=== PATIENT | female | born 1985 | race African-American/Black ===

== ENCOUNTER 2019-12-01 10:56 | Emergency (ER) | payer SELFPAY ==
--- NOTE | 2019-12-01 11:00 | NUR ---
See downtime documentation
[2019-12-01] MEDS ORDERED: SODIUM CHLORIDE 0.9% 1000ML 1,000 ML IV SCH (11:30)
[2019-12-01] MEDS ORDERED: PROMETHAZINE 12.5MG/ NACL 0.9% 12.5 MG/50 ML BAG IV ONE (11:30)
[2019-12-01] MEDS ORDERED: FENTANYL CITRATE/PF 100MCG/2 ML INJ IV ONE (11:30)
[2019-12-01] MEDS ORDERED: PROMETHAZINE HCL (IM) 25 MG/ML VIAL ONE (11:41)
[2019-12-01] MEDS ORDERED: FENTANYL CITRATE/PF 100MCG/2 ML INJ ONE (11:41)
[2019-12-01] MEDS ORDERED: TYLENOL WITH C1 EACH PO (12:34)
[2019-12-01] MEDS ORDERED: PHENADOZ25 MG RC (12:34)
[2019-12-01] MEDS ORDERED: BACTRIM DS TAB1 EACH PO (12:34)
--- NOTE | 2019-12-01 12:57 | Diagnostic Imaging Report ---
EXAM: CT Abdomen and Pelvis WITHOUT intravenous contrast INDICATION: Flank pain COMPARISON: Pelvic ultrasound of the same day TECHNIQUE: Abdomen and pelvis were scanned utilizing a multidetector helical scanner from the lung base to the pubic symphysis without administration of IV contrast. Coronal and sagittal reformations were obtained. IV CONTRAST: None ORAL CONTRAST: None COMPLICATIONS: None RADIATION DOSE: Total DLP: 680 mGy*cm Dose modulation, iterative reconstruction, and/or weight based adjustment of the mA/kV was utilized to reduce the radiation dose to as low as reasonably achievable. FINDINGS: LOWER THORAX: Normal. HEPATOBILIARY: No focal liver lesion. Unremarkable gallbladder. SPLEEN: No splenomegaly. PANCREAS: No focal masses or ductal dilatation. ADRENALS: No adrenal nodules. KIDNEYS/URETERS: No hydronephrosis, stones, or solid mass lesions. PELVIC ORGANS/BLADDER: Unremarkable. PERITONEUM / RETROPERITONEUM: No free air or fluid. LYMPH NODES: No lymphadenopathy. VESSELS: Unremarkable. GI TRACT: No abnormal bowel thickening. No bowel obstruction. Normal appendix. BONES AND SOFT TISSUES: No acute osseous injury. No suspicious lytic or blastic lesions. IMPRESSION: No acute findings in the abdomen or pelvis. Specifically, no renal calculi or hydronephrosis. Signed by: Matthew Padilla MD on 12/01/2019 12:54 PM
--- NOTE | 2019-12-01 12:59 | Diagnostic Imaging Report ---
Exam: Pelvic ultrasound. History: Pelvic pain Comparison: CT abdomen and pelvis of the same day Findings: Transabdominal and endovaginal sonographic evaluation of the pelvis. The uterus is anteverted in position, measuring 6.2 x 3.7 x 5.2cm. Endometrial stripe thickness is 3 millimeters. The right ovary measures 2.8 x 2.3 x 2.5 cm and appears unremarkable. The left ovary is not well-visualized due to overlying bowel gas. No free fluid in the pelvis. Impression: Left ovary not well-visualized due to overlying bowel gas. Otherwise, normal pelvic ultrasound. Signed by: Matthew Padilla MD on 12/01/2019 12:55 PM
== END 2019-12-01 13:27 | disposition home or self-care (01) ==
LOC: FSED 10:56 → EDBD 10:56 → FSED 13:27
DX: R30.0 Dysuria (principal); R10.2 Pelvic and perineal pain; R11.2 Nausea with vomiting, unspecified
CPT/HCPCS: 74176; 76856; 80053; 81003; 81025; 85025; 87086; 99284; J2550; J3010; J7030

== ENCOUNTER 2019-12-30 20:40 | Emergency (ER) | payer OTHER ==
[~2019-12-30] VITALS: Ht 165.1 cm; Wt 68.0 kg
[~2019-12-30 20:40] MED LIST: BACTRIM DS TAB1 EACH PO; PHENADOZ25 MG RC; TYLENOL WITH C1 EACH PO
--- OUTSIDE RECORDS SUMMARY | 2019-12-30 20:45 | XMS REPORT | Clinical Summary ---
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 Active QUEtiapine (SEROQUEL) 100 Take 1 tablet 14 tablet 0 mg tabletIndications: by mouth at 8 Undifferentiated bedtime schizophrenia, nightly for Polysubstance abuse 14 days. Active citalopram (CELEXA) 20 mg Take 1 tablet 30 tablet 0 tabletIndications: PTSD by mouth 8 (post-traumatic stress daily. disorder) Active gabapentin (NEURONTIN) Take 1 90 capsule 0 400 mg capsule by 8 capsuleIndications: PTSD mouth 3 times (post-traumatic stress daily. disorder) Active nicotine polacrilex Place 1 Each 30 Each 0 07/01 (NICORETTE) 2 mg inside cheek 8 GumIndications: PTSD as needed for (post-traumatic stress Other disorder) (nicotene). Active QUEtiapine (SEROQUEL) 100 Take 1 tablet 30 tablet 0 mg tabletIndications: by mouth at 8 PTSD (post-traumatic bedtime stress disorder) nightly. Active QUEtiapine (SEROQUEL) 50 Take 1 tablet 60 tablet 0 07/01/201 mg tabletIndications: by mouth 2 8 PTSD (post-traumatic times daily. 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 Acute stress disorder 11/17/2011 Pelvic pain in female 02/06/2011 Drug ingestion Benzodiazepine abuse Moderate cocaine use disorder Cocaine use Substance-induced disorder Chronic pain of right thumb Encounters Care Team Description Date Type Specialty Tarsha Segovia RN 02/08/2019 Nurse Triage after 12/29/2018 Immunizations Name Administration Dates Next Due Ceftriazone 250mg 04/24/2011 Injection Rho (d) Immune Glob 1500u 03/14/2015 Vial Inj In Clinic Family History Medical History Relation Name Comments Cancer Mother ovarian Hypertension Mother Renal Disease Mother Relation Name Status Comments Mother Social History Date Tobacco Use Types Packs/Day Years Used Current Every Day Smoker Cigarettes 1 12 Smokeless Tobacco: Never Used Tobacco Cessation: Ready to Quit: No Comments: quit 1 month ago Drinks/Week oz/Week Comments Alcohol Use denies No Sex Assigned at Date Recorded Not on file Industry Job Start Date Occupation Not on file Not on file Not on file Travel End Travel History Travel Start No recent travel history available. Last Filed Vital Signs Not on file Plan of Treatment Health Maintenance Due Date Last Done Comments Cervical Cancer Scrn (3 12/20/2004 Yrs) IMM Influenza Seasonal 05/04/2020 Oct to October (>/= 19 yrs) Results Not on fileafter 12/29/2018 Insurance Type Payer Benefit Subscriber ID Effective Phone Address Plan / Dates Group [place] [id number] xxxxxxxxx 2018- [phone] [address] [facility] [id number] [place], [place] [employer]GRAM [id number] [facility] SELF-PAY SELF-PAY xxxxxx 2017-2 [address] [place] [address] Advance Directives Date Inactivated Comments Code Status Date Activated 07/02/2018 4:23 PM Full Code 06/17/2018 5:49 PM 05/05/2018 4:24 PM Full Code 04/29/2018 5:42 PM 10/20/2017 4:52 PM Full Code 10/15/2017 4:04 PM 11/01/2015 9:27 PM Full Code 10/26/2015 4:55 AM 03/29/2015 6:22 PM Full Code 03/28/2015 3:16 AM
--- OUTSIDE RECORDS SUMMARY | 2019-12-30 20:45 | XMS REPORT | Clinical Summary ---
Author Author [facility] Organization [facility] Address Unknown Phone Unavailable Care Team Providers Care Wine Steward Name Role Phone Philip Mcclain MD PCP Allergies Comments Active Allergy Reactions Severity Noted Date Nsaids (Non-Steroidal Anaphylaxis High 05/07/20 16 Anti-Inflammatory Drug) Penicillins Anaphylaxis High 04/09/2016 Phenazopyridine Anaphylaxis High Tongue swelling Risperidone Other (See 05/25/2019 Comments) Tomato Rash Low 04/28/2019 Ketorolac 12/17/2016 Tramadol Rash Low 12/07/2017 Ondansetron Hcl Rash Low 04/06/2019 Medications End Date Status Medication Sig Dispensed Refills Start Date 04/30/2019 Discontinued (Stop Taking at Discharge) ARIPiprazole (ABILIFY) 10 Take 10 mg by 0 MG tablet mouth every morning. 04/30/2019 Discontinued (Stop Taking at Discharge) cephalexin (KEFLEX) 500 Take 500 mg 0 MG capsule by mouth 4 (four) times a day. X 14 days. Started on 10-16-2016 04/30/2019 Discontinued (Reorder) citalopram (CeleXA) 20 MG Take 20 mg by 0 tablet mouth every morning. 04/30/2019 Discontinued (Reorder) clindamycin (CLEOCIN) 300 Take 300 mg 0 MG capsule by mouth 3 (three) times a day. X 14 days. Started on 10-16-2016 04/30/2019 Discontinued (Stop Taking at Discharge) diazePAM (VALIUM) 10 MG Take 10 mg by 0 tablet mouth 3 (three) times a day. 04/30/2019 Discontinued (Stop Taking at Discharge) zolpidem (AMBIEN) 10 mg Take 10 mg by 0 tablet mouth nightly as needed for sleep. 04/30/2019 Discontinued (Stop Taking at Discharge) promethazine (PHENERGAN) Take 1 tablet 20 tablet 0 25 MG tablet (25 mg total) 9 by mouth every 6 (six) hours as needed for nausea or vomiting for up to 30 days. 05/30/2019 citalopram (CeleXA) 20 MG Take 1 tablet 30 tablet 0 tabletIndications: major (20 mg total) 9 depressive disorder by mouth every morning for 30 days .major depressive disorder. 05/30/2019 ARIPiprazole (ABILIFY) 15 Take 1 tablet 30 tablet 0 MG tabletIndications: (15 mg total) 9 reports AH's by mouth daily for 30 days .reports AH's. 05/30/2019 cephalexin (KEFLEX) 500 Take 1 60 capsule 0 MG capsuleIndications: capsule (500 9 Osteomyelitis mg total) by mouth 2 (two) times a day for 30 days .Osteomyeliti s. 05/30/2019 clindamycin (CLEOCIN) 300 Take 1 90 capsule 0 MG capsuleIndications: capsule (300 9 Osteomyelitis mg total) by mouth 3 (three) times a day for 90 doses .Osteomyeliti s. X 14 days. Started on 10-16-2016 05/30/2019 acetaminophen-codeine Take 1 tablet 10 tablet 0 (TYLENOL WITH CODEINE #3) by mouth 9 300-30 mg per every 8 tabletIndications: acute (eight) hours pain as needed for moderate pain (in hNSDS) for up to 10 doses .Acute Pain. 05/30/2019 gabapentin (NEURONTIN) Take 1 90 capsule 0 300 mg capsule (300 9 capsuleIndications: mg total) by ANXIETY mouth 3 (three) times a day for 30 days .ANXIETY. 05/30/2019 nicotine (NICODERM CQ) 14 Place 1 patch 30 patch 0 mg/24 hrIndications: on the skin 9 smoking cessation daily for 30 days .Stop Smoking. 05/30/2019 traZODone (DESYREL) 100 Take 1 tablet 30 tablet 0 MG tabletIndications: (100 mg 9 insomnia associated with total) by depression mouth nightly as needed for sleep for up to 30 days .insomnia associated with depression. 06/23/2019 acetaminophen-codeine Take 1-2 15 tablet 0 06/04 (TYLENOL WITH CODEINE #3) tablets by 9 300-30 mg per mouth every 6 tabletIndications: acute (six) hours pain as needed for moderate pain for up to 3 days .Acute Pain. 08/16/2019 doxycycline (VIBRAMYCIN) Take 2 28 capsule 0 0 50 MG capsule capsules (100 0 mg total) by mouth 2 (two) times a day for 7 days. 10/09/2019 promethazine (PHENERGAN) Take 1 tablet 20 tablet 0 25 MG tablet (25 mg total) 0 by mouth every 6 (six) hours as needed for nausea or vomiting for up to 30 days. 09/16/2019 nitrofurantoin, Take 1 14 capsule 0 macrocrystal-monohydrate, capsule (100 0 (MACROBID) 100 MG capsule mg total) by mouth 2 (two) times a day for 7 days. Active Problems Problem Noted Date Right arm cellulitis 08/07/2019 Schizoaffective disorder 04/28/2019 affected by growth restriction 12/04 Suicidal ideation 12/04/2017 Polysubstance abuse 12/04/2017 Osteomyelitis 12/04/2017 Urinary tract infection affecting care of mother, ant epartum 11/27/2017 Osteomyelitis of finger of right hand 11/04/2016 Cellulitis 10/28/2016 Deep postoperative wound infection 10/28/2016 Osteomyelitis of finger 10/28/2016 Bacterial skin infection 10/25/2016 Cellulitis of finger of right hand 10/24/2016 Encounters Care Team Description Date Type Specialty Doni Martinez MD Lower abdominal pain (Primary Dx); Urinary tract infection without hematuria, site unspecified; Cocaine abuse (HCC) 09/09/2019 Emergency Emergency Medicine Denilson Connell DO Kandala, Ranganath, MD Right arm cellulitis (Primary Dx) 08/07/2019 [facility] General Internal Me dicine - Encounter 08/09/2019 Ele House MD Hemorrhagic ovarian cyst (Primary Dx); Right lower quadrant abdominal pain 06/20/2019 Emergency Emergency Medicine - 06/21/2019 Mart Renae MD Extrapyramidal symptom (Primary Dx); Suicidal ideations 06/08/2019 Emergency Emergency Medicine Rosales Goode DO Tran, Boi Phuong, MD Suicidal ideation (Primary Dx); Depression, unspecified depression type 05/27/2019 Emergency Emergency Medicine - 05/29/2019 05/27/2019 Intake Access Aly Navas MD Tardive dyskinesia (Primary Dx); Adverse effect of drug, initial encounter 05/25/2019 Emergency Emergency Medicine Corbin Leung MD Cocaine abuse (HCC) (Primary Dx); Drug induced hallucinations (HCC) 05/24/2019 Emergency Emergency Medicine Fernanda Noland MD Flack, James N., MD 04/27/2019 Hospital Psychiatry - Encounter 04/30/2019 Brian Pond MD Suicidal ideation (Primary Dx); Auditory hallucinations; Acute psychosis (HCC) 04/27/2019 Emergency Emergency Medicine 04/27/2019 Intake Access Pedro Underwood MD Lower abdominal pain (Primary Dx) 04/06/2019 Emergency Emergency Medicine after 12/29/2018 Immunizations Name Administration Dates Next Due Rho (D) Immune Globulin 11/02/2016 Tdap 08/18/2016 Family History Medical History Relation Name Comments No Known Problems Brother No Known Problems Cousin No Known Problems Father No Known Problems Maternal Aunt No Known Problems Maternal Grandfather No Known Problems Maternal Grandmother No Known Problems Maternal Uncle Cancer Mother No Known Problems Other No Known Problems Paternal Aunt No Known Problems Paternal Grandfather No Known Problems Paternal Grandmother No Known Problems Paternal Uncle No Known Problems Sister Relation Name Status Comments Brother Cousin Father Maternal Aunt Maternal Grandfather Maternal Grandmother Maternal Uncle Mother Other Paternal Aunt Paternal Grandfather Paternal Grandmother Paternal Uncle Sister Social History Date Tobacco Use Types Packs/Day Years Used Current Some Day Smoker Cigarettes 0.5 6 Smokeless Tobacco: Current User Tobacco Cessation: Ready to Quit: No; Co unseling Given: Yes Comments: states she quit smoking "6 months ago" Drinks/Week oz/Week Comments Alcohol Use No Sex Assigned at Date Recorded Not on file Industry Job Start Date Occupation Not on file Not on file Not on file Travel End Travel History Travel Start No recent travel history available. Last Filed Vital Signs Reading Time Taken Comments Vital Sign 106/59 09/09/2019 9:07 PM BOOKMOBILE CLERK Blood Pressure 81 09/09/2019 9:07 PM BOOKMOBILE CLERK Pulse 36.6 C (97.9 F) 09/09/2019 8:35 PM BOOKMOBILE CLERK Temperature 19 09/09/2019 9:07 PM BOOKMOBILE CLERK Respiratory Rate 99% 09/09/2019 9:07 PM BOOKMOBILE CLERK Oxygen Saturation - - Inhaled Oxygen Concentration 63.5 kg (140 lb) 09/09/2019 3:50 PM BOOKMOBILE CLERK Weight 165.1 cm (5' 5") 09/09/2019 3:50 PM BOOKMOBILE CLERK Height 23.3 09/09/2019 3:50 PM BOOKMOBILE CLERK Body Mass Index Plan of Treatment Health Maintenance Due Date Last Done Comments CERVICAL CANCER SCREENING 12/20/2004 INFLUENZA VACCINE 03/04/2020 Procedures Comments Procedure Name Priority Date/Time Associated Diag nosis US PELVIC TRANSABDOMINAL STAT 09/09/2019 7:35 PM BOOKMOBILE CLERK URINE CULTURE STAT 09/09/2019 5:54 PM BOOKMOBILE CLERK ESTIMATED GFR STAT 09/09/2019 4:55 PM BOOKMOBILE CLERK URINE DRUGS OF ABUSE STAT 09/09/2019 SCREEN 4:55 PM BOOKMOBILE CLERK HCG QUALITATIVE, SERUM STAT 09/09/2019 SCREEN 4:55 PM BOOKMOBILE CLERK URINALYSIS SCREEN AND STAT 09/09/2019 MICROSCOPY, WITH REFLEX 4:55 PM BOOKMOBILE CLERK TO CULTURE LIPASE LEVEL STAT 09/09/2019 4:55 PM BOOKMOBILE CLERK COMPREHENSIVE METABOLIC STAT 09/09/2019 PANEL 4:55 PM BOOKMOBILE CLERK HC COMPLETE BLD COUNT STAT 09/09/2019 W/AUTO DIFF 4:55 PM BOOKMOBILE CLERK ESTIMATED GFR Routine 08/09/2019 4:45 AM BOOKMOBILE CLERK BASIC METABOLIC PANEL Routine 08/09/2019 4:45 AM BOOKMOBILE CLERK URINE DRUGS OF ABUSE Routine 08/08/2019 SCREEN 2:15 PM BOOKMOBILE CLERK ESTIMATED GFR Routine 08/08/2019 5:06 AM BOOKMOBILE CLERK HC COMPLETE BLD COUNT Routine 08/08/2019 W/AUTO DIFF 5:06 AM BOOKMOBILE CLERK BASIC METABOLIC PANEL Routine 08/08/2019 5:06 AM BOOKMOBILE CLERK LACTIC ACID LEVEL, SEPSIS Timed 08/08/2019 - NOW AND REPEAT 2X EVERY 2:35 AM BOOKMOBILE CLERK 3 HOURS LACTIC ACID LEVEL, SEPSIS Timed 08/07/2019 - NOW AND REPEAT 2X EVERY 11:48 PM BOOKMOBILE CLERK 3 HOURS ESTIMATED GFR STAT 08/07/2019 9:25 PM BOOKMOBILE CLERK HCG QUALITATIVE, SERUM STAT 08/07/2019 SCREEN 9:25 PM BOOKMOBILE CLERK LACTIC ACID LEVEL, SEPSIS STAT 08/07/2019 - NOW AND REPEAT 2X EVERY 9:25 PM BOOKMOBILE CLERK 3 HOURS HC COMPLETE BLD COUNT STAT 08/07/2019 W/AUTO DIFF 9:25 PM BOOKMOBILE CLERK COMPREHENSIVE METABOLIC STAT 08/07/2019 PANEL 9:25 PM BOOKMOBILE CLERK BLOOD CULTURE, AEROBIC & Routine 08/07/2019 ANAEROBIC 9:25 PM BOOKMOBILE CLERK BLOOD CULTURE, AEROBIC & Routine 08/07/2019 ANAEROBIC 9:20 PM BOOKMOBILE CLERK US PELVIC TRANSVAGINAL STAT 06/21/2019 12:11 AM BOOKMOBILE CLERK US PELVIC TRANSABDOMINAL STAT 06/21/2019 12:[address] ABDOMEN PELVIS W STAT 06/20/2019 CONTRAST 11:14 PM BOOKMOBILE CLERK GRAM STAIN STAT 06/20/2019 9:23 PM BOOKMOBILE CLERK URINE CULTURE STAT 06/20/2019 9:23 PM BOOKMOBILE CLERK ESTIMATED GFR STAT 06/20/2019 8:58 PM BOOKMOBILE CLERK LIPASE LEVEL STAT 06/20/2019 8:58 PM BOOKMOBILE CLERK COMPREHENSIVE METABOLIC STAT 06/20/2019 PANEL 8:58 PM BOOKMOBILE CLERK HC COMPLETE BLD COUNT STAT 06/20/2019 W/AUTO DIFF 8:58 PM BOOKMOBILE CLERK HCG QUALITATIVE, URINE STAT 06/20/2019 SCREEN 8:54 PM BOOKMOBILE CLERK URINALYSIS SCREEN AND STAT 06/20/2019 MICROSCOPY, WITH REFLEX 8:54 PM BOOKMOBILE CLERK TO CULTURE ESTIMATED GFR STAT 06/08/2019 7:25 AM BOOKMOBILE CLERK COMPREHENSIVE METABOLIC STAT 06/08/2019 PANEL 7:25 AM BOOKMOBILE CLERK HC COMPLETE BLD COUNT STAT 06/08/2019 W/AUTO DIFF 7:25 AM BOOKMOBILE CLERK T4, FREE STAT 06/08/2019 7:02 AM BOOKMOBILE CLERK THYROID STIMULATING STAT 06/08/2019 HORMONE 7:02 AM BOOKMOBILE CLERK HCG QUALITATIVE, SERUM STAT 06/08/2019 SCREEN 7:02 AM BOOKMOBILE CLERK URINE DRUGS OF ABUSE STAT 06/08/2019 SCREEN 7:02 AM BOOKMOBILE CLERK ESTIMATED GFR STAT 05/27/2019 2:45 PM CDT SALICYLATE LEVEL STAT 05/27/2019 2:45 PM CDT ACETAMINOPHEN LEVEL STAT 05/27/2019 2:45 PM CDT HCG QUALITATIVE, SERUM STAT 05/27/2019 SCREEN 2:45 PM CDT ALCOHOL LEVEL, BLOOD STAT 05/27/2019 2:45 PM CDT CREATINE KINASE, TOTAL STAT 05/27/2019 (CPK) 2:45 PM CDT THYROID STIMULATING STAT 05/27/2019 HORMONE 2:45 PM CDT T4, FREE STAT 05/27/2019 2:45 PM CDT COMPREHENSIVE METABOLIC STAT 05/27/2019 PANEL 2:45 PM CDT HC COMPLETE BLD COUNT STAT 05/27/2019 W/AUTO DIFF 2:45 PM CDT ECG 12-LEAD Routine 05/27/2019 2:40 PM CDT ECG ED PRELIMINARY Routine 05/27/2019 INTERPRETATION 2:09 PM CDT ESTIMATED GFR STAT 05/25/2019 3:00 PM CDT BASIC METABOLIC PANEL STAT 05/25/2019 3:00 PM CDT HC COMPLETE BLD COUNT STAT 05/25/2019 W/AUTO DIFF 3:00 PM CDT ESTIMATED GFR STAT 05/24/2019 3:08 PM CDT SALICYLATE LEVEL STAT 05/24/2019 3:08 PM CDT ACETAMINOPHEN LEVEL STAT 05/24/2019 3:08 PM CDT HCG QUALITATIVE, SERUM STAT 05/24/2019 SCREEN 3:08 PM CDT ALCOHOL LEVEL, BLOOD STAT 05/24/2019 3:08 PM CDT THYROID STIMULATING STAT 05/24/2019 HORMONE 3:08 PM CDT T4, FREE STAT 05/24/2019 3:08 PM CDT COMPREHENSIVE METABOLIC STAT 05/24/2019 PANEL 3:08 PM CDT HC COMPLETE BLD COUNT STAT 05/24/2019 W/AUTO DIFF 3:08 PM CDT URINE DRUGS OF ABUSE STAT 05/24/2019 SCREEN 2:24 PM CDT URINALYSIS SCREEN AND STAT 05/24/2019 MICROSCOPY, WITH REFLEX 2:24 PM CDT TO CULTURE URINE CULTURE STAT 05/24/2019 2:24 PM CDT HEMOGLOBIN A1C Routine 04/28/2019 10:55 PM CDT LIPID PANEL Routine 04/28/2019 4:00 AM CDT URINALYSIS SCREEN AND STAT 04/27/2019 MICROSCOPY, WITH REFLEX 8:58 PM CDT TO CULTURE URINE DRUGS OF ABUSE STAT 04/27/2019 SCREEN 8:58 PM CDT URINE CULTURE STAT 04/27/2019 8:58 PM CDT ECG ED PRELIMINARY Routine 04/27/2019 INTERPRETATION 3:24 PM CDT SALICYLATE LEVEL STAT 04/27/2019 3:20 PM CDT ACETAMINOPHEN LEVEL STAT 04/27/2019 3:20 PM CDT T4, FREE STAT 04/27/2019 3:20 PM CDT THYROID STIMULATING STAT 04/27/2019 HORMONE 3:20 PM CDT HCG QUALITATIVE, SERUM STAT 04/27/2019 SCREEN 3:17 PM CDT CREATINE KINASE, TOTAL STAT 04/27/2019 (CPK) 3:17 PM CDT HC COMPLETE BLD COUNT STAT 04/27/2019 W/AUTO DIFF 3:17 PM CDT ESTIMATED GFR STAT 04/27/2019 3:17 PM CDT ALCOHOL LEVEL, BLOOD STAT 04/27/2019 3:17 PM CDT COMPREHENSIVE METABOLIC STAT 04/27/2019 PANEL 3:17 PM CDT ECG 12-LEAD STAT 04/27/2019 2:51 PM CDT HC COMPLETE BLD COUNT STAT 04/06/2019 W/AUTO DIFF 10:[address] ABDOMEN PELVIS W STAT 04/06/2019 CONTRAST 10:14 PM CDT ESTIMATED GFR STAT 04/06/2019 8:50 PM CDT LIPASE LEVEL STAT 04/06/2019 8:50 PM CDT COMPREHENSIVE METABOLIC STAT 04/06/2019 PANEL 8:50 PM CDT HCG QUALITATIVE, URINE STAT 04/06/2019 SCREEN 7:14 PM CDT URINALYSIS SCREEN AND STAT 04/06/2019 MICROSCOPY, WITH REFLEX 7:14 PM CDT TO CULTURE URINE CULTURE STAT 04/06/2019 7:14 PM CDT after 12/29/2018 Results * US Pelvic Transabdominal (09/09/2019 7:35 PM BOOKMOBILE CLERK) Only the most recent of 2 results within the time period is included. Specimen Narrative Performed At EXAMINATION: US PELVIC TRANSABDOMINAL [facility] CLINICAL HISTORY: pelvic pain COMPARISON: None. TECHNIQUE:Transabdominal sonographic im ages of the pelvis were obtained. The patient refused transvaginal examinatio n. FINDINGS: The uterus is 6.6 x 4.6 x 4.7 cm. The endometrial strip is 3 mm in thickness. There is no myometrial abnormality. Neither ovary is visualized. There is n o adnexal mass. Impression: Normal uterus. Ovaries not seen. Patien t refused transvaginal examination. [id number] Procedure Note Interface, Radiology Results Incoming - 09/09/2019 8:21 PM BOOKMOBILE CLERK EXAMINATION: US PELVIC TRANSABDOMINAL CLINICAL HISTORY: pelvic pain COMPARISON: None. TECHNIQUE:Transabdominal sonographic images of the pelvis were obtained. The patient refused transvaginal examination. FINDINGS: The uterus is 6.6 x 4.6 x 4.7 cm. The endometrial strip is 3 mm in thickness. There is no myometrial abnormality. Neither ovary is visualized. There is no adnexal mass. Impression: Normal uterus. Ovaries not seen. Patient refused transvaginal examination. [id number] Performing Organization Address City/State/Zipcode Ph one Number [facility] [address] [place] [address] * Urine culture (09/09/2019 5:54 PM BOOKMOBILE CLERK) Only the most recent of 5 results within the time period is included. Urine culture Mixed vane 10-4 col/cc [place] isolate Comment: [place] Specimen Information HOSPITAL Specimen Source: Urine Specimen Site: Clean catch Specimen Urine Performing Organization Address City/State/Zipcode Ph one Number [facility] DEPARTMENT OF [address] [place] [address] PATHOLOGY AND GENOMIC MEDICINE [facility] [address] [place] [address] HOSPITAL * Urinalysis screen and microscopy, with reflex to culture (09/09/2019 4:55 PM BOOKMOBILE CLERK) Only the most recent of 5 results within the time period is included. [facility] Specimen site Clean catch [facility] Color, UA Shazia [facility] Appearance, UA Turbid [facility] Specific 1.039 (H) 1.001 - 1.030 [place] gravity, [facility] pH, UA 5.0 5.0 - 9.0 [facility] Protein, UA 1+ (A) Negative [facility] Glucose, UA Negative Negative [facility] Ketones, UA Trace (A) Negative [facility] Bilirubin, UA Negative Negative [facility] Blood, UA Negative Negative [facility] Nitrite, UA Negative Negative [facility] Urobilinogen, <2.0 <2.0 E.U./dL [facility] Leukocyte Trace (A) Negative [place] esterase, [facility] Epithelial >20 /HPF [place] cells, [facility] WBC, UA 15 (H) 0 - 4 /HPF [facility] RBC, UA 21 (H) 0 - 5 /HPF [facility] Bacteria, UA Few None seen [facility] Yeast, UA None seen [facility] Yeast with None seen [place] [facility] Specimen Urine Performing Organization Address City/State/Zipcode Ph one Number [facility] [place] [address] [place], [place] [address] PATHOLOGY AND GENOMIC MEDICINE [facility] [address] [place] [address] [facility] * Estimated GFR (09/09/2019 4:55 PM BOOKMOBILE CLERK) Only the most recent of 11 results within the time period is included. [facility] Estimated GFR >=90 mL/min/1.73 m2 [place] Comment: [place] SUGAR Catergory Units [facility] Interpretation G1 >=90 Normal or high G2 60-89 Mildly decreased G3a 45-59 Mildly to moderately decreased G3b 30-44 Moderately to severely decreased G4 15-29 Severely decreased G5 <15 Kidney failure The eGFR was calculated using the Chronic Kidney Disease Epidemiology Collaboration (CKD-EPI) equation. Interpretation is based on recommendations of the National Kidney Foundation-Kidney Disease Outcomes Quality Initiative (NKF-KDOQI) published in 2014. Specimen Plasma specimen Performing Organization Address City/[facility] Ph one Number [facility] [place] [address] [place], [place] [address] PATHOLOGY AND GENOMIC MEDICINE [facility] [id number] [place] [id number] [place] [address] * Urine drugs of abuse screen (09/09/2019 4:55 PM BOOKMOBILE CLERK) Only the most recent of 5 results within the time period is included. Amphetamine Positive (A) [place] screen, urine [facility] Barbiturate Negative [place] screen, urine [facility] Benzodiazepine Negative [place] screen, urine [facility] Cocaine screen, Positive (A) [place] urine [facility] Methadone Negative [place] metabolite [facility] (EDDP), urine [facility] Opiates screen, Negative [place] urine [facility] Phencyclidine Negative [place] screen, urine [facility] Tricyclic Negative [place] screen, urine [facility] Cannabinoid Negative [place] screen, urine Comment: [place] [facility] Drug screen minimum [facility] concentration of detectability Amphetamines 1000 ng/mL Barbiturates 200 ng/mL Benzodiazepines 300 ng/mL Cocaine 300 ng/mL Methadone 300 ng/mL Opiates 300 ng/mL Phencyclidine 25 ng/mL Cannabinoids 50 ng/mL Tricyclics 1000 ng/mL Results are from screening tests and should only be used for medical evaluation. Drug testing for legal purposes requires definitive (or confirmatory) testing methods, which are available upon request. Contact the laboratory if definitive testing is required. Specimen Urine Performing Organization Address City/[facility] Ph one Number [facility] [place] [address] [place], [place] [address] PATHOLOGY AND GENOMIC MEDICINE [facility] [address] [place], [place] [phone] [place] [address] * CBC with platelet and differential (09/09/2019 4:55 PM BOOKMOBILE CLERK) Only the most recent of 10 results within the time period is included. WBC 4.8 4.5 - 11.0 k/uL [facility] RBC 3.91 (L) 4.20 - 5.50 m/uL [facility] HGB 12.1 12.0 - 16.0 g/dL [facility] HCT 36.5 (L) 37.0 - 47.0 % [facility] MCV 93.4 82.0 - 100.0 fL [facility] MCH 30.9 27.0 - 34.0 pg [facility] MCHC 33.2 31.0 - 37.0 g/dL [facility] RDW - SD 45.6 37.0 - 55.0 fL [facility] MPV 11.1 (H) 6.9 - 11.0 fL [facility] Platelet count 255 150 - 400 K/uL [facility] Nucleated RBC 0.00 /100 WBC [facility] Neutrophils 48.3 39.0 - 69.0 % [facility] Lymphocytes 40.9 25.0 - 45.0 % [facility] Monocytes 7.5 0.0 - 10.0 % [facility] Eosinophils 2.3 0.0 - 5.0 % [facility] Basophils 0.8 0.0 - 1.0 % [facility] Immature 0.2 0.0 - 1.0 % [place] granulocytes [facility] Specimen Blood Performing Organization Address [facility] Ph one Number [facility] DEPARTMENT OF [address] [place] [address] PATHOLOGY AND GENOMIC MEDICINE [facility] [address] [place] [address] [facility] * hCG qualitative, serum screen (09/09/2019 4:55 PM BOOKMOBILE CLERK) Only the most recent of 6 results within the time period is included. hCG NegativeComment: Sensitivity [place] qualitative of HCG test: 25 mIU/mL [facility] Specimen Blood Performing Organization Address City/[facility] Ph one Number [facility] DEPARTMENT OF [address] [place] [phone] PATHOLOGY AND GENOMIC MEDICINE [address] * Lipase level (09/09/2019 4:55 PM BOOKMOBILE CLERK) Only the most recent of 3 results within the time period is included. Lipase 11 (L) 13 - 60 U/L [facility] Specimen Plasma specimen Performing Organization Address City/[facility] Ph one Number [facility] DEPARTMENT OF [address] [place] [address] [address] * Comprehensive metabolic panel (09/09/2019 4:55 PM BOOKMOBILE CLERK) Only the most recent of 8 results within the time period is included. Sodium 133 (L) 135 - 148 mEq/L [facility] Potassium 3.3 (L) 3.5 - 5.0 mEq/L [facility] Chloride 101 98 - 112 mEq/L [facility] CO2 21 (L) 24 - 31 mEq/L [facility] Anion gap 11@ANIO 7 - 15 mEq/L [facility] BUN 13 6 - 20 mg/dL [facility] Creatinine 0.63 0.50 - 0.90 mg/dL [facility] Glucose 89 65 - 99 mg/dL [facility] Calcium 9.3 8.3 - 10.2 mg/dL [facility] Protein 7.4 6.3 - 8.3 g/dL [facility] Albumin 4.1 3.5 - 5.0 g/dL [facility] A/G ratio 1.2 0.7 - 3.8 [facility] Alkaline 49 35 - 104 U/L [place] phosphatase [facility] AST 20 10 - 35 U/L [facility] ALT 11 5 - 50 U/L [facility] Total bilirubin <0.2 0.2 - 1.2 mg/dL [facility] Specimen Plasma specimen Performing Organization Address City/[facility] Ph one Number [facility] DEPARTMENT OF [address] [place] [address] PATHOLOGY AND GENOMIC MEDICINE [address] * Basic metabolic panel (08/09/2019 4:45 AM BOOKMOBILE CLERK) Only the most recent of 3 results within the time period is included. Sodium 137 135 - 148 mEq/L [facility] Potassium 4.1 3.5 - 5.0 mEq/L [facility] Chloride 109 98 - 112 mEq/L [facility] CO2 20 (L) 24 - 31 mEq/L [facility] Anion gap 8@ANIO 7 - 15 mEq/L [facility] BUN 10 6 - 20 mg/dL [facility] Creatinine 0.67 0.50 - 0.90 mg/dL [facility] Glucose 94 65 - 99 mg/dL [facility] Calcium 8.3 8.3 - 10.2 mg/dL [facility] Specimen Plasma specimen Performing Organization Address City/[facility] Ph one Number [facility] [place]MENT [place] [id number] [place] [address] 7 [address]479 PATHOLOGY AND GENOMIC MEDICINE [address] * Lactic acid level, SEPSIS - Now and repeat 2x every 3 hours (08/08/2019 2:35 AM BOOKMOBILE CLERK) Only the most recent of 3 results within the time period is included. Lactic acid 0.7 0.5 - 2.2 mmol/L [facility] Specimen Plasma specimen Performing Organization Address City/[facility] Ph one Number [facility] DEPARTMENT [place] [id number] [place] [address] 7 [phone] PATHOLOGY AND GENOMIC MEDICINE [address] * Blood culture, aerobic & anaerobic (08/07/2019 9:25 PM BOOKMOBILE CLERK) Only the most recent of 2 results within the time period is included. Blood culture No growth after 5 days of [place] isolate incubation. 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, 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 IMPRESSION: 1.See accession #IM [id number] [id number] Procedure Note Hm Interface, Radiology Results Incoming - 06/21/2019 12:31 AM BOOKMOBILE CLERK EXAMINATION: US PELVIC TRANSVAGINAL CLINICAL HISTORY: Pelvic pain neg 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 Specimen Narrative Performed At EXAMINATION: CT ABDOMEN PELVIS W CONTRAST [facility] CLINICAL HISTORY: Abd pain unspecif ied, R sided concern for pyelo TECHNIQUE: Multiple axial images of the abdomen and pelvis were obtained following intravenous administration of iodinated contrast. Sagittal and coronal computerized reformatted images were al so obtained. CT imaging was performed with iterative reconstruction technique and/or automated exposure control to reduce ra diation dose. COMPARISON: 04/06/2019 IMPRESSION: Liver, gallbladder, pancreas, adrenal g lands spleen are normal. Kidneys, ureters and bladder are normal . Arising from the right ovary, there is a complex cystic structure measuring 1 cm, measuring greater density than simp le fluid. This demonstrates somewhat collapsed appearance and there may have been recent rupture. Arising from left ovary, a 1.5 cm complex cystic structure is also seen. These findings may represent hemorrhagic ovarian cysts or endometriomas and woul d be better assessed with dedicated pelvic ultrasound. In addition, a 2 cm cyst is seen of the left ovary. Trace fluid is seen in the pelvis. No f ree intraperitoneal air. Moderate colonic diverticulosis is seen without diverticulitis. Moderate quantity of fecal material seen of the large bowel. The appendix is normal. No gastrointestinal tract obstruction. No acute osseous abnormalities. Summary: Complex cystic structures are seen of t he ovaries bilaterally, which may represent hemorrhagic ovarian cysts or endometriomas. This would better assessed with dedicated pelvic ultrasound. The c omplex cystic structure in the right ovary has a somewhat collapsed appearance and there may have been recent rupture. [id number] Procedure Note Interface, Radiology Results Incoming - 06/20/2019 11:28 PM BOOKMOBILE CLERK EXAMINATION: CT ABDOMEN PELVIS W CONTRAST CLINICAL HISTORY: Abd pain unspecified, R sided concern for pyelo TECHNIQUE: Multiple axial images of the abdomen and pelvis were obtained following intravenous administration of iodinated contrast. Sagittal and coronal computerized reformatted images were also obtained. CT imaging was performed with iterative reconstruction technique and/or automated exposure control to reduce radiation dose. COMPARISON: 04/06/2019 IMPRESSION: Liver, gallbladder, pancreas, adrenal glands spleen are normal. Kidneys, ureters and bladder are normal. Arising from the right ovary, there is a complex cystic structure measuring 1 cm, measuring greater density than simple fluid. This demonstrates somewhat collapsed appearance and there may have been recent rupture. Arising from left ovary, a 1.5 cm complex cystic structure is also seen. These findings may represent hemorrhagic ovarian cysts or endometriomas and would be better assessed with dedicated pelvic ultrasound. In addition, a 2 cm cyst is seen of the left ovary. Trace fluid is seen in the pelvis. No free intraperitoneal air. Moderate colonic diverticulosis is seen without diverticulitis. Moderate quantity of fecal material seen of the large bowel. The appendix is normal. No gastrointestinal tract obstruction. No acute osseous abnormalities. Summary: Complex cystic structures are seen of the ovaries bilaterally, which may represent hemorrhagic ovarian cysts or endometriomas. This would better assessed with dedicated pelvic ultrasound. The complex cystic structure in the right ovary has a somewhat collapsed appearance and there may have been recent rupture. [facility]-[id number] Performing Organization Address City/[facility] Ph one Number [facility] [address] [place] [address] * Gram stain (06/20/2019 9:23 PM BOOKMOBILE CLERK) Gram stain No WBC's [place] result Many Gram variable rods [facility] Comment: HOSPITAL Specimen Information Specimen Source: Urine Specimen Site: Clean catch Specimen Urine Performing Organization Address City/[facility] Ph one Number [facility] DEPARTMENT OF [address] [place] [address] PATHOLOGY AND GENOMIC MEDICINE [place] [facility] [address] [place] [address] HOSPITAL * hCG qualitative, urine screen (06/20/2019 8:54 PM BOOKMOBILE CLERK) Only the most recent of 2 results within the time period is included. Pathologist [facility] [place] hCG NegativeComment: Sensitivity [place] qualitative, of HCG test: 25 mIU/mL [facility] urine [facility] Specimen Urine Performing Organization Address City/[facility] Ph one Number [facility] DEPARTMENT OF [facility] [address] [facility] [place] [address] PATHOLOGY AND GENOMIC MEDICINE [address] * Thyroid stimulating hormone (06/08/2019 7:02 AM BOOKMOBILE CLERK) Only the most recent of 4 results within the time period is included. Pathologist [facility] [place] TSH 1.26 0.55 - 4.78 uIU/mL [facility] Specimen Serum Performing Organization Address City/[facility] Ph one Number [facility] DEPARTMENT OF [address] [place] [address]. [place] [address] PATHOLOGY AND [facility] MEDICINE [address] * T4, free (06/08/2019 7:02 AM BOOKMOBILE CLERK) Only the most recent of 4 results within the time period is included. Pathologist [facility] T4, free 0.9 0.8 - 1.8 ng/dL [facility] Specimen Serum Performing Organization Address [facility] Ph one Number [facility] DEPARTMENT OF [address] [place], [place] [address]may[place] [address] PATHOLOGY AND GENOMIC MEDICINE [address] * Creatine kinase, total (CPK) (05/27/2019 2:45 PM CDT) Only the most recent of 2 results within the time period is included. Pathologist [facility] Creatine kinase 55 35 - 200 U/L [facility] Specimen Plasma specimen Performing Organization Address City/[facility] Ph one Number [facility] DEPARTMENT OF [address] [place] [address]. [place] [address] PATHOLOGY AND GENOMIC MEDICINE [address] * Alcohol level, blood (05/27/2019 2:45 PM CDT) Only the most recent of 3 results within the time period is included. Pathologist [facility] Alcohol <14.1 mg/dL [place] Comment: [facility] None Detected Legal Intoxication in [place] 80 mg/dL (0.08%) - Whole Blood Toxic Concentration 200 mg/dL (0.2%) Potentially Fatal 350 - 500 mg/dL (0.35 - 0.5%) Alcohol percent 0.014 % [facility] Specimen Plasma specimen Performing Organization Address [facility] Ph one Number [facility] DEPARTMENT OF [address] [place] [address] PATHOLOGY AND GENOMIC MEDICINE [address] * Acetaminophen level (05/27/2019 2:45 PM CDT) Only the most recent of 3 results within the time period is included. Acetaminophen <15.9 ug/mL [place] level Comment: [facility] 10-30 ug/mL Possible Toxicity 150-200 ug/mL Probable Toxicity >200 ug/mL Specimen Serum Performing Organization Address [facility] Ph one Number [facility] [address] PATHOLOGY AND [facility] MEDICINE [address] * Salicylate level (05/27/2019 2:45 PM CDT) Only the most recent of 3 results within the time period is included. Salicylate <0.4 mg/dL [place] Comment: [facility] Therapeutic Range: HOSPITAL 5 - 30 mg/dL Specimen Serum Performing Organization Address [facility] Ph one Number [facility] [address] PATHOLOGY AND GENOMIC MEDICINE [address] * ECG 12 lead (05/27/2019 2:40 PM CDT) Only the most recent of 2 results within the time period is included. Ventricular 74 [facility] rate Atrial rate 74 [facility] NE interval 144 [facility] QRSD interval 72 [facility] QT interval 392 [facility] QTC interval 435 [facility] P axis 1 67 [facility] QRS axis 1 54 [facility] T wave axis 48 [facility] EKG impression Normal sinus rhythm-Poor R [facility] wave progression-Cannot rule out Anterior infarct (cited on or before 27-APR-2019)-Abnormal ECG-In automated comparison with ECG of 27-APR-2019 14:51,-No significant change was found- Specimen Narrative Performed At This result has an attachment that is n ot available. Performing Organization Address City/[facility] Ph one Number [facility] MUSE [address] [place] [address] * ECG ED Preliminary Interpretation - Not an Order (05/27/2019 2:09 PM CDT) Only the most recent of 2 results within the time period is included. 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 More or less stringent targets may be appropriate for individual patients. <7.5% Target for Children and adolescents with type 1 diabetes. Specimen Blood Performing Organization Address City/State/[facility] Ph one Number [facility] DEPARTMENT OF [address] [place] [address] PATHOLOGY AND GENOMIC MEDICINE [address] * Lipid panel (04/28/2019 4:00 AM CDT) Cholesterol 142 <200 mg/dL [facility] Triglycerides 110 <150 mg/dL [facility] HDL cholesterol 61 >40 mg/dL [facility] LDL cholesterol 68Comment: Result obtained by <100 mg/dL [place] direct LDL measurement [facility] Lipid panel SeeBelow [place] interpretation Comment: [facility] Total Cholesterol (mg/dL) [facility] <200 Desirable 200-239 Borderline-high >=240 High Triglycerides (mg/dL) <150 Normal 150-199 Borderline-high 200-499 High >=500 Very high HDL Cholesterol (mg/dL) <40 Low (male) <40 Low (female) LDL Cholesterol (mg/dL) <100 Optimal 100-129 Near or above optimal 130-159 Borderline-high 160-189 High >=190 Very high Risk Catergories that modify LDL goals. Risk Catergories LDL goal (mg/dL) CHD and CHD risk equivalent <100 (10-year risk >20%) Multiple (2+) risk factors <130 (10-year risk =<20%) 0-1 risk factors <160 (<10-year risk) Defining levels of lipids in metabolic syndrome Triglycerides >=150 mg/dL HDL Cholesterol Men <40 mg/dL Women <40 mg/dL Non-HDL cholesterol is a second target for therapy in persons with high triglycerides (>=200 mg/dL) Specimen Plasma specimen Performing Organization Address City/State/Zipcode Ph one Number [facility] DEPARTMENT OF [address] [place] [address] PATHOLOGY AND GENOMIC MEDICINE [place] [facility] [address] [place] [address] HOSPITAL after 12/29/2018 Insurance Type Payer Benefit Subscriber ID Effective Phone Address Plan / Dates Group PPO MULTIPLAN MULTIPLAN xxxxxxxxx [id number] [facility] PPO resent Advance Directives For more information, please contact: [phone] 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 Type Date Recorded Advance Directives, 06/20/2019 9:35 PM Living Will and Medical Power of Waste [employer] Batting Waste [employer]pper Advance Directives, 05/13/2018 5:15 PM Living Will and Medical Power of Waste [employer]ting Waste Chopper Advance Directives, 06/20/2019 9:37 PM Living Will and Medical Power of Waste [employer]ting Waste Chopper Advance Directives, 06/20/2019 9:39 PM Living Will and Medical Power of Waste And Batting Waste Chopper Date Inactivated Comments Code Status Date Activated 12/11/2016 1:21 AM Full Code 12/10/2016 7:35 PM Code Status decision reached by: Patient 12/04/2016 12:16 PM Full Code 11/04/2016 5:53 PM Code Status decision reached by: Patient 11/04/2016 5:53 PM Full Code 11/04/2016 5:53 PM Code Status decision reached by: Patient 11/04/2016 5:53 PM Full Code 10/28/2016 8:43 AM Code Status decision reached by: Patient
--- OUTSIDE RECORDS SUMMARY | 2019-12-30 20:46 | XMS REPORT | Clinical Summary ---
Author Author KEVIN [facility] Address Unknown Phone Unavailable Care Team Providers Care Recovery Auditor Name Role Phone Ramone Bang PCP Allergies Comments Active Allergy Reactions Severity Noted Date Hydromorphone (Bulk) Itching High 7 Dystonia Haloperidol 12/22/2015 Ketorolac Tromethamine Rash Low 017 Nsaids (Non-Steroidal Anaphylaxis High 12/08/19 17 Anti-Inflammatory Drug) Ondansetron Rash Low 12/31/2017 Penicillins Anaphylaxis, High 05/31/2013 Rash No latex allergy Phenazopyridine Rash, Hives, High 01/25/2011 Anaphylaxis Ketorolac Rash, Low 05/31/2013 Swelling Tramadol Hives 12/22/2015 Medications End Date Status Medication Sig Dispensed Refills Start Date Active norgestimate-ethinyl Take 1 tablet 0 estradiol 0.18/0.215/0.25 by mouth. 4 mg-35 mcg (28) per tablet Active diazePAM (VALIUM) 5 MG Take 1 tablet 12 tablet 0 0 tablet (5 mg total) 0 by mouth every night as needed (muscle spasm) for up to 12 doses. Max Daily Amount: 5 mg Active fluconazole (DIFLUCAN) Take 1 tab PO 3 tablet 0 0 150 MG tablet q 72 hours 0 for 3 doses. 01/04/2020 Active acetaminophen-codeine Take 1-2 15 tablet 0 12/03 (TYLENOL #3) 300-30 mg tablets by 0 per tablet mouth every 6 (six) hours as needed for Pain for up to 10 days. Max Daily Amount: 8 tablets 12/30/2019 Active nitrofurantoin, Take 1 10 capsule 0 macrocrystal-monohydrate, capsule (100 0 (MACROBID) 100 MG capsule mg total) by mouth 2 (two) times daily for 5 days. 06/22/2019 Discontinued diazepam (VALIUM) 10 MG Take 10 mg by 0 tablet mouth every 6 (six) hours as needed. 06/22/2019 Discontinued ARIPiprazole (ABILIFY) 5 Take 10 mg by 0 MG tablet mouth daily . 06/22/2019 Discontinued citalopram (CELEXA) 20 MG Take 20 mg by 0 tablet mouth daily. 06/22/2019 Discontinued zolpidem (AMBIEN) 10 mg Take 10 mg by 0 tablet mouth every night as needed . 02/20/2019 ARIPiprazole (ABILIFY) 10 Take 1 tablet 30 tablet 0 MG tablet (10 mg total) 9 by mouth daily for 30 days. 06/22/2019 Discontinued citalopram (CELEXA) 20 MG Take 1 tablet 30 tablet 0 tablet (20 mg total) 9 by mouth daily. 01/31/2019 diazePAM (VALIUM) 10 MG Take 1 tablet 10 tablet 0 tablet (10 mg total) 9 by mouth every 6 (six) hours as needed for Anxiety for up to 10 days. Max Daily Amount: 40 mg 05/01/2019 doxycycline (VIBRAMYCIN) Take 1 28 capsule 0 0 100 MG capsule capsule (100 9 mg total) by mouth 2 (two) times daily for 14 days. 05/01/2019 metroNIDAZOLE (FLAGYL) Take 1 tablet 28 tablet 0 0 500 MG tablet (500 mg 9 total) by mouth 2 (two) times daily for 14 days. 06/23/2019 acetaminophen-codeine Take 1-2 0 06/20/20 1 (TYLENOL #3) 300-30 mg tablets by 9 per tablet mouth. 07/28/2019 Discontinued gabapentin (NEURONTIN) Take 400 mg 0 01 400 MG capsule by mouth. 6 07/28/2019 Discontinued citalopram (CELEXA) 20 MG Take 20 mg by 0 06/05 tablet mouth. 8 08/07/2019 HYDROcodone-acetaminophen Take 1-2 20 tablet 0 (NORCO 5-325) 5-325 mg tablets by 9 per tablet mouth every 6 (six) hours as needed for Pain for up to 10 days. Max Daily Amount: 8 tablets 08/24/2019 ciprofloxacin HCl (CIPRO) Take 1 tablet 14 tablet 0 500 MG tablet (500 mg 0 total) by mouth 2 (two) times daily for 7 days. 08/27/2019 metroNIDAZOLE (FLAGYL) Take 1 tablet 30 tablet 0 0 500 MG tablet (500 mg 0 total) by mouth 3 (three) times daily for 10 days. 11/16/2019 acetaminophen-codeine Take 1-2 15 tablet 0 (TYLENOL #3) 300-30 mg tablets by 0 per tablet mouth every 6 (six) hours as needed for Pain for up to 10 days. Max Daily Amount: 8 tablets 11/13/2019 promethazine (PHENERGAN) Take 1 tablet 30 tablet 0 25 MG tablet (25 mg total) 0 by mouth every 6 (six) hours as needed for Nausea for up to 7 days. Active Problems Problem Noted Date Cellulitis of right leg 03/18/2018 Osteomyelitis Overview: finger, Hyperthyroidism Fibroid, uterine Depression Anxiety Encounters Care Team Description Date Type Specialty Nathaly Downs MD Acute cystitis without hematuria (Primar y Dx); Suprapubic abdominal pain 12/25/2019 Emergency Emergency Medicine 12/25/2019 Travel Nathaly Downs MD Nausea and vomiting in adult patient (Pr imary Dx); Vaginal discharge; Generalized abdominal pain 11/06/2019 Emergency Emergency Medicine 11/06/2019 Travel Daron Rosenbaum MD Lower abdominal pain (Primary Dx); Non-intractable vomiting with nausea, unspecified vomiting type; Dysfunctional uterine bleeding 09/24/2019 Emergency Emergency Medicine Daron Rosenbaum MD Enteritis (Primary Dx); Lower abdominal pain; Non-intractable vomiting with nausea, unspecified vomiting type 08/17/2019 Emergency Emergency Medicine Delmer Johnson MD Right ovarian cyst (Primary Dx); Lower abdominal pain 08/02/2019 Emergency Emergency Medicine - 08/03/2019 Luca Urena MD Right lower quadrant abdominal pain (Kati nathaly Dx) 07/28/2019 Emergency Emergency Medicine Tamir Tolentino MD 06/22/2019 Emergency Emergency Medicine Delmer Johnson MD Pelvic pain (Primary Dx); BV (bacterial vaginosis); Elevated blood pressure reading 04/16/2019 Emergency Emergency Medicine - 04/17/2019 04/16/2019 Travel Katty Tovar MD Lower abdominal pain (Primary Dx) 04/15/2019 Emergency Emergency Medicine 04/15/2019 Travel 01/21/2019 Travel Karla Chirinos MD Medication overdose, intentional self-lynne rm, initial encounter (HCC) (Primary Dx); Suicidal ideation; History of bipolar disorder 01/20/2019 Emergency Emergency Medicine - 01/21/2019 01/20/2019 Orders Only General Internal Me dicine 01/20/2019 Travel after 12/29/2018 Family History Medical History Relation Name Comments Diabetes Maternal Grandfather Hypertension Maternal Grandfather Hypertension Mother Kidney disease Mother Relation Name Status Comments Maternal Grandfather Mother Social History Date Tobacco Use Types Packs/Day Years Used Current Every Day Smoker Cigarettes 0.5 Smokeless Tobacco: Never Used Tobacco Cessation: Counseling Given: No Alcohol Use Drinks/Week oz/Week Comments No Sex Assigned at Date Recorded Not on file Industry Job Start Date Occupation Not on file Not on file Not on file Travel End Travel History Travel Start No recent travel history available. Last Filed Vital Signs Time Taken Vital Sign Reading 12/25/2019 6:06 AM CDT Blood Pressure 112/61 12/25/2019 6:06 AM CDT Pulse 92 12/25/2019 6:06 AM CDT Temperature 36.8 C (98.3 F) 12/25/2019 6:06 AM CDT Respiratory Rate 16 12/25/2019 6:06 AM CDT Oxygen Saturation 98% - Inhaled Oxygen - Concentration 12/25/2019 1:53 AM CDT Weight 68 kg (150 lb) 12/25/2019 1:53 AM CDT Height 165.1 cm (5' 5") 12/25/2019 1:53 AM CDT Body Mass Index 24.96 Plan of Treatment Not on file Procedures Comments Procedure Name Priority Date/Time Associated Diag nosis CT ABDOMEN/PELVIS WITHOUT STAT 12/25/2019 IV CONTRAST 4:54 AM CDT URINALYSIS W/ MICROSCOPIC STAT 12/25/2019 2:13 AM CDT SCREEN, URINE STAT 12/25/2019 2:13 AM CDT LIPASE STAT 12/25/2019 2:13 AM CDT HEPATIC FUNCTION PANEL STAT 12/25/2019 2:13 AM CDT BASIC METABOLIC PANEL (7) STAT 12/25/2019 2:13 AM CDT URINE CULTURE Routine 12/25/2019 2:13 AM CDT CBC W/PLT COUNT & AUTO STAT 12/25/2019 DIFFERENTIAL 2:10 AM CDT LACTIC ACID, VENOUS STAT 12/25/2019 2:10 AM CDT CBC W/PLT COUNT & AUTO STAT 12/25/2019 DIFFERENTIAL 2:[address] ABDOMEN/PELVIS WITH IV STAT 11/06/2019 CONTRAST 3:59 PM CDT URINALYSIS W/ MICROSCOPIC STAT 11/06/2019 3:11 PM CDT SCREEN, URINE STAT 11/06/2019 3:11 PM CDT HIV-1 ANTIGEN WITH STAT 11/06/2019 HIV-1/2 ANTIBODY 1:58 PM CDT HEPATIC FUNCTION PANEL STAT 11/06/2019 1:47 PM CDT BASIC METABOLIC PANEL (7) STAT 11/06/2019 1:47 PM CDT LACTIC ACID, VENOUS STAT 11/06/2019 1:47 PM CDT LIPASE STAT 11/06/2019 1:47 PM CDT STD PANEL - CT/GC RNA STAT 11/06/2019 1:47 PM CDT WET PREP STAT 11/06/2019 1:47 PM CDT CBC W/PLT COUNT & AUTO STAT 11/06/2019 DIFFERENTIAL 1:19 PM CDT CBC W/PLT COUNT & AUTO STAT 11/06/2019 DIFFERENTIAL 1:19 PM CDT PERMANENT LAB REPORT - 09/29/2019 SCAN 3:33 PM INSPECTOR AIDE US PELVIS WITH ENDOVAG STAT 09/24/2019 WITH DOPPLER 12:15 PM INSPECTOR AIDE URINALYSIS W/ REFLEX STAT 09/24/2019 URINE CULTURE 9:56 AM INSPECTOR AIDE SCREEN, URINE STAT 09/24/2019 9:[address] ABDOMEN/PELVIS WITH IV STAT 08/17/2019 CONTRAST 12:56 PM INSPECTOR AIDE SCREEN, URINE STAT 08/17/2019 12:33 PM INSPECTOR AIDE CBC W/PLT COUNT & AUTO STAT 08/17/2019 DIFFERENTIAL 11:37 AM INSPECTOR AIDE LIPASE STAT 08/17/2019 11:37 AM INSPECTOR AIDE HEPATIC FUNCTION PANEL STAT 08/17/2019 11:37 AM INSPECTOR AIDE LACTIC ACID, VENOUS STAT 08/17/2019 11:37 AM INSPECTOR AIDE BASIC METABOLIC PANEL (7) STAT 08/17/2019 11:37 AM INSPECTOR AIDE CBC W/PLT COUNT & AUTO STAT 08/17/2019 DIFFERENTIAL 11:37 AM INSPECTOR AIDE US PELVIS WITH ENDOVAG STAT 08/03/2019 WITH DOPPLER 1:[address] ABDOMEN/PELVIS WITH IV STAT 08/02/2019 CONTRAST 11:01 PM INSPECTOR AIDE LIPASE STAT 08/02/2019 10:21 PM INSPECTOR AIDE COMPREHENSIVE METABOLIC STAT 08/02/2019 PANEL 10:21 PM INSPECTOR AIDE CBC W/PLT COUNT & AUTO STAT 08/02/2019 DIFFERENTIAL 9:07 PM INSPECTOR AIDE CBC W/PLT COUNT & AUTO STAT 08/02/2019 DIFFERENTIAL 9:07 PM INSPECTOR AIDE URINALYSIS W/ MICROSCOPIC STAT 08/02/2019 9:00 PM INSPECTOR AIDE SCREEN, URINE STAT 08/02/2019 9:00 PM INSPECTOR AIDE (MANUAL DIFFERENTIAL) STAT 07/28/2019 7:09 PM INSPECTOR AIDE CBC W/PLT COUNT & AUTO STAT 07/28/2019 DIFFERENTIAL 7:09 PM INSPECTOR AIDE URINALYSIS W/ MICROSCOPIC STAT 07/28/2019 7:09 PM INSPECTOR AIDE SCREEN, URINE STAT 07/28/2019 7:09 PM INSPECTOR AIDE CBC W/PLT COUNT & AUTO STAT 07/28/2019 DIFFERENTIAL 7:09 PM INSPECTOR AIDE LIPASE STAT 07/28/2019 7:09 PM INSPECTOR AIDE COMPREHENSIVE METABOLIC STAT 07/28/2019 PANEL 7:09 PM INSPECTOR AIDE US PELVIS WITH ENDOVAG STAT 04/17/2019 WITH DOPPLER 2:35 AM CDT SCREEN, URINE STAT 04/17/2019 1:12 AM CDT URINALYSIS W/ MICROSCOPIC STAT 04/17/2019 1:12 AM CDT WET PREP STAT 04/17/2019 1:00 AM CDT STD PANEL - CT/GC RNA STAT 04/17/2019 1:00 AM CDT CBC W/PLT COUNT & AUTO STAT 04/16/2019 DIFFERENTIAL 11:19 PM CDT LIPASE STAT 04/16/2019 11:19 PM CDT COMPREHENSIVE METABOLIC STAT 04/16/2019 PANEL 11:19 PM CDT CBC W/PLT COUNT & AUTO STAT 04/16/2019 DIFFERENTIAL 11:19 PM CDT CBC W/PLT COUNT & AUTO STAT 04/15/2019 DIFFERENTIAL 4:30 PM CDT BLOOD GAS, VENOUS STAT 04/15/2019 4:30 PM CDT HEPATIC FUNCTION PANEL STAT 04/15/2019 4:30 PM CDT LACTIC ACID, VENOUS STAT 04/15/2019 4:30 PM CDT BASIC METABOLIC PANEL (7) STAT 04/15/2019 4:30 PM CDT LIPASE STAT 04/15/2019 4:30 PM CDT CBC W/PLT COUNT & AUTO STAT 04/15/2019 DIFFERENTIAL 4:30 PM CDT URINALYSIS W/ MICROSCOPIC STAT 04/15/2019 4:02 PM CDT SCREEN, URINE STAT 04/15/2019 4:02 PM CDT REPORT OF PROCEDURE - 01/22/2019 ENDOSCOPY SCAN 5:37 PM CDT URINALYSIS W/ REFLEX STAT 01/20/2019 URINE CULTURE 11:34 PM CDT CBC W/PLT COUNT & AUTO STAT 01/20/2019 DIFFERENTIAL 1:02 PM CDT ACETAMINOPHEN LEVEL STAT 01/20/2019 1:02 PM CDT RAPID DRUG SCREEN, URINE STAT 01/20/2019 1:02 PM CDT ETHANOL STAT 01/20/2019 1:02 PM CDT CREATINE KINASE (CK) STAT 01/20/2019 1:02 PM CDT SALICYLATE LEVEL STAT 01/20/2019 1:02 PM CDT BASIC METABOLIC PANEL (7) STAT 01/20/2019 1:02 PM CDT CBC W/PLT COUNT & AUTO STAT 01/20/2019 DIFFERENTIAL 1:02 PM CDT ECG 12-LEAD Routine 01/20/2019 11:56 AM CDT ECG 12-LEAD Routine 01/20/2019 11:56 AM CDT Procedure Note - Interface, External Ris In - 01/20/2019 7:20 PM CDT Ventricula r Rate 74 BPM Atrial Rate 74 BPM P-R Interval 156 ms QRS Duration 84 ms Q-T Interval 410 ms QTC Calculatio n(Bazett) 455 ms P Henderson 74 degrees R Henderson 62 degrees T Henderson 52 degrees Normal sinus rhythm Normal ECG When compared with ECG of 1 12:35, No significan t change was found ED ECG INTERPRETATION Routine 01/20/2019 11:46 AM CDT after 12/29/2018 Results * CT abdomen pelvis without contrast (12/25/2019 4:54 AM CDT) Specimen Narrative Performed At FINAL REPORT eigital CLINICAL HISTORY: Acute abdominal pain FINDINGS: Multiple axial images of the abdomen an d pelvis were performed without intravenous contrast. Oral cont rast was not given. This exam was performed according to r departmental dose-optimization program, which includ es automated exposure control, adjustment of the mA and/or kV accordin g to patient size and/or use of the iterative reconstruction techniq ue. Comparison: 11/06/2019 Lower chest: Clear lungs. No pleural ef fusion or pneumothorax. Visualized cardiac contours normal. Liver: No significant findings. Gallbladder and biliary tree: No signif icant findings. Spleen: No significant findings. Adrenal Glands: No significant findings . Kidneys and ureters: No significant fin dings. Stomach and Duodenum: No significant fi ndings. Pancreas: No significant findings. Bowel: No significant findings. Appendix: Normal. Bladder: No significant findings. Major vascular structures: No significa nt findings. Reproductive organs: No significant fin dings. Other: No free air, fluid or adenopathy Skeleton: No acute bony abnormality. IMPRESSION: No acute abnormality. Signed: Gilles Pichardo MD Report Verified Date/Time: 0 05:16:07 Procedure Note Interface, External Ris In - 12/25/2019 5:19 AM CDT FINAL REPORT CLINICAL HISTORY: Acute abdominal pain FINDINGS: Multiple axial images of the abdomen and pelvis were performed without intravenous contrast. Oral contrast was not given. This exam was performed according to our departmental dose-optimization program, which includes automated exposure control, adjustment of the mA and/or kV according to patient size and/or use of the iterative reconstruction technique. Comparison: 11/06/2019 Lower chest: Clear lungs. No pleural effusion or pneumothorax. Visualized cardiac contours normal. Liver: No significant findings. Gallbladder and biliary tree: No significant findings. Spleen: No significant findings. Adrenal Glands: No significant findings. Kidneys and ureters: No significant findings. Stomach and Duodenum: No significant findings. Pancreas: No significant findings. Bowel: No significant findings. Appendix: Normal. Bladder: No significant findings. Major vascular structures: No significant findings. Reproductive organs: No significant findings. Other: No free air, fluid or adenopathy Skeleton: No acute bony abnormality. IMPRESSION: No acute abnormality. Signed: Gilles Pichardo MD Report Verified Date/Time: 12/25/2019 05:16:07 Performing Organization Address City/State/Zipcode Ph one Number GE [facility] * screen, urine (12/25/2019 2:13 AM CDT) Only the most recent of 8 results within the time period is included. Preg Test, Ur Negative [facility] Specimen Urine Performing Organization Address [facility] Ph one Number [facility] [place], [place] [address] * Urinalysis w/Microscopic (12/25/2019 2:13 AM CDT) Only the most recent of 6 results within the time period is included. Color, UA Yellow [facility] Clarity, UA Slightly Cloudy [facility] Specific Anderson, UA 1.025 1.001 - 1.035 [facility] pH, UA 6.0 5.0 - 8.0 [facility] Protein, UA Negative Negative [facility] Glucose, UA Negative Negative [facility] Ketones, UA Negative Negative [facility] Bilirubin, UA Negative Negative [facility] Blood, UA Negative Negative [facility] Nitrite, UA Negative Negative [facility] Leukocytes, UA Trace (A) Negative [facility] Urobilinogen, UA 0.2 0.2 - 1.0 mg/dL [facility] Bacteria, UA Moderate [facility] RBC, UA <5 /HPF [facility] WBC, UA 5-10 /HPF [facility] SQUAMOUS EPITHELIAL 10-20 /HPF [facility] Specimen Source [facility] Specimen Urine Performing Organization Address [facility] one [facility] [address] [place] [id number] * Urine culture (12/25/2019 2:13 AM CDT) Result 10-19,000 col/mL skin vane [facility] Specimen Urine Performing Organization Address [facility] one [address] [address] * Lipase (12/25/2019 2:13 AM CDT) Only the most recent of 7 results within the time period is included. Lipase 20 6 - 51 U/L [facility] Specimen Blood Narrative Performed At Digital Performance Analyst ID - [facility] Performing Organization Address [facility] one [address] [address] * Liver Panel (12/25/2019 2:13 AM CDT) Only the most recent of 4 results within the time period is included. Protein, Total 7.8 6.0 - 8.5 gm/dL [facility] Albumin 4.4 3.5 - 5.0 g/dL [facility] Total Bilirubin 0.2 0.1 - 1.2 mg/dL [facility] Bilirubin, Direct <0.1 0.0 - 0.4 mg/dL [facility] Alkaline Phosphatase 40 30 - 115 U/L [facility] AST 15 5 - 40 U/L [facility] ALT 10 5 - 50 U/L [facility] Specimen Blood Narrative Performed At Digital Performance Analyst ID - [facility] Performing Organization Address [facility] one [address] [id number] * Basic metabolic panel (Na, K+, Cl, CO2, Glu, Ca, BUN, Cr) (12/25/2019 2:13 AM CDT) Only the most recent of 5 results within the time period is included. Sodium 139 135 - 148 meq/L [facility] Potassium 3.4 (L) 3.6 - 5.5 meq/L [facility] Chloride 106 98 - 106 meq/L [facility] CO2 24 20 - 29 meq/L [facility] BUN 9 (L) 10 - 26 mg/dL [facility] Creatinine 0.82 0.50 - 1.20 mg/dL [facility] Glucose 69 (L) 70 - 110 mg/dL [facility] Calcium 9.7 8.5 - 10.5 mg/dL [facility] EGFR 96Comment: ESTIMATED GFR IS mL/min/1.73 sq m [facility] NOT ACCURATE [facility] CLEARANCE IN PREDICTING GLOMERULAR FILTRATION RATE. ESTIMATED GFR IS NOT APPLICABLE FOR DIALYSIS PATIENTS. Specimen Blood Narrative Performed At Digital Performance Analyst ID - RESOR[facility] Performing Organization Address City/State/Zipcode Ph one Number [facility] [address] [place], [place] [phone] * CBC with platelet count + automated diff (12/25/2019 2:10 AM CDT) Only the most recent of 8 results within the time period is included. WBC 4.6 4.0 - 10.0 K/L [facility] RBC 4.09 4.00 - 5.00 M/L [facility] Hemoglobin 13.1 12.0 - 15.5 GM/DL [facility] Hematocrit 38.7 36.0 - 46.0 % [facility] MCV 94.6 82.0 - 99.0 fL [facility] MCH 32.0 27.0 - 33.0 pg [facility] MCHC 33.9 32.0 - 36.0 GM/DL [facility] RDW 12.9 12.0 - 15.0 % [facility] Platelets 262 150 - 430 K/CU MM [facility] MPV 11.1 6.0 - 11.5 fL [facility] nRBC 0 0 - 0 /100 WBC [facility] % Neutros 45 % [facility] % Lymphs 42 % [facility] % Monos 8 % [facility] % Eos 4 % [facility] % Baso 1 % [facility] # Neutros 2.07 1.80 - 8.00 K/L [facility] # Lymphs 1.96 1.48 - 4.50 K/L [facility] # Monos 0.36 0.00 - 1.30 K/L [facility] # Eos 0.20 0.00 - 0.50 K/L [facility] # Baso 0.05 0.00 - 0.20 K/L [facility] Immature 0 0 - 0 % [facility] Specimen Blood Performing Organization Address [facility] one Number [facility] [address] [place] [address] * Lactic acid, venous (12/25/2019 2:10 AM CDT) Only the most recent of 4 results within the time period is included. Lactate, Venous 0.41 (L) 0.50 - 2.00 mmol/L [facility] Specimen Blood Narrative Performed At Digital Performance Analyst ID - [facility] [employer] [facility] Performing Organization Address [facility] one Number [facility] [address] [place] [address] * CT abdomen pelvis with IV contrast (11/06/2019 3:59 PM CDT) Only the most recent of 3 results within the time period is included. Specimen Narrative Performed At FINAL REPORT [facility] TECHNIQUE: CT of the abdomen and pelvis WITH intravenous contrast and WITHOUT oral contrast. Dose modulation, iterative reconstruction, and/or weight-based adjustment of the m A/kV was utilized to reduce the radiation dose to as low as reasona fernando achievable. INDICATION: ABDOMINAL PAIN NAUSEA EMESIS abdominal pain. COMPARISON: CT from 08/17/2019. FINDINGS: LOWER THORAX: Unremarkable. HEPATOBILIARY: No focal hepatic lesions . Gallbladder is unremarkable. No biliary ductal dilatation. SPLEEN: No splenomegaly. PANCREAS: No focal masses or ductal dil atation. ADRENALS: No adrenal nodules. KIDNEYS/URETERS: No hydronephrosis, sto rosas, or masses. PELVIC ORGANS/BLADDER: A right ovarian peripherally enhancing structure measures 1.6 cm and is consis tent with a corpus sodium. No routine follow-up imaging is recommende d. PERITONEUM/RETROPERITONEUM: Trace free fluid in the pelvis. No free air. LYMPH NODES: No lymphadenopathy. VESSELS: Unremarkable. GI TRACT: No distention or wall thicken ing. There is a linear hyperdense structure in the colon which is best seen on sagittal image 76. The appendix is normal. BONES AND SOFT TISSUES: Unremarkable. IMPRESSION: 1.No explanation on this CT for the abd ominal pain, nausea, and emesis. 2.There is a linear hyperdense structur e in the colon. This could be a chicken bone. There are no signs of p erforation. Signed: Zhagn Garrett MD Report Verified Date/Time: 0 16:13:27 Reading Location: [facility] C013Y CT Body Reading Room Procedure Note Interface, External Ris In - 11/06/2019 4:16 PM CDT FINAL REPORT TECHNIQUE: CT of the abdomen and pelvis WITH intravenous contrast and WITHOUT oral contrast. Dose modulation, iterative reconstruction, and/or weight-based adjustment of the mA/kV was utilized to reduce the radiation dose to as low as reasonably achievable. INDICATION: ABDOMINAL PAIN NAUSEA EMESIS abdominal pain. COMPARISON: CT from 08/17/2019. FINDINGS: LOWER THORAX: Unremarkable. HEPATOBILIARY: No focal hepatic lesions. Gallbladder is unremarkable. No biliary ductal dilatation. SPLEEN: No splenomegaly. PANCREAS: No focal masses or ductal dilatation. ADRENALS: No adrenal nodules. KIDNEYS/URETERS: No hydronephrosis, stones, or masses. PELVIC ORGANS/BLADDER: A right ovarian peripherally enhancing structure measures 1.6 cm and is consistent with a corpus sodium. No routine follow-up imaging is recommended. PERITONEUM/RETROPERITONEUM: Trace free fluid in the pelvis. No free air. LYMPH NODES: No lymphadenopathy. VESSELS: Unremarkable. GI TRACT: No distention or wall thickening. There is a linear hyperdense structure in the colon which is best seen on sagittal image 76. The appendix is normal. BONES AND SOFT TISSUES: Unremarkable. IMPRESSION: 1.No explanation on this CT for the abdo jose a pain, nausea, and emesis. 2.There is a linear hyperdense structure in the colon. This could be a chicken bone. There are no signs of perforation. Signed: Zhang Garrett MD Report Verified Date/Time: 11/06/2019 16:13:27 Reading Location: [facility] C013Y CT Body Reading Room Performing Organization Address City/[facility] Ph one Number [facility] * HIV-1 Antigen with HIV-1/2 Antibody (11/06/2019 1:58 PM CDT) HIV-1 Antigen with HIV Nonreactive Nonreactive [facility] Specimen Blood Narrative Performed At Digital Performance Analyst ID - [id number] [facility] Performing Organization Address [facility] one Number [facility] [address] [place] [address] * STD Panel - CT/GC RNA (11/06/2019 1:47 PM CDT) Only the most recent of 2 results within the time period is included. C. trachomatis RNA, TMA NOT DETECTED [facility] N. gonorrhoeae RNA, TMA NOT DETECTED [facility] Comment: INCORPORATED REFERENCE RANGE:NOT DETECTED Methodology: Cutter Down Mediated Amplification (TMA) to detect RNA. The analytical performance characteristics of this assay, when used to test SurePath(TM) specimens have been determined by [facility]. The modifications have not been cleared or approved by the FDA. This assay has been validated pursuant to the CLIA regulations and is used for clinical purposes. For additional information, please refer to https://education.Timetric/faq/RXR318 (This link is being provided for informational/ educational purposes only.) Specimen Vaginal Swab Narrative Performed At Performing Lab [facility] [employer] [facility]. [address] [place] [address] Ash Peres MD Performing Organization Address City/[facility] Ph one Number [facility], [address], [place] [facility] [address] * Wet prep, genital (11/06/2019 1:47 PM CDT) Only the most recent of 2 results within the time period is included. WBC - wet prep Few white blood cells seen [facility] Clue cells - wet prep No clue cells seen [facility] Yeast - wet prep No budding yeast seen [facility] Trichomonas - wet prep No Trichomonas seen [facility] Bacteria - wet prep Moderate bacteria seen [facility] Specimen Genital Performing Organization Address City/State/Zipcode Ph one Number [facility] [address] [place] [address] * PERMANENT LAB REPORT - SCAN (09/29/2019 3:33 PM INSPECTOR AIDE) Narrative Performed At This result has an attachment that is n ot available. * US pelvis with endovag with doppler (09/24/2019 12:15 PM INSPECTOR AIDE) Only the most recent of 3 results within the time period is included. Specimen Narrative Performed At FINAL REPORT [facility] PELVIC ULTRASOUND, WITH ENDOVAGINAL OFE DY AND DOPPLER History provided: Abdominal pain, vagin al bleeding Transabdominal study supplemented with endovaginal exam. Grayscale, color Doppler, and spectral wave form analysis were performed. Uterus normal in size, measuring 7.4 cm from fundus to cervix, 4.2 cm in anterior-posterior dimension, and 4. 3 cm in transverse dimension. Endometrial stripe measures 7 mm. Ovaries are normal in size. 1.5 cm righ t ovarian cyst. No adnexal mass. No free pelvic fluid. IMPRESSION: Small right ovarian cyst. Otherwise unr emarkable study. Signed: Ethel Harrington MD Report Verified Date/Time: 0 12:25:17 Reading Location: [facility] Radiology Readi Room Procedure Note Interface, External Ris In - 09/24/2019 12:27 PM INSPECTOR AIDE FINAL REPORT PELVIC ULTRASOUND, WITH ENDOVAGINAL STUDY AND DOPPLER History provided: Abdominal pain, vaginal bleeding Transabdominal study supplemented with endovaginal exam. Grayscale, color Doppler, and spectral wave form analysis were performed. Uterus normal in size, measuring 7.4 cm from fundus to cervix, 4.2 cm in anterior-posterior dimension, and 4.3 cm in transverse dimension. Endometrial stripe measures 7 mm. Ovaries are normal in size. 1.5 cm right ovarian cyst. No adnexal mass. No free pelvic fluid. IMPRESSION: Small right ovarian cyst. Otherwise unremarkable study. Signed: Ethel Harrington MD Report Verified Date/Time: 09/24/2019 12:25:17 Reading Location: [facility] Radiology Reading Room Performing Organization Address City/[facility] Ph one Number [facility] * Urinalysis w/Microscopic + Reflex to Culture (09/24/2019 9:56 AM INSPECTOR AIDE) Only the most recent of 2 results within the time period is included. Color, UA Yellow [facility] Clarity, UA Clear [facility] Specific Anderson, UA 1.010 1.001 - 1.035 [facility] pH, UA 6.0 5.0 - 8.0 [facility] Protein, UA Negative Negative [facility] Glucose, UA Negative Negative [facility] Ketones, UA Negative Negative [facility] Bilirubin, UA Negative Negative [facility] Blood, UA Moderate (A) Negative [facility] Nitrite, UA Negative Negative [facility] Leukocytes, UA Negative Negative [facility] Urobilinogen, UA 0.2 0.2 - 1.0 mg/dL [facility] Bacteria, UA Few [facility] RBC, UA <5 /HPF [facility] WBC, UA <5 /HPF [facility] SQUAMOUS EPITHELIAL <5 /HPF [facility] Specimen Source [facility] Specimen Urine Performing Organization Address [facility] Ph one Number [facility] [address] [place], [place] [id number] * Comprehensive metabolic panel (08/02/2019 10:21 PM INSPECTOR AIDE) Only the most recent of 3 results within the time period is included. Protein, Total 7.3 6.0 - 8.5 gm/dL [facility] Albumin 4.0 3.5 - 5.0 g/dL [facility] Alkaline Phosphatase 51 30 - 115 U/L [facility] Total Bilirubin <0.2 0.1 - 1.2 mg/dL [facility] Sodium 137 135 - 148 meq/L [facility] Potassium 4.0 3.6 - 5.5 meq/L [facility] Chloride 106 98 - 106 meq/L [facility] CO2 24 20 - 29 meq/L [facility] BUN 13 10 - 26 mg/dL [facility] Creatinine 0.91 0.50 - 1.20 mg/dL [facility] Glucose 86 70 - 110 mg/dL [facility] Calcium 9.5 8.5 - 10.5 mg/dL [facility] AST 12 5 - 40 U/L [facility] ALT 9 5 - 50 U/L [facility] EGFR 85Comment: ESTIMATED GFR IS mL/min/1.73 sq m [facility] NOT ACCURATE [facility] CLEARANCE IN PREDICTING GLOMERULAR FILTRATION RATE. ESTIMATED GFR IS NOT APPLICABLE FOR DIALYSIS PATIENTS. Specimen Blood Performing Organization Address City/[facility] one Number [facility] [address] [place] [address] * Manual Differential (07/28/2019 7:09 PM INSPECTOR AIDE) Total Counted [facility] WBC Morphology Normal [facility] RBC Morphology Normal [facility] Hypogranular Platelet Present [facility] Specimen Blood Performing Organization Address [facility] Ph one Number [facility] [address] [place] [address] * Blood gas, venous (04/15/2019 4:30 PM CDT) pH, Erasmo 7.37 7.32 - 7.42 [facility] pCO2, Erasmo 46 41 - 51 mm Hg [facility] pO2, Erasmo 38 25 - 40 mm Hg [facility] O2 Sat, Erasmo 69.9 40.0 - 70.0 % [facility] HCO3, Erasmo 26 21 - 29 mmol/L [facility] Base Excess, Erasmo 0.1 -2.0 - 3.0 mmol/L [facility] Patient Temperature 37.0 [facility] FIO2 21 [facility] Specimen Blood Performing Organization Address City/[facility] Ph one [facility] [address] [place], [place] [address] [facility] [place] * EKG-SCANNED (01/22/2019 5:37 PM CDT) Narrative Performed At This result has an attachment that is n ot available. * Rapid drug screen, urine (01/20/2019 1:02 PM CDT) Barbiturate Screen Negative Negative [facility] Benzodiazepine Screen Positive (A) Negative [facility] Cocaine (Metab.) Screen Positive (A) Negative [facility] Methadone Screen Negative Negative [facility] Opiate Screen Negative Negative [facility] Cannabinoid Screen Negative Negative [facility] Amph/Methamph Screen Positive (A) Negative [facility] Phencyclidine Screen Negative Negative [facility] Specimen Urine Narrative Performed At [facility] Cocaine 300 ng/mL [facility] Ixrljdtaxrc82 n g/mL Mhwwyhtvgphkhh034 ng/mL Barbiturate 200 ng/ mL Epemkgyztbmdd01 ng/ mL Opiate3 00 ng/mL Methadone 300 n g/mL Amphetamine/ 1000 ng/mL Methamphetamine This assay provides an unconfirmed qual itative test result for the clinical management of patients in emergency sit uations. Chain of custody not maintained. Some oxhi-kax-bqpgucs medications, as w ell as adulterants, may cause inaccurate results. Clinical correlation should be applied. A more comprehensive drug screen or confirmation of a detected dr mami may be performed upon request. Performing Organization Address City/[facility] Ph one Number [address] [facility] * Creatine Kinase (CK) (01/20/2019 1:02 PM CDT) Total CK 98 29 - 200 U/L [facility] Specimen Blood Performing Organization Address [facility] Ph one Number [address] [facility] * Ethanol (01/20/2019 1:02 PM CDT) Ethanol Lvl <10 <=10 mg/dL [facility] Specimen Blood Performing Organization Address [facility] one Number [address] [facility] * Acetaminophen level (01/20/2019 1:02 PM CDT) Acetaminophen Level <5.7 (L) 10.0 - 30.0 ug/mL [facility] Specimen Blood Narrative Performed At Therapeutic Range: 10.0-30.0 g/mL [facility] Toxic Levels:>200.0 g/mL [facility]TER Performing Organization Address [facility] one Number [place] [address] [facility] * Salicylate level (01/20/2019 1:02 PM CDT) Salicylate Lvl <5.0 (L) 15.0 - 30.0 mg/dL [facility] Specimen Blood Narrative Performed At Therapeutic Range: 15.0-30.0 mg/dL [facility] LT Toxic: >30.0 [facility] [address] mg/dL Lethal:>70.0 mg /dL Performing Organization Address [facility] one Number [place] [address] [facility] * ECG 12 lead (01/20/2019 11:56 AM CDT) Specimen Narrative Performed At Ventricular Rate 74 BPM GE [facility]USE Atrial Rate 74 BPM P-R Interval 156 ms QRS Duration 84 ms Q-T Interval 410 ms QTC Calculation(Bazett) 455 ms P Henderson 74 degrees R Henderson 62 degrees T Henderson 52 degrees Normal sinus rhythm Normal ECG When compared with ECG of 12-MAR-2011 1 2:35, RsR' no longer seen in V2 Confirmed by MD AVIS, JACQUELYN ([id number] ) on 01/21/2019 6:52:41 AM Procedure Note Interface, External Ris In - 01/21/2019 6:52 AM CDT Ventricular Rate 74 BPM Atrial Rate 74 BPM P-R Interval 156 ms QRS Duration 84 ms Q-T Interval 410 ms QTC Calculation(Bazett) 455 ms P Henderson 74 degrees R Henderson 62 degrees T Henderson 52 degrees Normal sinus rhythm Normal ECG When compared with ECG of 12-MAR-2011 12:35, RsR' no longer seen in V2 Confirmed by MD AVIS, JACQUELYN ([id number]) on 01/21/2019 6:52:41 AM Performing Organization Address City/State/Zipcode Ph one Number [facility] * ECG/EKG Interpretation (01/20/2019 11:46 AM CDT) Narrative Performed At Karla Chirinos MD 01/20/20193:3 1 PM ECG/EKG Interpretation Date/Time: 01/20/2019 11:59 AM Performed by: Karla Chirinos MD Authorized by: Karla Chirinos MD The ECG was interpreted by ED physician . The ECG is interpreted as sinus rhythm. Rate is normal rate. Heart rate is [address] segments normal. T waves normal. Axi s is normal. Clinical Impression: normal ECGECG revi ewed and does not meet STEMI criteria. Patient tolerance: Patient to lerated the procedure well with no immediate complications after 12/29/2018 Insurance Payer Benefit Subscriber ID Type Phone Address Plan / Group OTHER-COMMERCIAL GENERIC xxxxxxxxx COMMERCIAL Advance Directives For more information, please contact: [facility] [address] [place] [address] Date Inactivated Comments Code Status Date Activated 03/21/2018 12:35 PM Full Code 03/18/2018 1:21 AM This code status was determined by: Patient
--- OUTSIDE RECORDS SUMMARY | 2019-12-30 20:47 | XMS REPORT ---
Author Author [facility] t Organization [facility] t Address [address] [place] [address] Phone Unavailable Care Team Providers Care Online Communications Specialist Name Role Phone NO, PCP PCP Unavailable JIL SAUCEDO Attphys Unavailable Steve WAGNER Attphys Unavailable MONIK JAIMES Attphys Unavailable Michelle ROBLERO, Gregorio Marion Attphys Denilson Connell DO Attphys Thien ROBLERO, Harrison Attphys HAILEY GUEVARA Attphys Unavailable WILFRID MALCOLM Attphys Unavailable Harsh ROBLERO, Jessie Marlow Attphys [phone] Duane Renae MD, Monica Cevallos Attphys Pastor Goode DO Aatjose Attphys Annabelle ROBLERO, Kristel Pritchett Attphys Yosef ROBLERO, Mariano Lu Attphys Madhu ROBLERO, Corbin Attphys Nuzhat ROBLERO, Fernanda Attphys Ivette Awan MD Attphys Salty ROBLERO, Brian Attphys SAI BLANCAS Attphys Unavailable Yasmine ROBLERO, Conner Pedro Attphys Luca PITT, Dolores Willingham Attphys Unavailable BALA POPE Attphys Unavailable RORO ZEE Attphys Unavailable SHARONA JUSTIN Attphys Unavailable GEORGIE GARCIA Attphys Unavailable RYAN ALFONSO M.D., RYAN Sawant M.D. Attphys Unavailable MILLER LEYVA Attphys Unavailable LIZZY, BRITNI Attphys Unavailable HOSSAIN, AGUIRRE Attphys Unavailable TEODORODARACHELE, HARRISON Admphys Unavailable CATHY, GRISELWILDA DREW Admphys Unavailable RYAN ALFONSO M.D., Savana DAVIS Admphys Unava ilable HOSSAIN, AGUIRRE Admphys Unavailable Payers Payer Name Policy Type Policy Number Effective Date Expiration Date S [facility] [employer] [id number] xxxxxxxxx 2019 00:00:00 [facility] [place] [id number] WOM[facility] HE[facility] [id number], [place] [address] xxxxxxxxx 2018 00:00:00 Antonio Aleman [facility] JAFY-[id number] [id number] [place] [address] xxxxxx 2017 00:00:00 2027 2 3:59:59 [facility] Problems Condition Name Condition Details Condition Category Status Onset Date Resolution Date Last Treatment Date Treating Clinician Comments Source Right arm cellulitis Right arm cellulitis Disease Active 00:00:00 [facility] Schizoaffective disorder Schizoaffective disorder Disease Acti ve 2019-04-28 00:00:[address] Depressive disorder Depressive disorder Disease Active 2018-06-18 00:00 :00 [facility] Psychotic disorder Psychotic disorder Disease Active 2018-06-18 00:00:0 0 [facility] PTSD (post-traumatic stress disorder) PTSD (post-traumatic s tress disorder) Disease Active 2018-06-18 00:00:00 [facility] Marijuana abuse Marijuana abuse Disease Active 2018-06-18 00:00:00 [facility] affected by growth restriction Pregnan cy affected by growth restriction Disease Active 2017-12-04 00:00:00 Deric Amaral Suicidal ideation Suicidal ideation Disease Active 2017-12-04 00:00:00 Deric Amaral Polysubstance abuse Polysubstance abuse Disease Active 2017-12-04 00:00 :00 Deric Amaral Osteomyelitis Osteomyelitis Disease Active 2017-12-04 00:00:00 Deric Amaral Urinary tract infection affecting care of mother, ante Urinary tract infection affecting care of mother, antepartum Disease Active 2017-11-27 00:00:[address] Osteomyelitis of finger of right hand Osteomyelitis of finge r of right hand Disease Active 2016-11-04 00:00:00 Deric Amaral Cellulitis Cellulitis Disease Active 2016-10-28 00:00:00 Deric Amaral Deep postoperative wound infection Deep postoperative wound infe ction Disease Active 2016-10-28 00:00:00 [place] [facility] Osteomyelitis of finger Osteomyelitis of finger Disease Active 2016-10-28 00:00:[address] Bacterial skin infection Bacterial skin infection Disease Acti ve 2016-10-25 00:00:[address] Cellulitis of finger of right hand Cellulitis of finger of right hand Disease Active 2016-10-24 00:00:00 [place] [facility] Adjustment disorder with mixed anxiety and depressed m ood Adjustment disorder with mixed anxiety and depressed mood Disease Active 2015-10-25 00:00:00 [facility] Depression Depression Disease Active 2015-03-26 00:00:00 [facility] Polysubstance abuse Polysubstance abuse Disease Active 2015-03-13 00:00 :00 [facility] Other specified persistent mood disorders Other specif ied persistent mood disorders Disease Active 2015-01-10 [facility] Cocaine-induced mood disorder Cocaine-induced mood disorder Disease Active 2014-07-06 00:00:00 [facility] 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 Active 2014-07-06 00:00:00 [facility] Disorder, Substance Use Disorder, Substance Use Disease Active 2014-07-05 00:00:00 [facility] Depression, major, recurrent, severe with psychosis De pression, major, recurrent, severe with psychosis Disease Active 2012-12-30 00:00:00 [facility] Acute stress disorder Acute stress disorder Disease Active 201 09-07-14 00:00:00 [facility] Pelvic pain in female Pelvic pain in female Disease Active 201 08-10-05 00:00:00 [facility] Problem Condition Active [facility] Drug ingestion Drug ingestion Disease Active [facility] Benzodiazepine abuse Benzodiazepine abuse Disease Active [facility] 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 Disease Active [facility] Cocaine use Cocaine use Disease Active [facility] Substance-induced disorder Substance-induced disorder Disease Active [facility] Chronic pain of right thumb Chronic pain of right thumb Disease Active [facility] Allergies, Adverse Reactions, Alerts Allergy Name Allergy Type Status Severity Reaction(s) Onset Date Inacti ve Date Treating Clinician Comments Source phenazopyridine HCl DA Active U 2019-06-22 00:00:00 [facility] ketorolac tromethamine DA Active U 2019-06-22 00:00:00 [facility] Penicillins DA Active U 2019-06-22 00:00:00 [facility] risperidone DA Active SV 2019-06-22 00:00:00 [facility] ondansetron DA Active U 2019-06-22 00:00:00 [facility] risperidone DA Active SV 2019-05-31 00:00:00 [facility] Risperidone Propensity to adverse reactions to drug Active Other (See Comments) 2019-05-25 00:00:00 Tongue swelling [place] [facility] Tomato Propensity to adverse reactions to drug Active Rash 2019-04-28 00:00:00 Deric Daveyis t Ondansetron Hcl Propensity to adverse reactions to drug Active Rash 2019-04-06 00:00:00 Deric Daveyis t ondansetron DA Active U 2017-12-31 00:00:00 [facility] Tramadol Propensity to adverse reactions to drug Active Rash 2017-12-07 00:00:00 Deric Daveyis t phenazopyridine HCl DA Active U 2017-11-26 00:00:00 [facility] ketorolac tromethamine DA Active U 2017-11-26 00:00:00 [facility] Penicillins DA Active U 2017-11-26 00:00:00 [facility] Ketorolac Propensity to adverse reactions to drug Active 2016-12-17 00:00:00 [facility] Nsaids (Non-Steroidal Anti-Inflammatory Drug) Propensi ty to adverse reactions to drug Active Anaphylaxis 2016-05-07 00:00:00 [facility] Penicillins Propensity to adverse reactions to drug Active Anaphylaxis 2016-04-09 00:00:00 [facility] Penicillins Propensity to adverse reactions to drug Active 2015-03-26 00:00:00 [facility] Haloperidol Lactate Propensity to adverse reactions to drug Active 2013-01-05 00:00:00 [facility] Tramadol Propensity to adverse reactions to drug Active Hives 2012-02-08 00:00:00 [facility] Penicillins Propensity to adverse reactions to drug Active Rash 2011-03-24 00:00:00 [facility] Ketorolac Tromethamine Propensity to adverse reactions to drug Acti ve Swelling 2011-03-14 00:00:00 [facility] Phenazopyridine Propensity to adverse reactions to drug Active Anaphylaxis [facility] Family History Family Member Diagnosis Comments Start Date Stop Date Source Natural mother Cancer [facility] Natural mother Hypertension [facility] Natural mother Renal Disease [facility] Natural mother Cancer [facility] Natural brother No Known Problems jaime Amaral Cousin No Known Problems [facility] Natural father No Known Problems [facility] feliz [facility] Maternal aunt No Known Problems [facility] Maternal grandfather No Known Problems [facility] Maternal grandmother No Known Problems [facility] Maternal uncle No Known Problems Graciela feliz [facility] Other No Known Problems [facility] Paternal aunt No Known Problems [place] [facility] Paternal grandfather No Known Problems [facility] Paternal grandmother No Known Problems [facility] Paternal uncle No Known Problems [facility]a fel[facility] Natural sister No Known Problems Graciela feliz [facility] Social History Social Habit Start Date Stop Date Quantity Comments Source History of tobacco use Cigarette Smoker Deric Amaral Sex Assigned At Graciela Amaral Cigarettes smoked current (pack per day) - Reported 00:00:00 2019-08-07 00:00:00 Deric Amaral Cigarette pack-years 2019-08-07 00:00:00 2019-08-07 00:00:00 Deric Daveyist Alcohol intake 2019-08-07 00:00:00 2019-08-07 00:00:00 Current non-drinker of alcohol (finding) Deric Amaral Tobacco Comment 2016-12-09 00:00:00 2016-12-09 00:00:00 states s he quit smoking "6 months ago" Deric Amaral Alcohol Comment 2012-12-24 00:00:00 2012-12-24 00:00:00 kirsten [facility] Smoking Status Start Date Stop Date Source Current some day smoker 2019-08-07 00:00:00 [place] [facility] Current every day smoker 2018-06-17 00:00:00 [facility] with [facility] Medications Ordered Medication Name Filled Medication Name Start Date Stop Da te Current Medication? Ordering Clinician Indication Dosage Frequency Signature (SIG) Comments Components Source Acetaminophen With Codeine (Tylenol With Codeine #3 Ta blet) 1 Each TABLET Acetaminophen With Codeine (Tylenol With Codeine #3 Tablet) 1 Each TABLET 2019-12-01 12:34:00 Yes 300 Four Times Daily a s needed for Pain [facility] Promethazine Hcl (Phenadoz) 25 Mg SUPP.RECT Promethazi ne Hcl (Phenadoz) 25 Mg SUPP.RECT 2019-12-01 12:34:00 Yes 25 Th ree Times A Day as needed for Nausea, Vomiting [facility] Sulfamethoxazole/Trimethoprim (Bactrim Ds Tablet) 1 Ea ch TABLET Sulfamethoxazole/Trimethoprim (Bactrim Ds Tablet) 1 Each TABLET 2019-12-01 12:34:00 Yes [address] [facility] promethazine (PHENERGAN) 25 MG tablet 2019-09-09 00:00 :00 2019-10-09 23:59:00 No 25mg Q6H Take 1 tablet ( 25 mg total) by mouth every 6 (six) hours as needed for nausea or vomiting for up to 30 days. Deric Amaral nitrofurantoin, macrocrystal-monohydrate, (MACROBID) 100 MG capsule 2019-09-09 00:00:00 2019-09-16 23:59:00 No 100mg Q.5D Take 1 capsule (100 mg total) by mouth 2 (two) times a day for 7 days. Kayode Amaral doxycycline (VIBRAMYCIN) 50 MG capsule 6 00:00:00 2019-08-16 23:59:00 No 100mg Q.5D Take 2 capsule s (100 mg total) by mouth 2 (two) times a day for 7 days. Deric Amaral acetaminophen-codeine (TYLENOL WITH CODEINE #3) 300-30 mg pe r tablet 2019-06-20 00:00:00 2019-06-23 23:59:00 No acute pain 1{tbl} Q6H Take 1-2 tablets by mouth every 6 (six) hours as needed for moderate pain for up to 3 days .Acute Pain. Deric Amaral ARIPiprazole (ABILIFY) 10 MG tablet 2019-04-30 10:34:5 1 2019-04-30 00:00:00 No 10mg QD Take 10 mg by mouth every morning. Deric Amaral cephalexin (KEFLEX) 500 MG capsule 2019-04-30 10:34:51 201 04-12-27 00:00:00 No 500mg Q.25D Take 500 mg by m outh 4 (four) times a day. X 14 days. Started on 10-16-2016 Deric Amaral diazePAM (VALIUM) 10 MG tablet 2019-04-30 10:34:51 2019-04-30 00 :00:00 No 10mg Q.[id number] Take 10 mg by mouth 3 (three) times a day. Deric Amaral zolpidem (AMBIEN) 10 mg tablet 2019-04-30 10:34:51 2019-04-30 00 :00:00 No 10mg QD Take 10 mg by mouth nightly as needed for sleep. Deric Amaral citalopram (CeleXA) 20 MG tablet 2019-04-30 09:31:32 2019-04 00:00:00 No 20mg QD Take 20 mg by mouth every morning. Deric Amaral clindamycin (CLEOCIN) 300 MG capsule 2019-04-30 09:31: 32 2019-04-30 00:00:00 No 300mg Q.[id number] Take 300 mg by mouth 3 (three) times a day. X 14 days. Started on 10-16-2016 Deric Amaral citalopram (CeleXA) 20 MG tablet 2019-04-30 00:00:00 2019-05 23:59:00 No major depressive disorder 20mg QD Take 1 tablet (20 mg total) by mouth every morning for 30 days .major depressive disorder. Deric Amaral ARIPiprazole (ABILIFY) 15 MG tablet 2019-04-30 00:00:0 0 2019-05-30 23:59:00 No 15mg QD Take 1 tablet ( 15 mg total) by mouth daily for 30 days .reports AH's. Deric Amaral cephalexin (KEFLEX) 500 MG capsule 2019-04-30 00:00:00 04-13-27 23:59:00 No 500mg Q.5D Take 1 capsule ( 500 mg total) by mouth 2 (two) times a day for 30 days .Osteomyelitis. Deric Amaral clindamycin (CLEOCIN) 300 MG capsule 2019-04-30 00:00: 00 2019-05-30 23:59:00 No 300mg Q.[id number] Take 1 capsule (300 mg total) by mouth 3 (three) times a day for 90 doses .Osteomyelitis. X 14 days. Started on 10-16-2016 Deric Amaral acetaminophen-codeine (TYLENOL WITH CODEINE #3) 300-30 mg pe r tablet 2019-04-30 00:00:00 2019-05-30 23:59:00 No acute pain 1{tbl} Q8H Take 1 tablet by mouth every 8 (eight) hours as needed for moderate pain (in hNSDS) for up to 10 doses .Acute Pain. Deric Amaral gabapentin (NEURONTIN) 300 mg capsule 2019-04-30 00:00 :00 2019-05-30 23:59:00 No 300mg Q.[id number] Take 1 capsule (300 mg total) by mouth 3 (three) times a day for 30 days .ANXIETY. Deric Amaral nicotine (NICODERM CQ) 14 mg/24 hr 2019-04-30 00:00:00 201 04-13-27 23:59:00 No smoking cessation 1{patch} QD Place 1 patch on the skin daily for 30 days .Stop Smoking. Deric Amaral traZODone (DESYREL) 100 MG tablet 2019-04-30 00:00:00 2018 23:59:00 No insomnia associated with depression 100mg QD Take 1 tablet (100 mg total) by mouth nightly as needed for sleep for up to 30 days .insomnia associated with depression. Deric Amaral promethazine (PHENERGAN) 25 MG tablet 2019-04-06 00:00 :00 2019-04-30 00:00:00 No 25mg Q6H Take 1 tablet ( 25 mg total) by mouth every 6 (six) hours as needed for nausea or vomiting for up to 30 days. [facility] citalopram (CELEXA) 20 mg tablet 2018-07-02 00:00:00 Yes PTSD (post- traumatic stress disorder) 20mg QD Take 1 tablet by mouth daily. [facility] gabapentin (NEURONTIN) 400 mg capsule 2018-07-01 00:00:00 Yes PTSD (post- traumatic stress disorder) 400mg Take 1 capsule by mouth 3 times daily. [facility] nicotine polacrilex (NICORETTE) 2 mg Gum 2018-07-01 00:00:00 Yes PTSD (post-traumatic stress disorder) 2mg Place 1 Each inside cheek as needed for Other (nicotene). [facility] QUEtiapine (SEROQUEL) 100 mg tablet 2018-07-01 00:00:00 Yes PTSD (post- traumatic stress disorder) 100mg Take 1 tablet by mouth at b edtime nightly. [facility] QUEtiapine (SEROQUEL) 50 mg tablet 2018-07-01 00:00:00 Yes PTSD (post- traumatic stress disorder) 50mg Q.5D Take 1 tablet by mouth 2 times daily. [facility] QUEtiapine (SEROQUEL) 100 mg tablet 2018-05-04 00:00:00 Yes Polysubstance abuse 100mg Take 1 tablet by mouth at bedtime nightly for 1 4 days. [facility] gabapentin (NEURONTIN) 400 mg capsule 2016-04-20 00:00:00 Yes Polysubstance abuse 400mg Take 1 capsule by mouth 3 times da beverly for 7 days. [facility] Immunizations Ordered Immunization Name Filled Immunization Name Date Status Comments Source Rho (D) Immune Globulin 2016-11-02 00:00:00 Completed Deric Amaral Tdap 2016-08-18 00:00:00 Completed Aren Amaral Rho (d) Immune Glob 1500u Vial Inj In Clinic 2015-03-14 00 :00:00 Completed [facility] Ceftriazone 250mg Injection 2011-04-24 00:00:00 Completed [facility] Vital Signs Vital Name Observation Time Observation Value Comments Source Systolic blood pressure 2019-09-09 21:07:00 106 mm[Hg] Deric Amaral Diastolic blood pressure 2019-09-09 21:07:00 59 mm[Hg] Deric Amaral Heart rate 2019-09-09 21:07:00 81 /min Deric Amaral Respiratory rate 2019-09-09 21:07:00 19 /min Tiffanie Amaral Oxygen saturation in Arterial blood by Pulse oximetry 09-09 21:07:00 99 /min Deric Amaral Body temperature 2019-09-09 20:35:00 36.61 Madai Tiffanie Amaral Body height 2019-09-09 15:50:00 165.1 cm Deric Amaral Body weight 2019-09-09 15:50:00 63.504 kg Deric Amaral BMI 2019-09-09 15:50:00 23.30 kg/m2 Deric Amaral Procedures Procedure Date / Time Performed Performing Clinician Sour e US PELVIC TRANSABDOMINAL 2019-09-09 19:35:00 Nirmal Gutierrez URINE CULTURE 2019-09-09 17:54:00 Nirmal Gutierrez HC COMPLETE BLD COUNT W/AUTO DIFF 2019-09-09 16:55:00 Steve Gutierrez COMPREHENSIVE METABOLIC PANEL 2019-09-09 16:55:00 Nirmal Gutierrez LIPASE LEVEL 2019-09-09 16:55:00 Nirmal Gutierrez URINALYSIS SCREEN AND MICROSCOPY, WITH REFLEX TO CULTURE 202 16:55:00 Nirmal Gutierrez HCG QUALITATIVE, SERUM SCREEN 2019-09-09 16:55:00 Nirmal Gutierrez URINE DRUGS OF ABUSE SCREEN 2019-09-09 16:55:00 Nirmal Gutierrez ESTIMATED GFR 2019-09-09 16:55:00 Nirmal Gutierrez BASIC METABOLIC PANEL 2019-08-09 04:45:00 Winston Valero ESTIMATED GFR 2019-08-09 04:45:00 Winston Valero URINE DRUGS OF ABUSE SCREEN 2019-08-08 14:15:00 Melanie Bakere Deric Amaral BASIC METABOLIC PANEL 2019-08-08 05:06:00 Khadar Valeroson Tony Amaral HC COMPLETE BLD COUNT W/AUTO DIFF 2019-08-08 05:06:00 Marylu Khadar Amaral ESTIMATED GFR 2019-08-08 05:06:00 Winston Valero LACTIC ACID LEVEL, SEPSIS - NOW AND REPEAT 2X EVERY 3 HOURS 2019-08-08 02:35:00 Ty, Shanthi Amaral LACTIC ACID LEVEL, SEPSIS - NOW AND REPEAT 2X EVERY 3 HOURS 2019-08-07 23:48:00 Ty, Shanthi Amaral BLOOD CULTURE, AEROBIC & ANAEROBIC 2019-08-07 21:25:00 Ty, Nora Amaral COMPREHENSIVE METABOLIC PANEL 2019-08-07 21:25:00 Ty, Shanthi Amaral HC COMPLETE BLD COUNT W/AUTO DIFF 2019-08-07 21:25:00 Ty, Pasha Amaral LACTIC ACID LEVEL, SEPSIS - NOW AND REPEAT 2X EVERY 3 HOURS 2019-08-07 21:25:00 Ty, Shanthi Amaral HCG QUALITATIVE, SERUM SCREEN 2019-08-07 21:25:00 Ty, Shanthi Amaral ESTIMATED GFR 2019-08-07 21:25:00 Ty, Shanthi Amaral BLOOD CULTURE, AEROBIC & ANAEROBIC 2019-08-07 21:20:00 Ty, Nora Amaral US PELVIC TRANSVAGINAL 2019-06-21 00:11:35 Raeann Tatum US PELVIC TRANSABDOMINAL 2019-06-21 00:11:[address] ABDOMEN PELVIS W CONTRAST 2019-06-20 23:14:46 Raeann Tatum URINE CULTURE 2019-06-20 21:23:00 Raeann Tatum GRAM STAIN 2019-06-20 21:23:00 Raeann Tatum HC COMPLETE BLD COUNT W/AUTO DIFF 2019-06-20 20:58:00 Tatum, Meenakshi Russellnick Amaral COMPREHENSIVE METABOLIC PANEL 2019-06-20 20:58:00 Tatum, Raeann Jessie Amaral LIPASE LEVEL 2019-06-20 20:58:00 Tatum, Raeann Jessiemono [facility] ESTIMATED GFR 2019-06-20 20:58:00 Tatum, Raeann Jessie Amaral URINALYSIS SCREEN AND MICROSCOPY, WITH REFLEX TO CULTURE 201 04-14-17 20:54:00 Tatum, Raeann Jessie Amaral HCG QUALITATIVE, URINE SCREEN 2019-06-20 20:54:00 Tatum, Raeann Jessie Amaral HC COMPLETE BLD COUNT W/AUTO DIFF 2019-06-08 07:25:00 Mart Renae COMPREHENSIVE METABOLIC PANEL 2019-06-08 07:25:00 Christi Renae ESTIMATED GFR 2019-06-08 07:25:00 Mart Renae URINE DRUGS OF ABUSE SCREEN 2019-06-08 07:02:00 Marly Renae HCG QUALITATIVE, SERUM SCREEN 2019-06-08 07:02:00 Christi Renae THYROID STIMULATING HORMONE 2019-06-08 07:02:00 Marly Renae T4, FREE 2019-06-08 07:02:00 Mart Renae HC COMPLETE BLD COUNT W/AUTO DIFF 2019-05-27 14:45:00 Carlito Goode COMPREHENSIVE METABOLIC PANEL 2019-05-27 14:45:00 Rosales Goode T4, FREE 2019-05-27 14:45:00 Rosales Goode In [facility]odist THYROID STIMULATING HORMONE 2019-05-27 14:45:00 Rosales Goode CREATINE KINASE, TOTAL (CPK) 2019-05-27 14:45:00 Tirjessica, Aatif HKaylee Amaral HCG QUALITATIVE, SERUM SCREEN 2019-05-27 14:45:00 Rosales Goode [facility] ACETAMINOPHEN LEVEL 2019-05-27 14:45:00 Tirmizi, Aatif H. [place] [facility] SALICYLATE LEVEL 2019-05-27 14:45:00 Tirjessica, Rosales HKaylee [facility] ethodist ESTIMATED GFR 2019-05-27 14:45:00 Rupa, Deonif HKaylee Leos Me thodist ECG 12-LEAD 2019-05-27 14:40:52 Shreyas Alanis hodist ECG ED PRELIMINARY INTERPRETATION 2019-05-27 14:09:19 Carlito Goode HC COMPLETE BLD COUNT W/AUTO DIFF 2019-05-25 15:00:00 Luis Navas BASIC METABOLIC PANEL 2019-05-25 15:00:00 [facility] ESTIMATED GFR 2019-05-25 15:00:00 Aly Navas HC COMPLETE BLD COUNT W/AUTO DIFF 2019-05-24 15:08:00 Marcos Rincon COMPREHENSIVE METABOLIC PANEL 2019-05-24 15:08:00 Sole Rincon T4, FREE 2019-05-24 15:08:00 Sole Rincon ethodist THYROID STIMULATING HORMONE 2019-05-24 15:08:00 Sole Rincon HCG QUALITATIVE, SERUM SCREEN 2019-05-24 15:08:00 Sole Rincon ACETAMINOPHEN LEVEL 2019-05-24 15:08:00 Sole Rincon on [facility] SALICYLATE LEVEL 2019-05-24 15:08:00 Sole Rincon ESTIMATED GFR 2019-05-24 15:08:00 Sole Rincon ethodist URINE CULTURE 2019-05-24 14:24:00 Sole Rincon ethodist URINALYSIS SCREEN AND MICROSCOPY, WITH REFLEX TO CULTURE 201 04-13-21 14:24:00 Sole Rincon URINE DRUGS OF ABUSE SCREEN 2019-05-24 14:24:00 Sole Rincon serene Amaral HEMOGLOBIN A1C 2019-04-28 22:55:00 Atilio Corona LIPID PANEL 2019-04-28 04:00:00 Atilio Corona URINE CULTURE 2019-04-27 20:58:00 Brian Pond Meth odjames URINE DRUGS OF ABUSE SCREEN 2019-04-27 20:58:00 Brian Pond URINALYSIS SCREEN AND MICROSCOPY, WITH REFLEX TO CULTURE 201 04-12-24 20:58:00 Brian Pond ECG ED PRELIMINARY INTERPRETATION 2019-04-27 15:24:23 Addi Pond THYROID STIMULATING HORMONE 2019-04-27 15:20:00 Brian Pond T4, FREE 2019-04-27 15:20:00 Brian Pond odjames ACETAMINOPHEN LEVEL 2019-04-27 15:20:00 Brian Pond SALICYLATE LEVEL 2019-04-27 15:20:00 Brian Pond Met hodist COMPREHENSIVE METABOLIC PANEL 2019-04-27 15:17:00 Brian Pond ALCOHOL LEVEL, BLOOD 2019-04-27 15:17:00 Brian Pond ESTIMATED GFR 2019-04-27 15:17:00 Brian Pond Meth odjames HC COMPLETE BLD COUNT W/AUTO DIFF 2019-04-27 15:17:00 Addi Pond CREATINE KINASE, TOTAL (CPK) 2019-04-27 15:17:00 Brian Pond HCG QUALITATIVE, SERUM SCREEN 2019-04-27 15:17:00 Brian Pond ECG 12-LEAD 2019-04-27 14:51:09 Brian Pond Meth odjames HC COMPLETE BLD COUNT W/AUTO DIFF 2019-04-06 22:26:[address] ABDOMEN PELVIS W CONTRAST 2019-04-06 22:14:20 Nirmal Gutierrez COMPREHENSIVE METABOLIC PANEL 2019-04-06 20:50:00 Nirmal Gutierrez LIPASE LEVEL 2019-04-06 20:50:00 Nirmal Gutierrez ESTIMATED GFR 2019-04-06 20:50:00 Nirmal Gutierrez URINE CULTURE 2019-04-06 19:14:00 Carson Landrum URINALYSIS SCREEN AND MICROSCOPY, WITH REFLEX TO CULTURE 201 04-12-03 19:14:00 Carson Landrum HCG QUALITATIVE, URINE SCREEN 2019-04-06 19:14:00 Solange Landrum Plan of Care Planned Activity Planned Date Details Comments Source Future Scheduled Test 2020-05-04 00:00:00 IMM Influenza Seas onal May to October (>/= 19 yrs) [code = IMM Influenza Seasonal May to October (>/= 19 yrs)] [facility] Scheduled Test 2020-03-04 00:00:00 INFLUENZA VACCINE [code = INFLUENZA VACCINE] [facility] [facility] Scheduled Test 2004-12-20 00:00:00 Cervical Cancer Sc rn (3 Yrs) [code = Cervical Cancer Scrn (3 Yrs)] [facility] Scheduled Test 2004-12-20 00:00:00 Screening for corby gnant neoplasm of cervix (procedure) [code = 907528114] Leos Swetha t Instructions Dysuria - Female [facility] Instructions Hematuria - Female [facility] Instructions Vomiting - Adult [facility] Encounters Start Date/Time End Date/Time Encounter Type Admission Type [facility] Care Department Encounter ID Source 2018-06-17 17:18:00 Inpatient [facility] MED [id number] [facility] 2018-04-29 17:27:00 Inpatient [facility] MED [id number] [facility] 2019-12-01 10:56:00 2019-12-01 13:27:00 Departed Emergency Room [address] [facility] [id number] I [facility] 2019-11-30 15:08:00 2019-11-30 15:08:00 Emergency E MHBL MHBL [id number] [facility] 2019-09-22 12:14:00 2019-09-22 12:14:00 Emergency E MHSE MHSE [id number] [facility]SE 2019-09-14 14:36:00 2019-09-14 14:36:00 Emergency E MHBL MHBL [id number] [facility]BL 2019-09-09 00:00:00 2019-09-09 00:00:00 Emergency [facility] [id number] [facility] 2019-08-12 21:23:00 2019-08-12 21:23:00 Emergency E MHFB MHFB [id number] MHFB 2019-08-07 00:00:00 2019-08-09 00:00:00 Inpatient SHAHRAM MCCLOUD [facility] [id number] [facility] 2019-08-04 10:42:00 2019-08-04 10:42:00 Emergency E MHBL MHBL [id number] BL 2019-06-20 00:00:00 2019-06-21 00:00:00 Emergency RAEANN TATUM [place] [id number] [facility] 2019-06-08 00:00:00 2019-06-08 00:00:00 Emergency ANILA TISHAKARTHIK STROUD [place] [address] [id number] [facility] 2019-06-06 19:53:00 2019-06-06 19:53:00 Emergency E MHKM MHKM [id number] [facility] 2019-05-27 00:00:00 2019-05-29 00:00:00 Emergency [place] [id number] [facility] 2019-05-05 00:27:00 2019-05-05 00:27:00 Emergency E MHKM MHKM [id number] [facility] 2019-04-10 20:33:00 2019-04-10 20:33:00 Emergency E MHFB MHFB [id number] FB 2019-02-16 00:56:00 2019-02-16 00:56:00 Emergency E [facility] 7588 [facility] 2019-01-06 11:53:00 2019-01-06 11:53:00 Emergency E [facility] [id number] [facility] 2018-10-21 11:07:00 2018-10-21 11:07:00 Emergency E [facility] 7585 [facility] 2018-07-22 00:00:00 2018-07-22 00:00:00 Outpatient [facility] [id number] [facility] 2018-07-17 00:00:00 2018-07-17 00:00:00 Outpatient [facility] [id number] [facility] 2018-06-29 15:12:59 2018-06-29 15:12:59 Outpatient [facility] [id number] [facility] 2018-06-23 08:00:36 2018-06-23 08:00:36 Outpatient [facility] [id number] [facility] 2018-06-18 12:41:11 2018-06-18 12:41:11 Outpatient [facility] [id number] [facility] 2018-06-17 13:53:30 2018-06-17 13:53:30 Emergency [facility] [id number] [facility] 2018-06-17 10:57:15 2018-06-17 10:57:15 Emergency [facility] [id number] [facility] 2018-06-16 21:30:44 2018-06-16 21:30:44 Emergency [facility] [id number] [facility] 2018-05-19 00:00:00 2018-05-19 00:00:00 Outpatient [facility] [id number] [facility] 2018-05-15 00:00:00 2018-05-15 00:00:00 Outpatient [facility] [id number] [facility] 2018-05-05 11:09:57 2018-05-05 11:09:57 Outpatient [facility] [id number] [facility] 2018-04-26 19:41:32 2018-04-26 19:41:32 Emergency [facility] [id number] [facility] 2016-12-12 16:24:00 2016-12-12 16:24:00 Emergency E [facility] MED [id number] [facility] Results Test Description Test Time Test Comments Results Result Comments Source CT, ABDOMEN 2019-12-25 05:16:00 Reason for exam:->AB DOMINAL PAINSuprapubic pain that radiates to the right lower back. Pt. had finished her Rx ABX for UTI 2 days ago. Also c/o burning \\T\\ frequency of urination with N/V.Is the patient ?->NoWhat is the patient's sedation requirement?->No Sedation FINAL REPORT CLINICAL HISTORY: Acute abdominal pain [...] bony abnormality. IMPRESSION: No acute abnormality. Signed: Leigh Pichardo MDReport Verified Date/Time: 12/25/2019 05:16:07 C METABOLIC PANEL 2019-12-25 03:08:00 Test Item SODIUM (BEAKER) (test code = 381) 139 meq/L 135-148 POTASSIUM (BEAKER) (test code = 379) 3.4 meq/L 3.6-5.5 L CHLORIDE (BEAKER) (test code = 382) 106 meq/L 98-106 CO2 (BEAKER) (test code = 355) 24 meq/L 20-29 BLOOD UREA NITROGEN (BEAKER) (test code = 354) 9 mg/dL 10-26 L CREATININE (BEAKER) (test code = 358) 0.82 mg/dL 0.50-1.20 GLUCOSE RANDOM (BEAKER) (test code = 652) 69 mg/dL 70-110 L CALCIUM (BEAKER) (test code = 697) 9.7 mg/dL 8.5-10.5 EGFR (BEAKER) (test code = 1092) 96 mL/min/1.73 sq m ESTIMATED GFR IS NOT ACCURATE CREATININE CLEARANCE IN PREDICTING GLOMERULAR FILTRATION RATE. ESTIMATED GFR IS NOT APPLICABLE FOR DIALYSIS PATIENTS. Flaker Operator ID - [id number] 03:05:00* Test Item Value Reference Range Interpretation Comments LIPASE (BEAKER) (test code = 749) 20 U/L 6-51 Flaker Operator ID - RESORIANURINALYSIS W/ [id number] 03:05:00* Test Item Value Reference Range Interpretation Comments COLOR (BEAKER) (test code = 470) Yellow CLARITY (BEAKER) (test code = 469) Slightly Cloudy SPECIFIC GRAVITY UA (BEAKER) (test code = 468) 1.025 1.001-1 .035 PH UA (BEAKER) (test code = 467) 6.0 5.0-8.0 PROTEIN UA (BEAKER) (test code = 464) Negative Negative GLUCOSE UA (BEAKER) (test code = 365) Negative Negative KETONES UA (BEAKER) (test code = 371) Negative Negative BILIRUBIN UA (BEAKER) (test code = 462) Negative Negative BLOOD UA (BEAKER) (test code = 461) Negative Negative NITRITE UA (BEAKER) (test code = 465) Negative Negative LEUKOCYTE ESTERASE UA (BEAKER) (test code = 466) Trace Negat karla A UROBILINOGEN UA (BEAKER) (test code = 463) 0.2 mg/dL 0.2-1.0 BACTERIA (BEAKER) (test code = 517) Moderate RBC UA-MANUAL (BEAKER) (test code = 1659) <5 /HPF WBC UA-MANUAL (BEAKER) (test code = 1661) 5-10 /HPF SQUAMOUS EPITHELIAL MANUAL (BEAKER) (test code = 1663) 10-20 /HPF SOURCE(BEAKER) (test code = 2795) HEPATIC FUNCTION [id number] 03:04:00* Test Item Value Reference Range Interpretation Comments TOTAL PROTEIN (BEAKER) (test code = 770) 7.8 gm/dL 6.0-8.5 ALBUMIN (BEAKER) (test code = 1145) 4.4 g/dL 3.5-5.0 BILIRUBIN TOTAL (BEAKER) (test code = 377) 0.2 mg/dL 0.1-1.2 BILIRUBIN DIRECT (BEAKER) (test code = 706) < mg/dL 0.0-0.4 ALKALINE PHOSPHATASE (BEAKER) (test code = 346) 40 U/L 30-115 AST (SGOT) (BEAKER) (test code = 353) 15 U/L 5-40 ALT (SGPT) (BEAKER) (test code = 347) 10 U/L 5-50 Flaker Operator ID - RESORIANPREGNANCY SCREEN, [id number] 03:02:00* Test Item Value Reference Range Interpretation Comments TEST URINE (BEAKER) (test code = 583) Negative LACTIC ACID, [id number] 02:57:00* Test Item Value Reference Range Interpretation Comments LACTATE BLOOD VENOUS (2) (BEAKER) (test code = 2872) 0.41 mmol/L 0 .50-2.00 L Flaker Operator ID - RESORIANCBC W/PLT COUNT & AUTO [id number] 02:44:00* Test Item Value Reference Range Interpretation Comments WHITE BLOOD CELL COUNT (BEAKER) (test code = 775) 4.6 K/ L 4.0- 10.0 RED BLOOD CELL COUNT (BEAKER) (test code = 761) 4.09 M/ L 4.00-5 .00 HEMOGLOBIN (BEAKER) (test code = 410) 13.1 GM/DL 12.0-15.5 HEMATOCRIT (BEAKER) (test code = 411) 38.7 % 36.0-46.0 MEAN CORPUSCULAR VOLUME (BEAKER) (test code = 753) 94.6 fL 82. 0-99.0 MEAN CORPUSCULAR HEMOGLOBIN (BEAKER) (test code = 751) 32.0 pg 27.0-33.0 MEAN CORPUSCULAR HEMOGLOBIN CONC (BEAKER) (test code = 752) 33.9 GM/DL 32.0-36.0 RED CELL DISTRIBUTION WIDTH (BEAKER) (test code = 412) 12.9 % 12.0-15.0 PLATELET COUNT (BEAKER) (test code = 756) 262 K/CU MM 150-430 MEAN PLATELET VOLUME (BEAKER) (test code = 754) 11.1 fL 6.0-11 .5 NUCLEATED RED BLOOD CELLS (BEAKER) (test code = 413) 0 /100 WBC 0 -0 NEUTROPHILS RELATIVE PERCENT (BEAKER) (test code = 429) 45 % LYMPHOCYTES RELATIVE PERCENT (BEAKER) (test code = 430) 42 % MONOCYTES RELATIVE PERCENT (BEAKER) (test code = 431) 8 % EOSINOPHILS RELATIVE PERCENT (BEAKER) (test code = 432) 4 % BASOPHILS RELATIVE PERCENT (BEAKER) (test code = 437) 1 % NEUTROPHILS ABSOLUTE COUNT (BEAKER) (test code = 670) 2.07 K/ L 1.80-8.00 LYMPHOCYTES ABSOLUTE COUNT (BEAKER) (test code = 414) 1.96 K/ L 1.48-4.50 MONOCYTES ABSOLUTE COUNT (BEAKER) (test code = 415) 0.36 K/ L 0. 00-1.30 EOSINOPHILS ABSOLUTE COUNT (BEAKER) (test code = 416) 0.20 K/ L 0.00-0.50 BASOPHILS ABSOLUTE COUNT (BEAKER) (test code = 417) 0.05 K/ L 0. 00-0.20 IMMATURE GRANULOCYTES-RELATIVE PERCENT (BEAKER) (test code = 2801) 0 % 0-0 US PELVIS-NON OB - [id number] 12:54:00 [place] [address] Patient Name: KENNETH PLATT MR #: [id number] : 1985 Age/Sex: 33/F Req #: [id number] Adm Physician: Ordered by: ED WAGNER MD Report #: [id number] Location: ED Room/Bed: Procedure: [id number] HOPD/US PEL VIS-NON OB - HOPD Exam Date: 12/01/19 Exam Time: 124 7 REPORT STATUS: Signed Exam: Pelvic ultrasound. History: Pelvic pain Comparison: CT abdomen and pelvis of the same day Findings: Transabdominal and endovaginal sonographic evaluation of the pelvis. The uterus is anteverted in position, measuring 6.2 x 3.7 x 5.2cm. Endometrial stripe thickness is 3 millimeters. The right ovary measures 2.8 x 2.3 x 2.5 cm and appears unremarkable. The left ovary is not w ell-visualized due to overlying bowel gas. No free fluid in the pelvis. Impression: Left ovary not well-visualized due to overlying bowel gas. Otherwi se, normal pelvic ultrasound. Signed by: Juan David Spence MD on 12/01/2019 12:5 5 PM Dictated By: JUAN DAVID SPENCE MD 125 Transcribed By: MALLIKA on 12/01/19 1255 COPY TO: ED JOLLY MD CT ABD/PEL WO [id number] 12:47:00 [place] [address] Patient Name: KENNETH PLATT MR #: [id number] : 1985 Age/Sex: 33/F Req #: [id number] Adm Physician: Ordered by: ED WAGNER MD Report #: [id number] Location: [facility] Room/Bed: Procedure: [id number] HOPD/CT ABD /PEL WO CONTRAST-HOPD Exam Date: 12/01/19 Exam Time: 1218 REPORT STATUS: Signed EXAM: CT Abdomen and Pelvis WITHOUT intravenous contrast INDICATION: Flank pain COMPARISON: Pelvic ultrasound of the same day TECHNIQUE: Abdomen and pelvis were scanned utilizing a multidetector helical scanner from the lung base to the pubic symphysis without administration of IV contrast. Coronal and sagittal reformations were obtained. IV CONTRAST: None ORAL CONTRA ST: None COMPLICATIONS: None RADIATION DOSE: Total DLP: 680 mGy*cm Dose modulation, iterative reconstruction, and/or weight based adjustment of the mA/kV was utilized to reduce the radiation dose to as low as reasonably achievable. FINDINGS: LOWER THORAX: Normal. HEPATOBIL IARY: No focal liver lesion. Unremarkable gallbladder. SPLEEN: No splenomeg leona. PANCREAS: No focal masses or ductal dilatation. ADRENALS: No adre nal nodules. KIDNEYS/URETERS: No hydronephrosis, stones, or solid mass lesions . PELVIC ORGANS/BLADDER: Unremarkable. PERITONEUM / RETROPERITONEUM: No f ree air or fluid. LYMPH NODES: No lymphadenopathy. VESSELS: Unremarkable. GI TRACT: No abnormal bowel thickening. No bowel obstruction. Normal appendix. BONES AND SOFT TISSUES: No acute osseous injury. No suspicious lytic or b lastic lesions. IMPRESSION: No acute findings in the abdomen or pelvis . Specifically, no renal calculi or hydronephrosis. Signed by: Juan David Spence MD on 12/01/2019 12:54 PM Dictated By: JUAN DAVID SPENCE MD Electronically Sig justin By: JUAN DAVID SPENCE MD on 12/01/19 1254 Transcribed By: MALLIKA on 12/01/19 1254 COPY TO: ED WAGNER MD CT, [id number] 16:13:00 Reason for exam:->ABDOMINAL PAINReason for exam:->NAUSEAReason for exam:-> EMESISIs the patient ?->NoWhat is the patient's sedation requirement?-> No SedationFINAL REPORT TECHNIQUE: CT of the abdomen and pelvis WITH intravenous contrast and WITHOUT oral contrast. Dose modulation, iterative reconstruction, and/or weight-based adjustment of the mA/kV was utilized to reduce the radiation dose to as low as reasonably achievable. INDICATION: ABDOMINAL PAINNAUSEAEMESISabdominal pain. COMPARISON: CT from 08/17/2019. FINDINGS: LOWER THORAX: Unremarkable. HEPATOBILIARY: No focal hepatic lesions. Gallbladder is unremarkable. No biliary ductal dilatation.SPLEEN: No splenomegaly.PANCREAS: No focal masses or ductal dilatation. ADRENALS: No adrenal nodules.KIDNEYS/URETERS: No hydronephrosis, stones, or masses.PELVIC ORGANS/BLADDER: A right ovarian peripherally enhancing structure measures 1.6 cm and is consistent with a corpus sodium. No routine follow-up imaging is recommended. PERITONEUM/RETROPERITONEUM: Trace free fluid in the pelvis. No free air.LYMPH NODES: No lymphadenopathy.VESSELS: Un remarkable. GI TRACT: No distention or wall thickening. There is a linear hyperd ense structure in the colon which is best seen on sagittal image 76. The appendi x is normal. BONES AND SOFT TISSUES: Unremarkable. IMPRESSION: 1.No explanation on this CT for the abdominal pain, nausea, and emesis. 2.There is a linear hype rdense structure in the colon. This could be a chicken bone. There are no signs of perforation. Signed: Tereso Rose MDReport Verified Date/Time: 11/06/2019 16:1 3:27 Reading Location: [facility] C013Y CT Body Reading Room Electronically sig justin by: TERESO ROSE MD on 11/06/2019 04:13 PM URINALYSIS W/ MICROSCOPIC 2019-11-06 15:23:00* Test Item Value Reference Range Interpretation Comments COLOR (BEAKER) (test code = 470) Yellow CLARITY (BEAKER) (test code = 469) Clear SPECIFIC GRAVITY UA (BEAKER) (test code = 468) 1.025 1.001-1 .035 PH UA (BEAKER) (test code = 467) 6.0 5.0-8.0 PROTEIN UA (BEAKER) (test code = 464) Negative Negative GLUCOSE UA (BEAKER) (test code = 365) Negative Negative KETONES UA (BEAKER) (test code = 371) Negative Negative BILIRUBIN UA (BEAKER) (test code = 462) Negative Negative BLOOD UA (BEAKER) (test code = 461) Negative Negative NITRITE UA (BEAKER) (test code = 465) Negative Negative LEUKOCYTE ESTERASE UA (BEAKER) (test code = 466) Negative Negat karla UROBILINOGEN UA (BEAKER) (test code = 463) 0.2 mg/dL 0.2-1.0 BACTERIA (BEAKER) (test code = 517) Few RBC UA-MANUAL (BEAKER) (test code = 1659) <5 /HPF WBC UA-MANUAL (BEAKER) (test code = 1661) <5 /HPF SQUAMOUS EPITHELIAL MANUAL (BEAKER) (test code = 1663) 10-20 /HPF SOURCE(BEAKER) (test code = 2795) SCREEN, [id number] 15:22:00* Test Item Value Reference Range Interpretation Comments TEST URINE (BEAKER) (test code = 583) Negative HIV-1 ANTIGEN WITH HIV-1/2 [id number] 14:49:00* Test Item Value Reference Range Interpretation Comments HIV-1 ANTIGEN WITH HIV 1\\T\\2 ANTIBODY (2) (BEAKER) (te st code = 2586) Nonreactive Nonreactive Flaker Operator ID - [id number] 14:40:00* Test Item Value Reference Range Interpretation Comments LIPASE (BEAKER) (test code = 749) 27 U/L 6-51 Flaker Operator ID - [id number] FUNCTION [id number] 14:39:00* Test Item Value Reference Range Interpretation Comments TOTAL PROTEIN (BEAKER) (test code = 770) 7.4 gm/dL 6.0-8.5 Specimen moderately hemolyzed ALBUMIN (BEAKER) (test code = 1145) 3.8 g/dL 3.5-5.0 Specimen moderately hemolyzed BILIRUBIN TOTAL (BEAKER) (test code = 377) < mg/dL 0.1-1.2 Specimen moderately hemolyzed BILIRUBIN DIRECT (BEAKER) (test code = 706) < mg/dL 0.0-0.4 Specimen moderately hemolyzed ALKALINE PHOSPHATASE (BEAKER) (test code = 346) 47 U/L 30-115 AST (SGOT) (BEAKER) (test code = 353) 26 U/L 5-40 Specimen moderately hemolyzed ALT (SGPT) (BEAKER) (test code = 347) 11 U/L 5-50 Specimen moderately hemolyzed Flaker Operator ID - [id number] METABOLIC [id number] 14:38:00* Test Item Value Reference Range Interpretation Comments SODIUM (BEAKER) (test code = 381) 133 meq/L 135-148 L POTASSIUM (BEAKER) (test code = 379) 5.6 meq/L 3.6-5.5 H Specimen moderately hemolyzed CHLORIDE (BEAKER) (test code = 382) 107 meq/L 98-106 H CO2 (BEAKER) (test code = 355) 18 meq/L 20-29 L BLOOD UREA NITROGEN (BEAKER) (test code = 354) 12 mg/dL 10-26 CREATININE (BEAKER) (test code = 358) 0.70 mg/dL 0.50-1.20 Specimen moderately hemolyzed GLUCOSE RANDOM (BEAKER) (test code = 652) 74 mg/dL 70-110 CALCIUM (BEAKER) (test code = 697) 8.3 mg/dL 8.5-10.5 L EGFR (BEAKER) (test code = 1092) 115 mL/min/1.73 sq m ESTIMATED GFR IS NOT ACCURATE CREATININE CLEARANCE IN PREDICTING GLOMERULAR FILTRATION RATE. ESTIMATED GFR IS NOT APPLICABLE FOR DIALYSIS PATIENTS. Flaker Operator ID - [id number] ACID, [id number] 14:36:00* Test Item Value Reference Range Interpretation Comments LACTATE BLOOD VENOUS (2) (BEAKER) (test code = 2872) 0.77 mmol/L 0 .50-2.00 Specimen markedly hemolyzed Flaker Operator ID - [id number] 14:17:00* Test Item Value Reference Range Interpretation Comments WBC WET PREP (BEAKER) (test code = 528) Few white blood cells seen CLUE CELLS (BEAKER) (test code = 526) No clue cells seen YEAST WET PREP (BEAKER) (test code = 530) No budding yeast seen TRICH WET PREP (BEAKER) (test code = 531) No Trichomonas seen BACT WET PREP (BEAKER) (test code = 532) Moderate bacteria seen CBC W/PLT COUNT & AUTO [id number] 13:33:00* Test Item Value Reference Range Interpretation Comments WHITE BLOOD CELL COUNT (BEAKER) (test code = 775) 4.4 K/ L 4.0- 10.0 RED BLOOD CELL COUNT (BEAKER) (test code = 761) 4.28 M/ L 4.00-5 .00 HEMOGLOBIN (BEAKER) (test code = 410) 13.4 GM/DL 12.0-15.5 HEMATOCRIT (BEAKER) (test code = 411) 40.3 % 36.0-46.0 MEAN CORPUSCULAR VOLUME (BEAKER) (test code = 753) 94.2 fL 82. 0-99.0 MEAN CORPUSCULAR HEMOGLOBIN (BEAKER) (test code = 751) 31.3 pg 27.0-33.0 MEAN CORPUSCULAR HEMOGLOBIN CONC (BEAKER) (test code = 752) 33.3 GM/DL 32.0-36.0 RED CELL DISTRIBUTION WIDTH (BEAKER) (test code = 412) 13.6 % 12.0-15.0 PLATELET COUNT (BEAKER) (test code = 756) 244 K/CU MM 150-430 MEAN PLATELET VOLUME (BEAKER) (test code = 754) 11.8 fL 6.0-11 .5 H NUCLEATED RED BLOOD CELLS (BEAKER) (test code = 413) 0 /100 WBC 0 -0 NEUTROPHILS RELATIVE PERCENT (BEAKER) (test code = 429) 40 % LYMPHOCYTES RELATIVE PERCENT (BEAKER) (test code = 430) 47 % MONOCYTES RELATIVE PERCENT (BEAKER) (test code = 431) 8 % EOSINOPHILS RELATIVE PERCENT (BEAKER) (test code = 432) 4 % BASOPHILS RELATIVE PERCENT (BEAKER) (test code = 437) 1 % NEUTROPHILS ABSOLUTE COUNT (BEAKER) (test code = 670) 1.75 K/ L 1.80-8.00 L LYMPHOCYTES ABSOLUTE COUNT (BEAKER) (test code = 414) 2.05 K/ L 1.48-4.50 MONOCYTES ABSOLUTE COUNT (BEAKER) (test code = 415) 0.37 K/ L 0. 00-1.30 EOSINOPHILS ABSOLUTE COUNT (BEAKER) (test code = 416) 0.17 K/ L 0.00-0.50 BASOPHILS ABSOLUTE COUNT (BEAKER) (test code = 417) 0.04 K/ L 0. 00-0.20 IMMATURE GRANULOCYTES-RELATIVE PERCENT (BEAKER) (test code = 2801) 0 % 0-0 U/S, PELVIS, WITH ENDOVAG AND [id number] 12:25:00Reason for exam:-> ABDOMINAL PAINReason for exam:->VAGINAL BLEEDINGstarted this morningFINAL REPORT PELVIC ULTRASOUND, WITH ENDOVAGINAL STUDY AND DOPPLER History provided: Abdominal pain, vaginal bleeding Transabdominal study supplemented with endovaginal exam. Grayscale, color Doppler, and spectral wave form analysis were performed. Uterus normal in size, measuring 7.4 cm from fun dus to cervix, 4.2 cm in anterior-posterior dimension, and 4.3 cm in transverse dimension. Endometrial stripe measures 7 mm. Ovaries are normal in size. 1.5 cm right ovarian cyst. No adnexal mass. No free pelvic fluid. IMPRESSION: Small rig ht ovarian cyst. Otherwise unremarkable study. Signed: Shiva Harrington MDReport Yasmin ified Date/Time: 09/24/2019 12:25:17 Reading Location: [facility] Radiology Reading Room ALYSIS W/ REFLEX URINE [id number] 10:11:00* Test Item Value Reference Range Interpretation Comments COLOR (BEAKER) (test code = 470) Yellow CLARITY (BEAKER) (test code = 469) Clear SPECIFIC GRAVITY UA (BEAKER) (test code = 468) 1.010 1.001-1 .035 PH UA (BEAKER) (test code = 467) 6.0 5.0-8.0 PROTEIN UA (BEAKER) (test code = 464) Negative Negative GLUCOSE UA (BEAKER) (test code = 365) Negative Negative KETONES UA (BEAKER) (test code = 371) Negative Negative BILIRUBIN UA (BEAKER) (test code = 462) Negative Negative BLOOD UA (BEAKER) (test code = 461) Moderate Negative A NITRITE UA (BEAKER) (test code = 465) Negative Negative LEUKOCYTE ESTERASE UA (BEAKER) (test code = 466) Negative Negat karla UROBILINOGEN UA (BEAKER) (test code = 463) 0.2 mg/dL 0.2-1.0 BACTERIA (BEAKER) (test code = 517) Few RBC UA-MANUAL (BEAKER) (test code = 1659) <5 /HPF WBC UA-MANUAL (BEAKER) (test code = 1661) <5 /HPF SQUAMOUS EPITHELIAL MANUAL (BEAKER) (test code = 1663) <5 /HPF SOURCE(BEAKER) (test code = 2795) SCREEN, [id number] 10:05:00* Test Item Value Reference Range Interpretation Comments TEST URINE (BEAKER) (test code = 583) Negative Urine [id number] 12:51:23* Test Item Value Reference Range Interpretation Comments Urine culture isolate (test code = 91782-3) Mixed vane 10-4 col/cc Specimen InformationSpecimen Source: UrineSpecimen Site: Clean catch [facility] drugs of abuse [id number] 20:41:02* Test Item Value Reference Range Interpretation Comments Amphetamine screen, urine (test code = 3349-8) Positive A Barbiturate screen, urine (test code = 3377-9) Negative Benzodiazepine screen, urine (test code = 3390-2) Negative Cocaine screen, urine (test code = 3397-7) Positive A Methadone metabolite (EDDP), urine (test code = 27823-8) Negative Opiates screen, urine (test code = 3879-4) Negative Phencyclidine screen, urine (test code = 3936-2) Negative Tricyclic screen, urine (test code = 05866-3) Negative Cannabinoid screen, urine (test code = 3427-2) Negative Drug screen minimum concentration of detectabilityAmphetamines 1000 ng/mLBarbiturates 200 ng/mLBenzodiazepines 300 ng/mLCocaine 300 ng/mLMethadone 300 ng/mLOpiates 300 ng/mLPhencyclidine 25 ng/mLCannabinoids 50 ng/mLTricyclics 1000 ng/mLResults are from screening tests and should only be used for medical evaluation. Drug testing for legal purposes requires definitive (or confirmatory) testing methods, which are available upon request. Contact the laboratory if definitive testing is required. Lab Interpretation (test code = 41600-5) Abnormal Callao MethodjamesUS Pelvic [id number] 20:18:01Hm Interface, Radiology Results - 09/09/2019 8:21 PM CSTEXAMINATION: US PELVIC TRANSABDOMINALCLINICAL HISTORY: pelvic painCOMPARISON: None.TECHNIQU E:Transabdominal sonographic images of the pelvis were obtained. The patient re fused transvaginal examination.FINDINGS:The uterus is 6.6 x 4.6 x 4.7 cm. The e ndometrial strip is 3 mm in thickness. There is no myometrial abnormality.Neith er ovary is visualized. There is no adnexal mass.Impression:Normal uterus. Ovari es not seen. Patient refused transvaginal examination.[facility]-[id number] MethodistUrinalysis screen and microscopy, with reflex to [id number] 17:57:30* Test Item Value Reference Range Interpretation Comments Specimen site (test code = 5687445) Clean catch Color, UA (test code = 5778-6) Shazia Appearance, UA (test code = 5767-9) Turbid Specific gravity, UA (test code = 5811-5) 1.039 1.001-1.030 H pH, UA (test code = 5803-2) 5.0 5.0-9.0 Protein, UA (test code = 67750-0) 1+ Negative A Glucose, UA (test code = 68682-3) Negative Negative Ketones, UA (test code = 2514-8) Trace Negative A Bilirubin, UA (test code = 5770-3) Negative Negative Blood, UA (test code = 5794-3) Negative Negative Nitrite, UA (test code = 5802-4) Negative Negative Urobilinogen, UA (test code = 48858-0) <2.0 <2.0 E.U./dL Leukocyte esterase, UA (test code = 5799-2) Trace Negative A Epithelial cells, UA (test code = 5787-7) >20 /HPF WBC, UA (test code = 5821-4) 15 0- 4 /HPF H RBC, UA (test code = 13767-5) 21 0- 5 /HPF H Bacteria, UA (test code = 83565-0) Few None seen Yeast, UA (test code = 81724-2) None seen Yeast with pseudohyphae, UA (test code = 09645-9) None seen Lab Interpretation (test code = 44344-7) Abnormal [facility] MethodisthCG qualitative, serum [id number] 17:52:38* Test Item Value Reference Range Interpretation Comments hCG qualitative, serum (test code = 8-8) Negative Sensitivity of HCG test: 25 mIU/mL [facility] [id number] 17:44:05* Test Item Value Reference Range Interpretation Comments Sodium (test code = 2951-2) 133 135- 148 mEq/L L Potassium (test code = 2823-3) 3.3 3.5- 5.0 mEq/L L Chloride (test code = 2075-0) 101 98- 112 mEq/L CO2 (test code = 2027-9) 21 24- 31 mEq/L L Anion gap (test code = 57101-1) 11@ANIO 7- 15 mEq/L BUN (test code = 3094-0) 13 mg/dL 6-20 Creatinine (test code = 2160-0) 0.63 mg/dL 0.5-0.9 Glucose (test code = 2345-7) 89 mg/dL 65-99 Calcium (test code = 67868-4) 9.3 mg/dL 8.3-10.2 Protein (test code = 2885-2) 7.4 g/dL 6.3-8.3 Albumin (test code = 1751-7) 4.1 g/dL 3.5-5 A/G ratio (test code = 1759-0) 1.2 0.7-3.8 Alkaline phosphatase (test code = 6768-6) 49 U/L 35-104 AST (test code = 1920-8) 20 U/L 10-35 ALT (test code = 1742-6) 11 U/L 5-50 Total bilirubin (test code = 1974-2) <0.2 0.2-1.2 Lab Interpretation (test code = 49266-3) Abnormal [facility] MethodistLipase [id number] 17:44:05* Test Item Value Reference Range Interpretation Comments Lipase (test code = 3040-3) 11 U/L 13-60 L Lab Interpretation (test code = 83920-0) Abnormal [facility] MethodistEstimated [id number] 17:44:05* Test Item Value Reference Range Interpretation Comments Estimated GFR (test code = 5488) >=90 mL/min/1.73 m2 Catergory Units InterpretationG1 >=90 Normal or highG2 60-89 Mildly nucsicwkhV1y 45-59 Mildly to moderately fhsbxutjeH2i 30-44 Moderately to severely decreasedG4 15-29 Severely decreasedG5 <15 Kidney failureThe eGFR was calculated using the Chronic Kidney Disease Epidemiology Collaboration (CKD-EPI) equation. Interpretation is based on recommendations of the National Kidney Foundation-Kidney Disease Outcomes Quality Initiative (NKF-KDOQI) published in 2014. [facility] MethodistCBC with platelet and [id number] 17:22:01* Test Item Value Reference Range Interpretation Comments WBC (test code = 85427-0) 4.8 4.5- 11.0 k/uL RBC (test code = 91220-1) 3.91 m/uL 4.2-5.5 L HGB (test code = 718-7) 12.1 g/dL 12-16 HCT (test code = 4544-3) 36.5 % 37-47 L MCV (test code = 787-2) 93.4 fL 82-100 MCH (test code = 785-6) 30.9 pg 27-34 MCHC (test code = 786-4) 33.2 g/dL 31-37 RDW - SD (test code = 71670-3) 45.6 fL 37-55 MPV (test code = 88194-4) 11.1 fL 6.9-11 H Platelet count (test code = 56521-8) 255 K/uL 150-400 Nucleated RBC (test code = 24184-1) 0.00 /100 WBC Neutrophils (test code = 39478-1) 48.3 % 39-69 Lymphocytes (test code = 50411-8) 40.9 % 25-45 Monocytes (test code = 75645-5) 7.5 % 0-10 Eosinophils (test code = 32644-0) 2.3 % 0-5 Basophils (test code = 37245-7) 0.8 % 0-1 Immature granulocytes (test code = 65100-5) 0.2 % 0-1 Lab Interpretation (test code = 24950-2) Abnormal [facility], [id number] 13:29:00FINAL REPORT CT of the abdomen and pelvis, with contrast Clinical History: Abdominal pain, acute, nonlocalized Technique: CT of the abdomen and pelvis is performed with intravenous contrast administration. This exam was performed according to our departmental dose optimization program which includes automated exposure control, adjustment of the mA and/or kV according to patient's size and/or use of iterative reconstructive technique. Comparison Film: August 02, 2019 and January 03, 2017 Discussion: Visualized lower thorax is unremarkable. No liver lesion is identified on this noncontrast exam. There is no biliary ductal dilatation, gallbladder is unremarkable. Spleen, pancreas, adrenal glands are also unremarkable. Kidneys demonstrate no mass, hydronephrosis, or radiopaque stone. No evidence of bowel obstruction. A few loops of mildly distended small bowel are seen in the left upper quadrant without clear transition point. Normal appendix. In the pelvis, bladder, uterus and adnexa are unremarkable. Previously seen right adnexal cystic lesion has resolved. There is no ascites, free air, or lymphadenopathy. Osseous structures are intact. Impression: A few loops of mildly distended small bowel in left upper quadrant, nonspecific, correlate clinically for enteritis. Interval resolution of previously seen right adnexal cystic structure. Signed: Sven Longoort Verified Date/Time: 08/17/2019 13 :29:23 Reading Location: [facility] [id number] Ortho Consult Reading Room Electron ically signed by: SVEN LONGO M.D. on 08/17/2019 01:29 PM SCREEN, URINE 2019-08-17 12:40:00* Test Item Value Reference Range Interpretation Comments TEST URINE (BEAKER) (test code = 583) Negative HEPATIC FUNCTION [id number] 12:19:00* Test Item Value Reference Range Interpretation Comments TOTAL PROTEIN (BEAKER) (test code = 770) 6.7 gm/dL 6.0-8.5 Specimen moderately hemolyzed ALBUMIN (BEAKER) (test code = 1145) 3.5 g/dL 3.5-5.0 Specimen moderately hemolyzed BILIRUBIN TOTAL (BEAKER) (test code = 377) < mg/dL 0.1-1.2 Specimen moderately hemolyzed BILIRUBIN DIRECT (BEAKER) (test code = 706) < mg/dL 0.0-0.4 Specimen moderately hemolyzed ALKALINE PHOSPHATASE (BEAKER) (test code = 346) 46 U/L 30-115 AST (SGOT) (BEAKER) (test code = 353) 26 U/L 5-40 Specimen moderately hemolyzed ALT (SGPT) (BEAKER) (test code = 347) 16 U/L 5-50 Specimen moderately hemolyzed Flaker Operator ID - [id number] 12:15:00* Test Item Value Reference Range Interpretation Comments LIPASE (BEAKER) (test code = 749) 29 U/L 6-51 Flaker Operator ID - [id number] METABOLIC [id number] 12:12:00* Test Item Value Reference Range Interpretation Comments SODIUM (BEAKER) (test code = 381) 138 meq/L 135-148 POTASSIUM (BEAKER) (test code = 379) 4.9 meq/L 3.6-5.5 Specimen moderately hemolyzed CHLORIDE (BEAKER) (test code = 382) 112 meq/L 98-106 H CO2 (BEAKER) (test code = 355) 21 meq/L 20-29 BLOOD UREA NITROGEN (BEAKER) (test code = 354) 12 mg/dL 10-26 CREATININE (BEAKER) (test code = 358) 0.63 mg/dL 0.50-1.20 Specimen moderately hemolyzed GLUCOSE RANDOM (BEAKER) (test code = 652) 72 mg/dL 70-110 CALCIUM (BEAKER) (test code = 697) 8.5 mg/dL 8.5-10.5 EGFR (BEAKER) (test code = 1092) 130 mL/min/1.73 sq m ESTIMATED GFR IS NOT ACCURATE CREATININE CLEARANCE IN PREDICTING GLOMERULAR FILTRATION RATE. ESTIMATED GFR IS NOT APPLICABLE FOR DIALYSIS PATIENTS. Flaker Operator ID - [id number] ACID, [id number] 12:07:00* Test Item Value Reference Range Interpretation Comments LACTATE BLOOD VENOUS (2) (BEAKER) (test code = 2872) 0.9 mmol/L 0 .5-2.0 Specimen moderately hemolyzed Flaker Operator ID - [id number] W/PLT COUNT & AUTO [id number] 11:52:00* Test Item Value Reference Range Interpretation Comments WHITE BLOOD CELL COUNT (BEAKER) (test code = 775) 5.1 K/ L 4.0- 10.0 RED BLOOD CELL COUNT (BEAKER) (test code = 761) 3.71 M/ L 4.00-5 .00 L HEMOGLOBIN (BEAKER) (test code = 410) 12.0 GM/DL 12.0-15.5 HEMATOCRIT (BEAKER) (test code = 411) 37.8 % 36.0-46.0 MEAN CORPUSCULAR VOLUME (BEAKER) (test code = 753) 101.9 fL 82. 0-99.0 H MEAN CORPUSCULAR HEMOGLOBIN (BEAKER) (test code = 751) 32.3 pg 27.0-33.0 MEAN CORPUSCULAR HEMOGLOBIN CONC (BEAKER) (test code = 752) 31.7 GM/DL 32.0-36.0 L RED CELL DISTRIBUTION WIDTH (BEAKER) (test code = 412) 13.7 % 12.0-15.0 PLATELET COUNT (BEAKER) (test code = 756) 244 K/CU MM 150-430 MEAN PLATELET VOLUME (BEAKER) (test code = 754) 11.8 fL 6.0-11 .5 H NUCLEATED RED BLOOD CELLS (BEAKER) (test code = 413) 0 /100 WBC 0 -0 NEUTROPHILS RELATIVE PERCENT (BEAKER) (test code = 429) 60 % LYMPHOCYTES RELATIVE PERCENT (BEAKER) (test code = 430) 27 % MONOCYTES RELATIVE PERCENT (BEAKER) (test code = 431) 9 % EOSINOPHILS RELATIVE PERCENT (BEAKER) (test code = 432) 4 % BASOPHILS RELATIVE PERCENT (BEAKER) (test code = 437) 1 % NEUTROPHILS ABSOLUTE COUNT (BEAKER) (test code = 670) 3.03 K/ L 1.80-8.00 LYMPHOCYTES ABSOLUTE COUNT (BEAKER) (test code = 414) 1.38 K/ L 1.48-4.50 L MONOCYTES ABSOLUTE COUNT (BEAKER) (test code = 415) 0.46 K/ L 0. 00-1.30 EOSINOPHILS ABSOLUTE COUNT (BEAKER) (test code = 416) 0.18 K/ L 0.00-0.50 BASOPHILS ABSOLUTE COUNT (BEAKER) (test code = 417) 0.03 K/ L 0. 00-0.20 IMMATURE GRANULOCYTES-RELATIVE PERCENT (BEAKER) (test code = 2801) 0 % 0-0 Blood culture, aerobic & [id number] 03:03:06* Test Item Value Reference Range Interpretation Comments Blood culture isolate (test code = 600-7) No growth after 5 days of incubation. Specimen InformationSpecimen Source: BloodSpecimen Site: Antecubital, left [facility] metabolic [id number] 06:01:21* Test Item Value Reference Range Interpretation Comments Sodium (test code = 2951-2) 137 135- 148 mEq/L Potassium (test code = 2823-3) 4.1 3.5- 5.0 mEq/L Chloride (test code = 2075-0) 109 98- 112 mEq/L CO2 (test code = 2028-9) 20 24- 31 mEq/L L Anion gap (test code = 15279-4) 8@ANIO 7- 15 mEq/L BUN (test code = 3094-0) 10 mg/dL 6-20 Creatinine (test code = 2160-0) 0.67 mg/dL 0.5-0.9 Glucose (test code = 2345-7) 94 mg/dL 65-99 Calcium (test code = 11915-3) 8.3 mg/dL 8.3-10.2 Lab Interpretation (test code = 95656-1) Abnormal [facility] MethodistLactic acid level, SEPSIS - Now and repeat 2x every 3 hours 2019-08-08 03:02:51* Test Item Value Reference Range Interpretation Comments Lactic acid (test code = 51743-1) 0.7 mmol/L 0.5-2.2 [facility] MethodistU/S, PELVIS, WITH ENDOVAG AND [id number] 02:04:00Reason for exam:->abd pain; eval for torsionFINAL REPORT HISTORY: Pelvic pain Pelvic ultrasound dated 08/03/2019 Comment: Real-time transpelvic and transvaginal ultrasound were performed. Color and spectral Doppler interrogation of the adnexa was performed to evaluate ovarian blood flow. The uterus measures 9.2 x 4.8 x 6.5 cm. Endometrial stripe measures 0.8 cm in thickness. Both endometrium and myometrium are unremarkable. Right ovary measures 4.6 x 3.6 x 4.9 cm. There is a 4.1 x 3.9 x 2.7 cm right ovarian cyst. Left ovary measures 3.6 x 2.6 x 2.3 cm. No mass lesion is seen in the adnexa. There was normal spectral and color Doppler signal to both ovaries. No free fluid is seen in the cul-de-sac. Impression: 4.1 cm right ovarian cyst without evidence of right ovarian torsion. This cyst is almost certainly benign and no imaging follow-up for this finding is recommended. Signed: Leigh Pichardo MDReport Verified Date/Time: 08/03/2019 02:04:08 , [id number] 23:51:00 Reason for exam:->lower abd pain, vomitingFINAL REPORT CT, ABDOMEN \\T\\ PELVIS, WITH IV CONTRAST INDICATION: lower abd pain, vomitinglower abd pain COMPARISON: CT abdomen pelvis dated 01-18. TECHNIQUE:Post contrast abdomen and pelvis CT. Coronal and sagittal reformatted images obtained. DOSE REDUCTION: Dose modulation, iterative reconstruction, and/or weight-based adjustment of the mA/kV was utilized to reduce the radiation dose to as low as reasonably achievable. FINDINGS: Lower thorax: Bilateral lower lobe dependent atelectasis. No pleural effusion. The heart is normal in size. Liver: No parenchymal abnormality.Gallbladder and biliary tree: No ductal dilation or stones.Pancreas: No acute findings.Spleen: No acute findingsAdrenal Glands: No acute findings.Kidneys and ureters: No hydronephrosis or nephrolithiasis.Bladder and reproductive organs: The bladder is unremarkable. The uterus is age- appropriate. 1.7 cm left adnexal cyst is somewhat certainly benign and requires no additional follow-up. There is a 3.9 cm right adnexal cyst. Stomach and Duodenum: No significant findings.Small and large intestine: Normal calibers.Ap pendix: Normal. Major vascular structures: Normal aortic caliber.Peritoneum and retroperitoneum: No free air, fluid or adenopathy. Skeleton: No acute bony a bnormality.Additional findings: None. IMPRESSION: 3.9 cm right adnexal cystic structure recommend further evaluation with ultrasound in 6-12 weeks to ensure resolution. Of note size the cyst does put patient at risk for ovarian torsion w hich is clinical diagnosis, correlate with history and exam findings. Otherwise no acute abnormality in the abdomen or pelvis. Signed: Jil Haines MDRep ort Verified Date/Time: 08/02/2019 23:51:24 REHENSIVE METABOLIC PANEL 2019-08-02 22:46:00* Test Item Value Reference Range Interpretation Comments TOTAL PROTEIN (BEAKER) (test code = 770) 7.3 gm/dL 6.0-8.5 ALBUMIN (BEAKER) (test code = 1145) 4.0 g/dL 3.5-5.0 ALKALINE PHOSPHATASE (BEAKER) (test code = 346) 51 U/L 30-115 BILIRUBIN TOTAL (BEAKER) (test code = 377) < mg/dL 0.1-1.2 SODIUM (BEAKER) (test code = 381) 137 meq/L 135-148 POTASSIUM (BEAKER) (test code = 379) 4.0 meq/L 3.6-5.5 CHLORIDE (BEAKER) (test code = 382) 106 meq/L 98-106 CO2 (BEAKER) (test code = 355) 24 meq/L 20-29 BLOOD UREA NITROGEN (BEAKER) (test code = 354) 13 mg/dL 10-26 CREATININE (BEAKER) (test code = 358) 0.91 mg/dL 0.50-1.20 GLUCOSE RANDOM (BEAKER) (test code = 652) 86 mg/dL 70-110 CALCIUM (BEAKER) (test code = 697) 9.5 mg/dL 8.5-10.5 AST (SGOT) (BEAKER) (test code = 353) 12 U/L 5-40 ALT (SGPT) (BEAKER) (test code = 347) 9 U/L 5-50 EGFR (BEAKER) (test code = 1092) 85 mL/min/1.73 sq m ESTIMATED GFR IS NOT ACCURATE CREATININE CLEARANCE IN PREDICTING GLOMERULAR FILTRATION RATE. ESTIMATED GFR IS NOT APPLICABLE FOR DIALYSIS PATIENTS. [id number] 22:46:00* Test Item Value Reference Range Interpretation Comments LIPASE (BEAKER) (test code = 749) 31 U/L 6-51 URINALYSIS W/ [id number] 22:05:00* Test Item Value Reference Range Interpretation Comments COLOR (BEAKER) (test code = 470) Yellow CLARITY (BEAKER) (test code = 469) Clear SPECIFIC GRAVITY UA (BEAKER) (test code = 468) 1.020 1.001-1 .035 PH UA (BEAKER) (test code = 467) 7.0 5.0-8.0 PROTEIN UA (BEAKER) (test code = 464) Negative Negative GLUCOSE UA (BEAKER) (test code = 365) Negative Negative KETONES UA (BEAKER) (test code = 371) Negative Negative BILIRUBIN UA (BEAKER) (test code = 462) Negative Negative BLOOD UA (BEAKER) (test code = 461) Negative Negative NITRITE UA (BEAKER) (test code = 465) Negative Negative LEUKOCYTE ESTERASE UA (BEAKER) (test code = 466) Negative Negat karla UROBILINOGEN UA (BEAKER) (test code = 463) 0.2 mg/dL 0.2-1.0 BACTERIA (BEAKER) (test code = 517) Few AMORPHOUS CRYSTALS (BEAKER) (test code = 1584) Few RBC UA-MANUAL (BEAKER) (test code = 1659) None Seen /HPF WBC UA-MANUAL (BEAKER) (test code = 1661) <5 /HPF SOURCE(BEAKER) (test code = 1614) SQUAMOUS EPITHELIAL MANUAL (BEAKER) (test code = 0833) 50-100 /HPF This is an appended report. These results have been appended to a previously final verified report. SCREEN, [id number] 21:18:00* Test Item Value Reference Range Interpretation Comments TEST URINE (BEAKER) (test code = 583) Negative CBC W/PLT COUNT & AUTO [id number] 21:13:00* Test Item Value Reference Range Interpretation Comments WHITE BLOOD CELL COUNT (BEAKER) (test code = 775) 6.2 K/ L 4.0- 10.0 RED BLOOD CELL COUNT (BEAKER) (test code = 761) 4.31 M/ L 4.00-5 .00 HEMOGLOBIN (BEAKER) (test code = 410) 13.4 GM/DL 12.0-15.5 HEMATOCRIT (BEAKER) (test code = 411) 43.0 % 36.0-46.0 MEAN CORPUSCULAR VOLUME (BEAKER) (test code = 753) 99.8 fL 82. 0-99.0 H MEAN CORPUSCULAR HEMOGLOBIN (BEAKER) (test code = 751) 31.1 pg 27.0-33.0 MEAN CORPUSCULAR HEMOGLOBIN CONC (BEAKER) (test code = 752) 31.2 GM/DL 32.0-36.0 L RED CELL DISTRIBUTION WIDTH (BEAKER) (test code = 412) 13.4 % 12.0-15.0 PLATELET COUNT (BEAKER) (test code = 756) 223 K/CU MM 150-430 MEAN PLATELET VOLUME (BEAKER) (test code = 754) 11.4 fL 6.0-11 .5 NUCLEATED RED BLOOD CELLS (BEAKER) (test code = 413) 0 /100 WBC 0 -0 NEUTROPHILS RELATIVE PERCENT (BEAKER) (test code = 429) 54 % LYMPHOCYTES RELATIVE PERCENT (BEAKER) (test code = 430) 35 % MONOCYTES RELATIVE PERCENT (BEAKER) (test code = 431) 7 % EOSINOPHILS RELATIVE PERCENT (BEAKER) (test code = 432) 3 % BASOPHILS RELATIVE PERCENT (BEAKER) (test code = 437) 1 % NEUTROPHILS ABSOLUTE COUNT (BEAKER) (test code = 670) 3.33 K/ L 1.80-8.00 LYMPHOCYTES ABSOLUTE COUNT (BEAKER) (test code = 414) 2.16 K/ L 1.48-4.50 MONOCYTES ABSOLUTE COUNT (BEAKER) (test code = 415) 0.44 K/ L 0. 00-1.30 EOSINOPHILS ABSOLUTE COUNT (BEAKER) (test code = 416) 0.17 K/ L 0.00-0.50 BASOPHILS ABSOLUTE COUNT (BEAKER) (test code = 417) 0.03 K/ L 0. 00-0.20 IMMATURE GRANULOCYTES-RELATIVE PERCENT (BEAKER) (test code = 2801) 0 % 0-0 CBC W/PLT COUNT & AUTO [id number] 20:16:00* Test Item Value Reference Range Interpretation Comments WHITE BLOOD CELL COUNT (BEAKER) (test code = 775) 4.9 K/ L 4.0- 10.0 RED BLOOD CELL COUNT (BEAKER) (test code = 761) 3.94 M/ L 4.00-5 .00 L HEMOGLOBIN (BEAKER) (test code = 410) 12.4 GM/DL 12.0-15.5 HEMATOCRIT (BEAKER) (test code = 411) 37.7 % 36.0-46.0 MEAN CORPUSCULAR VOLUME (BEAKER) (test code = 753) 95.7 fL 82. 0-99.0 MEAN CORPUSCULAR HEMOGLOBIN (BEAKER) (test code = 751) 31.5 pg 27.0-33.0 MEAN CORPUSCULAR HEMOGLOBIN CONC (BEAKER) (test code = 752) 32.9 GM/DL 32.0-36.0 RED CELL DISTRIBUTION WIDTH (BEAKER) (test code = 412) 12.9 % 12.0-15.0 PLATELET COUNT (BEAKER) (test code = 756) 211 K/CU MM 150-430 MEAN PLATELET VOLUME (BEAKER) (test code = 754) 11.9 fL 6.0-11 .5 H NUCLEATED RED BLOOD CELLS (BEAKER) (test code = 413) 0 /100 WBC 0 -0 NEUTROPHILS RELATIVE PERCENT (BEAKER) (test code = 429) 45 % LYMPHOCYTES RELATIVE PERCENT (BEAKER) (test code = 430) 44 % MONOCYTES RELATIVE PERCENT (BEAKER) (test code = 431) 7 % EOSINOPHILS RELATIVE PERCENT (BEAKER) (test code = 432) 3 % BASOPHILS RELATIVE PERCENT (BEAKER) (test code = 437) 1 % NEUTROPHILS ABSOLUTE COUNT (BEAKER) (test code = 670) 2.20 K/ L 1.80-8.00 LYMPHOCYTES ABSOLUTE COUNT (BEAKER) (test code = 414) 2.13 K/ L 1.48-4.50 MONOCYTES ABSOLUTE COUNT (BEAKER) (test code = 415) 0.36 K/ L 0. 00-1.30 EOSINOPHILS ABSOLUTE COUNT (BEAKER) (test code = 416) 0.16 K/ L 0.00-0.50 BASOPHILS ABSOLUTE COUNT (BEAKER) (test code = 417) 0.03 K/ L 0. 00-0.20 IMMATURE GRANULOCYTES-RELATIVE PERCENT (BEAKER) (test code = 2801) 0 % 0-0 (MANUAL DIFFERENTIAL)2019-07-28 20:16:00* Test Item Value Reference Range Interpretation Comments TOTAL COUNTED (BEAKER) (test code = 1351) WBC MORPHOLOGY (BEAKER) (test code = 487) Normal RBC MORPHOLOGY (BEAKER) (test code = 762) Normal HYPOGRANULAR PLT(BEAKER) (test code = 2157) Present COMPREHENSIVE METABOLIC [id number] 19:38:00* Test Item Value Reference Range Interpretation Comments TOTAL PROTEIN (BEAKER) (test code = 770) 7.7 gm/dL 6.0-8.5 Specimen markedly hemolyzed ALBUMIN (BEAKER) (test code = 1145) 3.9 g/dL 3.5-5.0 Specimen markedly hemolyzed ALKALINE PHOSPHATASE (BEAKER) (test code = 346) 44 U/L 30-115 BILIRUBIN TOTAL (BEAKER) (test code = 377) < mg/dL 0.1-1.2 Specimen markedly hemolyzed SODIUM (BEAKER) (test code = 381) 137 meq/L 135-148 POTASSIUM (BEAKER) (test code = 379) 5.3 meq/L 3.6-5.5 Specimen markedly hemolyzed CHLORIDE (BEAKER) (test code = 382) 110 meq/L 98-106 H CO2 (BEAKER) (test code = 355) 20 meq/L 20-29 BLOOD UREA NITROGEN (BEAKER) (test code = 354) 11 mg/dL 10-26 CREATININE (BEAKER) (test code = 358) 0.71 mg/dL 0.50-1.20 Specimen markedly hemolyzed GLUCOSE RANDOM (BEAKER) (test code = 652) 98 mg/dL 70-110 CALCIUM (BEAKER) (test code = 697) 8.6 mg/dL 8.5-10.5 AST (SGOT) (BEAKER) (test code = 353) 43 U/L 5-40 H Specimen markedly hemolyzed ALT (SGPT) (BEAKER) (test code = 347) 12 U/L 5-50 Specimen markedly hemolyzed EGFR (BEAKER) (test code = 1092) 114 mL/min/1.73 sq m ESTIMATED GFR IS NOT ACCURATE CREATININE CLEARANCE IN PREDICTING GLOMERULAR FILTRATION RATE. ESTIMATED GFR IS NOT APPLICABLE FOR DIALYSIS PATIENTS. [id number] 19:38:00* Test Item Value Reference Range Interpretation Comments LIPASE (BEAKER) (test code = 749) 22 U/L 6-51 URINALYSIS W/ [id number] 19:30:00* Test Item Value Reference Range Interpretation Comments COLOR (BEAKER) (test code = 470) Yellow CLARITY (BEAKER) (test code = 469) Slightly Cloudy SPECIFIC GRAVITY UA (BEAKER) (test code = 468) >= 1.001-1 .035 PH UA (BEAKER) (test code = 467) 6.0 5.0-8.0 PROTEIN UA (BEAKER) (test code = 464) Negative Negative GLUCOSE UA (BEAKER) (test code = 365) Negative Negative KETONES UA (BEAKER) (test code = 371) Negative Negative BILIRUBIN UA (BEAKER) (test code = 462) Negative Negative BLOOD UA (BEAKER) (test code = 461) Large Negative A NITRITE UA (BEAKER) (test code = 465) Negative Negative LEUKOCYTE ESTERASE UA (BEAKER) (test code = 466) Negative Negat karla UROBILINOGEN UA (BEAKER) (test code = 463) 0.2 mg/dL 0.2-1.0 BACTERIA (BEAKER) (test code = 517) None Seen MUCUS (BEAKER) (test code = 1574) Moderate RBC UA-MANUAL (BEAKER) (test code = 1659) 20-50 /HPF WBC UA-MANUAL (BEAKER) (test code = 1661) <5 /HPF SQUAMOUS EPITHELIAL MANUAL (BEAKER) (test code = 1663) 5-10 /HPF SOURCE(BEAKER) (test code = 1045) SCREEN, [id number] 19:22:00* Test Item Value Reference Range Interpretation Comments TEST URINE (BEAKER) (test code = 583) Negative - US PELVIC [id number] 15:20:00 Name: KENNETH PLATT : 1985 Age/S: 33 / F [id number] Unit #: [id number] Loc: [place] [address] Phys: Mk Santos MD Acct: [id number] Dis Date: Status: REG ER PHONE #: [phone] Exam Date: 06/22/2019 1450 FAX #: Reason: pelvic pain EXAMS: CPT: [id number] US PELVIC COMPLETE [id number] Site ID: [id number] EXAMINATION: - US TRANSVAGINAL NON OB, - US PELVIC COMPLETE. HISTORY: pelvic pain. COMPARISON: July 07, 2018. FINDINGS: The uterus is 9.1 x 4.6 x 5.1 cm. The endometrial stripe is 9 mm in thickness. The right ovary is 3.8 x 2.2 x 8 cm. The left ovary is 4.1 x 1.4 x 3.7 cm. The ovaries demonstrate symmetric vascularity with color Doppler. Venous waveforms are seen in both ovaries. There are multiple follicles seen in the ovaries up to 2 cm in size some demonstrate internal septation. Septations are seen with one demonstrating central hypoechoic area likely related to a hemorrhagic follicle. No central vascularity seen to suggest a solid lesion. No free fluid is seen. IMPRESSION: Bilateral ovarian prominent follicles with a hemorrhagic follicle suggested in the right ovary. at 1520 Reported and signed by: Julito King MD CC: Philip Mcclain MD; Diane GOTTI; Mk Santos MD Technologist: Filomena Bautista Trnscb Date/Time: 06/22/2019 (1520) Paty PAGE 1 Signed Report Name: KENNETH PLATT : 1985 Age/S: 33 / F [id number] Unit #: [id number] Loc: [place] [address] Phys: Mk Santos MD Acct: [id number] Dis Date: Status: REG ER PHONE #: [phone] Exam Date: 06/22/2019 1455 FAX #: Reason: pelvic pain EXAMS: CPT: [id number] US PELVIC COMPLETE [id number] < Continued> Orig Print D/T: S: 06/22/2019 (5133) Probe: PAGE 2 Signed Report - US TRANSVAGINAL NON [id number] 15:20:00 Name: KENNETH PLATT Brandon : 1985 Age/S: 33 / F [address] Unit #: [id number] Loc: [place] [address] Phys: Mk Santos MD Acct: [id number] Di s Date: Status: REG ER PHONE #: Exam Date: 06/22/2019 1451 FAX #: Reason: pelvic pain EXAMS: CPT: [id number] [place] [address] Site ID: [id number] EXAMINATION: - US TRANSVAGINAL NON OB, - US PELVIC COMPLETE. H ISTORY: pelvic pain. COMPARISON: July 07, 2018. FINDINGS: The uterus is 9.1 x 4.6 x 5.1 cm. The endometrial stripe is 9 m m in thickness. The right ovary is 3.8 x 2.2 x 8 cm. The le ft ovary is 4.1 x 1.4 x 3.7 cm. The ovaries demonstrate symmetric vascula rity with color Doppler. Venous waveforms are seen in both ovaries. There are multiple follicles seen in the ovaries up to 2 cm in size some demonstrate internal septation. Septations are seen with one demo nstrating central hypoechoic area likely related to a hemorrhagic follicle . No central vascularity seen to suggest a solid lesion. No free fluid is seen. IMPRESSION: Bilateral ovarian prominent f ollicles with a hemorrhagic follicle suggested in the right ovary. at 1520 Reported and signed by: Julito King MD CC: Philip martinez MD; Diane GOTTI; Mk Santos MD Technologist: Filomena Bautista Trnscb Date/Time: 06/22/2019 (1520) Paty PAGE 1 Signed Report Name: KENNETH PLATT [place] : 1985 Age/S: 33 / F [id number] Unit #: [id number] Loc: [place] [address] Phys: Mk Santos MD Acct: [id number] Dis Date: Status: REG ER PHONE #: [phone] Exam Date: 06/22/2019 3275 FAX #: Reason: pelvic pain EXAMS: CPT: [id number] [place] [address] < Continued> Orig Print D/T: S: 06/22/2019 (1523) Probe: [id number] PAGE 2 Signed Report UA RFLX MICR CULT IF [id number] 14:19:00* Test Item Value Reference Range Interpretation Comments UA COLOR (test code = COLU) YELLOW discript YEL/STRAW UA APPEARANCE (test code = APPU) CLEAR discript CLEAR UA GLUCOSE DIPSTICK (test code = DGLUU) NEGATIVE mg/dL NEG UA BILIRUBIN DIPSTICK (test code = BILU) NEGATIVE mg/dL NEG UA KETONE DIPSTICK (test code = KETU) NEGATIVE mg/dL NEG UA SPECIFIC GRAVITY (test code = SGU) 1.020 SG 1.005-1.030 UA BLOOD DIPSTICK (test code = KIRTI) NEGATIVE mg/DL NEG UA PH DIPSTICK (test code = GABRIEL) 6.5 pH UNITS 5.0-7.0 UA PROTEIN DIPSTICK (test code = PROU) NEGATIVE mg/dL NEG UA UROBILINIOGEN DIPSTICK (test code = URO) 0.2 mg/dL <2.0 UA NITRITE DIPSTICK (test code = BLU) NEGATIVE SCREEN NEG UA LEUKOCYTE ESTERASE DIPSTICK (test code = LEUU) NEGATIVE Leuk/mcL NEGATIVE UA CULTURE NEEDED? (test code = UACULT) NO, WBC<10 Criteria Culture CHK SOURCE OF URINE: CLEAN CATCHIndication for culture: Dysuria/FrequencyDRUGS OF ABUSE SCREEN [id number] 14:19:00* Test Item Value Reference Range Interpretation Comments URN COCAINE (test code = COCAURN) POSITIVE SCcutoff <300 NG/ML A URN CANNABINOIDS (test code = CANNABURN) NEGATIVE SCcutoff <50 NG/M L URN AMPHETAMINE (test code = AMPHETURN) NEGATIVE SCcutoff <1000 NG/ ML URN BARBITURATE (test code = BARBITURN) NEGATIVE SCcutoff <200 NG/M L URN BENZODIAZEPINE (test code = BENZOURN) NEGATIVE SCcutoff <200 NG /ML URN OPIATES (test code = OPIATURN) POSITIVE SCcutoff <2000 NG/ML A URN PHENCYCLIDINE (PCP) (test code = PHENCURN) NEGATIVE SCcutoff <2 5 NG/ML URN METHADONE (test code = METHAURN) NEGATIVE SCcutoff <300 NG/ML SOURCE OF URINE: CLEAN CATCHIndication for culture: Dysuria/FrequencyBASIC METABOLIC [id number] 14:14:00* Test Item Value Reference Range Interpretation Comments SODIUM (test code = NA) 140 mmol/L 134-147 N POTASSIUM (test code = K) 4.7 mmol/L 3.4-5.0 N CHLORIDE (test code = CL) 111 mmol/L 100-108 H CARBON DIOXIDE (test code = CO2) 23 mmol/L 21-32 N ANION GAP (test code = GAP) 6.0 GAP calc 4.0-15.0 N GLUCOSE (test code = GLU) 84 MG/DL 70-110 N BLOOD UREA NITROGEN (test code = BUN) 14 MG/DL 7-18 N GLOMERULAR FILTRATION RATE (test code = GFR) >=60 max estimate estG FR >60 CREATININE (test code = CREAT) 0.7 MG/DL 0.6-1.0 N CALCIUM (test code = CA) 8.4 MG/DL 8.5-10.1 L HEPATIC FUNCTION [id number] 14:14:00* Test Item Value Reference Range Interpretation Comments TOTAL PROTEIN (test code = PROT) 7.4 G/DL 6.4-8.2 N ALBUMIN (test code = ALB) 3.6 G/DL 3.4-5.0 N BILIRUBIN TOTAL (test code = BILT) 0.20 MG/DL 0.2-1.2 N BILIRUBIN DIRECT (test code = BILD) < 0.10 MG/DL 0.00-0.30 N BILIRUBIN INDIRECT (test code = BILIND) 0.10 MG/DL 0.2-1.2 L SGOT/AST (test code = AST) 13 Unit/L 15-37 L SGPT/ALT (test code = ALT) 14 Unit/L 12-78 N ALKALINE PHOSPHATASE TOTAL (test code = ALKP) 54 Unit/L 45-117 N [id number] 14:14:00* Test Item Value Reference Range Interpretation Comments LIPASE (test code = LIP) 83 Unit/L 114-286 L CBC W/AUTO [id number] 14:08:00* Test Item Value Reference Range Interpretation Comments WHITE BLOOD CELL (test code = WBC) 5.3 K/mm3 3.5-11.0 N RED BLOOD CELL (test code = RBC) 3.80 M/mm3 4.70-6.10 L HEMOGLOBIN (test code = HGB) 12.0 G/DL 10.4-14.9 N HEMATOCRIT (test code = HCT) 36.0 % 31.5-44.1 N MEAN CELL VOLUME (test code = MCV) 94.7 Fl 84.5-98.6 N MEAN CELL HGB (test code = MCH) 31.6 pg 27.0-34.2 N MEAN CELL HGB CONCETRATION (test code = MCHC) 33.3 G/DL 31.5-34. 0 N RED CELL DISTRIBUTION WIDTH (test code = RDW) 13.2 SD 11.5-14. 5 N PLATELET COUNT (test code = PLT) 232.0 K/mm3 150-450 N MEAN PLATELET VOLUME (test code = MPV) 10.90 fL 7.0-10.5 H NEUTROPHIL % (test code = NT%) 54.5 % 40-76 N LYMPHOCYTE % (test code = LY%) 33.6 % 20.5-51.1 N MONOCYTE % (test code = MO%) 8.5 % 1.7-9.3 N EOSINOPHIL % (test code = EO%) 3.0 % 0.0-6.0 N BASOPHIL % (test code = BA%) 0.4 % 0.0-2.0 N NEUTROPHIL # (test code = NT#) 2.88 K/mm3 1.8-7.6 N LYMPHOCYTE # (test code = LY#) 1.8 K/mm3 0.6-3.2 N MONOCYTE # (test code = MO#) 0.5 K/mm3 0.3-1.1 N EOSINOPHIL # (test code = EO#) 0.2 K/mm3 0.0-0.4 N BASOPHIL # (test code = BA#) 0.0 K/mm3 0.0-0.1 N MANUAL DIFF REQUIRED (test code = MDIFF) NO DIFF/SCN CRITERIA BASIC METABOLIC [id number] 14:08:00* Test Item Value Reference Range Interpretation Comments SODIUM (test code = NA) 140 mmol/L 134-147 N POTASSIUM (test code = K) 4.7 mmol/L 3.4-5.0 N CHLORIDE (test code = CL) 111 mmol/L 100-108 H CARBON DIOXIDE (test code = CO2) 23 mmol/L 21-32 N ANION GAP (test code = GAP) 6.0 GAP calc 4.0-15.0 N GLUCOSE (test code = GLU) 84 MG/DL 70-110 N BLOOD UREA NITROGEN (test code = BUN) 14 MG/DL 7-18 N GLOMERULAR FILTRATION RATE (test code = GFR) estGFR >60 CREATININE (test code = CREAT) MG/DL 0.6-1.0 CALCIUM (test code = CA) 8.4 MG/DL 8.5-10.1 L HEPATIC FUNCTION [id number] 14:08:00* Test Item Value Reference Range Interpretation Comments TOTAL PROTEIN (test code = PROT) G/DL 6.4-8.2 ALBUMIN (test code = ALB) G/DL 3.4-5.0 BILIRUBIN TOTAL (test code = BILT) MG/DL 0.2-1.2 BILIRUBIN DIRECT (test code = BILD) MG/DL 0.00-0.30 BILIRUBIN INDIRECT (test code = BILIND) MG/DL 0.2-1.2 SGOT/AST (test code = AST) Unit/L 15-37 SGPT/ALT (test code = ALT) Unit/L 12-78 ALKALINE PHOSPHATASE TOTAL (test code = ALKP) Unit/L 45-117 [id number] 14:08:00* Test Item Value Reference Range Interpretation Comments LIPASE (test code = LIP) 83 Unit/L 114-286 L UA RFLX MICR CULT IF [id number] 14:02:00* Test Item Value Reference Range Interpretation Comments UA COLOR (test code = COLU) YELLOW discript YEL/STRAW UA APPEARANCE (test code = APPU) CLEAR discript CLEAR UA GLUCOSE DIPSTICK (test code = DGLUU) NEGATIVE mg/dL NEG UA BILIRUBIN DIPSTICK (test code = BILU) NEGATIVE mg/dL NEG UA KETONE DIPSTICK (test code = KETU) NEGATIVE mg/dL NEG UA SPECIFIC GRAVITY (test code = SGU) 1.020 SG 1.005-1.030 UA BLOOD DIPSTICK (test code = KIRTI) NEGATIVE mg/DL NEG UA PH DIPSTICK (test code = GABRIEL) 6.5 pH UNITS 5.0-7.0 UA PROTEIN DIPSTICK (test code = PROU) NEGATIVE mg/dL NEG UA UROBILINIOGEN DIPSTICK (test code = URO) 0.2 mg/dL <2.0 UA NITRITE DIPSTICK (test code = BLU) NEGATIVE SCREEN NEG UA LEUKOCYTE ESTERASE DIPSTICK (test code = LEUU) NEGATIVE Leuk/mcL NEGATIVE UA CULTURE NEEDED? (test code = UACULT) Criteria Culture CHK SOURCE OF URINE: CLEAN CATCHIndication for culture: Dysuria/FrequencyDRUGS OF ABUSE SCREEN [id number] 14:02:00* Test Item Value Reference Range Interpretation Comments URN COCAINE (test code = COCAURN) SCcutoff <300 NG/ML URN CANNABINOIDS (test code = CANNABURN) SCcutoff <50 NG/ML URN AMPHETAMINE (test code = AMPHETURN) SCcutoff <1000 NG/ML URN BARBITURATE (test code = BARBITURN) SCcutoff <200 NG/ML URN BENZODIAZEPINE (test code = BENZOURN) SCcutoff <200 NG/ML URN OPIATES (test code = OPIATURN) SCcutoff <2000 NG/ML URN PHENCYCLIDINE (PCP) (test code = PHENCURN) SCcutoff <25 NG/ ML URN METHADONE (test code = METHAURN) SCcutoff <300 NG/ML SOURCE OF URINE: CLEAN CATCHIndication for culture: Dysuria/FrequencyUA RFLX MICR CULT IF [id number] 14:02:00* Test Item Value Reference Range Interpretation Comments UA COLOR (test code = COLU) YELLOW discript YEL/STRAW UA APPEARANCE (test code = APPU) CLEAR discript CLEAR UA GLUCOSE DIPSTICK (test code = DGLUU) NEGATIVE mg/dL NEG UA BILIRUBIN DIPSTICK (test code = BILU) NEGATIVE mg/dL NEG UA KETONE DIPSTICK (test code = KETU) NEGATIVE mg/dL NEG UA SPECIFIC GRAVITY (test code = SGU) 1.020 SG 1.005-1.030 UA BLOOD DIPSTICK (test code = KIRTI) NEGATIVE mg/DL NEG UA PH DIPSTICK (test code = GABRIEL) 6.5 pH UNITS 5.0-7.0 UA PROTEIN DIPSTICK (test code = PROU) NEGATIVE mg/dL NEG UA UROBILINIOGEN DIPSTICK (test code = URO) 0.2 mg/dL <2.0 UA NITRITE DIPSTICK (test code = BLU) NEGATIVE SCREEN NEG UA LEUKOCYTE ESTERASE DIPSTICK (test code = LEUU) NEGATIVE Leuk/mcL NEGATIVE UA CULTURE NEEDED? (test code = UACULT) NO, WBC<10 Criteria Culture CHK SOURCE OF URINE: CLEAN CATCHIndication for culture: Dysuria/FrequencyDRUGS OF ABUSE SCREEN [id number] 14:02:00* Test Item Value Reference Range Interpretation Comments URN COCAINE (test code = COCAURN) SCcutoff <300 NG/ML URN CANNABINOIDS (test code = CANNABURN) SCcutoff <50 NG/ML URN AMPHETAMINE (test code = AMPHETURN) SCcutoff <1000 NG/ML URN BARBITURATE (test code = BARBITURN) SCcutoff <200 NG/ML URN BENZODIAZEPINE (test code = BENZOURN) SCcutoff <200 NG/ML URN OPIATES (test code = OPIATURN) SCcutoff <2000 NG/ML URN PHENCYCLIDINE (PCP) (test code = PHENCURN) SCcutoff <25 NG/ ML URN METHADONE (test code = METHAURN) SCcutoff <300 NG/ML SOURCE OF URINE: CLEAN CATCHIndication for culture: Dysuria/FrequencyHCG POC 2019-06-22 13:54:00* Test Item Value Reference Range Interpretation Comments HCG POC (test code = HCGPOC) <5 IU/L <5.0 N <5.0 IU/L NEGATIVE5.0 - 25.0 IU/L INDETERMINATE>25.0 POSITIVE Detection of low levels of hCG does not rule out .Because hCG values double approximately every 48 hours in anormal , patients with low levels of hCG should beresampled and retested after 48 hours Gram [id number] 05:46:53Gram stain resultNo WBC'sMany Gram variable rods Comment: Specimen InformationSpecimen Source: UrineSpecimen Site: Clean [facility] Pelvic [id number] 00:28:38Hm Interface, Radiology Results Incoming - 06/21/2019 12:31 AM CSTEXAMINATION: US PELVIC TRANSVAGINALCLINICAL HISTORY: Pelvic pain 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 Sagittal an d coronal computerized reformatted images were also obtained.CT imaging was perf ormed with iterative reconstruction technique and/or automated exposure control to reduce radiation dose.COMPARISON: 04/06/2019IMPRESSION:Liver, gallbladder, mon creas, adrenal glands spleen are normal.Kidneys, ureters and bladder are normal. Arising from the right ovary, there is a complex cystic structure measuring 1 cm , measuring greater density than simple fluid. This demonstrates somewhat collap sed appearance and there may have been recent rupture. Arising from left ovary, a 1.5 cm complex cystic structure is also seen. These findings may represent hem orrhagic ovarian cysts or endometriomas and would be better assessed with dedica rafy pelvic ultrasound. In addition, a 2 cm cyst is seen of the left ovary.Trace fluid is seen in the pelvis. No free intraperitoneal air.Moderate colonic divert iculosis is seen without diverticulitis. Moderate quantity of fecal material see n of the large bowel. The appendix is normal. No gastrointestinal tract obstruct ion.No acute osseous abnormalities.Summary:Complex cystic structures are seen of the ovaries bilaterally, which may represent hemorrhagic ovarian cysts or endom etriomas. This would better assessed with dedicated pelvic ultrasound. The compl ex cystic structure in the right ovary has a somewhat collapsed appearance and t here may have been recent rupture.[facility]-[id number] [facility] qualitative, urine [id number] 21:21:36* Test Item Value Reference Range Interpretation Comments hCG qualitative, urine (test code = 2106-3) Negative Sensitivity of HCG test: 25 mIU/mL Deric AmaralT4, [id number] 08:11:09* Test Item Value Reference Range Interpretation Comments T4, free (test code = 3024-7) 0.9 ng/dL 0.8-1.8 Deric DaveyistThyroid stimulating [id number] 08:11:09* Test Item Value Reference Range Interpretation Comments TSH (test code = 3016-3) 1.26 0.55- 4.78 uIU/mL Deric DaveyistECG 12 [id number] 21:29:36* Test Item Value Reference Range Interpretation Comments Ventricular rate (test code = 253) 74 Atrial rate (test code = 255) 74 NJ interval (test code = 266) 144 QRSD interval (test code = 260) 72 QT interval (test code = 264) 392 QTC interval (test code = 265) 435 P axis 1 (test code = 267) 67 QRS axis 1 (test code = 268) 54 T wave axis (test code = 270) 48 EKG impression (test code = 273) Normal sinus rhythm-P oor R wave progression- Cannot rule out Anterior infarct (cited on or before 27-APR-2019)-Abnormal ECG- In automated comparison with ECG of 27-APR-2019 14:51,-No significant change was found- Leos MethodistSalicylate [id number] 15:31:38* Test Item Value Reference Range Interpretation Comments Salicylate (test code = 4024-6) <0.4 mg/dL Therapeutic Range: 5 - 30 mg/dL Leos MethodistAcetaminophen [id number] 15:31:37* Test Item Value Reference Range Interpretation Comments Acetaminophen level (test code = 3298-7) <15.9 ug/mL Therapeutic 10- 30 ug/mL Possible Toxicity 150-200 ug/mL Probable Toxicity >200 ug/mL Deric MethodistAlcohol level, [id number] 15:29:20* Test Item Value Reference Range Interpretation Comments Alcohol percent (test code = 5643-2) 0.014 % mg/dL Normal None DetectedLegal Intoxication in [place] 80 mg/dL (0.08%) - Whole BloodToxic Concentration 200 mg/dL (0.2%)Potentially Fatal 350 - 500 mg/dL (0.35 - 0.5%) [facility], total ([facility]K)2019-05-27 15:29:20* Test Item Value Reference Range Interpretation Comments Creatine kinase (test code = 2157-6) 55 U/L 35-200 [facility] ED Preliminary Interpretation - Not an [id number] 14:09:19Rosales Goode DO 06/17/2019 6:04 [facility] ED Preliminary Interpretation - Not an OrderPerformed by: Rosales Goode DOAuthorized by: Rosales Goode DO ECG reviewed by ED Physician in the absence of a integrated campaign manager: yes Rate: ECG rate: 74 ECG rate assessment: normal Rhythm: Rhythm: sinus rhythm QRS: QRS intervals: Normal (72)Comments: NJ interval 144QT/QTc 392/435[facility] MethodistHemoglobin [id number] 10:07:24* Test Item Value Reference Range Interpretation Comments Hemoglobin A1C (test code = 14314-2) 4.6 % 4-5.6 HbA1c cutoffs for diagnosing diabetes:4.0% - 5.6% = normal5.7% - 6.4% = increased risk for diabetes (prediabetes) >=6.5% = diabetes Goals for glycemic control (ADA 2016)< 7.0% Target for non adults with diabetes. More or less stringent targets may be appropriate for individual patients. <7.5% Target for Children and adolescents with type 1 diabetes. Callao MethodistLipid [id number] 23:55:52* Test Item Value Reference Range Interpretation Comments Cholesterol (test code = 2093-3) 142 mg/dL <200 Triglycerides (test code = 2571-8) 110 mg/dL <150 HDL cholesterol (test code = 2085-9) 61 mg/dL >40 LDL cholesterol (test code = 2089-1) 68 mg/dL <100 Result obtained by direct LDL measurement Lipid panel interpretation (test code = 60514-4) SeeBelow Total Cholesterol (mg/dL) <200 Desirable 200-239 Borderline-high >=240 High Triglycerides (mg/dL) <150 Normal 150-199 Borderline-high 200-499 High >=500 Very high HDL Cholesterol (mg/dL) <40 Low (male) <40 Low (female) LDL Cholesterol (mg/dL) <100 Optimal 100-129 Near or above optimal 130-159 Borderline-high 160-189 High >=190 Very high Risk Catergories that modify LDL goals.Risk Catergories LDL goal (mg/dL)CHD and CHD risk equivalent <100 (10-year risk >20%)Multiple (2+) risk factors <130 (10-year risk =<20%)0-1 risk factors <160 (<10-year risk) Defining levels of lipids in metabolic syndromeTriglycerides >=150 mg/dLHDL Cholesterol Men <40 mg/dL Women <40 mg/dL Non-HDL cholesterol is a second target for therapy in personswith high triglycerides (>=200 mg/dL) Deric AmaralU/S, PELVIS, WITH ENDOVAG AND [id number] 02:58:00Reason for exam:->PELVIC PAINFINAL REPORT U/S, PELVIS, WITH ENDOVAG AND DOPPLER CLINICAL INDICATION: PELVIC PAIN COMPARISON: None TECHNIQUE: Ultrasound imaging of the pelvis was performed transabdominally through a distended urinary bladder followed by transvaginal examination postvoid. Color and spectral Doppler evaluation was also performed. FINDINGS: Uterus Orientation: Anteverted Size: 9.7 x 4.7 x 6.3 cm Masses: None Endometrial thickness: 0.6 cm. Cervix: Unremarkable Adnexa: Right Ovary: Size: 3.1 x 2.1 x 2.8cm. Echogenicity: Normal Vascular flow: Preserved Left Ovary:Not identified. Free fluid: Trace free fluid in the pelvic cul-de-sac which can be physiologic. Additional findings: None IMPRESSION: Left ovary is not identified otherwise unremarkable sonographic examination of the pelvis. Signed: Jil Haines [facility] Verified Date/Time: 04/17/2019 02:58:04 EN, [id number] 02:11:00* Test Item Value Reference Range Interpretation Comments TEST URINE (BEAKER) (test code = 583) Negative URINALYSIS W/ [id number] 02:03:00* Test Item Value Reference Range Interpretation Comments COLOR (BEAKER) (test code = 470) Yellow CLARITY (BEAKER) (test code = 469) Clear SPECIFIC GRAVITY UA (BEAKER) (test code = 468) 1.020 1.001-1 .035 PH UA (BEAKER) (test code = 467) 7.0 5.0-8.0 PROTEIN UA (BEAKER) (test code = 464) Negative Negative GLUCOSE UA (BEAKER) (test code = 365) Negative Negative KETONES UA (BEAKER) (test code = 371) Negative Negative BILIRUBIN UA (BEAKER) (test code = 462) Negative Negative BLOOD UA (BEAKER) (test code = 461) Negative Negative NITRITE UA (BEAKER) (test code = 465) Negative Negative LEUKOCYTE ESTERASE UA (BEAKER) (test code = 466) Negative Negat karla UROBILINOGEN UA (BEAKER) (test code = 463) 0.2 mg/dL 0.2-1.0 BACTERIA (BEAKER) (test code = 517) Few RBC UA-MANUAL (BEAKER) (test code = 1659) None Seen /HPF WBC UA-MANUAL (BEAKER) (test code = 1661) <5 /HPF SQUAMOUS EPITHELIAL MANUAL (BEAKER) (test code = 1663) 10-20 /HPF SOURCE(BEAKER) (test code = 2795) WET [id number] 01:07:00* Test Item Value Reference Range Interpretation Comments WBC WET PREP (BEAKER) (test code = 528) No white blood cells seen CLUE CELLS (BEAKER) (test code = 526) Few clue cells seen YEAST WET PREP (BEAKER) (test code = 530) No budding yeast seen TRICH WET PREP (BEAKER) (test code = 531) No Trichomonas seen BACT WET PREP (BEAKER) (test code = 532) Few bacteria seen COMPREHENSIVE METABOLIC [id number] 23:43:00* Test Item Value Reference Range Interpretation Comments TOTAL PROTEIN (BEAKER) (test code = 770) 6.8 gm/dL 6.0-8.5 ALBUMIN (BEAKER) (test code = 1145) 3.8 g/dL 3.5-5.0 ALKALINE PHOSPHATASE (BEAKER) (test code = 346) 53 U/L 30-115 BILIRUBIN TOTAL (BEAKER) (test code = 377) < mg/dL 0.1-1.2 SODIUM (BEAKER) (test code = 381) 139 meq/L 135-148 POTASSIUM (BEAKER) (test code = 379) 4.0 meq/L 3.6-5.5 CHLORIDE (BEAKER) (test code = 382) 109 meq/L 98-106 H CO2 (BEAKER) (test code = 355) 23 meq/L 20-29 BLOOD UREA NITROGEN (BEAKER) (test code = 354) 11 mg/dL 10-26 CREATININE (BEAKER) (test code = 358) 0.76 mg/dL 0.50-1.20 GLUCOSE RANDOM (BEAKER) (test code = 652) 83 mg/dL 70-110 CALCIUM (BEAKER) (test code = 697) 8.3 mg/dL 8.5-10.5 L AST (SGOT) (BEAKER) (test code = 353) 13 U/L 5-40 ALT (SGPT) (BEAKER) (test code = 347) 10 U/L 5-50 EGFR (BEAKER) (test code = 1092) 105 mL/min/1.73 sq m ESTIMATED GFR IS NOT ACCURATE CREATININE CLEARANCE IN PREDICTING GLOMERULAR FILTRATION RATE. ESTIMATED GFR IS NOT APPLICABLE FOR DIALYSIS PATIENTS. [id number] 23:43:00* Test Item Value Reference Range Interpretation Comments LIPASE (BEAKER) (test code = 749) 14 U/L 6-51 CBC W/PLT COUNT & AUTO [id number] 23:28:00* Test Item Value Reference Range Interpretation Comments WHITE BLOOD CELL COUNT (BEAKER) (test code = 775) 6.5 K/ L 4.0- 10.0 RED BLOOD CELL COUNT (BEAKER) (test code = 761) 3.86 M/ L 4.00-5 .00 L HEMOGLOBIN (BEAKER) (test code = 410) 11.5 GM/DL 12.0-15.5 L HEMATOCRIT (BEAKER) (test code = 411) 36.0 % 36.0-46.0 MEAN CORPUSCULAR VOLUME (BEAKER) (test code = 753) 93.3 fL 82. 0-99.0 MEAN CORPUSCULAR HEMOGLOBIN (BEAKER) (test code = 751) 29.8 pg 27.0-33.0 MEAN CORPUSCULAR HEMOGLOBIN CONC (BEAKER) (test code = 752) 31.9 GM/DL 32.0-36.0 L RED CELL DISTRIBUTION WIDTH (BEAKER) (test code = 412) 13.2 % 12.0-15.0 PLATELET COUNT (BEAKER) (test code = 756) 297 K/CU MM 150-430 MEAN PLATELET VOLUME (BEAKER) (test code = 754) 11.0 fL 6.0-11 .5 NUCLEATED RED BLOOD CELLS (BEAKER) (test code = 413) 0 /100 WBC 0 -0 NEUTROPHILS RELATIVE PERCENT (BEAKER) (test code = 429) 53 % LYMPHOCYTES RELATIVE PERCENT (BEAKER) (test code = 430) 37 % MONOCYTES RELATIVE PERCENT (BEAKER) (test code = 431) 6 % EOSINOPHILS RELATIVE PERCENT (BEAKER) (test code = 432) 3 % BASOPHILS RELATIVE PERCENT (BEAKER) (test code = 437) 1 % NEUTROPHILS ABSOLUTE COUNT (BEAKER) (test code = 670) 3.40 K/ L 1.80-8.00 LYMPHOCYTES ABSOLUTE COUNT (BEAKER) (test code = 414) 2.41 K/ L 1.48-4.50 MONOCYTES ABSOLUTE COUNT (BEAKER) (test code = 415) 0.39 K/ L 0. 00-1.30 EOSINOPHILS ABSOLUTE COUNT (BEAKER) (test code = 416) 0.19 K/ L 0.00-0.50 BASOPHILS ABSOLUTE COUNT (BEAKER) (test code = 417) 0.05 K/ L 0. 00-0.20 IMMATURE GRANULOCYTES-RELATIVE PERCENT (BEAKER) (test code = 2801) 0 % 0-0 [id number] 16:59:00* Test Item Value Reference Range Interpretation Comments LIPASE (BEAKER) (test code = 749) 71 U/L 40-240 BASIC METABOLIC [id number] 16:59:00* Test Item Value Reference Range Interpretation Comments SODIUM (BEAKER) (test code = 381) 139 meq/L 135-148 POTASSIUM (BEAKER) (test code = 379) 4.0 meq/L 3.6-5.5 CHLORIDE (BEAKER) (test code = 382) 107 meq/L 98-106 H CO2 (BEAKER) (test code = 355) 26 meq/L 24-32 BLOOD UREA NITROGEN (BEAKER) (test code = 354) 15 mg/dL 10-26 CREATININE (BEAKER) (test code = 358) 0.68 mg/dL 0.50-1.20 GLUCOSE RANDOM (BEAKER) (test code = 652) 77 mg/dL 70-110 CALCIUM (BEAKER) (test code = 697) 9.0 mg/dL 8.5-10.5 EGFR (BEAKER) (test code = 1092) 119 mL/min/1.73 sq m ESTIMATED GFR IS NOT ACCURATE CREATININE CLEARANCE IN PREDICTING GLOMERULAR FILTRATION RATE. ESTIMATED GFR IS NOT APPLICABLE FOR DIALYSIS PATIENTS. HEPATIC FUNCTION [id number] 16:59:00* Test Item Value Reference Range Interpretation Comments TOTAL PROTEIN (BEAKER) (test code = 770) 7.2 gm/dL 6.0-8.5 ALBUMIN (BEAKER) (test code = 1145) 4.2 g/dL 3.5-5.0 BILIRUBIN TOTAL (BEAKER) (test code = 377) 0.1 mg/dL 0.1-1.2 BILIRUBIN DIRECT (BEAKER) (test code = 706) 0.0 mg/dL 0.0-0.4 ALKALINE PHOSPHATASE (BEAKER) (test code = 346) 60 U/L 30-115 AST (SGOT) (BEAKER) (test code = 353) 24 U/L 5-40 ALT (SGPT) (BEAKER) (test code = 347) 24 U/L 5-50 BLOOD GAS, [id number] 16:53:00* Test Item Value Reference Range Interpretation Comments PH VENOUS (BEAKER) (test code = 701) 7.37 7.32-7.42 PCO2 VENOUS (BEAKER) (test code = 755) 46 mm Hg 41-51 PO2 VENOUS (BEAKER) (test code = 702) 38 mm Hg 25-40 O2 SATURATION VENOUS (BEAKER) (test code = 703) 69.9 % 40.0-7 0.0 HCO3 VENOUS (BEAKER) (test code = 705) 26 mmol/L 21-29 BASE EXCESS VENOUS (BEAKER) (test code = 704) 0.1 mmol/L -2.0-3.0 PATIENT TEMPERATURE (BEAKER) (test code = 1818) 37.0 FIO2 (BEAKER) (test code = 1819) 21 LACTIC ACID, [id number] 16:53:00* Test Item Value Reference Range Interpretation Comments LACTATE BLOOD VENOUS (2) (BEAKER) (test code = 2872) 0.7 mmol/L 0 .5-2.2 CBC W/PLT COUNT & AUTO [id number] 16:45:00* Test Item Value Reference Range Interpretation Comments WHITE BLOOD CELL COUNT (BEAKER) (test code = 775) 6.1 K/ L 4.0- 10.0 RED BLOOD CELL COUNT (BEAKER) (test code = 761) 3.87 M/ L 4.00-5 .00 L HEMOGLOBIN (BEAKER) (test code = 410) 12.0 GM/DL 12.0-15.0 HEMATOCRIT (BEAKER) (test code = 411) 36.4 % 36.0-45.0 MEAN CORPUSCULAR VOLUME (BEAKER) (test code = 753) 94.3 fL 82. 0-99.0 MEAN CORPUSCULAR HEMOGLOBIN (BEAKER) (test code = 751) 31.0 pg 27.0-33.0 MEAN CORPUSCULAR HEMOGLOBIN CONC (BEAKER) (test code = 752) 32.9 GM/DL 32.0-36.0 RED CELL DISTRIBUTION WIDTH (BEAKER) (test code = 412) 12.5 % 10.3-14.2 PLATELET COUNT (BEAKER) (test code = 756) 338 K/CU MM 150-430 MEAN PLATELET VOLUME (BEAKER) (test code = 754) 8.5 fL 6.5-10 .5 NEUTROPHILS RELATIVE PERCENT (BEAKER) (test code = 429) 45 % LYMPHOCYTES RELATIVE PERCENT (BEAKER) (test code = 430) 43 % MONOCYTES RELATIVE PERCENT (BEAKER) (test code = 431) 8 % EOSINOPHILS RELATIVE PERCENT (BEAKER) (test code = 432) 4 % BASOPHILS RELATIVE PERCENT (BEAKER) (test code = 437) 1 % NEUTROPHILS ABSOLUTE COUNT (BEAKER) (test code = 670) 2.72 K/ L 1.80-8.00 LYMPHOCYTES ABSOLUTE COUNT (BEAKER) (test code = 414) 2.61 K/ L 1.48-4.50 MONOCYTES ABSOLUTE COUNT (BEAKER) (test code = 415) 0.47 K/ L 0. 00-1.30 EOSINOPHILS ABSOLUTE COUNT (BEAKER) (test code = 416) 0.22 K/ L 0.00-0.50 BASOPHILS ABSOLUTE COUNT (BEAKER) (test code = 417) 0.04 K/ L 0. 00-0.20 URINALYSIS W/ [id number] 16:19:00* Test Item Value Reference Range Interpretation Comments COLOR (BEAKER) (test code = 470) Yellow CLARITY (BEAKER) (test code = 469) Cloudy SPECIFIC GRAVITY UA (BEAKER) (test code = 468) 1.034 1.001-1 .035 Refractometer. PH UA (BEAKER) (test code = 467) 6.0 5.0-8.0 PROTEIN UA (BEAKER) (test code = 464) 30 mg/dL Negative A GLUCOSE UA (BEAKER) (test code = 365) Negative Negative KETONES UA (BEAKER) (test code = 371) Negative Negative BILIRUBIN UA (BEAKER) (test code = 462) Negative Negative BLOOD UA (BEAKER) (test code = 461) Negative Negative NITRITE UA (BEAKER) (test code = 465) Negative Negative LEUKOCYTE ESTERASE UA (BEAKER) (test code = 466) Negative Negat karla UROBILINOGEN UA (BEAKER) (test code = 463) 0.2 mg/dL 0.2-1.0 BACTERIA (BEAKER) (test code = 517) Many MUCUS (BEAKER) (test code = 1574) Few RBC UA-MANUAL (BEAKER) (test code = 1659) <5 /HPF WBC UA-MANUAL (BEAKER) (test code = 1661) 5-10 /HPF SQUAMOUS EPITHELIAL MANUAL (BEAKER) (test code = 1663) 20-50 /HPF CLUE CELLS SEEN. SOURCE(BEAKER) (test code = 2795) CLUE CELLS SEEN. SCREEN, [id number] 16:12:00* Test Item Value Reference Range Interpretation Comments TEST URINE (BEAKER) (test code = 583) Negative GLUCOSE BEDSIDE [id number] 08:34:00* Test Item Value Reference Range Interpretation Comments GLUCOSE BEDSIDE TESTING (test code = GLUBED) 68 mg/dL 70-110 L BASIC METABOLIC [id number] 06:45:00* Test Item Value Reference Range Interpretation Comments SODIUM (test code = NA) 139 mmol/L 134-147 N POTASSIUM (test code = K) 4.2 mmol/L 3.4-5.0 N CHLORIDE (test code = CL) 109 mmol/L 100-108 H CARBON DIOXIDE (test code = CO2) 21 mmol/L 21-32 N ANION GAP (test code = GAP) 9.0 GAP calc 4.0-15.0 N GLUCOSE (test code = GLU) 80 MG/DL 70-110 N BLOOD UREA NITROGEN (test code = BUN) 17 MG/DL 7-18 N GLOMERULAR FILTRATION RATE (test code = GFR) >=60 max estimate estG FR >60 CREATININE (test code = CREAT) 0.5 MG/DL 0.6-1.0 L CALCIUM (test code = CA) 7.9 MG/DL 8.5-10.1 L CBC W/AUTO [id number] 06:33:00* Test Item Value Reference Range Interpretation Comments WHITE BLOOD CELL (test code = WBC) 4.5 K/mm3 3.5-11.0 N RED BLOOD CELL (test code = RBC) 3.45 M/mm3 4.70-6.10 L HEMOGLOBIN (test code = HGB) 10.9 G/DL 10.4-14.9 N HEMATOCRIT (test code = HCT) 33.6 % 31.5-44.1 N MEAN CELL VOLUME (test code = MCV) 97.4 Fl 84.5-98.6 N MEAN CELL HGB (test code = MCH) 31.6 pg 27.0-34.2 N MEAN CELL HGB CONCETRATION (test code = MCHC) 32.4 G/DL 31.5-34. 0 N RED CELL DISTRIBUTION WIDTH (test code = RDW) 13.3 SD 11.5-14. 5 N PLATELET COUNT (test code = PLT) 196.0 K/mm3 150-450 N MEAN PLATELET VOLUME (test code = MPV) 11.10 fL 7.0-10.5 H NEUTROPHIL % (test code = NT%) 43.4 % 40-76 N LYMPHOCYTE % (test code = LY%) 42.4 % 20.5-51.1 N MONOCYTE % (test code = MO%) 10.0 % 1.7-9.3 H EOSINOPHIL % (test code = EO%) 3.8 % 0.0-6.0 N BASOPHIL % (test code = BA%) 0.4 % 0.0-2.0 N NEUTROPHIL # (test code = NT#) 1.96 K/mm3 1.8-7.6 N LYMPHOCYTE # (test code = LY#) 1.9 K/mm3 0.6-3.2 N MONOCYTE # (test code = MO#) 0.5 K/mm3 0.3-1.1 N EOSINOPHIL # (test code = EO#) 0.2 K/mm3 0.0-0.4 N BASOPHIL # (test code = BA#) 0.0 K/mm3 0.0-0.1 N MANUAL DIFF REQUIRED (test code = MDIFF) NO DIFF/SCN CRITERIA GLUCOSE BEDSIDE [id number] 17:47:00* Test Item Value Reference Range Interpretation Comments GLUCOSE BEDSIDE TESTING (test code = GLUBED) 93 mg/dL 70-110 N GLUCOSE BEDSIDE [id number] 16:55:00* Test Item Value Reference Range Interpretation Comments GLUCOSE BEDSIDE TESTING (test code = GLUBED) 60 mg/dL 70-110 L GLUCOSE BEDSIDE [id number] 12:21:00* Test Item Value Reference Range Interpretation Comments GLUCOSE BEDSIDE TESTING (test code = GLUBED) 71 mg/dL 70-110 N GLUCOSE BEDSIDE [id number] 08:42:00* Test Item Value Reference Range Interpretation Comments GLUCOSE BEDSIDE TESTING (test code = GLUBED) 72 mg/dL 70-110 N BASIC METABOLIC [id number] 07:31:00* Test Item Value Reference Range Interpretation Comments SODIUM (test code = NA) 138 mmol/L 134-147 N POTASSIUM (test code = K) 4.2 mmol/L 3.4-5.0 N CHLORIDE (test code = CL) 108 mmol/L 100-108 N CARBON DIOXIDE (test code = CO2) 24 mmol/L 21-32 N ANION GAP (test code = GAP) 6.0 GAP calc 4.0-15.0 N GLUCOSE (test code = GLU) 92 MG/DL 70-110 N BLOOD UREA NITROGEN (test code = BUN) 17 MG/DL 7-18 N GLOMERULAR FILTRATION RATE (test code = GFR) >=60 max estimate estG FR >60 CREATININE (test code = CREAT) 0.7 MG/DL 0.6-1.0 N CALCIUM (test code = CA) 8.1 MG/DL 8.5-10.1 L CBC W/AUTO [id number] 07:19:00* Test Item Value Reference Range Interpretation Comments WHITE BLOOD CELL (test code = WBC) 4.7 K/mm3 3.5-11.0 N RED BLOOD CELL (test code = RBC) 3.70 M/mm3 4.70-6.10 L HEMOGLOBIN (test code = HGB) 11.6 G/DL 10.4-14.9 N HEMATOCRIT (test code = HCT) 35.3 % 31.5-44.1 N MEAN CELL VOLUME (test code = MCV) 95.4 Fl 84.5-98.6 N MEAN CELL HGB (test code = MCH) 31.4 pg 27.0-34.2 N MEAN CELL HGB CONCETRATION (test code = MCHC) 32.9 G/DL 31.5-34. 0 N RED CELL DISTRIBUTION WIDTH (test code = RDW) 13.6 SD 11.5-14. 5 N PLATELET COUNT (test code = PLT) 233.0 K/mm3 150-450 N MEAN PLATELET VOLUME (test code = MPV) 11.50 fL 7.0-10.5 H NEUTROPHIL % (test code = NT%) 41.9 % 40-76 N LYMPHOCYTE % (test code = LY%) 43.1 % 20.5-51.1 N MONOCYTE % (test code = MO%) 10.1 % 1.7-9.3 H EOSINOPHIL % (test code = EO%) 4.7 % 0.0-6.0 N BASOPHIL % (test code = BA%) 0.2 % 0.0-2.0 N NEUTROPHIL # (test code = NT#) 1.98 K/mm3 1.8-7.6 N LYMPHOCYTE # (test code = LY#) 2.0 K/mm3 0.6-3.2 N MONOCYTE # (test code = MO#) 0.5 K/mm3 0.3-1.1 N EOSINOPHIL # (test code = EO#) 0.2 K/mm3 0.0-0.4 N BASOPHIL # (test code = BA#) 0.0 K/mm3 0.0-0.1 N MANUAL DIFF REQUIRED (test code = MDIFF) NO DIFF/SCN CRITERIA GLUCOSE BEDSIDE [id number] 20:50:00* Test Item Value Reference Range Interpretation Comments GLUCOSE BEDSIDE TESTING (test code = GLUBED) 109 mg/dL 70-110 N GLUCOSE BEDSIDE [id number] 16:51:00* Test Item Value Reference Range Interpretation Comments GLUCOSE BEDSIDE TESTING (test code = GLUBED) 83 mg/dL 70-110 N GLUCOSE BEDSIDE [id number] 12:21:00* Test Item Value Reference Range Interpretation Comments GLUCOSE BEDSIDE TESTING (test code = GLUBED) 85 mg/dL 70-110 N BASIC METABOLIC [id number] 11:44:00* Test Item Value Reference Range Interpretation Comments SODIUM (test code = NA) 138 mmol/L 134-147 N POTASSIUM (test code = K) 3.9 mmol/L 3.4-5.0 N CHLORIDE (test code = CL) 108 mmol/L 100-108 N CARBON DIOXIDE (test code = CO2) 24 mmol/L 21-32 N ANION GAP (test code = GAP) 6.0 GAP calc 4.0-15.0 N GLUCOSE (test code = GLU) 87 MG/DL 70-110 N BLOOD UREA NITROGEN (test code = BUN) 13 MG/DL 7-18 N GLOMERULAR FILTRATION RATE (test code = GFR) >=60 max estimate estG FR >60 CREATININE (test code = CREAT) 0.7 MG/DL 0.6-1.0 N CALCIUM (test code = CA) 8.2 MG/DL 8.5-10.1 L GLUCOSE BEDSIDE [id number] 08:26:00* Test Item Value Reference Range Interpretation Comments GLUCOSE BEDSIDE TESTING (test code = GLUBED) 90 mg/dL 70-110 N COMPREHENSIVE METABOLIC [id number] 07:31:00* Test Item Value Reference Range Interpretation Comments SODIUM (test code = NA) 141 mmol/L 134-147 N POTASSIUM (test code = K) 5.7 mmol/L 3.4-5.0 H CHLORIDE (test code = CL) 112 mmol/L 100-108 H CARBON DIOXIDE (test code = CO2) 18 mmol/L 21-32 L ANION GAP (test code = GAP) 11.0 GAP calc 4.0-15.0 N GLUCOSE (test code = GLU) 83 MG/DL 70-110 N BLOOD UREA NITROGEN (test code = BUN) 17 MG/DL 7-18 N GLOMERULAR FILTRATION RATE (test code = GFR) >=60 max estimate estG FR >60 CREATININE (test code = CREAT) 0.6 MG/DL 0.6-1.0 N TOTAL PROTEIN (test code = PROT) 6.9 G/DL 6.4-8.2 N ALBUMIN (test code = ALB) 3.1 G/DL 3.4-5.0 L GLOBULIN (test code = GLOB) 3.8 GM/dL ALBUMIN/GLOBULIN RATIO (test code = A/G) 0.8 RATIO 1.2-2.2 L CALCIUM (test code = CA) 8.2 MG/DL 8.5-10.1 L BILIRUBIN TOTAL (test code = BILT) 0.30 MG/DL 0.2-1.2 N SGOT/AST (test code = AST) 27 Unit/L 15-37 N SGPT/ALT (test code = ALT) 16 Unit/L 12-78 N ALKALINE PHOSPHATASE TOTAL (test code = ALKP) 50 Unit/L 45-117 N GLUCOSE BEDSIDE [id number] 20:15:00* Test Item Value Reference Range Interpretation Comments GLUCOSE BEDSIDE TESTING (test code = GLUBED) 89 mg/dL 70-110 N GLUCOSE BEDSIDE [id number] 16:44:00* Test Item Value Reference Range Interpretation Comments GLUCOSE BEDSIDE TESTING (test code = GLUBED) 76 mg/dL 70-110 N GLUCOSE BEDSIDE [id number] 11:53:00* Test Item Value Reference Range Interpretation Comments GLUCOSE BEDSIDE TESTING (test code = GLUBED) 90 mg/dL 70-110 N GLUCOSE BEDSIDE [id number] 07:50:00* Test Item Value Reference Range Interpretation Comments GLUCOSE BEDSIDE TESTING (test code = GLUBED) 99 mg/dL 70-110 N GLUCOSE BEDSIDE [id number] 20:46:00* Test Item Value Reference Range Interpretation Comments GLUCOSE BEDSIDE TESTING (test code = GLUBED) 124 mg/dL 70-110 H GLUCOSE BEDSIDE [id number] 17:04:00* Test Item Value Reference Range Interpretation Comments GLUCOSE BEDSIDE TESTING (test code = GLUBED) 98 mg/dL 70-110 N GLUCOSE BEDSIDE [id number] 11:44:00* Test Item Value Reference Range Interpretation Comments GLUCOSE BEDSIDE TESTING (test code = GLUBED) 70 mg/dL 70-110 N GLUCOSE BEDSIDE [id number] 08:07:00* Test Item Value Reference Range Interpretation Comments GLUCOSE BEDSIDE TESTING (test code = GLUBED) 108 mg/dL 70-110 N BASIC METABOLIC [id number] 05:21:00* Test Item Value Reference Range Interpretation Comments SODIUM (test code = NA) 141 mmol/L 134-147 N POTASSIUM (test code = K) 3.9 mmol/L 3.4-5.0 N CHLORIDE (test code = CL) 110 mmol/L 100-108 H CARBON DIOXIDE (test code = CO2) 24 mmol/L 21-32 N ANION GAP (test code = GAP) 7.0 GAP calc 4.0-15.0 N GLUCOSE (test code = GLU) 87 MG/DL 70-110 N BLOOD UREA NITROGEN (test code = BUN) 14 MG/DL 7-18 N GLOMERULAR FILTRATION RATE (test code = GFR) >=60 max estimate estG FR >60 CREATININE (test code = CREAT) 0.5 MG/DL 0.6-1.0 L CALCIUM (test code = CA) 8.0 MG/DL 8.5-10.1 L CBC W/AUTO [id number] 05:09:00* Test Item Value Reference Range Interpretation Comments WHITE BLOOD CELL (test code = WBC) 4.1 K/mm3 3.5-11.0 N RED BLOOD CELL (test code = RBC) 3.54 M/mm3 4.70-6.10 L HEMOGLOBIN (test code = HGB) 11.1 G/DL 10.4-14.9 N HEMATOCRIT (test code = HCT) 33.7 % 31.5-44.1 N MEAN CELL VOLUME (test code = MCV) 95.2 Fl 84.5-98.6 N MEAN CELL HGB (test code = MCH) 31.4 pg 27.0-34.2 N MEAN CELL HGB CONCETRATION (test code = MCHC) 32.9 G/DL 31.5-34. 0 N RED CELL DISTRIBUTION WIDTH (test code = RDW) 13.5 SD 11.5-14. 5 N PLATELET COUNT (test code = PLT) 215.0 K/mm3 150-450 N MEAN PLATELET VOLUME (test code = MPV) 11.10 fL 7.0-10.5 H NEUTROPHIL % (test code = NT%) 32.5 % 40-76 L LYMPHOCYTE % (test code = LY%) 51.1 % 20.5-51.1 N MONOCYTE % (test code = MO%) 9.8 % 1.7-9.3 H EOSINOPHIL % (test code = EO%) 6.1 % 0.0-6.0 H BASOPHIL % (test code = BA%) 0.5 % 0.0-2.0 N NEUTROPHIL # (test code = NT#) 1.32 K/mm3 1.8-7.6 L LYMPHOCYTE # (test code = LY#) 2.1 K/mm3 0.6-3.2 N MONOCYTE # (test code = MO#) 0.4 K/mm3 0.3-1.1 N EOSINOPHIL # (test code = EO#) 0.3 K/mm3 0.0-0.4 N BASOPHIL # (test code = BA#) 0.0 K/mm3 0.0-0.1 N MANUAL DIFF REQUIRED (test code = MDIFF) NO DIFF/SCN CRITERIA GLUCOSE BEDSIDE [id number] 20:47:00* Test Item Value Reference Range Interpretation Comments GLUCOSE BEDSIDE TESTING (test code = GLUBED) 88 mg/dL 70-110 N GLUCOSE BEDSIDE [id number] 16:59:00* Test Item Value Reference Range Interpretation Comments GLUCOSE BEDSIDE TESTING (test code = GLUBED) 72 mg/dL 70-110 N TRICYCLICS BY HPLC, ID [id number] 15:31:00* Test Item Value Reference Range Interpretation Comments AMITRIPTYLINE (test code = ALEXUS) None Detected ng/mL Not Estab. DESIPRAMINE (test code = ALMA) None Detected ng/mL Not Estab. DOXEPIN (test code = DOXT) None Detected ng/mL Not Estab. DOXEPIN NORDOXEPINE (test code = TDOXN) Comment ng/mL 50-150 Total not calculated due to one or more constituents notdetected. Therapeutic range is still applicable. Detection Limit = 20 IMIPRAMINE (test code = IMIP) None Detected ng/mL Not Estab. IMIPRIMINE/DESIPRIMINE TOTAL (test code = IMDEST) Comment ng/mL 175 -300 Total not calculated due to one or more constituents notdetected. Therapeutic range is still applicable. Detection Limit = 20 NORTRIPTYLINE (test code = NORT) None Detected ng/mL 50-150 AMITRIPTYLINE NORTRIP (test code = TOTAN) Comment ng/mL 80-200 Total not calculated due to one or more constituents notdetected. Therapeutic range is still applicable. Detection Limit = 20 NORDOXEPIN (test code = JOSÉ) None Detected ng/mL Not Estab. GLUCOSE BEDSIDE [id number] 08:44:00* Test Item Value Reference Range Interpretation Comments GLUCOSE BEDSIDE TESTING (test code = GLUBED) 88 mg/dL 70-110 N TRICYCLICS BY HPLC, ID [id number] 06:09:00* Test Item Value Reference Range Interpretation Comments AMITRIPTYLINE (test code = ALEXUS) None Detected ng/mL Not Estab. DESIPRAMINE (test code = ALMA) None Detected ng/mL Not Estab. DOXEPIN (test code = DOXT) None Detected ng/mL Not Estab. DOXEPIN NORDOXEPINE (test code = TDOXN) Comment ng/mL 50-150 Total not calculated due to one or more constituents notdetected. Therapeutic range is still applicable. Detection Limit = 20 IMIPRAMINE (test code = IMIP) None Detected ng/mL Not Estab. IMIPRIMINE/DESIPRIMINE TOTAL (test code = IMDEST) Comment ng/mL 175 -300 Total not calculated due to one or more constituents notdetected. Therapeutic range is still applicable. Detection Limit = 20 NORTRIPTYLINE (test code = NORT) None Detected ng/mL 50-150 AMITRIPTYLINE NORTRIP (test code = TOTAN) Comment ng/mL 80-200 Total not calculated due to one or more constituents notdetected. Therapeutic range is still applicable. Detection Limit = 20 TRICYCLICS SER (test code = TRISER) NORDOXEPIN (test code = JOSÉ) None Detected ng/mL Not Estab. GLUCOSE BEDSIDE [id number] 20:56:00* Test Item Value Reference Range Interpretation Comments GLUCOSE BEDSIDE TESTING (test code = GLUBED) 70 mg/dL 70-110 N GLUCOSE BEDSIDE [id number] 18:11:00* Test Item Value Reference Range Interpretation Comments GLUCOSE BEDSIDE TESTING (test code = GLUBED) 90 mg/dL 70-110 N GLUCOSE BEDSIDE [id number] 12:41:00* Test Item Value Reference Range Interpretation Comments GLUCOSE BEDSIDE TESTING (test code = GLUBED) 90 mg/dL 70-110 N GLUCOSE BEDSIDE [id number] 08:10:00* Test Item Value Reference Range Interpretation Comments GLUCOSE BEDSIDE TESTING (test code = GLUBED) 102 mg/dL 70-110 N GLUCOSE BEDSIDE [id number] 00:58:00* Test Item Value Reference Range Interpretation Comments GLUCOSE BEDSIDE TESTING (test code = GLUBED) 105 mg/dL 70-110 N GLUCOSE BEDSIDE [id number] 20:36:00* Test Item Value Reference Range Interpretation Comments GLUCOSE BEDSIDE TESTING (test code = GLUBED) 128 mg/dL 70-110 H GLUCOSE BEDSIDE [id number] 17:10:00* Test Item Value Reference Range Interpretation Comments GLUCOSE BEDSIDE TESTING (test code = GLUBED) 111 mg/dL 70-110 H GLUCOSE BEDSIDE [id number] 09:10:00* Test Item Value Reference Range Interpretation Comments GLUCOSE BEDSIDE TESTING (test code = GLUBED) 104 mg/dL 70-110 N COMPREHENSIVE METABOLIC [id number] 07:10:00* Test Item Value Reference Range Interpretation Comments SODIUM (test code = NA) 140 mmol/L 134-147 N POTASSIUM (test code = K) 4.1 mmol/L 3.4-5.0 N CHLORIDE (test code = CL) 111 mmol/L 100-108 H CARBON DIOXIDE (test code = CO2) 23 mmol/L 21-32 N ANION GAP (test code = GAP) 6.0 GAP calc 4.0-15.0 N GLUCOSE (test code = GLU) 80 MG/DL 70-110 N BLOOD UREA NITROGEN (test code = BUN) 10 MG/DL 7-18 N GLOMERULAR FILTRATION RATE (test code = GFR) >=60 max estimate estG FR >60 CREATININE (test code = CREAT) 0.5 MG/DL 0.6-1.0 L TOTAL PROTEIN (test code = PROT) 6.7 G/DL 6.4-8.2 N ALBUMIN (test code = ALB) 2.9 G/DL 3.4-5.0 L GLOBULIN (test code = GLOB) 3.8 GM/dL ALBUMIN/GLOBULIN RATIO (test code = A/G) 0.8 RATIO 1.2-2.2 L CALCIUM (test code = CA) 7.8 MG/DL 8.5-10.1 L BILIRUBIN TOTAL (test code = BILT) 0.20 MG/DL 0.2-1.2 N SGOT/AST (test code = AST) 14 Unit/L 15-37 L SGPT/ALT (test code = ALT) 14 Unit/L 12-78 N ALKALINE PHOSPHATASE TOTAL (test code = ALKP) 53 Unit/L 45-117 N CBC W/AUTO [id number] 07:02:00* Test Item Value Reference Range Interpretation Comments WHITE BLOOD CELL (test code = WBC) 4.2 K/mm3 3.5-11.0 N RED BLOOD CELL (test code = RBC) 3.97 M/mm3 4.70-6.10 L HEMOGLOBIN (test code = HGB) 12.6 G/DL 10.4-14.9 N HEMATOCRIT (test code = HCT) 37.5 % 31.5-44.1 N MEAN CELL VOLUME (test code = MCV) 94.5 Fl 84.5-98.6 N MEAN CELL HGB (test code = MCH) 31.7 pg 27.0-34.2 N MEAN CELL HGB CONCETRATION (test code = MCHC) 33.6 G/DL 31.5-34. 0 N RED CELL DISTRIBUTION WIDTH (test code = RDW) 13.3 SD 11.5-14. 5 N PLATELET COUNT (test code = PLT) 155.0 K/mm3 150-450 N MEAN PLATELET VOLUME (test code = MPV) 12.10 fL 7.0-10.5 H NEUTROPHIL % (test code = NT%) 29.7 % 40-76 L LYMPHOCYTE % (test code = LY%) 53.8 % 20.5-51.1 H MONOCYTE % (test code = MO%) 12.0 % 1.7-9.3 H EOSINOPHIL % (test code = EO%) 4.3 % 0.0-6.0 N BASOPHIL % (test code = BA%) 0.2 % 0.0-2.0 N NEUTROPHIL # (test code = NT#) 1.23 K/mm3 1.8-7.6 L LYMPHOCYTE # (test code = LY#) 2.2 K/mm3 0.6-3.2 N MONOCYTE # (test code = MO#) 0.5 K/mm3 0.3-1.1 N EOSINOPHIL # (test code = EO#) 0.2 K/mm3 0.0-0.4 N BASOPHIL # (test code = BA#) 0.0 K/mm3 0.0-0.1 N MANUAL DIFF REQUIRED (test code = MDIFF) NO DIFF/SCN CRITERIA GLUCOSE BEDSIDE [id number] 04:54:00* Test Item Value Reference Range Interpretation Comments GLUCOSE BEDSIDE TESTING (test code = GLUBED) 100 mg/dL 70-110 N GLUCOSE BEDSIDE [id number] 00:52:00* Test Item Value Reference Range Interpretation Comments GLUCOSE BEDSIDE TESTING (test code = GLUBED) 98 mg/dL 70-110 N GLUCOSE BEDSIDE [id number] 20:16:00* Test Item Value Reference Range Interpretation Comments GLUCOSE BEDSIDE TESTING (test code = GLUBED) 107 mg/dL 70-110 N GLUCOSE BEDSIDE [id number] 16:56:00* Test Item Value Reference Range Interpretation Comments GLUCOSE BEDSIDE TESTING (test code = GLUBED) 101 mg/dL 70-110 N COMPREHENSIVE METABOLIC [id number] 15:40:00* Test Item Value Reference Range Interpretation Comments SODIUM (test code = NA) 140 mmol/L 134-147 N POTASSIUM (test code = K) 4.0 mmol/L 3.4-5.0 N CHLORIDE (test code = CL) 109 mmol/L 100-108 H CARBON DIOXIDE (test code = CO2) 24 mmol/L 21-32 N ANION GAP (test code = GAP) 7.0 GAP calc 4.0-15.0 N GLUCOSE (test code = GLU) 111 MG/DL 70-110 H BLOOD UREA NITROGEN (test code = BUN) 12 MG/DL 7-18 N GLOMERULAR FILTRATION RATE (test code = GFR) >=60 max estimate estG FR >60 CREATININE (test code = CREAT) 0.6 MG/DL 0.6-1.0 N TOTAL PROTEIN (test code = PROT) 6.8 G/DL 6.4-8.2 ALBUMIN (test code = ALB) 3.3 G/DL 3.4-5.0 L GLOBULIN (test code = GLOB) 3.5 GM/dL ALBUMIN/GLOBULIN RATIO (test code = A/G) 0.9 RATIO 1.2-2.2 L CALCIUM (test code = CA) 8.2 MG/DL 8.5-10.1 L BILIRUBIN TOTAL (test code = BILT) <0.10 MG/DL 0.2-1.2 L SGOT/AST (test code = AST) 14 Unit/L 15-37 L SGPT/ALT (test code = ALT) 15 Unit/L 12-78 N ALKALINE PHOSPHATASE TOTAL (test code = ALKP) 58 Unit/L 45-117 N CBC W/AUTO [id number] 13:23:00* Test Item Value Reference Range Interpretation Comments WHITE BLOOD CELL (test code = WBC) 5.2 K/mm3 3.5-11.0 N RED BLOOD CELL (test code = RBC) 3.99 M/mm3 4.70-6.10 L HEMOGLOBIN (test code = HGB) 12.6 G/DL 10.4-14.9 HEMATOCRIT (test code = HCT) 37.4 % 31.5-44.1 N MEAN CELL VOLUME (test code = MCV) 93.7 Fl 84.5-98.6 N MEAN CELL HGB (test code = MCH) 31.6 pg 27.0-34.2 N MEAN CELL HGB CONCETRATION (test code = MCHC) 33.7 G/DL 31.5-34. 0 N RED CELL DISTRIBUTION WIDTH (test code = RDW) 13.0 SD 11.5-14. 5 N PLATELET COUNT (test code = PLT) 245.0 K/mm3 150-450 N MEAN PLATELET VOLUME (test code = MPV) 10.80 fL 7.0-10.5 H NEUTROPHIL % (test code = NT%) 51.1 % 40-76 LYMPHOCYTE % (test code = LY%) 32.4 % 20.5-51.1 N MONOCYTE % (test code = MO%) 12.5 % 1.7-9.3 H EOSINOPHIL % (test code = EO%) 3.6 % 0.0-6.0 N BASOPHIL % (test code = BA%) 0.4 % 0.0-2.0 N NEUTROPHIL # (test code = NT#) 2.67 K/mm3 1.8-7.6 N LYMPHOCYTE # (test code = LY#) 1.7 K/mm3 0.6-3.2 N MONOCYTE # (test code = MO#) 0.7 K/mm3 0.3-1.1 N EOSINOPHIL # (test code = EO#) 0.2 K/mm3 0.0-0.4 N BASOPHIL # (test code = BA#) 0.0 K/mm3 0.0-0.1 N MANUAL DIFF REQUIRED (test code = MDIFF) DIFF/SCN CRITERIA CBC W/AUTO [id number] 13:23:00* Test Item Value Reference Range Interpretation Comments WHITE BLOOD CELL (test code = WBC) 5.2 K/mm3 3.5-11.0 N RED BLOOD CELL (test code = RBC) 3.99 M/mm3 4.70-6.10 L HEMOGLOBIN (test code = HGB) 12.6 G/DL 10.4-14.9 HEMATOCRIT (test code = HCT) 37.4 % 31.5-44.1 N MEAN CELL VOLUME (test code = MCV) 93.7 Fl 84.5-98.6 N MEAN CELL HGB (test code = MCH) 31.6 pg 27.0-34.2 N MEAN CELL HGB CONCETRATION (test code = MCHC) 33.7 G/DL 31.5-34. 0 N RED CELL DISTRIBUTION WIDTH (test code = RDW) 13.0 SD 11.5-14. 5 N PLATELET COUNT (test code = PLT) 245.0 K/mm3 150-450 N MEAN PLATELET VOLUME (test code = MPV) 10.80 fL 7.0-10.5 H NEUTROPHIL % (test code = NT%) 51.1 % 40-76 LYMPHOCYTE % (test code = LY%) 32.4 % 20.5-51.1 N MONOCYTE % (test code = MO%) 12.5 % 1.7-9.3 H EOSINOPHIL % (test code = EO%) 3.6 % 0.0-6.0 N BASOPHIL % (test code = BA%) 0.4 % 0.0-2.0 N NEUTROPHIL # (test code = NT#) 2.67 K/mm3 1.8-7.6 N LYMPHOCYTE # (test code = LY#) 1.7 K/mm3 0.6-3.2 N MONOCYTE # (test code = MO#) 0.7 K/mm3 0.3-1.1 N EOSINOPHIL # (test code = EO#) 0.2 K/mm3 0.0-0.4 N BASOPHIL # (test code = BA#) 0.0 K/mm3 0.0-0.1 N MANUAL DIFF REQUIRED (test code = MDIFF) NO DIFF/SCN CRITERIA GLUCOSE BEDSIDE [id number] 12:21:00* Test Item Value Reference Range Interpretation Comments GLUCOSE BEDSIDE TESTING (test code = GLUBED) 105 mg/dL 70-110 N - CT HEAD/BRAIN W/O [id number] 11:03:00 Name: KENNETH PLATT : 1985 Age/S: 33 / F [id number] [address] Unit #: [id number] Loc: [place] [address] Phys: Supa Stroud MD Acct: [id number] Dis Date: Status: ADM IN PHONE #: [phone] Exam Date: 03/06/2019 1047 FAX #: Reason: AMS EXAMS: CPT: [id number] CT HEAD/BRAIN W/O CONT [id number] EXAM: - CT HEAD/BRAIN W/O CONT Location code:C3 HISTORY: AMS TECHNIQUE: Axial CT images from the skull base to the vertex without intravenous contrast. Coronal and sagittal reformatted images were created from the data set. One or more of the following dose reduction techniques were used: Automated exposure control, adjustment of the mA and/or kV according to patient size, and/or utilization of iterative reconstruction technique. DLP: 883.48 mGy-cm. COMPARISON: 04/21/2007 FINDINGS: Intracranial: No abnormal brain parenchymal density. No evidence of acute infarction, intracranial hemorrhage, mass or mass effect, or abnormal extra-axial fluid collection. The ventricular system and sulci are age appropriate. The density in the larger dural sinuses is grossly normal. Bones: There is no evidence of acute displaced calvarial fracture. Sinuses: The visualized portions of the paranasal sinuses demonstrate no significant opacificat ion.The mastoid air cells are clear. Orbits/Soft Tissues: The vis ualized orbits show no significant abnormalities. The visualized soft tis sues are unremarkable. IMPRESSION: 1. No CT e vidence of acute intracranial abnormality. Electronically Si gned by Gume Bhagat MD on 03/06/2019 at 11 03 Reported and signed by: Gume lakhani MD PAGE 1 Signed Report (C ONTINUED) Name: KENNETH PLATT : 1985 Age/S: 33 / F [address] it #: [id number] Loc: [place] [place] [address] Phys: Supa Stroud MD Acct: [id number] Dis Date: Status: ADM IN PHONE #: [phone] Exam Date: 03/06/2019 1047 FAX #: Reason: AMS E XAMS: CPT: [id number] CT HEAD/BRAIN W/O CONT [id number] <Continued> CC: Ramone Bang MD; Supa Stroud MD Technologist:BEATRIZ SCHULTZ RT(R)(CT)(MR) CTDI: DLP: Trnscb Date/Time: 03/06/2019 (1103) [email or web address] Orig Print D/T: S: 03/06/2019 (1106) PAGE 2 Signed Report GLUCOSE BEDSIDE [id number] 07:53:00* Test Item Value Reference Range Interpretation Comments GLUCOSE BEDSIDE TESTING (test code = GLUBED) 93 mg/dL 70-110 N GLUCOSE BEDSIDE [id number] 04:49:00* Test Item Value Reference Range Interpretation Comments GLUCOSE BEDSIDE TESTING (test code = GLUBED) 87 mg/dL 70-110 N GLUCOSE BEDSIDE [id number] 00:27:00* Test Item Value Reference Range Interpretation Comments GLUCOSE BEDSIDE TESTING (test code = GLUBED) 132 mg/dL 70-110 H BASIC METABOLIC [id number] 22:35:00* Test Item Value Reference Range Interpretation Comments SODIUM (test code = NA) 140 mmol/L 134-147 N POTASSIUM (test code = K) 4.3 mmol/L 3.4-5.0 N CHLORIDE (test code = CL) 109 mmol/L 100-108 H CARBON DIOXIDE (test code = CO2) 24 mmol/L 21-32 N ANION GAP (test code = GAP) 7.0 GAP calc 4.0-15.0 N GLUCOSE (test code = GLU) 86 MG/DL 70-110 N BLOOD UREA NITROGEN (test code = BUN) 15 MG/DL 7-18 N GLOMERULAR FILTRATION RATE (test code = GFR) >=60 max estimate estG FR >60 CREATININE (test code = CREAT) 0.7 MG/DL 0.6-1.0 N CALCIUM (test code = CA) 8.3 MG/DL 8.5-10.1 L GLUCOSE BEDSIDE [id number] 21:02:00* Test Item Value Reference Range Interpretation Comments GLUCOSE BEDSIDE TESTING (test code = GLUBED) 99 mg/dL 70-110 N GLUCOSE BEDSIDE [id number] 16:46:00* Test Item Value Reference Range Interpretation Comments GLUCOSE BEDSIDE TESTING (test code = GLUBED) 127 mg/dL 70-110 H GLUCOSE BEDSIDE [id number] 15:33:00* Test Item Value Reference Range Interpretation Comments GLUCOSE BEDSIDE TESTING (test code = GLUBED) 55 mg/dL 70-110 L COMPREHENSIVE METABOLIC [id number] 13:49:00* Test Item Value Reference Range Interpretation Comments SODIUM (test code = NA) 150 mmol/L 134-147 H POTASSIUM (test code = K) 2.1 mmol/L 3.4-5.0 LL CHLORIDE (test code = CL) 126 mmol/L 100-108 H CARBON DIOXIDE (test code = CO2) 15 mmol/L 21-32 L ANION GAP (test code = GAP) 9.0 GAP calc 4.0-15.0 N GLUCOSE (test code = GLU) 39 MG/DL 70-110 LL BLOOD UREA NITROGEN (test code = BUN) 8 MG/DL 7-18 N GLOMERULAR FILTRATION RATE (test code = GFR) >=60 max estimate estG FR >60 CREATININE (test code = CREAT) 0.2 MG/DL 0.6-1.0 L TOTAL PROTEIN (test code = PROT) 4.2 G/DL 6.4-8.2 L ALBUMIN (test code = ALB) 1.9 G/DL 3.4-5.0 L GLOBULIN (test code = GLOB) 2.3 GM/dL ALBUMIN/GLOBULIN RATIO (test code = A/G) 0.8 RATIO 1.2-2.2 L CALCIUM (test code = CA) < 5.0 MG/DL 8.5-10.1 LL BILIRUBIN TOTAL (test code = BILT) 0.30 MG/DL 0.2-1.2 N SGOT/AST (test code = AST) 10 Unit/L 15-37 L SGPT/ALT (test code = ALT) 10 Unit/L 12-78 L ALKALINE PHOSPHATASE TOTAL (test code = ALKP) 30 Unit/L 45-117 L Last Dose Date: 03/05/19 Dose Time: [id number] 13:49:00* Test Item Value Reference Range Interpretation Comments ACETAMINOPHEN (test code = ACET) 7.5 mcG/ML 10.0-30.0 L Last Dose Date: 03/05/19 Dose Time: 1146TRICYCLICS [id number] 13:49:00* Test Item Value Reference Range Interpretation Comments TRICYCLICS UR (test code = TRIUR) SCREEN NONE DET Last Dose Date: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 pmSigned by: MD Carr Adam FSigned (Electronic Signature): 11/04/2018 5:12 pmRAPID DRUG SCREEN, [id number] 12:26:00* Test Item Value Reference Range Interpretation Comments BARBITURATE URINE (BEAKER) (test code = 725) Negative Negative BENZODIAZEPINE SCREEN URINE (BEAKER) (test code = 726) Negative Negative COCAINE (METAB.) SCREEN (BEAKER) (test code = 1164) Positive Ne gative A METHADONE SCREEN (BEAKER) (test code = 1436) Negative Negative OPIATE SCREEN URINE (BEAKER) (test code = 734) Negative Negativ e CANNABINOID SCREEN URINE (BEAKER) (test code = 727) Negative Ne gative AMPH/METHAMPH SCREEN (BEAKER) (test code = 1438) Positive Negat karla A PHENCYCLIDINE SCREEN URINE (BEAKER) (test code = 608) Negative Negative OXYCODONE SCREEN URINE (BEAKER) (test code = 2761) Negative Neg ative DRUG CUTOFF CONC.Cocaine 300 ng/mL Cannabinoid 50 ng/mL Benzodiazepine 200 ng/mLBarbiturate 200 ng/mLPh encyclidine 25 ng/mLOpiate 300 ng/mLMethadone 300 ng/mLAmphetamine/ 1000 ng/mL MethamphetamineOxycodone 300 ng/mLThis assay provides an unconfirmed qualitative test result for the cli nical management of patients in emergency situations. Chain of custody not maint ained. Some cbch-rls-blmwujv medications, as well as adulterants, may cause inac curate results. Clinical correlation should be applied. A more comprehensive [place] g screen or confirmation of a detected drug may be performed upon request. URINALYSIS W/ [id number] 11:48:00* Test Item Value Reference Range Interpretation Comments COLOR (BEAKER) (test code = 470) Yellow CLARITY (BEAKER) (test code = 469) Hazy SPECIFIC GRAVITY UA (BEAKER) (test code = 468) 1.023 1.001-1 .035 PH UA (BEAKER) (test code = 467) 5.5 5.0-8.0 PROTEIN UA (BEAKER) (test code = 464) 30 mg/dL Negative A GLUCOSE UA (BEAKER) (test code = 365) Negative Negative KETONES UA (BEAKER) (test code = 371) Negative Negative BILIRUBIN UA (BEAKER) (test code = 462) Negative Negative BLOOD UA (BEAKER) (test code = 461) Moderate Negative A NITRITE UA (BEAKER) (test code = 465) Negative Negative LEUKOCYTE ESTERASE UA (BEAKER) (test code = 466) Trace Negat karla A UROBILINOGEN UA (BEAKER) (test code = 463) 0.2 mg/dL 0.2-1.0 RBC UA (BEAKER) (test code = 519) < /HPF WBC UA (BEAKER) (test code = 520) 10 /HPF BACTERIA (BEAKER) (test code = 517) Occasional MUCUS (BEAKER) (test code = 1574) Many SQUAMOUS EPITHELIAL (BEAKER) (test code = 516) 9 /HPF HYALINE CASTS (BEAKER) (test code = 514) 3 /LPF SOURCE(BEAKER) (test code = 2795) SCREEN, [id number] 11:01:00* Test Item Value Reference Range Interpretation Comments TEST URINE (BEAKER) (test code = 583) Negative HEPATIC FUNCTION [id number] 11:00:00* Test Item Value Reference Range Interpretation Comments TOTAL PROTEIN (BEAKER) (test code = 770) 6.8 gm/dL 6.0-8.3 ALBUMIN (BEAKER) (test code = 1145) 3.8 g/dL 3.5-5.0 BILIRUBIN TOTAL (BEAKER) (test code = 377) 0.3 mg/dL 0.2-1.2 BILIRUBIN DIRECT (BEAKER) (test code = 706) 0.2 mg/dL 0.1-0.5 ALKALINE PHOSPHATASE (BEAKER) (test code = 346) 49 U/L 40-150 AST (SGOT) (BEAKER) (test code = 353) 14 U/L 5-34 ALT (SGPT) (BEAKER) (test code = 347) 8 U/L 6-55 BASIC METABOLIC [id number] 11:00:00* Test Item Value Reference Range Interpretation Comments SODIUM (BEAKER) (test code = 381) 140 meq/L 136-145 POTASSIUM (BEAKER) (test code = 379) 3.8 meq/L 3.5-5.1 CHLORIDE (BEAKER) (test code = 382) 108 meq/L 98-107 H CO2 (BEAKER) (test code = 355) 26 meq/L 22-29 BLOOD UREA NITROGEN (BEAKER) (test code = 354) 10 mg/dL 7-21 CREATININE (BEAKER) (test code = 358) 0.74 mg/dL 0.57-1.25 GLUCOSE RANDOM (BEAKER) (test code = 652) 84 mg/dL 70-105 CALCIUM (BEAKER) (test code = 697) 9.2 mg/dL 8.4-10.2 EGFR (BEAKER) (test code = 1092) 109 mL/min/1.73 sq m ESTIMATED GFR IS NOT ACCURATE CREATININE CLEARANCE IN PREDICTING GLOMERULAR FILTRATION RATE. ESTIMATED GFR IS NOT APPLICABLE FOR DIALYSIS PATIENTS. CBC W/PLT COUNT & AUTO [id number] 10:47:00* Test Item Value Reference Range Interpretation Comments WHITE BLOOD CELL COUNT (BEAKER) (test code = 775) 4.0 K/ L 3.5- 10.5 RED BLOOD CELL COUNT (BEAKER) (test code = 761) 3.75 M/ L 3.93-5 .22 L HEMOGLOBIN (BEAKER) (test code = 410) 11.1 GM/DL 11.2-15.7 L HEMATOCRIT (BEAKER) (test code = 411) 34.0 % 34.1-44.9 L MEAN CORPUSCULAR VOLUME (BEAKER) (test code = 753) 90.7 fL 79. 4-94.8 MEAN CORPUSCULAR HEMOGLOBIN (BEAKER) (test code = 751) 29.6 pg 25.6-32.2 MEAN CORPUSCULAR HEMOGLOBIN CONC (BEAKER) (test code = 752) 32.6 GM/DL 32.2-35.5 RED CELL DISTRIBUTION WIDTH (BEAKER) (test code = 412) 15.1 % 11.7-14.4 H PLATELET COUNT (BEAKER) (test code = 756) 206 K/CU MM 150-450 MEAN PLATELET VOLUME (BEAKER) (test code = 754) 11.7 fL 9.4-12 .3 NUCLEATED RED BLOOD CELLS (BEAKER) (test code = 413) 0 /100 WBC 0 -0 NEUTROPHILS RELATIVE PERCENT (BEAKER) (test code = 429) 41 % LYMPHOCYTES RELATIVE PERCENT (BEAKER) (test code = 430) 44 % MONOCYTES RELATIVE PERCENT (BEAKER) (test code = 431) 9 % EOSINOPHILS RELATIVE PERCENT (BEAKER) (test code = 432) 5 % BASOPHILS RELATIVE PERCENT (BEAKER) (test code = 437) 1 % NEUTROPHILS ABSOLUTE COUNT (BEAKER) (test code = 670) 1.65 K/ L 1.56-6.13 LYMPHOCYTES ABSOLUTE COUNT (BEAKER) (test code = 414) 1.78 K/ L 1.18-3.74 MONOCYTES ABSOLUTE COUNT (BEAKER) (test code = 415) 0.34 K/ L 0. 24-0.36 EOSINOPHILS ABSOLUTE COUNT (BEAKER) (test code = 416) 0.18 K/ L 0.04-0.36 BASOPHILS ABSOLUTE COUNT (BEAKER) (test code = 417) 0.05 K/ L 0. 01-0.08 IMMATURE GRANULOCYTES-RELATIVE PERCENT (BEAKER) (test code = 2801) 0 % 0-1 SALICYLATE [id number] 09:19:00* Test Item Value Reference Range Interpretation Comments SALICYLATE LEVEL (BEAKER) (test code = 764) < mg/dL 15.0-30.0 L Therapeutic Range: 15.0-30.0 mg/dLToxic: >30.0 mg/dL Lethal: >70.0 mg/dLACETAMINOPHEN [id number] 09:16:00* Test Item Value Reference Range Interpretation Comments ACETAMINOPHEN LEVEL (BEAKER) (test code = 344) < ug/mL 10.0-30 .0 L Specimen slightly hemolyzed Therapeutic Range: 10.0-30.0 g/mLToxic Levels: >200.0 g/mLETHANOL 2018-11-02 09:11:00* Test Item Value Reference Range Interpretation Comments ETHANOL (BEAKER) (test code = 400) < mg/dL <=10 CREATINE KINASE (CK)2018-08-17 19:27:00* Test Item Value Reference Range Interpretation Comments CREATINE KINASE TOTAL (BEAKER) (test code = 380) 235 U/L 25-23 5 RAPID DRUG SCREEN, [id number] 18:44:00* Test Item Value Reference Range Interpretation Comments BARBITURATE URINE (BEAKER) (test code = 725) Negative Negative BENZODIAZEPINE SCREEN URINE (BEAKER) (test code = 726) Positive Negative A COCAINE (METAB.) SCREEN (BEAKER) (test code = 1164) Positive Ne gative A METHADONE SCREEN (BEAKER) (test code = 1436) Negative Negative OPIATE SCREEN URINE (BEAKER) (test code = 734) Negative Negativ e CANNABINOID SCREEN URINE (BEAKER) (test code = 727) Negative Ne gative AMPH/METHAMPH SCREEN (BEAKER) (test code = 1438) Positive Negat karla A PHENCYCLIDINE SCREEN URINE (BEAKER) (test code = 608) Negative Negative DRUG CUTOFF CONC.Cocaine 300 ng/mL Cannabinoid 50 ng/mLBenzodiazepine 200 ng/mLBarbiturate 200 ng/mLPh encyclidine 25 ng/mLOpiate 300 ng/mLMethadone 300 ng/mLAmphetamine/ 1000 ng/mL MethamphetamineThis assay provides an unconfirmed qualitative test result for the clinical management of patients in emergency situations. Chain of custody not maintained. Some yajs-ome-bgysjkh me dications, as well as adulterants, may cause inaccurate results. Clinical correl ation should be applied. A more comprehensive drug screen or confirmation of a d etected drug may be performed upon request.HCG, SERUM, [id number] 18:20:00* Test Item Value Reference Range Interpretation Comments TEST SERUM (BEAKER) (test code = 584) Negative SALICYLATE [id number] 18:19:00* Test Item Value Reference Range Interpretation Comments SALICYLATE LEVEL (BEAKER) (test code = 764) < mg/dL 20.0-30.0 L ACETAMINOPHEN [id number] 18:19:00* Test Item Value Reference Range Interpretation Comments ACETAMINOPHEN LEVEL (BEAKER) (test code = 344) < ug/mL 10.0-30 .0 L Specimen slightly hemolyzed URINALYSIS W/ [id number] 18:16:00* Test Item Value Reference Range Interpretation Comments COLOR (BEAKER) (test code = 470) Yellow CLARITY (BEAKER) (test code = 469) Turbid SPECIFIC GRAVITY UA (BEAKER) (test code = 468) >= 1.001-1 .035 PH UA (BEAKER) (test code = 467) 6.0 5.0-8.0 PROTEIN UA (BEAKER) (test code = 464) Trace Negative A GLUCOSE UA (BEAKER) (test code = 365) Negative Negative KETONES UA (BEAKER) (test code = 371) Negative Negative BILIRUBIN UA (BEAKER) (test code = 462) Negative Negative BLOOD UA (BEAKER) (test code = 461) Negative Negative NITRITE UA (BEAKER) (test code = 465) Negative Negative LEUKOCYTE ESTERASE UA (BEAKER) (test code = 466) Small Negat karla A UROBILINOGEN UA (BEAKER) (test code = 463) 0.2 mg/dL 0.2-1.0 BACTERIA (BEAKER) (test code = 517) Moderate RBC UA-MANUAL (BEAKER) (test code = 1659) <5 /HPF WBC UA-MANUAL (BEAKER) (test code = 1661) 5-10 /HPF SQUAMOUS EPITHELIAL MANUAL (BEAKER) (test code = 1663) 20-50 /HPF SOURCE(BEAKER) (test code = 2795) [id number] 18:11:00* Test Item Value Reference Range Interpretation Comments ETHANOL (BEAKER) (test code = 400) < mg/dL <=10 TROPONIN [id number] 18:11:00* Test Item Value Reference Range Interpretation Comments TROPONIN I (BEAKER) (test code = 397) < ng/mL 0.00-0.15 Troponin I (TnI) levels must be interpreted in the context of the presenting sym ptoms and the clinical findings. Elevated TnI levels indicate myocardial damage, but are not specific for ischemic heart disease. Elevated TnI levels are seen in patients with other cardiac conditions (including myocarditis and congestive h eart failure), and slight TnI elevations occur in patients with other conditions , including sepsis, renal failure, acidosis, acute neurological disease, and per sistent tachyarrhythmia.BASIC METABOLIC [id number] 18:00:00* Test Item Value Reference Range Interpretation Comments SODIUM (BEAKER) (test code = 381) 139 meq/L 135-148 POTASSIUM (BEAKER) (test code = 379) 3.8 meq/L 3.6-5.5 Specimen slightly hemolyzed CHLORIDE (BEAKER) (test code = 382) 107 meq/L 98-106 H CO2 (BEAKER) (test code = 355) 20 meq/L 20-29 BLOOD UREA NITROGEN (BEAKER) (test code = 354) 12 mg/dL 10-26 CREATININE (BEAKER) (test code = 358) 0.79 mg/dL 0.50-1.20 Specimen slightly hemolyzed GLUCOSE RANDOM (BEAKER) (test code = 652) 99 mg/dL 70-110 CALCIUM (BEAKER) (test code = 697) 9.4 mg/dL 8.5-10.5 EGFR (BEAKER) (test code = 1092) 101 mL/min/1.73 sq m ESTIMATED GFR IS NOT ACCURATE CREATININE CLEARANCE IN PREDICTING GLOMERULAR FILTRATION RATE. ESTIMATED GFR IS NOT APPLICABLE FOR DIALYSIS PATIENTS. CBC W/PLT COUNT & AUTO [id number] 17:39:00* Test Item Value Reference Range Interpretation Comments WHITE BLOOD CELL COUNT (BEAKER) (test code = 775) 7.7 K/ L 4.0- 10.0 RED BLOOD CELL COUNT (BEAKER) (test code = 761) 4.35 M/ L 4.00-5 .00 HEMOGLOBIN (BEAKER) (test code = 410) 11.8 GM/DL 12.0-15.5 L HEMATOCRIT (BEAKER) (test code = 411) 37.7 % 36.0-46.0 MEAN CORPUSCULAR VOLUME (BEAKER) (test code = 753) 86.7 fL 82. 0-99.0 MEAN CORPUSCULAR HEMOGLOBIN (BEAKER) (test code = 751) 27.1 pg 27.0-33.0 MEAN CORPUSCULAR HEMOGLOBIN CONC (BEAKER) (test code = 752) 31.3 GM/DL 32.0-36.0 L RED CELL DISTRIBUTION WIDTH (BEAKER) (test code = 412) 15.6 % 12.0-15.0 H PLATELET COUNT (BEAKER) (test code = 756) 345 K/CU MM 150-430 MEAN PLATELET VOLUME (BEAKER) (test code = 754) 11.3 fL 6.0-11 .5 NUCLEATED RED BLOOD CELLS (BEAKER) (test code = 413) 0 /100 WBC 0 -0 NEUTROPHILS RELATIVE PERCENT (BEAKER) (test code = 429) 43 % LYMPHOCYTES RELATIVE PERCENT (BEAKER) (test code = 430) 41 % MONOCYTES RELATIVE PERCENT (BEAKER) (test code = 431) 12 % EOSINOPHILS RELATIVE PERCENT (BEAKER) (test code = 432) 4 % BASOPHILS RELATIVE PERCENT (BEAKER) (test code = 437) 1 % NEUTROPHILS ABSOLUTE COUNT (BEAKER) (test code = 670) 3.29 K/ L 1.80-8.00 LYMPHOCYTES ABSOLUTE COUNT (BEAKER) (test code = 414) 3.14 K/ L 1.48-4.50 MONOCYTES ABSOLUTE COUNT (BEAKER) (test code = 415) 0.93 K/ L 0. 00-1.30 EOSINOPHILS ABSOLUTE COUNT (BEAKER) (test code = 416) 0.27 K/ L 0.00-0.50 BASOPHILS ABSOLUTE COUNT (BEAKER) (test code = 417) 0.05 K/ L 0. 00-0.20 IMMATURE GRANULOCYTES-RELATIVE PERCENT (BEAKER) (test code = 2801) 0 % 0-0 ACETAMINOPHEN [id number] 13:36:00* Test Item Value Reference Range Interpretation Comments ACETAMINOPHEN LEVEL (BEAKER) (test code = 344) < ug/mL 10.0-30 .0 L Therapeutic Range: 10.0-30.0 g/mLToxic Levels: >200.0 g/mLSALICYLATE [id number] 13:36:00* Test Item Value Reference Range Interpretation Comments SALICYLATE LEVEL (BEAKER) (test code = 764) < mg/dL 15.0-30.0 L Therapeutic Range: 15.0-30.0 mg/dLToxic: >30.0 mg/dL Lethal: >70.0 mg/dLURINALYSIS W/ [id number] 13:18:00* Test Item Value Reference Range Interpretation Comments COLOR (BEAKER) (test code = 470) Yellow CLARITY (BEAKER) (test code = 469) Hazy SPECIFIC GRAVITY UA (BEAKER) (test code = 468) 1.025 1.001-1 .035 PH UA (BEAKER) (test code = 467) 6.0 5.0-8.0 PROTEIN UA (BEAKER) (test code = 464) 50 mg/dL Negative A GLUCOSE UA (BEAKER) (test code = 365) Negative Negative KETONES UA (BEAKER) (test code = 371) Negative Negative BILIRUBIN UA (BEAKER) (test code = 462) Negative Negative BLOOD UA (BEAKER) (test code = 461) Negative Negative NITRITE UA (BEAKER) (test code = 465) Negative Negative LEUKOCYTE ESTERASE UA (BEAKER) (test code = 466) Trace Negat karla A UROBILINOGEN UA (BEAKER) (test code = 463) 6.0 mg/dL 0.2-1.0 H RBC UA (BEAKER) (test code = 519) 0 /HPF WBC UA (BEAKER) (test code = 520) 7 /HPF MUCUS (BEAKER) (test code = 1574) Many SQUAMOUS EPITHELIAL (BEAKER) (test code = 516) 11 /HPF SOURCE(BEAKER) (test code = 2795) RAPID DRUG SCREEN, [id number] 13:16:00* Test Item Value Reference Range Interpretation Comments BARBITURATE URINE (BEAKER) (test code = 725) Negative Negative BENZODIAZEPINE SCREEN URINE (BEAKER) (test code = 726) Negative Negative COCAINE (METAB.) SCREEN (BEAKER) (test code = 1164) Positive Ne gative A METHADONE SCREEN (BEAKER) (test code = 1436) Negative Negative OPIATE SCREEN URINE (BEAKER) (test code = 734) Negative Negativ e CANNABINOID SCREEN URINE (BEAKER) (test code = 727) Negative Ne gative AMPH/METHAMPH SCREEN (BEAKER) (test code = 1438) Negative Negat karla PHENCYCLIDINE SCREEN URINE (BEAKER) (test code = 608) Negative Negative OXYCODONE SCREEN URINE (BEAKER) (test code = 2761) Negative Neg ative DRUG CUTOFF CONC.Cocaine 300 ng/mL Cannabinoid 50 ng/mL Benzodiazepine 200 ng/mLBarbiturate 200 ng/mLPh encyclidine 25 ng/mLOpiate 300 ng/mLMethadone 300 ng/mLAmphetamine/ 1000 ng/mL MethamphetamineOxycodone 300 ng/mLThis assay provides an unconfirmed qualitative test result for the cli nical management of patients in emergency situations. Chain of custody not maint ained. Some miyk-zob-epzigvr medications, as well as adulterants, may cause inac curate results. Clinical correlation should be applied. A more comprehensive [place] g screen or confirmation of a detected drug may be performed upon request. SCREEN, [id number] 13:15:00* Test Item Value Reference Range Interpretation Comments TEST URINE (BEAKER) (test code = 583) Negative CBC W/PLT COUNT & AUTO [id number] 13:02:00* Test Item Value Reference Range Interpretation Comments WHITE BLOOD CELL COUNT (BEAKER) (test code = 775) 3.7 K/ L 3.5- 10.5 RED BLOOD CELL COUNT (BEAKER) (test code = 761) 4.03 M/ L 3.93-5 .22 HEMOGLOBIN (BEAKER) (test code = 410) 11.8 GM/DL 11.2-15.7 HEMATOCRIT (BEAKER) (test code = 411) 37.1 % 34.1-44.9 MEAN CORPUSCULAR VOLUME (BEAKER) (test code = 753) 92.1 fL 79. 4-94.8 MEAN CORPUSCULAR HEMOGLOBIN (BEAKER) (test code = 751) 29.3 pg 25.6-32.2 MEAN CORPUSCULAR HEMOGLOBIN CONC (BEAKER) (test code = 752) 31.8 GM/DL 32.2-35.5 L RED CELL DISTRIBUTION WIDTH (BEAKER) (test code = 412) 17.1 % 11.7-14.4 H PLATELET COUNT (BEAKER) (test code = 756) 262 K/CU MM 150-450 MEAN PLATELET VOLUME (BEAKER) (test code = 754) 11.1 fL 9.4-12 .3 NUCLEATED RED BLOOD CELLS (BEAKER) (test code = 413) 0 /100 WBC 0 -0 NEUTROPHILS RELATIVE PERCENT (BEAKER) (test code = 429) 43 % LYMPHOCYTES RELATIVE PERCENT (BEAKER) (test code = 430) 44 % MONOCYTES RELATIVE PERCENT (BEAKER) (test code = 431) 7 % EOSINOPHILS RELATIVE PERCENT (BEAKER) (test code = 432) 5 % BASOPHILS RELATIVE PERCENT (BEAKER) (test code = 437) 1 % NEUTROPHILS ABSOLUTE COUNT (BEAKER) (test code = 670) 1.61 K/ L 1.56-6.13 LYMPHOCYTES ABSOLUTE COUNT (BEAKER) (test code = 414) 1.64 K/ L 1.18-3.74 MONOCYTES ABSOLUTE COUNT (BEAKER) (test code = 415) 0.27 K/ L 0. 24-0.36 EOSINOPHILS ABSOLUTE COUNT (BEAKER) (test code = 416) 0.17 K/ L 0.04-0.36 BASOPHILS ABSOLUTE COUNT (BEAKER) (test code = 417) 0.03 K/ L 0. 01-0.08 IMMATURE GRANULOCYTES-RELATIVE PERCENT (BEAKER) (test code = 2801) 0 % 0-1 HEPATIC FUNCTION [id number] 13:00:00* Test Item Value Reference Range Interpretation Comments TOTAL PROTEIN (BEAKER) (test code = 770) 7.8 gm/dL 6.0-8.3 ALBUMIN (BEAKER) (test code = 1145) 4.1 g/dL 3.5-5.0 BILIRUBIN TOTAL (BEAKER) (test code = 377) 0.4 mg/dL 0.2-1.2 BILIRUBIN DIRECT (BEAKER) (test code = 706) 0.2 mg/dL 0.1-0.5 ALKALINE PHOSPHATASE (BEAKER) (test code = 346) 62 U/L 40-150 AST (SGOT) (BEAKER) (test code = 353) 13 U/L 5-34 ALT (SGPT) (BEAKER) (test code = 347) 9 U/L 6-55 BASIC METABOLIC [id number] 13:00:00* Test Item Value Reference Range Interpretation Comments SODIUM (BEAKER) (test code = 381) 138 meq/L 136-145 POTASSIUM (BEAKER) (test code = 379) 3.0 meq/L 3.5-5.1 L CHLORIDE (BEAKER) (test code = 382) 105 meq/L 98-107 CO2 (BEAKER) (test code = 355) 25 meq/L 22-29 BLOOD UREA NITROGEN (BEAKER) (test code = 354) 7 mg/dL 7-21 CREATININE (BEAKER) (test code = 358) 0.73 mg/dL 0.57-1.25 GLUCOSE RANDOM (BEAKER) (test code = 652) 75 mg/dL 70-105 CALCIUM (BEAKER) (test code = 697) 9.0 mg/dL 8.4-10.2 EGFR (BEAKER) (test code = 1092) 111 mL/min/1.73 sq m ESTIMATED GFR IS NOT ACCURATE CREATININE CLEARANCE IN PREDICTING GLOMERULAR FILTRATION RATE. ESTIMATED GFR IS NOT APPLICABLE FOR DIALYSIS PATIENTS. BLOOD [id number] 11:00:00* Test Item Value Reference Range Interpretation Comments CULTURE (BEAKER) (test code = 1095) No growth in 5 days BLOOD [id number] 11:00:00* Test Item Value Reference Range Interpretation Comments CULTURE (BEAKER) (test code = 1095) No growth in 5 days BLOOD [id number] 06:00:00* Test Item Value Reference Range Interpretation Comments CULTURE (BEAKER) (test code = 1095) No growth in 5 days BLOOD [id number] 06:00:00* Test Item Value Reference Range Interpretation Comments CULTURE (BEAKER) (test code = 1095) No growth in 5 days WOUND CULTURE + GRAM [id number] 13:33:00* Test Item Value Reference Range Interpretation Comments CULTURE (BEAKER) (test code = 1095) METHICILLIN RESISTANT ST APHYLOCOCCUS AUREUS A 4+ Methicillin resistant Sta phylococcus aureus Clindamycin (test code = 10) R Erythromycin (test code = 4) R Linezolid (test code = 40) S Nitrofurantoin (test code = 23) S Oxacillin (test code = 14) R Rifampin (test code = 43) S Tetracycline (test code = 2) S Trimethoprim + Sulfamethoxazole (test code = 47) S Vancomycin (test code = 13) S GRAM STAIN RESULT (BEAKER) (test code = 1123) 2+ White blood cells seen GRAM STAIN RESULT (BEAKER) (test code = 706008) 2+ gra m positive cocci in chains, pairs and clusters BASIC METABOLIC [id number] 06:05:00* Test Item Value Reference Range Interpretation Comments SODIUM (BEAKER) (test code = 381) 137 meq/L 136-145 POTASSIUM (BEAKER) (test code = 379) 4.4 meq/L 3.5-5.1 Specimen slightly hemolyzed CHLORIDE (BEAKER) (test code = 382) 107 meq/L 98-107 CO2 (BEAKER) (test code = 355) 22 meq/L 22-29 BLOOD UREA NITROGEN (BEAKER) (test code = 354) 7 mg/dL 7-21 CREATININE (BEAKER) (test code = 358) 0.63 mg/dL 0.57-1.25 Specimen slightly hemolyzed GLUCOSE RANDOM (BEAKER) (test code = 652) 76 mg/dL 70-105 CALCIUM (BEAKER) (test code = 697) 8.9 mg/dL 8.4-10.2 EGFR (BEAKER) (test code = 1092) 131 mL/min/1.73 sq m ESTIMATED GFR IS NOT ACCURATE CREATININE CLEARANCE IN PREDICTING GLOMERULAR FILTRATION RATE. ESTIMATED GFR IS NOT APPLICABLE FOR DIALYSIS PATIENTS. CBC W/PLT COUNT & AUTO [id number] 05:26:00* Test Item Value Reference Range Interpretation Comments WHITE BLOOD CELL COUNT (BEAKER) (test code = 775) 3.8 K/ L 3.5- 10.5 RED BLOOD CELL COUNT (BEAKER) (test code = 761) 3.44 M/ L 3.93-5 .22 L HEMOGLOBIN (BEAKER) (test code = 410) 9.4 GM/DL 11.2-15.7 L HEMATOCRIT (BEAKER) (test code = 411) 31.7 % 34.1-44.9 L MEAN CORPUSCULAR VOLUME (BEAKER) (test code = 753) 92.2 fL 79. 4-94.8 MEAN CORPUSCULAR HEMOGLOBIN (BEAKER) (test code = 751) 27.3 pg 25.6-32.2 MEAN CORPUSCULAR HEMOGLOBIN CONC (BEAKER) (test code = 752) 29.7 GM/DL 32.2-35.5 L RED CELL DISTRIBUTION WIDTH (BEAKER) (test code = 412) 19.6 % 11.7-14.4 H PLATELET COUNT (BEAKER) (test code = 756) 162 K/CU MM 150-450 MEAN PLATELET VOLUME (BEAKER) (test code = 754) 11.8 fL 9.4-12 .3 NUCLEATED RED BLOOD CELLS (BEAKER) (test code = 413) 0 /100 WBC 0 -0 NEUTROPHILS RELATIVE PERCENT (BEAKER) (test code = 429) 39 % LYMPHOCYTES RELATIVE PERCENT (BEAKER) (test code = 430) 47 % MONOCYTES RELATIVE PERCENT (BEAKER) (test code = 431) 8 % EOSINOPHILS RELATIVE PERCENT (BEAKER) (test code = 432) 5 % BASOPHILS RELATIVE PERCENT (BEAKER) (test code = 437) 1 % NEUTROPHILS ABSOLUTE COUNT (BEAKER) (test code = 670) 1.50 K/ L 1.56-6.13 L LYMPHOCYTES ABSOLUTE COUNT (BEAKER) (test code = 414) 1.78 K/ L 1.18-3.74 MONOCYTES ABSOLUTE COUNT (BEAKER) (test code = 415) 0.32 K/ L 0. 24-0.36 EOSINOPHILS ABSOLUTE COUNT (BEAKER) (test code = 416) 0.19 K/ L 0.04-0.36 BASOPHILS ABSOLUTE COUNT (BEAKER) (test code = 417) 0.02 K/ L 0. 01-0.08 IMMATURE GRANULOCYTES-RELATIVE PERCENT (BEAKER) (test code = 2801) 0 % 0-1 POCT-GLUCOSE [id number] 20:43:00* Test Item Value Reference Range Interpretation Comments POC-GLUCOSE METER (BEAKER) (test code = 1538) 83 mg/dL 70-[address] [facility] [address] [facility] [address] POCT-GLUCOSE [id number] 17:49:00* Test Item Value Reference Range Interpretation Comments POC-GLUCOSE METER (BEAKER) (test code = 1538) 73 mg/dL 70-110 TESTED AT [address] [address] POCT-GLUCOSE [id number] 11:13:00* Test Item Value Reference Range Interpretation Comments POC-GLUCOSE METER (BEAKER) (test code = 1538) 90 mg/dL 70-110 TESTED AT [address] [address] MRSA [id number] 09:05:00* Test Item Value Reference Range Interpretation Comments CULTURE (BEAKER) (test code = 1095) No MRSA isolated [id number] 02:42:00* Test Item Value Reference Range Interpretation Comments RPR SCREEN (BEAKER) (test code = 420) Nonreactive Nonreactive POCT-GLUCOSE [id number] 21:14:00* Test Item Value Reference Range Interpretation Comments POC-GLUCOSE METER (BEAKER) (test code = 1538) 91 mg/dL 70-110 TESTED AT [address] [address] RAPID DRUG SCREEN, [id number] 19:18:00* Test Item Value Reference Range Interpretation Comments BARBITURATE URINE (BEAKER) (test code = 725) Negative Negative BENZODIAZEPINE SCREEN URINE (BEAKER) (test code = 726) Positive Negative A COCAINE (METAB.) SCREEN (BEAKER) (test code = 1164) Positive Ne gative A METHADONE SCREEN (BEAKER) (test code = 1436) Negative Negative OPIATE SCREEN URINE (BEAKER) (test code = 734) Positive Negativ e A CANNABINOID SCREEN URINE (BEAKER) (test code = 727) Negative Ne gative AMPH/METHAMPH SCREEN (BEAKER) (test code = 1438) Negative Negat karla PHENCYCLIDINE SCREEN URINE (BEAKER) (test code = 608) Negative Negative OXYCODONE SCREEN URINE (BEAKER) (test code = 2761) Negative Neg ative DRUG CUTOFF CONC.Cocaine 300 ng/mL Cannabinoid 50 ng/mL Benzodiazepine 200 ng/mLBarbiturate 200 ng/mLPh encyclidine 25 ng/mLOpiate 300 ng/mLMethadone 300 ng/mLAmphetamine/ 1000 ng/mL MethamphetamineOxycodone 300 ng/mLThis assay provides an unconfirmed qualitative test result for the cli nical management of patients in emergency situations. Chain of custody not maint ained. Some lypy-wkn-ehlgvrw medications, as well as adulterants, may cause inac curate results. Clinical correlation should be applied. A more comprehensive neville g screen or confirmation of a detected drug may be performed upon request.POCT- GLUCOSE [id number] 17:45:00* Test Item Value Reference Range Interpretation Comments POC-GLUCOSE METER (BEAKER) (test code = 1538) 109 mg/dL 70-[address] [facility] [address] [facility] [address] VANCOMYCIN LEVEL, [id number] 09:09:00* Test Item Value Reference Range Interpretation Comments VANCOMYCIN TROUGH (BEAKER) (test code = 522) 5.7 ug/mL 10.0-20.0 L BASIC METABOLIC [id number] 07:29:00* Test Item Value Reference Range Interpretation Comments SODIUM (BEAKER) (test code = 381) 140 meq/L 136-145 POTASSIUM (BEAKER) (test code = 379) 4.1 meq/L 3.5-5.1 CHLORIDE (BEAKER) (test code = 382) 111 meq/L 98-107 H CO2 (BEAKER) (test code = 355) 22 meq/L 22-29 BLOOD UREA NITROGEN (BEAKER) (test code = 354) 6 mg/dL 7-21 L CREATININE (BEAKER) (test code = 358) 0.64 mg/dL 0.57-1.25 GLUCOSE RANDOM (BEAKER) (test code = 652) 94 mg/dL 70-105 CALCIUM (BEAKER) (test code = 697) 8.1 mg/dL 8.4-10.2 L EGFR (BEAKER) (test code = 1092) 129 mL/min/1.73 sq m ESTIMATED GFR IS NOT ACCURATE CREATININE CLEARANCE IN PREDICTING GLOMERULAR FILTRATION RATE. ESTIMATED GFR IS NOT APPLICABLE FOR DIALYSIS PATIENTS. CBC W/PLT COUNT & AUTO [id number] 07:10:00* Test Item Value Reference Range Interpretation Comments WHITE BLOOD CELL COUNT (BEAKER) (test code = 775) 3.9 K/ L 3.5- 10.5 RED BLOOD CELL COUNT (BEAKER) (test code = 761) 3.43 M/ L 3.93-5 .22 L HEMOGLOBIN (BEAKER) (test code = 410) 9.4 GM/DL 11.2-15.7 L HEMATOCRIT (BEAKER) (test code = 411) 30.3 % 34.1-44.9 L MEAN CORPUSCULAR VOLUME (BEAKER) (test code = 753) 88.3 fL 79. 4-94.8 MEAN CORPUSCULAR HEMOGLOBIN (BEAKER) (test code = 751) 27.4 pg 25.6-32.2 MEAN CORPUSCULAR HEMOGLOBIN CONC (BEAKER) (test code = 752) 31.0 GM/DL 32.2-35.5 L RED CELL DISTRIBUTION WIDTH (BEAKER) (test code = 412) 19.9 % 11.7-14.4 H PLATELET COUNT (BEAKER) (test code = 756) 218 K/CU MM 150-450 MEAN PLATELET VOLUME (BEAKER) (test code = 754) 10.9 fL 9.4-12 .3 NUCLEATED RED BLOOD CELLS (BEAKER) (test code = 413) 0 /100 WBC 0 -0 NEUTROPHILS RELATIVE PERCENT (BEAKER) (test code = 429) 55 % LYMPHOCYTES RELATIVE PERCENT (BEAKER) (test code = 430) 32 % MONOCYTES RELATIVE PERCENT (BEAKER) (test code = 431) 8 % EOSINOPHILS RELATIVE PERCENT (BEAKER) (test code = 432) 4 % BASOPHILS RELATIVE PERCENT (BEAKER) (test code = 437) 1 % NEUTROPHILS ABSOLUTE COUNT (BEAKER) (test code = 670) 2.18 K/ L 1.56-6.13 LYMPHOCYTES ABSOLUTE COUNT (BEAKER) (test code = 414) 1.25 K/ L 1.18-3.74 MONOCYTES ABSOLUTE COUNT (BEAKER) (test code = 415) 0.31 K/ L 0. 24-0.36 EOSINOPHILS ABSOLUTE COUNT (BEAKER) (test code = 416) 0.17 K/ L 0.04-0.36 BASOPHILS ABSOLUTE COUNT (BEAKER) (test code = 417) 0.02 K/ L 0. 01-0.08 IMMATURE GRANULOCYTES-RELATIVE PERCENT (BEAKER) (test code = 2801) 0 % 0-1 POCT-GLUCOSE [id number] 22:18:00* Test Item Value Reference Range Interpretation Comments POC-GLUCOSE METER (BEAKER) (test code = 1538) 114 mg/dL 70-[address] [facility] [address] [facility] [address] SCREEN, [id number] 12:54:00* Test Item Value Reference Range Interpretation Comments TEST URINE (BEAKER) (test code = 583) Negative BASIC METABOLIC [id number] 06:00:00* Test Item Value Reference Range Interpretation Comments SODIUM (BEAKER) (test code = 381) 143 meq/L 136-145 POTASSIUM (BEAKER) (test code = 379) 3.4 meq/L 3.5-5.1 L CHLORIDE (BEAKER) (test code = 382) 110 meq/L 98-107 H CO2 (BEAKER) (test code = 355) 25 meq/L 22-29 BLOOD UREA NITROGEN (BEAKER) (test code = 354) 6 mg/dL 7-21 L CREATININE (BEAKER) (test code = 358) 0.58 mg/dL 0.57-1.25 GLUCOSE RANDOM (BEAKER) (test code = 652) 82 mg/dL 70-105 CALCIUM (BEAKER) (test code = 697) 8.9 mg/dL 8.4-10.2 EGFR (BEAKER) (test code = 1092) 144 mL/min/1.73 sq m ESTIMATED GFR IS NOT ACCURATE CREATININE CLEARANCE IN PREDICTING GLOMERULAR FILTRATION RATE. ESTIMATED GFR IS NOT APPLICABLE FOR DIALYSIS PATIENTS. C-REACTIVE [id number] 06:00:00* Test Item Value Reference Range Interpretation Comments C-REACTIVE PROTEIN (BEAKER) (test code = 676) 5.06 mg/dL 0.00-0.5 0 H CBC W/PLT COUNT & AUTO [id number] 05:49:00* Test Item Value Reference Range Interpretation Comments WHITE BLOOD CELL COUNT (BEAKER) (test code = 775) 3.9 K/ L 3.5- 10.5 RED BLOOD CELL COUNT (BEAKER) (test code = 761) 3.29 M/ L 3.93-5 .22 L HEMOGLOBIN (BEAKER) (test code = 410) 9.1 GM/DL 11.2-15.7 L HEMATOCRIT (BEAKER) (test code = 411) 28.9 % 34.1-44.9 L MEAN CORPUSCULAR VOLUME (BEAKER) (test code = 753) 87.8 fL 79. 4-94.8 MEAN CORPUSCULAR HEMOGLOBIN (BEAKER) (test code = 751) 27.7 pg 25.6-32.2 MEAN CORPUSCULAR HEMOGLOBIN CONC (BEAKER) (test code = 752) 31.5 GM/DL 32.2-35.5 L RED CELL DISTRIBUTION WIDTH (BEAKER) (test code = 412) 19.9 % 11.7-14.4 H PLATELET COUNT (BEAKER) (test code = 756) 202 K/CU MM 150-450 MEAN PLATELET VOLUME (BEAKER) (test code = 754) 11.1 fL 9.4-12 .3 NUCLEATED RED BLOOD CELLS (BEAKER) (test code = 413) 0 /100 WBC 0 -0 NEUTROPHILS RELATIVE PERCENT (BEAKER) (test code = 429) 49 % LYMPHOCYTES RELATIVE PERCENT (BEAKER) (test code = 430) 36 % MONOCYTES RELATIVE PERCENT (BEAKER) (test code = 431) 8 % EOSINOPHILS RELATIVE PERCENT (BEAKER) (test code = 432) 6 % BASOPHILS RELATIVE PERCENT (BEAKER) (test code = 437) 1 % NEUTROPHILS ABSOLUTE COUNT (BEAKER) (test code = 670) 1.92 K/ L 1.56-6.13 LYMPHOCYTES ABSOLUTE COUNT (BEAKER) (test code = 414) 1.40 K/ L 1.18-3.74 MONOCYTES ABSOLUTE COUNT (BEAKER) (test code = 415) 0.32 K/ L 0. 24-0.36 EOSINOPHILS ABSOLUTE COUNT (BEAKER) (test code = 416) 0.23 K/ L 0.04-0.36 BASOPHILS ABSOLUTE COUNT (BEAKER) (test code = 417) 0.03 K/ L 0. 01-0.08 IMMATURE GRANULOCYTES-RELATIVE PERCENT (BEAKER) (test code = 2801) 0 % 0-1 BASIC METABOLIC [id number] 23:44:00* Test Item Value Reference Range Interpretation Comments SODIUM (BEAKER) (test code = 381) 139 meq/L 136-145 POTASSIUM (BEAKER) (test code = 379) 4.1 meq/L 3.5-5.1 Specimen moderately hemolyzed CHLORIDE (BEAKER) (test code = 382) 103 meq/L 98-107 CO2 (BEAKER) (test code = 355) 26 meq/L 22-29 BLOOD UREA NITROGEN (BEAKER) (test code = 354) 6 mg/dL 7-21 L CREATININE (BEAKER) (test code = 358) 0.66 mg/dL 0.57-1.25 Specimen moderately hemolyzed GLUCOSE RANDOM (BEAKER) (test code = 652) 75 mg/dL 70-105 CALCIUM (BEAKER) (test code = 697) 9.2 mg/dL 8.4-10.2 EGFR (BEAKER) (test code = 1092) 124 mL/min/1.73 sq m ESTIMATED GFR IS NOT ACCURATE CREATININE CLEARANCE IN PREDICTING GLOMERULAR FILTRATION RATE. ESTIMATED GFR IS NOT APPLICABLE FOR DIALYSIS PATIENTS. LACTIC ACID, VENOUS, WHOLE [id number] 23:40:00* Test Item Value Reference Range Interpretation Comments LACTATE BLOOD VENOUS (2) (BEAKER) (test code = 2872) 0.8 mmol/L 0 .5-2.2 Specimen slightly hemolyzed Effective 12/06/2015: Units/Reference Range ChangeNew: 0.5-2.2 mmol/L Previous: 5 -20 mg/dLRAD, KNEE, COMPLETE (4 VIEWS), [id number] 23:38:00Reason for exam:->knee painIs the patient ?->NoShould this be performed at the bedside?->NoFINAL REPORT CLINICAL HISTORY: Right knee pain 5 views of the right knee are submitted without comparison. There is no acute fracture or malalignment. No destructive bony lesion, significant degenerative change or radiopaque foreign body is present. The surrounding soft tissues are normal. IMPRESSION: No acute abnormality. Signed: [facility] Verified Date/Time: 03/17/2018 23:38:39 Reading Location: [address] Reading Room W/PLT COUNT & AUTO [id number] 23:25:00* Test Item Value Reference Range Interpretation Comments WHITE BLOOD CELL COUNT (BEAKER) (test code = 775) 5.8 K/ L 3.5- 10.5 RED BLOOD CELL COUNT (BEAKER) (test code = 761) 3.59 M/ L 3.93-5 .22 L HEMOGLOBIN (BEAKER) (test code = 410) 10.0 GM/DL 11.2-15.7 L HEMATOCRIT (BEAKER) (test code = 411) 31.0 % 34.1-44.9 L MEAN CORPUSCULAR VOLUME (BEAKER) (test code = 753) 86.4 fL 79. 4-94.8 MEAN CORPUSCULAR HEMOGLOBIN (BEAKER) (test code = 751) 27.9 pg 25.6-32.2 MEAN CORPUSCULAR HEMOGLOBIN CONC (BEAKER) (test code = 752) 32.3 GM/DL 32.2-35.5 RED CELL DISTRIBUTION WIDTH (BEAKER) (test code = 412) 19.9 % 11.7-14.4 H PLATELET COUNT (BEAKER) (test code = 756) 240 K/CU MM 150-450 MEAN PLATELET VOLUME (BEAKER) (test code = 754) 11.7 fL 9.4-12 .3 NUCLEATED RED BLOOD CELLS (BEAKER) (test code = 413) 0 /100 WBC 0 -0 NEUTROPHILS RELATIVE PERCENT (BEAKER) (test code = 429) 58 % LYMPHOCYTES RELATIVE PERCENT (BEAKER) (test code = 430) 31 % MONOCYTES RELATIVE PERCENT (BEAKER) (test code = 431) 6 % EOSINOPHILS RELATIVE PERCENT (BEAKER) (test code = 432) 4 % BASOPHILS RELATIVE PERCENT (BEAKER) (test code = 437) 1 % NEUTROPHILS ABSOLUTE COUNT (BEAKER) (test code = 670) 3.38 K/ L 1.56-6.13 LYMPHOCYTES ABSOLUTE COUNT (BEAKER) (test code = 414) 1.81 K/ L 1.18-3.74 MONOCYTES ABSOLUTE COUNT (BEAKER) (test code = 415) 0.36 K/ L 0. 24-0.36 EOSINOPHILS ABSOLUTE COUNT (BEAKER) (test code = 416) 0.24 K/ L 0.04-0.36 BASOPHILS ABSOLUTE COUNT (BEAKER) (test code = 417) 0.03 K/ L 0. 01-0.08 IMMATURE GRANULOCYTES-RELATIVE PERCENT (BEAKER) (test code = 2801) 0 % 0-1 US Abdomen [id number] 12:39:50Patient: KENNETH PLATT Date/Time12/11/2017 12:29 CDTReason for ExamNausea and vomitingReportUS Abdomen LimitedLOCATION: [id number]:Nausea and vomitingCOMPARISON: CT of the abdomen and pelvis 09/23/2015DISCUSSION: Ortiz scale and color Doppler images of the right upper quadrant of the abdomen were obtained. This exam is slightly limited due to suboptimal acoustic windows.LIVER/BILIARY: Hepatic echogenicity is normal. Liver contour is smooth. No focal hepatic lesion is seen. Right liver span is 18.2 cm, which is mildly enlarged. There is no evidence for intrahepatic or extrahepatic biliary ductal dilatation. The common bile duct measures 0.4 cm, which is within normal limits.GALLBLADDER: No gallstones are identified. The gallbladder wall measures 0.26 cm, which is within normal limits. There is no pericholecystic fluid or gallbladder hydrops. Sonographic Olivarez sign is negative.PANCREAS: Poorly visualized.RIGHT KIDNEY:The right kidney measures 10.7 cm.Renal echogenicity is within normal limits.No focal renal lesions or hydronephrosis is s een.VESSELS:There is hepatopetal flow in the main portal vein.The abdominal aort a and intrahepatic IVC are grossly unremarkable.IMPRESSION:1. Mild hepatomegal y.2. Otherwise, unremarkable right upper quadrant abdominal ultrasound. F inal Dictated by: MD Pemberton Alfred EDictated DT/TM: 12/11/2017 12:37 pmSigned by: MD Pemberton Alfred ESigned (Electronic Signature): 12/11/2017 12 :39 pmUS Pelvis Ltd w/Transvag if [id number] 12:37:35Patient: KENNETH PLATT Date/Time12/11/2017 12:30 CDTReason for ExamPain (please specify)ReportUS Pelvis Ltd w/Transvag if indicatedLOCATION: [id number]: Pain (please specify); nausea and vomiting; patient is approximately 32 weeks (per technologist not es)COMPARISON: CT of the abdomen and pelvis 09/23/2015TECHNIQUE: Focal ultrasou nd examination of the right lower quadrant of the abdomen was performed. This ex am is slightly limited due to suboptimal acoustic windows.FINDINGS:The appendix is not identified. No gross mass or free fluid is seen in the right lower quadra nt.IMPRESSION:The appendix is not identified. Final Dictated by: Mccoy MD, Julius EDictated DT/TM: 12/11/2017 12:35 pmSigned by: MD Nilay, Carlito lfleobardo ESigned (Electronic Signature): 12/11/2017 12:37 pmChlamydia/GC [id number] 16:27:00* Test Item Value Reference Range Interpretation Comments Chlamydia trachomatis, ERIN (test code = 818901) Negative Negati ve N Neisseria gonorrhoeae, ERIN (test code = 513519) Negative Negati ve N Culture, [id number] 08:46:00Specimen: UrineCollected: 11/12/2017 16:30 Status: Final Last Updated: 11/14/2017 08:46 Culture Result (Final) (Final) 11/13/17 No growth 24 hours 11/14/17 No growth 48 hours Antibody Screen - [id number] 09:04:00* Test Item Value Reference Range Interpretation Comments Antibody Screen (test code = ABSCR) Negative Blood Type and [id number] 08:43:00* Test Item Value Reference Range Interpretation Comments ABO type (test code = ABO) O Rh Type (test code = RH) Negative Hep B Surface [id number] 08:14:00* Test Item Value Reference Range Interpretation Comments Hep Bs Ag (test code = HBSAG) Nonreactive Non-Reactive A Rubella [id number] 23:55:00* Test Item Value Reference Range Interpretation Comments Rubella IgG (test code = RUBELIGG) Immune Immune N [id number] 18:53:00* Test Item Value Reference Range Interpretation Comments Amphetamine (test code = AMPH) Negative Negative N For diagnostic purposes only, positive results should always be assessedin conjunctionwith the patient's medical history,clinical examination and otherfindings.To fulfill legal requirements, a more specific alternate chemical methodmust be used inorder to obtain a Confirmed analytical result. GC/MS is the preferred confirmatory method. Barbiturates (test code = BENSON) Negative Negative N Benzodiazepine (test code = BARRIE) Negative Negative N Cocaine (test code = COCA) POSITIVE Negative A Methadone (test code = MTHD) Negative Negative N Opiates (test code = OPIA) POSITIVE Negative A PCP (test code = PCP) Negative Negative N Propoxyphene (test code = PROPOX) Negative Negative N THC (test code = THC) Negative Negative N Urinalysis [id number] 18:53:00* Test Item Value Reference Range Interpretation Comments Color (test code = COLOR) Yellow Yellow,Straw,Pl yellow N Clarity (test code = CLAR) Clear Clear N Specific [place] (test code = SPGR) 1.020 1.001-1.035 N pH (test code = PH) 6.5 5.0-9.0 N Ketone (test code = KET) Negative mg/dL Negative N Glucose (test code = GLUCUR) Negative mg/dL Negative N Protein (test code = PROT) Negative mg/dL Negative N Bilirubin (test code = BILI) Negative mg/dL Negative N Occult Blood (test code = UDOB) Negative Negative N Urobilinogen (test code = UROB) 0.2 mg/dL 0.2-1.0 N Nitrite (test code = NIT) Negative Negative N Leuk Esterase (test code = LEUK) Moderate Negative A Micros Exam (test code = MEXAM) Indicated Epithelial Cells (test code = EPI) 15-19 /LPF 0-30 A WBC, Urine (test code = UWBC) 0-2 /HPF 0-5 A RBC, Urine (test code = URBC) None Seen /HPF 0-5 A Mucous, Urine (test code = UMUC) Few /HPF Bacteria (test code = BACT) Few /HPF Yeast (test code = YEAST) Few /HPF HIV [id number] 18:30:00* Test Item Value Reference Range Interpretation Comments HIV 1/2 Antibody (test code = HIV1/2AB) Non-Reactive Non-Reactive N HIV1/2 Antibody screen result indicates the absence of HIV1 and HEL4zelejmrru.However, A Non-Reactive screen result does not rule out exposure orinfection. If an acute infection is suspected, HIV RNA Quantitative is recommended. P24 Antigen (test code = P24) Non-Reactive Non-Reactive N P24 Ag screen result indicates the absence of P24 antigen, which is anindicator of HIV-1 acute infection.However, A Non-Reactive screen does not rule out exposure or infection.If acute HIV-1 is suspected, HIV RNA Quantitative is recommended. Membrane [id number] 18:17:00* Test Item Value Reference Range Interpretation Comments Membrane Rupture (test code = DFMR) Neg: No Rupture of Membrane Neg: No Rupture of Membrane N The ROM (Rupture Of Membrane ) Plus test is for the in vitro detection ofPP12(also known as IGFBP-1) and Alpha-Fetoprotein (AFP) markers of amnioticfluidin vaginal discharge of women.Limitations of Test:Sample must be tested within 6 hours of collection. A significant amountof bloodin sample will cause erroneous results. Elevated serum, urine,cord bloodand amniotic fluid, as well as maternal serum levels of AFP, have beenreportedin the literature in various developmental disorders such as neural tubedefects,hypothyroidism, autoimmune states, congenital heart defects, cysticfibrosis,etc. ROM Plus has not been evaluated for potential interference in theseconditions.The ROM Plus test may report positive results in patients with intactmembranes and therefore decisions to induce labor should not be based solely on ROMPlus results. RPR, [id number] 02:06:00* Test Item Value Reference Range Interpretation Comments RPR (test code = RPR) Non-Reactive Non-Reactive N Thyroid Stimulating Hormone (TSH)2017-11-11 21:52:00* Test Item Value Reference Range Interpretation Comments TSH (test code = TSH) 1.64 mIU/mL 0.270-4.200 N Comprehensive Metabolic [id number] 21:52:00* Test Item Value Reference Range Interpretation Comments Sodium (test code = NA) 137 mmol/L 135-145 N Potassium (test code = K) 4.1 mmol/L 3.5-5.1 N Chloride (test code = CL) 101 mmol/L 98-105 N Carbon Dioxide (test code = CO2) 22 mmol/L 22-29 N Glucose (test code = GLU) 90 mg/dL 70-115 N Blood Urea Nitrogen (test code = BUN) 8 mg/dL 6-20 N Creatinine (test code = CREAT) 0.6 mg/dL 0.5-0.9 N Calcium (test code = CA) 8.5 mg/dL 8.3-10.5 N Prot Total (test code = TP) 6.6 g/dL 6.4-8.3 N Albumin (test code = ALB) 3.3 g/dL 3.5-5.2 L A/G Ratio (test code = AGRATIO) 1.0 Ratio Globulin (test code = GLOB) 3.3 2.9-3.1 H Bili Total (test code = TBIL) <0.1 mg/dL 0.1-0.9 L Alk Phos (test code = APHOS) 84 U/L 35-104 N AST (test code = AST) 11 U/L 1-32 N ALT (test code = ALT) 6 U/L 1-33 N BUN/Creatinine Ratio (test code = BCRATIO) 13.3 Anion Gap (test code = AGAP) 14 mmol/L 7-16 N Estimated GFR (test code = GFR) >60 mL/min/1.73m2 eGFR (estimated Glomerular Filtration Rate) is an estimated value,calculated from the patient's serum creatinine using the MDRD equation.It is NOT the patient's actual GFR. The eGFR provides a more clinicallyuseful measure of kidney disease than serum creatinine alone.This calculation takes sex and race into account, if the informationis provided. If the race is not provided, and the patient isAfrican-[place], multiply by 1.212. If sex is not provided, and thepatient is female, multiply by 0.742. Results for patients <18 years ofage have not been validated by the MDRD study and should be interpretedwith caution.eGFR Result Interpretation:eGFR > or = 60 is in the Normal RangeeGFR < 60 may mean kidney diseaseeGFR < 15 may mean kidney failureRanges recommended by the National Kidney Found ation,http://nkdep.nih.gov Lipid [id number] 21:52:00* Test Item Value Reference Range Interpretation Comments Cholesterol (test code = CHOL) 200 mg/dL 0-200 N Triglycerides (test code = TRIG) 133 mg/dL 9-200 N HDL (test code = HDL) 101 mg/dL 50-60 H Chol/HDL (test code = CHOLPHDL) 2.0 Ratio 0.0-4.4 N LDL, Calculated (test code = LDLC) 72 mg/dL 0-130 N (NOTE)RISK OF HEART DISEASEPublished by [place] Heart AssociationAnalyte Optimal Boderline Increased RiskCHOL <200 200-239 >240TRIG <150 150-199 >200HDL Male: >60 <40HDL Female: >60 <50LDL <100 130-159 >160LDL NEAR OPTIMAL IS 100-129 VLDL (test code = VLDL) 27 mg/dL 5-40 N LDL/HDL (test code = LDLPHDL) 1 CBC with [id number] 21:37:00* Test Item Value Reference Range Interpretation Comments WBC (test code = WBC) 6.3 K/cumm 4.4-10.5 N RBC (test code = RBC) 3.38 M/cumm 3.75-5.20 L Hemoglobin (test code = HGB) 9.4 gm/dL 12.2-14.8 L Hematocrit (test code = HCT) 28.5 % 36.5-44.4 L MCV (test code = MCV) 84.3 fL 80-100 N MCH (test code = MCH) 27.8 pg 27.0-32.5 N MCHC (test code = MCHC) 32.9 g/dL 32.0-37.5 N RDW (test code = RDW) 16.8 % 11.5-14.5 H Platelet Count (test code = PLTCT) 217 K/cumm 140-440 N MPV (test code = MPV) 9.2 fL Diff Method (test code = DIFFM) Auto Neutrophil (test code = NEUT) 61.0 % 36-70 N Lymphocyte (test code = LYMPH) 29.2 % 12-44 N Monocyte (test code = MONO) 6.9 % 0-11 N Eosinophil (test code = EOS) 2.5 % 0-7 N Basophil (test code = BASO) 0.4 % 0-2 N Neutro Abs (test code = ANEUT) 3.9 K/cumm 1.6-7.4 N Lymph Abs (test code = ALYMPH) 1.9 K/cumm 0.5-4.6 N [place] Abs (test code = AMONO) 0.4 K/cumm 0.0-1.2 N Eos Abs (test code = AEOS) 0.16 K/cumm 0.00-0.74 N Baso Abs (test code = ABASO) 0.0 K/cumm 0.00-0.21 N Hypochromic (test code = HYPO) Slight US OB LIMITED POSITION [id number] 21:08:25PREGNANCY ULTRASOUNDLOCATION: R 16History: Technique: Transabdominal sonography was performed.Findings: The maternal urinary bladder is unremarkable. The ovaries arenot identified. No obvious acute maternal pelvic abnormality is seen.There is a single live intrauterine fetus in breech presentation. Fetalheart rate is 135 BPM. Estimated gestational age by measurements is asfollows:Biparietal diameter: 6.66Head circumference: 23.04Femur length: 4.62Abdominal circumference: 22.73These average to an estimated gestational age of 26 weeks 1 day with anEDD of 02/16/2018.The placenta is grade 1 fundal posterior without abnormality. Amnioticfluid index is 18.5 cm.Estimated weight is 916 g.Limited views of the four-chamber heart, kidneys, stomach, bladder, andthree-vessel cord are unre markable.IMPRESSION:Live intrauterine 26 weeks 1 day gestation. No oth er obviousabnormality identified.URINE [id number] 10:03:00* Test Item Value Reference Range Interpretation Comments CULTURE (BEAKER) (test code = 1095) >100,000 col/mL skin vane POCT-GLUCOSE [id number] 15:29:00* Test Item Value Reference Range Interpretation Comments POC-GLUCOSE METER (BEAKER) (test code = 1538) 89 mg/dL 70-[address] [facility] [address] [facility] [address] URINALYSIS W/ [id number] 14:59:00* Test Item Value Reference Range Interpretation Comments COLOR (BEAKER) (test code = 470) Yellow CLARITY (BEAKER) (test code = 469) Hazy SPECIFIC GRAVITY UA (BEAKER) (test code = 468) 1.021 1.001-1 .035 PH UA (BEAKER) (test code = 467) 6.0 5.0-8.0 PROTEIN UA (BEAKER) (test code = 464) 30 mg/dL Negative A GLUCOSE UA (BEAKER) (test code = 365) Negative Negative KETONES UA (BEAKER) (test code = 371) 40 mg/dL Negative A BILIRUBIN UA (BEAKER) (test code = 462) Negative Negative BLOOD UA (BEAKER) (test code = 461) Negative Negative NITRITE UA (BEAKER) (test code = 465) Negative Negative LEUKOCYTE ESTERASE UA (BEAKER) (test code = 466) Large Negat karla A UROBILINOGEN UA (BEAKER) (test code = 463) 0.2 mg/dL 0.2-1.0 RBC UA (BEAKER) (test code = 519) 3 /HPF WBC UA (BEAKER) (test code = 520) 30 /HPF MUCUS (BEAKER) (test code = 1574) Many SQUAMOUS EPITHELIAL (BEAKER) (test code = 516) 49 /HPF SOURCE(BEAKER) (test code = 2795) SCREEN, [id number] 14:59:00* Test Item Value Reference Range Interpretation Comments TEST URINE (BEAKER) (test code = 583) Positive HCG, QUANTITATIVE, [id number] 12:34:00* Test Item Value Reference Range Interpretation Comments GONADOTROPIN, CHORIONIC (HCG) QUANT (BEAKER) (test code = 649) 2 226 mIU/mL 0-10 H Non- Females: <10 mIU/mL Females: Gestation Age Reference Range(mIU/mL) 0.2-1 Week 5-50 1-2 Weeks 50-500 2-3 Weeks 100-5,000 3-4 Weeks 500-10,000 4-5 Weeks 1,000-50,000 5-6 Weeks 10,000-100,000 6-8 Weeks 15,000-200,000 2-3 Months 10,000-100,000 BASIC METABOLIC PANEL 2017-11-09 12:27:00* Test Item Value Reference Range Interpretation Comments SODIUM (BEAKER) (test code = 381) 136 meq/L 136-145 POTASSIUM (BEAKER) (test code = 379) 3.6 meq/L 3.5-5.1 CHLORIDE (BEAKER) (test code = 382) 106 meq/L 98-107 CO2 (BEAKER) (test code = 355) 19 meq/L 22-29 L BLOOD UREA NITROGEN (BEAKER) (test code = 354) 10 mg/dL 7-21 CREATININE (BEAKER) (test code = 358) 0.52 mg/dL 0.57-1.25 L GLUCOSE RANDOM (BEAKER) (test code = 652) 68 mg/dL 70-105 L CALCIUM (BEAKER) (test code = 697) 8.6 mg/dL 8.4-10.2 EGFR (BEAKER) (test code = 1092) 165 mL/min/1.73 sq m ESTIMATED GFR IS NOT ACCURATE CREATININE CLEARANCE IN PREDICTING GLOMERULAR FILTRATION RATE. ESTIMATED GFR IS NOT APPLICABLE FOR DIALYSIS PATIENTS. CBC W/PLT COUNT & AUTO [id number] 12:07:00* Test Item Value Reference Range Interpretation Comments WHITE BLOOD CELL COUNT (BEAKER) (test code = 775) 8.1 K/ L 3.5- 10.5 RED BLOOD CELL COUNT (BEAKER) (test code = 761) 3.38 M/ L 3.93-5 .22 L HEMOGLOBIN (BEAKER) (test code = 410) 9.2 GM/DL 11.2-15.7 L HEMATOCRIT (BEAKER) (test code = 411) 29.0 % 34.1-44.9 L MEAN CORPUSCULAR VOLUME (BEAKER) (test code = 753) 85.8 fL 79. 4-94.8 MEAN CORPUSCULAR HEMOGLOBIN (BEAKER) (test code = 751) 27.2 pg 25.6-32.2 MEAN CORPUSCULAR HEMOGLOBIN CONC (BEAKER) (test code = 752) 31.7 GM/DL 32.2-35.5 L RED CELL DISTRIBUTION WIDTH (BEAKER) (test code = 412) 16.8 % 11.7-14.4 H PLATELET COUNT (BEAKER) (test code = 756) 246 K/CU MM 150-450 MEAN PLATELET VOLUME (BEAKER) (test code = 754) 12.0 fL 9.4-12 .3 NUCLEATED RED BLOOD CELLS (BEAKER) (test code = 413) 0 /100 WBC 0 -0 NEUTROPHILS RELATIVE PERCENT (BEAKER) (test code = 429) 73 % LYMPHOCYTES RELATIVE PERCENT (BEAKER) (test code = 430) 17 % MONOCYTES RELATIVE PERCENT (BEAKER) (test code = 431) 7 % EOSINOPHILS RELATIVE PERCENT (BEAKER) (test code = 432) 2 % BASOPHILS RELATIVE PERCENT (BEAKER) (test code = 437) 1 % NEUTROPHILS ABSOLUTE COUNT (BEAKER) (test code = 670) 5.93 K/ L 1.56-6.13 LYMPHOCYTES ABSOLUTE COUNT (BEAKER) (test code = 414) 1.37 K/ L 1.18-3.74 MONOCYTES ABSOLUTE COUNT (BEAKER) (test code = 415) 0.59 K/ L 0. 24-0.36 H EOSINOPHILS ABSOLUTE COUNT (BEAKER) (test code = 416) 0.14 K/ L 0.04-0.36 BASOPHILS ABSOLUTE COUNT (BEAKER) (test code = 417) 0.04 K/ L 0. 01-0.08 IMMATURE GRANULOCYTES-RELATIVE PERCENT (BEAKER) (test code = 2801) 0 % 0-1 TROPONIN [id number] 16:23:00* Test Item Value Reference Range Interpretation Comments TROPONIN I (BEAKER) (test code = 397) 0.03 ng/mL 0.00-0.15 Troponin I (TnI) levels must be interpreted in the context of the presenting sym ptoms and the clinical findings. Elevated TnI levels indicate myocardial damage, but are not specific for ischemic heart disease. Elevated TnI levels are seen in patients with other cardiac conditions (including myocarditis and congestive h eart failure), and slight TnI elevations occur in patients with other conditions , including sepsis, renal failure, acidosis, acute neurological disease, and per sistent tachyarrhythmia.COMPREHENSIVE METABOLIC [id number] 16:21:00* Test Item Value Reference Range Interpretation Comments TOTAL PROTEIN (BEAKER) (test code = 770) 7.0 gm/dL 6.0-8.5 ALBUMIN (BEAKER) (test code = 1145) 3.8 g/dL 3.5-5.0 ALKALINE PHOSPHATASE (BEAKER) (test code = 346) 73 U/L 30-115 BILIRUBIN TOTAL (BEAKER) (test code = 377) < mg/dL 0.1-1.2 SODIUM (BEAKER) (test code = 381) 139 meq/L 135-148 POTASSIUM (BEAKER) (test code = 379) 3.7 meq/L 3.6-5.5 CHLORIDE (BEAKER) (test code = 382) 109 meq/L 98-106 H CO2 (BEAKER) (test code = 355) 19 meq/L 20-29 L BLOOD UREA NITROGEN (BEAKER) (test code = 354) 9 mg/dL 10-26 L CREATININE (BEAKER) (test code = 358) 0.70 mg/dL 0.50-1.20 GLUCOSE RANDOM (BEAKER) (test code = 652) 85 mg/dL 70-110 CALCIUM (BEAKER) (test code = 697) 8.5 mg/dL 8.5-10.5 AST (SGOT) (BEAKER) (test code = 353) 15 U/L 5-40 ALT (SGPT) (BEAKER) (test code = 347) 13 U/L 5-50 EGFR (BEAKER) (test code = 1092) 117 mL/min/1.73 sq m ESTIMATED GFR IS NOT ACCURATE CREATININE CLEARANCE IN PREDICTING GLOMERULAR FILTRATION RATE. ESTIMATED GFR IS NOT APPLICABLE FOR DIALYSIS PATIENTS. [id number] 16:17:00* Test Item Value Reference Range Interpretation Comments LIPASE (BEAKER) (test code = 749) 9 U/L 6-51 URINALYSIS W/ [id number] 16:10:00* Test Item Value Reference Range Interpretation Comments COLOR (BEAKER) (test code = 470) Yellow CLARITY (BEAKER) (test code = 469) Cloudy SPECIFIC GRAVITY UA (BEAKER) (test code = 468) >= 1.001-1 .035 PH UA (BEAKER) (test code = 467) 6.0 5.0-8.0 PROTEIN UA (BEAKER) (test code = 464) 30 mg/dL Negative A GLUCOSE UA (BEAKER) (test code = 365) Negative Negative KETONES UA (BEAKER) (test code = 371) Negative Negative BILIRUBIN UA (BEAKER) (test code = 462) Negative Negative BLOOD UA (BEAKER) (test code = 461) Moderate Negative A NITRITE UA (BEAKER) (test code = 465) Negative Negative LEUKOCYTE ESTERASE UA (BEAKER) (test code = 466) Trace Negat karla A UROBILINOGEN UA (BEAKER) (test code = 463) 1.0 mg/dL 0.2-1.0 BACTERIA (BEAKER) (test code = 517) Few MUCUS (BEAKER) (test code = 1574) Moderate RBC UA-MANUAL (BEAKER) (test code = 1659) 5-10 /HPF WBC UA-MANUAL (BEAKER) (test code = 1661) 5-10 /HPF SQUAMOUS EPITHELIAL MANUAL (BEAKER) (test code = 1663) 10-20 /HPF SOURCE(BEAKER) (test code = 1445) SCREEN, [id number] 16:06:00* Test Item Value Reference Range Interpretation Comments TEST URINE (BEAKER) (test code = 583) Negative CBC W/PLT COUNT & AUTO [id number] 15:51:00* Test Item Value Reference Range Interpretation Comments WHITE BLOOD CELL COUNT (BEAKER) (test code = 775) 3.7 K/ L 4.0- 10.0 L RED BLOOD CELL COUNT (BEAKER) (test code = 761) 3.51 M/ L 4.00-5 .00 L HEMOGLOBIN (BEAKER) (test code = 410) 10.2 GM/DL 12.0-15.0 L HEMATOCRIT (BEAKER) (test code = 411) 31.3 % 36.0-45.0 L MEAN CORPUSCULAR VOLUME (BEAKER) (test code = 753) 89.0 fL 82. 0-99.0 MEAN CORPUSCULAR HEMOGLOBIN (BEAKER) (test code = 751) 29.1 pg 27.0-33.0 MEAN CORPUSCULAR HEMOGLOBIN CONC (BEAKER) (test code = 752) 32.6 GM/DL 32.0-36.0 RED CELL DISTRIBUTION WIDTH (BEAKER) (test code = 412) 15.8 % 10.3-14.2 H PLATELET COUNT (BEAKER) (test code = 756) 308 K/CU MM 150-430 MEAN PLATELET VOLUME (BEAKER) (test code = 754) 9.0 fL 6.5-10 .5 NUCLEATED RED BLOOD CELLS (BEAKER) (test code = 413) 0 /100 WBC 0 -0 NEUTROPHILS RELATIVE PERCENT (BEAKER) (test code = 429) 45 % LYMPHOCYTES RELATIVE PERCENT (BEAKER) (test code = 430) 38 % MONOCYTES RELATIVE PERCENT (BEAKER) (test code = 431) 13 % EOSINOPHILS RELATIVE PERCENT (BEAKER) (test code = 432) 4 % BASOPHILS RELATIVE PERCENT (BEAKER) (test code = 437) 0 % NEUTROPHILS ABSOLUTE COUNT (BEAKER) (test code = 670) 1.70 K/ L 1.80-8.00 L LYMPHOCYTES ABSOLUTE COUNT (BEAKER) (test code = 414) 1.40 K/ L 1.48-4.50 L MONOCYTES ABSOLUTE COUNT (BEAKER) (test code = 415) 0.50 K/ L 0. 00-1.30 EOSINOPHILS ABSOLUTE COUNT (BEAKER) (test code = 416) 0.10 K/ L 0.00-0.50 BASOPHILS ABSOLUTE COUNT (BEAKER) (test code = 417) 0.00 K/ L 0. 00-0.20 [id number] 09:09:00* Test Item Value Reference Range Interpretation Comments Amphetamine (test code = AMPH) Negative Negative N For diagnostic purposes only, positive results should always be assessedin conjunctionwith the patient's medical history,clinical examination and otherfindings.To fulfill legal requirements, a more specific alternate chemical methodmust be used inorder to obtain a Confirmed analytical result. GC/MS is the preferred confirmatory method. Barbiturates (test code = BENSON) Negative Negative N Benzodiazepine (test code = BARRIE) POSITIVE Negative A Cocaine (test code = COCA) POSITIVE Negative A Methadone (test code = MTHD) Negative Negative N Opiates (test code = OPIA) Negative Negative N PCP (test code = PCP) Negative Negative N Propoxyphene (test code = PROPOX) Negative Negative N THC (test code = THC) POSITIVE Negative A Comprehensive Metabolic [id number] 09:09:00* Test Item Value Reference Range Interpretation Comments Sodium (test code = NA) 135 mmol/L 135-145 N Potassium (test code = K) 4.0 mmol/L 3.5-5.1 N Chloride (test code = CL) 98 mmol/L 98-105 N Carbon Dioxide (test code = CO2) 22 mmol/L 22-29 N Glucose (test code = GLU) 77 mg/dL 70-115 N Blood Urea Nitrogen (test code = BUN) 6 mg/dL 6-20 N Creatinine (test code = CREAT) 0.7 mg/dL 0.5-0.9 N Calcium (test code = CA) 9.2 mg/dL 8.3-10.5 N Prot Total (test code = TP) 7.2 g/dL 6.4-8.3 N Albumin (test code = ALB) 4.1 g/dL 3.5-5.2 N A/G Ratio (test code = AGRATIO) 1.3 Ratio Globulin (test code = GLOB) 3.1 2.9-3.1 N Bili Total (test code = TBIL) 0.2 mg/dL 0.1-0.9 N Alk Phos (test code = APHOS) 77 U/L 35-104 N AST (test code = AST) 13 U/L 1-32 N ALT (test code = ALT) 8 U/L 1-33 N BUN/Creatinine Ratio (test code = BCRATIO) 8.6 Anion Gap (test code = AGAP) 15 mmol/L 7-16 N Estimated GFR (test code = GFR) >60 mL/min/1.73m2 eGFR (estimated Glomerular Filtration Rate) is an estimated value,calculated from the patient's serum creatinine using the MDRD equation.It is NOT the patient's actual GFR. The eGFR provides a more clinicallyuseful measure of kidney disease than serum creatinine alone.This calculation takes sex and race into account, if the informationis provided. If the race is not provided, and the patient isAfrican-[place], multiply by 1.212. If sex is not provided, and thepatient is female, multiply by 0.742. Results for patients <18 years ofage have not been validated by the MDRD study and should be interpretedwith caution.eGFR Result Interpretation:eGFR > or = 60 is in the Normal RangeeGFR < 60 may mean kidney diseaseeGFR < 15 may mean kidney failureRanges recommended by the National Kidney Found ation,http://nkdep.nih.gov Urinalysis [id number] 09:06:00* Test Item Value Reference Range Interpretation Comments Color (test code = COLOR) Straw Yellow,Straw,Pl yellow N Clarity (test code = CLAR) Cloudy Clear A Specific [place] (test code = SPGR) 1.015 1.001-1.035 N pH (test code = PH) 6.0 5.0-9.0 N Ketone (test code = KET) Negative mg/dL Negative N Glucose (test code = GLUCUR) Negative mg/dL Negative N Protein (test code = PROT) 25 mg/dL Negative A Bilirubin (test code = BILI) Negative mg/dL Negative N Occult Blood (test code = UDOB) Large Negative A Urobilinogen (test code = UROB) 0.2 mg/dL 0.2-1.0 N Nitrite (test code = NIT) Negative Negative N Leuk Esterase (test code = LEUK) Moderate Negative A Micros Exam (test code = MEXAM) Indicated Epithelial Cells (test code = EPI) 6-9 /LPF 0-30 A WBC, Urine (test code = UWBC) 15-19 /HPF 0-5 A RBC, Urine (test code = URBC) 4-5 /HPF 0-5 A Bacteria (test code = BACT) Moderate /HPF Trichomonas (test code = TRICH) Many /HPF CBC with [id number] 08:57:00* Test Item Value Reference Range Interpretation Comments WBC (test code = WBC) 5.7 K/cumm 4.4-10.5 N RBC (test code = RBC) 3.70 M/cumm 3.75-5.20 L Hemoglobin (test code = HGB) 10.8 gm/dL 12.2-14.8 L Hematocrit (test code = HCT) 33.4 % 36.5-44.4 L MCV (test code = MCV) 90.2 fL 80-100 N MCH (test code = MCH) 29.3 pg 27.0-32.5 N MCHC (test code = MCHC) 32.4 g/dL 32.0-37.5 N RDW (test code = RDW) 15.4 % 11.5-14.5 H Platelet Count (test code = PLTCT) 390 K/cumm 140-440 N MPV (test code = MPV) 8.4 fL Diff Method (test code = DIFFM) Auto Neutrophil (test code = NEUT) 71.6 % 36-70 H Lymphocyte (test code = LYMPH) 19.1 % 12-44 N Monocyte (test code = MONO) 7.0 % 0-11 N Eosinophil (test code = EOS) 1.8 % 0-7 N Basophil (test code = BASO) 0.4 % 0-2 N Neutro Abs (test code = ANEUT) 4.1 K/cumm 1.6-7.4 N Lymph Abs (test code = ALYMPH) 1.1 K/cumm 0.5-4.6 N [place] Abs (test code = AMONO) 0.4 K/cumm 0.0-1.2 N Eos Abs (test code = AEOS) 0.10 K/cumm 0.00-0.74 N Baso Abs (test code = ABASO) 0.0 K/cumm 0.00-0.21 N Hypochromic (test code = HYPO) Slight BHCG, Serum, [id number] 08:51:00* Test Item Value Reference Range Interpretation Comments Preg Qual [Se] (test code = BSHCG) Negative Negative N BLOOD [id number] 07:00:00* Test Item Value Reference Range Interpretation Comments CULTURE (BEAKER) (test code = 1095) No growth in 5 days BLOOD [id number] 07:00:00* Test Item Value Reference Range Interpretation Comments CULTURE (BEAKER) (test code = 1095) No growth in 5 days URINE [id number] 07:59:00* Test Item Value Reference Range Interpretation Comments CULTURE (BEAKER) (test code = 1095) 90-99,000 col/mL skin vane RAPID DRUG SCREEN, [id number] 05:09:00* Test Item Value Reference Range Interpretation Comments METHAMPHETAMINE SCREEN (BEAKER) (test code = 1435) Negative Neg ative BARBITURATE URINE (BEAKER) (test code = 725) Negative Negative BENZODIAZEPINE SCREEN URINE (BEAKER) (test code = 726) Positive Negative A COCAINE (METAB.) SCREEN (BEAKER) (test code = 1164) Positive Ne gative A OPIATE SCREEN URINE (BEAKER) (test code = 734) Positive Negativ e A CANNABINOID SCREEN URINE (BEAKER) (test code = 727) Positive Ne gative A TRICYCLIC SCREEN (BEAKER) (test code = 1437) Negative Negative AMPHETAMINE SCREEN URINE (BEAKER) (test code = 399) Negative Ne gative PHENCYCLIDINE SCREEN URINE (BEAKER) (test code = 608) Negative Negative OXYCODONE SCREEN URINE (BEAKER) (test code = 2761) Negative Neg ative DRUG CUTOFF CONC.Cocaine 300 ng/mL Cannabinoid 50 ng/mLBenzodiazepine 200 ng/mLBarbiturate 200 ng/mLPh encyclidine 25 ng/mLOpiate 300 ng/mLMethadone 300 ng/mLAmphetamine/ 1000 ng/mL MethamphetamineThis assay provides a n unconfirmed qualitative test result for the clinical management of patients in emergency situations. Chain of custody not maintained. Some uhlo-ryn-gjyxxlv me dications, as well as adulterants, may cause inaccurate results. Clinical correl ation should be applied. A more comprehensive drug screen or confirmation of a d etected drug may be performed upon request.Propoxyphene - NegativeSignify ER Nev[place] g Screen Test [facility] W/PLT COUNT & AUTO [id number] 05:04:00* Test Item Value Reference Range Interpretation Comments WHITE BLOOD CELL COUNT (BEAKER) (test code = 775) 6.5 K/ L 4.0- 10.0 RED BLOOD CELL COUNT (BEAKER) (test code = 761) 3.06 M/ L 4.00-5 .00 L HEMOGLOBIN (BEAKER) (test code = 410) 9.4 GM/DL 12.0-15.0 L HEMATOCRIT (BEAKER) (test code = 411) 28.9 % 36.0-45.0 L MEAN CORPUSCULAR VOLUME (BEAKER) (test code = 753) 94.6 fL 82. 0-99.0 MEAN CORPUSCULAR HEMOGLOBIN (BEAKER) (test code = 751) 30.9 pg 27.0-33.0 MEAN CORPUSCULAR HEMOGLOBIN CONC (BEAKER) (test code = 752) 32.6 GM/DL 32.0-36.0 RED CELL DISTRIBUTION WIDTH (BEAKER) (test code = 412) 15.1 % 10.3-14.2 H PLATELET COUNT (BEAKER) (test code = 756) 323 K/CU MM 150-430 MEAN PLATELET VOLUME (BEAKER) (test code = 754) 8.5 fL 6.5-10 .5 NUCLEATED RED BLOOD CELLS (BEAKER) (test code = 413) 0 /100 WBC 0 -0 NEUTROPHILS RELATIVE PERCENT (BEAKER) (test code = 429) 58 % LYMPHOCYTES RELATIVE PERCENT (BEAKER) (test code = 430) 29 % MONOCYTES RELATIVE PERCENT (BEAKER) (test code = 431) 9 % EOSINOPHILS RELATIVE PERCENT (BEAKER) (test code = 432) 4 % BASOPHILS RELATIVE PERCENT (BEAKER) (test code = 437) 1 % NEUTROPHILS ABSOLUTE COUNT (BEAKER) (test code = 670) 3.80 K/ L 1.80-8.00 LYMPHOCYTES ABSOLUTE COUNT (BEAKER) (test code = 414) 1.90 K/ L 1.48-4.50 MONOCYTES ABSOLUTE COUNT (BEAKER) (test code = 415) 0.60 K/ L 0. 00-1.30 EOSINOPHILS ABSOLUTE COUNT (BEAKER) (test code = 416) 0.30 K/ L 0.00-0.50 BASOPHILS ABSOLUTE COUNT (BEAKER) (test code = 417) 0.00 K/ L 0. 00-0.20 WET [id number] 05:03:00* Test Item Value Reference Range Interpretation Comments WBC WET PREP (BEAKER) (test code = 528) Few white blood cells seen CLUE CELLS (BEAKER) (test code = 526) Few clue cells seen YEAST WET PREP (BEAKER) (test code = 530) No budding yeast seen TRICH WET PREP (BEAKER) (test code = 531) Few Trichomonas seen BACT WET PREP (BEAKER) (test code = 532) Few bacteria seen COMPREHENSIVE METABOLIC [id number] 05:03:00* Test Item Value Reference Range Interpretation Comments TOTAL PROTEIN (BEAKER) (test code = 770) 7.2 gm/dL 6.0-8.5 ALBUMIN (BEAKER) (test code = 1145) 3.7 g/dL 3.5-5.0 ALKALINE PHOSPHATASE (BEAKER) (test code = 346) 78 U/L 30-115 BILIRUBIN TOTAL (BEAKER) (test code = 377) 0.3 mg/dL 0.1-1.2 SODIUM (BEAKER) (test code = 381) 141 meq/L 135-148 POTASSIUM (BEAKER) (test code = 379) 5.3 meq/L 3.6-5.5 CHLORIDE (BEAKER) (test code = 382) 108 meq/L 98-106 H CO2 (BEAKER) (test code = 355) 21 meq/L 20-29 BLOOD UREA NITROGEN (BEAKER) (test code = 354) 15 mg/dL 10-26 CREATININE (BEAKER) (test code = 358) 0.70 mg/dL 0.50-1.20 GLUCOSE RANDOM (BEAKER) (test code = 652) 93 mg/dL 70-110 CALCIUM (BEAKER) (test code = 697) 8.6 mg/dL 8.5-10.5 AST (SGOT) (BEAKER) (test code = 353) 13 U/L 5-40 ALT (SGPT) (BEAKER) (test code = 347) 16 U/L 5-50 EGFR (BEAKER) (test code = 1092) 117 mL/min/1.73 sq m ESTIMATED GFR IS NOT ACCURATE CREATININE CLEARANCE IN PREDICTING GLOMERULAR FILTRATION RATE. ESTIMATED GFR IS NOT APPLICABLE FOR DIALYSIS PATIENTS. URINALYSIS W/ [id number] 04:59:00* Test Item Value Reference Range Interpretation Comments COLOR (BEAKER) (test code = 470) Yellow CLARITY (BEAKER) (test code = 469) Slightly Cloudy SPECIFIC GRAVITY UA (BEAKER) (test code = 468) 1.025 1.001-1 .035 PH UA (BEAKER) (test code = 467) 6.0 5.0-8.0 PROTEIN UA (BEAKER) (test code = 464) 30 mg/dL Negative A GLUCOSE UA (BEAKER) (test code = 365) Negative Negative KETONES UA (BEAKER) (test code = 371) Negative Negative BILIRUBIN UA (BEAKER) (test code = 462) Negative Negative BLOOD UA (BEAKER) (test code = 461) Large Negative A NITRITE UA (BEAKER) (test code = 465) Negative Negative LEUKOCYTE ESTERASE UA (BEAKER) (test code = 466) Small Negat karla A UROBILINOGEN UA (BEAKER) (test code = 463) 1.0 mg/dL 0.2-1.0 BACTERIA (BEAKER) (test code = 517) Few MUCUS (BEAKER) (test code = 1574) Few RBC UA-MANUAL (BEAKER) (test code = 1659) 50-100 /HPF WBC UA-MANUAL (BEAKER) (test code = 1661) 20-50 /HPF SQUAMOUS EPITHELIAL MANUAL (BEAKER) (test code = 1663) 10-20 /HPF SOURCE(BEAKER) (test code = 2795) LACTIC ACID, VENOUS, WHOLE [id number] 04:55:00* Test Item Value Reference Range Interpretation Comments LACTATE BLOOD VENOUS (2) (BEAKER) (test code = 2872) 0.5 mmol/L 0 .5-2.2 Effective 12/06/2015: Units/Reference Range ChangeNew: 0.5-2.2 mmol/L Previous: 5 -18 mg/dLCBC W/PLT COUNT & AUTO [id number] 09:16:00* Test Item Value Reference Range Interpretation Comments WHITE BLOOD CELL COUNT (BEAKER) (test code = 775) 8.2 K/ L 4.0- 10.0 RED BLOOD CELL COUNT (BEAKER) (test code = 761) 3.67 M/ L 4.00-5 .00 L HEMOGLOBIN (BEAKER) (test code = 410) 12.6 GM/DL 12.0-15.0 HEMATOCRIT (BEAKER) (test code = 411) 35.6 % 36.0-45.0 L MEAN CORPUSCULAR VOLUME (BEAKER) (test code = 753) 97.2 fL 82. 0-99.0 MEAN CORPUSCULAR HEMOGLOBIN (BEAKER) (test code = 751) 34.4 pg 27.0-33.0 H MEAN CORPUSCULAR HEMOGLOBIN CONC (BEAKER) (test code = 752) 35.4 GM/DL 32.0-36.0 RED CELL DISTRIBUTION WIDTH (BEAKER) (test code = 412) 15.6 % 10.3-14.2 H PLATELET COUNT (BEAKER) (test code = 756) 197 K/CU MM 150-430 MEAN PLATELET VOLUME (BEAKER) (test code = 754) 8.2 fL 6.5-10 .5 NUCLEATED RED BLOOD CELLS (BEAKER) (test code = 413) 0 /100 WBC 0 -0 NEUTROPHILS RELATIVE PERCENT (BEAKER) (test code = 429) 67 % LYMPHOCYTES RELATIVE PERCENT (BEAKER) (test code = 430) 22 % MONOCYTES RELATIVE PERCENT (BEAKER) (test code = 431) 9 % EOSINOPHILS RELATIVE PERCENT (BEAKER) (test code = 432) 2 % BASOPHILS RELATIVE PERCENT (BEAKER) (test code = 437) 0 % NEUTROPHILS ABSOLUTE COUNT (BEAKER) (test code = 670) 5.50 K/ L 1.80-8.00 LYMPHOCYTES ABSOLUTE COUNT (BEAKER) (test code = 414) 1.79 K/ L 1.48-4.50 MONOCYTES ABSOLUTE COUNT (BEAKER) (test code = 415) 0.72 K/ L 0. 00-1.30 EOSINOPHILS ABSOLUTE COUNT (BEAKER) (test code = 416) 0.14 K/ L 0.00-0.50 BASOPHILS ABSOLUTE COUNT (BEAKER) (test code = 417) 0.02 K/ L 0. 00-0.20 0.73Bep-[id number] 08:23:00* Test Item Value Reference Range Interpretation Comments NT ProBnp (test code = PBNP) 7 pg/mL 0-124 N CK [id number] 07:41:00* Test Item Value Reference Range Interpretation Comments CK (test code = CK) n/a U/L 26-192 N CKMB (test code = CKMB) <1.0 ng/mL 0.0-2.8 N CKMB% (test code = CKMBP) No Calc % 0.0-3.4 N Un able to calculate due to one or more values out of test measurement range. BHCG, Serum, [id number] 07:38:00* Test Item Value Reference Range Interpretation Comments B hCG, Quant (test code = BHCGQT) 6365 mIU/mL Weeks of Gestation Ranges (mIU/mL)3 weeks 5.40 - 72.04 weeks 10.2 - 7085 weeks 217 - 64404 weeks 152 - 629698 weeks 4059 - 1679450 weeks 05563 - 3373426 weeks 12531 - [id number] weeks 89625 - 78920861 weeks 25282 - 58986924 weeks 41472 - 4530392 weeks 35584 - 1413837 weeks 8904 - 5343408 weeks 8240 - 9376652 weeks 9649 - 10694 Comprehensive Metabolic [id number] 07:26:00* Test Item Value Reference Range Interpretation Comments Sodium (test code = NA) 136 mmol/L 135-145 N Potassium (test code = K) 3.9 mmol/L 3.5-5.1 N Chloride (test code = CL) 102 mmol/L 98-105 N Carbon Dioxide (test code = CO2) 20 mmol/L 22-29 L Glucose (test code = GLU) 80 mg/dL 70-115 N Blood Urea Nitrogen (test code = BUN) 10 mg/dL 6-20 N Creatinine (test code = CREAT) 0.5 mg/dL 0.5-0.9 N Calcium (test code = CA) 8.6 mg/dL 8.3-10.5 N Prot Total (test code = TP) 6.4 g/dL 6.4-8.3 N Albumin (test code = ALB) 3.5 g/dL 3.5-5.2 N A/G Ratio (test code = AGRATIO) 1.2 Ratio Globulin (test code = GLOB) 2.9 2.9-3.1 N Bili Total (test code = TBIL) 0.2 mg/dL 0.1-0.9 N Alk Phos (test code = APHOS) 85 U/L 35-104 N AST (test code = AST) 11 U/L 1-32 N ALT (test code = ALT) 6 U/L 1-33 N BUN/Creatinine Ratio (test code = BCRATIO) 20.0 Anion Gap (test code = AGAP) 14 mmol/L 7-16 N Estimated GFR (test code = GFR) >60 mL/min/1.73m2 eGFR (estimated Glomerular Filtration Rate) is an estimated value,calculated from the patient's serum creatinine using the MDRD equation.It is NOT the patient's actual GFR. The eGFR provides a more clinicallyuseful measure of kidney disease than serum creatinine alone.This calculation takes sex and race into account, if the informationis provided. If the race is not provided, and the patient isAfrican-[place], multiply by 1.212. If sex is not provided, and thepatient is female, multiply by 0.742. Results for patients <18 years ofage have not been validated by the MDRD study and should be interpretedwith caution.eGFR Result Interpretation:eGFR > or = 60 is in the Normal RangeeGFR < 60 may mean kidney diseaseeGFR < 15 may mean kidney failureRanges recommended by the National Kidney Found ation,http://nkdep.nih.gov Troponin [id number] 07:25:00* Test Item Value Reference Range Interpretation Comments Troponin T (test code = CARRIE) <0.010 ng/mL 0.000-0.090 N D-Dimer, [id number] 06:59:00* Test Item Value Reference Range Interpretation Comments D-Dimer, Quant (test code = DDQNT) 1302 ng/mL 0-500 H Prothrombin [id number] 06:56:00* Test Item Value Reference Range Interpretation Comments PT (test code = PT) 11.30 seconds 9.78-13.35 N INR (test code = INR) 0.99 Ratio 0.6-1.2 N Partial Thromboplastin [id number] 06:56:00* Test Item Value Reference Range Interpretation Comments aPTT (test code = PTT) 30.80 seconds 24.39-37.25 N CBC with [id number] 06:47:00* Test Item Value Reference Range Interpretation Comments WBC (test code = WBC) 6.9 K/cumm 4.4-10.5 N RBC (test code = RBC) 3.37 M/cumm 3.75-5.20 L Hemoglobin (test code = HGB) 9.8 gm/dL 12.2-14.8 L Hematocrit (test code = HCT) 30.5 % 36.5-44.4 L MCV (test code = MCV) 90.5 fL 80-100 N MCH (test code = MCH) 28.9 pg 27.0-32.5 N MCHC (test code = MCHC) 31.9 g/dL 32.0-37.5 L RDW (test code = RDW) 15.7 % 11.5-14.5 H Platelet Count (test code = PLTCT) 211 K/cumm 140-440 N MPV (test code = MPV) 8.7 fL Diff Method (test code = DIFFM) Auto Neutrophil (test code = NEUT) 67.8 % 36-70 N Lymphocyte (test code = LYMPH) 21.1 % 12-44 N Monocyte (test code = MONO) 8.5 % 0-11 N Eosinophil (test code = EOS) 2.2 % 0-7 N Basophil (test code = BASO) 0.4 % 0-2 N Neutro Abs (test code = ANEUT) 4.7 K/cumm 1.6-7.4 N Lymph Abs (test code = ALYMPH) 1.5 K/cumm 0.5-4.6 N [place] Abs (test code = AMONO) 0.6 K/cumm 0.0-1.2 N Eos Abs (test code = AEOS) 0.15 K/cumm 0.00-0.74 N Baso Abs (test code = ABASO) 0.0 K/cumm 0.00-0.21 N Sed Rate ESR ([place])2016-10-13 12:37:00* Test Item Value Reference Range Interpretation Comments ESR (test code = HESR) 52 mm/Hr 0-20 H Comprehensive Metabolic [id number] 09:23:00* Test Item Value Reference Range Interpretation Comments Sodium (test code = NA) 131 mmol/L 135-145 L Potassium (test code = K) 4.5 mmol/L 3.5-5.1 N Chloride (test code = CL) 102 mmol/L 98-105 N Carbon Dioxide (test code = CO2) 19 mmol/L 22-29 L Glucose (test code = GLU) 69 mg/dL 70-115 L Blood Urea Nitrogen (test code = BUN) 8 mg/dL 6-20 N Creatinine (test code = CREAT) 0.3 mg/dL 0.5-0.9 L Calcium (test code = CA) 8.4 mg/dL 8.3-10.5 N Prot Total (test code = TP) 6.2 g/dL 6.4-8.3 L Albumin (test code = ALB) 3.2 g/dL 3.5-5.2 L A/G Ratio (test code = AGRATIO) 1.1 Ratio Globulin (test code = GLOB) 3.0 2.9-3.1 N Bili Total (test code = TBIL) <0.1 mg/dL 0.1-0.9 L Alk Phos (test code = APHOS) 68 U/L 35-104 N AST (test code = AST) 16 U/L 1-32 N ALT (test code = ALT) <5 U/L 1-33 N BUN/Creatinine Ratio (test code = BCRATIO) 26.7 Anion Gap (test code = AGAP) 10 mmol/L 7-16 N Estimated GFR (test code = GFR) >60 mL/min/1.73m2 eGFR (estimated Glomerular Filtration Rate) is an estimated value,calculated from the patient's serum creatinine using the MDRD equation.It is NOT the patient's actual GFR. The eGFR provides a more clinicallyuseful measure of kidney disease than serum creatinine alone.This calculation takes sex and race into account, if the informationis provided. If the race is not provided, and the patient isAfrican-[place], multiply by 1.212. If sex is not provided, and thepatient is female, multiply by 0.742. Results for patients <18 years ofage have not been validated by the MDRD study and should be interpretedwith caution.eGFR Result Interpretation:eGFR > or = 60 is in the Normal RangeeGFR < 60 may mean kidney diseaseeGFR < 15 may mean kidney failureRanges recommended by the National Kidney Found ation,http://nkdep.nih.gov Vancomycin, [id number] 09:21:00* Test Item Value Reference Range Interpretation Comments Orlando Jones (test code = VANTR) <1.7 ug/mL 10.0-20.0 L Culture, [id number] 09:03:00Specimen: UrineCollected: 10/11/2016 10:55 Status: Final Last Updated: 10/13/2016 09:03 Culture Result (Final) (Final) 10/12/16 No growth 24 hours 10/13/2016 No growth 48 hours CBC with [id number] 08:34:00* Test Item Value Reference Range Interpretation Comments WBC (test code = WBC) 5.6 K/cumm 4.4-10.5 N RBC (test code = RBC) 3.13 M/cumm 3.75-5.20 L Hemoglobin (test code = HGB) 9.0 gm/dL 12.2-14.8 L Hematocrit (test code = HCT) 28.9 % 36.5-44.4 L MCV (test code = MCV) 92.1 fL 80-100 N MCH (test code = MCH) 28.7 pg 27.0-32.5 N MCHC (test code = MCHC) 31.2 g/dL 32.0-37.5 L RDW (test code = RDW) 15.7 % 11.5-14.5 H Platelet Count (test code = PLTCT) 219 K/cumm 140-440 N MPV (test code = MPV) 8.5 fL Diff Method (test code = DIFFM) Auto Neutrophil (test code = NEUT) 67.7 % 36-70 N Lymphocyte (test code = LYMPH) 20.8 % 12-44 N Monocyte (test code = MONO) 8.7 % 0-11 N Eosinophil (test code = EOS) 2.5 % 0-7 N Basophil (test code = BASO) 0.4 % 0-2 N Neutro Abs (test code = ANEUT) 3.8 K/cumm 1.6-7.4 N Lymph Abs (test code = ALYMPH) 1.2 K/cumm 0.5-4.6 N [place] Abs (test code = AMONO) 0.5 K/cumm 0.0-1.2 N Eos Abs (test code = AEOS) 0.14 K/cumm 0.00-0.74 N Baso Abs (test code = ABASO) 0.0 K/cumm 0.00-0.21 N RPR, [id number] 19:58:00* Test Item Value Reference Range Interpretation Comments RPR (test code = RPR) Non-Reactive Non-Reactive N Rubella [id number] 05:46:00* Test Item Value Reference Range Interpretation Comments Rubella IgG (test code = RUBELIGG) Immune Immune N RPR, [id number] 05:46:00* Test Item Value Reference Range Interpretation Comments RPR (test code = RPR) Non-Reactive Non-Reactive N HIV [id number] 15:43:00* Test Item Value Reference Range Interpretation Comments HIV 1/2 Antibody (test code = HIV1/2AB) Non-Reactive Non-Reactive N HIV1/2 Antibody screen result indicates the absence of HIV1 and RWD8rlzaeykfd.However, A Non-Reactive screen result does not rule out exposure orinfection. If an acute infection is suspected, HIV RNA Quantitative is recommended. P24 Antigen (test code = P24) Non-Reactive Non-Reactive N P24 Ag screen result indicates the absence of P24 antigen, which is anindicator of HIV-1 acute infection.However, A Non-Reactive screen does not rule out exposure or infection.If acute HIV-1 is suspected, HIV RNA Quantitative is recommended. Antibody Screen - [id number] 13:41:00* Test Item Value Reference Range Interpretation Comments Antibody Screen (test code = ABSCR) Negative Hep B Surface [id number] 12:19:00* Test Item Value Reference Range Interpretation Comments Hep Bs Ag (test code = HBSAG) Nonreactive Non-Reactive A [id number] 12:04:00* Test Item Value Reference Range Interpretation Comments Amphetamine (test code = AMPH) Negative Negative N For diagnostic purposes only, positive results should always be assessedin conjunctionwith the patient's medical history,clinical examination and otherfindings.To fulfill legal requirements, a more specific alternate chemical methodmust be used inorder to obtain a Confirmed analytical result. GC/MS is the preferred confirmatory method. Barbiturates (test code = BENSON) Negative Negative N Benzodiazepine (test code = BARRIE) Negative Negative N Cocaine (test code = COCA) POSITIVE Negative A Methadone (test code = MTHD) Negative Negative N Opiates (test code = OPIA) POSITIVE Negative A PCP (test code = PCP) Negative Negative N Propoxyphene (test code = PROPOX) Negative Negative N THC (test code = THC) Negative Negative N Comprehensive Metabolic [id number] 12:04:00* Test Item Value Reference Range Interpretation Comments Sodium (test code = NA) 133 mmol/L 135-145 L Potassium (test code = K) 4.0 mmol/L 3.5-5.1 N Chloride (test code = CL) 101 mmol/L 98-105 N Carbon Dioxide (test code = CO2) 19 mmol/L 22-29 L Glucose (test code = GLU) 81 mg/dL 70-115 N Blood Urea Nitrogen (test code = BUN) 5 mg/dL 6-20 L Creatinine (test code = CREAT) 0.4 mg/dL 0.5-0.9 L Calcium (test code = CA) 8.8 mg/dL 8.3-10.5 N Prot Total (test code = TP) 7.0 g/dL 6.4-8.3 N Albumin (test code = ALB) 3.8 g/dL 3.5-5.2 N A/G Ratio (test code = AGRATIO) 1.2 Ratio Globulin (test code = GLOB) 3.2 2.9-3.1 H Bili Total (test code = TBIL) 0.3 mg/dL 0.1-0.9 N Alk Phos (test code = APHOS) 77 U/L 35-104 N AST (test code = AST) 10 U/L 1-32 N ALT (test code = ALT) 5 U/L 1-33 N BUN/Creatinine Ratio (test code = BCRATIO) 12.5 Anion Gap (test code = AGAP) 13 mmol/L 7-16 N Estimated GFR (test code = GFR) >60 mL/min/1.73m2 eGFR (estimated Glomerular Filtration Rate) is an estimated value,calculated from the patient's serum creatinine using the MDRD equation.It is NOT the patient's actual GFR. The eGFR provides a more clinicallyuseful measure of kidney disease than serum creatinine alone.This calculation takes sex and race into account, if the informationis provided. If the race is not provided, and the patient isAfrican-[place], multiply by 1.212. If sex is not provided, and thepatient is female, multiply by 0.742. Results for patients <18 years ofage have not been validated by the MDRD study and should be interpretedwith caution.eGFR Result Interpretation:eGFR > or = 60 is in the Normal RangeeGFR < 60 may mean kidney diseaseeGFR < 15 may mean kidney failureRanges recommended by the National Kidney Found ation,http://nkdep.nih.gov Blood Type and [id number] 11:51:00* Test Item Value Reference Range Interpretation Comments ABO type (test code = ABO) O Rh Type (test code = RH) Negative Urinalysis [id number] 11:41:00* Test Item Value Reference Range Interpretation Comments Color (test code = COLOR) Yellow Yellow,Straw,Pl yellow N Clarity (test code = CLAR) Sl Cloudy Clear A Specific [place] (test code = SPGR) 1.016 1.001-1.035 N pH (test code = PH) 7.0 5.0-9.0 N Ketone (test code = KET) Negative mg/dL Negative N Glucose (test code = GLUCUR) Negative mg/dL Negative N Protein (test code = PROT) Negative mg/dL Negative N Bilirubin (test code = BILI) Negative mg/dL Negative N Occult Blood (test code = UDOB) Negative Negative N Urobilinogen (test code = UROB) 1.0 mg/dL 0.2-1.0 N Nitrite (test code = NIT) Negative Negative N Leuk Esterase (test code = LEUK) Negative Negative N Micros Exam (test code = MEXAM) Not indicated CBC with [id number] 11:37:00* Test Item Value Reference Range Interpretation Comments WBC (test code = WBC) 6.7 K/cumm 4.4-10.5 N RBC (test code = RBC) 3.36 M/cumm 3.75-5.20 L Hemoglobin (test code = HGB) 9.6 gm/dL 12.2-14.8 L Hematocrit (test code = HCT) 30.4 % 36.5-44.4 L MCV (test code = MCV) 90.5 fL 80-100 N MCH (test code = MCH) 28.6 pg 27.0-32.5 N MCHC (test code = MCHC) 31.6 g/dL 32.0-37.5 L RDW (test code = RDW) 15.6 % 11.5-14.5 H Platelet Count (test code = PLTCT) 217 K/cumm 140-440 N MPV (test code = MPV) 9.0 fL Diff Method (test code = DIFFM) Auto Neutrophil (test code = NEUT) 71.3 % 36-70 H Lymphocyte (test code = LYMPH) 19.4 % 12-44 N Monocyte (test code = MONO) 7.0 % 0-11 N Eosinophil (test code = EOS) 1.9 % 0-7 N Basophil (test code = BASO) 0.3 % 0-2 N Neutro Abs (test code = ANEUT) 4.8 K/cumm 1.6-7.4 N Lymph Abs (test code = ALYMPH) 1.3 K/cumm 0.5-4.6 N [place] Abs (test code = AMONO) 0.5 K/cumm 0.0-1.2 N Eos Abs (test code = AEOS) 0.13 K/cumm 0.00-0.74 N Baso Abs (test code = ABASO) 0.0 K/cumm 0.00-0.21 N
--- NOTE | 2019-12-30 22:01 | Emergency Department Note ---
History of Present Illnes History of Present Illness Chief Complaint: Abdominal Complaints History of Present Illness This is a 34 year old female with a history of recurrent UTI and "colitis," who presents for evaluation of abdominal pain x 1 month, along with nausea and vomiting that has progressively worsened over the past week. Pt had 2-3 episodes of loose stool today, without visible blood and mucous. Pt has some paper work with her from "[facility]," dated 12/28 at 13:30 pm with dx of acute abdominal pain. acute ulcerative colitis, involving the transverse colon, and moderate dehydration. Pt states that she had a CT of abd/pelvis at this facility just over 24 hours ago. She was prescribed Cipro, Flagyl and phenergan tablets, since she can't take Zofran. Pt state that she has vomited 9-10 x today and has been unable to take her medications and keep them down. She states that she was told to "go to a hospital, if your symptoms worsen, to be admitted." She denies any fever or chills. Pt was seen here on 11/30 and diagnosed with Pelvic Pain, Dysuria and vomiting with nausea. Pt was treated with Bactrim, Promethazine, and Tylenol #3. Pt states that her pain has not subsided, since that visit. [facility] [place] Website was queried and patient has been prescribed Tyelnol #3 at various facilities, on the following dates: 11/06/19, 12/01/19, 12/18/19, 12/25/19, and 12/29/19, mostly in quantities of # 15. Historian: Patient Arrival Mode: Car [employer] Truck [employer] Required: No Onset (how long ago): month(s) (1) Location: diffuse abdomen Quality: pressure, sharp stabbing, crampy Radiation: other (to pelvis) Severity: severe Onset quality: gradual Duration (how long): month(s) (1) Timing of current episode: constant Progression: worsening Chronicity: recurrent Relieving factors: none Exacerbating factors: none Associated symptoms: denies other symptoms (f/c, loss of appetite, ) Past Medical/Family History Physician Review I have reviewed the patient's past medical and family history. Any updates have been documented here. Past Medical History Recent Fever: No Clinical Suspicion of Infectio: No New/Unexplained Change in Ment: No Past Medical History: UTI's Other Medical History: "colitis" Past Surgical History: (x2) Other Surgery: Osteomyelitis Social History Smoking Cessation: Current every day smoker Counseling Performed: Yes Alcohol Use: None Any Illegal Drug Use: No TB Exposure/Symptoms: No Physically hurt or threatened: No Other Any Pre-Existing Lines (PICC,: No Is patient up to date on immun: No Last Flu: NO Last Pneumovax: NO Review of Systems Review of Systems Constitutional: as per HPI, malaise EENTM: no symptoms Cardiovascular: no symptoms Respiratory: no symptoms Gastrointestinal: abdominal pain, diarrhea, nausea, vomiting Genitourinary: dysuria, frequency Musculoskeletal: no symptoms Neurological: no symptoms Review of other systems All other systems reviewed and negative. Physical Exam Related Data Allergies: Coded Allergies: Penicillins (Verified Allergy, Severe, 12/30/19) ondansetron (Verified Allergy, Severe, 12/30/19) phenazopyridine (Verified Allergy, Severe, 12/30/19) NSAIDS (Non-Steroidal Anti-Inflamma (Verified Allergy, Intermediate, 12/30/19) tramadol (Verified Allergy, Intermediate, 12/30/19) Vital signs reviewed: Yes Physical Exam CONSTITUTIONAL Pt refuses physcial exam, "I just wanna go home." Constitutional: well-developed, well-nourished HENT EYES NECK PULMONARY CARDIOVASCULAR GASTROINTESTINAL GENITOURINARY SKIN MUSCULOSKELETAL NEUROLOGICAL PSYCHOLOGICAL Critical Care Time Subsequent provider I assumed direction of critical care for this patient from another provider of my specialty. Assessment & Plan Assessment & Plan Final Impression: (1) GENERALIZED ABDOMINAL PAIN (2) NAUSEA WITH VOMITING, UNSPECIFIED (3) DIARRHEA, UNSPECIFIED Assessment & Plan - Interviewed patient at length, to obtain history and to try and understand what is going on with her, why she has been seen at various facilities, and what she is hoping to achieve in this visit. - Explained that if she has truly vomited 9 or 10 times today, then she likely needs IVF and blood work. I stated that we would attempt to obtain the CT report from the ER where she seen yesterday, as I have no desire to radiate her again with another CT scan. Pt cannot recall how many CT scans she has had done. I would need the results of the CT scan to review, in order to know exactly what is going on with her. - Pt then stated that "she didn't want to be stuck like a pin cushion," as they had to place an IV in her neck last night. She stated that "she just wants to go home." She refused IV placement, physicial exam and lab draws. Pt states that she will follow-up tomorrow. - pt eloped from the ED. She was informed that she could return at anytime for further evaluation, if desired. Pt ambulated out of the ED, without assistance. Depart Disposition: ELOPED Home Meds Active Scripts Acetaminophen With Codeine (TYLENOL WITH CODEINE #3 TABLET) 1 Each Tablet, 300 MG PO QID PRN for pain for 3 Days, #12 TAB Prov:ED WAGNER MD 12/01/19 Promethazine Hcl (PHENADOZ) 25 Mg Supp.rect, 25 MG RC TID PRN for nausea, vomiting for 5 Days, #15 Prov:ED WAGNER MD 12/01/19 Sulfamethoxazole/Trimethoprim (BACTRIM DS TABLET) 1 Each Tablet, 1 EACH PO BID for 7 Days, #14 Prov:ED WAGNER MD 12/01/19 TREE IRBY MD December 30, 2019 22:01
--- NOTE | 2019-12-30 22:03 | NUR ---
PT STATED TO DR IRBY THAT SHE JUST WANTS TO BE ADMITTED TO THE HOSPITAL, SHE DOES NOT WANT AN EXAM, IV OR LABS DRAWN, PT STATED "SHE DOSN'T WANT TO BE A PIN CUSION" DR IRBY INFORMED PT OF THE NEED FOR DIAGNOSTIC TESTING PRIOR TO ADMISSION, PT STATED SHE WAS JUST GOING TO GO HOME AND REFUSED ALL MEDICAL SERVICES, DR IRBY AWARE, PT GOT UP AND WALKED OUT.
== END 2019-12-30 22:06 | disposition left against medical advice (07) ==
LOC: FSED 20:40
DX: R10.84 Generalized abdominal pain (principal); R11.2 Nausea with vomiting, unspecified; R19.7 Diarrhea, unspecified

== ENCOUNTER 2020-02-28 12:59 | Emergency (ER) | payer SELFPAY ==
[~2020-02-28] VITALS: Ht 165.1 cm; Wt 68.0 kg
[2020-02-28] MEDS ORDERED: DIATRIZOATE MEGL/DIATRIZOA SOD 30 ML BTL PO ONE (14:52)
--- NOTE | 2020-02-28 15:20 | NUR ---
Called [facility] to transport pt to CT
[2020-02-28] MEDS ORDERED: HYDROCODONE/APAP 5MG-325MG TAB PO ONE ×2 (15:30→18:15)
--- NOTE | 2020-02-28 18:06 | Diagnostic Imaging Report ---
EXAM: CT Abdomen and Pelvis WITHOUT contrast INDICATION: Diffuse abdominal pain. COMPARISON: CT abdomen/pelvis on 12/01/2019. TECHNIQUE: Abdomen and pelvis were scanned utilizing a multidetector helical scanner from the lung base to the pubic symphysis without administration of IV contrast. Absence of intravenous contrast decreases sensitivity for detection of focal lesions and vascular pathology. Coronal and sagittal reformations were obtained. Routine protocol was performed. IV CONTRAST: None ORAL CONTRAST: None COMPLICATIONS: None RADIATION DOSE: Total DLP: 652.30 mGy*cm Estimated effective dose: (DLP x 0.015 x size factor) mSv CTDIvol has been reviewed. It is below the limits set by the Radiation Protocol Committee (RPC). Dose modulation, iterative reconstruction, and/or weight based adjustment of the mA/kV was utilized to reduce the radiation dose to as low as reasonably achievable. FINDINGS: LINES and TUBES: None. LOWER THORAX: HEPATOBILIARY: No focal hepatic lesions. No biliary ductal dilation. GALLBLADDER: No radio-opaque stones or sludge. No wall thickening. SPLEEN: No splenomegaly. PANCREAS: No focal masses or ductal dilatation. ADRENALS: No adrenal nodules KIDNEYS/URETERS: No hydronephrosis. No cystic or solid mass lesions. No stones. GI TRACT: There is mild thickening of the posterior gastric wall (series 2 image 14). No abnormal distention, wall thickening of the small and large bowel, or evidence of bowel obstruction. The appendix is not identified in isolation, however, there are no secondary signs of appendicitis. PELVIC ORGANS/BLADDER: Unremarkable. LYMPH NODES: No lymphadenopathy. VESSELS: Unremarkable. PERITONEUM / RETROPERITONEUM: No free air or fluid. BONES: Unremarkable. SOFT TISSUES: Unremarkable. IMPRESSION: Mild thickening of the posterior gastric wall (series 2 image 14) which may be due to underdistention or mild gastritis. Signed by: Radha Sofia MD on 02/28/2020 6:03 PM
[2020-02-28] MEDS ORDERED: HYDROCODONE/APAP 5MG-325MG TAB ONE (18:22)
[2020-02-28] MEDS ORDERED: TYLENOL WITH C1 EACH PO (18:31)
--- NOTE | 2020-02-28 18:41 | Emergency Department Note ---
History of Present Illnes History of Present Illness Chief Complaint: Abdominal Complaints who presents with bilateral lower quadrent abd pain 3 days. Similar sx in past and dx with "infalmmation of bowel" and treated with antibiotic. States has had some stomach acid reflux, but no giulia vomiting. + nausea. No diarrhea. History of Present Illness This is a 34 year old female . Historian: Patient Arrival Mode: Car Rib Bender Required: No Onset (how long ago): day(s) (3) Location: biliateral lower quadrants Quality: sharp Radiation: Reports non-radiation Severity: moderate Onset quality: gradual Duration (how long): day(s) (3) Progression: worsening Context: Denies recent travel, Denies trauma/injury Relieving factors: none Exacerbating factors: none Past Medical/Family History Physician Review I have reviewed the patient's past medical and family history. Any updates have been documented here. Past Medical History Recent Fever: No Clinical Suspicion of Infectio: No New/Unexplained Change in Ment: No Past Medical History: UTI's Other Medical History: "colitis", sickle cell anemia, osteomyelitis. Past Surgical History: Other Surgery: Osteomyelitis Social History Physically hurt or threatened: No Other Last Tetanus: UTD Review of Systems Review of Systems Constitutional: Denies chills, Denies fever Cardiovascular: Denies chest pain, Denies palpitations, Denies syncope Gastrointestinal: Reports as per HPI, Reports abdominal pain, Reports other (no hematazhezia, occasional dark stool); Denies constipation, Denies diarrhea, Denies nausea, Denies vomiting Genitourinary: Reports no symptoms Integumentary: Denies rash Neurological: Denies headache, Denies numbness, Denies paresthesia Hematological/Lymphatic: Denies easy bleeding, Denies easy bruising Review of other systems: All other systems negative Physical Exam Related Data Allergies: Coded Allergies: Penicillins (Verified Allergy, Severe, 12/30/19) ondansetron (Verified Allergy, Severe, 12/30/19) phenazopyridine (Verified Allergy, Severe, 12/30/19) NSAIDS (Non-Steroidal Anti-Inflamma (Verified Allergy, Intermediate, 12/30/19) tramadol (Verified Allergy, Intermediate, 12/30/19) Triage Vital Signs Vital Signs Date Time Temp Pulse Resp B/P (MAP) Pulse Ox O2 Delivery O2 Flow Rate FiO2 02/28/20 15:42 98.8 90 20 112/82 100 Room Air Physical Exam CONSTITUTIONAL Constitutional: Present well-developed, Present well-nourished HENT HENT: Present normocephalic, Present atraumatic HENT L/R: Present left ext ear normal, Present right ext ear normal EYES Eyes: Reports conjunctivae normal NECK Neck: Present ROM normal, Present supple PULMONARY Pulmonary: Present effort normal, Present breath sounds normal; Absent respiratory distress CARDIOVASCULAR Cardiovascular: Present regular rhythm, Present heart sounds normal, Present intact distal pulses, Present capillary refill normal, Present normal rate GASTROINTESTINAL Abdominal: Present soft, Present tender (bilateral lower quadrent's. Neg johnson's, neg psoas, neg illiac. No rebound.) GENITOURINARY SKIN Skin: Present warm, Present rash MUSCULOSKELETAL NEUROLOGICAL Neurological: Present alert, Present no gross motor or sensory deficits PSYCHOLOGICAL Psychological: Present mood/affect normal Results Laboratory Laboratory comments CMP WNL, WBC 4.8, HGB 12.7, HCT 38.4, PLT 336, HCG neg, UA negative for omaira, nit, blood, glu, bili, ketones, and protein, guiac neg. Imaging Imaging Comments Procedure: [id number] CT/CT ABDOMEN/PELVIS WO Exam Date: 02/28/20 Exam Time: 1700 REPORT STATUS: Signed EXAM: CT Abdomen and Pelvis WITHOUT contrast INDICATION: Diffuse abdominal pain. COMPARISON: CT abdomen/pelvis on 12/01/2019. TECHNIQUE: Abdomen and pelvis were scanned utilizing a multidetector helical scanner from the lung base to the pubic symphysis without administration of IV contrast. Absence of intravenous contrast decreases sensitivity for detection of focal lesions and vascular pathology. Coronal and sagittal reformations were obtained. Routine protocol was performed. IV CONTRAST: None ORAL CONTRAST: None COMPLICATIONS: None RADIATION DOSE: Total DLP: 652.30 mGy*cm Estimated effective dose: (DLP x 0.015 x size factor) mSv CTDIvol has been reviewed. It is below the limits set by the Radiation Protocol Committee (RPC). Dose modulation, iterative reconstruction, and/or weight based adjustment of the mA/kV was utilized to reduce the radiation dose to as low as reasonably achievable. FINDINGS: LINES and TUBES: None. LOWER THORAX: HEPATOBILIARY: No focal hepatic lesions. No biliary ductal dilation. GALLBLADDER: No radio-opaque stones or sludge. No wall thickening. SPLEEN: No splenomegaly. PANCREAS: No focal masses or ductal dilatation. ADRENALS: No adrenal nodules KIDNEYS/URETERS: No hydronephrosis. No cystic or solid mass lesions. No stones. GI TRACT: There is mild thickening of the posterior gastric wall (series 2 image 14). No abnormal distention, wall thickening of the small and large bowel, or evidence of bowel obstruction. The appendix is not identified in isolation, however, there are no secondary signs of appendicitis. PELVIC ORGANS/BLADDER: Unremarkable. LYMPH NODES: No lymphadenopathy. VESSELS: Unremarkable. PERITONEUM / RETROPERITONEUM: No free air or fluid. BONES: Unremarkable. SOFT TISSUES: Unremarkable. IMPRESSION: Mild thickening of the posterior gastric wall (series 2 image 14) which may be due to underdistention or mild gastritis. Signed by: Radha Sofia MD on 02/28/2020 6:03 PM Assessment & Plan Medical Decision Making MDM appendicitis, diverticulitis, UTI, kidney stone, bowel obstruction Reassessment Reassessment 184: pain improved with PO hydrocodone. Tolerated PO fluid and crackers. Assessment & Plan Final Impression: (1) GENERALIZED ABDOMINAL PAIN (2) Gastritis Assessment & Plan Patient with recurrent abd pain. States needs new PCP. Will give PCP list. Has GI appt at end of Mar. Will give GI Dr. Márquez's number for sooner appt. Gave strict return precautions. Checked [employer] aware. Last APAP #3 as 01/18/20 and given #18. Has received multiple rx's for APAP#3. Will d/c with APAP #3 limited to #10 pills. hand Rx written due to printer issue. However Rx documented in chart. Depart Disposition: HOME, SELF-CARE Last Vital Signs Date Time Temp Pulse Resp B/P (MAP) Pulse Ox O2 Delivery O2 Flow Rate FiO2 02/28/20 15:42 98.8 90 20 112/82 100 Room Air Home Meds Active Scripts Acetaminophen With Codeine (TYLENOL WITH CODEINE #3 TABLET) 1 Each Tablet, 300 MG PO Q6H PRN for ABDOMINAL PAIN, #10 TAB Prov:LOLY HILARIO MD 02/28/20 Acetaminophen With Codeine (TYLENOL WITH CODEINE #3 TABLET) 1 Each Tablet, 300 MG PO QID PRN for pain for 3 Days, #12 TAB Prov:ED WAGNER MD 12/01/19 Promethazine Hcl (PHENADOZ) 25 Mg Supp.rect, 25 MG RC TID PRN for nausea, vomiting for 5 Days, #15 Prov:ED WAGNER MD 12/01/19 Sulfamethoxazole/Trimethoprim (BACTRIM DS TABLET) 1 Each Tablet, 1 EACH PO BID for 7 Days, #14 Prov:ED WAGNER MD 12/01/19 Medications in the ED Diatrizoate Meglum/ Diatrizoate Sod 30 ml STK-MED ONCE PO ; Start 02/28/20 at 14:52; Stop 02/28/20 at 14:46; Status DC Acetaminophen/ Hydrocodone Bitart 1 ea ONCE ONCE PO Last administered on 02/28/20at 15:55; Admin Dose 1 EA; Start 02/28/20 at 15:30; Stop 02/28/20 at 16:30; Status DC LOLY HILARIO MD Feb 28, 2020 17:47
[2020-02-28 18:48] VITALS: BP 115/74
== END 2020-02-28 18:47 | disposition home or self-care (01) ==
LOC: FSED 14:46
DX: R10.84 Generalized abdominal pain (principal); K29.70 Gastritis, unspecified, without bleeding; R11.2 Nausea with vomiting, unspecified
CPT/HCPCS: 74176; 80053; 81003; 82270; 85025; 99284

== ENCOUNTER 2020-04-07 23:50 | Emergency (ER) | payer SELFPAY ==
[~2020-04-07] VITALS: Ht 165.1 cm; Wt 68.0 kg
[2020-04-08] MEDS ORDERED: MORPHINE SULFATE INJ 4 MG/ML INJ 1ML IM STA (00:42)
[2020-04-08] MEDS ORDERED: PROMETHAZINE HCL (IM) 25 MG/ML VIAL IM ONE ×2 (00:45→00:53)
--- OUTSIDE RECORDS SUMMARY | 2020-04-08 00:57 | XMS REPORT | Clinical Summary ---
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 [facility] [id number] [place], [place] [employer] [id number] [facility] SELF-PAY SELF-PAY xxxxxx 2017-2 [address] [place] [address] Advance Directives Date Inactivated Comments Code Status Date Activated 07/02/2018 4:23 PM Full Code 06/17/2018 5:49 PM 05/05/2018 4:24 PM Full Code 04/29/2018 5:42 PM 10/20/2017 4:52 PM Full Code 10/15/2017 4:04 PM 11/01/2015 9:27 PM Full Code 10/26/2015 4:55 AM 03/29/2015 6:22 PM Full Code 03/28/2015 3:16 AM
--- OUTSIDE RECORDS SUMMARY | 2020-04-08 00:57 | XMS REPORT | Clinical Summary ---
Author Author [facility] Organization [facility] Address Unknown Phone Unavailable Care Team Providers Care Quill Reamer Name Role Phone Philip Mcclain MD PCP Allergies Comments Active Allergy Reactions Severity Noted Date Nsaids (Non-Steroidal Anaphylaxis High 05/07/20 16 Anti-Inflammatory Drug) Penicillins Anaphylaxis High 04/09/2016 Phenazopyridine Anaphylaxis High Tongue swelling Risperidone Other (See 05/25/2019 Comments) Tomato Rash Low 04/28/2019 Ketorolac 12/17/2016 Tramadol Rash Low 12/07/2017 Ondansetron Hcl Rash Low 04/06/2019 Medications End Date Status Medication Sig Dispensed Refills Start Date Active metroNIDAZOLE (FLAGYL) Take by mouth 0 250 MG tablet 3 (three) times a day. Unknown dose. Active dicyclomine (BENTYL) 20 Take by mouth 0 mg tablet 4 (four) times a day. Unknown dose. 04/30/2019 Discontinued (Stop Taking at Discharge) ARIPiprazole [...] (two) times a day for 7 days. 02/11/2020 tamsulosin (FLOMAX) 0.4 Take 1 30 capsule 0 mg capsule capsule (0.4 0 mg total) by mouth daily for 30 days. 01/19/2020 promethazine (PHENERGAN) Take 1 tablet 20 tablet 0 25 MG tablet (25 mg total) 0 by mouth every 6 (six) hours as needed for nausea or vomiting for up to 7 days. 03/30/2020 Discontinued ciprofloxacin (CIPRO) 500 Take by mouth 0 MG tablet 2 (two) times a day. Unknown dose. 04/04/2020 dicyclomine (BENTYL) 20 Take 1 tablet 10 tablet 0 mg tablet (20 mg total) 0 by mouth 2 (two) times a day for 5 days. 04/04/2020 metoclopramide (REGLAN) Take 1 tablet 20 tablet 0 10 MG tablet (10 mg total) 0 by mouth every 6 (six) hours for 5 days. 04/04/2020 famotidine (PEPCID) 20 MG Take 1 tablet 10 tablet 0 tablet (20 mg total) 0 by mouth 2 (two) times a day for 5 days. 04/04/2020 sucralfate (Carafate) 100 Take 10 mL (1 200 mL 0 mg/mL suspension g total) by 0 mouth 4 (four) times a day for 5 days. 04/06/2020 nitrofurantoin, Take 1 14 capsule 0 macrocrystal-monohydrate, [...] Encounters Care Team Description Date Type Specialty Corbin Leung MD Chronic Abdominal pain of unknown etiolo gy (Primary Dx); Vomiting and diarrhea; Urinary tract infection without hematuria, site unspecified 03/30/2020 Emergency Emergency Medicine Derian Sapp MD Abdominal pain, unspecified abdominal lo cation (Primary Dx) 03/27/2020 Emergency Emergency Medicine 03/27/2020 Travel Mart Renae MD Urinary retention (Primary Dx); Nausea and vomiting, intractability of vomiting not specified, unspecified vomiting type; Generalized abdominal pain 01/12/2020 Emergency Emergency Medicine 01/12/2020 Travel Doni Martinez MD Lower abdominal pain (Primary Dx); Urinary tract infection without hematuria, site unspecified; Cocaine abuse (HCC) 09/09/2019 Emergency Emergency Medicine Denilson Connell DO Kandala, Ranganath, MD Right arm cellulitis (Primary Dx) 08/07/2019 [facility] Internal In dicine - Encounter 08/09/2019 [facility] MD [...] 04/27/2019 Emergency Emergency Medicine 04/27/2019 Intake Access after 04/08/2019 Immunizations Name Administration Dates Next Due Rho [...] Travel Start No recent travel history available. Date Recorded COVID-19 Exposure Response 03/27/2020 10:29 PM CDT In the last month, have you been in contact with No / Unsure someone who was confirmed or suspected to have Coronavirus / COVID-19? Last Filed Vital Signs Reading Time Taken Comments Vital Sign 110/81 03/30/2020 12:30 PM CDT Blood Pressure 82 03/30/2020 12:30 PM CDT Pulse 37 C (98.6 F) 03/30/2020 9:29 AM CDT Temperature 16 03/30/2020 12:30 PM CDT Respiratory Rate 100% 03/30/2020 12:30 PM CDT Oxygen Saturation - - Inhaled Oxygen Concentration 68 kg (150 lb) 03/30/2020 9:29 AM CDT Weight 165.1 cm (5' 5") 03/30/2020 9:29 AM CDT Height 24.96 03/30/2020 9:29 AM CDT Body Mass Index Plan of Treatment Health Maintenance Due Date Last Done Comments CERVICAL CANCER SCREENING 12/20/2004 INFLUENZA VACCINE 05/04/2020 Procedures Comments Procedure Name Priority Date/Time Associated Diag nosis URINE CULTURE STAT 03/30/2020 12:43 PM CDT HCG QUALITATIVE, URINE Routine 03/30/2020 SCREEN 12:18 PM CDT URINALYSIS SCREEN AND STAT 03/30/2020 MICROSCOPY, WITH REFLEX 12:[address] ABDOMEN PELVIS W STAT 03/30/2020 CONTRAST 11:57 AM CDT XR ABDOMEN ACUTE INC STAT 03/30/2020 CHEST 1V 10:58 AM CDT CREATINE KINASE, TOTAL STAT 03/30/2020 (CPK) 10:10 AM CDT ESTIMATED GFR STAT 03/30/2020 10:10 AM CDT HCG QUALITATIVE, SERUM STAT 03/30/2020 SCREEN 10:10 AM CDT B NATRIURETIC PEPTIDE STAT 03/30/2020 10:10 AM CDT TROPONIN STAT 03/30/2020 10:10 AM CDT LIPASE LEVEL STAT 03/30/2020 10:10 AM CDT COMPREHENSIVE METABOLIC STAT 03/30/2020 PANEL 10:10 AM CDT PROTHROMBIN TIME WITH INR STAT 03/30/2020 10:10 AM CDT HC COMPLETE BLD COUNT STAT 03/30/2020 W/AUTO DIFF 10:10 AM CDT ECG ED PRELIMINARY Routine 03/30/2020 INTERPRETATION 9:48 AM CDT ECG 12-LEAD STAT 03/30/2020 9:37 AM CDT URINE CULTURE STAT 01/12/2020 10:30 PM CDT URINALYSIS SCREEN AND STAT 01/12/2020 MICROSCOPY, WITH REFLEX 10:[address] ABDOMEN PELVIS WO STAT 01/12/2020 CONTRAST 9:45 PM CDT OCCULT BLOOD, STOOL Routine 01/12/2020 9:13 PM CDT US PELVIC TRANSVAGINAL STAT 01/12/2020 9:04 PM CDT US PELVIC TRANSABDOMINAL STAT 01/12/2020 9:04 PM CDT ESTIMATED GFR STAT 01/12/2020 5:50 PM CDT COMPREHENSIVE METABOLIC STAT 01/12/2020 PANEL 5:50 PM CDT HCG QUALITATIVE, SERUM STAT 01/12/2020 SCREEN 5:49 PM CDT LIPASE LEVEL STAT 01/12/2020 5:49 PM CDT HC COMPLETE BLD COUNT STAT 01/12/2020 W/AUTO DIFF 5:49 PM CDT US PELVIC TRANSABDOMINAL STAT 09/09/2019 7:35 PM BARREL LOADER URINE CULTURE STAT 09/09/2019 5:54 PM BARREL LOADER ESTIMATED GFR STAT 09/09/2019 4:55 PM BARREL LOADER URINE DRUGS OF ABUSE STAT 09/09/2019 SCREEN 4:55 PM BARREL LOADER HCG QUALITATIVE, SERUM STAT 09/09/2019 SCREEN 4:55 PM BARREL LOADER URINALYSIS SCREEN AND STAT 09/09/2019 MICROSCOPY, WITH REFLEX 4:55 PM BARREL LOADER TO CULTURE LIPASE LEVEL STAT 09/09/2019 4:55 PM BARREL LOADER COMPREHENSIVE METABOLIC STAT 09/09/2019 PANEL 4:55 PM BARREL LOADER HC COMPLETE BLD COUNT STAT 09/09/2019 W/AUTO DIFF 4:55 PM BARREL LOADER ESTIMATED GFR Routine 08/09/2019 4:45 AM BARREL LOADER BASIC METABOLIC PANEL Routine 08/09/2019 4:45 AM BARREL LOADER URINE DRUGS OF ABUSE Routine 08/08/2019 SCREEN 2:15 PM BARREL LOADER ESTIMATED GFR Routine 08/08/2019 5:06 AM BARREL LOADER HC COMPLETE BLD COUNT Routine 08/08/2019 W/AUTO DIFF 5:06 AM BARREL LOADER BASIC METABOLIC PANEL Routine 08/08/2019 5:06 AM BARREL LOADER LACTIC ACID LEVEL, SEPSIS Timed 08/08/2019 - NOW AND REPEAT 2X EVERY 2:35 AM BARREL LOADER 3 HOURS LACTIC ACID LEVEL, SEPSIS Timed 08/07/2019 - NOW AND REPEAT 2X EVERY 11:48 PM BARREL LOADER 3 HOURS ESTIMATED GFR STAT 08/07/2019 9:25 PM BARREL LOADER HCG QUALITATIVE, SERUM STAT 08/07/2019 SCREEN 9:25 PM BARREL LOADER LACTIC ACID LEVEL, SEPSIS STAT 08/07/2019 - NOW AND REPEAT 2X EVERY 9:25 PM BARREL LOADER 3 HOURS HC COMPLETE BLD COUNT STAT 08/07/2019 W/AUTO DIFF 9:25 PM BARREL LOADER COMPREHENSIVE METABOLIC STAT 08/07/2019 PANEL 9:25 PM BARREL LOADER BLOOD CULTURE, AEROBIC & Routine 08/07/2019 ANAEROBIC 9:25 PM BARREL LO[employer]ER BLOOD CULTURE, AEROBIC & Routine 08/07/2019 ANAEROBIC 9:20 PM BARREL LOADER US PELVIC TRANSVAGINAL STAT 06/21/2019 12:11 AM BARREL LOADER US PELVIC TRANSABDOMINAL STAT 06/21/2019 12:[address] ABDOMEN PELVIS W STAT 06/20/2019 CONTRAST 11:14 PM BARREL LOADER GRAM STAIN STAT 06/20/2019 9:23 PM BARREL LOADER URINE CULTURE STAT 06/20/2019 9:23 PM BARREL LOADER ESTIMATED GFR STAT 06/20/2019 8:58 PM BARREL LOADER LIPASE LEVEL STAT 06/20/2019 8:58 PM BARREL LOADER COMPREHENSIVE METABOLIC STAT 06/20/2019 PANEL 8:58 PM BARREL LOADER HC COMPLETE BLD COUNT STAT 06/20/2019 W/AUTO DIFF 8:58 PM BARREL LOADER HCG QUALITATIVE, URINE STAT 06/20/2019 SCREEN 8:54 PM BARREL LOADER URINALYSIS SCREEN AND STAT 06/20/2019 MICROSCOPY, WITH REFLEX 8:54 PM BARREL LOADER TO CULTURE ESTIMATED GFR STAT 06/08/2019 7:25 AM BARREL LOADER COMPREHENSIVE METABOLIC STAT 06/08/2019 PANEL 7:25 AM BARREL LOADER HC COMPLETE BLD COUNT STAT 06/08/2019 W/AUTO DIFF 7:25 AM BARREL LOADER T4, FREE STAT 06/08/2019 7:02 AM BARREL LOADER THYROID STIMULATING STAT 06/08/2019 HORMONE 7:02 AM BARREL LOADER HCG QUALITATIVE, SERUM STAT 06/08/2019 SCREEN 7:02 AM BARREL LOADER URINE DRUGS OF ABUSE STAT 06/08/2019 SCREEN 7:02 AM BARREL LOADER ESTIMATED GFR STAT 05/27/2019 2:45 PM CDT [...] ECG 12-LEAD STAT 04/27/2019 2:51 PM CDT after 04/08/2019 Results * Urine culture (03/30/2020 12:43 PM CDT) Only the most recent of 6 results within the time period is included. Urine culture Mixed vane 10-4 col/cc [place] isolate Mixed vane 10-4 col/cc [facility] Comment: HOSPITAL Specimen Information Specimen Source: Urine Specimen Site: Clean catch Specimen Urine Performing Organization Address City/[facility] [place] Ph one Number [facility] DEPARTMENT OF [address] [place] [address] PATHOLOGY AND GENOMIC MEDICINE [address] * Urinalysis screen and microscopy, with reflex to culture (03/30/2020 12:18 PM CDT) Only the most recent of 6 results within the time period is included. Specimen site Clean catch [facility] Color, UA Yellow [facility] Appearance, UA Cloudy [facility] Specific 1.025 1.001 - 1.030 [place] gravity, UA [facility] pH, UA 7.0 5.0 - 9.0 [facility] Protein, UA Negative Negative [facility] Glucose, UA Negative Negative [facility] Ketones, UA Negative Negative [facility] Bilirubin, UA Negative Negative [facility] Blood, UA Negative Negative [facility] Nitrite, UA Negative Negative [facility] Urobilinogen, <2.0 <2.0 E.U./dL [facility] Leukocyte Negative Negative [place] esterase, UA [facility] Epithelial >20 /HPF [place] cells, UA [facility] Round <1 0 - 5 /HPF [place] epithelial [facility] cells, [facility] WBC, UA 8 (H) 0 - 4 /HPF [facility] RBC, UA 1 0 - 5 /HPF [facility] Bacteria, UA Few None seen [facility] Yeast, UA None seen [facility] Yeast with None seen [place] pseudohy[facility] ALICE Specimen Urine Performing Organization Address City/[facility] Ph one Number [facility] DEPARTMENT OF [address] [place] [phone] PATHOLOGY AND GENOMIC MEDICINE [address] * hCG qualitative, urine screen (03/30/2020 12:18 PM CDT) Only the most recent of 2 results within the time period is included. hCG NegativeComment: Sensitivity [place] qualitative, of HCG test: 25 mIU/ml [facility] Specimen Urine Performing Organization Address City/[facility] Ph one Number [facility] DEPARTMENT OF [address] [place] [phone] PATHOLOGY AND GENOMIC MEDICINE [address] * CT Abdomen Pelvis W Contrast (03/30/2020 11:57 AM CDT) Only the most recent of 2 results within the time period is included. Specimen Narrative Performed At EXAMINATION: CT ABDOMEN PELVIS W CONTRAST GEORGIE MOSHER CLINICAL HISTORY: 34 years old Female. Chronic abdominal pain, nausea, vomiting, diarrhea. TECHNIQUE: Multiple axial images of the abdomen and pelvis were obtained following intravenous administration of iodinated contrast. Oral contrast was not administered. Sagittal and coronal computerized reformatted images were also obtained. CT imaging was performed with iterative reconstruc tion techniques and/or automated exposure control to reduce radiation dose. COMPARISON: CT abdomen pelvis 01/12/20 20, 06/20/2019 IMPRESSION: LOWER CHEST: Visualized lower thorax: Lung bases: No significant pleural effu yvette. Lower mediastinum: Cardiac size is norm al. No pericardial effusion. ABDOMEN: Upper abdominal organs: Liver: Enhances normally without focal lesions. Smooth contour. Measures 18.7 cm in craniocaudal dimension. Gallbladder: Nondistended, normal. Spleen: Normal. Pancreas: Normal. Adrenal Glands: Normal. Kidneys: Normal. No hydronephrosis. No obstructing renal or ureteral calculi. Bowel and mesentery: Large and small syeda wel are normal in caliber without focal wall thickening or mesenteric fat stran ding. Normal appendix. The bowel is otherwise normal.No free intraperitonea l gas or fluid. Vasculature: Abdominal aorta is of norm al caliber. Celiac artery, superior and inferior mesenteric arteries, superior mesenteric and portal veins appear patent. Lymph nodes: No abdominal or retroperit rothman lymphadenopathy. PELVIS: Urinary bladder: Mildly fluid distended . Uterus appears normal. No adnexal regio n masses. Lymph nodes: No pelvic lymphadenopathy. MUSCULOSKELETAL: No suspicious lytic or blastic osseous lesions. The superficial soft tissues are unremarkable. Age appropriate degenerat karla changes of the spine. SUMMARY: 1. Mildly fluid distended urinary bladd er, otherwise, no CT evidence of acute intra-abdominal pathology. Specifically , no appendicitis, diverticulitis, bowel obstruction, perforation, ascites, flui d collection or hydronephrosis. [facility]-[id number] Procedure Note Interface, Radiology Results Incoming - 03/30/2020 12:08 PM CDT EXAMINATION: CT ABDOMEN PELVIS W CONTRAST CLINICAL HISTORY: 34 years old Female. Chronic abdominal pain, nausea, vomiting, diarrhea. TECHNIQUE: Multiple axial images of the abdomen and pelvis were obtained following intravenous administration of iodinated contrast. Oral contrast was not administered. Sagittal and coronal computerized reformatted images were also obtained. CT imaging was performed with iterative reconstruction techniques and/or automated exposure control to reduce radiation dose. COMPARISON: CT abdomen pelvis 01/12/2020, 06/20/2019 IMPRESSION: LOWER CHEST: Visualized lower thorax: Lung bases: No significant pleural effusion. Lower mediastinum: Cardiac size is normal. No pericardial effusion. ABDOMEN: Upper abdominal organs: Liver: Enhances normally without focal lesions. Smooth contour. Measures 18.7 cm in craniocaudal dimension. Gallbladder: Nondistended, normal. Spleen: Normal. Pancreas: Normal. Adrenal Glands: Normal. Kidneys: Normal. No hydronephrosis. No obstructing renal or ureteral calculi. Bowel and mesentery: Large and small bowel are normal in caliber without focal wall thickening or mesenteric fat stranding. Normal appendix. The bowel is otherwise normal.No free intraperitoneal gas or fluid. Vasculature: Abdominal aorta is of normal caliber. Celiac artery, superior and inferior mesenteric arteries, superior mesenteric and portal veins appear patent. Lymph nodes: No abdominal or retroperitoneal lymphadenopathy. PELVIS: Urinary bladder: Mildly fluid distended. Uterus appears normal. No adnexal region masses. Lymph nodes: No pelvic lymphadenopathy. MUSCULOSKELETAL: No suspicious lytic or blastic osseous lesions. The superficial soft tissues are unremarkable. Age appropriate degenerative changes of the spine. SUMMARY: 1. Mildly fluid distended urinary bladde r, otherwise, no CT evidence of acute intra-abdominal pathology. Specifically, no appendicitis, diverticulitis, bowel obstruction, perforation, ascites, fluid collection or hydronephrosis. [facility]-[id number] Performing Organization Address City/State/[facility] Ph one Number [facility] [id number] [place] [address] * XR Abdomen Acute Inc Chest (03/30/2020 10:58 AM CDT) Specimen Narrative Performed At EXAMINATION: XR ABDOMEN ACUTE INC CHEST 1V [facility] CLINICAL HISTORY: Abd pain unspecif ied TECHNIQUE: Frontal chest and 3 views of the abdomen obtained. COMPARISON: Chest x-ray 05/13/2018 IMPRESSION: Frontal chest shows cardiac silhouette and pulmonary vasculature within normal limits. No lobar consolidation or pleur al effusion identified. Upright view shows no free air the diap hragm and no air-fluid levels. Bowel loops show no evidence of obstruc tion or ileus. Prominent fecal material within the ascending colon may indicate constipation. [id number] Procedure Note Interface, Radiology Results Incoming - 03/30/2020 11:15 AM CDT EXAMINATION: XR ABDOMEN ACUTE INC CHEST 1V CLINICAL HISTORY: Abd pain unspecified TECHNIQUE: Frontal chest and 3 views of the abdomen obtained. COMPARISON: Chest x-ray 05/13/2018 IMPRESSION: Frontal chest shows cardiac silhouette and pulmonary vasculature within normal limits. No lobar consolidation or pleural effusion identified. Upright view shows no free air the diaphragm and no air-fluid levels. Bowel loops show no evidence of obstruction or ileus. Prominent fecal material within the ascending colon may indicate constipation. [id number] Performing Organization Address City/[facility] one Number [facility] [address] [place] [address] * Estimated GFR (03/30/2020 10:10 AM CDT) Only the most recent of 12 results within the time period is included. Estimated GFR >=90 mL/min/1.73 m2 [place] Comment: [facility] Interpretation G1 >=90 Normal or high G2 60-89 Mildly decreased G3a 45-59 Mildly to moderately decreased G3b 30-44 Moderately to severely decreased G4 15-29 Severely decreased G5 <15 Kidney failure The eGFR was calculated using the Chronic Kidney Disease Epidemiology Collaboration (CKD-EPI) equation. Interpretation is based on recommendations of the National Kidney Foundation-Kidney Disease Outcomes Quality Initiative (NKF-KDOQI) published in 2014. Specimen Performing Organization Address [facility] one Number [place] [address] [place], [place] [address] PATHOLOGY AND GENOMIC MEDICINE [facility] [address] [place] [address] [facility] * Troponin (03/30/2020 10:10 AM CDT) Troponin <0.006 0.000 - 0.040 ng/mL [place] Comment: HANNAH GOODEN In patients suspected of [facility] having a myocardial infarction, along with all other appropriate clinical measures and actions including ECG and other diagnostics as appropriate, measure Ultra TnI at 0 hrs and at 3 hrs. Myocardial infarction VERY LIKELY The 0 hr TnI level is > 0.10 ng/mL Myocardial infarction LIKELY The 0 hr TnI level is > 0.04 ng/mL and 3 hr level is increased or decreased by at least 0.020 ng/mL Myocardial infarction VERY UNLIKELY Both the 0 hr and 3 hr TnI levels <= 0.04 ng/mL(within normal limits) OR 0 hr is > 0.04 ng/mL and 3 hr is increased OR decreased by less than 0.020 ng/mL Specimen Blood Performing Organization Address City/[facility] Ph one Number [facility] [place] [id number] [place] [phone] PATHOLOGY AND GENOMIC MEDICINE [address] * Prothrombin time with INR (03/30/2020 10:10 AM CDT) [facility] Prothrombin 13.0 11.5 - 14.5 sec [facility] INR 1.0 [place] Comment: [facility] Normalized [facility] Ratio (INR) is a therapeutic monitoring tool for patients who are stable on oral anticoagulant therapy. An INR of 2.0-3.0 is suggested for deep vein thrombosis/pulmonary embolism. Specimen Blood Performing Organization Address [facility] Ph one [place] [address] [place] [phone] PATHOLOGY AND [facility] MEDICINE [address] * CBC with platelet and differential (03/30/2020 10:10 AM CDT) Only the most recent of 11 results within the time period is included. WBC 4.2 (L) 4.5 - 11.0 k/uL [facility] RBC 3.96 (L) 4.20 - 5.50 m/uL [facility] HGB 12.9 12.0 - 16.0 g/dL [facility] HCT 37.9 37.0 - 47.0 % [facility] MCV 95.7 82.0 - 100.0 fL [facility] MCH 32.6 27.0 - 34.0 pg [facility] MCHC 34.0 31.0 - 37.0 g/dL [facility] RDW - SD 42.2 37.0 - 55.0 fL [facility] MPV 10.7 6.9 - 11.0 fL [facility] Platelet count 263 150 - 400 K/uL [facility] Nucleated RBC 0.00 /100 WBC [facility] Neutrophils 58.1 39.0 - 69.0 % [facility] Lymphocytes 30.8 25.0 - 45.0 % [facility] Monocytes 6.5 0.0 - 10.0 % [facility] Eosinophils 3.4 0.0 - 5.0 % [facility] Basophils 1.0 0.0 - 1.0 % [facility] Immature 0.2 0.0 - 1.0 % [place] granulocytes [facility] Specimen Blood Performing Organization Address City/[facility]/Zipcode Ph one Number [facility] DEPARTMENT OF [address] [place] [phone] PATHOLOGY AND GENOMIC MEDICINE [address] * hCG qualitative, serum screen (03/30/2020 10:10 AM CDT) Only the most recent of 8 results within the time period is included. Pathologist [facility] hCG NegativeComment: Sensitivity [place] qualitative of HCG test: 25 mIU/mL [facility] Specimen Blood Performing Organization Address City/[facility] Ph one Number [facility] DEPARTMENT OF [address] [place] [phone] PATHOLOGY AND GENOMIC MEDICINE [address] * B natriuretic peptide (03/30/2020 10:10 AM CDT) Pathologist [facility] BNP 14 0 - 100 pg/mL [facility] Specimen Blood Performing Organization Address City/[facility]/Zipcode Ph one Number [facility] DEPARTMENT OF [address] [place] [phone] PATHOLOGY AND GENOMIC MEDICINE [address] * Lipase level (03/30/2020 10:10 AM CDT) Only the most recent of 4 results within the time period is included. Pathologist [facility] Lipase 20 13 - 60 U/L [facility] Specimen Blood Performing Organization Address City/[facility] Ph one Number [facility] DEPARTMENT OF [address] [place] [address] PATHOLOGY AND GENOMIC MEDICINE [address] * Creatine kinase, total (CPK) (03/30/2020 10:10 AM CDT) Only the most recent of 3 results within the time period is included. Creatine kinase 68 26 - 192 U/L [facility] Specimen Performing Organization Address [facility] Ph one Number [facility] DEPARTMENT OF [address] [place] [address] PATHOLOGY AND GENOMIC MEDICINE [address] * Comprehensive metabolic panel (03/30/2020 10:10 AM CDT) Only the most recent of 9 results within the time period is included. Sodium 134 (L) 135 - 148 mEq/L [facility] Potassium 3.5 3.5 - 5.0 mEq/L [facility] Chloride 100 98 - 112 mEq/L [facility] [facility] CO2 25 24 - 31 mEq/L [facility] Anion gap 9@ANIO 7 - 15 mEq/L [facility] BUN 6 6 - 20 mg/dL [facility] Creatinine 0.71 0.50 - 0.90 mg/dL [facility] Glucose 77 65 - 99 mg/dL [facility] Calcium 9.5 8.3 - 10.2 mg/dL [facility] Protein 7.9 6.3 - 8.3 g/dL [facility] Albumin 4.5 3.5 - 5.0 g/dL [facility] A/G ratio 1.3 0.7 - 3.8 [facility] Alkaline 51 35 - 104 U/L [place] phosphatase [facility] AST 17 10 - 35 U/L [facility] ALT 9 5 - 50 U/L [facility] Total bilirubin 0.3 0.2 - 1.2 mg/dL [facility] Specimen Blood Performing Organization Address City/State/[facility] Ph one Number [place] [address] [place], [place] [address] PATHOLOGY AND GENOMIC MEDICINE [facility] [address] [place] [address] [facility] * ECG ED Preliminary Interpretation - Not an Order (03/30/2020 9:48 AM CDT) Only the most recent of 3 results within the time period is included. Narrative Performed At Corbin Leung MD 03/30/2020 1 2:48 PM ECG ED Preliminary Interpretation - Not an Order Performed by: Corbin Leung MD Authorized by: Corbin Leung MD ECG reviewed by ED Physician in the abs ence of a digital composer: yes Interpretation: Interpretation: abnormal Rate: ECG rate: 116 ECG rate assessment: tachycardic Rhythm: Rhythm: sinus tachycardia Ectopy: Ectopy: none QRS: QRS axis: Normal QRS intervals: Normal Conduction: Conduction: normal ST segments: ST segments: Non-specific T waves: T waves: non-specific Comments: Sinus tachycardia, nonspecific ST-T changes * ECG 12 lead (03/30/2020 9:37 AM CDT) Only the most recent of 3 results within the time period is included. Ventricular 116 [facility] rate Atrial rate 116 [facility] FL interval 132 [facility] QRSD interval 70 [facility] QT interval 330 [facility] QTC interval 458 [facility] P axis 1 79 [facility] QRS axis 1 64 [facility] T wave axis 39 [facility] EKG impression Sinus tachycardia-Right atrial [facility] MU SE enlargement-In automated comparison with ECG of 27-MAY-2019 14:40,-Vent. rate has increased BY 42 BPM-T wave inversion now evident in Inferior leads- Specimen Narrative Performed At This result has an attachment that is n ot available. Performing Organization Address City/[facility] Ph one Number [facility] MUSE [address] [place] [address] * CT Abdomen Pelvis Wo Contrast (01/12/2020 9:45 PM CDT) Specimen Narrative Performed At CT ABDOMEN PELVIS WO CONTRAST [facility] CLINICAL INDICATION: abd pain TECHNIQUE: Multidetector CT of the ab domen and pelvis was performed without intravenous contrast with multiplanar r econstructions. CT imaging was performed with iterative reconstruction technique and/or automated exposure control to reduce radiation dose. COMPARISON: 06/20/2019 IMPRESSION: Please note, the lack of intravenous an d oral contrast limits evaluation of the abdominal and pelvic viscera. ABDOMEN/PELVIS: LOWER THORAX: Clear. LIVER: Normal. BILIARY: Normal. SPLEEN: Normal. PANCREAS: Normal. ADRENALS: Normal. KIDNEYS: Marked distention of the wei dder is seen, which could represent neurogenic bladder or outlet obstructio n. No hydronephrosis or hydroureter. Kidneys are unremarkable. PERITONEUM: Small fluid is seen in the pelvis. No free intraperitoneal air. VASCULAR: Unremarkable LYMPH NODES: No enlarged lymph nodes in the abdomen or pelvis. GI: Mild colonic diverticulosis is se en without diverticulitis. The appendix is normal. No gastrointestinal tract ob struction. BONES: There are no acute osseous abn ormalities. SOFT TISSUES: Unremarkable. Summary: Marked distention of the bladder is see n, which could be seen with neurogenic bladder or outlet obstruction. No hydro nephrosis or hydroureter. [facility]-[id number] Procedure Note [facility], Radiology Results Incoming - 01/12/2020 9:[address] ABDOMEN PELVIS WO CONTRAST CLINICAL INDICATION: abd pain TECHNIQUE: Multidetector CT of the abdomen and pelvis was performed without intravenous contrast with multiplanar reconstructions. CT imaging was performed with iterative reconstruction technique and/or automated exposure control to reduce radiation dose. COMPARISON: 06/20/2019 IMPRESSION: Please note, the lack of intravenous and oral contrast limits evaluation of the abdominal and pelvic viscera. ABDOMEN/PELVIS: LOWER THORAX: Clear. LIVER: Normal. BILIARY: Normal. SPLEEN: Normal. PANCREAS: Normal. ADRENALS: Normal. KIDNEYS: Marked distention of the bladder is seen, which could represent neurogenic bladder or outlet obstruction. No hydronephrosis or hydroureter. Kidneys are unremarkable. PERITONEUM: Small fluid is seen in the pelvis. No free intraperitoneal air. VASCULAR: Unremarkable LYMPH NODES: No enlarged lymph nodes in the abdomen or pelvis. GI: Mild colonic diverticulosis is seen without diverticulitis. The appendix is normal. No gastrointestinal tract obstruction. BONES: There are no acute osseous abnormalities. SOFT TISSUES: Unremarkable. Summary: Marked distention of the bladder is seen, which could be seen with neurogenic bladder or outlet obstruction. No hydronephrosis or hydroureter. [facility]-[id number] Performing Organization Address City/[facility] Ph one Number [facility] [address] [place] [address] * Occult blood, stool (01/12/2020 9:13 PM CDT) Occult blood, Negative for occult blood. [place] stool Comment: [facility] Specimen Information [facility] Specimen Source: Stool Specimen Site: Nonpreserved Specimen Stool - Nonpreserved Performing Organization Address City/[facility] one Number [facility] [place] [place] [address] [place] [address] PATHOLOGY AND GENOMIC MEDICINE [facility] [address] [place], [place] [address] HOSPITAL * US Pelvic Transvaginal (01/12/2020 9:04 PM CDT) Only the most recent of 2 results within the time period is included. Specimen Narrative Performed At EXAMINATION: US PELVIC TRANSABDOMINAL, US PELVIC TR ANSVAGINAL [facility] CLINICAL HISTORY: lower abd pain COMPARISON: None. TECHNIQUE: Transabdominal and endovagin al sonographic images of the pelvis were obtained. Grayscale, color Doppler, and spectral waveform analysis of the ovarian vessels was performed. FINDINGS: Suboptimal evaluation due to patient co ndition and overlying bowel gas. Patient unable to void urinary bladder. The uterus is anteverted, measures 10.2 x 4.6 x 5.6 cm. No uterine masses. Cervix is normal. Endometrium is normal ; endometrial stripe measures 0.71 cm. The right ovary measures 3.2 x 2.8 x 2. 1 cm. Normal Doppler flow was present. The left ovary is not visualized. No adnexal masses. No visualized free pelvic fluid. IMPRESSION: Suboptimal evaluation. Nonvisualization of left ovary. Otherwise unremarkable transabdominal and endovaginal pelvic u ltrasound examination. [facility]-[id number] Procedure Note Hm Interface, Radiology Results Incoming - 01/12/2020 9:10 PM CDT EXAMINATION: US PELVIC TRANSABDOMINAL, US PELVIC TRANSVAGINAL CLINICAL HISTORY: lower abd pain COMPARISON: None. TECHNIQUE: Transabdominal and endovaginal sonographic images of the pelvis were obtained. Grayscale, color Doppler, and spectral waveform analysis of the ovarian vessels was performed. FINDINGS: Suboptimal evaluation due to patient condition and overlying bowel gas. Patient unable to void urinary bladder. The uterus is anteverted, measures 10.2 x 4.6 x 5.6 cm. No uterine masses. Cervix is normal. Endometrium is normal; endometrial stripe measures 0.71 cm. The right ovary measures 3.2 x 2.8 x 2.1 cm. Normal Doppler flow was present. The left ovary is not visualized. No adnexal masses. No visualized free pelvic fluid. IMPRESSION: Suboptimal evaluation. Nonvisualization of left ovary. Otherwise unremarkable transabdominal and endovaginal pelvic ultrasound examination. [id number] Performing Organization Address City/State/Zipcode Ph one Number [facility] [address] [place] [address] * US Pelvic Transabdominal (01/12/2020 9:04 PM CDT) Only the most recent of 3 results within the time period is included. Specimen Narrative Performed At EXAMINATION: US PELVIC TRANSABDOMINAL, US PELVIC TR ANSVAGINAL [facility] CLINICAL HISTORY: lower abd pain COMPARISON: None. TECHNIQUE: Transabdominal and endovagin al sonographic images of the pelvis were obtained. Grayscale, color Doppler, and spectral waveform analysis of the ovarian vessels was performed. FINDINGS: Suboptimal evaluation due to patient co ndition and overlying bowel gas. Patient unable to void urinary bladder. The uterus is anteverted, measures 10.2 x 4.6 x 5.6 cm. No uterine masses. Cervix is normal. Endometrium is normal ; endometrial stripe measures 0.71 cm. The right ovary measures 3.2 x 2.8 x 2. 1 cm. Normal Doppler flow was present. The left ovary is not visualized. No adnexal masses. No visualized free pelvic fluid. IMPRESSION: Suboptimal evaluation. Nonvisualization of left ovary. Otherwise unremarkable transabdominal and endovaginal pelvic u ltrasound examination. [facility]-[id number] Procedure Note Interface, Radiology Results Incoming - 01/12/2020 9:10 PM CDT EXAMINATION: US PELVIC TRANSABDOMINAL, US PELVIC TRANSVAGINAL CLINICAL HISTORY: lower abd pain COMPARISON: None. TECHNIQUE: Transabdominal and endovaginal sonographic images of the pelvis were obtained. Grayscale, color Doppler, and spectral waveform analysis of the ovarian vessels was performed. FINDINGS: Suboptimal evaluation due to patient condition and overlying bowel gas. Patient unable to void urinary bladder. The uterus is anteverted, measures 10.2 x 4.6 x 5.6 cm. No uterine masses. Cervix is normal. Endometrium is normal; endometrial stripe measures 0.71 cm. The right ovary measures 3.2 x 2.8 x 2.1 cm. Normal Doppler flow was present. The left ovary is not visualized. No adnexal masses. No visualized free pelvic fluid. IMPRESSION: Suboptimal evaluation. Nonvisualization of left ovary. Otherwise unremarkable transabdominal and endovaginal pelvic ultrasound examination. [facility]-[id number] Performing Organization Address [facility] one Number [facility] [address] [place] [address] * Urine drugs of abuse screen (09/09/2019 4:55 PM BARREL LOADER) Only the most recent of 5 results within the time period is included. Amphetamine Positive (A) [place] screen, urine [facility] Barbiturate Negative [place] screen, urine [facility] Benzodiazepine Negative [place] screen, urine [facility] Cocaine screen, Positive (A) [place] urine [facility] Methadone Negative [place] metabolite [facility] SUGAR (EDDP), urine [facility] Opiates screen, Negative [place] urine [facility] Phencyclidine Negative [place] screen, urine [facility] Tricyclic Negative [place] screen, urine [facility] Cannabinoid Negative [place] screen, urine Comment: [facility] SUGAR Drug screen minimum [facility] concentration of detectability Amphetamines 1000 ng/mL Barbiturates [...] is required. Specimen Urine Performing Organization Address [facility] one [place] [address] [place], [place] [address] PATHOLOGY AND GENOMIC MEDICINE [facility] [address] [place] [address] [facility] * Basic metabolic panel (08/09/2019 4:45 AM BARREL LOADER) Only the most recent of 3 results within the time period is included. Sodium 137 135 - 148 mEq/L [facility] Potassium 4.1 3.5 - 5.0 mEq/L [facility] Chloride 109 98 - 112 mEq/L [facility] CO2 20 (L) 24 - 31 mEq/L [facility] Anion gap 8@ANIO 7 - 15 mEq/L [facility] BUN 10 6 - 20 mg/dL [facility] Creatinine 0.67 0.50 - 0.90 mg/dL [facility] Glucose 94 65 - 99 mg/dL [facility] Calcium 8.3 8.3 - 10.2 mg/dL [facility] Specimen Plasma specimen Performing Organization Address City/[facility] Ph one Number [facility] DEPARTMENT OF [address] [place] [address] PATHOLOGY AND GENOMIC MEDICINE [address] * Lactic acid level, SEPSIS - Now and repeat 2x every 3 hours (08/08/2019 2:35 AM BARREL LOADER) Only the most recent of 3 results within the time period is included. Lactic acid 0.7 0.5 - 2.2 mmol/L [facility] Specimen Plasma specimen Performing Organization Address City/[facility] Ph one Number [facility] DEPARTMENT OF [address] [place] [address] PATHOLOGY AND GENOMIC MEDICINE [address] * Blood culture, aerobic & anaerobic (08/07/2019 9:25 PM BARREL LOADER) Only the most recent of 2 results within the time period is included. Blood culture No growth after 5 days of [place] isolate incubation. [facility] Comment: HOSPITAL Specimen Information Specimen Source: Blood Specimen Site: Antecubital, left Specimen Blood - Antecubital, left Performing Organization Address City/[facility] Ph one Number [facility] DEPARTMENT OF [address] [place] [address] PATHOLOGY AND GENOMIC MEDICINE [place] [facility] [address] HOSPITAL * Gram stain (06/20/2019 9:23 PM BARREL LOADER) Gram stain No WBC's [place] result Many Gram variable rods [facility] Comment: HOSPITAL Specimen Information Specimen Source: Urine Specimen Site: Clean catch Specimen Urine Performing Organization Address City/[facility] one Number [facility] DEPARTMENT OF [address] [place] [address] PATHOLOGY AND GENOMIC MEDICINE [facility] [address] [place] [address] * Thyroid stimulating hormone (06/08/2019 7:02 AM BARREL LOADER) Only the most recent of 4 results within the time period is included. TSH 1.26 0.55 - 4.78 uIU/mL [facility] Specimen Serum Performing Organization Address [facility] Ph one Number [facility] DEPARTMENT OF [address] [place] [address] PATHOLOGY AND GENOMIC MEDICINE [address] * T4, free (06/08/2019 7:02 AM BARREL LOADER) Only the most recent of 4 results within the time period is included. Pathologist [facility] T4, free 0.9 0.8 - 1.8 ng/dL [facility] Specimen Serum Performing Organization Address [facility] one Number [facility] DEPARTMENT OF [facility] [address] [facility] [place] [address] PATHOLOGY AND GENOMIC MEDICINE [address] * Alcohol level, blood (05/27/2019 2:45 PM CDT) Only the most recent of 3 results within the time period is included. Pathologist [facility] Alcohol <14.1 mg/dL [place] Comment: [facility] None Detected Legal Intoxication in [place] 80 mg/dL (0.08%) - Whole Blood Toxic Concentration 200 mg/dL (0.2%) Potentially Fatal 350 - 500 mg/dL (0.35 - 0.5%) Alcohol percent 0.014 % [facility] Specimen Plasma specimen Performing Organization Address [facility] one Number [facility] [place] [place] [address] [address] [facility]. [place] [id number] PATHOLOGY AND GENOMIC MEDICINE [address] * Acetaminophen level (05/27/2019 2:45 PM CDT) Only the most recent of 3 results within the time period is included. Pathologist [facility] Acetaminophen <15.9 ug/mL [place] level Comment: [facility] Therapeutic HOSPITAL 10-30 ug/mL Possible Toxicity 150-200 ug/mL Probable Toxicity >200 ug/mL Specimen Serum Performing Organization Address [facility] Ph one Number [facility] [place] [address] [address] [facility]. [place] [id number] PATHOLOGY AND GENOMIC MEDICINE [facility] [id number] [place] [address] * Salicylate level (05/27/2019 2:45 PM CDT) Only the most recent of 3 results within the time period is included. Salicylate <0.4 mg/dL [place] Comment: [facility] Therapeutic Range: HOSPITAL 5 - 30 mg/dL Specimen Serum Performing Organization Address City/[facility] Ph one Number [facility] DEPARTMENT OF [facility] [address] [facility] [place] [address] PATHOLOGY AND GENOMIC MEDICINE [address] * Hemoglobin A1c (04/28/2019 10:55 PM CDT) Hemoglobin A1C 4.6 4.0 - 5.6 % [place] Comment: [facility] HbA1c cutoffs for diagnosing HOSPITAL diabetes: 4.0% - 5.6% = normal 5.7% - 6.4% = increased risk for diabetes (prediabetes) >=6.5% = diabetes Goals for glycemic control (ADA 2016) < 7.0% Target for non adults with diabetes. More or less stringent targets may be appropriate for individual patients. <7.5% Target for Children and adolescents with type 1 diabetes. Specimen Blood Performing Organization Address [facility] Ph one Number [facility] DEPARTMENT OF [address] [place] [address] PATHOLOGY AND [facility] MEDICINE [address] * Lipid panel (04/28/2019 4:00 AM CDT) Cholesterol 142 <200 mg/dL [facility] Triglycerides 110 <150 mg/dL [facility] HDL cholesterol 61 >40 mg/dL [facility] LDL cholesterol 68Comment: Result obtained by <100 mg/dL [place] direct LDL measurement [facility] Lipid panel SeeBelow [place] interpretation Comment: [facility] Total Cholesterol (mg/dL) [facility] <200 Desirable 200-239 Borderline-high >=240 High Triglycerides [...] Performing Organization Address City/State/Zipcode Ph one Number [facility] DEPARTMENT OF [address] [place] [address] PATHOLOGY AND GENOMIC MEDICINE [place] [facility] [address] [place] [address] HOSPITAL after 04/08/2019 Insurance Type Payer Benefit Subscriber ID Effective Phone Address Plan / Dates Group PPO MULTIPLAN MULTIPLAN xxxxxxxxx [id number] [facility] PPO resent Advance Directives For more information, please contact: [phone] Patient Software Publisher Explanation Type Date Recorded Advance Directives, 06/20/2019 9:35 PM Living Will and Medical Power of [employer] Advance Directives, 05/13/2018 5:15 PM Living Will and Medical Power of [employer] Advance Directives, 06/20/2019 9:37 PM Living Will and Medical Power of [employer] Advance Directives, 06/20/2019 9:39 PM Living Will and Medical Power of [employer] Date Inactivated Comments Code Status Date Activated [...]
--- OUTSIDE RECORDS SUMMARY | 2020-04-08 00:58 | XMS REPORT | Clinical Summary ---
Author Author KEVIN [facility] Address Unknown Phone Unavailable Care Team Providers Care Stummel Selector Name Role Phone Pcp, No PCP Unavailable Allergies Comments Active Allergy Reactions Severity Noted Date Dystonia Haloperidol 12/22/2015 Ketorolac Tromethamine Rash Low [...] q 72 hours 0 for 3 doses. Active diazePAM (VALIUM) 5 MG Take 1 tablet 10 tablet 0 0 tablet (5 mg total) 0 by mouth every 8 (eight) hours as needed for Anxiety. Max Daily Amount: 15 mg 06/22/2019 Discontinued diazepam (VALIUM) 10 MG Take [...] tablet mouth every night as needed . 06/22/2019 Discontinued citalopram (CELEXA) 20 MG Take 1 tablet 30 tablet 0 tablet (20 mg total) 9 by mouth daily. 05/01/2019 doxycycline (VIBRAMYCIN) Take 1 28 capsule [...] 11/16/2019 acetaminophen-codeine Take 1-2 15 tablet 0 04/0 (TYLENOL #3) 300-30 mg tablets by 0 per tablet mouth every 6 (six) hours as needed for Pain for up to 10 days. Max Daily Amount: 8 tablets 11/13/2019 promethazine (PHENERGAN) Take 1 tablet 30 tablet 0 25 MG tablet (25 mg total) 0 by mouth every 6 (six) hours as needed for Nausea for up to 7 days. 01/04/2020 acetaminophen-codeine Take 1-2 15 tablet 0 12/03 (TYLENOL #3) 300-30 mg tablets by 0 per tablet mouth every 6 (six) hours as needed for Pain for up to 10 days. Max Daily Amount: 8 tablets 12/30/2019 nitrofurantoin, Take 1 10 capsule 0 macrocrystal-monohydrate, capsule (100 0 (MACROBID) 100 MG capsule mg total) by mouth 2 (two) times daily for 5 days. 03/03/2020 LORazepam (ATIVAN) 0.5 MG Take 1 tablet 15 tablet 0 tablet (0.5 mg 0 total) by mouth 3 (three) times daily as needed for Anxiety for up to 10 days. Max Daily Amount: 1.5 mg 03/15/2020 acetaminophen-codeine Take 1 tablet 10 tablet 0 (TYLENOL #3) 300-30 mg by mouth 0 per tablet every 6 (six) hours as needed for Pain for up to 7 days. Max Daily Amount: 4 tablets 03/15/2020 promethazine (PHENERGAN) Take 1 tablet 30 tablet 0 25 MG tablet (25 mg total) 0 by mouth every 6 (six) hours as needed for Nausea for up to 7 days. Active Problems Problem Noted Date Cellulitis of right leg 03/18/2018 Osteomyelitis Overview: finger, Hyperthyroidism Fibroid, uterine Depression Anxiety Encounters Care Team Description Date Type Specialty Thomas George MD Chronic abdominal pain (Primary Dx) 04/04/2020 Emergency Emergency Medicine Daron Rosenbaum MD Stone, Mary Catherine, MD Generalized abdominal pain (Primary Dx); Nausea and vomiting in adult; Anxiety 03/10/2020 Emergency Emergency Medicine Luca Urena MD Generalized abdominal pain (Primary Dx); Nausea and vomiting, intractability of vomiting not specified, unspecified vomiting type 03/08/2020 Emergency Emergency Medicine 03/08/2020 Travel Luca Urena MD Anxiety (Primary Dx); Grief reaction 02/22/2020 Emergency Emergency Medicine Nathaly Downs MD Lower abdominal pain (Primary Dx); Dysuria 01/14/2020 Emergency Emergency Medicine Agata Hdez MD 12/31/2019 [facility] Internal [facility] - Encounter 01/01/2020 Nathaly Downs MD Acute cystitis without hematuria [...] Dx) 04/15/2019 Emergency Emergency Medicine 04/15/2019 Travel after 04/08/2019 Family History Medical History Relation [...] Vital Signs Time Taken Vital Sign Reading 04/04/2020 1:13 AM CDT Blood Pressure 114/82 04/04/2020 1:13 AM CDT Pulse 91 04/04/2020 1:13 AM CDT Temperature 36.3 C (97.4 F) 04/04/2020 1:13 AM CDT Respiratory Rate 20 04/04/2020 1:13 AM CDT Oxygen Saturation 100% - Inhaled Oxygen - Concentration 03/10/2020 4:42 AM CDT Weight 65.8 kg (145 lb) 03/08/2020 12:15 PM CDT Height 167.6 cm (5' 6") 03/10/2020 4:42 AM CDT Body Mass Index 23.4 Plan of Treatment Not on file Procedures Comments Procedure Name Priority Date/Time Associated Diag nosis CBC W/PLT COUNT & AUTO STAT 03/08/2020 DIFFERENTIAL 1:29 PM CDT HCG, SERUM, QUALITATIVE STAT 03/08/2020 1:29 PM CDT LIPASE STAT 03/08/2020 1:29 PM CDT COMPREHENSIVE METABOLIC STAT 03/08/2020 PANEL 1:29 PM CDT CBC W/PLT COUNT & AUTO STAT 03/08/2020 DIFFERENTIAL 1:29 PM CDT URINALYSIS W/ MICROSCOPIC STAT 03/08/2020 12:[address] ABDOMEN/PELVIS WITHOUT STAT 01/14/2020 IV CONTRAST 7:17 PM CDT CBC W/PLT COUNT & AUTO STAT 01/14/2020 DIFFERENTIAL 6:52 PM CDT LIPASE STAT 01/14/2020 6:52 PM CDT BASIC METABOLIC PANEL (7) STAT 01/14/2020 6:52 PM CDT CBC W/PLT COUNT & AUTO STAT 01/14/2020 DIFFERENTIAL 6:52 PM CDT HEPATIC FUNCTION PANEL STAT 01/14/2020 4:40 PM CDT URINALYSIS W/ MICROSCOPIC STAT 01/14/2020 4:29 PM CDT RAPID DRUG SCREEN, URINE STAT 01/14/2020 4:29 PM CDT SCREEN, URINE STAT 01/14/2020 4:29 PM CDT URINE CULTURE Routine 01/14/2020 4:29 PM CDT RAPID DRUG SCREEN, URINE Routine 01/01/2020 9:06 AM CDT CBC W/PLT COUNT & AUTO Routine 01/01/2020 DIFFERENTIAL 6:24 AM CDT T4, FREE Routine 01/01/2020 6:24 AM CDT TSH/FREE T4 IF INDICATED Routine 01/01/2020 6:24 AM CDT BASIC METABOLIC PANEL (7) Routine 01/01/2020 6:24 AM CDT CBC W/PLT COUNT & AUTO Routine 01/01/2020 DIFFERENTIAL 6:[address] ABDOMEN/PELVIS WITHOUT STAT 12/25/2019 IV CONTRAST [...] LAB REPORT - 09/29/2019 SCAN 3:33 PM DISPATCH SUPERVISOR US PELVIS WITH ENDOVAG STAT 09/24/2019 WITH DOPPLER 12:15 PM DISPATCH SUPERVISOR URINALYSIS W/ REFLEX STAT 09/24/2019 URINE CULTURE 9:56 AM DISPATCH SUPERVISOR SCREEN, URINE STAT 09/24/2019 9:[address] ABDOMEN/PELVIS WITH IV STAT 08/17/2019 CONTRAST 12:56 PM DISPATCH SUPERVISOR SCREEN, URINE STAT 08/17/2019 12:33 PM DISPATCH SUPERVISOR CBC W/PLT COUNT & AUTO STAT 08/17/2019 DIFFERENTIAL 11:37 AM DISPATCH SUPERVISOR LIPASE STAT 08/17/2019 11:37 AM DISPATCH SUPERVISOR HEPATIC FUNCTION PANEL STAT 08/17/2019 11:37 AM DISPATCH SUPERVISOR LACTIC ACID, VENOUS STAT 08/17/2019 11:37 AM DISPATCH SUPERVISOR BASIC METABOLIC PANEL (7) STAT 08/17/2019 11:37 AM DISPATCH SUPERVISOR CBC W/PLT COUNT & AUTO STAT 08/17/2019 DIFFERENTIAL 11:37 AM DISPATCH SUPERVISOR US PELVIS WITH ENDOVAG STAT 08/03/2019 WITH DOPPLER 1:[address] ABDOMEN/PELVIS WITH IV STAT 08/02/2019 CONTRAST 11:01 PM DISPATCH SUPERVISOR LIPASE STAT 08/02/2019 10:21 PM DISPATCH SUPERVISOR COMPREHENSIVE METABOLIC STAT 08/02/2019 PANEL 10:21 PM DISPATCH SUPERVISOR CBC W/PLT COUNT & AUTO STAT 08/02/2019 DIFFERENTIAL 9:07 PM DISPATCH SUPERVISOR CBC W/PLT COUNT & AUTO STAT 08/02/2019 DIFFERENTIAL 9:07 PM DISPATCH SUPERVISOR URINALYSIS W/ MICROSCOPIC STAT 08/02/2019 9:00 PM DISPATCH SUPERVISOR SCREEN, URINE STAT 08/02/2019 9:00 PM DISPATCH SUPERVISOR (MANUAL DIFFERENTIAL) STAT 07/28/2019 7:09 PM DISPATCH SUPERVISOR CBC W/PLT COUNT & AUTO STAT 07/28/2019 DIFFERENTIAL 7:09 PM DISPATCH SUPERVISOR URINALYSIS W/ MICROSCOPIC STAT 07/28/2019 7:09 PM DISPATCH SUPERVISOR SCREEN, URINE STAT 07/28/2019 7:09 PM DISPATCH SUPERVISOR CBC W/PLT COUNT & AUTO STAT 07/28/2019 DIFFERENTIAL 7:09 PM DISPATCH SUPERVISOR LIPASE STAT 07/28/2019 7:09 PM DISPATCH SUPERVISOR COMPREHENSIVE METABOLIC STAT 07/28/2019 PANEL 7:09 PM DISPATCH SUPERVISOR US PELVIS WITH ENDOVAG STAT 04/17/2019 WITH [...] SCREEN, URINE STAT 04/15/2019 4:02 PM CDT after 04/08/2019 Results * CBC with platelet count + automated diff (03/08/2020 1:29 PM CDT) Only the most recent of 10 results within the time period is included. WBC 3.1 (L) 4.0 - 10.0 K/L [facility] RBC 4.03 4.00 - 5.00 M/L [facility] Hemoglobin 12.9 12.0 - 15.5 GM/DL [facility] Hematocrit 38.7 36.0 - 46.0 % [facility] MCV 96.0 82.0 - 99.0 fL [facility] MCH 32.0 27.0 - 33.0 pg [facility] MCHC 33.3 32.0 - 36.0 GM/DL [facility] RDW 12.2 12.0 - 15.0 % [facility] Platelets 287 150 - 430 K/CU MM [facility] MPV 10.5 6.0 - 11.5 fL [facility] nRBC 0 0 - 0 /100 WBC [facility] % Neutros 43 % [facility] % Lymphs 47 % [facility] % Monos 6 % [facility] % Eos 4 % [facility] % Baso 1 % [facility] # Neutros 1.34 (L) 1.80 - 8.00 K/L [facility] # Lymphs 1.45 (L) 1.48 - 4.50 K/L [facility] # Monos 0.18 0.00 - 1.30 K/L [facility] # Eos 0.12 0.00 - 0.50 K/L [facility] # Baso 0.03 0.00 - 0.20 K/L [facility] Immature 0 0 - 0 % [facility] Specimen Blood Performing Organization Address City/State/Zipcode Ph one Number [facility] [address], [place] [phone] * hCG, serum, qualitative (03/08/2020 1:29 PM CDT) Preg Test, Serum Negative [facility] Specimen Body Fluid Performing Organization Address [facility] Ph one Number [facility] [address], [place] [id number] * Lipase (03/08/2020 1:29 PM CDT) Only the most recent of 9 results within the time period is included. Lipase 18 6 - 51 U/L [facility] Specimen Blood Narrative Performed At Roll Up Guider Operator ID - [id number] [facility] Performing Organization Address [facility] Ph one Number [facility] [address] [place] [address] * Comprehensive metabolic panel (03/08/2020 1:29 PM CDT) Only the most recent of 4 results within the time period is included. Protein, Total 8.4Comment: Specimen slightly 6.0 - 8.5 gm/dL [facility] hemolyzed LAB[facility]ORY Albumin 4.7Comment: Specimen slightly 3.5 - 5.0 g/dL [facility]zed [facility] Alkaline Phosphatase 43 30 - 115 U/L [facility] Total Bilirubin 0.3Comment: Specimen slightly 0.1 - 1.2 mg/dL [facility] Sodium 139 135 - 148 meq/L [facility] Potassium 3.8Comment: Specimen slightly 3.6 - 5.5 meq/L [facility] hemolyzed [facility] Chloride 107 (H) 98 - 106 meq/L [facility] CO2 18 (L) 20 - 29 meq/L [facility] BUN 13 10 - 26 mg/dL [facility] Creatinine 0.77Comment: Specimen slightly 0.50 - 1.20 mg/ dL [facility] Glucose 69 (L) 70 - 110 mg/dL [facility] Calcium 9.3 8.5 - 10.5 mg/dL [facility] AST 20Comment: Specimen slightly 5 - 40 U/L [facility] ALT 8Comment: Specimen slightly 5 - 50 U/L [facility] [facility] EGFR 103Comment: ESTIMATED GFR IS mL/min/1.73 sq m [facility] NOT ACCURATE CREATININE [facility] CLEARANCE IN PREDICTING GLOMERULAR FILTRATION RATE. ESTIMATED GFR IS NOT APPLICABLE FOR DIALYSIS PATIENTS. Specimen Blood Narrative Performed At Roll Up Guider Operator ID - [id number] [facility] Performing Organization Address City/[facility] Ph one Number [facility] [address] [place] [address] * Urinalysis w/Microscopic (03/08/2020 12:42 PM CDT) Only the most recent of 8 results within the time period is included. Color, UA Yellow [facility] Clarity, UA Clear [facility] Specific [place], UA >=1.030 1.001 - 1.035 [facility] pH, UA 5.5 5.0 - 8.0 [facility] Protein, UA Negative Negative [facility] Glucose, UA Negative Negative [facility] Ketones, UA Negative Negative [facility] Bilirubin, UA Negative Negative [facility] Blood, UA Negative Negative [facility] Nitrite, UA Negative Negative [facility] Leukocytes, UA Negative Negative [facility] Urobilinogen, UA 0.2 0.2 - 1.0 mg/dL [facility] Bacteria, UA Few [facility] RBC, UA None Seen /HPF [facility] WBC, UA <5 /HPF [facility] SQUAMOUS EPITHELIAL 10-20 /HPF [facility] Specimen Source [facility] Specimen Urine Performing Organization Address City/State[facility] Ph one Number [facility] [address] [place] [address] * CT abdomen pelvis without contrast (01/14/2020 7:17 PM CDT) Only the most recent of 2 results within the time period is included. Specimen Narrative Performed At FINAL REPORT [facility] CLINICAL HISTORY: Dysuria FINDINGS: Multiple axial images of the abdomen an d pelvis were performed without intravenous contrast. Oral cont rast was not given. There is enteric contrast in the colon from rece nt imaging procedure performed at an outside facility. This exam was performed according to r departmental dose-optimization program, which includ es automated exposure control, adjustment of the mA and/or kV accordin g to patient size and/or use of the iterative reconstruction techniq ue. Comparison: 12/25/2019 Lower chest: Clear lungs. No pleural ef fusion or pneumothorax. Visualized cardiac contours normal. Liver: No significant findings. Gallbladder and biliary tree: No signif icant findings. Spleen: No significant findings. Adrenal Glands: No significant findings . Kidneys and ureters: No significant fin dings. No nephrolithiasis or noncontrast CT evidence of obstructive uropathy. Stomach and Duodenum: No significant fi ndings. Pancreas: No significant findings. Bowel: No obstruction or pneumatosis in testinalis. Appendix: Normal. Bladder: No significant findings. Major vascular structures: No significa nt findings. Reproductive organs: No significant fin dings. Other: No free air, fluid or adenopathy Skeleton: No acute bony abnormality. IMPRESSION: No acute abnormality to explain the pat ient's dysuria. No significant interval change from previous. Enteric contrast in the normal large in testine from a recent imaging procedure performed at an outside formerly [facility] ity. Please correlate with intervening history. Signed: Gilles Pichardo MD Report Verified Date/Time: 0 19:36:56 Procedure Note Interface, External Ris In - 01/14/2020 7:39 PM CDT FINAL REPORT CLINICAL HISTORY: Dysuria FINDINGS: Multiple axial images of the abdomen and pelvis were performed without intravenous contrast. Oral contrast was not given. There is enteric contrast in the colon from recent imaging procedure performed at an outside facility. This exam was performed according to our departmental dose-optimization program, which includes automated exposure control, adjustment of the mA and/or kV according to patient size and/or use of the iterative reconstruction technique. Comparison: 12/25/2019 Lower chest: Clear lungs. No pleural effusion or pneumothorax. Visualized cardiac contours normal. Liver: No significant findings. Gallbladder and biliary tree: No significant findings. Spleen: No significant findings. Adrenal Glands: No significant findings. Kidneys and ureters: No significant findings. No nephrolithiasis or noncontrast CT evidence of obstructive uropathy. Stomach and Duodenum: No significant findings. Pancreas: No significant findings. Bowel: No obstruction or pneumatosis intestinalis. Appendix: Normal. Bladder: No significant findings. Major vascular structures: No significant findings. Reproductive organs: No significant findings. Other: No free air, fluid or adenopathy Skeleton: No acute bony abnormality. IMPRESSION: No acute abnormality to explain the patient's dysuria. No significant interval change from previous. Enteric contrast in the normal large intestine from a recent imaging procedure performed at an outside facility. Please correlate with intervening history. Signed: Gilles Pichardo MD Report Verified Date/Time: 01/14/2020 19:36:56 Performing Organization Address [facility] one Number [facility] * Basic metabolic panel (Na, K+, Cl, CO2, Glu, Ca, BUN, Cr) (01/14/2020 6:52 PM CDT) Only the most recent of 6 results within the time period is included. Sodium 136 135 - 148 meq/L [facility] Potassium 4.9Comment: Specimen 3.6 - 5.5 meq/L [facility] Chloride 109 (H) 98 - 106 meq/L [facility] CO2 15 (L) 20 - 29 meq/L [facility] BUN 18 10 - 26 mg/dL [facility] Creatinine 0.69Comment: Specimen 0.50 - 1.20 mg/dL [facility] Glucose 70 70 - 110 mg/dL [facility] Calcium 9.4 8.5 - 10.5 mg/dL [facility] EGFR 117Comment: ESTIMATED GFR IS mL/min/1.73 sq m [facility] NOT ACCURATE CREATININE LAB[facility] CLEARANCE IN PREDICTING GLOMERULAR FILTRATION RATE. ESTIMATED GFR IS NOT APPLICABLE FOR DIALYSIS PATIENTS. Specimen Blood Narrative Performed At Roll Up Guider Operator ID - [id number] [facility] Performing Organization Address [facility] one Number [facility] [address], [place] [id number] * Liver Panel (01/14/2020 4:40 PM CDT) Only the most recent of 5 results within the time period is included. Protein, Total 8.8 (H) 6.0 - 8.5 gm/dL [facility] Albumin 4.4 3.5 - 5.0 g/dL [facility] Total Bilirubin 0.2 0.1 - 1.2 mg/dL [facility] Bilirubin, Direct <0.1 0.0 - 0.4 mg/dL [facility] Alkaline Phosphatase 36 30 - 115 U/L [facility] AST 35 5 - 40 U/L [facility] ALT 11 5 - 50 U/L [facility] Specimen Blood Narrative Performed At Roll Up Guider Operator ID - [email or web address] [facility] Performing Organization Address [facility] one Number [facility] [address] [place] [address] * Rapid drug screen, urine (01/14/2020 4:29 PM CDT) Only the most recent of 2 results within the time period is included. Barbiturate Screen Negative Negative [facility] Benzodiazepine Screen Positive (A) Negative [facility] Cocaine (Metab.) Screen Positive (A) Negative [facility] Methadone Screen Negative Negative [facility] Opiate Screen Positive (A) Negative [facility] Cannabinoid Screen Negative Negative [facility] Amph/Methamph Screen Positive (A) Negative [facility] Phencyclidine Screen Negative Negative [facility] pH, UA 7.0 5.0 - 8.0 [facility] Specimen Urine Narrative Performed At [facility] Cocaine 300 ng/mL [facility] [id number] n g/mL [id number] ng/mL Barbiturate 200 ng/ mL Kaqjpqihyjvxq18 ng/ mL Opiate3 00 ng/mL Methadone 300 n g/mL Amphetamine/ 1000 ng/mL Methamphetamine This assay provides an unconfirmed qual itative test result for the clinical management of patients in emergency sit uations. Chain of custody not maintained. Some [id number] medications, as w ell as adulterants, may cause inaccurate results. Clinical correlation should be applied. A more comprehensive drug screen or confirmation of a detected dr ug may be performed upon request. Roll Up Guider Operator ID - MANUELITO Roll Up Guider Operator ID - MANUELITO Roll Up Guider Operator ID - [email or web address] Roll Up Guider Operator ID - [email or web address] Roll Up Guider Operator ID - [email or web address] Roll Up Guider Operator ID - MANUELITO Roll Up Guider Operator ID - MANUELITO Roll Up Guider Operator ID - [email or web address] Performing Organization Address [facility] one Number [facility] [address] [place] [address] * screen, urine (01/14/2020 4:29 PM CDT) Only the most recent of 9 results within the time period is included. Preg Test, Ur Negative [facility] Specimen Urine Performing Organization Address [facility] one Number [facility] [address], [place] [address] * Urine culture (01/14/2020 4:29 PM CDT) Only the most recent of 2 results within the time period is included. Result >100,000 col/mL skin vane [facility] Specimen Urine Performing Organization Address [facility] one [facility] [address] [place] [id number] * TSH/Free T4 If Indicated (01/01/2020 6:24 AM CDT) TSH 0.330 (L) 0.350 - 5.500 uIU/mL [facility] Specimen Blood Narrative Performed At Roll Up Guider Operator ID - [id number] [facility] Performing Organization Address [facility] one [facility] [address] [place] [address] * T4, free (01/01/2020 6:24 AM CDT) Free T4 0.79 (L) 0.90 - 1.80 ng/dL [facility] Specimen Blood Narrative Performed At Roll Up Guider Operator ID - [id number] [facility] Performing Organization Address [facility] one [facility] [address] [place] [id number] * Lactic acid, venous (12/25/2019 2:10 AM CDT) Only the most recent of 4 results within the time period is included. Lactate, Venous 0.41 (L) 0.50 - 2.00 mmol/L [facility] Specimen Blood Narrative Performed At Roll Up Guider Operator ID - RESORIAN [facility] Performing Organization Address [facility] one [facility] [address] [place] [id number] * CT abdomen pelvis with IV contrast (11/06/2019 3:59 PM CDT) Only the most recent of 3 results within the time period is included. Specimen Narrative Performed At FINAL REPORT [facility] TECHNIQUE: CT of the abdomen and pelvis [...] are no signs of p erforation. Signed: Zhang Garrett MD Report Verified Date/Time: 0 16:13:27 Reading Location: [facility] B1 C013Y CT Body Reading Room Procedure Note [...] Report Verified Date/Time: 11/06/2019 16:13:27 Reading Location: [facility] B1 C013Y CT Body Reading Room Performing Organization Address [facility]/State[facility] Ph one Number [facility] * HIV-1 Antigen with HIV-1/2 Antibody (11/06/2019 1:58 PM CDT) HIV-1 Antigen with HIV Nonreactive Nonreactive [facility] 1&2 Antibody [facility] Specimen Blood Narrative Performed At Roll Up Guider Operator ID - [id number] [facility] Performing Organization Address City/State[facility] Ph one Number [facility] [address] [place] [address] * STD Panel - CT/GC RNA (11/06/2019 1:47 PM CDT) Only the most recent of 2 results within the time period is included. C. trachomatis RNA, TMA NOT DETECTED [facility] N. gonorrhoeae RNA, TMA NOT DETECTED [facility] Comment: [facility] REFERENCE RANGE:NOT DETECTED Methodology: [employer] Mediated Amplification (TMA) to detect RNA. The analytical performance characteristics of this assay, when used to test SurePath(TM) specimens have been determined by [facility]. The modifications have not been cleared or approved by the FDA. This assay has been validated pursuant to the CLIA regulations and is used for clinical purposes. For additional information, please refer to https://education.[employer].Sunrun/faq/VLA715 (This link is being provided for informational/ educational purposes only.) Specimen Vaginal Swab Narrative Performed At Performing Lab [employer] [facility] [facility], [facility]. [id number] [place] [id number] Ash Peres MD Performing Organization Address City/State/Zipcode Ph one Number [facility], [address] [place], [place] [employer] [address] [address] * Wet prep, genital (11/06/2019 1:47 PM CDT) Only the most recent of 2 results within the time period is included. WBC - wet prep Few white blood cells seen [facility] Clue cells - wet prep No clue cells seen [facility] Yeast - wet prep No budding yeast seen [facility] Trichomonas - wet prep No Trichomonas seen [facility] Bacteria - wet prep Moderate bacteria seen [facility] Specimen Genital Performing Organization Address City/State/Zipcode Ph one Number [facility] [address] [place], [place] [id number] * PERMANENT LAB REPORT - SCAN (09/29/2019 3:33 PM DISPATCH SUPERVISOR) Narrative Performed At This result has an attachment that is n ot available. * US pelvis with endovag with doppler (09/24/2019 12:15 PM DISPATCH SUPERVISOR) Only the most recent of 3 results within the time period is included. Specimen Narrative Performed At FINAL REPORT [facility] PELVIC ULTRASOUND, WITH ENDOVAGINAL OFE DY AND [...] Report Verified Date/Time: 0 12:25:17 Reading Location: [facility] Radiology Readi Room Procedure Note Interface, External Ris In - 09/24/2019 12:27 PM DISPATCH SUPERVISOR FINAL REPORT PELVIC ULTRASOUND, WITH ENDOVAGINAL STUDY [...] Report Verified Date/Time: 09/24/2019 12:25:17 Reading Location: [facility] Radiology Reading Room Performing Organization Address [facility] one Number GE RIS * Urinalysis w/Microscopic + Reflex to Culture (09/24/2019 9:56 AM DISPATCH SUPERVISOR) Color, UA Yellow [facility] Clarity, UA Clear [facility] Specific [place], UA 1.010 1.001 - 1.035 [facility] pH, UA 6.0 5.0 - 8.0 [facility] Protein, UA Negative Negative [facility] Glucose, UA Negative Negative [facility] Ketones, UA Negative Negative [facility] Bilirubin, UA Negative Negative [facility] Blood, UA Moderate (A) Negative [facility] Nitrite, UA Negative Negative [facility] Leukocytes, UA Negative Negative [facility] Urobilinogen, UA 0.2 0.2 - 1.0 mg/dL [facility] Bacteria, UA Few [facility] RBC, UA <5 /HPF [facility] WBC, UA <5 /HPF [facility] SQUAMOUS EPITHELIAL <5 /HPF [facility] Specimen Source [facility] Specimen Urine Performing Organization Address [facility] one Number [facility] [address] [place] [address] * Manual Differential (07/28/2019 7:09 PM DISPATCH SUPERVISOR) Total Counted [facility] WBC Morphology Normal [facility] RBC Morphology Normal [facility] Hypogranular Platelet Present [facility] Specimen Blood Performing Organization Address [facility] one Number [facility] [address] [place], [place] [id number] * Blood gas, venous (04/15/2019 4:30 PM CDT) pH, Erasmo 7.37 7.32 - 7.42 [facility], [facility], [facility] pCO2, Erasmo 46 41 - 51 mm Hg [facility] pO2, Erasmo 38 25 - 40 mm Hg [facility] O2 Sat, Erasmo 69.9 40.0 - 70.0 % [facility] HCO3, Erasmo 26 21 - 29 mmol/L [facility] Base Excess, Erasmo 0.1 -2.0 - 3.0 mmol/L [facility], [facility], [facility] Patient Temperature 37.0 [facility] FIO2 21 [facility] Spec[facility] Blood Performing Organization Address [facility] Ph one [facility] [address] [place] [address] [facility] after 04/08/2019 Insurance Payer Benefit Subscriber ID Type Phone Address Plan / Group MEDICAID MEDICAID xxxxxxxxx Medicaid [facility] Advance Directives For more information, please contact: [facility] [address] [place] [address] Date Inactivated Comments Code Status Date Activated 03/21/2018 12:35 PM Full Code 03/18/2018 1:21 AM This code status was determined by: Patient
--- OUTSIDE RECORDS SUMMARY | 2020-04-08 01:00 | XMS REPORT | Continuity of Care Document ---
Author Author [facility] t Organization [facility] t Address [address] [place] [address] Phone Unavailable Care Team Providers Care Retort Firer Name Role Phone NO, PCP PCP Unavailable Ariel ROBLERO, Laurie Guzman Attphys [phone] Corbin Leung MD Attphys Sekou ROBLERO, Santiago Menard Attphys DR YANI MENDES Attphys Unavailable Robi ROBLERO, Monik Neri Attphys Himanshu ROBLERO, Jil Andersen Attphys Romel ROBLERO, Wilfrid Segovia Attphys WILFRID MALCOLM Attphys Unavailable uLis HILARIO Attphys Unavailable Manan ARAUJO Attphys Unavailable JIL DOWNS Attphys Unavailable Anila ROBLERO, Monica Cevallos Attphys Sylwia PITT, Ayanna Attphys Unavailable Lemuel ROBLERO, Cherry Parmar Attphys [phone] CHERRY PARK Attphys Unavailable Steve WAGNER Attphys Unavailable MONIK JAIMES Attphys Unavailable Michelle ROBLERO, Gregorio Marion Attphys Guillermomedhat DO, Denilson Attphys Thien ROBLERO, Harrison Attphys Alex ROBLERO, Nilay Dowell Attphys NILAY JOHNSON Attphys Unavailable Rajan ROBLERO, Prieto Garnett Attphys Harsh ROBLERO, Jessie Marlow Attphys Tirmizi DO, H. Aatif Attphys Annabelle ROBLERO, Kristel Boi Attphys Yosef ROBLERO, Mariano Lu Attphys Nuzhat ROBLERO, Fernanda Attphys Lv ROBLERO, Ivette Jerome Attphys Salty ROBLERO, Brian Attphys Yonny ROBLERO, [facility] Attphys [phone] YONNY, [facility] [place] Attphys Unavailable GUBERTHA, RAJEEB Attphys Unavailable BALA POPE Attphys Unavailable RORO ZEE Attphys Unavailable SHARONA JUSTIN Attphys Unavailable Root, G Ryan Attphys Unavailable Root, G Ryan Attphys Unavailable GEORGIE GARCIA Attphys Unavailable MILLER LEYVA Attphys Unavailable LIZZY, BRITNI Attphys Unavailable HOSSAIN, AGUIRRE Attphys Unavailable DR YANI MENDES Admphys Unavailable CHERRY PARK Admphys Unavailable HARRISON MCCLOUD Admphys Unavailable Gui Palacio Admphys Unavailable GRISEL MORGAN Admphys Unavailable RYAN PALACIO M.D., Gui DAVIS Admphys Unava ilable HOSSAIN, AGUIRRE Admphys Unavailable Payers Payer Name Policy Type Policy Number Effective Date Expiration Date S kp [place] [facility] [employer] [id number]-PresentPPO xxxxxxxxx 2019 00:00:00 [facility] [employer] Ppo [id number] 2019 00:00:0 0 [facility] [id number] 2019 00:00:00 [id number] [facility] [id number].[address] [place] [phone] xxxxxxxxx 2018 00:00:00 [facility] [id number] [place] [address] xxxxxx 2017 00:00:00 2027 2 3:59:59 [facility] Problems Condition Name Condition Details Condition Category Status Onset Date Resolution Date Last Treatment Date Treating Clinician Comments Source Right arm cellulitis Right arm cellulitis Disease Active 00:00:00 [facility] Schizoaffective disorder Schizoaffective disorder Disease Acti ve 2019-04-28 00:00:00 [facility] st Psychotic disorder Psychotic disorder Disease Active 2018-06-18 00:00:0 0 [facility] PTSD (post-traumatic stress disorder) PTSD (post-traumatic s tress disorder) Disease Active 2018-06-18 00:00:00 [facility] Marijuana abuse Marijuana abuse Disease Active 2018-06-18 00:00:00 [facility] Cellulitis of right leg Cellulitis of right leg Disease Active 2018-03-18 00:00:00 [facility] affected by growth restriction Pregnan cy affected [...] wound infe ction Disease Active 2016-10-28 00:00:00 [place] [facility] Osteomyelitis of finger Osteomyelitis of finger Disease Active 2016-10-28 00:00:[address] Bacterial skin infection Bacterial skin infection Disease Acti ve 2016-10-25 00:00:[address] Cellulitis of finger of right hand Cellulitis of finger of right hand Disease Active 2016-10-24 00:00:00 [place] [facility] Adjustment disorder with mixed anxiety and depressed m ood Adjustment disorder with mixed anxiety and depressed mood Disease Active 2015-10-25 00:00:00 [facility] Depression Depression Disease Active 2015-03-26 00:00:00 [facility] Polysubstance abuse Polysubstance abuse Disease Active 2015-03-13 00:00 :00 [facility] Other specified persistent mood disorders Other specif ied persistent mood disorders Disease Active 2015-01-10 00:00:00 [facility] Cocaine-induced mood disorder Cocaine-induced mood disorder Disease Active 2014-07-06 00:00:00 [facility] 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 Active 2014-07-06 00:00:00 [facility] Disorder, Substance Use Disorder, Substance Use Disease Active 2014-07-05 00:00:00 [facility] Depression, major, recurrent, severe with psychosis De pression, major, recurrent, severe with psychosis Disease Active 2012-12-30 00:00:00 [facility] Acute stress disorder Acute stress disorder Disease Active 201 09-07-14 00:00:00 [facility] Pelvic pain in female Pelvic pain in female Disease Active 201 08-10-05 00:00:00 [facility] Gastritis Problem Active [facility] Drug ingestion Drug ingestion Disease Active [facility] Benzodiazepine abuse Benzodiazepine abuse Disease Active [facility] 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 Disease Active [facility] Cocaine use Cocaine use Disease Active [facility] Substance-induced disorder Substance-induced disorder Disease Active [facility] Chronic pain of right thumb Chronic pain of right thumb Disease Active [facility] Hyperthyroidism Hyperthyroidism Disease Active [facility] Fibroid, uterine Fibroid, uterine Disease Active [facility] Depression Depression Disease Active [facility] Anxiety Anxiety Disease Active [facility] Allergies, Adverse Reactions, Alerts Allergy Name Allergy Type Status Severity Reaction(s) Onset Date Inacti ve Date Treating Clinician Comments Source haloperidol DA Active U 2020-03-21 00:00:00 [facility] NSAIDS (Non-Steroidal Anti-Inflamma Allergy to substance Active M oderate 2019-12-30 00:00:00 [facility] Penicillin Allergy to substance Active Severe 2019-12-30 00:00:00 [facility] Tramadol Allergy to substance Active Moderate 2019-12-30 00:00:00 [facility] Ondansetron Allergy to substance Active Severe 2019-12-30 00:00:00 [facility] Phenazopyridine Allergy to substance Active Severe 2019-12-30 00:0 0:00 [facility] phenazopyridine HCl DA Active U 2019-06-22 00:00:00 [facility] ketorolac tromethamine DA Active U 2019-06-22 00:00:00 [facility] Penicillins DA Active U 2019-06-22 00:00:00 [facility] risperidone DA Active SV 2019-06-22 00:00:00 [facility] ondansetron DA Active U 2019-06-22 00:00:00 [facility] risperidone DA Active SV 2019-05-31 00:00:00 [facility] Risperidone Propensity to adverse reactions to drug Active Other (See Comments) 2019-05-25 00:00:00 Tongue swelling [place] [facility] Tomato Propensity to adverse reactions to drug Active Rash 2019-04-28 00:00:00 [facility] Ondansetron Hcl Propensity to adverse reactions to drug Active Rash 2019-04-06 00:00:00 [facility] Penicillins DA Active SV 2018-08-31 00:00:00 [facility] phenazopyridine DA Active SV 2018-08-31 00:00:00 [facility] ondansetron DA Active U 2017-12-31 00:00:00 [facility] Ondansetron Propensity to adverse reactions Active Rash 2017 00:00:00 [facility] Tramadol Propensity to adverse reactions to drug Active Rash 2017-12-07 00:00:00 [facility] phenazopyridine HCl DA Active U 2017-11-26 00:00:00 [facility] ketorolac tromethamine DA Active U 2017-11-26 00:00:00 [facility] Penicillins DA Active U 2017-11-26 00:00:00 [facility] Ketorolac Propensity to adverse reactions to drug Active 2016-12-17 00:00:00 [facility] Ketorolac Tromethamine Propensity to adverse reactions Active Rash 2016-12-07 00:00:00 [facility] Nsaids (Non-Steroidal Anti-Inflammatory Drug) Propensity to adverse reactions Active Anaphylaxis 2016-12-07 00:00:00 [facility] Nsaids (Non-Steroidal Anti-Inflammatory Drug) Propensi ty to adverse reactions to drug Active Anaphylaxis 2016-05-07 00:00:00 [facility] Penicillins Propensity to adverse reactions to drug Active Anaphylaxis 2016-04-09 00:00:00 [facility] Haloperidol Propensity to adverse reactions Active 2015 00:00:00 Dystonia [facility] Tramadol Propensity to adverse reactions Active Hives 2015-12 00:00:00 [facility] Penicillins Propensity to adverse reactions to drug Active 2015-03-26 00:00:00 [facility] Penicillins Propensity to adverse reactions Active Maria Antonia phylaxis, Rash 2013-05-31 00:00:00 [facility] Ketorolac Propensity to adverse reactions Active Rash , Swelling 2013-05-31 00:00:00 [facility] Haloperidol Lactate Propensity to adverse reactions to drug Active 2013-01-05 00:00:00 [facility] Propensity to adverse reactions to drug Active Hives 2012-02-08 00:00:00 [facility] Penicillins Propensity to adverse reactions to drug Active Rash 2011-03-24 00:00:00 [facility] Ketorolac Tromethamine Propensity to adverse reactions to drug Acti ve Swelling 2011-03-14 00:00:00 [facility] Phenazopyridine Propensity to adverse reactions Active Rash, Hives, Anaphylaxis 2011-01-25 00:00:00 No latex allergy [facility] Phenazopyridine Propensity to adverse reactions to drug Active Anaphylaxis [facility] Family History Family Member Diagnosis Comments Start Date Stop Date Source Natural mother Cancer [facility] Natural mother Renal Disease [facility] Natural mother Hypertension [facility] Natural mother Kidney disease [facility] Natural mother Cancer [facility] Maternal grandfather Diabetes [facility] Maternal grandfather Hypertension [facility] Maternal grandfather No Known Problems [facility] Natural brother No Known Problems [facility] Cousin No Known Problems [facility] Natural father No Known Problems [facility] Maternal aunt No Known Problems [facility] Maternal grandmother No Known Problems [facility] Maternal uncle No Known Problems [facility] Other No Known Problems [facility] Paternal aunt No Known Problems [facility] Paternal grandfather No Known Problems [facility] Paternal grandmother No Known Problems [facility] Paternal uncle No Known Problems [facility] Natural sister No Known Problems [facility] Social History Social Habit Start Date Stop Date Quantity Comments Source History of tobacco use Cigarette Smoker [facility] Sex Assigned At [facility] Exposure to SARS-CoV-2 (event) Not sure [facility] Cigarettes smoked current (pack per day) - Reported 00:00:00 2020-03-30 00:00:00 [facility] Cigarette pack-years 2020-03-30 00:00:2020-03-30 00:00:00 [facility] Alcohol intake 2020-03-30 00:00:00 2020-03-30 00:00:00 Current non-drinker of alcohol (finding) [facility] Tobacco Comment 2016-12-09 00:00:00 2016-12-09 00:00:00 states s he quit smoking "6 months ago" [facility] Alcohol Comment 2012-12-24 00:00:00 2012-12-24 00:00:00 denies [facility] Smoking Status Start Date Stop Date Source Current some day smoker 2020-03-30 00:00:00 [place] [facility] Current every day smoker 2020-03-10 00:00:00 [facility] Medications Ordered Medication Name Filled Medication Name Start Date Stop Da te Current Medication? Ordering Clinician Indication Dosage Frequency Signature (SIG) Comments Components Source ciprofloxacin (CIPRO) 500 MG tablet 2020-03-30 12:45:4 8 2020-03-30 00:00:00 No Q.5D Take by mouth 2 (two) times a day. Unkno wn dose. [facility] nitrofurantoin, macrocrystal-monohydrate, (MACROBID) 100 MG capsule 2020-03-30 00:00:00 2020-04-06 23:59:00 No 100mg Q.5D Take 1 capsule (100 mg total) by mouth 2 (two) times a day for 7 days. [facility] dicyclomine (BENTYL) 20 mg tablet 2020-03-30 00:00:00 2019 23:59:00 No 20mg Q.5D Take 1 tablet (2 0 mg total) by mouth 2 (two) times a day for 5 days. [facility] metoclopramide (REGLAN) 10 MG tablet 2020-03-30 00:00: 00 2020-04-04 23:59:00 No 10mg Q6H Take 1 tablet ( 10 mg total) by mouth every 6 (six) hours for 5 days. [facility] famotidine (PEPCID) 20 MG tablet 2020-03-30 00:00:00 2020-04 23:59:00 No 20mg Q.5D Take 1 tablet (20 mg total) by m outh 2 (two) times a day for 5 days. [facility] sucralfate (Carafate) 100 mg/mL suspension 03-30 00:00:00 2020-04-04 23:59:00 No 1g Q.25D Take 10 mL (1 g total) by mouth 4 (four) times a day for 5 days. [facility] dicyclomine (BENTYL) 20 mg tablet 2020-03-27 22:41:49 Yes Q.25D Take by mouth 4 (four) times a day. Unknown dose. [facility] metroNIDAZOLE (FLAGYL) 250 MG tablet 2020-03-27 22:41:48 Yes Q.[id number] Take by mouth 3 (three) times a day. Unknown dose. [facility] diazePAM (VALIUM) 5 MG tablet 2020-03-10 00:00:00 Yes 5mg Take 1 tablet (5 mg total) by mouth every 8 (eight) hours as needed for Anxiety. Max Daily Amount: 15 mg [facility] acetaminophen-codeine (TYLENOL #3) 300-30 mg per tablet 2020-03-08 00:00:00 2020-03-15 23:59:00 No 1{tbl} Take 1 tablet by mouth every 6 (six) hours as needed for Pain for up to 7 days. Max Daily Amount: 4 tablets [facility] promethazine (PHENERGAN) 25 MG tablet 2020-03-08 00:00 :00 2020-03-15 23:59:00 No 25mg Take 1 tablet ( 25 mg total) by mouth every 6 (six) hours as needed for Nausea for up to 7 days. [facility] Acetaminophen With Codeine (Tylenol With Codeine #3 Ta blet) 1 Each TABLET Acetaminophen With Codeine (Tylenol With Codeine #3 Tablet) 1 Each TABLET 2020-02-28 18:31:00 Yes 300 Every 6 Hour s as needed for Abdominal Pain [facility] LORazepam (ATIVAN) 0.5 MG tablet 2020-02-22 00:00:00 2020-02 23:59:00 No .5mg Take 1 tablet (0.5 m g total) by mouth 3 (three) times daily as needed for Anxiety for up to 10 days. Max Daily Amount: 1.5 mg [facility] tamsulosin (FLOMAX) 0.4 mg capsule 2020-01-12 00:00:00 202 23:59:00 No .4mg QD Take 1 capsule (0.4 mg total) by mouth d aily for 30 days. [facility] promethazine (PHENERGAN) 25 MG tablet 2020-01-12 00:00 :00 2020-01-19 23:59:00 No 25mg Q6H Take 1 tablet ( 25 mg total) by mouth every 6 (six) hours as needed for nausea or vomiting for up to 7 days. [facility] acetaminophen-codeine (TYLENOL #3) 300-30 mg per tablet 2019-12-25 00:00:00 2020-01-04 23:59:00 No 1{tbl} Take 1-2 tablets by mouth every 6 (six) hours as needed for Pain for up to 10 days. Max Daily Amount: 8 tablets [facility] nitrofurantoin, macrocrystal-monohydrate, (MACROBID) 100 MG capsule 2019-12-25 00:00:00 2019-12-30 23:59:00 No 100mg Q.5D Take 1 capsule (100 mg total) by mouth 2 (two) times daily for 5 days. [facility] Acetaminophen With Codeine (Tylenol With Codeine #3 Ta blet) 1 Each TABLET Acetaminophen With Codeine (Tylenol With Codeine #3 Tablet) 1 Each TABLET 2019-12-01 12:34:00 Yes 300 Four Times Daily a s needed for Pain [facility] Promethazine Hcl (Phenadoz) 25 Mg SUPP.RECT Promethazi ne Hcl (Phenadoz) 25 Mg SUPP.RECT 2019-12-01 12:34:00 Yes 25 Th ree Times A Day as needed for Nausea, Vomiting [facility] Sulfamethoxazole/Trimethoprim (Bactrim Ds Tablet) 1 Ea ch TABLET Sulfamethoxazole/Trimethoprim (Bactrim Ds Tablet) 1 Each TABLET 2019-12-01 12:34:00 Yes 1 Twice A Day [facility] fluconazole (DIFLUCAN) 150 MG tablet 2019-11-06 00:00:00 Ye s Take 1 tab PO q 72 hours for 3 doses. [facility] acetaminophen-codeine (TYLENOL #3) 300-30 mg per tablet 2019-11-06 00:00:00 2019-11-16 23:59:00 No 1{tbl} Take 1-2 tablets by mouth every 6 (six) hours as needed for Pain for up to 10 days. Max Daily Amount: 8 tablets [facility] promethazine (PHENERGAN) 25 MG tablet 2019-11-06 00:00 :00 2019-11-13 23:59:00 No 25mg Take 1 tablet ( 25 mg total) by mouth every 6 (six) hours as needed for Nausea for up to 7 days. [facility] promethazine (PHENERGAN) 25 MG tablet 2019-09-09 00:00 [...] a day for 7 days. [facility] diazePAM (VALIUM) 5 MG tablet 2019-08-17 00:00:00 Yes 5mg Take 1 tablet (5 mg total) by mouth every night as needed (muscle spasm) for up to 12 doses. Max Daily Amount: 5 mg [facility] metroNIDAZOLE (FLAGYL) 500 MG tablet 2019-08-17 00:00: 00 2019-08-27 23:59:00 No 500mg Q.[id number] Take 1 tablet (500 mg total) by mouth 3 (three) times daily for 10 days. [facility] ciprofloxacin HCl (CIPRO) 500 MG tablet 00:00:00 2019-08-24 23:59:00 No 500mg Q.5D Take 1 tablet (500 mg total) by mouth 2 (two) times daily for 7 days. [facility] doxycycline (VIBRAMYCIN) 50 MG capsule 6 00:00:2019-08-16 23:59:00 No 100mg Q.5D Take 2 capsule s (100 mg total) by mouth 2 (two) times a day for 7 days. [facility] HYDROcodone-acetaminophen (NORCO 5-325) 5-325 mg per tablet 2019-07-28 00:00:00 2019-08-07 23:59:00 No 1{tbl} Take 1-2 tablets by mouth every 6 (six) hours as needed for Pain for up to 10 days. Max Daily Amount: 8 tablets [facility] diazepam (VALIUM) 10 MG tablet 2019-06-22 11:40:00 2019-06-22 00 :00:00 No 10mg Take 10 mg by mouth every 6 (six) hours as needed. [facility] ARIPiprazole (ABILIFY) 5 MG tablet 2019-06-22 11:40:00 201 04-14-19 00:00:00 No 10mg QD Take 10 mg by mouth daily . [facility] citalopram (CELEXA) 20 MG tablet 2019-06-22 11:40:00 2019-06 00:00:00 No 20mg QD Take 20 mg by mouth daily. [facility] zolpidem (AMBIEN) 10 mg tablet 2019-06-22 11:40:00 2019-06-22 00 :00:00 No 10mg Take 10 mg by mouth every night as needed . [facility] acetaminophen-codeine (TYLENOL #3) 300-30 mg per tablet 2019-06-20 00:00:00 2019-06-23 23:59:00 No 1{tbl} Take 1-2 tablets by mouth. [facility] acetaminophen-codeine (TYLENOL WITH CODEINE #3) 300-30 mg [...] 2019-04-30 10:34:51 2019-04-30 00 :00:00 No 10mg Q.[id number] Take 10 mg by mouth 3 (three) [...] 2019-04-30 09:31: 32 2019-04-30 00:00:00 No 300mg Q.[id number] Take 300 mg by mouth 3 (three) [...] cephalexin (KEFLEX) 500 MG capsule 2019-04-30 00:00:00 201 04-13-27 23:59:00 No 500mg Q.5D Take 1 capsule ( 500 mg total) by mouth 2 (two) times a day for 30 days .Osteomyelitis. [facility] clindamycin (CLEOCIN) 300 MG capsule 2019-04-30 00:00: 00 2019-05-30 23:59:00 No 300mg Q.[id number] Take 1 capsule (300 mg total) by [...] 2019-04-30 00:00 :00 2019-05-30 23:59:00 No 300mg Q.[id number] Take 1 capsule (300 mg total) by [...] days .insomnia associated with depression. [facility] Am[facility] doxycycline (VIBRAMYCIN) 100 MG capsule 00:00:00 2019-05-01 23:59:00 No 100mg Q.5D Take 1 capsule (100 mg total) by mouth 2 (two) times daily for 14 days. [facility] metroNIDAZOLE (FLAGYL) 500 MG tablet 2019-04-17 00:00: 00 2019-05-01 23:59:00 No 500mg Q.5D Take 1 tablet ( 500 mg total) by mouth 2 (two) times daily for 14 days. [facility] promethazine (PHENERGAN) 25 MG tablet 2019-04-06 00:00 :00 2019-04-30 00:00:00 No 25mg Q6H Take 1 tablet ( 25 mg total) by mouth every 6 (six) hours as needed for nausea or vomiting for up to 30 days. [facility] citalopram (CELEXA) 20 MG tablet 2019-01-21 00:00:00 2019-06 00:00:00 No 20mg QD Take 1 tablet (20 mg total) by mouth daily. [facility] citalopram (CELEXA) 20 mg tablet 2018-07-02 00:00:00 Yes PTSD (post- traumatic stress disorder) 20mg QD Take 1 tablet by mouth daily. [facility] citalopram (CELEXA) 20 MG tablet 2018-07-02 00:00:00 2019-07 00:00:00 No 20mg Take 20 mg by mouth. [facility] gabapentin (NEURONTIN) 400 mg capsule 2018-07-01 00:00:00 Yes PTSD (post- traumatic stress disorder) 400mg Take 1 capsule by mouth 3 times daily. [facility] nicotine polacrilex (NICORETTE) 2 mg Gum 2018-07-01 00:00:00 Yes PTSD (post-traumatic stress disorder) 2mg Place 1 Each inside cheek as needed for Other (nicotene). [facility] QUEtiapine (SEROQUEL) 100 mg tablet 2018-07-01 00:00:00 Yes PTSD (post- traumatic stress disorder) 100mg Take 1 tablet by mouth at b edtime nightly. [facility] QUEtiapine (SEROQUEL) 50 mg tablet 2018-07-01 00:00:00 Yes PTSD (post- traumatic stress disorder) 50mg Q.5D Take 1 tablet by mouth 2 times daily. [facility] QUEtiapine (SEROQUEL) 100 mg tablet 2018-05-04 00:00:00 Yes Polysubstance abuse 100mg Take 1 tablet by mouth at bedtime nightly for 1 4 days. [facility] gabapentin (NEURONTIN) 400 mg capsule 2016-04-20 00:00:00 Yes Polysubstance abuse 400mg Take 1 capsule by mouth 3 times da beverly for 7 days. [facility] gabapentin (NEURONTIN) 400 MG capsule 2016-04-20 00:00 :00 2019-07-28 00:00:00 No 400mg Take 400 mg by mouth. [facility] norgestimate-ethinyl estradiol 0.18/0.215/0.25 mg-35 mcg (28 ) per tablet 2013-08-12 00:00:00 Yes 1{tbl} Take 1 tablet by nathan cabrera. [facility] Immunizations Ordered Immunization Name Filled Immunization Name Date Status Comments Source Rho (D) Immune Globulin 2016-11-02 00:00:00 Completed [facility] Tdap 2016-08-18 00:00:00 Completed [facility] Vital Signs Vital Name Observation Time Observation Value Comments Source Systolic blood pressure 2020-04-04 01:13:00 114 mm[Hg] [facility] Diastolic blood pressure 2020-04-04 01:13:00 82 mm[Hg] [facility] Heart rate 2020-04-04 01:13:00 91 /min [facility] Body temperature 2020-04-04 01:13:00 36.33 Madai [facility] Respiratory rate 2020-04-04 01:13:00 20 /min [facility] Oxygen saturation in Arterial blood by Pulse oximetry 04-04 01:13:00 100 /min [facility] Systolic blood pressure 2020-03-30 12:30:00 110 mm[Hg] [facility] Diastolic blood pressure 2020-03-30 12:30:00 81 mm[Hg] [facility] Heart rate 2020-03-30 12:30:00 82 /min [facility] Respiratory rate 2020-03-30 12:30:00 16 /min [facility] Oxygen saturation in Arterial blood by Pulse oximetry 03-30 12:30:00 100 /min [facility] Body temperature 2020-03-30 09:29:54 37 Madai [facility] Body height 2020-03-30 09:29:00 165.1 cm [facility] Body weight 2020-03-30 09:29:00 68.04 kg [facility] BMI 2020-03-30 09:29:00 24.96 kg/m2 [facility] Body weight Measured 2020-03-10 04:42:00 65.772 kg [facility] BMI 2020-03-10 04:42:00 23.40 kg/m2 [facility] Body height 2020-03-08 12:15:00 167.6 cm [facility] Body Temperature 2020-02-28 18:48:00 99.3 [degF] [facility] Weight 2020-02-28 15:42:00 150 [lb_av] [facility] BMI (Body Mass Index) 2020-02-28 15:42:00 25.0 kg/m2 [facility] Weight 2019-12-30 21:00:00 150 [lb_av] [facility] BMI (Body Mass Index) 2019-12-30 21:00:00 25.0 kg/m2 [facility] Procedures Procedure Date / Time Performed Performing Clinician [facility] e URINE CULTURE 2020-03-30 12:43:00 oCrbin Leung [facility] URINALYSIS SCREEN AND MICROSCOPY, WITH REFLEX TO CULTURE 12:18:00 Corbin Leung HCG QUALITATIVE, URINE SCREEN 2020-03-30 12:18:[address] ABDOMEN PELVIS W CONTRAST 2020-03-30 11:57:05 Andrew Leung XR ABDOMEN ACUTE INC CHEST 1V 2020-03-30 10:58:51 Jonathan Leung HC COMPLETE BLD COUNT W/AUTO DIFF 2020-03-30 10:10:00 Corbin Leung PROTHROMBIN TIME WITH INR 2020-03-30 10:10:00 Corbin Leung COMPREHENSIVE METABOLIC PANEL 2020-03-30 10:10:00 Jonathan Leung LIPASE LEVEL 2020-03-30 10:10:00 Corbin Leung [facility] TROPONIN 2020-03-30 10:10:00 Corbin Leung [facility] B NATRIURETIC PEPTIDE 2020-03-30 10:10:00 Corbin Leung HCG QUALITATIVE, SERUM SCREEN 2020-03-30 10:10:00 Jonathan Leung ESTIMATED GFR 2020-03-30 10:10:00 Corbin Leung [facility] CREATINE KINASE, TOTAL (CPK) 2020-03-30 10:10:00 Madhu Andrew Leos [facility] ECG ED PRELIMINARY INTERPRETATION 2020-03-30 09:48:38 Corbin Leung Ale[facility] ECG 12-LEAD 2020-03-30 09:37:14 Corbin Leung Or [facility]odist COMPREHENSIVE METABOLIC PANEL 2020-03-08 13:29:00 Luca Malcolm cheo [facility] LIPASE 2020-03-08 13:29:00 Romel [facility] HCG, SERUM, QUALITATIVE 2020-03-08 13:29:00 Romel [facility] CBC W/PLT COUNT & AUTO DIFFERENTIAL 2020-03-08 13:29:00 Raf Malcolm [facility] URINALYSIS W/ MICROSCOPIC 2020-03-08 12:42:00 [facility] of abdomen and pelvis without contrast 2020-02-28 00:00:[address] [facility] CT ABDOMEN/PELVIS WITHOUT IV CONTRAST 2020-01-14 19:17:00 Nathaly oDwns [facility] BASIC METABOLIC PANEL (7) 2020-01-14 18:52:00 Nathaly Downs [facility] LIPASE 2020-01-14 18:52:00 Nathaly DownsSepideh [facility] CBC W/PLT COUNT & AUTO DIFFERENTIAL 2020-01-14 18:52:00 Nathan Downs eric [facility] HEPATIC FUNCTION PANEL 2020-01-14 16:40:00 Nathaly Downs [facility] URINE CULTURE 2020-01-14 16:29:00 Nathaly Downs [facility] SCREEN, URINE 2020-01-14 16:29:00 Nathaly Downs e [facility] RAPID DRUG SCREEN, URINE 2020-01-14 16:29:00 Nathaly Downs davide [facility] URINALYSIS W/ MICROSCOPIC 2020-01-14 16:29:00 Nathaly Downs [facility] URINE CULTURE 2020-01-12 22:30:00 Mart Highkellie Yalaha Alev[facility] URINALYSIS SCREEN AND MICROSCOPY, WITH REFLEX TO CULTURE 22:09:[address] ABDOMEN PELVIS WO CONTRAST 2020-01-12 21:45:57 Anila Rajangui dewayne Menesesnguyen Amaral OCCULT BLOOD, STOOL 2020-01-12 21:13:00 Mart Highnguyen Amaral US PELVIC TRANSVAGINAL 2020-01-12 21:04:46 [facility] US PELVIC TRANSABDOMINAL 2020-01-12 21:04:22 [facility] COMPREHENSIVE METABOLIC PANEL 2020-01-12 17:50:00 Anila [facility]i [facility] Am[facility]al ESTIMATED GFR 2020-01-12 17:50:00 [facility] COMPLETE BLD COUNT W/AUTO DIFF 2020-01-12 17:49:00 [facility] LIPASE LEVEL 2020-01-12 17:49:00 Mart High [facility] Alevism HCG QUALITATIVE, SERUM SCREEN 2020-01-12 17:49:00 [facility] RAPID DRUG SCREEN, URINE 2020-01-01 09:06:00 Agata Park Ma irinoe [facility] BASIC METABOLIC PANEL (7) 2020-01-01 06:24:00 Agata Park [facility] TSH/FREE T4 IF INDICATED 2020-01-01 06:24:00 Agata Park Ma [facility] T4, FREE 2020-01-01 06:24:00 Agata Park [facility] CBC W/PLT COUNT & AUTO DIFFERENTIAL 2020-01-01 06:24:00 Agata Rodriges [facility] CT ABDOMEN/PELVIS WITHOUT IV CONTRAST 2019-12-25 04:54:00 Stone, Nathaly Ley [facility] URINE CULTURE 2019-12-25 02:13:00 StoneNathalySepideh [facility] BASIC METABOLIC PANEL (7) 2019-12-25 02:13:00 StoneNathaly [facility] HEPATIC FUNCTION PANEL 2019-12-25 02:13:00 StoneNathalySepideh [facility] LIPASE 2019-12-25 02:13:00 Stone Sepideh [facility] SCREEN, URINE 2019-12-25 02:13:00 StoneNathaly [facility] apryl [facility] URINALYSIS W/ MICROSCOPIC 2019-12-25 02:13:00 StoneNathaly [facility] LACTIC ACID, VENOUS 2019-12-25 02:10:[address] [facility] CBC W/PLT COUNT & AUTO DIFFERENTIAL 2019-12-25 02:10:00 Nathan Downs [facility] CT ABDOMEN/PELVIS WITH IV CONTRAST 2019-11-06 15:59:00 Stone, Yan cortez [facility] SCREEN, URINE 2019-11-06 15:11:00 Stone [facility] apryl [facility] URINALYSIS W/ MICROSCOPIC 2019-11-06 15:11:00 [facility] HIV-1 ANTIGEN WITH HIV-1/2 ANTIBODY 2019-11-06 13:58:00 Nathan Downs [facility] WET PREP 2019-11-06 13:47:00 [facility] CT/GC RNA 2019-11-06 13:47:00 Himanshu [facility] LIPASE 2019-11-06 13:47:00 Daron Jaimes [facility] LACTIC ACID, VENOUS 2019-11-06 13:47:[address] [facility] BASIC METABOLIC PANEL (7) 2019-11-06 13:47:00 Daron Jaimes [facility] HEPATIC FUNCTION PANEL 2019-11-06 13:47:00 Daron Jaimes [facility] CBC W/PLT COUNT & AUTO DIFFERENTIAL 2019-11-06 13:19:00 Daron Jaimes [facility] PERMANENT LAB REPORT - SCAN 2019-09-29 15:33:16 ProviderLinda Scanning [facility] US PELVIS WITH ENDOVAG WITH DOPPLER 2019-09-24 12:15:00 Daron Jaimes [facility] SCREEN, URINE 2019-09-24 09:56:00 Daron Jaimes [facility] URINALYSIS W/ REFLEX URINE CULTURE 2019-09-24 09:56:00 Daron Jaimes [facility] US PELVIC TRANSABDOMINAL 2019-09-09 19:35:00 Nirmal Gutierrez [...] Gutierrez ESTIMATED GFR 2019-09-09 16:55:[address] ABDOMEN/PELVIS WITH IV CONTRAST 2019-08-17 12:56:00 Daron Jaimes [facility] SCREEN, URINE 2019-08-17 12:33:00 Daron Jaimes [facility] BASIC METABOLIC PANEL (7) 2019-08-17 11:37:00 Daron Jaimes [facility] LACTIC ACID, VENOUS 2019-08-17 11:37:00 Daron Jaimes CH I [facility] HEPATIC FUNCTION PANEL 2019-08-17 11:37:00 Daron Jaimes [facility] LIPASE 2019-08-17 11:37:00 Daron Jaimes [facility] CBC W/PLT COUNT & AUTO DIFFERENTIAL 2019-08-17 11:37:00 Daron Jaimes [facility] BASIC METABOLIC PANEL 2019-08-09 04:45:00 Winston Valero ESTIMATED GFR 2019-08-09 04:45:00 Winston Valero URINE DRUGS OF ABUSE SCREEN 2019-08-08 14:15:00 Melanie Baker BASIC METABOLIC PANEL 2019-08-08 05:06:00 Winston Valero HC COMPLETE BLD COUNT W/AUTO DIFF 2019-08-08 05:06:00 Khadar Valero ESTIMATED GFR 2019-08-08 05:06:00 Winston Valero LACTIC ACID LEVEL, SEPSIS - NOW AND REPEAT 2X EVERY 3 HOURS 2019-08-08 02:35:00 TyShanthi LACTIC ACID LEVEL, SEPSIS - NOW AND REPEAT 2X EVERY 3 HOURS 2019-08-07 23:48:00 TyShanthi BLOOD CULTURE, AEROBIC & ANAEROBIC 2019-08-07 21:25:00 Ty, Nora Amaral COMPREHENSIVE METABOLIC PANEL 2019-08-07 21:25:00 TyShanthi HC COMPLETE BLD COUNT W/AUTO DIFF 2019-08-07 21:25:00 TyPasha LACTIC ACID LEVEL, SEPSIS - NOW AND REPEAT 2X EVERY 3 HOURS 2019-08-07 21:25:00 TyShanthi HCG QUALITATIVE, SERUM SCREEN 2019-08-07 21:25:00 TyShanthi ESTIMATED GFR 2019-08-07 21:25:00 TyShanthi BLOOD CULTURE, AEROBIC & ANAEROBIC 2019-08-07 21:20:00 Ty, Nora Leos [facility] US PELVIS WITH ENDOVAG WITH DOPPLER 2019-08-03 01:44:00 [facility]ray[facility]/PELVIS WITH IV CONTRAST 2019-08-02 23:01:00 [facility] COMPREHENSIVE METABOLIC PANEL 2019-08-02 22:21:00 Linda Johnsonrt E rich [facility] LIPASE 2019-08-02 22:21:00 Bosrayne, Delmer Nilay [facility] CBC W/PLT COUNT & AUTO DIFFERENTIAL 2019-08-02 21:07:00 Alex, St uart [facility] SCREEN, URINE 2019-08-02 21:00:00 Delmer Johnson C [facility] URINALYSIS W/ MICROSCOPIC 2019-08-02 21:00:00 Alex Delmer [facility] COMPREHENSIVE METABOLIC PANEL 2019-07-28 19:09:00 Luca Malcolm Ch [facility] LIPASE 2019-07-28 19:09:00 Luca Malcolm [facility] SCREEN, URINE 2019-07-28 19:09:00 Luca Malcolm CH I [facility] URINALYSIS W/ MICROSCOPIC 2019-07-28 19:09:00 Luca Malcolm [facility] CBC W/PLT COUNT & AUTO DIFFERENTIAL 2019-07-28 19:09:00 Raf Malcolm [facility] (MANUAL DIFFERENTIAL) 2019-07-28 19:09:00 Luca Malcolm [facility] US PELVIC TRANSVAGINAL 2019-06-21 00:11:35 Raeann Tatum US PELVIC TRANSABDOMINAL 2019-06-21 00:11:[address] ABDOMEN PELVIS W CONTRAST 2019-06-20 23:14:46 Raeann Tatum URINE CULTURE 2019-06-20 21:23:00 Raeann Tatum GRAM STAIN 2019-06-20 21:23:00 Tatum, Raeann Amaral HC COMPLETE BLD COUNT W/AUTO DIFF 2019-06-20 20:58:00 Harsh, Meenakshi Angelomono Amaral COMPREHENSIVE METABOLIC PANEL 2019-06-20 20:58:00 Harsh, Raeann Jessie Amaral LIPASE LEVEL 2019-06-20 20:58:00 Harsh, Raeann Jessie wright Alevism ESTIMATED GFR 2019-06-20 20:58:00 Harsh, Raeann Amaral URINALYSIS SCREEN AND MICROSCOPY, WITH REFLEX TO CULTURE 201 04-14-17 20:54:00 Harsh, Raeann Jessie Amaral HCG QUALITATIVE, URINE SCREEN 2019-06-20 20:54:00 Harsh, Raeann Amaral HC COMPLETE BLD COUNT W/AUTO DIFF 2019-06-08 07:25:00 Mart High COMPREHENSIVE METABOLIC PANEL 2019-06-08 07:25:00 Christi High ESTIMATED GFR 2019-06-08 07:25:00 Mart High URINE DRUGS OF ABUSE SCREEN 2019-06-08 07:02:00 Marly High HCG QUALITATIVE, SERUM SCREEN 2019-06-08 07:02:00 Christi High THYROID STIMULATING HORMONE 2019-06-08 07:02:00 Marly High T4, FREE 2019-06-08 07:02:00 Mart High HC COMPLETE BLD COUNT W/AUTO DIFF 2019-05-27 14:45:00 Carlito Goode COMPREHENSIVE METABOLIC PANEL 2019-05-27 14:45:00 Rosales Goode T4, FREE 2019-05-27 14:45:00 Rosales Goode Or thodist THYROID STIMULATING HORMONE 2019-05-27 14:45:00 Rosales Goode CREATINE KINASE, TOTAL (CPK) 2019-05-27 14:45:00 Coreyzi, Deonif HKaylee Amaral HCG QUALITATIVE, SERUM SCREEN 2019-05-27 14:45:00 Rupa, Deonif HKaylee Daveyist ACETAMINOPHEN LEVEL 2019-05-27 14:45:00 Tirmizi, Aatif H. Tiffanieto n Alevism SALICYLATE LEVEL 2019-05-27 14:45:00 Tirjessica, Aatif HKaylee Leos M ethodist ESTIMATED GFR 2019-05-27 14:45:00 Rupa, Aatif H. Deric Me thodist ECG 12-LEAD 2019-05-27 14:40:52 Shreyas Alanis hodist ECG ED PRELIMINARY INTERPRETATION 2019-05-27 14:09:19 Carlito Goode donnie HKaylee Amaral HC COMPLETE BLD COUNT W/AUTO DIFF 2019-05-25 15:00:00 Luis Navas BASIC METABOLIC PANEL 2019-05-25 15:00:00 [facility] ESTIMATED GFR 2019-05-25 15:00:00 Aly Navas HC COMPLETE BLD COUNT W/AUTO DIFF 2019-05-24 15:08:00 Marcos Rincon COMPREHENSIVE METABOLIC PANEL 2019-05-24 15:08:00 Sole Rincon T4, FREE 2019-05-24 15:08:00 Sole Rincon ethodist THYROID STIMULATING HORMONE 2019-05-24 15:08:00 Sole Rincon HCG QUALITATIVE, SERUM SCREEN 2019-05-24 15:08:00 Sole Rincon ACETAMINOPHEN LEVEL 2019-05-24 15:08:00 Sole Rincon on Alevism SALICYLATE LEVEL 2019-05-24 15:08:00 Sole Rincon ESTIMATED GFR 2019-05-24 15:08:00 Sole Rincon ethodist URINE CULTURE 2019-05-24 14:24:00 Sole Rincon ethodist URINALYSIS SCREEN AND MICROSCOPY, WITH REFLEX TO CULTURE 201 04-13-21 14:24:00 Sole Rincon URINE DRUGS OF ABUSE SCREEN 2019-05-24 14:24:00 Sole Rincon HEMOGLOBIN A1C 2019-04-28 22:55:00 Atilio Corona LIPID PANEL 2019-04-28 04:00:00 Atilio Corona URINE CULTURE 2019-04-27 20:58:00 Brian Pond Meth odjames URINE DRUGS OF ABUSE SCREEN 2019-04-27 20:58:00 Brian Pond URINALYSIS SCREEN AND MICROSCOPY, WITH REFLEX TO CULTURE 201 04-12-24 20:58:00 Brian Pond ECG ED PRELIMINARY INTERPRETATION 2019-04-27 15:24:23 Rayne Pond THYROID STIMULATING HORMONE 2019-04-27 15:20:00 Brian Pond T4, FREE 2019-04-27 15:20:00 Brian Pond ACETAMINOPHEN LEVEL 2019-04-27 15:20:00 Biran Pond SALICYLATE LEVEL 2019-04-27 15:20:00 Brian Pond Met hodjames COMPREHENSIVE METABOLIC PANEL 2019-04-27 15:17:00 Brian Pond ALCOHOL LEVEL, BLOOD 2019-04-27 15:17:00 Brian Pond ESTIMATED GFR 2019-04-27 15:17:00 Brian Pond HC COMPLETE BLD COUNT W/AUTO DIFF 2019-04-27 15:17:00 Rayne Pond CREATINE KINASE, TOTAL (CPK) 2019-04-27 15:17:00 Brian Pond HCG QUALITATIVE, SERUM SCREEN 2019-04-27 15:17:00 Brian Pond ECG 12-LEAD 2019-04-27 14:51:09 Brian Pond US PELVIS WITH ENDOVAG WITH DOPPLER 2019-04-17 02:35:00 Boss, St uart Nilay [facility] URINALYSIS W/ MICROSCOPIC 2019-04-17 01:12:00 Boss, Delmer Nilay [facility] SCREEN, URINE 2019-04-17 01:12:00 Delmer Johnson [facility] STD PANEL - CT/GC RNA 2019-04-17 01:00:00 Delmer Johnson [facility] WET PREP 2019-04-17 01:00:00 Delmer Johnson [facility] COMPREHENSIVE METABOLIC PANEL 2019-04-16 23:19:00 Delmer Johnson [facility] LIPASE 2019-04-16 23:19:00 Delmer Johnson [facility] CBC W/PLT COUNT & AUTO DIFFERENTIAL 2019-04-16 23:19:00 St lindy Johnson [facility] LIPASE 2019-04-15 16:30:00 Yonny [facility] BASIC METABOLIC PANEL (7) 2019-04-15 16:30:00 Yonny Ad[facility] LACTIC ACID, VENOUS 2019-04-15 16:30:00 Yonny [facility] HEPATIC FUNCTION PANEL 2019-04-15 16:30:00 Katty Tovar [facility] BLOOD GAS, VENOUS 2019-04-15 16:30:00 Katty Tovar I [facility] CBC W/PLT COUNT & AUTO DIFFERENTIAL 2019-04-15 16:30:00 Yonny [facility] SCREEN, URINE 2019-04-15 16:02:00 Katty Tovar [facility] URINALYSIS W/ MICROSCOPIC 2019-04-15 16:02:00 Yonny [facility] Plan of Care Planned Activity Planned Date Details Comments Source Future Scheduled Test 2020-05-04 00:00:00 IMM Influenza Seas onal May to October (>/= 19 yrs) [code = IMM Influenza Seasonal May to October (>/= 19 yrs)] [facility] Future Scheduled Test 2020-05-04 00:00:00 INFLUENZA VACCINE [code = INFLUENZA VACCINE] [facility] Future Scheduled Test 2004-12-20 00:00:00 Screening for corby reyna neoplasm of cervix (procedure) [code = 520039723] [facility] Scheduled Test 2004-12-20 00:00:00 Screening for corby gnant neoplasm of cervix (procedure) [code = 451677032] Leos Swetha pierce Instructions Abdominal Pain - Adult KEVIN Fleming - Patients [facility] Encounters Start Date/Time End Date/Time Encounter Type Admission Type Attendi [facility] Care Department Encounter ID Source 2018-06-17 17:18:00 Inpatient [facility] [id number] [facility] 2018-04-29 17:27:00 Inpatient [facility] [id number] [facility] 2020-03-30 00:00:00 2020-03-30 00:00:00 Emergency JONATHAN LEUNG [facility] 064 [id number] [facility] 2020-03-27 00:00:00 2020-03-27 00:00:00 Emergency SPENCER BURROWS [facility] 064 [id number] [facility] 2020-03-25 08:21:00 2020-03-25 08:21:00 Emergency E [facility] SW [id number] [facility] 2020-03-17 20:51:00 2020-03-17 22:59:00 Emergency E FEDERICO MENDES [facility] [id number] [facility] 2020-02-28 14:46:00 2020-02-28 18:47:00 Departed Emergency Room 1 LOLY HILARIO [facility] [id number] [facility] 2020-02-20 09:17:00 2020-02-20 09:17:00 Emergency E MHSW MHSW [id number] [facility] 2020-01-20 15:14:01 2020-01-20 19:42:00 Emergency ER PATRICK ARAUJO [facility] Emergency [id number] MD Gee 2020-01-20 16:22:25 2020-01-20 16:57:31 Emergency EL ARSLAN ARAUJO MDA [facility] [id number] MD Gee 2020-01-17 12:30:00 2020-01-17 12:30:00 Emergency E MHFB MHFB [id number] [facility] 2020-01-12 13:49:00 2020-01-12 13:49:00 Emergency E MHFB MHFB [id number] [facility] 2020-01-12 00:00:00 2020-01-12 00:00:00 Emergency RAJAN HIGHGARRETT [place] [id number] [facility] 2020-01-10 18:24:00 2020-01-10 18:24:00 Outpatient E [facility] MED [id number] [facility] 2019-12-30 20:40:00 2019-12-30 22:06:00 Departed Emergency Room [facility] [id number] [facility] 2019-12-01 10:56:00 2019-12-01 13:27:00 Departed Emergency Room 1 ED WAGNER [facility] [id number] I [facility] 2019-11-30 15:08:00 2019-11-30 15:08:00 Emergency E MHBL MHBL [id number] [facility] 2019-09-22 12:14:00 2019-09-22 12:14:00 Emergency E MHSE MHSE [id number] [facility] 2019-09-14 14:36:00 2019-09-14 14:36:00 Emergency E MHBL MHBL [id number] [facility] 2019-09-09 00:00:00 2019-09-09 00:00:00 Emergency GEORGE JONES [facility] 06 [id number] [facility] 2019-08-12 21:23:00 2019-08-12 21:23:00 Emergency E MHFB MHFB [id number] [facility] 2019-08-07 00:00:00 2019-08-09 00:00:00 Inpatient SHAHRAM MCCLOUD [facility] [id number] [facility] 2019-08-04 10:42:00 2019-08-04 10:42:00 Emergency E MHBL MHBL [id number] [facility] 2019-06-20 00:00:00 2019-06-21 00:00:00 Emergency RAEANN TATUM [place] [id number] [facility] 2019-06-08 00:00:00 2019-06-08 00:00:00 Emergency ANILA TISHA [place] [id number] [facility] 2019-06-06 19:53:00 2019-06-06 19:53:00 Emergency E MHKM KM [id number] [facility] 2019-05-27 00:00:00 2019-05-29 00:00:00 Emergency [facility] 064 [id number] [facility] 2019-05-05 00:27:00 2019-05-05 00:27:00 Emergency E MHKM KM [id number] [facility] 2019-04-10 20:33:00 2019-04-10 20:33:00 Emergency E MHFB MHFB [id number] FB 2019-04-06 00:00:00 2019-04-06 00:00:00 Emergency OMAR BROWN B [facility] 064 [id number] [facility] 2019-02-16 00:56:00 2019-02-16 00:56:00 Emergency E [facility] SW [id number] [facility] 2019-01-06 11:53:00 2019-01-06 11:53:00 Emergency E [facility] [id number] [facility] 2018-10-21 11:07:00 2018-10-21 11:07:00 Emergency E [facility] [id number] [facility] 2018-07-22 00:00:00 2018-07-22 00:00:00 Outpatient [facility] [id number] [facility] 2018-07-17 00:00:00 2018-07-17 00:00:00 Outpatient [facility] [id number] [facility] 2018-07-09 02:29:00 2018-07-15 11:59:00 Inpatient 1 Ryan Oviedo Lawrence [facility] [id number] [facility] 2018-06-29 15:12:59 2018-06-29 15:12:59 Outpatient [facility] [id number] [facility] 2018-06-23 08:00:36 2018-06-23 08:00:36 Outpatient [facility] [id number] [facility] 2018-06-18 12:41:11 2018-06-18 12:41:11 Outpatient [facility] [id number] [facility] 2018-06-17 13:53:30 2018-06-17 13:53:30 Emergency [facility] [id number] [facility] 2018-06-17 10:57:15 2018-06-17 10:57:15 Emergency [facility] [id number] [facility] 2018-06-16 21:30:44 2018-06-16 21:30:44 Emergency [facility] [id number] [facility] 2018-05-19 00:00:00 2018-05-19 00:00:00 Outpatient [facility] [id number] [facility] 2018-05-15 00:00:00 2018-05-15 00:00:00 Outpatient [facility] [id number] [facility] 2018-05-05 11:09:57 2018-05-05 11:09:57 Outpatient [facility] [id number] [facility] 2018-04-26 19:41:32 2018-04-26 19:41:32 Emergency [facility] [id number] [facility] 2016-12-12 16:24:00 2016-12-12 16:24:00 Emergency E [facility] [id number] [facility] Results Test Description Test Time Test Comments Results Result Comments Source Urine culture 2020-03-31 17:47:24 Urine cultur e isolateMixed vane 10-4 col/ccMixed vane 10-4 col/cc Comment: Specimen InformationSpecimen Source: UrineSpecimen Site: Clean [facility] 2020-03-31 16:45:53 Test Item Ventricular rate (test code = 253) 116 Atrial rate (test code = 255) 116 KS interval (test code = 266) 132 QRSD interval (test code = 260) 70 QT interval (test code = 264) 330 QTC interval (test code = 265) 458 P axis 1 (test code = 267) 79 QRS axis 1 (test code = 268) 64 T wave axis (test code = 270) 39 EKG impression (test code = 273) Sinus tachycardia-Rig ht atrial enlargement-In automated comparison with ECG of 27-MAY-2019 14:40,-Vent. rate has increased BY 42 BPM-T wave inversion now evident in Inferior leads[facility] and microscopy, with reflex to culture 2020-03-30 12:44:34* Test Item Value Reference Range Interpretation Comments Specimen site (test code = 8211689) Clean catch Color, UA (test code = 5778-6) Yellow Appearance, UA (test code = 5767-9) Cloudy Specific gravity, UA (test code = 5811-5) 1.025 1.001-1.030 pH, UA (test code = 5803-2) 7.0 5.0-9.0 Protein, UA (test code = 85887-1) Negative Negative Glucose, UA (test code = 24763-3) Negative Negative Ketones, UA (test code = 2514-8) Negative Negative Bilirubin, UA (test code = 5770-3) Negative Negative Blood, UA (test code = 5794-3) Negative Negative Nitrite, UA (test code = 5802-4) Negative Negative Urobilinogen, UA (test code = 36272-8) <2.0 <2.0 E.U./dL Leukocyte esterase, UA (test code = 5799-2) Negative Negative Epithelial cells, UA (test code = 5787-7) >20 /HPF Round epithelial cells, UA (test code = 82120-5) <1 0- 5 /HPF WBC, UA (test code = 5821-4) 8 0- 4 /HPF H RBC, UA (test code = 75745-3) 1 0- 5 /HPF Bacteria, UA (test code = 21786-4) Few None seen Yeast, UA (test code = 50542-3) None seen Yeast with pseudohyphae, UA (test code = 65092-3) None seen Lab Interpretation (test code = 27057-6) Abnormal [facility] qualitative, urine [id number] 12:33:54* Test Item Value Reference Range Interpretation Comments hCG qualitative, urine (test code = 2106-3) Negative Sensitivity of HCG test: 25 mIU/ml [facility] Abdomen Pelvis W [id number] 12:05:31Hm Interface, Radiology Results 03/30/2020 12:08 PM CDTEXAMINATION: CT ABDOMEN PELVIS W CONTRASTCLINICAL HISTORY: 34 years old Female. Chronic abdominal pain, nausea, vomiting, diarrhea.TECHNIQUE: Multiple axial images of the abdomen and pelvis were obtained following intravenous administration of iodinated contrast. Oral contrast was not administered. Sagittal and coronal computerized reformatted images were also obtained. CT imaging was performed with iterative reconstruction techniques and/or automated exposure control to reduce radiation dose. COMPARISON: CT abdomen pelvis 01/12/2020, 06/20/2019IMPRESSION:LOWER CHEST :Visualized lower thorax:Lung bases: No significant pleural effusion. Lower medi astinum: Cardiac size is normal. No pericardial effusion. ABDOMEN:Upper abdomina l organs: Liver: Enhances normally without focal lesions. Smooth contour. Measur es 18.7 cm in craniocaudal dimension. Gallbladder: Nondistended, normal. Spleen: Normal.Pancreas: Normal.Adrenal Glands: Normal.Kidneys: Normal. No hydronephros is. No obstructing renal or ureteral calculi.Bowel and mesentery: Large and smal l bowel are normal in caliber without focal wall thickening or mesenteric fat st randing. Normal appendix. The bowel is otherwise normal.No free intraperitoneal gas or fluid. Vasculature: Abdominal aorta is of normal caliber. Celiac artery, superior and inferior mesenteric arteries, superior mesenteric and portal veins appear patent. Lymph nodes: No abdominal or retroperitoneal lymphadenopathy. P EDNA:Urinary bladder: Mildly fluid distended.Uterus appears normal. No adnexal region masses.Lymph nodes: No pelvic lymphadenopathy.MUSCULOSKELETAL: No suspici ous lytic or blastic osseous lesions. The superficial soft tissues are unremarka ble. Age appropriate degenerative changes of the spine.SUMMARY:1. Mildly fluid d istended urinary bladder, otherwise, no CT evidence of acute intra-abdominal pat hology. Specifically, no appendicitis, diverticulitis, bowel obstruction, perfor ation, ascites, fluid collection or hydronephrosis. [facility] [id number] [facility] [id number] 11:11:54Hm Interface, Radiology Results [facility] - 03/30/2020 11:15 AM CDTEXAMINATION: XR ABDOMEN ACUTE INC CHEST 1VCLINICAL HISTORY: Abd pain unspecifiedTECHNIQUE: Frontal chest and 3 views of the abdomen obtained.COMPARISON: Chest x-ray 05/04IMPRESSION:Frontal chest shows cardiac silhouette and pulmonary vasculatur e within normal limits. No lobar consolidation or pleural effusion identified.Up right view shows no free air the diaphragm and no air-fluid levels.Bowel loops s how no evidence of obstruction or ileus. Prominent fecal material within the asc ending colon may indicate constipation.[id number] Comprehensive metabolic [id number] 10:55:20* Test Item Value Reference Range Interpretation Comments Sodium (test code = 2951-2) 134 135- 148 mEq/L L Potassium (test code = 2823-3) 3.5 3.5- 5.0 mEq/L Chloride (test code = 5-0) 100 98- 112 mEq/L CO2 (test code = 2027-9) 25 24- 31 mEq/L Anion gap (test code = 39971-3) 9@ANIO 7- 15 mEq/L BUN (test code = 3094-0) 6 mg/dL 6-20 Creatinine (test code = 2160-0) 0.71 mg/dL 0.5-0.9 Glucose (test code = 2345-7) 77 mg/dL 65-99 Calcium (test code = 41470-3) 9.5 mg/dL 8.3-10.2 Protein (test code = 2885-2) 7.9 g/dL 6.3-8.3 Albumin (test code = 1751-7) 4.5 g/dL 3.5-5 A/G ratio (test code = 1759-0) 1.3 0.7-3.8 Alkaline phosphatase (test code = 6768-6) 51 U/L 35-104 AST (test code = 1920-8) 17 U/L 10-35 ALT (test code = 1742-6) 9 U/L 5-50 Total bilirubin (test code = 1974-2) 0.3 mg/dL 0.2-1.2 Lab Interpretation (test code = 56463-5) Abnormal [place] [facility], total (CPK)2020-03-30 10:55:20* Test Item Value Reference Range Interpretation Comments Creatine kinase (test code = 2157-6) 68 U/L 26-192 [place] MethodistLipase [id number] 10:55:20* Test Item Value Reference Range Interpretation Comments Lipase (test code = 3040-3) 20 U/L 13-60 [place] MethodistEstimated [id number] 10:55:20* Test Item Value Reference Range Interpretation Comments Estimated GFR (test code = 5488) >=90 mL/min/1.73 m2 Catergory Units InterpretationG1 >=90 Normal or highG2 60-89 Mildly wzygukqviJ3y 45-59 Mildly to moderately uwioyekuzW9a 30-44 Moderately to severely decreasedG4 15-29 Severely decreasedG5 <15 Kidney failureThe eGFR was calculated using the Chronic Kidney Disease Epidemiology Collaboration (CKD-EPI) equation. Interpretation is based on recommendations of the National Kidney Foundation-Kidney Disease Outcomes Quality Initiative (NKF-KDOQI) published in 2014. Deric AmaralB natriuretic [id number] 10:54:06* Test Item Value Reference Range Interpretation Comments BNP (test code = 77851-7) 14 pg/mL 0-100 Deric DaveyTprrdkvxjTqoyxnlh7524-01-03 10:53:45* Test Item Value Reference Range Interpretation Comments Troponin (test code = 22663-6) <0.006 0-0.04 In patients suspected of having a myocardial infarction, along with all other appropriate clinical measures and actions including ECG and other diagnostics as appropriate, measure Ultra TnI at 0 hrs and at 3 hrs.Myocardial infarction VERY LIKELYThe 0 hr TnI level is > 0.10 ng/mL Tyshawn cardial infarction LIKELYThe 0 hr TnI level is > 0.04 ng/mL and 3 hr level is increased or decreased by at least 0.020 ng/mL Myocardi al infarction VERY UNLIKELYBoth the 0 hr and 3 hr TnI levels <= 0.04 ng/mL(within normal limits) OR 0 hr is > 0.04 ng/mL and 3 hr is increased OR decreased by less than 0.020 ng/mL Deric AmaralProthrombin time with [id number] 10:44:39* Test Item Value Reference Range Interpretation Comments Prothrombin time (test code = 5902-2) 13.0 11.5- 14.5 sec INR (test code = 75826-6) 1.0 Th e International Normalized Ratio (INR) is a therapeutic monitoring tool for patients who are stable on oral anticoagulant therapy. An INR of 2.0-3.0 is suggested for deep vein thrombosis/pulmonary embolism. [place] [facility] [place] [id number] 10:41:03* Test Item Value Reference Range Interpretation Comments hCG qualitative, serum (test code = 2118-8) Negative Sensitivity of HCG test: 25 mIU/mL [facility] [facility] with platelet and bbaqrvnefhis7851-30-79 10:37:16* Test Item Value Reference Range Interpretation Comments WBC (test code = 11321-8) 4.2 4.5- 11.0 k/uL L RBC (test code = 39792-4) 3.96 m/uL 4.2-5.5 L HGB (test code = 718-7) 12.9 g/dL 12-16 HCT (test code = 4544-3) 37.9 % 37-47 MCV (test code = 787-2) 95.7 fL 82-100 MCH (test code = 785-6) 32.6 pg 27-34 MCHC (test code = 786-4) 34.0 g/dL 31-37 RDW - SD (test code = 21772-9) 42.2 fL 37-55 MPV (test code = 65942-7) 10.7 fL 6.9-11 Platelet count (test code = 80567-2) 263 K/uL 150-400 Nucleated RBC (test code = 18953-2) 0.00 /100 WBC Neutrophils (test code = 86567-9) 58.1 % 39-69 Lymphocytes (test code = 14671-6) 30.8 % 25-45 Monocytes (test code = 92115-8) 6.5 % 0-10 Eosinophils (test code = 06263-4) 3.4 % 0-5 Basophils (test code = 81043-3) 1.0 % 0-1 Immature granulocytes (test code = 79470-0) 0.2 % 0-1 Lab Interpretation (test code = 12119-8) [facility]normal [facility] Preliminary Interpretation - Not an [id number] 09:48:38* Test Item Value Reference Range Interpretation Comments RADHA (test code = RADHA) Corbin Leung MD 12:48 PMECG ED Preliminary Interpretation - Not an OrderPerformed by: Corbin Leung MDAuthorized by: Corbin Leung MD ECG reviewed by ED Physician in the a bsence of a senior business manager: yes Interpretation: Interpretation: abnormal Rate: ECG rate: 116 ECG rate assessment: tachycardic Rhythm: Rhythm: sinus tachycardia Ectopy: Ectopy: none QRS: QRS axis: Normal QRS intervals: NormalConduction: Conduction: normal ST segments: ST segments: Non- specificT waves: T waves: non-specific Comments: Sinus tachycardia, nonspecific ST-T changes Lab Interpretation (test code = 21754-0) Abnormal [place] MethodistURINALYSIS [id number] 17:52:00* Test Item Value Reference Range Interpretation Comments UA COLOR (test code = COLU) YELLOW YELLOW UA APPEARANCE (test code = APPU) CLEAR CLEAR UA GLUCOSE DIPSTICK (test code = DGLUU) NORMAL MG/DL NORMAL UA BILIRUBIN DIPSTICK (test code = BILU) NEGATIVE MG/DL NEGATIVE UA KETONE DIPSTICK (test code = KETU) NEGATIVE MG/DL NEGATIVE UA SPECIFIC GRAVITY (test code = SGU) 1.015 1.003-1.030 N UA BLOOD DIPSTICK (test code = KIRTI) NEGATIVE Miles/mm3 NEGATIVE UA PH DIPSTICK (test code = GABRIEL) 8.0 5.0-9.0 N UA PROTEIN DIPSTICK (test code = PROU) NEGATIVE MG/DL NEGATIVE UA UROBILINIOGEN DIPSTICK (test code = URO) NORMAL MG/DL NORMAL UA NITRITE DIPSTICK (test code = BLU) NEGATIVE NEGATIVE UA LEUKOCYTE ESTERASE DIPSTICK (test code = LEUU) NEGATIVE /mm3 NEG ATIVE UA CULTURE NEEDED? (test code = UACULT) NEGATIVE, NO CULTURE Criteria Culture Chk SOURCE OF URINE: CLEAN CATCHUR HCG [id number] 17:52:00* Test Item Value Reference Range Interpretation Comments UR HCG QUAL (test code = HCGQLU) NEGATIVE NEGATIVE SOURCE OF URINE: CLEAN CATCHDRUGS OF ABUSE SCREEN [id number] 17:52:00* Test Item Value Reference Range Interpretation Comments UR COCAINE (test code = COCAU) NEGATIVE NEGATIVE Cut off Value: 300 ng/mL UR CANNABINOIDS (THC) (test code = CANU) NEGATIVE NEGATIVE Cut off Value: 50 ng/mL UR AMPHETAMINE (test code = AMPHU) POSITIVE NEGATIVE [facility]: 1000 ng/mL UR BARBITURATE QUAL (test code = BARBQLU) NEGATIVE NEGATIVE Cut off Value: 200 ng/mL UR BENZODIAZEPINE (test code = BENZU) POSITIVE NEGATIVE Cut off Value: 200 ng/mL UR OPIATES QUAL (test code = OPIAQLU) NEGATIVE NEGATIVE Cut off Value: 300 ng/mL UR PHENCYCLIDINE (PCP) (test code = PHENCU) NEGATIVE NEGATIVE Cut off Value: 25 ng/mL SOURCE OF URINE: CLEAN CATCHURN [id number] 17:52:00* Test Item Value Reference Range Interpretation Comments URN AMPHETAMINE (test code = AMPHETURN) POSITIVE NEGATIVE A RESULTS CALLED TO ZACKERY ChamberlainREAD BACK & CONFIRMED? ADEEL [email or web address] 03/22/20 2989 RESULTS SENT FOR CONFIRMATION OF SCREEN RESULTSSEE OTHER SPECIMEN FOR CONFIRMATION RESULTS These results are to be used only for medical (ie,treatment) purposes. Unconfirmed screening results must notbe used for non-medical purposes (eg, employment testing)DETECTION CUT OFF: 500 ng/mLCut off Value: 1000 ng/mL SOURCE OF URINE: CLEAN CATCHURINALYSIS [id number] 17:47:00* Test Item Value Reference Range Interpretation Comments UA COLOR (test code = COLU) YELLOW YELLOW UA APPEARANCE (test code = APPU) CLEAR CLEAR UA GLUCOSE DIPSTICK (test code = DGLUU) NORMAL MG/DL NORMAL UA BILIRUBIN DIPSTICK (test code = BILU) NEGATIVE MG/DL NEGATIVE UA KETONE DIPSTICK (test code = KETU) NEGATIVE MG/DL NEGATIVE UA SPECIFIC GRAVITY (test code = SGU) 1.015 1.003-1.030 N UA BLOOD DIPSTICK (test code = KIRTI) NEGATIVE Miles/mm3 NEGATIVE UA PH DIPSTICK (test code = GABRIEL) 8.0 5.0-9.0 N UA PROTEIN DIPSTICK (test code = PROU) NEGATIVE MG/DL NEGATIVE UA UROBILINIOGEN DIPSTICK (test code = URO) NORMAL MG/DL NORMAL UA NITRITE DIPSTICK (test code = BLU) NEGATIVE NEGATIVE UA LEUKOCYTE ESTERASE DIPSTICK (test code = LEUU) NEGATIVE /mm3 NEG ATIVE UA CULTURE NEEDED? (test code = UACULT) NEGATIVE, NO CULTURE Criteria Culture Chk SOURCE OF URINE: CLEAN CATCHUR HCG [id number] 17:47:00* Test Item Value Reference Range Interpretation Comments UR HCG QUAL (test code = HCGQLU) NEGATIVE NEGATIVE SOURCE OF URINE: CLEAN CATCHDRUGS OF ABUSE SCREEN [id number] 17:47:00* Test Item Value Reference Range Interpretation Comments UR COCAINE (test code = COCAU) NEGATIVE NEGATIVE Cut off Value: 300 ng/mL UR CANNABINOIDS (THC) (test code = CANU) NEGATIVE NEGATIVE Cut off Value: 50 ng/mL UR AMPHETAMINE (test code = AMPHU) NEGATIVE UR BARBITURATE QUAL (test code = BARBQLU) NEGATIVE NEGATIVE Cut off Value: 200 ng/mL UR BENZODIAZEPINE (test code = BENZU) POSITIVE NEGATIVE Cut off Value: 200 ng/mL UR OPIATES QUAL (test code = OPIAQLU) NEGATIVE NEGATIVE Cut off Value: 300 ng/mL UR PHENCYCLIDINE (PCP) (test code = PHENCU) NEGATIVE NEGATIVE Cut off Value: 25 ng/mL SOURCE OF URINE: CLEAN CATCHURN [id number] 17:47:00* Test Item Value Reference Range Interpretation Comments URN AMPHETAMINE (test code = AMPHETURN) POSITIVE NEGATIVE A RESULTS CALLED TO ZACKERY ChamberlainREAD BACK & CONFIRMED? [employer].LAB.IR 03/22/20 1746 RESULTS SENT FOR CONFIRMATION OF SCREEN RESULTSSEE OTHER SPECIMEN FOR CONFIRMATION RESULTS These results are to be used only for medical (ie,treatment) purposes. Unconfirmed screening results must notbe used for non-medical purposes (eg, employment testing)DETECTION CUT OFF: 500 ng/mLCut off Value: 1000 ng/mL SOURCE OF URINE: CLEAN CATCHURN [id number] 17:46:00* Test Item Value Reference Range Interpretation Comments URN AMPHETAMINE (test code = AMPHETURN) POSITIVE NEGATIVE A RESULTS CALLED TO ZACKERY ChamberlainREAD BACK & CONFIRMED? [employer].LAB.IR 03/22/20 174 RESULTS SENT FOR CONFIRMATION OF SCREEN RESULTSSEE OTHER SPECIMEN FOR CONFIRMATION RESULTS These results are to be used only for medical (ie,treatment) purposes. Unconfirmed screening results must notbe used for non-medical purposes (eg, employment testing)DETECTION CUT OFF: 500 ng/mL SOURCE OF URINE: CLEAN CATCHRETICULOCYTE [id number] 13:34:00* Test Item Value Reference Range Interpretation Comments RETICULOCYTE COUNT (test code = RETICT) 1.4 % 0.5-1.5 N COMPREHENSIVE METABOLIC [id number] 13:20:00* Test Item Value Reference Range Interpretation Comments SODIUM (test code = NA) 140 MMOL/L 137-145 N POTASSIUM (test code = K) 3.7 MMOL/L 3.5-5.1 N CHLORIDE (test code = CL) 106 MMOL/L 98-107 N CARBON DIOXIDE (test code = CO2) 26 MMOL/L 22-30 N GLUCOSE (test code = GLU) 67 MG/DL 74-106 L BLOOD UREA NITROGEN (test code = BUN) 11 MG/DL 7-17 N GLOMERULAR FILTRATION RATE (test code = GFR) > 60 Reporting units: ml/min/1.73 m2 (Modified MDRD Formula)Reference Range: > or = 60 ml/min/1.73 m2 CREATININE (test code = CREAT) 0.70 MG/DL 0.52-1.04 N TOTAL PROTEIN (test code = PROT) 8.3 G/DL 6.3-8.2 H ALBUMIN (test code = ALB) 4.7 G/DL 3.5-5.0 N CALCIUM (test code = CA) 8.8 MG/DL 8.4-10.2 N BILIRUBIN TOTAL (test code = BILT) 0.3 MG/DL 0.2-1.3 N SGOT/AST (test code = AST) 22 UNITS/L 14-36 N SGPT/ALT (test code = ALT) 10 UNITS/L <35 ALKALINE PHOSPHATASE (test code = ALKP) 53 UNITS/L 38-126 N CREATINE KINASE (CK)2020-03-22 13:20:00* Test Item Value Reference Range Interpretation Comments CREATINE KINASE (CK) (test code = CK) 76 UNITS/L 30-135 N [id number] 13:20:00* Test Item Value Reference Range Interpretation Comments LIPASE (test code = LIP) 76 UNITS/L 23-300 N COMPREHENSIVE METABOLIC [id number] 13:19:00* Test Item Value Reference Range Interpretation Comments SODIUM (test code = NA) 140 MMOL/L 137-145 N POTASSIUM (test code = K) 3.7 MMOL/L 3.5-5.1 N CHLORIDE (test code = CL) 106 MMOL/L 98-107 N CARBON DIOXIDE (test code = CO2) MMOL/L 22-30 GLUCOSE (test code = GLU) MG/DL 74-106 BLOOD UREA NITROGEN (test code = BUN) MG/DL 7-17 GLOMERULAR FILTRATION RATE (test code = GFR) > 60 Reporting units: ml/min/1.73 m2 (Modified MDRD Formula)Reference Range: > or = 60 ml/min/1.73 m2 CREATININE (test code = CREAT) 0.70 MG/DL 0.52-1.04 N TOTAL PROTEIN (test code = PROT) G/DL 6.3-8.2 ALBUMIN (test code = ALB) 4.7 G/DL 3.5-5.0 N CALCIUM (test code = CA) MG/DL 8.7-9.7 BILIRUBIN TOTAL (test code = BILT) MG/DL 0.2-1.3 SGOT/AST (test code = AST) UNITS/L 15-37 SGPT/ALT (test code = ALT) UNITS/L <35 ALKALINE PHOSPHATASE (test code = ALKP) UNITS/L 38-126 CREATINE KINASE (CK)2020-03-22 13:19:00* Test Item Value Reference Range Interpretation Comments CREATINE KINASE (CK) (test code = CK) UNITS/L 30-135 [id number] 13:19:00* Test Item Value Reference Range Interpretation Comments LIPASE (test code = LIP) UNITS/L 23-300 COMPREHENSIVE METABOLIC [id number] 13:18:00* Test Item Value Reference Range Interpretation Comments SODIUM (test code = NA) 140 MMOL/L 137-145 N POTASSIUM (test code = K) 3.7 MMOL/L 3.5-5.1 N CHLORIDE (test code = CL) 106 MMOL/L 98-107 N CARBON DIOXIDE (test code = CO2) MMOL/L 22-30 GLUCOSE (test code = GLU) MG/DL 74-106 BLOOD UREA NITROGEN (test code = BUN) MG/DL 7-17 GLOMERULAR FILTRATION RATE (test code = GFR) CREATININE (test code = CREAT) MG/DL 0.52-1.04 TOTAL PROTEIN (test code = PROT) G/DL 6.3-8.2 ALBUMIN (test code = ALB) 4.7 G/DL 3.5-5.0 N CALCIUM (test code = CA) MG/DL 8.7-9.7 BILIRUBIN TOTAL (test code = BILT) MG/DL 0.2-1.3 SGOT/AST (test code = AST) UNITS/L 15-37 SGPT/ALT (test code = ALT) UNITS/L <35 ALKALINE PHOSPHATASE (test code = ALKP) UNITS/L 38-126 CREATINE KINASE (CK)2020-03-22 13:18:00* Test Item Value Reference Range Interpretation Comments CREATINE KINASE (CK) (test code = CK) UNITS/L 30-135 [id number] 13:18:00* Test Item Value Reference Range Interpretation Comments LIPASE (test code = LIP) UNITS/L 23-300 COMPREHENSIVE METABOLIC [id number] 13:17:00* Test Item Value Reference Range Interpretation Comments SODIUM (test code = NA) 140 MMOL/L 137-145 N POTASSIUM (test code = K) MMOL/L 3.5-5.1 CHLORIDE (test code = CL) 106 MMOL/L 98-107 N CARBON DIOXIDE (test code = CO2) MMOL/L 22-30 GLUCOSE (test code = GLU) MG/DL 74-106 BLOOD UREA NITROGEN (test code = BUN) MG/DL 7-17 GLOMERULAR FILTRATION RATE (test code = GFR) CREATININE (test code = CREAT) MG/DL 0.52-1.04 TOTAL PROTEIN (test code = PROT) G/DL 6.3-8.2 ALBUMIN (test code = ALB) 4.7 G/DL 3.5-5.0 N CALCIUM (test code = CA) MG/DL 8.7-9.7 BILIRUBIN TOTAL (test code = BILT) MG/DL 0.2-1.3 SGOT/AST (test code = AST) UNITS/L 15-37 SGPT/ALT (test code = ALT) UNITS/L <35 ALKALINE PHOSPHATASE (test code = ALKP) UNITS/L 38-126 CREATINE KINASE (CK)2020-03-22 13:17:00* Test Item Value Reference Range Interpretation Comments CREATINE KINASE (CK) (test code = CK) UNITS/L 30-135 [id number] 13:17:00* Test Item Value Reference Range Interpretation Comments LIPASE (test code = LIP) UNITS/L 23-300 CBC W/AUTO [id number] 13:14:00* Test Item Value Reference Range Interpretation Comments WHITE BLOOD CELL (test code = WBC) 3.9 K/MM3 3.8-9.8 N RED BLOOD CELL (test code = RBC) 3.89 M/MM3 3.58-4.97 N HEMOGLOBIN (test code = HGB) 12.6 G/DL 11.2-14.9 N HEMATOCRIT (test code = HCT) 38.6 % 33.2-43.5 N MEAN CELL VOLUME (test code = MCV) 99 fL 80.7-99.1 MEAN CELL HGB (test code = MCH) 32.4 pg 27.0-34.1 N MEAN CELL HGB CONCETRATION (test code = MCHC) 32.6 % 32.2-35. 7 N RED CELL DISTRIBUTION WIDTH (test code = RDW) 12.5 % 12.1-15. 2 N PLATELET COUNT (test code = PLT) 203 K/MM3 129-368 N MEAN PLATELET VOLUME (test code = MPV) 11.9 fl 7.4-10.4 H NEUTROPHIL % (test code = NT%) 45.4 % 43-75 N IMMATURE GRANULOCYTE % (test code = IG%) 0.0 % 0.0-2.0 N LYMPHOCYTE % (test code = LY%) 45.1 % 14-44 H MONOCYTE % (test code = MO%) 5.4 % 4-13 N EOSINOPHIL % (test code = EO%) 3.3 % 0-6 N BASOPHIL % (test code = BA%) 0.8 % 0-2 N NUCLEATED RBC % (test code = NRBC%) 0.0 % 0-1.0 N NEUTROPHIL # (test code = NT#) 1.77 K/mm3 2.0-7.6 L IMMATURE GRANULOCYTE # (test code = IG#) 0.00 x10 3/uL 0-0.03 N LYMPHOCYTE # (test code = LY#) 1.76 K/mm3 1.0-3.8 N MONOCYTE # (test code = MO#) 0.21 K/mm3 0.1-0.8 N EOSINOPHIL # (test code = EO#) 0.13 K/mm3 0.0-0.2 N BASOPHIL # (test code = BA#) 0.03 K/mm3 0.0-0.2 N NUCLEATED RBC # (test code = NRBC#) 0.00 K/mm3 0.0-0.1 N URINALYSIS [id number] 12:52:00* Test Item Value Reference Range Interpretation Comments UA COLOR (test code = COLU) YELLOW YELLOW UA APPEARANCE (test code = APPU) CLEAR CLEAR UA GLUCOSE DIPSTICK (test code = DGLUU) NORMAL MG/DL NORMAL UA BILIRUBIN DIPSTICK (test code = BILU) NEGATIVE MG/DL NEGATIVE UA KETONE DIPSTICK (test code = KETU) NEGATIVE MG/DL NEGATIVE UA SPECIFIC GRAVITY (test code = SGU) 1.015 1.003-1.030 N UA BLOOD DIPSTICK (test code = KIRTI) NEGATIVE Miles/mm3 NEGATIVE UA PH DIPSTICK (test code = GABRIEL) 8.0 5.0-9.0 N UA PROTEIN DIPSTICK (test code = PROU) NEGATIVE MG/DL NEGATIVE UA UROBILINIOGEN DIPSTICK (test code = URO) NORMAL MG/DL NORMAL UA NITRITE DIPSTICK (test code = BLU) NEGATIVE NEGATIVE UA LEUKOCYTE ESTERASE DIPSTICK (test code = LEUU) NEGATIVE /mm3 NEG ATIVE UA CULTURE NEEDED? (test code = UACULT) NEGATIVE, NO CULTURE Criteria Culture Chk SOURCE OF URINE: CLEAN CATCHUR HCG [id number] 12:52:00* Test Item Value Reference Range Interpretation Comments UR HCG QUAL (test code = HCGQLU) NEGATIVE NEGATIVE SOURCE OF URINE: CLEAN CATCHDRUGS OF ABUSE SCREEN [id number] 12:52:00* Test Item Value Reference Range Interpretation Comments UR COCAINE (test code = COCAU) NEGATIVE NEGATIVE Cut off Value: 300 ng/mL UR CANNABINOIDS (THC) (test code = CANU) NEGATIVE NEGATIVE Cut off Value: 50 ng/mL UR AMPHETAMINE (test code = AMPHU) NEGATIVE UR BARBITURATE QUAL (test code = BARBQLU) NEGATIVE NEGATIVE Cut off Value: 200 ng/mL UR BENZODIAZEPINE (test code = BENZU) POSITIVE NEGATIVE Cut off Value: 200 ng/mL UR OPIATES QUAL (test code = OPIAQLU) NEGATIVE NEGATIVE Cut off Value: 300 ng/mL UR PHENCYCLIDINE (PCP) (test code = PHENCU) NEGATIVE NEGATIVE Cut off Value: 25 ng/mL SOURCE OF URINE: CLEAN CATCHURINALYSIS [id number] 12:37:00* Test Item Value Reference Range Interpretation Comments UA COLOR (test code = COLU) YELLOW YELLOW UA APPEARANCE (test code = APPU) CLEAR CLEAR UA GLUCOSE DIPSTICK (test code = DGLUU) NORMAL MG/DL NORMAL UA BILIRUBIN DIPSTICK (test code = BILU) NEGATIVE MG/DL NEGATIVE UA KETONE DIPSTICK (test code = KETU) NEGATIVE MG/DL NEGATIVE UA SPECIFIC GRAVITY (test code = SGU) 1.015 1.003-1.030 N UA BLOOD DIPSTICK (test code = KIRTI) NEGATIVE Miles/mm3 NEGATIVE UA PH DIPSTICK (test code = GABRIEL) 8.0 5.0-9.0 N UA PROTEIN DIPSTICK (test code = PROU) NEGATIVE MG/DL NEGATIVE UA UROBILINIOGEN DIPSTICK (test code = URO) NORMAL MG/DL NORMAL UA NITRITE DIPSTICK (test code = BLU) NEGATIVE NEGATIVE UA LEUKOCYTE ESTERASE DIPSTICK (test code = LEUU) NEGATIVE /mm3 NEG ATIVE UA CULTURE NEEDED? (test code = UACULT) NEGATIVE, NO CULTURE Criteria Culture Chk SOURCE OF URINE: CLEAN CATCHUR HCG [id number] 12:37:00* Test Item Value Reference Range Interpretation Comments UR HCG QUAL (test code = HCGQLU) NEGATIVE NEGATIVE SOURCE OF URINE: CLEAN CATCHDRUGS OF ABUSE SCREEN [id number] 12:37:00* Test Item Value Reference Range Interpretation Comments UR COCAINE (test code = COCAU) NEGATIVE UR CANNABINOIDS (THC) (test code = CANU) NEGATIVE UR AMPHETAMINE (test code = AMPHU) NEGATIVE UR BARBITURATE QUAL (test code = BARBQLU) NEGATIVE NEGATIVE Cut off Value: 200 ng/mL UR BENZODIAZEPINE (test code = BENZU) NEGATIVE UR OPIATES QUAL (test code = OPIAQLU) NEGATIVE UR PHENCYCLIDINE (PCP) (test code = PHENCU) NEGATIVE SOURCE OF URINE: CLEAN CATCHURINALYSIS [id number] 12:28:00* Test Item Value Reference Range Interpretation Comments UA COLOR (test code = COLU) YELLOW YELLOW UA APPEARANCE (test code = APPU) CLEAR CLEAR UA GLUCOSE DIPSTICK (test code = DGLUU) NORMAL MG/DL NORMAL UA BILIRUBIN DIPSTICK (test code = BILU) NEGATIVE MG/DL NEGATIVE UA KETONE DIPSTICK (test code = KETU) NEGATIVE MG/DL NEGATIVE UA SPECIFIC GRAVITY (test code = SGU) 1.015 1.003-1.030 N UA BLOOD DIPSTICK (test code = KIRTI) NEGATIVE Miles/mm3 NEGATIVE UA PH DIPSTICK (test code = GABRIEL) 8.0 5.0-9.0 N UA PROTEIN DIPSTICK (test code = PROU) NEGATIVE MG/DL NEGATIVE UA UROBILINIOGEN DIPSTICK (test code = URO) NORMAL MG/DL NORMAL UA NITRITE DIPSTICK (test code = BLU) NEGATIVE NEGATIVE UA LEUKOCYTE ESTERASE DIPSTICK (test code = LEUU) NEGATIVE /mm3 NEG ATIVE UA CULTURE NEEDED? (test code = UACULT) NEGATIVE, NO CULTURE Criteria Culture Chk SOURCE OF URINE: CLEAN CATCHUR HCG [id number] 12:28:00* Test Item Value Reference Range Interpretation Comments UR HCG QUAL (test code = HCGQLU) NEGATIVE NEGATIVE SOURCE OF URINE: CLEAN CATCHDRUGS OF ABUSE SCREEN [id number] 12:28:00* Test Item Value Reference Range Interpretation Comments UR COCAINE (test code = COCAU) NEGATIVE UR CANNABINOIDS (THC) (test code = CANU) NEGATIVE UR AMPHETAMINE (test code = AMPHU) NEGATIVE UR BARBITURATE QUAL (test code = BARBQLU) NEGATIVE UR BENZODIAZEPINE (test code = BENZU) NEGATIVE UR OPIATES QUAL (test code = OPIAQLU) NEGATIVE UR PHENCYCLIDINE (PCP) (test code = PHENCU) NEGATIVE SOURCE OF URINE: CLEAN CATCHURINALYSIS [id number] 12:25:00* Test Item Value Reference Range Interpretation Comments UA COLOR (test code = COLU) YELLOW YELLOW UA APPEARANCE (test code = APPU) CLEAR CLEAR UA GLUCOSE DIPSTICK (test code = DGLUU) NORMAL MG/DL NORMAL UA BILIRUBIN DIPSTICK (test code = BILU) NEGATIVE MG/DL NEGATIVE UA KETONE DIPSTICK (test code = KETU) NEGATIVE MG/DL NEGATIVE UA SPECIFIC GRAVITY (test code = SGU) 1.015 1.003-1.030 N UA BLOOD DIPSTICK (test code = KIRTI) NEGATIVE Miles/mm3 NEGATIVE UA PH DIPSTICK (test code = GABRIEL) 8.0 5.0-9.0 N UA PROTEIN DIPSTICK (test code = PROU) NEGATIVE MG/DL NEGATIVE UA UROBILINIOGEN DIPSTICK (test code = URO) NORMAL MG/DL NORMAL UA NITRITE DIPSTICK (test code = BLU) NEGATIVE NEGATIVE UA LEUKOCYTE ESTERASE DIPSTICK (test code = LEUU) NEGATIVE /mm3 NEG ATIVE UA CULTURE NEEDED? (test code = UACULT) Criteria Culture Chk SOURCE OF URINE: CLEAN CATCHUR HCG [id number] 12:25:00* Test Item Value Reference Range Interpretation Comments UR HCG QUAL (test code = HCGQLU) NEGATIVE SOURCE OF URINE: CLEAN CATCHDRUGS OF ABUSE SCREEN [id number] 12:25:00* Test Item Value Reference Range Interpretation Comments UR COCAINE (test code = COCAU) NEGATIVE UR CANNABINOIDS (THC) (test code = CANU) NEGATIVE UR AMPHETAMINE (test code = AMPHU) NEGATIVE UR BARBITURATE QUAL (test code = BARBQLU) NEGATIVE UR BENZODIAZEPINE (test code = BENZU) NEGATIVE UR OPIATES QUAL (test code = OPIAQLU) NEGATIVE UR PHENCYCLIDINE (PCP) (test code = PHENCU) NEGATIVE SOURCE OF URINE: CLEAN CATCHRETIC COUNT WW2020-03-17 22:28:00* Test Item Value Reference Range Interpretation Comments RET% (test code = RET) 0.93 % 0.26-1.60 RET_# (test code = RET#) 0.03 X10\\S\\6/uL 0.01-0.07 HCT (test code = HCT) 30.8 % 35.0-44.0 L RBC (test code = RBC) 3.25 10\\S\\6/uL 4.30-5.70 L RET_COR (test code = RETC) 0.70 % 0.26-1.60 CBC (INCLUDES AUTOMATED DIFFERENTIAL)*[id number] 22:24:00* Test Item Value Reference Range Interpretation Comments WBC (test code = WBC) 3.9 10\\S\\3/uL 4.5-11.0 L RBC (test code = RBC) 3.22 10\\S\\6/uL 4.30-5.70 L HGB (test code = HBG) 10.4 g/dL 12.0-15.5 L HCT (test code = HCT) 30.5 % 35.0-44.0 L MCV (test code = MCV) 94.7 fL 81.0-99.0 MCH (test code = MCH) 32.3 pg 27.0-31.0 H MCHC (test code = MCHC) 34.1 g/dL 32.0-36.0 RDW (test code = RDW) 12.1 % 11.5-14.5 PLT (test code = PLT) 194 10\\S\\3/uL 130-400 MPV (test code = MPV) 11.1 fL 9.4-12.4 NEUTROP # (test code = NE#) 1.4 10\\S\\3/uL 1.6-8.0 L LYMPH # (test code = LY#) 2.0 10\\S\\3/uL 1.1-3.5 MONOCYTE # (test code = MO#) 0.4 10\\S\\3/uL 0.0-1.1 EOSINOPH # (test code = EO#) 0.1 10\\S\\3/uL 0.0-0.7 BASOPHIL # (test code = BA#) 0.0 10\\S\\3/uL 0.0-0.3 IG # (test code = IG#) 0.01 10\\S\\3/uL 0.00-0.06 NRBC # (test code = NRBC#) 0.00 10\\S\\3/uL 0.00-0.01 NEUTROPH % (test code = NE%) 35.4 % 35.0-73.0 LYMPH % (test code = LY%) 50.3 % 20.0-55.0 MONO % (test code = MO%) 9.8 % 2.5-10.0 EOSINOPH % (test code = EO%) 3.4 % 0.0-5.0 BASOPHIL % (test code = BA%) 0.8 % 0.0-2.0 IG % (test code = IG%) 0.3 % 0.0-0.8 NRBC% (test code = NRBC%) 0.0 % 0.0-0.2 MANDIFF (test code = WMDIFF) NO NO RBC MORPH (test code = WRBCMOR) NORMAL AMYLASE AND LIPASE 2020-03-17 22:20:00* Test Item Value Reference Range Interpretation Comments AMYLASE (test code = 10A) 37 U/L 28-100 LIPASE (test code = 60A) 85 IU/L 73-393 COMPREHENSIVE METABOLIC BEY *WW*2020-03-17 22:20:00* Test Item Value Reference Range Interpretation Comments GLUCOSE (test code = 06D) 78 mg/dL 75-100 SODIUM (test code = 01A) 141 mmol/L 136-145 POTASSIUM (test code = 01B) 3.8 mmol/L 3.6-5.1 CHLORIDE (test code = 04A) 109 mmol/L 98-107 H CO2 (test code = 02A) 26 mmol/L 22-32 ANION GAP (test code = ANG) 9.8 mmol/L BUN (test code = 05D) 15 mg/dL 7-18 CREATININE (test code = 03E) 0.7 mg/dL 0.4-1.1 GFR (test code = GFR) 110 mL/min/1.73m\\S\\2 >=90 GFR (test code = GFRAA) 127 mL/min/1.73m\\S\\2 >=90 EGFR (test code = EGFR) eGFR BY CKD-EPI CALCUL ATION IS NOT RECOMMENDED FOR PATIENTS UNDER 18 YEARS OF AGE. BUN/CREA (test code = BCR) 21 12-20 H CALCIUM (test code = 09D) 8.2 mg/dL 8.3-9.5 L BILI TOTAL (test code = 11A) 0.3 mg/dL 0.2-1.0 PROTEIN (test code = 07D) 7.3 g/dL 6.4-8.2 ALBUMIN (test code = 08D) 3.8 g/dL 3.5-4.8 GLOBULIN (test code = GLB) 3.5 g/dL 1.5-3.8 ALB/GLOB (test code = AGRR) 1.1 1.0-2.6 ALK PHOS (test code = 35A) 47 IU/L 42-121 AST (test code = 30A) 19 IU/L <=42 ALT (test code = 31A) 16 IU/L <=78 DRUGS OF ABUSE 2020-03-17 22:16:00* Test Item Value Reference Range Interpretation Comments DRUG SCRN (test code = HDOA) URINE DRUG SCREEN This is an unconfirmed screening result and should not be used for non-medical purposes CANNABINOD (test code = 88C) POSITIVE NEGATIVE A AMPHETAMINE (test code = 84A) POSITIVE NEGATIVE A BENZODIAZP (test code = 86A) POSITIVE NEGATIVE A BARBITURAT (test code = 85A) Negative NEGATIVE OPIATES (test code = 92B) Negative NEGATIVE COCAINE (test code = 87A) Negative NEGATIVE PHENCYCLID (test code = 66A) Negative NEGATIVE METHADONE (test code = 64A) Negative NEGATIVE DOAH (test code = DOAH.) URI NE DRUG SCREEN Cut-off values are as follows: Cannabinoids 50 ng/mL Cocaine 300 ng/mL Amphetamines 1000 ng/mL Phencyclidine 25 ng/mL Benzodiazepines 200 ng.mL Methadone 300 ng/mL Barbiturates 200 ng/mL Opiates 2000 ng/mL URINE MONOCLONAL 2020-03-17 22:07:00* Test Item Value Reference Range Interpretation Comments PREG UR (test code = PGU) NEGATIVE NEGATIVE URINALYSIS 2020-03-17 22:05:00* Test Item Value Reference Range Interpretation Comments COLOR (test code = COLU) YELLOW YELLOW CLARITY (test code = CLA) CLEAR CLEAR GLUCOSE UR (test code = UA GLUCOSE) NEGATIVE NEGATIVE BILI UR (test code = BILE) 1+ NEGATIVE A KETONES UR (test code = ANAY) TRACE NEGATIVE A SP GRAVITY (test code = SPGR) >=1.030 1.005-1.030 PH UR (test code = PH) 6.5 4.5-8.0 PROTEIN UR (test code = PU) NEGATIVE NEGATIVE UROBIL UR (test code = UROQ) 1.0 EU/dL 0.2-1.0 NITRITE UR (test code = NITRITE) NEGATIVE NEGATIVE BLOOD UR (test code = UA BLOOD) NEGATIVE NEGATIVE LEUK ES UR (test code = LEUK) NEGATIVE NEGATIVE AUAM (test code = WAUAM) NO NO hCG, serum, [id number] 14:06:00* Test Item Value Reference Range Interpretation Comments Preg Test, Serum (test code = 2110-5) Negative [facility], [id number] 14:06:00* Test Item Value Reference Range Interpretation Comments TEST SERUM (BEAKER) (test code = 584) Negative Comprehensive metabolic [id number] 14:03:00* Test Item Value Reference Range Interpretation Comments Protein, Total (test code = 2885-2) 8.4 6.0- 8.5 gm/dL Specimen slightly hemolyzed Albumin (test code = 41698-3) 4.7 g/dL 3.5-5 Specimen slightly hemolyzed Alkaline Phosphatase (test code = 6768-6) 43 U/L 30-115 Total Bilirubin (test code = 1975-2) 0.3 mg/dL 0.1-1.2 Specimen slightly hemolyzed Sodium (test code = 2951-2) 139 meq/L 135-148 Potassium (test code = 2823-3) 3.8 meq/L 3.6-5.5 Specimen slightly hemolyzed Chloride (test code = 2075-0) 107 meq/L 98-106 H CO2 (test code = 8-9) 18 meq/L 20-29 L BUN (test code = 3094-0) 13 mg/dL 10-26 Creatinine (test code = 2160-0) 0.77 mg/dL 0.5-1.2 Specimen slightly hemolyzed Glucose (test code = 2345-7) 69 mg/dL 70-110 L Calcium (test code = 54170-0) 9.3 mg/dL 8.5-10.5 AST (test code = 1920-8) 20 U/L 5-40 Spe cimen slightly hemolyzed ALT (test code = 1742-6) 8 U/L 5-50 Spe cimen slightly hemolyzed EGFR (test code = 78548-9) 103 mL/min/1.73 sq m ESTIMATED GFR IS NOT ACCURATE CREATININE CLEARANCE IN PREDICTING GLOMERULAR FILTRATION RATE. ESTIMATED GFR IS NOT APPLICABLE FOR DIALYSIS PATIENTS. RADHA (test code = RADHA) Fleet Manager/Dispatch ID - [id number] Lab Interpretation (test code = 48778-5) Abnormal [facility] [id number] 14:03:00* Test Item Value Reference Range Interpretation Comments TOTAL PROTEIN (BEAKER) (test code = 770) 8.4 gm/dL 6.0-8.5 Specimen slightly hemolyzed ALBUMIN (BEAKER) (test code = 1145) 4.7 g/dL 3.5-5.0 Specimen slightly hemolyzed ALKALINE PHOSPHATASE (BEAKER) (test code = 346) 43 U/L 30-115 BILIRUBIN TOTAL (BEAKER) (test code = 377) 0.3 mg/dL 0.1-1.2 Specimen slightly hemolyzed SODIUM (BEAKER) (test code = 381) 139 meq/L 135-148 POTASSIUM (BEAKER) (test code = 379) 3.8 meq/L 3.6-5.5 Specimen slightly hemolyzed CHLORIDE (BEAKER) (test code = 382) 107 meq/L 98-106 H CO2 (BEAKER) (test code = 355) 18 meq/L 20-29 L BLOOD UREA NITROGEN (BEAKER) (test code = 354) 13 mg/dL 10-26 CREATININE (BEAKER) (test code = 358) 0.77 mg/dL 0.50-1.20 Specimen slightly hemolyzed GLUCOSE RANDOM (BEAKER) (test code = 652) 69 mg/dL 70-110 L CALCIUM (BEAKER) (test code = 697) 9.3 mg/dL 8.5-10.5 AST (SGOT) (BEAKER) (test code = 353) 20 U/L 5-40 Specimen slightly hemolyzed ALT (SGPT) (BEAKER) (test code = 347) 8 U/L 5-50 Specimen slightly hemolyzed EGFR (BEAKER) (test code = 1092) 103 mL/min/1.73 sq m ESTIMATED GFR IS NOT ACCURATE CREATININE CLEARANCE IN PREDICTING GLOMERULAR FILTRATION RATE. ESTIMATED GFR IS NOT APPLICABLE FOR DIALYSIS PATIENTS. Fleet Manager/Dispatch ID - [id number] 14:02:00* Test Item Value Reference Range Interpretation Comments Lipase (test code = 3040-3) 18 U/L 6-51 RADHA (test code = RADHA) Fleet Manager/Dispatch ID - [id number] Lab Interpretation (test code = 86546-7) [facility] 14:02:00* Test Item Value Reference Range Interpretation Comments LIPASE (BEAKER) (test code = 749) 18 U/L 6-51 Fleet Manager/Dispatch ID - [id number] with platelet count + automated [id number] 13:45:00 * Test Item Value Reference Range Interpretation Comments WBC (test code = 6690-2) 3.1 4.0- 10.0 K/L L RBC (test code = 789-8) 4.03 4.00- 5.00 M/L MCHC (test code = 786-4) 33.3 32.0- 36.0 GM/DL Hematocrit (test code = 4544-3) 38.7 % 36-46 MCV (test code = 787-2) 96.0 fL 82-99 MCH (test code = 785-6) 32.0 pg 27-33 RDW (test code = 788-0) 12.2 % 12-15 Platelets (test code = 777-3) 287 150- 430 K/CU MM MPV (test code = 75999-2) 10.5 fL 6-11.5 nRBC (test code = 413) 0 0- 0 /100 WBC % Neutros (test code = 429) 43 % % Lymphs (test code = 430) 47 % % Monos (test code = 431) 6 % % Eos (test code = 432) 4 % % Baso (test code = 437) 1 % # Neutros (test code = 670) 1.34 1.80- 8.00 K/L L # Lymphs (test code = 414) 1.45 1.48- 4.50 K/L L # Monos (test code = 415) 0.18 0.00- 1.30 K/L # Eos (test code = 416) 0.12 0.00- 0.50 K/L # Baso (test code = 417) 0.03 0.00- 0.20 K/L Immature Granulocytes-Relative (test code = 2801) 0 % 0-0 Lab Interpretation (test code = 45353-2) Abnormal [facility] & AUTO [id number] 13:45:00* Test Item Value Reference Range Interpretation Comments WHITE BLOOD CELL COUNT (BEAKER) (test code = 775) 3.1 K/ L 4.0- 10.0 L RED BLOOD CELL COUNT (BEAKER) (test code = 761) 4.03 M/ L 4.00-5 .00 HEMOGLOBIN (BEAKER) (test code = 410) 12.9 GM/DL 12.0-15.5 HEMATOCRIT (BEAKER) (test code = 411) 38.7 % 36.0-46.0 MEAN CORPUSCULAR VOLUME (BEAKER) (test code = 753) 96.0 fL 82. 0-99.0 MEAN CORPUSCULAR HEMOGLOBIN (BEAKER) (test code = 751) 32.0 pg 27.0-33.0 MEAN CORPUSCULAR HEMOGLOBIN CONC (BEAKER) (test code = 752) 33.3 GM/DL 32.0-36.0 RED CELL DISTRIBUTION WIDTH (BEAKER) (test code = 412) 12.2 % 12.0-15.0 PLATELET COUNT (BEAKER) (test code = 756) 287 K/CU MM 150-430 MEAN PLATELET VOLUME (BEAKER) (test code = 754) 10.5 fL 6.0-11 .5 NUCLEATED RED BLOOD CELLS [...] ABSOLUTE COUNT (BEAKER) (test code = 670) 1.34 K/ L 1.80-8.00 L LYMPHOCYTES ABSOLUTE COUNT (BEAKER) (test code = 414) 1.45 K/ L 1.48-4.50 L MONOCYTES ABSOLUTE COUNT (BEAKER) (test code = 415) 0.18 K/ L 0. 00-1.30 EOSINOPHILS ABSOLUTE COUNT (BEAKER) (test code = 416) 0.12 K/ L 0.00-0.50 BASOPHILS ABSOLUTE COUNT (BEAKER) (test code = 417) 0.03 K/ L 0. 00-0.20 IMMATURE GRANULOCYTES-RELATIVE PERCENT (BEAKER) (test code = 2801) 0 % 0-0 Urinalysis w/[id number] 13:13:00* Test Item Value Reference Range Interpretation Comments Color, UA (test code = 5778-6) Yellow Clarity, UA (test code = 5767-9) Clear Specific [place], UA (test code = 5811-5) >=1.030 1.001-1.035 pH, UA (test code = 5803-2) 5.5 5.0-8.0 Protein, UA (test code = 85312-4) Negative Negative Glucose, UA (test code = 365) Negative Negative Ketones, UA (test code = 2514-8) Negative Negative Bilirubin, UA (test code = 54848-4) Negative Negative Blood, UA (test code = 38546-9) Negative Negative Nitrite, UA (test code = 5802-4) Negative Negative Leukocytes, UA (test code = 5799-2) Negative Negative Urobilinogen, UA (test code = 62824-5) 0.2 mg/dL 0.2-1 Bacteria, UA (test code = 38337-6) Few RBC, UA (test code = 799-7) None Seen /HPF WBC, UA (test code = 63999-1) <5 /HPF SQUAMOUS EPITHELIAL (test code = 24482-7) 10-20 /HPF Specimen Source (test code = 2795) [facility]/ [id number] 13:13:00* Test Item Value Reference Range Interpretation Comments [...] 10-20 /HPF SOURCE(BEAKER) (test code = 2795) CT ABDOMEN/PELVIS [id number] 17:53:00 [place] [address] Patient Name: KENNETH PLATT MR #: [id number] : 1985 Age/Sex: 34/F Req #: [id number] Adm Physician: Ordered by: LOLY HILARIO MD Report #: [id number] Location: ED Room/Bed: Procedure: [id number] CT/CT ABDOMEN/ PELVIS WO Exam Date: 02/28/20 Exam Time: 1700 REPORT STATUS: Signed EXAM: CT Abdomen and Pelvis WITHOUT contrast INDICATION: Diffuse abdominal pain. COMPARISO N: CT abdomen/pelvis on 12/01/2019. TECHNIQUE: Abdomen and pelvis were scanned utilizing a multidetector helical scanner from the lung base to the pubic symp hysis without administration of IV contrast. Absence of intravenous contrast d ecreases sensitivity for detection of focal lesions and vascular pathology. Co mike and sagittal reformations were obtained. Routine protocol was performed. IV CONTRAST: None ORAL CONTRAST: None COMPLICAT IONS: None RADIATION DOSE: Total DLP: 652.30 mGy*cm Estimated effective dose: (DLP x 0.015 x size factor) mSv CTDIvol has been reviewe d. It is below the limits set by the Radiation Protocol Committee (RPC). Dose modulation, iterative reconstruction, and/or weight based adjustment of the mA/kV was utilized to reduce the radiation dose to as low as reasonably a chievable. FINDINGS: LINES and TUBES: None. LOWER THORAX: HEPATOBILIARY: No focal hepatic lesions. No biliary ductal dilation. GALLBLADDER: No radio-opaque stones or sludge. No wall thickening. SPL EEN: No splenomegaly. PANCREAS: No focal masses or ductal dilatation. ADRENALS: No adrenal nodules KIDNEYS/URETERS: No hydronephrosis. No cys tic or solid mass lesions. No stones. GI TRACT: There is mild thickening of the posterior gastric wall (series 2 image 14). No abnormal distention, wa ll thickening of the small and large bowel, or evidence of bowel obstruction. The appendix is not identified in isolation, however, there are no secondary signs of appendicitis. PELVIC ORGANS/BLADDER: Unremarkable. LYMPH NODE S: No lymphadenopathy. VESSELS: Unremarkable. PERITONEUM / RETROPERITO NEUM: No free air or fluid. BONES: Unremarkable. SOFT TISSUES: Unremar kable. IMPRESSION: Mild thickening of the posterior gastric wall (ser ies 2 image 14) which may be due to underdistention or mild gastritis. S igned by: Radha Amaya MD on 02/28/2020 6:03 PM Dictated By: RADHA CRUZ MD 02 Transcribed By: MALLIKA on 02/28/201802 COPY TO: LOLY HILARIO MD URINALYSIS [id number] 13:11:00* Test Item Value Reference Range Interpretation Comments UA COLOR (test code = COLU) YELLOW YELLOW UA APPEARANCE (test code = APPU) CLEAR CLEAR UA GLUCOSE DIPSTICK (test code = DGLUU) NORMAL MG/DL NORMAL UA BILIRUBIN DIPSTICK (test code = BILU) NEGATIVE MG/DL NEGATIVE UA KETONE DIPSTICK (test code = KETU) NEGATIVE MG/DL NEGATIVE UA SPECIFIC GRAVITY (test code = SGU) 1.025 1.003-1.030 N UA BLOOD DIPSTICK (test code = KIRTI) NEGATIVE Miles/mm3 NEGATIVE UA PH DIPSTICK (test code = GABRIEL) 6.0 5.0-9.0 N UA PROTEIN DIPSTICK (test code = PROU) NEGATIVE MG/DL NEGATIVE UA UROBILINIOGEN DIPSTICK (test code = URO) NORMAL MG/DL NORMAL UA NITRITE DIPSTICK (test code = BLU) NEGATIVE NEGATIVE UA LEUKOCYTE ESTERASE DIPSTICK (test code = LEUU) NEGATIVE /mm3 NEG ATIVE UA CULTURE NEEDED? (test code = UACULT) NEGATIVE, NO CULTURE Criteria Culture Chk SOURCE OF URINE: CLEAN CATCHUR HCG [id number] 13:11:00* Test Item Value Reference Range Interpretation Comments UR HCG QUAL (test code = HCGQLU) NEGATIVE NEGATIVE SOURCE OF URINE: CLEAN CATCHURINALYSIS [id number] 13:07:00* Test Item Value Reference Range Interpretation Comments UA COLOR (test code = COLU) YELLOW YELLOW UA APPEARANCE (test code = APPU) CLEAR CLEAR UA GLUCOSE DIPSTICK (test code = DGLUU) NORMAL MG/DL NORMAL UA BILIRUBIN DIPSTICK (test code = BILU) NEGATIVE MG/DL NEGATIVE UA KETONE DIPSTICK (test code = KETU) NEGATIVE MG/DL NEGATIVE UA SPECIFIC GRAVITY (test code = SGU) 1.025 1.003-1.030 N UA BLOOD DIPSTICK (test code = KIRTI) NEGATIVE Miles/mm3 NEGATIVE UA PH DIPSTICK (test code = GABRIEL) 6.0 5.0-9.0 N UA PROTEIN DIPSTICK (test code = PROU) NEGATIVE MG/DL NEGATIVE UA UROBILINIOGEN DIPSTICK (test code = URO) NORMAL MG/DL NORMAL UA NITRITE DIPSTICK (test code = BLU) NEGATIVE NEGATIVE UA LEUKOCYTE ESTERASE DIPSTICK (test code = LEUU) NEGATIVE /mm3 NEG ATIVE UA CULTURE NEEDED? (test code = UACULT) Criteria Culture Chk SOURCE OF URINE: CLEAN CATCHUR HCG [id number] 13:07:00* Test Item Value Reference Range Interpretation Comments UR HCG QUAL (test code = HCGQLU) NEGATIVE SOURCE OF URINE: CLEAN CATCHURINE [id number] 10:03:00* Test Item Value Reference Range Interpretation Comments Isolate 1 (test code = ISO1) Gardnerella Vaginalis RETIC COUNT WW2020-01-31 23:10:00* Test Item Value Reference Range Interpretation Comments RET% (test code = RET) 1.00 % 0.26-1.60 RET_# (test code = RET#) 0.04 X10\\S\\6/uL 0.01-0.07 HCT (test code = HCT) 37.8 % 35.0-44.0 RBC (test code = RBC) 4.00 10\\S\\6/uL 4.30-5.70 L RET_COR (test code = RETC) 0.90 % 0.26-1.60 SARS-CoV (RAPID ANTIGEN) WW2020-01-31 22:35:00* Test Item Value Reference Range Interpretation Comments SARS-CoV (ANTIGEN) (test code = COVAG) NEGATIVE NEGATIVE COVID AG (test code = COVAGC) This test has been m arketed under the FDA Emergency Use Authorization (EUA) to meet challenges of the COVID-19 pandemic. The validation standards normally enforced by the FDA and the [employer] ([employer]) are more stringent than those required for this test. Therefore, the result should be interpreted with caution and close attention to other clinical and epidemiological data COMPREHENSIVE METABOLIC BEY *WW*2020-01-31 22:29:00* Test Item Value Reference Range Interpretation Comments GLUCOSE (test code = 06D) 92 mg/dL 75-100 SODIUM (test code = 01A) 139 mmol/L 136-145 POTASSIUM (test code = 01B) 3.9 mmol/L 3.6-5.1 CHLORIDE (test code = 04A) 107 mmol/L 98-107 CO2 (test code = 02A) 24 mmol/L 22-32 ANION GAP (test code = ANG) 11.9 mmol/L BUN (test code = 05D) 9 mg/dL 7-18 CREATININE (test code = 03E) 0.8 mg/dL 0.4-1.1 GFR (test code = GFR) 101 mL/min/1.73m\\S\\2 >=90 GFR (test code = GFRAA) 117 mL/min/1.73m\\S\\2 >=90 EGFR (test code = EGFR) eGFR BY CKD-EPI CALCUL ATION IS NOT RECOMMENDED FOR PATIENTS UNDER 18 YEARS OF AGE. BUN/CREA (test code = BCR) 12 12-20 CALCIUM (test code = 09D) 8.5 mg/dL 8.3-9.5 BILI TOTAL (test code = 11A) 0.1 mg/dL 0.2-1.0 L PROTEIN (test code = 07D) 7.8 g/dL 6.4-8.2 ALBUMIN (test code = 08D) 4.0 g/dL 3.5-4.8 GLOBULIN (test code = GLB) 3.8 g/dL 1.5-3.8 ALB/GLOB (test code = AGRR) 1.1 1.0-2.6 ALK PHOS (test code = 35A) 41 IU/L 42-121 L AST (test code = 30A) 22 IU/L <=42 ALT (test code = 31A) 18 IU/L <=78 URINALYSIS WITH MICRO *WW*2020-01-31 22:22:00* Test Item Value Reference Range Interpretation Comments COLOR (test code = COLU) YELLOW YELLOW CLARITY (test code = CLA) TURBID CLEAR A GLUCOSE UR (test code = UA GLUCOSE) NEGATIVE NEGATIVE BILI UR (test code = BILE) NEGATIVE NEGATIVE KETONES UR (test code = ANAY) NEGATIVE NEGATIVE SP GRAVITY (test code = SPGR) 1.025 1.005-1.030 PH UR (test code = PH) 7.0 4.5-8.0 PROTEIN UR (test code = PU) TRACE NEGATIVE A UROBIL UR (test code = UROQ) 0.2 EU/dL 0.2-1.0 NITRITE UR (test code = NITRITE) NEGATIVE NEGATIVE BLOOD UR (test code = UA BLOOD) NEGATIVE NEGATIVE LEUK ES UR (test code = LEUK) TRACE NEGATIVE A WBC UR (test code = UWBC) 10 /HPF 0-5 H RBC UR (test code = URBC) 3 /HPF 0-2 H EPITH UR (test code = UEPC) MANY /LPF FEW A BACTERIA UR (test code = UBACT) MODERATE /HPF NONE A CAST UR (test code = CAST) /LPF NONE CRYSTAL UR (test code = CRYU) / LPF NONE MUCUS UR (test code = MUC) MODERATE / HPF NONE A AMORPH UR (test code = ARTURO) / HPF NONE TRICH UR (test code = UTRICH) /HPF NONE YEAST UR (test code = UY) /HPF NONE SPERM UR (test code = USPERM) /HPF NONE URINE MONOCLONAL *WW*2020-01-31 22:20:00* Test Item Value Reference Range Interpretation Comments PREG UR (test code = PGU) NEGATIVE NEGATIVE CBC (INCLUDES AUTOMATED DIFFERENTIAL)*[id number] 22:16:00* Test Item Value Reference Range Interpretation Comments WBC (test code = WBC) 4.5 10\\S\\3/uL 4.5-11.0 RBC (test code = RBC) 4.01 10\\S\\6/uL 4.30-5.70 L HGB (test code = HBG) 13.0 g/dL 12.0-15.5 HCT (test code = HCT) 37.9 % 35.0-44.0 MCV (test code = MCV) 94.5 fL 81.0-99.0 MCH (test code = MCH) 32.4 pg 27.0-31.0 H MCHC (test code = MCHC) 34.3 g/dL 32.0-36.0 RDW (test code = RDW) 12.1 % 11.5-14.5 PLT (test code = PLT) 212 10\\S\\3/uL 130-400 MPV (test code = MPV) 11.3 fL 9.4-12.4 NEUTROP # (test code = NE#) 1.7 10\\S\\3/uL 1.6-8.0 LYMPH # (test code = LY#) 2.2 10\\S\\3/uL 1.1-3.5 MONOCYTE # (test code = MO#) 0.3 10\\S\\3/uL 0.0-1.1 EOSINOPH # (test code = EO#) 0.2 10\\S\\3/uL 0.0-0.7 BASOPHIL # (test code = BA#) 0.0 10\\S\\3/uL 0.0-0.3 IG # (test code = IG#) 0.00 10\\S\\3/uL 0.00-0.06 NRBC # (test code = NRBC#) 0.00 10\\S\\3/uL 0.00-0.01 NEUTROPH % (test code = NE%) 38.0 % 35.0-73.0 LYMPH % (test code = LY%) 50.1 % 20.0-55.0 MONO % (test code = MO%) 6.9 % 2.5-10.0 EOSINOPH % (test code = EO%) 4.3 % 0.0-5.0 BASOPHIL % (test code = BA%) 0.7 % 0.0-2.0 IG % (test code = IG%) 0.0 % 0.0-0.8 NRBC% (test code = NRBC%) 0.0 % 0.0-0.2 MANDIFF (test code = WMDIFF) NO NO RBC MORPH (test code = WRBCMOR) NORMAL URINALYSIS [id number] 11:29:00* Test Item Value Reference Range Interpretation Comments UA COLOR (test code = COLU) YELLOW YELLOW UA APPEARANCE (test code = APPU) Cloudy CLEAR UA GLUCOSE DIPSTICK (test code = DGLUU) NEGATIVE NEGATIVE UA BILIRUBIN DIPSTICK (test code = BILU) NEGATIVE NEGATIVE UA KETONE DIPSTICK (test code = KETU) Trace NEGATIVE A UA SPECIFIC GRAVITY (test code = SGU) 1.025 1.001-1.030 UA BLOOD DIPSTICK (test code = KIRTI) NEGATIVE NEGATIVE UA PH DIPSTICK (test code = GABRIEL) 5.0 5.0-9.0 UA PROTEIN DIPSTICK (test code = PROU) NEGATIVE NEGATIVE UA UROBILINOGEN DIPSTICK (test code = URO) NEGATIVE <=1.0 UA NITRITE DIPSTICK (test code = BLU) NEGATIVE NEGATIVE UA ASCORBIC ACID DIPSTICK (test code = AAU) POSITIVE A High levels of ascorbic acid may cause false negativeresults for blood, glucose & nitrite. UA LEUKOCYTE ESTERASE DIPSTICK (test code = LEUU) TRACE NEGA TIVE A UA WBC (test code = WBCU) 6-10 /HPF 0-5 UA RBC (test code = RBCU) 0-5 /HPF 0-5 UA EPITHELIAL CELLS (test code = EPIU) MANY /LPF NONE-FEW UA BACTERIA (test code = BACU) None /HPF NONE SEEN UA MUCUS (test code = MUCU) 4+ /LPF NONE SEEN UR HCG [id number] 11:29:00* Test Item Value Reference Range Interpretation Comments UR HCG QUAL (test code = HCGQLU) NEGATIVE NEGATIVE BASIC METABOLIC [id number] 11:21:00* Test Item Value Reference Range Interpretation Comments SODIUM (test code = NA) 137 mmol/L 135-145 N POTASSIUM (test code = K) 4.2 mmol/L 3.6-5.0 N CHLORIDE (test code = CL) 107 mmol/L 101-111 N CARBON DIOXIDE (test code = CO2) 22 mmol/L 21-31 N GLUCOSE (test code = GLU) 84 mg/dl 70-100 N BLOOD UREA NITROGEN (test code = BUN) 7 mg/dl 6-20 N GLOMERULAR FILTRATION RATE (test code = GFR) >=60 max estimate >60 The estimated glomerular filtration rate is computed usingpatient race, age (>18), sex, and serum creatinine. If anyof the needed data elements are missing the Laboratory cannot compute an estimation of the glomerular filtration rate. CREATININE (test code = CREAT) 0.87 mg/dL 0.44-1.03 N CALCIUM (test code = CA) 9.4 mg/dL 8.5-10.5 N LIVER FUNCTION [id number] 11:21:00* Test Item Value Reference Range Interpretation Comments TOTAL PROTEIN (test code = PROT) 7.6 g/dL 6.7-8.2 N ALBUMIN (test code = ALB) 4.4 g/dL 3.2-5.5 N BILIRUBIN TOTAL (test code = BILT) 0.70 mg/dL 0.2-1.3 N BILIRUBIN DIRECT (test code = BILD) 0.1 mg/dL 0.00-0.20 N SGOT/AST (test code = AST) 16 U/L 10-42 N SGPT/ALT (test code = ALT) 11 U/L 10-60 N ALKALINE PHOSPHATASE (test code = ALKP) 37 U/L 42-121 L [id number] 11:21:00* Test Item Value Reference Range Interpretation Comments LIPASE (test code = LIP) 24 IU/L 22-51 N BASIC METABOLIC [id number] 11:17:00* Test Item Value Reference Range Interpretation Comments SODIUM (test code = NA) 137 mmol/L 135-145 N POTASSIUM (test code = K) 4.2 mmol/L 3.6-5.0 N CHLORIDE (test code = CL) 107 mmol/L 101-111 N CARBON DIOXIDE (test code = CO2) 22 mmol/L 21-31 N GLUCOSE (test code = GLU) 84 mg/dl 70-100 N BLOOD UREA NITROGEN (test code = BUN) 7 mg/dl 6-20 N GLOMERULAR FILTRATION RATE (test code = GFR) >=60 max estimate >60 The estimated glomerular filtration rate is computed usingpatient race, age (>18), sex, and serum creatinine. If anyof the needed data elements are missing the Laboratory cannot compute an estimation of the glomerular filtration rate. CREATININE (test code = CREAT) 0.87 mg/dL 0.44-1.03 N CALCIUM (test code = CA) 9.4 mg/dL 8.5-10.5 N LIVER FUNCTION [id number] 11:17:00* Test Item Value Reference Range Interpretation Comments TOTAL PROTEIN (test code = PROT) 7.6 g/dL 6.7-8.2 N ALBUMIN (test code = ALB) 4.4 g/dL 3.2-5.5 N BILIRUBIN TOTAL (test code = BILT) mg/dL 0.2-1.3 BILIRUBIN DIRECT (test code = BILD) mg/dL 0.00-0.20 SGOT/AST (test code = AST) U/L 10-42 SGPT/ALT (test code = ALT) U/L 10-60 ALKALINE PHOSPHATASE (test code = ALKP) U/L 42-121 [id number] 11:17:00* Test Item Value Reference Range Interpretation Comments LIPASE (test code = LIP) 24 IU/L 22-51 N CBC W/AUTO [id number] 11:03:00* Test Item Value Reference Range Interpretation Comments WHITE BLOOD CELL (test code = WBC) 5.3 x10 3/uL 3.2-11.5 N RED BLOOD CELL (test code = RBC) 4.11 x10(6)/m 3.70-5.10 N HEMOGLOBIN (test code = HGB) 13.2 g/dL 12.0-15.0 N HEMATOCRIT (test code = HCT) 39.7 % 35.7-44.8 N MEAN CELL VOLUME (test code = MCV) 97 fL 80-100 N MEAN CELL HGB (test code = MCH) 32.1 pg 26.2-33.8 N MEAN CELL HGB CONCENTRATION (test code = MCHC) 33.2 g/dL 30.0-34 .0 N RED CELL DISTRIBUTION WIDTH (test code = RDW) 12.4 % 11.3-14. 5 N PLATELET COUNT (test code = PLT) 266 x10 3/uL 130-408 N MEAN PLATELET VOLUME (test code = MPV) 11.0 fL 8.6-12.6 N NEUTROPHIL % (test code = NT%) 50.1 % 40.0-70.0 N IMMATURE GRANULOCYTE % (test code = IG%) 0.2 % 0.0-2.0 N LYMPHOCYTE % (test code = LY%) 36.3 % 20-40 N MONOCYTE % (test code = MO%) 8.9 % 1-10 N EOSINOPHIL % (test code = EO%) 3.6 % 0.0-5.0 N BASOPHIL % (test code = BA%) 0.9 % 0.0-1.0 N NUCLEATED RBC % (test code = NRBC%) 0.0 % 0.0-0.9 N NEUTROPHIL # (test code = NT#) 2.7 x10 3/uL 1.6-7.2 N LYMPHOCYTE # (test code = LY#) 1.93 x10 3/uL 1.1-2.7 N MONOCYTE # (test code = MO#) 0.5 x10 3/uL 0.3-0.8 N EOSINOPHIL # (test code = EO#) 0.2 x10 3/uL 0.0-0.5 N BASOPHIL # (test code = BA#) 0.1 x10 3/uL 0.0-0.1 N Urine [id number] 08:42:00* Test Item Value Reference Range Interpretation Comments Result (test code = 6463-4) >100,000 col/mL skin vane [facility] W/PLT COUNT & AUTO [id number] 19:49:00* Test Item Value Reference Range Interpretation Comments WHITE BLOOD CELL COUNT (BEAKER) (test code = 775) 5.6 K/ L 4.0- 10.0 RED BLOOD CELL COUNT (BEAKER) (test code = 761) 4.31 M/ L 4.00-5 .00 HEMOGLOBIN (BEAKER) (test code = 410) 14.3 GM/DL 12.0-15.5 HEMATOCRIT (BEAKER) (test code = 411) 41.2 % 36.0-46.0 MEAN CORPUSCULAR VOLUME (BEAKER) (test code = 753) 95.6 fL 82. 0-99.0 MEAN CORPUSCULAR HEMOGLOBIN (BEAKER) (test code = 751) 33.2 pg 27.0-33.0 H MEAN CORPUSCULAR HEMOGLOBIN CONC (BEAKER) (test code = 752) 34.7 GM/DL 32.0-36.0 RED CELL DISTRIBUTION WIDTH (BEAKER) (test code = 412) 12.8 % 12.0-15.0 PLATELET COUNT (BEAKER) (test code = 756) 154 K/CU MM 150-430 MEAN PLATELET VOLUME (BEAKER) (test code = 754) 13.0 fL 6.0-11 .5 H NUCLEATED RED BLOOD CELLS (BEAKER) (test code = 413) 0 /100 WBC 0 -0 NEUTROPHILS RELATIVE PERCENT (BEAKER) (test code = 429) 59 % LYMPHOCYTES RELATIVE PERCENT (BEAKER) (test code = 430) 33 % MONOCYTES RELATIVE PERCENT (BEAKER) (test code = 431) 6 % EOSINOPHILS RELATIVE PERCENT (BEAKER) (test code = 432) 2 % BASOPHILS RELATIVE PERCENT (BEAKER) (test code = 437) 1 % NEUTROPHILS ABSOLUTE COUNT (BEAKER) (test code = 670) 3.30 K/ L 1.80-8.00 LYMPHOCYTES ABSOLUTE COUNT (BEAKER) (test code = 414) 1.83 K/ L 1.48-4.50 MONOCYTES ABSOLUTE COUNT (BEAKER) (test code = 415) 0.32 K/ L 0. 00-1.30 EOSINOPHILS ABSOLUTE COUNT (BEAKER) (test code = 416) 0.12 K/ L 0.00-0.50 BASOPHILS ABSOLUTE COUNT (BEAKER) (test code = 417) 0.05 K/ L 0. 00-0.20 IMMATURE GRANULOCYTES-RELATIVE PERCENT (BEAKER) (test code = 2801) 0 % 0-0 [id number] 19:41:00* Test Item Value Reference Range Interpretation Comments LIPASE (BEAKER) (test code = 749) 24 U/L 6-51 Fleet Manager/Dispatch ID - [id number] metabolic panel (Na, K+, Cl, CO2, Glu, Ca, BUN, Cr) 2020-01-14 19:40:00* Test Item Value Reference Range Interpretation Comments Sodium (test code = 2951-2) 136 meq/L 135-148 Potassium (test code = 2823-3) 4.9 meq/L 3.6-5.5 Specimen moderately hemolyzed Chloride (test code = 2075-0) 109 meq/L 98-106 H CO2 (test code = 2028-9) 15 meq/L 20-29 L BUN (test code = 3094-0) 18 mg/dL 10-26 Creatinine (test code = 2160-0) 0.69 mg/dL 0.5-1.2 Specimen moderately hemolyzed Glucose (test code = 2345-7) 70 mg/dL 70-110 Calcium (test code = 52605-5) 9.4 mg/dL 8.5-10.5 EGFR (test code = 92884-5) 117 mL/min/1.73 sq m ESTIMATED GFR IS NOT ACCURATE CREATININE CLEARANCE IN PREDICTING GLOMERULAR FILTRATION RATE. ESTIMATED GFR IS NOT APPLICABLE FOR DIALYSIS PATIENTS. RADHA (test code = RADHA) Fleet Manager/Dispatch ID - [id number] Lab Interpretation (test code = 02042-2) [facility] [id number] 19:40:00* Test Item Value Reference Range Interpretation Comments SODIUM (BEAKER) (test code = 381) 136 meq/L 135-148 POTASSIUM (BEAKER) (test code = 379) 4.9 meq/L 3.6-5.5 Specimen moderately hemolyzed CHLORIDE (BEAKER) (test code = 382) 109 meq/L 98-106 H CO2 (BEAKER) (test code = 355) 15 meq/L 20-29 L BLOOD UREA NITROGEN (BEAKER) (test code = 354) 18 mg/dL 10-26 CREATININE (BEAKER) (test code = 358) 0.69 mg/dL 0.50-1.20 Specimen moderately hemolyzed GLUCOSE RANDOM (BEAKER) (test code = 652) 70 mg/dL 70-110 CALCIUM (BEAKER) (test code = 697) 9.4 mg/dL 8.5-10.5 EGFR (BEAKER) (test code = 1092) 117 mL/min/1.73 sq m ESTIMATED GFR IS NOT ACCURATE CREATININE CLEARANCE IN PREDICTING GLOMERULAR FILTRATION RATE. ESTIMATED GFR IS NOT APPLICABLE FOR DIALYSIS PATIENTS. Fleet Manager/Dispatch ID - [id number], [id number] 19:36:00Reason for exam:-> DYSURIAReason for exam:->one month durationIs the patient ?->NoWhat is the patient's sedation requirement?->No SedationFINAL REPORT CLINICAL HISTORY: Dysuria FINDINGS: Multiple axial [...] of obstructive uropathy. Stomach and Duodenum: No sig nificant findings. Pancreas: No significant findings. Bowel: No obstruction or p neumatosis intestinalis. Appendix: Normal. Bladder: No significant findings. Major vascular structures: No significant findings. Reproductive organs: No sign ificant findings. Other: No free air, fluid or adenopathy Skeleton: No acute bon y abnormality. IMPRESSION: No acute abnormality to explain the patient's dysuria . No significant interval change from previous. Enteric contrast in the normal l arge intestine from a recent imaging procedure performed at an outside facility. Please correlate with intervening history. Signed: Leigh Pichardo MDReport Verif ied Date/Time: 01/14/2020 19:36:56 abdomen pelvis without [id number] 19:36:00Interface, External Ris In - 01/14/2020 7:39 PM CDTFINAL REPORT CLINICAL HISTORY: Dysuria FINDINGS: Multiple axial [...] facility. Please correlate with intervening history. Signed: Leigh Pichardo MDReport Verified Date/Time: 01/14/2020 19:36:56 [facility] [id number] 17:01:00* Test Item Value Reference Range Interpretation Comments Protein, Total (test code = 2885-2) 8.8 6.0- 8.5 gm/dL H Albumin (test code = 58949-7) 4.4 g/dL 3.5-5 Total Bilirubin (test code = 1975-2) 0.2 mg/dL 0.1-1.2 Bilirubin, Direct (test code = 1967-7) <0.1 0-0.4 Alkaline Phosphatase (test code = 6768-6) 36 U/L 30-115 AST (test code = 1920-8) 35 U/L 5-40 ALT (test code = 1742-6) 11 U/L 5-50 RADHA (test code = RADHA) Fleet Manager/Dispatch ID - [id number] Lab Interpretation (test code = 20737-2) Abnormal [facility] [id number] 17:01:00* Test Item Value Reference Range Interpretation Comments TOTAL PROTEIN (BEAKER) (test code = 770) 8.8 gm/dL 6.0-8.5 H ALBUMIN (BEAKER) (test code = 1145) 4.4 g/dL 3.5-5.0 BILIRUBIN TOTAL (BEAKER) (test code = 377) 0.2 mg/dL 0.1-1.2 BILIRUBIN DIRECT (BEAKER) (test code = 706) < mg/dL 0.0-0.4 ALKALINE PHOSPHATASE (BEAKER) (test code = 346) 36 U/L 30-115 AST (SGOT) (BEAKER) (test code = 353) 35 U/L 5-40 ALT (SGPT) (BEAKER) (test code = 347) 11 U/L 5-50 Fleet Manager/Dispatch ID - JUSTINRapid drug screen, [id number] 16:52:00* Test Item Value Reference Range Interpretation Comments Barbiturate Screen (test code = 11220-5) Negative Negative Benzodiazepine Screen (test code = 02832-4) Positive Negative A Cocaine (Metab.) Screen (test code = 3397-7) Positive Negative A Methadone Screen (test code = 64628-9) Negative Negative Opiate Screen (test code = 22851-4) Positive Negative A Cannabinoid Screen (test code = 58536-9) Negative Negative Amph/Methamph Screen (test code = 32482-0) Positive Negative A Phencyclidine Screen (test code = 95209-7) Negative Negative pH, UA (test code = 5803-2) 7.0 5.0-8.0 RADHA (test code = RADHA) DRUG CUTOFF C ONC.Cocaine 300 ng/mL Cannabinoid 50 ng/mLBenzodiazepine 200 ng/mLBarbiturate 200 ng/mLPhencyclidine 25 ng/mLOpiate 300 ng/mLMethadone 300 ng/mLAmphetamine/ 1000 ng/mL Methamphetamine This assay provides an unconfirmed qualitative test result for the clinical management of patients in emergency situations. Chain of custody not maintained. Some mkoo-pbz-lcukshv medications, as well as adulterants, may cause inaccurate results. Clinical correlation should be applied. A more comprehensive drug screen or confirmation of a detected drug may be performed upon request.Fleet Manager/Dispatch ID - JUSTINOperator ID - JUSTINOperator ID - JUSTINOperator ID - JUSTINOperator ID - JUSTINOperator ID - JUSTINOperator ID - JUSTINOperator ID - MANUELITO Lab Interpretation (test code = 58270-5) Abnormal [facility], [id number] 16:52:00* Test Item Value Reference Range Interpretation Comments [...] (BEAKER) (test code = 608) Negative Negative PH UA (BEAKER) (test code = 467) 7.0 5.0-8.0 DRUG CUTOFF CONC.Cocaine 300 ng/mL Cannabinoid 50 ng/mLBenzodiazepine 200 ng/mLBarbiturate 200 ng/mLPh encyclidine 25 ng/mLOpiate 300 ng/mLMethadone 300 ng/mLAmphetamine/ 1000 ng/mL MethamphetamineThis assay provides an unconfirmed qualitative test result for the clinical management of patients in emergency situations. Chain of custody not maintained. Some zclb-xjw-rrbzhqu me dications, as well as adulterants, may cause inaccurate results. Clinical correl ation should be applied. A more comprehensive drug screen or confirmation of a d etected drug may be performed upon request.Fleet Manager/Dispatch ID - JUSTINOperator ID - JUS TINOperator ID - JUSTINOperator ID - JUSTINOperator ID - JUSTINOperator ID - JUS TINOperator ID - JUSTINOperator ID - JUSTINURINALYSIS W/ [id number] 16:50:00* Test Item Value Reference Range Interpretation Comments [...] 20-50 /HPF SOURCE(BEAKER) (test code = 2795) screen, [id number] 16:38:00* Test Item Value Reference Range Interpretation Comments Preg Test, Ur (test code = 2112-1) Negative [facility], [id number] 16:38:00* Test Item Value Reference Range Interpretation Comments TEST URINE (BEAKER) (test code = 583) Negative CT Abdomen Pelvis Wo [id number] 21:52:29Hm Interface, Radiology Results 01/12/2020 9:55 PM CDTCT ABDOMEN PELVIS WO CONTRASTCLINICAL INDICATION: abd painTECHNIQUE: Multidetector CT of the abdomen and pelvis was performed without intravenous contrast with multiplanar reconstructions. CT imaging was performed with iterative reconstruction technique and/or automated exposure control to reduce radiation dose.COMPARISON: 2018IMPRESSION:Please note, the lack of intravenous and oral contrast limits ava luation of the abdominal and pelvic viscera.ABDOMEN/PELVIS:LOWER THORAX: Clear. LIVER: Normal.BILIARY: Normal. SPLEEN: Normal.PANCREAS: Normal.ADRENALS: Normal. KIDNEYS: Marked distention of the bladder is seen, which could represen t neurogenic bladder or outlet obstruction. No hydronephrosis or hydroureter. Ki dneys are unremarkable.PERITONEUM: Small fluid is seen in the pelvis. No free in traperitoneal air. VASCULAR: UnremarkableLYMPH NODES: No enlarged lymph nodes in the abdomen or pelvis.GI: Mild colonic diverticulosis is seen without divert iculitis. The appendix is normal. No gastrointestinal tract obstruction.BONES: There are no acute osseous abnormalities.SOFT TISSUES: Unremarkable.Summary:Mar ked distention of the bladder is seen, which could be seen with neurogenic bladd er or outlet obstruction. No hydronephrosis or hydroureter.[facility] [id number] MethodistOccult blood, [id number] 21:23:11* Test Item Value Reference Range Interpretation Comments Occult blood, stool (test code = 2334-1) Negative for occult blood. Specimen InformationSpecimen Source: StoolSpecimen Site: [facility] Pelvic [id number] 21:07:06 Interface, Radiology Results 01/12/2020 9:10 PM CDTEXAMINATION: US PELVIC TRANSABDOMINAL, US PELVIC TRANSVAGINALCLINICAL HISTORY: lower [place]ott nCOMPARISON: None.TECHNIQUE: Transabdominal and endovaginal sonographic images of the pelvis were obtained. Grayscale, color Doppler, and spectral waveform maria antonia lysis of the ovarian vessels was performed.FINDINGS:Suboptimal evaluation due to patient condition and overlying bowel gas. Patient unable to void urinary bladd er.The uterus is anteverted, measures 10.2 x 4.6 x 5.6 cm. No uterine masses. Ce rvix is normal. Endometrium is normal; endometrial stripe measures 0.71 cm. The right ovary measures 3.2 x 2.8 x 2.1 cm. Normal Doppler flow was present.The lef t ovary is not visualized.No adnexal masses.No visualized free pelvic fluid. IMP RESSION:Suboptimal evaluation. Nonvisualization of left ovary. Otherwise unremar kable transabdominal and endovaginal pelvic ultrasound examination.[facility] [id number] [facility] MethodistUS Pelvic [id number] 21:07:06Hm Interface, Radiology Results 01/12/2020 9:10 PM CDTEXAMINATION: US PELVIC TRANSABDOMINAL, US PELVIC TRANSVAGINALCLINICAL HISTORY: lower [place]ott nCOMPARISON: None.TECHNIQUE: Transabdominal and endovaginal sonographic images of the pelvis were obtained. Grayscale, color Doppler, and spectral waveform maria antonia lysis of the ovarian vessels was performed.FINDINGS:Suboptimal evaluation due to patient condition and overlying bowel gas. Patient unable to void urinary bladd er.The uterus is anteverted, measures 10.2 x 4.6 x 5.6 cm. No uterine masses. Ce rvix is normal. Endometrium is normal; endometrial stripe measures 0.71 cm. The right ovary measures 3.2 x 2.8 x 2.1 cm. Normal Doppler flow was present.The lef t ovary is not visualized.No adnexal masses.No visualized free pelvic fluid. IMP RESSION:Suboptimal evaluation. Nonvisualization of left ovary. Otherwise unremar kable transabdominal and endovaginal pelvic ultrasound examination.[facility] [id number] [facility] MethodistRAPID DRUG SCREEN, [id number] 10:06:00* Test Item Value Reference Range Interpretation Comments BARBITURATE URINE (BEAKER) (test code = 725) Negative Negative BENZODIAZEPINE SCREEN URINE (BEAKER) (test code = 726) Positive Negative A COCAINE (METAB.) SCREEN (BEAKER) (test code = 1164) Negative Ne gative METHADONE SCREEN (BEAKER) (test code = 1436) Negative Negative OPIATE SCREEN URINE (BEAKER) (test code = 734) Positive Negativ e A CANNABINOID SCREEN URINE (BEAKER) (test code = 727) Negative Ne gative AMPH/METHAMPH SCREEN (BEAKER) (test code = 1438) Positive Negat karla A PHENCYCLIDINE SCREEN URINE (BEAKER) (test code = 608) Negative Negative PH UA (BEAKER) (test code = 467) 6.0 5.0-8.0 DRUG CUTOFF CONC.Cocaine 300 ng/mL Cannabinoid 50 ng/mLBenzodiazepine 200 ng/mLBarbiturate 200 ng/mLPh encyclidine 25 ng/mLOpiate 300 ng/mLMethadone 300 ng/mLAmphetamine/ 1000 ng/mL MethamphetamineThis assay provides an unconfirmed qualitative test result for the clinical management of patients in emergency situations. Chain of custody not maintained. Some ghen-drp-brjfjdz me dications, as well as adulterants, may cause inaccurate results. Clinical correl ation should be applied. A more comprehensive drug screen or confirmation of a d etected drug may be performed upon request.Fleet Manager/Dispatch ID - [id number] ID - zdx s81Jbqqyivp ID - [id number] ID - [id number] ID - [id number] ID - zdx c18Csoprxhn ID - [id number] ID - jcxy01T2, wrxm3707-66-37 07:49:00* Test Item Value Reference Range Interpretation Comments Free T4 (test code = 3024-7) 0.79 ng/dL 0.9-1.8 L RADHA (test code = RADHA) Fleet Manager/Dispatch ID - [id number] Lab Interpretation (test code = 17350-7) Abnormal [facility] HospitalT4, [id number] 07:49:00* Test Item Value Reference Range Interpretation Comments FREE T4 (BEAKER) (test code = 655) 0.79 ng/dL 0.90-1.80 L Fleet Manager/Dispatch ID - [id number]/Free T4 If [id number] 07:18:00* Test Item Value Reference Range Interpretation Comments TSH (test code = 50130-9) 0.330 0.350- 5.500 uIU/mL L RADHA (test code = RADHA) Fleet Manager/Dispatch ID - [id number] Lab Interpretation (test code = 81708-0) Abnormal [facility] HospitalTSH/FREE T4 IF [id number] 07:18:00* Test Item Value Reference Range Interpretation Comments THYROID STIMULATING HORMONE (BEAKER) (test code = 772) 0.330 uIU /mL 0.350-5.500 L Fleet Manager/Dispatch ID - [id number] METABOLIC [id number] 06:47:00* Test Item Value Reference Range Interpretation Comments SODIUM (BEAKER) (test code = 381) 139 meq/L 135-148 POTASSIUM (BEAKER) (test code = 379) 4.0 meq/L 3.6-5.5 CHLORIDE (BEAKER) (test code = 382) 111 meq/L 98-106 H CO2 (BEAKER) (test code = 355) 24 meq/L 20-29 BLOOD UREA NITROGEN (BEAKER) (test code = 354) 9 mg/dL 10-26 L CREATININE (BEAKER) (test code = 358) 0.65 mg/dL 0.50-1.20 GLUCOSE RANDOM (BEAKER) (test code = 652) 70 mg/dL 70-110 CALCIUM (BEAKER) (test code = 697) 8.0 mg/dL 8.5-10.5 L EGFR (BEAKER) (test code = 1092) 125 mL/min/1.73 sq m ESTIMATED GFR IS NOT ACCURATE CREATININE CLEARANCE IN PREDICTING GLOMERULAR FILTRATION RATE. ESTIMATED GFR IS NOT APPLICABLE FOR DIALYSIS PATIENTS. Fleet Manager/Dispatch ID - [id number] W/PLT COUNT & AUTO [id number] 06:36:00* Test Item Value Reference Range Interpretation Comments WHITE BLOOD CELL COUNT (BEAKER) (test code = 775) 3.3 K/ L 4.0- 10.0 L RED BLOOD CELL COUNT (BEAKER) (test code = 761) 3.27 M/ L 4.00-5 .00 L HEMOGLOBIN (BEAKER) (test code = 410) 10.5 GM/DL 12.0-15.5 L HEMATOCRIT (BEAKER) (test code = 411) 31.7 % 36.0-46.0 L MEAN CORPUSCULAR VOLUME (BEAKER) (test code = 753) 96.9 fL 82. 0-99.0 MEAN CORPUSCULAR HEMOGLOBIN (BEAKER) (test code = 751) 32.1 pg 27.0-33.0 MEAN CORPUSCULAR HEMOGLOBIN CONC (BEAKER) (test code = 752) 33.1 GM/DL 32.0-36.0 RED CELL DISTRIBUTION WIDTH (BEAKER) (test code = 412) 12.7 % 12.0-15.0 PLATELET COUNT (BEAKER) (test code = 756) 201 K/CU MM 150-430 MEAN PLATELET VOLUME (BEAKER) (test code = 754) 10.8 fL 6.0-11 .5 NUCLEATED RED BLOOD CELLS (BEAKER) (test code = 413) 0 /100 WBC 0 -0 NEUTROPHILS RELATIVE PERCENT (BEAKER) (test code = 429) 41 % LYMPHOCYTES RELATIVE PERCENT (BEAKER) (test code = 430) 43 % MONOCYTES RELATIVE PERCENT (BEAKER) (test code = 431) 11 % EOSINOPHILS RELATIVE PERCENT (BEAKER) (test code = 432) 4 % BASOPHILS RELATIVE PERCENT (BEAKER) (test code = 437) 1 % NEUTROPHILS ABSOLUTE COUNT (BEAKER) (test code = 670) 1.35 K/ L 1.80-8.00 L LYMPHOCYTES ABSOLUTE COUNT (BEAKER) (test code = 414) 1.43 K/ L 1.48-4.50 L MONOCYTES ABSOLUTE COUNT (BEAKER) (test code = 415) 0.36 K/ L 0. 00-1.30 EOSINOPHILS ABSOLUTE COUNT (BEAKER) (test code = 416) 0.14 K/ L 0.00-0.50 BASOPHILS ABSOLUTE COUNT (BEAKER) (test code = 417) 0.03 K/ L 0. 00-0.20 IMMATURE GRANULOCYTES-RELATIVE PERCENT (BEAKER) (test code = 2801) 0 % 0-0 CT, [id number] 05:16:00Reason for exam:->ABDOMINAL PAINSuprapubic pain that radiates to the right lower back. Pt. had finished her Rx ABX for UTI 2 days ago. Also c/o burning \\T\\ frequency of urination with N/V.Is the patient ?->NoWhat is the patient's sedation requirement?->No SedationFINAL REPORT CLINICAL HISTORY: Acute abdominal pain FINDINGS: Multiple axial images of the abdomen and pelvis were performed without int ravenous contrast. Oral contrast was not given. This exam was performed accordin g to our departmental dose-optimization program, which includes automated exposu re control, adjustment of the mA and/or kV according to patient size and/or use of the iterative reconstruction technique. Comparison: 11/06/2019 Lower chest: Pop ar lungs. No pleural effusion or pneumothorax. Visualized cardiac contours laverne l. Liver: No significant findings. Gallbladder and biliary tree: No significant findings. Spleen: No significant findings. Adrenal Glands: No significant findin gs. Kidneys and ureters: No significant findings. Stomach and Duodenum: No signi ficant findings. Pancreas: No significant findings. Bowel: No significant findin gs. Appendix: Normal. Bladder: No significant findings. Major vascular struct ures: No significant findings. Reproductive organs: No significant findings. Oth er: No free air, fluid or adenopathy Skeleton: No acute bony abnormality. IMPRES VIKKI: No acute abnormality. Signed: Leigh Pichardo MDReport Verified Date/Time: 12/25/2019 05:16:07 Electronically signed by: LEIGH PICHARDO M.D. on 12/03 05:16 AM BASIC METABOLIC [id number] 03:08:00* Test Item Value Reference Range Interpretation Comments [...] GFR IS NOT APPLICABLE FOR DIALYSIS PATIENTS. Fleet Manager/Dispatch ID - [id number] 03:05:00* Test Item Value Reference Range Interpretation Comments LIPASE (BEAKER) (test code = 749) 20 U/L 6-51 Fleet Manager/Dispatch ID - RESORIANURINALYSIS W/ [id number] 03:05:00* Test Item Value Reference Range Interpretation [...] SOURCE(BEAKER) (test code = 2795) HEPATIC FUNCTION [id number] 03:04:00* Test Item Value Reference Range Interpretation [...] (test code = 347) 10 U/L 5-50 Fleet Manager/Dispatch ID - RESORIANPREGNANCY SCREEN, [id number] 03:02:00* Test Item Value Reference Range Interpretation Comments TEST URINE (BEAKER) (test code = 583) Negative Lactic acid, [id number] 02:57:00* Test Item Value Reference Range Interpretation Comments Lactate, Venous (test code = 2872) 0.41 mmol/L 0.5-2 L RADHA (test code = RADHA) Fleet Manager/Dispatch ID - RESORIAN Lab Interpretation (test code = 16603-4) Abnormal [facility] HospitalLACT[facility]ID, [id number] 02:57:00* Test Item Value Reference Range Interpretation Comments LACTATE BLOOD VENOUS (2) (BEAKER) (test code = 2872) 0.41 mmol/L 0 .50-2.00 L Fleet Manager/Dispatch ID - RESORIANCBC W/PLT COUNT & AUTO [id number] 02:44:00* Test Item Value Reference Range Interpretation [...] 0 % 0-0 US PELVIS-NON OB - [id number] 12:54:00 [place] [address] Patient Name: KENNETH PLATT MR #: [id number] : 1985 Age/Sex: 33/F Req #: [id number] Adm Physician: Ordered by: ED WAGNER MD Report #: [id number] Location: [facility] Room/Bed: Procedure: [id number] HOPD/US PEL VIS-NON OB - HOPD Exam [...] PM Dictated By: JUAN DAVID SPENCE MD 1252 Transcribed By: MALLIKA on 12/01/19 1255 COPY TO: ED JOLLY MD CT ABD/PEL WO [id number] 12:47:00 [place] [id number] Patient Name: KENNETH PLATT MR #: [id number] : 1985 Age/Sex: 33/F Req #: [id number] Adm Physician: Ordered by: ED WAGNER MD Report #: [id number] Location: [facility] Room/Bed: Procedure: [id number] HOPD/CT ABD /PEL WO CONTRAST-HOPD Exam Date: [...] 12/01/19 1254 COPY TO: ED WAGNER MD STD Panel - CT/GC [id number] 12:21:00* Test Item Value Reference Range Interpretation Comments C. trachomatis RNA, TMA (test code = 3908860) NOT DETECTED N. gonorrhoeae RNA, TMA (test code = 2218235) NOT DETECTED REFERENCE RANGE: NOT DETECTED Methodology: Doctor Podiatric Medicine Mediated Amplification (TMA)to detect RNA. The analytical performance characteristics of this assay,when used to test SurePath(TM) specimens have been determinedby [facility]. The modificationshave not been cleared or approved by the FDA. This assayhas been validated pursuant to the CLIA regulations andis used for clinical purposes. For additional information, please refer tohttps://education.ActionIQ.[employer]/faq/UQV946(This link is being provided for informational/educational purposes only.) RADHA (test code = RADHA) Performing Lab *QDID [facility] [address] [place] [id number] Ash Peres MD [facility], [id number] 16:13:00Reason for exam:-> ABDOMINAL PAINReason for exam:->NAUSEAReason for exam:->EMESISIs the patient ?->NoWhat is the patient's sedation requirement?->No SedationFINAL REPORT TECHNIQUE: CT of the abdomen and pelvis WITH intravenous contrast and WITHOUT oral contrast. Dose modulation, iterative bela nstruction, and/or weight-based adjustment of the mA/kV was utilized to reduce t he radiation dose to as low as reasonably achievable. INDICATION: ABDOMINAL PAIN NAUSEAEMESISabdominal pain. COMPARISON: CT from 08/17/2019. FINDINGS: LOWER THOR AX: Unremarkable. HEPATOBILIARY: No focal hepatic lesions. Gallbladder is unrema rkable. No biliary ductal dilatation.SPLEEN: No splenomegaly.PANCREAS: No focal masses or ductal dilatation. ADRENALS: No adrenal nodules.KIDNEYS/URETERS: No hy dronephrosis, stones, or masses.PELVIC ORGANS/BLADDER: A right ovarian periphera lly enhancing structure measures 1.6 cm and is consistent with a corpus sodium. No routine follow-up imaging is recommended. PERITONEUM/RETROPERITONEUM: Trace f ree fluid in the pelvis. No free air.LYMPH [...] Verified Date/Time: 11/06/2019 16:1 3:27 Reading Location: [facility] C013Y CT Body Reading Room Electronically sig justin by: TERESO ROSE MD on 11/06/2019 04:[address] abdomen pelvis with IV [id number] 16:13:00Interface, External Ris In - 11/06/2019 4:16 PM CDTFINAL REPORT TECHNIQUE: CT of the abdomen and [...] pelvis. No free air.LYMPH NODES: No lymphadenopathy.VESSELS: Unremarkable. GI TRACT: No dis tention or wall thickening. There is a linear hyperdense structure in the colon which is best seen on sagittal image 76. The appendix is normal. BONES AND SOFT TISSUES: Unremarkable. IMPRESSION: 1.No explanation on this CT for the abdomina l pain, nausea, and emesis. 2.There is a linear hyperdense structure in the colo n. This could be a chicken bone. There are no signs of perforation. Signed: Tereso Rose MDReport Verified Date/Time: 11/06/2019 16:13:27 Reading Location: [facility] [address] Body Reading Room [facility]OSCOPIC 2019-11-06 15:23:00* Test Item Value [...] /HPF SOURCE(BEAKER) (test code = 2795) SCREEN, [id number] 15:22:00* Test Item Value Reference Range Interpretation Comments TEST URINE (BEAKER) (test code = 583) Negative HIV-1 Antigen with HIV-1/2 [id number] 14:49:00* Test Item Value Reference Range Interpretation Comments HIV-1 Antigen with HIV 1&2 Antibody (test code = 92570-7) No nreactive Nonreactive RADHA (test code = RADHA) Fleet Manager/Dispatch ID - [id number] Lab Interpretation (test code = 76405-0) Normal [facility]TIGEN WITH HIV-1/2 [id number] 14:49:00* Test Item Value Reference Range Interpretation Comments HIV-1 ANTIGEN WITH HIV 1\\T\\2 ANTIBODY (2) (BEAKER) (te st code = 2586) Nonreactive Nonreactive Fleet Manager/Dispatch ID - [id number] 14:40:00* Test Item Value Reference Range Interpretation Comments LIPASE (BEAKER) (test code = 749) 27 U/L 6-51 Fleet Manager/Dispatch ID - [id number] FUNCTION [id number] 14:39:00* Test Item Value Reference Range Interpretation [...] 347) 11 U/L 5-50 Specimen moderately hemolyzed Fleet Manager/Dispatch ID - [id number] METABOLIC [id number] 14:38:00* Test Item Value Reference Range Interpretation [...] GFR IS NOT APPLICABLE FOR DIALYSIS PATIENTS. Fleet Manager/Dispatch ID - [id number] ACID, [id number] 14:36:00* Test Item Value Reference Range Interpretation Comments LACTATE BLOOD VENOUS (2) (BEAKER) (test code = 2872) 0.77 mmol/L 0 .50-2.00 Specimen markedly hemolyzed Fleet Manager/Dispatch ID - [id number] prep, [id number] 14:17:00* Test Item Value Reference Range Interpretation Comments WBC - wet prep (test code = 53487-9) Few white blood cells seen Clue cells - wet prep (test code = 57882-8) No clue cells seen Yeast - wet prep (test code = 23778-3) No budding yeast seen Trichomonas - wet prep (test code = 6565-6) No Trichomonas seen Bacteria - wet prep (test code = 08032-4) Moderate bacteria seen [facility] HospitalWET [id number] 14:17:00* Test Item Value Reference Range Interpretation [...] bacteria seen CBC W/PLT COUNT & AUTO [id number] 13:33:00* Test Item Value Reference Range Interpretation [...] % 0-0 U/S, PELVIS, WITH ENDOVAG AND [id number] 12:25:00Reason for exam:-> ABDOMINAL PAINReason for exam:->VAGINAL [...] cyst. Otherwise unremarkable study. Signed: Shiva Harrington Yasmin ified Date/Time: 09/24/2019 12:25:17 Reading Location: [facility] Radiology Reading Room pelvis with endovag with [id number] 12:25:00Interface, External Ris In - 09/24/2019 12:27 PM CSTFINAL REPORT PELVIC ULTRASOUND, WITH ENDOVAGINAL STUDY AND [...] right ovarian cyst. Otherwise unremarkable study. Signed: Shiva Harrington Verified Date/Time: 09/24/2019 12:25:17 Reading Location: [facility] Radiology Reading Room [facility] HospitalUrinalysis w/Microscopic + Reflex to [id number] 10:11:00* Test Item Value Reference Range Interpretation Comments Color, UA (test code = 5778-6) Yellow Clarity, UA (test code = 5767-9) Clear Specific [place], UA (test code = 5811-5) 1.010 1.001-1.035 pH, UA (test code = 5803-2) 6.0 5.0-8.0 Protein, UA (test code = 42546-1) Negative Negative Glucose, UA (test code = 365) Negative Negative Ketones, UA (test code = 2514-8) Negative Negative Bilirubin, UA (test code = 73486-0) Negative Negative Blood, UA (test code = 18468-7) Moderate Negative A Nitrite, UA (test code = 5802-4) Negative Negative Leukocytes, UA (test code = 5799-2) Negative Negative Urobilinogen, UA (test code = 59550-2) 0.2 mg/dL 0.2-1 Bacteria, UA (test code = 78688-8) Few RBC, UA (test code = 799-7) <5 /HPF WBC, UA (test code = 70138-7) <5 /HPF SQUAMOUS EPITHELIAL (test code = 81236-8) <5 /HPF Specimen Source (test code = 2795) Lab Interpretation (test code = 02074-7) Abnormal [facility] REFLEX URINE [id number] 10:11:00* Test Item Value Reference Range Interpretation [...] /HPF SOURCE(BEAKER) (test code = 2795) SCREEN, [id number] 10:05:00* Test Item Value Reference Range Interpretation Comments TEST URINE (BEAKER) (test code = 583) Negative Urine drugs of abuse [id number] 20:41:02* Test Item Value Reference Range Interpretation Comments Amphetamine screen, urine (test code = 3349-8) Positive A Barbiturate screen, urine (test code = 3377-9) Negative Benzodiazepine screen, urine (test code = 3390-2) Negative Cocaine screen, urine (test code = 3397-7) Positive A Methadone metabolite (EDDP), urine (test code = 20661-8) Negative Opiates screen, urine (test code = 3879-4) Negative Phencyclidine screen, urine (test code = 3936-2) Negative Tricyclic screen, urine (test code = 44223-8) Negative Cannabinoid screen, urine (test code = [...] is required. Lab Interpretation (test code = 58643-6) Abnormal Deric AmaralCT, [id number] 13:29:00FINAL REPORT CT of the abdomen and [...] seen right adnexal cystic structure. Signed: Sven Longoeport Verified Date/Time: 08/17/2019 13 :29:23 Reading Location: [address] Ortho Consult Reading Room [facility] signed by: SVEN LONGO M.D. on 08/17/2019 01:29 PM SCREEN, URINE 2019-08-17 12:40:00* Test Item Value Reference Range Interpretation Comments TEST URINE (BEAKER) (test code = 583) Negative HEPATIC FUNCTION [id number] 12:19:00* Test Item Value Reference Range Interpretation [...] 347) 16 U/L 5-50 Specimen moderately hemolyzed Fleet Manager/Dispatch ID - [id number] 12:15:00* Test Item Value Reference Range Interpretation Comments LIPASE (BEAKER) (test code = 749) 29 U/L 6-51 Fleet Manager/Dispatch ID - [id number] METABOLIC [id number] 12:12:00* Test Item Value Reference Range Interpretation [...] GFR IS NOT APPLICABLE FOR DIALYSIS PATIENTS. Fleet Manager/Dispatch ID - [id number] ACID, [id number] 12:07:00* Test Item Value Reference Range Interpretation Comments LACTATE BLOOD VENOUS (2) (BEAKER) (test code = 2872) 0.9 mmol/L 0 .5-2.0 Specimen moderately hemolyzed Fleet Manager/Dispatch ID - [id number] W/PLT COUNT & AUTO [id number] 11:52:00* Test Item Value Reference Range Interpretation [...] 0 % 0-0 Blood culture, aerobic & uurygasaf3284-76-07 03:03:06* Test Item Value Reference Range Interpretation Comments Blood culture isolate (test code = 600-7) No growth after 5 days of incubation. Specimen InformationSpecimen Source: BloodSpecimen Site: Antecubital, left [facility]Basic metabolic [id number] 06:01:21* Test Item Value Reference Range Interpretation Comments Sodium (test code = 2951-2) 137 135- 148 mEq/L Potassium (test code = 2823-3) 4.1 3.5- 5.0 mEq/L Chloride (test code = 2075-0) 109 98- 112 mEq/L CO2 (test code = 8-9) 20 24- 31 mEq/L L Anion gap (test code = 95070-7) 8@ANIO 7- 15 mEq/L BUN (test code = 3094-0) 10 mg/dL 6-20 Creatinine (test code = 2160-0) 0.67 mg/dL 0.5-0.9 Glucose (test code = 2345-7) 94 mg/dL 65-99 Calcium (test code = 39713-5) 8.3 mg/dL 8.3-10.2 Lab Interpretation (test code = 03106-4) Abnormal [place] MethodistLactic acid level, SEPSIS - Now and repeat 2x every 3 hours 2019-08-08 03:02:51* Test Item Value Reference Range Interpretation Comments Lactic acid (test code = 98729-4) 0.7 mmol/L 0.5-2.2 [place] MethodistU/S, PELVIS, WITH ENDOVAG AND [id number] 02:04:00Reason for exam:->abd pain; eval for torsionFINAL [...] for this finding is recommended. Signed: Leigh Pichardoort Verified Date/Time: 08/03/2019 02:04:08 , [id number] 23:51:00 Reason for exam:->lower abd pain, vomitingFINAL [...] the abdomen or pelvis. Signed: Jil Haines ort Verified Date/Time: 08/02/2019 23:51:24 REHENSIVE METABOLIC [...] GFR IS NOT APPLICABLE FOR DIALYSIS PATIENTS. [id number] 22:46:00* Test Item Value Reference Range Interpretation Comments LIPASE (BEAKER) (test code = 749) 31 U/L 6-51 URINALYSIS W/ [id number] 22:05:00* Test Item Value Reference Range Interpretation [...] 1661) <5 /HPF SOURCE(BEAKER) (test code = 2795) SQUAMOUS EPITHELIAL MANUAL (BEAKER) (test code = 1663) 50-100 /HPF This is an appended report. These results have been appended to a previously final verified report. SCREEN, [id number] 21:18:00* Test Item Value Reference Range Interpretation Comments TEST URINE (BEAKER) (test code = 583) Negative CBC W/PLT COUNT & AUTO [id number] 21:13:00* Test Item Value Reference Range Interpretation [...] (test code = 2801) 0 % 0-0 Manual Wzbfvytpurbv6984-97-20 20:16:00* Test Item Value Reference Range Interpretation Comments Total Counted (test code = 1351) WBC Morphology (test code = 487) Normal RBC Morphology (test code = 762) Normal Hypogranular Platelet (test code = 2157) Present [facility] W/PLT COUNT & AUTO [id number] 20:16:00* Test Item Value Reference Range Interpretation [...] (test code = 2157) Present COMPREHENSIVE METABOLIC [id number] 19:38:00* Test Item Value Reference Range Interpretation [...] GFR IS NOT APPLICABLE FOR DIALYSIS PATIENTS. [id number] 19:38:00* Test Item Value Reference Range Interpretation Comments LIPASE (BEAKER) (test code = 749) 22 U/L 6-51 URINALYSIS W/ [id number] 19:30:00* Test Item Value Reference Range Interpretation [...] 1663) 5-10 /HPF SOURCE(BEAKER) (test code = 2795) SCREEN, [id number] 19:22:00* Test Item Value Reference Range Interpretation Comments TEST URINE (BEAKER) (test code = 583) Negative - US PELVIC [id number] 15:20:00 Name: KENNETH PLATT [facility] : 1985 Age/S: 33 / F [address] Unit #: [id number] Loc: [place] [address] Phys: Mk Santos MD Acct: [id number] Dis Date: Status: REG ER PHONE #: [phone] Exam Date: 06/22/2019 0900 FAX #: Reason: pelvic pain EXAMS: CPT: [id number] US PELVIC COMPLETE [id number] Site ID: [id number] EXAMINATION: - US TRANSVAGINAL [...] GOTTI; Mk Santos MD Technologist: Filomena Bautista [facility] Date/Time: 06/22/2019 (1520) t.CARLR.TZS PAGE 1 Signed Report Name: KENNETH PLATTAsh [place] : 1985 Age/S: 33 / F [address] Unit #: [id number] Loc: [place] [address] Phys: Mk Santos MD Acct: [id number] Dis Date: Status: REG ER PHONE #: [phone] Exam Date: 06/22/2019 1453 FAX #: Reason: pelvic pain EXAMS: CPT: 04 [id number] US PELVIC COMPLETE 63159 < Continued> Orig Print D/T: S: 06/22/2019 (1523) Probe: PAGE 2 Signed Report - US TRANSVAGINAL NON [id number] 15:20:00 Name: KENNETH PLATT : 1985 Age/S: 33 / F [address] Unit #: [id number] [place] [address] Phys: Mk Santos MD Acct: [id number] Di s Date: Status: REG ER PHONE #: Exam Date: 06/22/2019 1455 FAX #: Reason: pelvic pain EXAMS: CPT: [id number] [place] [address] Site ID: [id number] EXAMINATION: - US TRANSVAGINAL [...] GOTTI; Mk Santos MD Technologist: Filomena Bautista [facility] Date/Time: 06/22/2019 (1520) CherTZS PAGE 1 Signed Report Name: KENNETH PLATT [facility] [place] : 1985 Age/S: 33 / F [address] Unit #: [id number] Loc: [place] [address] Phys: Mk Santos MD Acct: [id number] Dis Date: Status: REG ER PHONE #: [phone] Exam Date: 06/22/2019 1459 FAX #: Reason: pelvic pain EXAMS: CPT: 04 [id number] [place] [address] < Continued> Orig Print D/T: S: 06/22/2019 (1523) Probe: [id number] PAGE 2 Signed Report UA RFLX MICR CULT IF [id number] 14:19:00* Test Item Value Reference Range Interpretation [...] CATCHIndication for culture: Dysuria/FrequencyDRUGS OF ABUSE SCREEN [id number] 14:19:00* Test Item Value Reference Range Interpretation [...] URINE: CLEAN CATCHIndication for culture: Dysuria/FrequencyBASIC METABOLIC [id number] 14:14:00* Test Item Value Reference Range Interpretation [...] CA) 8.4 MG/DL 8.5-10.1 L HEPATIC FUNCTION [id number] 14:14:00* Test Item Value Reference Range Interpretation [...] code = ALKP) 54 Unit/L 45-117 N [id number] 14:14:00* Test Item Value Reference Range Interpretation Comments LIPASE (test code = LIP) 83 Unit/L 114-286 L CBC W/AUTO [id number] 14:08:00* Test Item Value Reference Range Interpretation [...] = MDIFF) NO DIFF/SCN CRITERIA BASIC METABOLIC [id number] 14:08:00* Test Item Value Reference Range Interpretation [...] CA) 8.4 MG/DL 8.5-10.1 L HEPATIC FUNCTION [id number] 14:08:00* Test Item Value Reference Range Interpretation [...] TOTAL (test code = ALKP) Unit/L 45-117 [id number] 14:08:00* Test Item Value Reference Range Interpretation Comments LIPASE (test code = LIP) 83 Unit/L 114-286 L UA RFLX MICR CULT IF [id number] 14:02:00* Test Item Value Reference Range Interpretation [...] CATCHIndication for culture: Dysuria/FrequencyDRUGS OF ABUSE SCREEN [id number] 14:02:00* Test Item Value Reference Range Interpretation [...] for culture: Dysuria/FrequencyUA RFLX MICR CULT IF [id number] 14:02:00* Test Item Value Reference Range Interpretation [...] CATCHIndication for culture: Dysuria/FrequencyDRUGS OF ABUSE SCREEN [id number] 14:02:00* Test Item Value Reference Range Interpretation [...] beresampled and retested after 48 hours Gram [id number] 05:46:53Gram stain resultNo WBC'sMany Gram variable rods Comment: Specimen InformationSpecimen Source: UrineSpecimen Site: Clean catch [facility] MethodistT4, [id number] 08:11:09* Test Item Value Reference Range Interpretation Comments T4, free (test code = 3024-7) 0.9 ng/dL 0.8-1.8 [facility] Hospital[facility] stimulating [id number] 08:11:09* Test Item Value Reference Range Interpretation Comments TSH (test code = 3016-3) 1.26 0.55- 4.78 uIU/mL [facility] Centeralicylate [id number] 15:31:38* Test Item Value Reference Range Interpretation Comments Salicylate (test code = 4024-6) <0.4 mg/dL Therapeutic Range: 5 - 30 mg/dL [place] MethodistAcetaminophen qvftg8849-73-69 15:31:37* Test Item Value Reference Range Interpretation Comments Acetaminophen level (test code = 3298-7) <15.9 ug/mL Therapeutic 10- 30 ug/mL Possible Toxicity 150-200 ug/mL Probable Toxicity >200 ug/mL [place] MethodistAlcohol level, [id number] 15:29:20* Test Item Value Reference Range Interpretation Comments Alcohol percent (test code = 5643-2) 0.014 % mg/dL Normal None DetectedLegal Intoxication in [place] 80 mg/dL (0.08%) - Whole BloodToxic Concentration 200 mg/dL (0.2%)Potentially Fatal 350 - 500 mg/dL (0.35 - 0.5%) [place] MethodistHemoglobin [id number] 10:07:24* Test Item Value Reference Range Interpretation Comments Hemoglobin A1C (test code = 14410-9) 4.6 % 4-5.6 HbA1c cutoffs for diagnosing diabetes:4.0% - 5.6% = normal5.7% - 6.4% = increased risk for diabetes (prediabetes) >=6.5% = diabetes Goals for glycemic control (ADA 2016)< 7.0% Target for non adults with diabetes. More or less stringent targets may be appropriate for individual patients. <7.5% Target for Children and adolescents with type 1 diabetes. [place] MethodistLipid [id number] 23:55:52* Test Item Value Reference Range Interpretation Comments Cholesterol (test code = 2093-3) 142 mg/dL <200 Triglycerides (test code = 2571-8) 110 mg/dL <150 HDL cholesterol (test code = 2085-9) 61 mg/dL >40 LDL cholesterol (test code = 2089-1) 68 mg/dL <100 Result obtained by direct LDL measurement Lipid panel interpretation (test code = 83922-0) SeeBelow Total Cholesterol (mg/dL) <200 Desirable 200-239 [...] mg/dL) Deric AmaralU/S, PELVIS, WITH ENDOVAG AND [id number] 02:58:00Reason for exam:->PELVIC PAINFINAL REPORT U/S, PELVIS, [...] sonographic examination of the pelvis. Signed: Jil Haineshospital for special care Verified Date/Time: 04/17/2019 02:58:04 EN, [id number] 02:11:00* Test Item Value Reference Range Interpretation Comments TEST URINE (BEAKER) (test code = 583) Negative URINALYSIS W/ [id number] 02:03:00* Test Item Value Reference Range Interpretation [...] 1663) 10-20 /HPF SOURCE(BEAKER) (test code = 6515) WET [id number] 01:07:00* Test Item Value Reference Range Interpretation [...] = 532) Few bacteria seen COMPREHENSIVE METABOLIC [id number] 23:43:00* Test Item Value Reference Range Interpretation [...] GFR IS NOT APPLICABLE FOR DIALYSIS PATIENTS. [id number] 23:43:00* Test Item Value Reference Range Interpretation Comments LIPASE (BEAKER) (test code = 749) 14 U/L 6-51 CBC W/PLT COUNT & AUTO [id number] 23:28:00* Test Item Value Reference Range Interpretation [...] (test code = 2801) 0 % 0-0 [id number] 16:59:00* Test Item Value Reference Range Interpretation Comments LIPASE (BEAKER) (test code = 749) 71 U/L 40-240 BASIC METABOLIC [id number] 16:59:00* Test Item Value Reference Range Interpretation [...] NOT APPLICABLE FOR DIALYSIS PATIENTS. HEPATIC FUNCTION [id number] 16:59:00* Test Item Value Reference Range Interpretation [...] (test code = 347) 24 U/L 5-50 Blood gas, [id number] 16:53:00* Test Item Value Reference Range Interpretation Comments pH, Erasmo (test code = 2746-6) 7.37 7.32-7.42 pCO2, Erasmo (test code = 755) 46 41- 51 mm Hg pO2, Erasmo (test code = 2705-2) 38 25- 40 mm Hg O2 Sat, Erasmo (test code = 2711-0) 69.9 % 40-70 HCO3, Erasmo (test code = 39129-7) 26 mmol/L 21-29 Base Excess, Erasmo (test code = 1927-3) 0.1 mmol/L -2-3 Patient Temperature (test code = 8310-5) 37.0 FIO2 (test code = 1819) 21 [facility], [id number] 16:53:00* Test Item Value Reference Range Interpretation [...] (test code = 1819) 21 LACTIC ACID, [id number] 16:53:00* Test Item Value Reference Range Interpretation Comments LACTATE BLOOD VENOUS (2) (BEAKER) (test code = 2872) 0.7 mmol/L 0 .5-2.2 CBC W/PLT COUNT & AUTO [id number] 16:45:00* Test Item Value Reference Range Interpretation [...] 0.04 K/ L 0. 00-0.20 URINALYSIS W/ [id number] 16:19:00* Test Item Value Reference Range Interpretation [...] Few RBC UA-MANUAL (BEAKER) (test code = 9029) <5 /HPF WBC UA-MANUAL (BEAKER) (test code = 1661) 5-10 /HPF SQUAMOUS EPITHELIAL MANUAL (BEAKER) (test code = 1663) 20-50 /HPF CLUE CELLS SEEN. SOURCE(BEAKER) (test code = 2795) CLUE CELLS SEEN. SCREEN, [id number] 16:12:00* Test Item Value Reference Range Interpretation Comments TEST URINE (BEAKER) (test code = 583) Negative GLUCOSE BEDSIDE [id number] 08:34:00* Test Item Value Reference Range Interpretation Comments GLUCOSE BEDSIDE TESTING (test code = GLUBED) 68 mg/dL 70-110 L BASIC METABOLIC [id number] 06:45:00* Test Item Value Reference Range Interpretation [...] CA) 7.9 MG/DL 8.5-10.1 L CBC W/AUTO [id number] 06:33:00* Test Item Value Reference Range Interpretation [...] = MDIFF) NO DIFF/SCN CRITERIA GLUCOSE BEDSIDE [id number] 17:47:00* Test Item Value Reference Range Interpretation Comments GLUCOSE BEDSIDE TESTING (test code = GLUBED) 93 mg/dL 70-110 N GLUCOSE BEDSIDE [id number] 16:55:00* Test Item Value Reference Range Interpretation Comments GLUCOSE BEDSIDE TESTING (test code = GLUBED) 60 mg/dL 70-110 L GLUCOSE BEDSIDE [id number] 12:21:00* Test Item Value Reference Range Interpretation Comments GLUCOSE BEDSIDE TESTING (test code = GLUBED) 71 mg/dL 70-110 N GLUCOSE BEDSIDE [id number] 08:42:00* Test Item Value Reference Range Interpretation Comments GLUCOSE BEDSIDE TESTING (test code = GLUBED) 72 mg/dL 70-110 N BASIC METABOLIC [id number] 07:31:00* Test Item Value Reference Range Interpretation [...] CA) 8.1 MG/DL 8.5-10.1 L CBC W/AUTO [id number] 07:19:00* Test Item Value Reference Range Interpretation [...] = MDIFF) NO DIFF/SCN CRITERIA GLUCOSE BEDSIDE [id number] 20:50:00* Test Item Value Reference Range Interpretation Comments GLUCOSE BEDSIDE TESTING (test code = GLUBED) 109 mg/dL 70-110 N GLUCOSE BEDSIDE [id number] 16:51:00* Test Item Value Reference Range Interpretation Comments GLUCOSE BEDSIDE TESTING (test code = GLUBED) 83 mg/dL 70-110 N GLUCOSE BEDSIDE [id number] 12:21:00* Test Item Value Reference Range Interpretation Comments GLUCOSE BEDSIDE TESTING (test code = GLUBED) 85 mg/dL 70-110 N BASIC METABOLIC [id number] 11:44:00* Test Item Value Reference Range Interpretation [...] CA) 8.2 MG/DL 8.5-10.1 L GLUCOSE BEDSIDE [id number] 08:26:00* Test Item Value Reference Range Interpretation Comments GLUCOSE BEDSIDE TESTING (test code = GLUBED) 90 mg/dL 70-110 N COMPREHENSIVE METABOLIC [id number] 07:31:00* Test Item Value Reference Range Interpretation [...] ALKP) 50 Unit/L 45-117 N GLUCOSE BEDSIDE [id number] 20:15:00* Test Item Value Reference Range Interpretation Comments GLUCOSE BEDSIDE TESTING (test code = GLUBED) 89 mg/dL 70-110 N GLUCOSE BEDSIDE [id number] 16:44:00* Test Item Value Reference Range Interpretation Comments GLUCOSE BEDSIDE TESTING (test code = GLUBED) 76 mg/dL 70-110 N GLUCOSE BEDSIDE [id number] 11:53:00* Test Item Value Reference Range Interpretation Comments GLUCOSE BEDSIDE TESTING (test code = GLUBED) 90 mg/dL 70-110 N GLUCOSE BEDSIDE [id number] 07:50:00* Test Item Value Reference Range Interpretation Comments GLUCOSE BEDSIDE TESTING (test code = GLUBED) 99 mg/dL 70-110 N GLUCOSE BEDSIDE [id number] 20:46:00* Test Item Value Reference Range Interpretation Comments GLUCOSE BEDSIDE TESTING (test code = GLUBED) 124 mg/dL 70-110 H GLUCOSE BEDSIDE [id number] 17:04:00* Test Item Value Reference Range Interpretation Comments GLUCOSE BEDSIDE TESTING (test code = GLUBED) 98 mg/dL 70-110 N GLUCOSE BEDSIDE [id number] 11:44:00* Test Item Value Reference Range Interpretation Comments GLUCOSE BEDSIDE TESTING (test code = GLUBED) 70 mg/dL 70-110 N GLUCOSE BEDSIDE [id number] 08:07:00* Test Item Value Reference Range Interpretation Comments GLUCOSE BEDSIDE TESTING (test code = GLUBED) 108 mg/dL 70-110 N BASIC METABOLIC [id number] 05:21:00* Test Item Value Reference Range Interpretation [...] CA) 8.0 MG/DL 8.5-10.1 L CBC W/AUTO [id number] 05:09:00* Test Item Value Reference Range Interpretation [...] = MDIFF) NO DIFF/SCN CRITERIA GLUCOSE BEDSIDE [id number] 20:47:00* Test Item Value Reference Range Interpretation Comments GLUCOSE BEDSIDE TESTING (test code = GLUBED) 88 mg/dL 70-110 N GLUCOSE BEDSIDE [id number] 16:59:00* Test Item Value Reference Range Interpretation Comments GLUCOSE BEDSIDE TESTING (test code = GLUBED) 72 mg/dL 70-110 N TRICYCLICS BY HPLC, ID [id number] 15:31:00* Test Item Value Reference Range Interpretation [...] None Detected ng/mL Not Estab. GLUCOSE BEDSIDE [id number] 08:44:00* Test Item Value Reference Range Interpretation Comments GLUCOSE BEDSIDE TESTING (test code = GLUBED) 88 mg/dL 70-110 N TRICYCLICS BY HPLC, ID [id number] 06:09:00* Test Item Value Reference Range Interpretation [...] None Detected ng/mL Not Estab. GLUCOSE BEDSIDE [id number] 20:56:00* Test Item Value Reference Range Interpretation Comments GLUCOSE BEDSIDE TESTING (test code = GLUBED) 70 mg/dL 70-110 N GLUCOSE BEDSIDE [id number] 18:11:00* Test Item Value Reference Range Interpretation Comments GLUCOSE BEDSIDE TESTING (test code = GLUBED) 90 mg/dL 70-110 N GLUCOSE BEDSIDE [id number] 12:41:00* Test Item Value Reference Range Interpretation Comments GLUCOSE BEDSIDE TESTING (test code = GLUBED) 90 mg/dL 70-110 N GLUCOSE BEDSIDE [id number] 08:10:00* Test Item Value Reference Range Interpretation Comments GLUCOSE BEDSIDE TESTING (test code = GLUBED) 102 mg/dL 70-110 N GLUCOSE BEDSIDE [id number] 00:58:00* Test Item Value Reference Range Interpretation Comments GLUCOSE BEDSIDE TESTING (test code = GLUBED) 105 mg/dL 70-110 N GLUCOSE BEDSIDE [id number] 20:36:00* Test Item Value Reference Range Interpretation Comments GLUCOSE BEDSIDE TESTING (test code = GLUBED) 128 mg/dL 70-110 H GLUCOSE BEDSIDE [id number] 17:10:00* Test Item Value Reference Range Interpretation Comments GLUCOSE BEDSIDE TESTING (test code = GLUBED) 111 mg/dL 70-110 H GLUCOSE BEDSIDE [id number] 09:10:00* Test Item Value Reference Range Interpretation Comments GLUCOSE BEDSIDE TESTING (test code = GLUBED) 104 mg/dL 70-110 N COMPREHENSIVE METABOLIC [id number] 07:10:00* Test Item Value Reference Range Interpretation [...] ALKP) 53 Unit/L 45-117 N CBC W/AUTO [id number] 07:02:00* Test Item Value Reference Range Interpretation [...] = MDIFF) NO DIFF/SCN CRITERIA GLUCOSE BEDSIDE [id number] 04:54:00* Test Item Value Reference Range Interpretation Comments GLUCOSE BEDSIDE TESTING (test code = GLUBED) 100 mg/dL 70-110 N GLUCOSE BEDSIDE [id number] 00:52:00* Test Item Value Reference Range Interpretation Comments GLUCOSE BEDSIDE TESTING (test code = GLUBED) 98 mg/dL 70-110 N GLUCOSE BEDSIDE [id number] 20:16:00* Test Item Value Reference Range Interpretation Comments GLUCOSE BEDSIDE TESTING (test code = GLUBED) 107 mg/dL 70-110 N GLUCOSE BEDSIDE [id number] 16:56:00* Test Item Value Reference Range Interpretation Comments GLUCOSE BEDSIDE TESTING (test code = GLUBED) 101 mg/dL 70-110 N COMPREHENSIVE METABOLIC [id number] 15:40:00* Test Item Value Reference Range Interpretation [...] ALKP) 58 Unit/L 45-117 N CBC W/AUTO [id number] 13:23:00* Test Item Value Reference Range Interpretation [...] code = MDIFF) DIFF/SCN CRITERIA CBC W/AUTO [id number] 13:23:00* Test Item Value Reference Range Interpretation [...] = MDIFF) NO DIFF/SCN CRITERIA GLUCOSE BEDSIDE [id number] 12:21:00* Test Item Value Reference Range Interpretation Comments GLUCOSE BEDSIDE TESTING (test code = GLUBED) 105 mg/dL 70-110 N - CT HEAD/BRAIN W/O [id number] 11:03:00 Name: GIULIAKENNETH [facility] : 1985 Age/S: 33 / F [address] [address] Unit #: [id number] Loc: [place] [address] Phys: Supa Stroud MD Acct: [id number] Dis Date: Status: ADM IN PHONE #: [phone] Exam Date: 03/06/2019 1042 FAX #: Reason: AMS EXAMS: CPT: [id number] CT HEAD/BRAIN W/O CONT 41030 EXAM: - CT HEAD/BRAIN W/O CONT Location [...] PLATT : 1985 Age/S: 33 / F [address] [address] Un it #: [id number] Loc: [place] [address] Phys: Supa Stroud MD Acct: [id number] Dis Date: Status: ADM IN PHONE #: [phone] Exam Date: 03/06/2019 1047 FAX #: Reason: AMS E XAMS: CPT: [id number] CT HEAD/BRAIN W/O CONT 02658 <Continued> CC: Ramone Bang MD; Supa Stroud MD Technologist:BEATRIZ SCHULTZ, RT(R)(CT)(MR) CTDI: DLP: Trnscb Date/Time: 03/06/2019 (1103) t.SDR.CB5 Orig Print D/T: S: 03/06/2019 (1106) PAGE 2 Signed Report GLUCOSE BEDSIDE [id number] 07:53:00* Test Item Value Reference Range Interpretation Comments GLUCOSE BEDSIDE TESTING (test code = GLUBED) 93 mg/dL 70-110 N GLUCOSE BEDSIDE [id number] 04:49:00* Test Item Value Reference Range Interpretation Comments GLUCOSE BEDSIDE TESTING (test code = GLUBED) 87 mg/dL 70-110 N GLUCOSE BEDSIDE [id number] 00:27:00* Test Item Value Reference Range Interpretation Comments GLUCOSE BEDSIDE TESTING (test code = GLUBED) 132 mg/dL 70-110 H BASIC METABOLIC [id number] 22:35:00* Test Item Value Reference Range Interpretation [...] CA) 8.3 MG/DL 8.5-10.1 L GLUCOSE BEDSIDE [id number] 21:02:00* Test Item Value Reference Range Interpretation Comments GLUCOSE BEDSIDE TESTING (test code = GLUBED) 99 mg/dL 70-110 N GLUCOSE BEDSIDE [id number] 16:46:00* Test Item Value Reference Range Interpretation Comments GLUCOSE BEDSIDE TESTING (test code = GLUBED) 127 mg/dL 70-110 H GLUCOSE BEDSIDE [id number] 15:33:00* Test Item Value Reference Range Interpretation Comments GLUCOSE BEDSIDE TESTING (test code = GLUBED) 55 mg/dL 70-110 L COMPREHENSIVE METABOLIC [id number] 13:49:00* Test Item Value Reference Range Interpretation [...] L Last Dose Date: 03/05/19 Dose Time: [id number] 13:49:00* Test Item Value Reference Range Interpretation Comments ACETAMINOPHEN (test code = ACET) 7.5 mcG/ML 10.0-30.0 L Last Dose Date: 03/05/19 Dose Time: 1146TRICYCLICS [id number] 13:49:00* Test Item Value Reference Range Interpretation Comments TRICYCLICS UR (test code = TRIUR) SCREEN NONE DET Last Dose Date: 03/05/19 Dose Time: [id number] 13:45:00* Test Item Value Reference Range Interpretation Comments SALICYLATE (test code = NATALI) 1.9 MG/DL 2.8-20.0 THER L UA RFLX MICR CULT IF [id number] 13:36:00* Test Item Value Reference Range Interpretation [...] CATCHIndication for culture: Dysuria/FrequencyDRUGS OF ABUSE SCREEN [id number] 13:36:00* Test Item Value Reference Range Interpretation [...] URINE: CLEAN CATCHIndication for culture: Dysuria/FrequencyCBC W/AUTO [id number] 13:16:00* Test Item Value Reference Range Interpretation [...] DIFF/SCN CRITERIA UA RFLX MICR CULT IF [id number] 13:15:00* Test Item Value Reference Range Interpretation [...] CATCHIndication for culture: Dysuria/FrequencyDRUGS OF ABUSE SCREEN [id number] 13:15:00* Test Item Value Reference Range Interpretation [...] for culture: Dysuria/FrequencyUA RFLX MICR CULT IF [id number] 13:14:00* Test Item Value Reference Range Interpretation [...] CATCHIndication for culture: Dysuria/FrequencyDRUGS OF ABUSE SCREEN [id number]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 Item Value Reference Range Interpretation [...] race is not provided, and the patient isAfrican-Cam[place]onian, multiply by 1.212. If sex is not [...] by the National Kidney Found ation,http://nkdep.nih.gov Troponin [id number] 07:25:00* Test Item Value Reference Range Interpretation Comments Troponin T (test code = CARRIE) <0.010 ng/mL 0.000-0.090 N D-Dimer, [id number] 06:59:00* Test Item Value Reference Range Interpretation Comments D-Dimer, Quant (test code = DDQNT) 1302 ng/mL 0-500 H Prothrombin [id number] 06:56:00* Test Item Value Reference Range Interpretation Comments PT (test code = PT) 11.30 seconds 9.78-13.35 N INR (test code = INR) 0.99 Ratio 0.6-1.2 N Partial Thromboplastin [id number] 06:56:00* Test Item Value Reference Range Interpretation Comments aPTT (test code = PTT) 30.80 seconds 24.39-37.25 N CBC with [id number] 06:47:00* Test Item Value Reference Range Interpretation [...] code = ALYMPH) 1.5 K/cumm 0.5-4.6 N [place] Abs (test code = AMONO) 0.6 K/cumm 0.0-1.2 N Eos Abs (test code = AEOS) 0.15 K/cumm 0.00-0.74 N Baso Abs (test code = ABASO) 0.0 K/cumm 0.00-0.21 N Sed Rate ESR ([place])2016-10-13 12:37:00* Test Item Value Reference Range Interpretation Comments ESR (test code = HESR) 52 mm/Hr 0-20 H Comprehensive Metabolic [id number] 09:23:00* Test Item Value Reference Range Interpretation [...] race is not provided, and the patient isAfrican-[place]onian, multiply by 1.212. If sex is not [...] by the National Kidney Found ation,http://nkdep.nih.gov Vancomycin, [id number] 09:21:00* Test Item Value Reference Range Interpretation Comments Orlando Jones (test code = VANTR) <1.7 ug/mL 10.0-20.0 L Culture, [id number] 09:03:00Specimen: UrineCollected: 10/11/2016 10:55 Status: Final Last Updated: 10/13/2016 09:03 Culture Result (Final) (Final) 10/12/16 No growth 24 hours 10/13/2016 No growth 48 hours CBC with [id number] 08:34:00* Test Item Value Reference Range Interpretation [...] code = ALYMPH) 1.2 K/cumm 0.5-4.6 N [place] Abs (test code = AMONO) 0.5 K/cumm 0.0-1.2 N Eos Abs (test code = AEOS) 0.14 K/cumm 0.00-0.74 N Baso Abs (test code = ABASO) 0.0 K/cumm 0.00-0.21 N RPR, [id number] 19:58:00* Test Item Value Reference Range Interpretation Comments RPR (test code = RPR) Non-Reactive Non-Reactive N Rubella [id number] 05:46:00* Test Item Value Reference Range Interpretation Comments Rubella IgG (test code = RUBELIGG) Immune Immune N RPR, [id number] 05:46:00* Test Item Value Reference Range Interpretation Comments RPR (test code = RPR) Non-Reactive Non-Reactive N HIV [id number] 15:43:00* Test Item Value Reference Range Interpretation Comments HIV 1/2 Antibody (test code = HIV1/2AB) Non-Reactive Non-Reactive N HIV1/2 Antibody screen result indicates the absence of HIV1 and DRY6lsinlbcou.However, A Non-Reactive screen result does not rule [...] RNA Quantitative is recommended. Antibody Screen - [id number] 13:41:00* Test Item Value Reference Range Interpretation Comments Antibody Screen (test code = ABSCR) Negative Hep B Surface [id number] 12:19:00* Test Item Value Reference Range Interpretation Comments Hep Bs Ag (test code = HBSAG) Nonreactive Non-Reactive A [id number] 12:04:00* Test Item Value Reference Range Interpretation [...] = THC) Negative Negative N Comprehensive Metabolic [id number] 12:04:00* Test Item Value Reference Range Interpretation [...] race is not provided, and the patient isAfrican-Cam[place]onian, multiply by 1.212. If sex is not [...] National Kidney Found ation,http://nkdep.nih.gov Blood Type and [id number] 11:51:00* Test Item Value Reference Range Interpretation Comments ABO type (test code = ABO) O Rh Type (test code = RH) Negative Urinalysis [id number] 11:41:00* Test Item Value Reference Range Interpretation Comments Color (test code = COLOR) Yellow Yellow,Straw,Pl yellow N Clarity (test code = CLAR) Sl Cloudy Clear A Specific [place] (test code = SPGR) 1.016 1.001-1.035 N [...] code = MEXAM) Not indicated CBC with [id number] 11:37:00* Test Item Value Reference Range Interpretation [...] code = ALYMPH) 1.3 K/cumm 0.5-4.6 N [place] Abs (test code = AMONO) 0.5 K/cumm 0.0-1.2 N Eos Abs (test code = AEOS) 0.13 K/cumm 0.00-0.74 N Baso Abs (test code = ABASO) 0.0 K/cumm 0.00-0.21 N
[2020-04-08] MEDS ORDERED: PREDNISONE20 MG PO (01:29)
[2020-04-08] MEDS ORDERED: TYLENOL # 31 EA PO (01:29)
[2020-04-08] MEDS ORDERED: PHENERGAN SUPP25 MG PR (01:29)
--- NOTE | 2020-04-08 01:29 | Emergency Department Note ---
History of Present Illnes History of Present Illness Chief Complaint: sickle cell crisis History of Present Illness This is a 34 year old female. was doing well prior to this. then abdominal pain, n,v. 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 Onset (how long ago): week(s) (3) Location: see above Quality: sharp Radiation: Reports non-radiation Severity: moderate Onset quality: gradual Timing of current episode: constant Progression: unchanged Context: Denies recent illness, Denies recent surgery, Denies recent immobilization, Denies recent travel, Denies trauma/injury, Denies new medications, Denies non-compliance w/ medications Relieving factors: none Exacerbating factors: movement Associated symptoms: Reports nausea/vomiting Treatments prior to arrival: none Past Medical/Family History Physician Review I have reviewed the patient's past medical and family history. Any updates have been documented here. Past Medical History Recent Fever: No Clinical Suspicion of Infectio: No New/Unexplained Change in Ment: No Past Medical History: UTI's Other Medical History: "colitis", sickle cell anemia, osteomyelitis. Past Surgical History: Other Surgery: Osteomyelitis Social History Smoking Cessation: Never Smoker Counseling Performed: No Any Illegal Drug Use: No TB Exposure/Symptoms: No Physically hurt or threatened: No Family History Family history of heart diseas: No Other Last Tetanus: UTD Any Pre-Existing Lines (PICC,: No Is patient up to date on immun: No Review of Systems Review of Systems Constitutional: Reports no symptoms EENTM: Reports no symptoms Cardiovascular: Reports no symptoms Respiratory: Reports no symptoms Gastrointestinal: Reports as per HPI, Reports abdominal pain Genitourinary: Reports no symptoms Musculoskeletal: Reports no symptoms Integumentary: Reports no symptoms Neurological: Reports no symptoms Psychological: Reports no symptoms Endocrine: Reports no symptoms Hematological/Lymphatic: Reports no symptoms Review of other systems: All other systems negative Physical Exam Related Data Allergies: Coded Allergies: Penicillins (Verified Allergy, Severe, 12/30/19) ondansetron (Verified Allergy, Severe, 12/30/19) phenazopyridine (Verified Allergy, Severe, 12/30/19) NSAIDS (Non-Steroidal Anti-Inflamma (Verified Allergy, Intermediate, 12/30/19) tramadol (Verified Allergy, Intermediate, 12/30/19) Vital signs reviewed: Yes Physical Exam CONSTITUTIONAL Constitutional: Present well-developed, Present well-nourished HENT HENT: Present normocephalic, Present atraumatic, Present oropharynx clear/moist, Present nose normal HENT L/R: Present left ext ear normal, Present right ext ear normal EYES Eyes: Reports PERRL, Reports conjunctivae normal NECK Neck: Present ROM normal, Present supple PULMONARY Pulmonary: Present effort normal, Present breath sounds normal CARDIOVASCULAR Cardiovascular: Present regular rhythm, Present heart sounds normal, Present capillary refill normal, Present normal rate GASTROINTESTINAL Abdominal: Present soft, Present nontender, Present bowel sounds normal GENITOURINARY Genitourinary: Present exam deferred SKIN Skin: Present warm, Present dry MUSCULOSKELETAL Musculoskeletal: Present ROM normal NEUROLOGICAL Neurological: Present alert, Present oriented x 3, Present no gross motor or sensory deficits PSYCHOLOGICAL Psychological: Present mood/affect normal, Present judgement normal Critical Care Time Comments [place] [employer] overdose risk score= 644 Assessment & Plan Medical Decision Making MDM see below Reassessment Reassessment no more pain,n,v s/p meds Assessment & Plan Final Impression: (1) Sickle cell crisis Depart Disposition: HOME, SELF-detention Meds Active Scripts Prednisone (PREDNISONE) 20 Mg Tab, 60 MG PO DAILY PRN for MODERATE PAIN (4-6), #15 TAB take 3 20 mg pills at once Prov:MAITE HOOKER 04/08/20 Acetaminophen/Codeine* (TYLENOL # 3*) 1 Ea Tab, 1 TAB PO Q4HR PRN for MODERATE PAIN (4-6), #30 TAB take after prednisone to control pain Prov:MAITE HOOKER 04/08/20 Promethazine Hcl* (PHENERGAN SUPP*) 25 Mg Supp, 50 MG CA Q6H PRN for NAUSEA AND VOMITING, #30 SUPP.RECT 1 Refill take 2 25 mg suppossitories at once Prov:MIATE HOOKER 04/08/20 Acetaminophen With Codeine (TYLENOL WITH CODEINE #3 TABLET) 1 Each Tablet, 300 MG PO Q6H PRN for ABDOMINAL PAIN, #10 TAB Prov:LOLY HILARIO MD 02/28/20 Acetaminophen With Codeine (TYLENOL WITH CODEINE #3 TABLET) 1 Each Tablet, 300 MG PO QID PRN for pain for 3 Days, #12 TAB Prov:ED WAGNER MD 12/01/19 Promethazine Hcl (PHENADOZ) 25 Mg Supp.rect, 25 MG RC TID PRN for nausea, vomiting for 5 Days, #15 Prov:ED WAGNER MD 12/01/19 Sulfamethoxazole/Trimethoprim (BACTRIM DS TABLET) 1 Each Tablet, 1 EACH PO BID for 7 Days, #14 Prov:ED WAGNER MD 12/01/19 Medications in the ED Promethazine HCl 25 mg ONCE ONCE IM ; Start 04/08/20 at 00:45; Stop 04/08/20 at 00:46; Status DC Morphine Sulfate 8 mg ONCE STAT IM ; Start 04/08/20 at 00:42; Stop 04/08/20 at 00:53; Status DC Promethazine HCl 25 mg STK-MED ONCE IM ; Start 04/08/20 at 00:53; Stop 04/08/20 at 00:48; Status DC MAITE HOOKER Apr 08, 2020 01:29
== END 2020-04-08 01:30 | disposition home or self-care (01) ==
LOC: FSED 04-08 00:30
DX: D57.00 Hb-SS disease with crisis, unspecified (principal)
CPT/HCPCS: 99282; J2270; J2550

== ENCOUNTER 2020-05-01 23:02 | Emergency (ER) | payer SELFPAY ==
[~2020-05-01] VITALS: Ht 165.1 cm; Wt 68.0 kg
[~2020-05-01 23:02] MED LIST changes: +PHENERGAN SUPP25 MG PR; +PREDNISONE20 MG PO; +TYLENOL # 31 EA PO
[2020-05-01] MEDS ORDERED: PHENERGAN SUPP25 MG PR (23:19)
--- NOTE | 2020-05-01 23:20 | Emergency Department Note ---
History of Present Illnes History of Present Illness Chief Complaint: Abdominal Complaints History of Present Illness This is a 34 year old female c/o mid abd pain, nausea vomiting today, ran out of her pain meds. Patient declines labs and CT scan as " I have had too many labs and Ct scan done already". she asks for pain meds and nausea meds. Arrival Mode: Car Geospatial Analyst Required: No Onset (how long ago): day(s) Radiation: Reports non-radiation Onset quality: gradual Duration (how long): day(s) Progression: waxing and waning Relieving factors: none Exacerbating factors: none Associated symptoms: Reports denies other symptoms Treatments prior to arrival: none Previous service: medications given, tests performed Past Medical/Family History Physician Review I have reviewed the patient's past medical and family history. Any updates have been documented here. Past Medical History Recent Fever: No Clinical Suspicion of Infectio: No New/Unexplained Change in Ment: No Past Medical History: UTI's Other Medical History: "colitis" sickle cell anemia osteomyelitis. Past Surgical History: Other Surgery: Osteomyelitis Social History Smoking Cessation: Unknown if ever smoked Any Illegal Drug Use: No TB Exposure/Symptoms: No Physically hurt or threatened: No Other Last Tetanus: UTD Review of Systems Review of Systems Constitutional: Reports as per HPI EENTM: Reports no symptoms Cardiovascular: Reports no symptoms Respiratory: Reports no symptoms Gastrointestinal: Reports abdominal pain, Reports nausea, Reports vomiting Genitourinary: Reports no symptoms Musculoskeletal: Reports no symptoms Integumentary: Reports no symptoms Neurological: Reports no symptoms Psychological: Reports no symptoms Endocrine: Reports no symptoms Hematological/Lymphatic: Reports no symptoms Physical Exam Related Data Allergies: Coded Allergies: Penicillins (Verified Allergy, Severe, 12/30/19) ondansetron (Verified Allergy, Severe, 12/30/19) phenazopyridine (Verified Allergy, Severe, 12/30/19) NSAIDS (Non-Steroidal Anti-Inflamma (Verified Allergy, Intermediate, 12/30/19) tramadol (Verified Allergy, Intermediate, 12/30/19) Vital signs reviewed: Yes (tachy) Physical Exam CONSTITUTIONAL Constitutional: Present well-developed, Present well-nourished HENT HENT: Present normocephalic, Present atraumatic, Present oropharynx clear/moist, Present nose normal HENT L/R: Present left ext ear normal, Present right ext ear normal EYES Eyes: Reports PERRL, Reports conjunctivae normal NECK Neck: Present ROM normal PULMONARY Pulmonary: Present effort normal, Present breath sounds normal CARDIOVASCULAR Cardiovascular: Present regular rhythm, Present heart sounds normal, Present capillary refill normal, Present normal rate, Present tachycardia GASTROINTESTINAL Abdominal: Present soft, Present nontender, Present bowel sounds normal GENITOURINARY Genitourinary: Present exam deferred SKIN Skin: Present warm, Present dry MUSCULOSKELETAL Musculoskeletal: Present ROM normal NEUROLOGICAL Neurological: Present alert, Present oriented x 3, Present no gross motor or sensory deficits PSYCHOLOGICAL Psychological: Present mood/affect normal, Present judgement normal Assessment & Plan Medical Decision Making MDM sickle cell pain gastritis, drug seeking behavior Reassessment Reassessment doing better after IM pain meds, her boyfriend is here to pick her up Assessment & Plan Final Impression: (1) GENERALIZED ABDOMINAL PAIN (2) NAUSEA WITH VOMITING, UNSPECIFIED Depart Disposition: HOME, SELF-[facility] Meds Active Scripts Promethazine Hcl* (PHENERGAN SUPP*) 25 Mg Supp, 50 MG VT Q6H PRN for NAUSEA AND VOMITING, #30 SUPP.RECT 1 Refill take 2 25 mg suppossitories at once Prov:SANDOVAL SESAY MD 05/01/20 Prednisone (PREDNISONE) 20 Mg Tab, 60 MG PO DAILY PRN for MODERATE PAIN (4-6), #15 TAB take 3 20 mg pills at once Prov:MAITE HOOKER 04/08/20 Acetaminophen/Codeine* (TYLENOL # 3*) 1 Ea Tab, 1 TAB PO Q4HR PRN for MODERATE PAIN (4-6), #30 TAB take after prednisone to control pain Prov:MAITE HOOKER 04/08/20 Acetaminophen With Codeine (TYLENOL WITH CODEINE #3 TABLET) 1 Each Tablet, 300 MG PO Q6H PRN for ABDOMINAL PAIN, #10 TAB Prov:LOLY HILARIO MD 02/28/20 Acetaminophen With Codeine (TYLENOL WITH CODEINE #3 TABLET) 1 Each Tablet, 300 MG PO QID PRN for pain for 3 Days, #12 TAB Prov:ED WAGNER MD 12/01/19 Promethazine Hcl (PHENADOZ) 25 Mg Supp.rect, 25 MG RC TID PRN for nausea, vomiting for 5 Days, #15 Prov:ED WAGNER MD 12/01/19 Sulfamethoxazole/Trimethoprim (BACTRIM DS TABLET) 1 Each Tablet, 1 EACH PO BID for 7 Days, #14 Prov:ED WAGNER MD 12/01/19 Medications in the ED morphine and Phenergan IM Physician Attestation Provider Attestation likely chronic pain with drug seeking behavior. I would limit her to one round of IM medications, given her benefit of doubt. SANDOVAL SESAY MD May 01, 2020 23:20
[2020-05-01] MEDS ORDERED: PROMETHAZINE HCL (IM) 25 MG/ML VIAL IM ONE ×2 (23:25→23:30)
[2020-05-01] MEDS ORDERED: MORPHINE SULFATE INJ 4 MG/ML INJ 1ML ONE (23:26)
[2020-05-01] MEDS ORDERED: MORPHINE SULFATE INJ 4 MG/ML INJ 1ML IM ONE (23:30)
--- OUTSIDE RECORDS SUMMARY | 2020-05-01 23:49 | XMS REPORT | Clinical Summary ---
Author Author [facility] Organization Lorman [facility] Address Unknown Phone Unavailable Care Team Providers Care Automatic Data Processing Planner Name Role Phone Philip Mcclain MD PCP Allergies Comments Active Allergy Reactions Severity Noted Date Nsaids (Non-Steroidal Anaphylaxis High 05/07/20 16 Anti-Inflammatory Drug) Pt reports she could not take antipsychotics Other Other (See 04/12/2020 Comments) Penicillins Anaphylaxis High 04/09/2016 Phenazopyridine Anaphylaxis High [...] 4 (four) times a day. Unknown dose. 05/30/2019 citalopram (CeleXA) 20 MG Take 1 [...] (two) times a day for 7 days. 04/15/2020 diazePAM (Valium) 2 MG Take 1 tablet 5 tablet 0 0 tablet (2 mg total) 0 by mouth every 12 (twelve) hours as needed for anxiety for up to 3 days. Active Problems Problem Noted Date Right arm cellulitis 08/07/2019 Schizoaffective disorder 04/28/2019 affected by growth restriction 12/04 Suicidal ideation 12/04/2017 Polysubstance abuse 12/04/2017 Osteomyelitis 12/04/2017 Urinary tract infection affecting care of mother, catia epartum 11/27/2017 Osteomyelitis of finger of right hand 11/04/2016 Cellulitis 10/28/2016 Deep postoperative wound infection 10/28/2016 Osteomyelitis of finger 10/28/2016 Bacterial skin infection 10/25/2016 Cellulitis of finger of right hand 10/24/2016 Encounters Care Team Description Date Type Specialty Brian Pond MD Adjustment disorder with depressed mood (Primary Dx) 04/12/2020 Emergency Emergency Medicine 04/12/2020 Travel Corbin Leung MD Chronic Abdominal pain of [...] MD Right arm cellulitis (Primary Dx) 08/07/2019 [facility] Internal Ne dicine - Encounter 08/09/2019 Ele House MD Hemorrhagic ovarian cyst (Primary Dx); Right lower quadrant abdominal pain 06/20/2019 Emergency Emergency Medicine - 06/21/2019 Mart Renae MD Extrapyramidal symptom (Primary Dx); Suicidal ideations 06/08/2019 Emergency Emergency Medicine Rosales Goode DO Tran, Boi Phuong, MD Suicidal ideation (Primary Dx); Depression, unspecified depression type 05/27/2019 Emergency Emergency Medicine - 05/29/2019 Aly Navas MD Tardive dyskinesia (Primary Dx); Adverse effect of drug, initial encounter 05/25/2019 Emergency Emergency Medicine Corbin Leung MD Cocaine abuse (HCC) (Primary Dx); Drug induced hallucinations (HCC) 05/24/2019 Emergency Emergency Medicine after 05/01/2019 Immunizations Name Administration Dates Next Due Rho [...] Assigned at Date Recorded Not on file Date Recorded COVID-19 Exposure Response 04/12/2020 2:17 PM CDT In the last month, have you been in contact with No / Unsure someone who was confirmed or suspected to have Coronavirus / COVID-19? Last Filed Vital Signs Reading Time Taken Comments Vital Sign 155/98 04/12/2020 5:39 PM CDT Blood Pressure 96 04/12/2020 5:39 PM CDT Pulse 35.8 C (96.4 F) 04/12/2020 1:04 PM CDT Temperature 18 04/12/2020 5:39 PM CDT Respiratory Rate 99% 04/12/2020 5:39 PM CDT Oxygen Saturation - - Inhaled Oxygen Concentration 65.8 kg (145 lb) 04/12/2020 1:05 PM CDT Weight 165.1 cm (5' 5") 04/12/2020 1:05 PM CDT Height 24.13 04/12/2020 1:05 PM CDT Body Mass Index Plan of Treatment Health Maintenance Due Date Last Done Comments CERVICAL CANCER SCREENING 12/20/2004 INFLUENZA VACCINE 03/04/2020 Procedures Comments Procedure Name Priority Date/Time Associated Diag nosis ESTIMATED GFR STAT 04/12/2020 2:45 PM CDT SALICYLATE LEVEL STAT 04/12/2020 2:45 PM CDT ACETAMINOPHEN LEVEL STAT 04/12/2020 2:45 PM CDT ALCOHOL LEVEL, BLOOD STAT 04/12/2020 2:45 PM CDT T4, FREE STAT 04/12/2020 2:45 PM CDT THYROID STIMULATING STAT 04/12/2020 HORMONE 2:45 PM CDT CREATINE KINASE, TOTAL STAT 04/12/2020 (CPK) 2:45 PM CDT COMPREHENSIVE METABOLIC STAT 04/12/2020 PANEL 2:45 PM CDT URINALYSIS SCREEN AND STAT 04/12/2020 MICROSCOPY, WITH REFLEX 1:50 PM CDT TO CULTURE URINE DRUGS OF ABUSE STAT 04/12/2020 SCREEN 1:50 PM CDT URINE CULTURE STAT 04/12/2020 1:50 PM CDT URINE CULTURE STAT 03/30/2020 12:43 PM CDT [...] US PELVIC TRANSABDOMINAL STAT 09/09/2019 7:35 PM SENIOR ACCOUNTING MANAGER URINE CULTURE STAT 09/09/2019 5:54 PM SENIOR ACCOUNTING MANAGER ESTIMATED GFR STAT 09/09/2019 4:55 PM SENIOR ACCOUNTING MANAGER URINE DRUGS OF ABUSE STAT 09/09/2019 SCREEN 4:55 PM SENIOR ACCOUNTING MANAGER HCG QUALITATIVE, SERUM STAT 09/09/2019 SCREEN 4:55 PM SENIOR ACCOUNTING MANAGER URINALYSIS SCREEN AND STAT 09/09/2019 MICROSCOPY, WITH REFLEX 4:55 PM SENIOR ACCOUNTING MANAGER TO CULTURE LIPASE LEVEL STAT 09/09/2019 4:55 PM SENIOR ACCOUNTING MANAGER COMPREHENSIVE METABOLIC STAT 09/09/2019 PANEL 4:55 PM SENIOR ACCOUNTING MANAGER HC COMPLETE BLD COUNT STAT 09/09/2019 W/AUTO DIFF 4:55 PM SENIOR ACCOUNTING MANAGER ESTIMATED GFR Routine 08/09/2019 4:45 AM SENIOR ACCOUNTING MANAGER BASIC METABOLIC PANEL Routine 08/09/2019 4:45 AM SENIOR ACCOUNTING MANAGER URINE DRUGS OF ABUSE Routine 08/08/2019 SCREEN 2:15 PM SENIOR ACCOUNTING MANAGER ESTIMATED GFR Routine 08/08/2019 5:06 AM SENIOR ACCOUNTING MANAGER HC COMPLETE BLD COUNT Routine 08/08/2019 W/AUTO DIFF 5:06 AM SENIOR ACCOUNTING MANAGER BASIC METABOLIC PANEL Routine 08/08/2019 5:06 AM SENIOR ACCOUNTING MANAGER LACTIC ACID LEVEL, SEPSIS Timed 08/08/2019 - NOW AND REPEAT 2X EVERY 2:35 AM SENIOR ACCOUNTING MANAGER 3 HOURS LACTIC ACID LEVEL, SEPSIS Timed 08/07/2019 - NOW AND REPEAT 2X EVERY 11:48 PM SENIOR ACCOUNTING MANAGER 3 HOURS ESTIMATED GFR STAT 08/07/2019 9:25 PM SENIOR ACCOUNTING MANAGER HCG QUALITATIVE, SERUM STAT 08/07/2019 SCREEN 9:25 PM SENIOR ACCOUNTING MANAGER LACTIC ACID LEVEL, SEPSIS STAT 08/07/2019 - NOW AND REPEAT 2X EVERY 9:25 PM SENIOR ACCOUNTING MANAGER 3 HOURS HC COMPLETE BLD COUNT STAT 08/07/2019 W/AUTO DIFF 9:25 PM SENIOR ACCOUNTING MANAGER COMPREHENSIVE METABOLIC STAT 08/07/2019 PANEL 9:25 PM SENIOR ACCOUNTING MANAGER BLOOD CULTURE, AEROBIC & Routine 08/07/2019 ANAEROBIC 9:25 PM SENIOR ACCOUNTING MANAGER BLOOD CULTURE, AEROBIC & Routine 08/07/2019 ANAEROBIC 9:20 PM SENIOR ACCOUNTING MANAGER US PELVIC TRANSVAGINAL STAT 06/21/2019 12:11 AM SENIOR ACCOUNTING MANAGER US PELVIC TRANSABDOMINAL STAT 06/21/2019 12:11 AM SENIOR ACCOUNTING MANAGER CT ABDOMEN PELVIS W STAT 06/20/2019 CONTRAST 11:14 PM SENIOR ACCOUNTING MANAGER GRAM STAIN STAT 06/20/2019 9:23 PM SENIOR ACCOUNTING MANAGER URINE CULTURE STAT 06/20/2019 9:23 PM SENIOR ACCOUNTING MANAGER ESTIMATED GFR STAT 06/20/2019 8:58 PM SENIOR ACCOUNTING MANAGER LIPASE LEVEL STAT 06/20/2019 8:58 PM SENIOR ACCOUNTING MANAGER COMPREHENSIVE METABOLIC STAT 06/20/2019 PANEL 8:58 PM SENIOR ACCOUNTING MANAGER HC COMPLETE BLD COUNT STAT 06/20/2019 W/AUTO DIFF 8:58 PM SENIOR ACCOUNTING MANAGER HCG QUALITATIVE, URINE STAT 06/20/2019 SCREEN 8:54 PM SENIOR ACCOUNTING MANAGER URINALYSIS SCREEN AND STAT 06/20/2019 MICROSCOPY, WITH REFLEX 8:54 PM SENIOR ACCOUNTING MANAGER TO CULTURE ESTIMATED GFR STAT 06/08/2019 7:25 AM SENIOR ACCOUNTING MANAGER COMPREHENSIVE METABOLIC STAT 06/08/2019 PANEL 7:25 AM SENIOR ACCOUNTING MANAGER HC COMPLETE BLD COUNT STAT 06/08/2019 W/AUTO DIFF 7:25 AM SENIOR ACCOUNTING MANAGER T4, FREE STAT 06/08/2019 7:02 AM SENIOR ACCOUNTING MANAGER THYROID STIMULATING STAT 06/08/2019 HORMONE 7:02 AM SENIOR ACCOUNTING MANAGER HCG QUALITATIVE, SERUM STAT 06/08/2019 SCREEN 7:02 AM SENIOR ACCOUNTING MANAGER URINE DRUGS OF ABUSE STAT 06/08/2019 SCREEN 7:02 AM SENIOR ACCOUNTING MANAGER ESTIMATED GFR STAT 05/27/2019 2:45 PM CDT [...] URINE CULTURE STAT 05/24/2019 2:24 PM CDT after 05/01/2019 Results * Estimated GFR (04/12/2020 2:45 PM CDT) Only the most recent of 12 results within the time period is included. Estimated GFR >=90 mL/min/1.73 m2 HEATH Comment: [facility] Interpretation G1 >=90 Normal or high G2 [...] published in 2014. Specimen Performing Organization Address City/State/ZIP Code P [place] [address] [place] [address] PATHOLOGY AND GENOMIC MEDICINE [place] [address] * Thyroid stimulating hormone (04/12/2020 2:45 PM CDT) Only the most recent of 4 results within the time period is included. TSH 0.28 (L) 0.55 - 4.78 uIU/mL [facility] Specimen Serum Performing Organization Address [facility] P alexi Number [facility] [place] [address] PATHOLOGY AND [facility] [address] * T4, free (04/12/2020 2:45 PM CDT) Only the most recent of 4 results within the time period is included. T4, free 0.8 0.8 - 1.8 ng/dL [facility] Specimen Serum Performing Organization Address [facility] P alexi Number [facility] DEPARTMENT [address] AND [address] * Creatine kinase, total (CPK) (04/12/2020 2:45 PM CDT) Only the most recent of 3 results within the time period is included. [facility] Creatine kinase 90 35 - 200 U/L [facility] Specimen Blood Performing Organization Address [facility] P alexi Number [facility] [address] * Alcohol level, blood (04/12/2020 2:45 PM CDT) Only the most recent of 3 results within the time period is included. Alcohol None Detected mg/dL HEATH Comment: [facility] None Detected Legal Intoxication in [place] 80 mg/dL (0.08%) - Whole Blood Toxic Concentration 200 mg/dL (0.2%) Potentially Fatal 350 - 500 mg/dL (0.35 - 0.5%) Alcohol percent None Detected % [facility] Specimen Blood Performing Organization Address [facility] P alexi Number [facility] [address] [place] [address] PATHOLOGY AND [facility] [address] * Acetaminophen level (04/12/2020 2:45 PM CDT) Only the most recent of 3 results within the time period is included. Acetaminophen <15.9 ug/mL [facility] level Comment: [facility] 10-30 ug/mL Possible Toxicity 150-200 ug/mL Probable Toxicity >200 ug/mL Specimen Serum Performing Organization Address [facility] [place] [address] PATHOLOGY AND [facility] [address] * Salicylate level (04/12/2020 2:45 PM CDT) Only the most recent of 3 results within the time period is included. Salicylate <0.4 mg/dL HEATH Comment: [facility] Therapeutic Range: HOSPITAL 5 - 30 mg/dL Specimen Serum Performing Organization Address [facility] [place] [address] PATHOLOGY AND [facility] [address] * Comprehensive metabolic panel (04/12/2020 2:45 PM CDT) Only the most recent of 9 results within the time period is included. Sodium 136 135 - 148 mEq/L [facility] Potassium 5.3 (H)Comment: Specimen 3.5 - 5.0 mEq/L [facility] hemolyzed [facility] Chloride 100 99 - 109 mEq/L [facility] CO2 22 (L) 24 - 31 mEq/L [facility] Anion gap 14@ANIO 7 - 15 mEq/L [facility] BUN 9 8 - 24 mg/dL [facility] Creatinine 0.51 0.50 - 0.90 mg/dL [facility] Glucose 83 65 - 99 mg/dL [facility] Calcium 9.3 8.6 - 10.6 mg/dL [facility] Protein 7.2 6.3 - 8.2 g/dL [facility] Albumin 3.7 3.5 - 5.0 g/dL [facility] A/G ratio 1.1 0.7 - 3.8 [facility] Alkaline 44 30 - 115 U/L HEATH phosphatase [facility] AST 40 15 - 46 U/L [facility] ALT 11 10 - 55 U/L [facility] Total bilirubin <0.3 0.2 - 1.2 mg/dL [facility] Specimen Blood Performing Organization Address City/State/ZIP Code [place] [id number] [place] [address] PATHOLOGY AND GENOMIC MEDICINE [facility] [id number] [place] [address] * Urinalysis screen and microscopy, with reflex to culture (04/12/2020 1:50 PM CDT) Only the most recent of 6 results within the time period is included. Specimen site Clean catch [facility] Color, UA Yellow [facility] Appearance, UA Sl Cloudy [facility] Specific 1.011 1.001 - 1.035 HEATH gravity, UA [facility] pH, UA 8.0 5.0 - 8.5 [facility] Protein, UA Negative Negative [facility] Glucose, UA Negative Negative [facility] Ketones, UA Negative Negative [facility] Bilirubin, UA Negative Negative [facility] Blood, UA Negative Negative [facility] Nitrite, UA Negative Negative [facility] Urobilinogen, <2.0 <2.0 [facility] Leukocyte Negative Negative HEATH esterase, [facility] Epithelial >20 /HPF HEATH cells, [facility] WBC, UA 2 0 - 4 /HPF [facility] RBC, UA None seen 0 - 5 /HPF [facility] Bacteria, UA Few None seen [facility] Yeast, UA None seen [facility] Yeast with None seen [facility] Specimen Urine Performing Organization Address City/State/ZIP Code [place] [address] [place] [address] PATHOLOGY AND GENOMIC MEDICINE [facility] [id number] [place] [address] * Urine drugs of abuse screen (04/12/2020 1:50 PM CDT) Only the most recent of 5 results within the time period is included. Amphetamine Negative HEATH screen, urine [facility] Barbiturate Negative HEATH screen, urine [facility] Benzodiazepine Negative HEATH screen, urine [facility] Cocaine screen, Negative HEATH urine [facility] Methadone Negative HEATH metabolite [facility] (EDDP), [facility] Opiates screen, Positive (A) HEATH urine [facility] Oxycodone Negative HEATH screen, urine [facility] Phencyclidine Negative HEATH screen, urine [facility] Tricyclic Negative HEATH screen, urine [facility] Cannabinoid Negative HEATH screen, urine Comment: [facility] Drug screen minimum HOSPITAL concentration of detectability Amphetamines 1000 ng/mL Barbiturates 200 ng/mL Benzodiazepines 300 ng/mL Cocaine 300 ng/mL Methadone 300 ng/mL Opiates 300 ng/mL Oxycodone 300 ng/mL Phencyclidine 25 ng/mL Cannabinoids 50 ng/mL Tricyclics 1000 ng/mL Results are from screening tests and should only be used for medical evaluation. Drug testing for legal purposes requires definitive (or confirmatory) testing methods, which are available upon request. Contact the laboratory if definitive testing is required. Specimen Urine Performing Organization Address City/[facility]/ZIP Code P alexi Number [facility] [id number] [place] [address]. [place] [address] PATHOLOGY AND GENOMIC MEDICINE [address] * Urine culture (04/12/2020 1:50 PM CDT) Only the most recent of 6 results within the time period is included. Urine culture SEE COMMENTComment: HEATH Bacteriuria screen negative. [facility] Specimen Performing Organization Address [facility] P alexi Number [facility] [id number] [place] [address]. [place] [address] PATHOLOGY AND GENOMIC MEDICINE [address] * hCG qualitative, urine screen (03/30/2020 12:18 PM CDT) Only the most recent of 2 results within the time period is included. hCG NegativeComment: Sensitivity HEATH qualitative, of HCG test: 25 mIU/ml HANNAH Wilson [facility] Specimen Urine Performing Organization Address City/[facility]/ZIP Code P alexi Number [facility] [place] [address] [place], [place] [address] PATHOLOGY AND GENOMIC MEDICINE [facility] [address] [place] [address] [facility] * CT Abdomen Pelvis W Contrast (03/30/2020 11:57 AM CDT) Only the most recent of 2 results within the time period is included. Specimen Narrative Performed At EXAMINATION: CT ABDOMEN PELVIS W CONTRAST RADICarlito NT CLINICAL HISTORY: 34 years old Female. Chronic [...] reduce radiation dose. COMPARISON: CT abdomen pelvis 01/12/20, 06/20/2019 IMPRESSION: LOWER CHEST: Visualized lower thorax: [...] perforation, ascites, flui d collection or hydronephrosis. [facility]-[id number] Procedure Note Interface, Radiology Results - 03/30/2020 12:08 PM CDT EXAMINATION: CT [...] obstruction, perforation, ascites, fluid collection or hydronephrosis. [facility]-[id number] Performing Organization Address City/State/ZIP Code P alexi Number [facility] [address] [place] [address] * XR Abdomen Acute Inc Chest (03/30/2020 [...] colon may indicate constipation. [id number] Procedure Note Hm Interface, Radiology Results Incoming - 03/30/2020 11:15 [...] may indicate constipation. [id number] Performing Organization Address [facility]/State/ZIP Code P alexi Number [facility] [address] [place] [address] * Troponin (03/30/2020 10:10 AM CDT) Troponin <0.006 0.000 - 0.040 ng/mL HEATH Comment: [facility] SUGAR In patients suspected of [facility] having a myocardial infarction, along with all [...] 0.020 ng/mL Specimen Blood Performing Organization Address [facility]/State/ZIP Code P alexi Number [facility] [place] [address] [place], [place] [address] PATHOLOGY AND [facility] [address] * Prothrombin time with INR (03/30/2020 10:10 AM CDT) Prothrombin 13.0 11.5 - 14.5 [facility] INR 1.0 HEATH Comment: [facility] International Normalized [facility] Ratio (INR) is a therapeutic monitoring tool for patients who are stable on oral anticoagulant therapy. An INR of 2.0-3.0 is suggested for deep vein thrombosis/pulmonary embolism. Specimen Blood Performing Organization Address City/State/ZIP Code P alexi Number [facility] [id number] [place] [address] PATHOLOGY [address] * CBC with platelet and differential (03/30/2020 10:10 AM CDT) Only the most recent of 10 results within the time period is included. WBC 4.2 (L) 4.5 - 11.0 k/uL [facility] RBC 3.96 (L) 4.20 - 5.50 m/uL [facility] HGB 12.9 12.0 - 16.0 g/dL [facility] HCT 37.9 37.0 - 47.0 % [facility] MCV 95.7 82.0 - 100.0 fL [facility] MCH 32.6 27.0 - 34.0 pg [facility] MCHC 34.0 31.0 - 37.0 g/dL [facility] RDW - SD 42.2 37.0 - 55.0 fL [facility] MPV 10.7 6.9 - 11.0 fL [facility] Platelet count 263 150 - 400 K/uL [facility] Nucleated RBC 0.00 /100 WBC [facility] Neutrophils 58.1 39.0 - 69.0 % [facility] Lymphocytes 30.8 25.0 - 45.0 % [facility] Monocytes 6.5 0.0 - 10.0 % [facility] Eosinophils 3.4 0.0 - 5.0 % [facility] Basophils 1.0 0.0 - 1.0 % [facility] Immature 0.2 0.0 - 1.0 % HEATH granulocytes [facility] Specimen Blood Performing Organization Address City/[facility]/ZIP Code P alexi Number [facility] DEPART[facility] [place] [address] PATHOLOGY AND GENOMIC MEDICINE [address] * hCG qualitative, serum screen (03/30/2020 10:10 AM CDT) Only the most recent of 7 results within the time period is included. hCG NegativeComment: Sensitivity HEATH qualitative, of HCG test: 25 mIU/mL [facility] Specimen Blood Performing Organization Address City/[facility]/ZIP [facility] P alexi Number [facility] DE[facility] [place] [address] * B natriuretic peptide (03/30/2020 10:10 AM CDT) BNP 14 0 - 100 pg/mL [facility] Specimen Blood Performing Organization Address City/[facility] P alexi Number [place] [address] PATHOLOGY [address] * Lipase level (03/30/2020 10:10 AM CDT) Only the most recent of 4 results within the time period is included. Lipase 20 13 - 60 U/L [facility] Specimen Blood Performing Organization Address City/[facility]/ZIP Code P alexi Number [facility] DEPART[facility] [place] [address] PATHOLOGY [address] * ECG ED Preliminary Interpretation - Not [...] Physician in the abs ence of a environmental conflict manager: yes Interpretation: Interpretation: abnormal Rate: ECG [...] MUSE rate Atrial rate 116 [facility] MUSE [place] interval 132 [facility] MUSE QRSD interval 70 [...] is n ot available. Performing Organization Address City/State/ZIP Code P alexi Number [facility] MUSE [address] [place] [address] * CT Abdomen Pelvis Wo Contrast (01/12/2020 [...] outlet obstruction. No hydro nephrosis or hydroureter. [facility]-[id number] Procedure Note Interface, Radiology Results Incoming - 01/12/2020 9:55 PM [...] or outlet obstruction. No hydronephrosis or hydroureter. [id number] Performing Organization Address City/State/ZIP Code P alexi Number [facility] [address] [place] [address] * Occult blood, stool (01/12/2020 9:13 PM CDT) Occult blood, Negative for occult blood. HEATH stool Comment: HANNAH VELARDE Specimen Information [facility] Specimen Source: Stool Specimen Site: Nonpreserved Specimen Stool - Nonpreserved Performing Organization Address City/State/ZIP Code P alexi [place] [address] [place] [address] PATHOLOGY AND GENOMIC MEDICINE [facility] [address] [address] [place] [address] HOSPITAL * US Pelvic [...] transabdominal and endovaginal pelvic u ltrasound examination. [facility]-[id number] Procedure Note Interface, Radiology Results Incoming - [...] unremarkable transabdominal and endovaginal pelvic ultrasound examination. [id number] Performing Organization Address City/State/ZIP Code P alexi Number [facility] [address] [place] [address] * US Pelvic Transabdominal (01/12/2020 9:04 PM CDT) Only the most recent of 3 results within the time period is included. Specimen Narrative Performed At EXAMINATION: US PELVIC TRANSABDOMINAL, [facility] CL[facility]ICAL H[facility]: lower abd pain COMPARISON: None. [...] transabdominal and endovaginal pelvic u ltrasound examination. [id number] Procedure Note Interface, Radiology Results Incoming - [...] unremarkable transabdominal and endovaginal pelvic ultrasound examination. [id number] Performing Organization Address [facility]/ZIP [facility] [facility] [place] [facility] P alexi Number [facility] [address] [place] [address] * Basic metabolic panel (08/09/2019 4:45 AM SENIOR ACCOUNTING MANAGER) Only the most recent of 3 results within the time period is included. Sodium 137 135 - 148 mEq/L [facility] Potassium 4.1 3.5 - 5.0 mEq/L [facility] Chloride 109 98 - 112 mEq/L [facility] CO2 20 (L) 24 - 31 mEq/L [facility] Anion gap 8@ANIO 7 - 15 mEq/L [facility] BUN 10 6 - 20 mg/dL [facility] Creatinine 0.67 0.50 - 0.90 mg/dL [facility] Glucose 94 65 - 99 mg/dL [facility] Calcium 8.3 8.3 - 10.2 mg/dL [facility] Specimen Plasma specimen Performing Organization Address [facility] P alexi Number [facility] [address] [address] PATHOLOGY AND GENOMIC MEDICINE [address] * Lactic acid level, SEPSIS - Now and repeat 2x every 3 hours (08/08/2019 2:35 AM SENIOR ACCOUNTING MANAGER) Only the most recent of 3 results within the time period is included. Lactic acid 0.7 0.5 - 2.2 mmol/L [facility] Specimen Plasma specimen Performing Organization Address City/[facility] P alexi Number [facility] DE[facility] [id number] [place] [address] PATHOLOGY AND GENOMIC MEDICINE [address] * Blood culture, aerobic & anaerobic (08/07/2019 9:25 PM SENIOR ACCOUNTING MANAGER) Only the most recent of 2 results within the time period is included. Blood culture No growth after 5 days of HEATH isolate incubation. [facility] Comment: HOSPITAL Specimen Information Specimen Source: Blood Specimen Site: Antecubital, left Specimen Blood - Antecubital, left Performing Organization Address City/[facility]/ZIP [facility] P alexi Number [facility] DEPARTMENT OF [address] [place] [address] PATHOLOGY AND GENOMIC MEDICINE HEATH [facility] [address] [place] [address] HOSPITAL * Gram stain (06/20/2019 9:23 PM SENIOR ACCOUNTING MANAGER) Gram stain No WBC's HEATH result Many Gram variable rods [facility] Comment: HOSPITAL Specimen Information Specimen Source: Urine Specimen Site: Clean catch Specimen Urine Performing Organization Address City/[facility]/ZIP Code P alexi Number [facility] DEPARTMENT OF [address] [place] [address] PATHOLOGY AND GENOMIC MEDICINE HEATH [facility] [address] [place] [address] HOSPITAL after 05/01/2019 Insurance Type Payer Benefit Subscriber ID Effective Phone Address Plan / Dates Group PPO MULTIPLAN MULTIPLAN [id number] 2019-P INC PPO resent Advance Directives For more information, please contact: [phone] Patient General Clerk Explanation Type Date Recorded Advance Directives, 06/20/2019 9:35 PM Living Will and Medical Power of Faculty Physician Advance Directives, 05/13/2018 5:15 PM Living Will and Medical Power of Faculty Physician Advance Directives, 06/20/2019 9:37 PM Living Will and Medical Power of Faculty Physician Advance Directives, 06/20/2019 9:39 PM Living Will and Medical Power of Faculty Physician Date Inactivated Comments Code Status Date Activated [...]
--- OUTSIDE RECORDS SUMMARY | 2020-05-01 23:49 | XMS REPORT | Clinical Summary ---
Author Author [facility] Organization [facility] Address Unknown Phone Unavailable Care Team Providers Care Jig Mill Operator Name Role Phone Kelin Urbano PAM [phone] Allergies Comments Active Allergy Reactions Severity Noted [...] Ayanna Dao RN 01/04/2020 Nurse Triage after 05/01/2019 Family History Medical History Relation Name Comments [...] (>/= 19 yrs) Results Not on fileafter 05/01/2019 Insurance Type Payer Benefit Subscriber ID Effective Phone Address Plan / Dates Group [place] [id number] xxxxxxxxx 2018- [phone] [facility]OM[facility] Present [id number] [place], [place] PROGRAM [id number] [facility] SELF-PAY SELF-PAY xxxxxx 2017-2 [address] [place] [address] Advance Directives Date Inactivated Comments Code Status Date Activated 07/02/2018 4:23 PM Full Code 06/17/2018 5:49 PM 05/05/2018 4:24 PM Full Code 04/29/2018 5:42 PM 10/20/2017 4:52 PM Full Code 10/15/2017 4:04 PM 11/01/2015 9:27 PM Full Code 10/26/2015 4:55 AM 03/29/2015 6:22 PM Full Code 03/28/2015 3:16 AM
--- OUTSIDE RECORDS SUMMARY | 2020-05-01 23:50 | XMS REPORT | Clinical Summary ---
Author Author [facility] Address Unknown Phone Unavailable Care Team Providers Care Assistant Infant Toddler Teacher Name Role Phone Pcp, No PCP Unavailable [...] Emergency Emergency Medicine Agata Hdez MD 12/31/2019 [facility] Internal Ar dicine - Encounter 01/01/2020 Nathaly Downs MD [...] Tamir Tolentino MD 06/22/2019 Emergency Emergency Medicine after 05/01/2019 Family History Medical History Relation [...] LAB REPORT - 09/29/2019 SCAN 3:33 PM MONEY ORDER CLERK US PELVIS WITH ENDOVAG STAT 09/24/2019 WITH DOPPLER 12:15 PM MONEY ORDER CLERK URINALYSIS W/ REFLEX STAT 09/24/2019 URINE CULTURE 9:56 AM MONEY ORDER CLERK SCREEN, URINE STAT 09/24/2019 9:56 AM MONEY ORDER CLERK CT ABDOMEN/PELVIS WITH IV STAT 08/17/2019 CONTRAST 12:56 PM MONEY ORDER CLERK SCREEN, URINE STAT 08/17/2019 12:33 PM MONEY ORDER CLERK CBC W/PLT COUNT & AUTO STAT 08/17/2019 DIFFERENTIAL 11:37 AM MONEY ORDER CLERK LIPASE STAT 08/17/2019 11:37 AM MONEY ORDER CLERK HEPATIC FUNCTION PANEL STAT 08/17/2019 11:37 AM MONEY ORDER CLERK LACTIC ACID, VENOUS STAT 08/17/2019 11:37 AM MONEY ORDER CLERK BASIC METABOLIC PANEL (7) STAT 08/17/2019 11:37 AM MONEY ORDER CLERK CBC W/PLT COUNT & AUTO STAT 08/17/2019 DIFFERENTIAL 11:37 AM MONEY ORDER CLERK US PELVIS WITH ENDOVAG STAT 08/03/2019 WITH DOPPLER 1:44 AM MONEY ORDER CLERK CT ABDOMEN/PELVIS WITH IV STAT 08/02/2019 CONTRAST 11:01 PM MONEY ORDER CLERK LIPASE STAT 08/02/2019 10:21 PM MONEY ORDER CLERK COMPREHENSIVE METABOLIC STAT 08/02/2019 PANEL 10:21 PM MONEY ORDER CLERK CBC W/PLT COUNT & AUTO STAT 08/02/2019 DIFFERENTIAL 9:07 PM MONEY ORDER CLERK CBC W/PLT COUNT & AUTO STAT 08/02/2019 DIFFERENTIAL 9:07 PM MONEY ORDER CLERK URINALYSIS W/ MICROSCOPIC STAT 08/02/2019 9:00 PM MONEY ORDER CLERK SCREEN, URINE STAT 08/02/2019 9:00 PM MONEY ORDER CLERK (MANUAL DIFFERENTIAL) STAT 07/28/2019 7:09 PM MONEY ORDER CLERK CBC W/PLT COUNT & AUTO STAT 07/28/2019 DIFFERENTIAL 7:09 PM MONEY ORDER CLERK URINALYSIS W/ MICROSCOPIC STAT 07/28/2019 7:09 PM MONEY ORDER CLERK SCREEN, URINE STAT 07/28/2019 7:09 PM MONEY ORDER CLERK CBC W/PLT COUNT & AUTO STAT 07/28/2019 DIFFERENTIAL 7:09 PM MONEY ORDER CLERK LIPASE STAT 07/28/2019 7:09 PM MONEY ORDER CLERK COMPREHENSIVE METABOLIC STAT 07/28/2019 PANEL 7:09 PM MONEY ORDER CLERK after 05/01/2019 Results * CBC with platelet count + [...] Granulocytes-Relative LABORATORY Specimen Blood Performing Organization Address City/[facility] Ph [facility] Number [facility] [address] [place], [place] [phone] * hCG, serum, qualitative (03/08/2020 1:29 PM CDT) Preg Test, Serum Negative [facility] Specimen Body Fluid Performing Organization Address City/[facility] Ph one Number [facility] [address] [place], [place] [phone] * Lipase (03/08/2020 1:29 PM CDT) Only the most recent of 7 results within the time period is included. Lipase 18 6 - 51 U/L [facility] Specimen Blood Narrative Performed At Nurse Substance Abuse ID - [id number] [facility] Performing Organization Address [facility] one [facility] [address] [place] [address] * Comprehensive metabolic panel (03/08/2020 1:29 PM CDT) Only the most recent of 3 results within the time period is included. Protein, Total 8.4Comment: Specimen slightly 6.0 - 8.5 gm/dL [facility] Albumin 4.7Comment: Specimen slightly 3.5 - 5.0 g/dL [facility]zed LAB[facility]ORY Alkaline Phosphatase 43 30 - 115 U/L [facility] Total Bilirubin 0.3Comment: Specimen slightly 0.1 - 1.2 mg/dL [facility] Sodium 139 135 - 148 meq/L [facility] Potassium 3.8Comment: Specimen slightly 3.6 - 5.5 meq/L [facility] hem[facility]zed LAB[facility]ORY Chloride 107 (H) 98 - 106 meq/L [facility] CO2 18 (L) 20 - 29 meq/L [facility] BUN 13 10 - 26 mg/dL [facility] Creatinine 0.77Comment: Specimen slightly 0.50 - 1.20 mg/ dL [facility] Glucose 69 (L) 70 - 110 mg/dL [facility] Calcium 9.3 8.5 - 10.5 mg/dL [facility] AST 20Comment: Specimen slightly 5 - 40 U/L [facility] ALT 8Comment: Specimen slightly 5 - 50 U/L [facility] hemolyzed LAB[facility]AT[facility] EGFR 103Comment: ESTIMATED GFR IS mL/min/1.73 sq m [facility] NOT ACCURATE CREATININE LABORATORY CLEARANCE IN PREDICTING GLOMERULAR FILTRATION RATE. ESTIMATED GFR IS NOT APPLICABLE FOR DIALYSIS PATIENTS. Specimen Blood Narrative Performed At Nurse Substance Abuse ID - [id number] [facility] Performing Organization Address [facility] one [facility] [address] [place] [address] * Urinalysis w/Microscopic (03/08/2020 12:42 PM CDT) Only the most recent of 6 results within the time period is included. Color, UA Yellow [facility] Clarity, UA Clear [facility] Specific [place], UA >=1.030 1.001 - 1.035 [facility] pH, UA 5.5 5.0 - 8.0 [facility] Protein, [...] UA Few [facility] RBC, UA None Seen /HPF [facility] WBC, UA <5 /HPF [facility] SQUAMOUS EPITHELIAL 10-20 /HPF [facility] Specimen Source [facility] Specimen Urine Performing Organization Address City/State/[facility] Ph one Number [facility] [address] [place] [address] * CT abdomen pelvis without contrast (01/14/2020 7:17 PM CDT) Only the most recent of 2 results within the time period is included. Specimen Narrative Performed At FINAL REPORT [facility] CLINICAL HISTORY: Dysuria FINDINGS: Multiple axial images of the abdomen an d pelvis were performed without intravenous contrast. Oral cont rast was not given. There is enteric contrast in the colon from rece nt imaging procedure performed at an outside facility. This exam was performed according to [facility] departmental dose-optimization program, which includ es automated [...] recent imaging procedure performed at an outside facil ity. Please correlate with intervening history. Signed: [...] Verified Date/Time: 01/14/2020 19:36:56 Performing Organization Address City/State/Zipcode Ph one Number [facility] * Basic metabolic panel (Na, K+, Cl, CO2, Glu, Ca, BUN, Cr) (01/14/2020 6:52 PM CDT) Only the most recent of 5 results within the time period is included. Sodium 136 135 - 148 meq/L [facility] Potassium 4.9Comment: Specimen 3.6 - 5.5 meq/L [facility] [place] [facility] Chloride 109 (H) 98 - 106 meq/L [facility] CO2 15 (L) 20 - 29 meq/L [facility] BUN 18 10 - 26 mg/dL [facility] Creatinine 0.69Comment: Specimen 0.50 - 1.20 mg/dL [facility] Glucose 70 70 - 110 mg/dL [facility] Calcium 9.4 8.5 - 10.5 mg/dL [facility] EGFR 117Comment: ESTIMATED GFR IS mL/min/1.73 sq m [facility] NOT ACCURATE CREATININE LABORATORY CLEARANCE IN PREDICTING GLOMERULAR FILTRATION RATE. ESTIMATED GFR IS NOT APPLICABLE FOR DIALYSIS PATIENTS. Specimen Blood Narrative Performed At Nurse Substance Abuse ID - [id number] [facility] Performing Organization Address [facility] one [facility] [address] [place] [phone] * Liver Panel (01/14/2020 4:40 PM CDT) Only the most recent of 4 results within the time period is included. Protein, Total 8.8 (H) 6.0 - 8.5 gm/dL [facility] Albumin 4.4 3.5 - 5.0 g/dL [facility] Total Bilirubin 0.2 0.1 - 1.2 mg/dL [facility] Bilirubin, Direct <0.1 0.0 - 0.4 mg/dL [facility] Alkaline Phosphatase 36 30 - 115 U/L [facility] D [facility] AST 35 5 - 40 U/L [facility] ALT 11 5 - 50 U/L [facility] Specimen Blood Narrative Performed At Nurse Substance Abuse ID - MANUELITO [facility] Performing Organization Address [facility] one Number [facility] [address] [place] [address] * Rapid drug screen, urine (01/14/2020 4:29 [...] pH, UA 7.0 5.0 - 8.0 [facility] Specimen Urine Narrative Performed At [facility] Cocaine 300 ng/mL [facility] Rceaqjqnijb34 n g/mL Tlqmelaunnvxfb656 ng/mL Barbiturate 200 ng/ mL Oexcsudzwhugc41 ng/ mL Opiate3 00 ng/mL Methadone 300 n g/mL Amphetamine/ 1000 ng/mL Methamphetamine This assay provides an unconfirmed qual itative test result for the clinical management of patients in emergency sit uations. Chain of custody not maintained. Some cvbj-sgl-idpnhmo medications, as w ell as adulterants, may cause inaccurate results. Clinical correlation should be applied. A more comprehensive drug screen or confirmation of a detected dr ug may be performed upon request. Nurse Substance Abuse ID - MANUELITO Nurse Substance Abuse ID - MANUELITO Nurse Substance Abuse ID - MANUELITO Nurse Substance Abuse ID - MANUELITO Nurse Substance Abuse ID - MANUELITO Nurse Substance Abuse ID - MANUELITO Nurse Substance Abuse ID - MANUELITO Nurse Substance Abuse ID - MANUELITO Performing Organization Address City/[facility] Ph one [facility] [address] [place] [phone] * screen, urine (01/14/2020 4:29 PM CDT) Only the most recent of 7 results within the time period is included. Preg Test, Ur Negative [facility] Specimen Urine Performing Organization Address City/[facility] Ph one Number [facility] [address] [place] [phone] * Urine culture (01/14/2020 4:29 PM CDT) Only the most recent of 2 results within the time period is included. Result >100,000 col/mL skin vane [facility] Specimen Urine Performing Organization Address City/[facility] Ph one [facility] [address] [place] [phone] * TSH/Free T4 If Indicated (01/01/2020 6:24 AM CDT) TSH 0.330 (L) 0.350 - 5.500 uIU/mL [facility] Specimen Blood Narrative Performed At Nurse Substance Abuse ID - [id number] [facility] Performing Organization Address City/[facility] one [facility] [address] [place] [address] * T4, free (01/01/2020 6:24 AM CDT) Free T4 0.79 (L) 0.90 - 1.80 ng/dL [facility] Specimen Blood Narrative Performed At Nurse Substance Abuse ID - [id number] [facility] Performing Organization Address [facility] one [facility] [address] [place] [address] * Lactic acid, venous (12/25/2019 2:10 AM CDT) Only the most recent of 3 results within the time period is included. Lactate, Venous 0.41 (L) 0.50 - 2.00 mmol/L [facility] Specimen Blood Narrative Performed At Nurse Substance Abuse ID - RESORIAN [place] [facility] Performing Organization Address [facility] one [facility] [address] [place] [address] * CT abdomen pelvis with IV contrast (11/06/2019 3:59 PM CDT) Only the most recent of 3 results within the time period is included. Specimen Narrative Performed At FINAL REPORT [facility] TECHNIQUE: CT of the abdomen and pelvis [...] Report Verified Date/Time: 0 16:13:27 Reading Location: [facility] B1 C013Y CT Body Reading Room Procedure [...] Report Verified Date/Time: 11/06/2019 16:13:27 Reading Location: [facility] B1 C013Y CT Body Reading Room Performing Organization Address City/State/[facility] Ph one Number [facility] * HIV-1 Antigen with HIV-1/2 Antibody (11/06/2019 1:58 PM CDT) HIV-1 Antigen with HIV Nonreactive Nonreactive [facility] 1&2 Antibody LABORATORY Specimen Blood Narrative Performed At Nurse Substance Abuse ID - [id number] [facility] Performing Organization Address [facility] one Number [facility] [address] [place], [place] [address] * STD Panel - CT/GC RNA (11/06/2019 1:47 PM CDT) C. trachomatis RNA, TMA NOT DETECTED [facility] N. gonorrhoeae RNA, TMA NOT DETECTED [facility] Comment: INC[facility]PORATED REFERENCE RANGE:NOT DETECTED Methodology: Outside Maintenance Worker Mediated Amplification (TMA) to detect RNA. The analytical performance characteristics of this assay, when used to test SurePath(TM) specimens have been determined by [facility]. The modifications have not been cleared or approved by the FDA. This assay has been validated pursuant to the CLIA regulations and is used for clinical purposes. For additional information, please refer to https://education.Ethertronics.Studentgems/faq/QYQ093 (This link is being provided for informational/ educational purposes only.) Specimen Vaginal Swab Narrative Performed At Performing Lab [facility] is[facility]. [address] [place] [address] Ash Peres MD Performing Organization Address City/[facility] Ph one Number [facility], [address] [place], [place] INCORPORATED [facility] [address] * Wet prep, genital (11/06/2019 1:47 PM CDT) WBC - wet prep Few white blood cells seen [facility] Clue cells - wet prep No clue cells seen [facility] Yeast - wet prep No budding yeast seen [facility] Trichomonas - wet prep No Trichomonas seen [facility] Bacteria - wet prep Moderate bacteria seen [facility] Specimen Genital Performing Organization Address City/State/Zipcode Ph one Number [facility] [address] [facility] [place] [address] * PERMANENT LAB REPORT - SCAN (09/29/2019 3:33 PM MONEY ORDER CLERK) Narrative Performed At This result has an attachment that is n ot available. * US pelvis with endovag with doppler (09/24/2019 12:15 PM MONEY ORDER CLERK) Only the most recent of 2 results within the time period is included. Specimen Narrative Performed At FINAL REPORT [facility] PELVIC ULTRASOUND, WITH ENDOVAGINAL OFE DY AND [...] Report Verified Date/Time: 0 12:25:17 Reading Location: [facility] Radiology [facility] Room Procedure Note Interface, External Ris In - 09/24/2019 12:27 PM MONEY ORDER CLERK FINAL REPORT PELVIC ULTRASOUND, WITH ENDOVAGINAL STUDY [...] Report Verified Date/Time: 09/24/2019 12:25:17 Reading Location: [facility] Radiology Reading Room Performing Organization Address City/[facility] Ph one Number [facility] * Urinalysis w/Microscopic + Reflex to Culture (09/24/2019 9:56 AM MONEY ORDER CLERK) Color, UA Yellow [facility] Clarity, UA Clear [facility] Specific [place], UA 1.010 1.001 - 1.035 [facility] [...] LAND LABORATORY Specimen Urine Performing Organization Address [facility] one Number [facility] [address] [place] [address] * Manual Differential (07/28/2019 7:09 PM MONEY ORDER CLERK) Total Counted [facility] WBC Morphology Normal [facility] RBC Morphology Normal [facility] Hypogranular Platelet Present [facility] Specimen Blood Performing Organization Address [facility] Ph one Number [facility] [address] [place] [address] after 05/01/2019 Insurance Payer Benefit Subscriber ID Type Phone Address Plan / Group MEDICAID MEDICAID xxxxxxxxx Medicaid [place] Advance Directives For more information, please contact: [facility] [address] [place] [address] Date Inactivated Comments Code Status Date Activated 03/21/2018 12:35 PM Full Code 03/18/2018 1:21 AM This code status was determined by: Patient
--- OUTSIDE RECORDS SUMMARY | 2020-05-01 23:52 | XMS REPORT | Continuity of Care Document ---
Author Author [facility] t Organization [facility] Address [address] [place] [address] Phone Unavailable Care Team Providers Care Parachute Inspector Name Role Phone NO, PCP PCP Unavailable Salty ROBLERO, Brian Attphys Ariel ROBLERO, Laurie Guzman Attphys [phone] Madhu ROBLERO, Corbin Attphys Sekou ROBLERO, Santiago Menard Attphys DR YANI MENDES Attphys Unavailable Robi ROBLERO, Monik Neri Attphys Himanshu ROBLERO, Jil Andersen Attphys Romel ROBLERO, Wilfrid Segovia Attphys WILFRID MALCOLM Attphys Unavailable Luis HILARIO Attphys Unavailable Manan ARAUJO Attphys Unavailable JIL DOWNS Attphys Unavailable Oc ROBLERO, Monica Cevallos Attphys Sylwia PITT, Ayanna Attphys Unavailable Lemuel ROBLERO, Cherry Parmar Attphys [phone] [place]ARK Attphys Unavailable Steve WAGNER Attphys Unavailable MONIK JAIMES Attphys Unavailable Michelle ROBLERO, Gregorio Marion Attphys Ko ANDRE, Denilson Attphys Thien ROBLERO, Harrison Attphys Alex ROBLERO, Nilay Dowell Attphys NILAY JOHNSON Attphys Unavailable Rajan ROBLERO, Prieto Garnett Attphys Harsh ROBLERO, Jessie Marlow Attphys [phone] Tirmixuan DO, H. Aatif Attphys Annabelle ROBLERO, Kristel Pritchett Attphys Yosef ROBLERO, Mariano Lu Attphys SAI BLANCAS Attphys Unavailable STEPHANIE, RAJAKSHAT Attphys Unavailable BALA POPE Attphys Unavailable RORO ZEE Attphys Unavailable SHARONA JUSTIN Attphys Unavailable Savana Palacio Attphys Unavailable Savana Palacio Attphys Unavailable GEORGIE GARCIA Attphys Unavailable MILLER LEYVA Attphys Unavailable LIZZY, BRITNI Attphys Unavailable TIMOTHY JAVIER Attphys Unavailable DR YANI MENDES Admphys Unavailable CHERRY PARK Admphys Unavailable HARRISON MCCLOUD Admphys Unavailable Savana Palacio Admphys Unavailable GRISEL MORGAN Admphys Unavailable RYAN PALACIO M.D., Savana DAVIS Admphys TIMOTHY Orozco Admphys Unavailable Payers Payer Name Policy Type Policy Number Effective Date Expiration Date Rayne goodrich [employer] [id number] 2019-PresentPPO [id number] 2019 00:00:00 Deric Amaral [employer] Ppo [id number] 2019 00:00:0 0 [facility] [place] xxxxxxxxx [facility] ARRIOLA RULE [id number] 2019 00:00:00 [id number] WOM[facility] [id number], [place] [address] xxxxxxxxx 2018 00:00:00 [facility] [id number] [place] [address] xxxxxx 2017 00:00:00 2027 2 3:59:59 [facility] Problems Condition Name Condition Details Condition Category Status Onset Date Resolution Date Last Treatment Date Treating Clinician Comments Source Right arm cellulitis Right arm cellulitis Disease Active 00:00:00 Deric Amaral Schizoaffective disorder Schizoaffective disorder Disease Acti ve 2019-04-28 00:00:[address] [place] [address] Psychotic disorder Psychotic disorder Disease Active 2018-06-18 00:00:0 0 [facility] PTSD (post-traumatic stress disorder) PTSD (post-traumatic s tress disorder) Disease Active 2018-06-18 00:00:00 [facility] Marijuana abuse Marijuana abuse Disease Active 2018-06-18 00:00:00 [facility] Cellulitis of right leg Cellulitis of right leg Disease Active 2018-03-18 00:00:00 [facility] affected by growth restriction Preg[place] cy affected by growth restriction Disease Active 2017-12-04 00:00:00 Deric Amaral Suicidal ideation Suicidal ideation Disease Active 2017-12-04 00:00:00 Deric Amaral Polysubstance abuse Polysubstance abuse Disease Active 2017-12-04 00:00 :00 Deric Amaral Urinary tract infection affecting care [...] ction Disease Active 2016-10-28 00:00:00 [place] Osteomyelitis of finger Osteomyelitis of finger Disease Active 2016-10-28 00:00:[address] Bacterial skin infection Bacterial skin infection Disease Acti ve 2016-10-25 00:00:[address] Cellulitis of finger of right hand Cellulitis of finger of right hand Disease Active 2016-10-24 00:00:00 [place] Adjustment disorder with mixed anxiety and depressed m ood Adjustment disorder with mixed anxiety and depressed mood Disease Active 2015-10-25 00:00:00 [facility] Depression Depression Disease Active 2015-03-26 00:00:00 [facility] Polysubstance abuse Polysubstance abuse Disease Active 2015-03-13 00:00 :00 [facility] Other specified persistent mood disorders Other specif ied persistent mood disorders Disease Active 2015-01-10 00:00:00 [facility] Cocaine-induced mood disorder Cocaine-induced mood disorder Disease Active 2014-07-06 00:00:00 [facility] 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 Active 2014-07-06 00:00:00 [facility] Disorder, Substance Use Disorder, Substance Use Disease Active 2014-07-05 00:00:00 [facility] Depression, major, recurrent, severe with psychosis De pression, major, recurrent, severe with psychosis Disease Active 2012-12-30 00:00:00 [facility] Acute stress disorder Acute stress disorder Disease Active 201 09-07-14 00:00:00 [facility] Pelvic pain in female Pelvic pain in female Disease Active 201 08-10-05 00:00:00 [facility] Gastritis Problem Active [facility] Hb-SS disease with crisis Problem Active [facility] Drug ingestion Drug ingestion Disease Active [facility] Benzodiazepine abuse Benzodiazepine abuse Disease Active [facility] 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 Disease Active [facility] Cocaine use Cocaine use Disease Active [facility] Substance-induced disorder Substance-induced disorder Disease Active [facility] Chronic pain of right thumb Chronic pain of right thumb Disease Active [facility] Osteomyelitis Osteomyelitis Disease Active Ov erview: finger, [facility] Hyperthyroidism Hyperthyroidism Disease Active [facility] Fibroid, uterine Fibroid, uterine Disease Active [facility] Depression Depression Disease Active [facility] Anxiety Anxiety Disease Active [facility] Allergies, Adverse Reactions, Alerts Allergy Name Allergy Type Status Severity Reaction(s) Onset Date Inacti ve Date Treating Clinician Comments Source Other Propensity to adverse reactions Active Othe r (See Comments) 2020-04-12 00:00:00 Pt reports she could not take an tipsychotics [place] [facility] haloperidol DA Active U 2020-03-21 00:00:00 [facility] NSAIDS (Non-Steroidal Anti-Inflamma Allergy to substance Active M oderate 2019-12-30 00:00:00 [facility] Penicillin Allergy to substance Active Severe 2019-12-30 00:00:00 [facility] Tramadol Allergy to substance Active Moderate 2019-12-30 00:00:00 [facility] Ondansetron Allergy to substance Active Severe 2019-12-30 00:00:00 [facility] Phenazopyridine Allergy to substance Active Severe 2019-12-30 00:0 0:00 [facility] phenazopyridine HCl DA Active U 2019-06-22 00:00:00 [facility] ketorolac tromethamine DA Active U 2019-06-22 00:00:00 [facility] Penicillins DA Active U 2019-06-22 00:00:00 [facility] risperidone DA Active SV 2019-06-22 00:00:00 [facility] ondansetron DA Active U 2019-06-22 00:00:00 [facility] risperidone DA Active SV 2019-05-31 00:00:00 [facility] Risperidone Propensity to adverse reactions to drug Active Other (See Comments) 2019-05-25 00:00:00 Tongue swelling [place] Propensity to adverse reactions to drug Active Rash 2019-04-28 00:00:00 [place] [facility] Ondansetron Hcl Propensity to adverse reactions to drug Active Rash 2019-04-06 00:00:00 [place] [facility] Penicillins DA Active SV 2018-08-31 00:00:00 [facility] phenazopyridine DA Active SV 2018-08-31 00:00:00 [facility] ondansetron DA Active U 2017-12-31 00:00:00 [facility] Ondansetron Propensity to adverse reactions Active Rash 2017 00:00:00 [facility] Tramadol Propensity to adverse reactions to drug Active Rash 2017-12-07 00:00:00 [place] [facility] phenazopyridine HCl DA Active U 2017-11-26 00:00:00 [facility] ketorolac tromethamine DA Active U 2017-11-26 00:00:00 [facility] Penicillins DA Active U 2017-11-26 00:00:00 [facility] Ketorolac Propensity to adverse reactions to drug Active 2016-12-17 00:00:00 [place] [facility] Ketorolac Tromethamine Propensity to adverse reactions Active Rash 2016-12-07 00:00:00 [facility] Nsaids (Non-Steroidal Anti-Inflammatory Drug) Propensity to adverse reactions Active Anaphylaxis 2016-12-07 00:00:00 [facility] Nsaids (Non-Steroidal Anti-Inflammatory Drug) Propensi ty to adverse reactions to drug Active Anaphylaxis 2016-05-07 00:00:00 [place] Penicillins Propensity to adverse reactions to drug Active Anaphylaxis 2016-04-09 00:00:00 [place] [facility] Haloperidol Propensity to adverse reactions Active 2015 00:00:00 Dystonia [facility] Tramadol Propensity to adverse reactions Active Hives 2015-12 00:00:00 [facility] Penicillins Propensity to adverse reactions to drug Active 2015-03-26 00:00:00 [facility] Penicillins Propensity to adverse reactions Active Maria Antonia phylaxis, Rash 2013-05-31 00:00:00 [facility] Ketorolac Propensity to adverse reactions Active Rash , Swelling 2013-05-31 00:00:00 [facility] Haloperidol Lactate Propensity to adverse reactions to drug Active 2013-01-05 00:00:00 Dystonia [facility] Tramadol Propensity to adverse reactions to drug Active Hives 2012-02-08 00:00:00 [facility] Penicillins Propensity to adverse reactions to drug Active Rash 2011-03-24 00:00:00 [facility] Ketorolac Tromethamine Propensity to adverse reactions to drug Acti ve Swelling 2011-03-14 00:00:00 [facility] Phenazopyridine Propensity to adverse reactions to drug Active Hives 2011-03-07 00:00:00 No latex allergy [facility] Phenazopyridine Propensity to adverse reactions Active Rash, Hives, Anaphylaxis 2011-01-25 00:00:00 No latex allergy [facility] Family History Family Member Diagnosis Comments Start Date Stop Date Source Natural brother No Known Problems [place] [facility] Cousin No Known Problems [facility] Natural father No Known Problems Graciela feliz [facility] Maternal aunt No Known Problems [facility] Maternal grandfather No Known Problems [facility] Maternal grandfather Diabetes [facility] Maternal grandfather Hypertension [facility] Maternal grandmother No Known Problems [facility] Maternal uncle No Known Problems Graciela feliz [facility] Natural mother Cancer [facility] Natural mother Cancer [facility] Natural mother Renal Disease [facility] Natural mother Hypertension [facility] Natural mother Kidney disease [facility] Other No Known Problems [facility] Paternal aunt No Known Problems [facility]ous [facility] Paternal grandfather No Known Problems [facility] Paternal grandmother No Known Problems [facility] Paternal uncle No Known Problems Graciela feliz [facility] Natural sister No Known Problems [facility]a [facility] Social History Social Habit Start Date Stop Date Quantity Comments Source History of tobacco use Cigarette Smoker Deric Amaral Exposure to SARS-CoV-2 (event) Not sure Deric Amaral Sex Assigned At [facility] Tobacco use and exposure 2020-04-12 00:00:00 2020-04-12 00:00:00 Curr ent user Deric Amaral Cigarettes smoked current (pack per day) - Reported 00:00:00 2020-03-10 00:00:00 [facility] Cigarette pack-years 2018-06-17 00:00:00 2018-06-17 00:00:00 [facility] Alcohol intake 2018-06-17 00:00:00 2018-06-17 00:00:00 Current non-drinker of alcohol (finding) [facility] Alcohol Comment 2012-12-24 00:00:00 2012-12-24 00:00:00 denies [facility] Tobacco Comment 2011-04-23 00:00:00 2011-04-23 00:00:00 quit 1 month ago [facility] Smoking Status Start Date Stop Date Source Current some day smoker 2020-04-12 00:00:00 Tiffanie Amaral Current every day smoker 2020-03-10 00:00:00 [facility] Medications Ordered Medication Name Filled Medication Name Start Date Stop Da te Current Medication? Ordering Clinician Indication Dosage Frequency Signature (SIG) Comments Components Source diazePAM (Valium) 2 MG tablet 2020-04-12 00:00:00 2020-04-15 23: 59:00 No 2mg Q12H Take 1 tablet (2 mg total) b y mouth every 12 (twelve) hours as needed for anxiety for up to 3 days. [facility] Acetaminophen/Codeine Phosphate (Tylenol # 3*) 1 Ea TA B Acetaminophen/Codeine Phosphate (Tylenol # 3*) 1 Ea TAB 2020-04-08 01:29:00 Yes 1 Every 4 Hours as needed for Moderate Pain (4-6) [facility] Prednisone Prednisone 2020-04-08 01:29:00 Yes 60 Daily as needed for Moderate Pain (4-6) [facility] Promethazine Hcl (Phenergan Supp*) 25 Mg SUPP Prometha zine Hcl (Phenergan Supp*) 25 Mg SUPP 2020-04-08 01:29:00 Yes 50 E very 6 Hours as needed for Nausea And Vomiting [facility] ciprofloxacin (CIPRO) 500 MG tablet 2020-03-30 12:45:4 [...] (FLAGYL) 250 MG tablet 2020-03-27 22:41:48 Yes [id number] Take by mouth 3 (three) times a day. Unknown dose. Deric Amaral diazePAM (VALIUM) 5 MG tablet 2020-03-10 00:00:00 Yes 5mg Take 1 tablet (5 mg total) by mouth every 8 (eight) hours as needed for Anxiety. Max Daily Amount: 15 mg [facility] acetaminophen-codeine (TYLENOL #3) 300-30 mg per tablet 2020-03-08 00:00:00 2020-03-15 23:59:00 No 1{tbl} Take 1 tablet by mouth every 6 (six) hours as needed for Pain for up to 7 days. Max Daily Amount: 4 tablets [facility] promethazine (PHENERGAN) 25 MG tablet 2020-03-08 00:00 :00 2020-03-15 23:59:00 No 25mg Take 1 tablet ( 25 mg total) by mouth every 6 (six) hours as needed for Nausea for up to 7 days. [facility] Acetaminophen With Codeine (Tylenol With Codeine #3 Ta blet) 1 Each TABLET Acetaminophen With Codeine (Tylenol With Codeine #3 Tablet) 1 Each TABLET 2020-02-28 18:31:00 Yes 300 Every 6 Hour s as needed for Abdominal Pain [facility] LORazepam (ATIVAN) 0.5 MG tablet 2020-02-22 00:00:00 2020-02 23:59:00 No .5mg Take 1 tablet (0.5 m g total) by mouth 3 (three) times daily as needed for Anxiety for up to 10 days. Max Daily Amount: 1.5 mg [facility] tamsulosin (FLOMAX) 0.4 mg capsule [...] 10 days. Max Daily Amount: 8 tablets [facility] nitrofurantoin, macrocrystal-monohydrate, (MACROBID) 100 MG capsule 2019-12-25 00:00:00 2019-12-30 23:59:00 No 100mg Q.5D Take 1 capsule (100 mg total) by mouth 2 (two) times daily for 5 days. [facility] Acetaminophen With Codeine (Tylenol With Codeine #3 Ta blet) 1 Each TABLET Acetaminophen With Codeine (Tylenol With Codeine #3 Tablet) 1 Each TABLET 2019-12-01 12:34:00 Yes 300 Four Times Daily a s needed for Pain [facility] Promethazine Hcl (Phenadoz) 25 Mg SUPP.RECT Promethazi ne Hcl (Phenadoz) 25 Mg SUPP.RECT 2019-12-01 12:34:00 Yes 25 Th ree Times A Day as needed for Nausea, Vomiting [facility] Sulfamethoxazole/Trimethoprim (Bactrim Ds Tablet) 1 Ea ch TABLET Sulfamethoxazole/Trimethoprim (Bactrim Ds Tablet) 1 Each TABLET 2019-12-01 12:34:00 Yes 1 Twice A Day [facility] fluconazole (DIFLUCAN) 150 MG tablet 2019-11-06 00:00:00 Ye s Take 1 tab PO q 72 hours for 3 doses. [facility] acetaminophen-codeine (TYLENOL #3) 300-30 mg per tablet 2019-11-06 00:00:00 2019-11-16 23:59:00 No 1{tbl} Take 1-2 tablets by mouth every 6 (six) hours as needed for Pain for up to 10 days. Max Daily Amount: 8 tablets [facility] promethazine (PHENERGAN) 25 MG tablet 2019-11-06 00:00 :00 2019-11-13 23:59:00 No 25mg Take 1 tablet ( 25 mg total) by mouth every 6 (six) hours as needed for Nausea for up to 7 days. [facility] promethazine (PHENERGAN) 25 MG tablet [...] 12 doses. Max Daily Amount: 5 mg [facility] metroNIDAZOLE (FLAGYL) 500 MG tablet 2019-08-17 00:00: 00 2019-08-27 23:59:00 No 500mg [id number] Take 1 tablet (500 mg total) by mouth 3 (three) times daily for 10 days. [facility] ciprofloxacin HCl (CIPRO) 500 MG tablet 00:00:00 2019-08-24 23:59:00 No 500mg Q.5D Take 1 tablet (500 mg total) by mouth 2 (two) times daily for 7 days. [facility] doxycycline (VIBRAMYCIN) 50 MG capsule 6 00:00:00 [...] 10 days. Max Daily Amount: 8 tablets [facility] diazepam (VALIUM) 10 MG tablet 2019-06-22 11:40:00 2019-06-22 00 :00:00 No 10mg Take 10 mg by mouth every 6 (six) hours as needed. [facility] ARIPiprazole (ABILIFY) 5 MG tablet 2019-06-22 11:40:00 201 04-14-19 00:00:00 No 10mg QD Take 10 mg by mouth daily . [facility] citalopram (CELEXA) 20 MG tablet 2019-06-22 11:40:00 2019-06 00:00:00 No 20mg QD Take 20 mg by mouth daily. [facility] zolpidem (AMBIEN) 10 mg tablet 2019-06-22 11:40:00 2019-06-22 00 :00:00 No 10mg Take 10 mg by mouth every night as needed . [facility] acetaminophen-codeine (TYLENOL WITH CODEINE #3) 300-30 mg pe r tablet 2019-06-20 00:00:00 2019-06-23 23:59:00 No acute pain 1{tbl} Q6H Take 1-2 tablets by mouth every 6 (six) hours as needed for moderate pain for up to 3 days .Acute Pain. Deric Amaral acetaminophen-codeine (TYLENOL #3) 300-30 mg per tablet 2019-06-20 00:00:00 2019-06-23 23:59:00 No 1{tbl} Take 1-2 tablets by mouth. [facility] citalopram (CeleXA) 20 MG tablet 2019-04-30 00:00:00 [...] 2019-04-30 00:00: 00 2019-05-30 23:59:00 No 300mg [id number] Take 1 capsule (300 mg total) by [...] 2019-04-30 00:00 :00 2019-05-30 23:59:00 No 300mg Q.[id number] Take 1 capsule (300 mg total) by [...] 2 (two) times daily for 14 days. [facility] metroNIDAZOLE (FLAGYL) 500 MG tablet 2019-04-17 00:00: 00 2019-05-01 23:59:00 No 500mg Q.5D Take 1 tablet ( 500 mg total) by mouth 2 (two) times daily for 14 days. [facility] citalopram (CELEXA) 20 MG tablet 2019-01-21 00:00:00 2019-06 00:00:00 No 20mg QD Take 1 tablet (20 mg total) by mouth daily. [facility] citalopram (CELEXA) 20 mg tablet 2018-07-02 00:00:00 Yes PTSD (post- traumatic stress disorder) 20mg QD Take 1 tablet by mouth daily. [facility] citalopram (CELEXA) 20 MG tablet 2018-07-02 00:00:00 2019-07 00:00:00 No 20mg Take 20 mg by mouth. [facility] gabapentin (NEURONTIN) 400 mg capsule 2018-07-01 00:00:00 Yes PTSD (post- traumatic stress disorder) 400mg Take 1 capsule by mouth 3 times daily. [facility] nicotine polacrilex (NICORETTE) 2 mg Gum 2018-07-01 00:00:00 Yes PTSD (post-traumatic stress disorder) 2mg Place 1 Each inside cheek as needed for Other (nicotene). [facility] QUEtiapine (SEROQUEL) 100 mg tablet 2018-07-01 00:00:00 Yes PTSD (post- traumatic stress disorder) 100mg Take 1 tablet by mouth at b edtime nightly. [facility] QUEtiapine (SEROQUEL) 50 mg tablet 2018-07-01 00:00:00 Yes PTSD (post- traumatic stress disorder) 50mg Q.5D Take 1 tablet by mouth 2 times daily. [facility] QUEtiapine (SEROQUEL) 100 mg tablet 2018-05-04 00:00:00 Yes Polysubstance abuse 100mg Take 1 tablet by mouth at bedtime nightly for 1 4 days. [facility] gabapentin (NEURONTIN) 400 mg capsule 2016-04-20 00:00:00 Yes Polysubstance abuse 400mg Take 1 capsule by mouth 3 times da beverly for 7 days. [facility] gabapentin (NEURONTIN) 400 MG capsule 2016-04-20 00:00 :00 2019-07-28 00:00:00 No 400mg Take 400 mg by mouth. [facility] norgestimate-ethinyl estradiol 0.18/0.215/0.25 mg-35 mcg (28 ) per tablet 2013-08-12 00:00:00 Yes 1{tbl} Take 1 tablet by m outh. [facility] Immunizations Ordered Immunization Name Filled Immunization Name Date Status Comments Source Rho (D) Immune Globulin 2016-11-02 00:00:00 Completed Deric Amaral Tdap 2016-08-18 00:00:00 Completed Aren Amaral Vital Signs Vital Name Observation Time Observation Value Comments Source Systolic blood pressure 2020-04-12 17:39:00 155 mm[Hg] Deric Amaral Diastolic blood pressure 2020-04-12 17:39:00 98 mm[Hg] Deric Amaral Heart rate 2020-04-12 17:39:00 96 /min Deric [facility]ist Respiratory rate 2020-04-12 17:39:00 18 /min Tiffanie Amaral Oxygen saturation in Arterial blood by Pulse oximetry 04-12 17:39:00 99 /min Deric Amaral Body height 2020-04-12 13:05:00 165.1 cm Deric Amaral Body weight 2020-04-12 13:05:00 65.772 kg Deric Daveyist BMI 2020-04-12 13:05:00 24.13 kg/m2 [facility] Body temperature 2020-04-12 13:04:58 35.78 Madai [facility] Weight 2020-04-08 00:15:00 150 [lb_av] [facility] BMI (Body Mass Index) 2020-04-08 00:15:00 25.0 kg/m2 [facility] Systolic blood pressure 2020-04-04 01:13:00 114 mm[Hg] [facility] Diastolic blood pressure 2020-04-04 01:13:00 82 mm[Hg] [facility] Heart rate 2020-04-04 01:13:00 91 /min [facility] Body temperature 2020-04-04 01:13:00 36.33 Madai [facility] Respiratory rate 2020-04-04 01:13:00 20 /min [facility] Oxygen saturation in Arterial blood by Pulse oximetry 04-04 01:13:00 100 /min [facility] Body weight Measured 2020-03-10 04:42:00 65.772 kg [facility] BMI 2020-03-10 04:42:00 23.40 kg/m2 [facility] Body height 2020-03-08 12:15:00 167.6 cm [facility] Body Temperature 2020-02-28 18:48:00 99.3 [degF] [facility] Weight 2020-02-28 15:42:00 150 [lb_av] [facility] BMI (Body Mass Index) 2020-02-28 15:42:00 25.0 kg/m2 [facility] Weight 2019-12-30 21:00:00 150 [lb_av] [facility] BMI (Body Mass Index) 2019-12-30 21:00:00 25.0 kg/m2 [facility] Procedures Procedure Date / Time Performed Performing Clinician [facility] e COMPREHENSIVE METABOLIC PANEL 2020-04-12 14:45:00 Yann Navas am CREATINE KINASE, TOTAL (CPK) 2020-04-12 14:45:00 Perla Navas THYROID STIMULATING HORMONE 2020-04-12 14:45:00 Aly Navas T4, FREE 2020-04-12 14:45:00 Aly Navas ACETAMINOPHEN LEVEL 2020-04-12 14:45:00 Aly Navas SALICYLATE LEVEL 2020-04-12 14:45:00 Aly Navas ESTIMATED GFR 2020-04-12 14:45:00 Aly Navas URINE CULTURE 2020-04-12 13:50:00 Aly Navas URINE DRUGS OF ABUSE SCREEN 2020-04-12 13:50:00 Aly Navas URINALYSIS SCREEN AND MICROSCOPY, WITH REFLEX TO CULTURE 202 13:50:00 Aly Navas URINE CULTURE 2020-03-30 12:43:00 Corbin Leung [facility] URINALYSIS SCREEN AND MICROSCOPY, WITH REFLEX TO CULTURE 202 12:18:00 Corbin Leung HCG QUALITATIVE, URINE SCREEN 2020-03-30 12:18:[address] ABDOMEN PELVIS W CONTRAST 2020-03-30 11:57:05 Andrew Leung XR ABDOMEN ACUTE INC CHEST 1V 2020-03-30 10:58:51 Jonathan Leung HC COMPLETE BLD COUNT W/AUTO DIFF 2020-03-30 10:10:00 Corbin Leung PROTHROMBIN TIME WITH INR 2020-03-30 10:10:00 Corbin Leung COMPREHENSIVE METABOLIC PANEL 2020-03-30 10:10:00 MadhuJonathan Jewish LIPASE LEVEL 2020-03-30 10:10:00 Madhu Corbinranye [facility] TROPONIN 2020-03-30 10:10:00 Corbin Leung [facility] B NATRIURETIC PEPTIDE 2020-03-30 10:10:00 Juan José Leungs Tiffanie wright [facility] HCG QUALITATIVE, SERUM SCREEN 2020-03-30 10:10:00 Madhu Jonathan Leos Jewish ESTIMATED GFR 2020-03-30 10:10:00 Corbin Leung Id thodist CREATINE KINASE, TOTAL (CPK) 2020-03-30 10:10:00 Madhu Andrew avni Amaral ECG ED PRELIMINARY INTERPRETATION 2020-03-30 09:48:38 Madhu Corbinrayne Amaral ECG 12-LEAD 2020-03-30 09:37:14 Madhu Corbin Elos Id thodist COMPREHENSIVE METABOLIC PANEL 2020-03-08 13:29:00 Luca Malcolm Ch [facility] LIPASE 2020-03-08 13:29:00 Luca Malcolm [facility] HCG, SERUM, QUALITATIVE 2020-03-08 13:29:00 Luca Malcolm [facility] CBC W/PLT COUNT & AUTO DIFFERENTIAL 2020-03-08 13:29:00 Raf Malcolm [facility] URINALYSIS W/ MICROSCOPIC 2020-03-08 12:42:00 Luca Malcolm [facility] CT of abdomen and pelvis without contrast 2020-02-28 00:00:00 [facility] CT ABDOMEN/PELVIS WITHOUT IV CONTRAST 2020-01-14 19:17:00 Nathaly Downs [facility] BASIC METABOLIC PANEL (7) 2020-01-14 18:52:00 Nathaly Downs sara [facility] LIPASE 2020-01-14 18:52:00 Nathaly DownsSepideh [facility] CBC W/PLT COUNT & AUTO DIFFERENTIAL 2020-01-14 18:52:00 Alli Downs [facility] HEPATIC FUNCTION PANEL 2020-01-14 16:40:00 Nathaly Downs [facility] URINE CULTURE 2020-01-14 16:29:00 Nathaly Downs [facility] SCREEN, URINE 2020-01-14 16:29:00 Nathaly Downs e [facility] RAPID DRUG SCREEN, URINE 2020-01-14 16:29:00 Nathaly Downs [facility] URINALYSIS W/ MICROSCOPIC 2020-01-14 16:29:00 Nathaly Downs [facility] URINE CULTURE 2020-01-12 22:30:00 Mart High URINALYSIS SCREEN AND MICROSCOPY, WITH REFLEX TO CULTURE 202 22:09:[address] ABDOMEN PELVIS WO CONTRAST 2020-01-12 21:45:57 Christi High OCCULT BLOOD, STOOL 2020-01-12 21:13:00 Mart High US PELVIC TRANSVAGINAL 2020-01-12 21:04:46 Mart High urbannagarry Amaral US PELVIC TRANSABDOMINAL 2020-01-12 21:04:22 Mart High COMPREHENSIVE METABOLIC PANEL 2020-01-12 17:50:00 Christi High ESTIMATED GFR 2020-01-12 17:50:00 Mart High HC COMPLETE BLD COUNT W/AUTO DIFF 2020-01-12 17:49:00 Mart High LIPASE LEVEL 2020-01-12 17:49:00 Mart High HCG QUALITATIVE, SERUM SCREEN 2020-01-12 17:49:00 Christi High RAPID DRUG SCREEN, URINE 2020-01-01 09:06:00 Agata Park Ma [facility] BASIC METABOLIC PANEL (7) 2020-01-01 06:24:00 Agata Park [facility] TSH/FREE T4 IF INDICATED 2020-01-01 06:24:00 Agata Park Ma [facility] T4, FREE 2020-01-01 06:24:00 Agata Park [facility] CBC W/PLT COUNT & AUTO DIFFERENTIAL 2020-01-01 06:24:00 Agata Rodriges [facility] CT ABDOMEN/PELVIS WITHOUT IV CONTRAST 2019-12-25 04:54:00 Stone, [facility] URINE CULTURE 2019-12-25 02:13:00 Stone, [facility] BASIC METABOLIC PANEL (7) 2019-12-25 02:13:00 Stone, [facility] HEPATIC FUNCTION PANEL 2019-12-25 02:13:00 Stone, [facility] LIPASE 2019-12-25 02:13:00 Stone, [facility] SCREEN, URINE 2019-12-25 02:13:00 Stone, [facility] URINALYSIS W/ MICROSCOPIC 2019-12-25 02:13:00 Stone, [facility] LACTIC ACID, VENOUS 2019-12-25 02:10:00 Stone, Sepideh [facility] CBC W/PLT COUNT & AUTO DIFFERENTIAL 2019-12-25 02:10:00 Stone, Alli eric Jil [facility] CT ABDOMEN/PELVIS WITH IV CONTRAST 2019-11-06 15:59:00 StoneYan dana [facility] SCREEN, URINE 2019-11-06 15:11:00 Stone, [facility] URINALYSIS W/ MICROSCOPIC 2019-11-06 15:11:00 Stone, [facility] HIV-1 ANTIGEN WITH HIV-1/2 ANTIBODY 2019-11-06 13:58:00 Stone, Alli blackmany [facility] WET PREP 2019-11-06 13:47:00 Nathaly Downs [facility] STD PANEL - CT/GC RNA 2019-11-06 13:47:00 Nathaly Downs [facility] LIPASE 2019-11-06 13:47:00 Daron Jaimes [facility] LACTIC ACID, VENOUS 2019-11-06 13:47:00 Daron Jaimes CH [facility] BASIC METABOLIC PANEL (7) 2019-11-06 13:47:00 Daron Jaimes [facility] HEPATIC FUNCTION PANEL 2019-11-06 13:47:00 Daron Jaimes [facility] CBC W/PLT COUNT & AUTO DIFFERENTIAL 2019-11-06 13:19:00 Daron Jaimes [facility] PERMANENT LAB REPORT - SCAN 2019-09-29 15:33:16 Provider, Linda t Scanning [facility] US PELVIS WITH ENDOVAG WITH DOPPLER 2019-09-24 12:15:00 Daron Jaimes [facility] SCREEN, URINE 2019-09-24 09:56:00 Daron Jaimes [facility] URINALYSIS W/ REFLEX URINE CULTURE 2019-09-24 09:56:00 Daron Jaimes [facility] US PELVIC TRANSABDOMINAL 2019-09-09 19:35:00 Nirmal Gutierrez URINE CULTURE 2019-09-09 17:54:00 Nirmal Gutierrez HC COMPLETE BLD COUNT W/AUTO DIFF 2019-09-09 16:55:00 Steve Gutierrez COMPREHENSIVE METABOLIC PANEL 2019-09-09 16:55:00 Nirmal Gutierrez LIPASE LEVEL 2019-09-09 16:55:00 Nirmal Gutierrez URINALYSIS SCREEN AND MICROSCOPY, WITH REFLEX TO CULTURE 16:55:00 Nirmal Gutierrez HCG QUALITATIVE, SERUM SCREEN 2019-09-09 16:55:00 Nirmal Gutierrez URINE DRUGS OF ABUSE SCREEN 2019-09-09 16:55:00 Nirmal Gutierrez ESTIMATED GFR 2019-09-09 16:55:[address] ABDOMEN/PELVIS WITH IV CONTRAST 2019-08-17 12:56:00 Daron Jaimes [facility] SCREEN, URINE 2019-08-17 12:33:00 Daron Jaimes [facility] BASIC METABOLIC PANEL (7) 2019-08-17 11:37:00 Daron Jaimes [facility] LACTIC ACID, VENOUS 2019-08-17 11:37:00 Daron Jaimes CH I [facility] HEPATIC FUNCTION PANEL 2019-08-17 11:37:00 Daron Jaimes [facility] LIPASE 2019-08-17 11:37:00 Daron Jaimes [facility] CBC W/PLT COUNT & AUTO DIFFERENTIAL 2019-08-17 11:37:00 Daron Jaimes [facility] BASIC METABOLIC PANEL 2019-08-09 04:45:00 [...] AEROBIC & ANAEROBIC 2019-08-07 21:20:00 Ty, Nora garcia Nena Amaral US PELVIS WITH ENDOVAG WITH DOPPLER 2019-08-03 01:44:00 St Alex uart [facility] CT ABDOMEN/PELVIS WITH IV CONTRAST 2019-08-02 23:01:00 Reese Johnson art [facility] COMPREHENSIVE METABOLIC PANEL 2019-08-02 22:21:00 Delmer Johnson E rich [facility] LIPASE 2019-08-02 22:21:00 Delmer Johnson [facility] CBC W/PLT COUNT & AUTO DIFFERENTIAL 2019-08-02 21:07:00 St Alex uart [facility] SCREEN, URINE 2019-08-02 21:00:00 AlexDelmer mclain C [facility] URINALYSIS W/ MICROSCOPIC 2019-08-02 21:00:00 Alexrayne Delmer [facility] COMPREHENSIVE METABOLIC PANEL 2019-07-28 19:09:00 Luca Malcolm Ch [facility] LIPASE 2019-07-28 19:09:00 Luca Malcolm [facility] SCREEN, URINE 2019-07-28 19:09:00 Luca Malcolm CH I [facility] URINALYSIS W/ MICROSCOPIC 2019-07-28 19:09:00 Luca Malcolm [facility] CBC W/PLT COUNT & AUTO DIFFERENTIAL 2019-07-28 19:09:00 Raf Malcolm [facility] (MANUAL DIFFERENTIAL) 2019-07-28 19:09:00 Luca Malcolm [facility] PELVIC TRANSVAGINAL 2019-06-21 00:11:35 Raeann Tatum US PELVIC TRANSABDOMINAL 2019-06-21 00:11:[address] ABDOMEN PELVIS W CONTRAST 2019-06-20 23:14:46 Harsh, Raeann Amaral URINE CULTURE 2019-06-20 21:23:00 Harsh, Raeann Amaral GRAM STAIN 2019-06-20 21:23:00 Harsh, Raeann Amaral HC COMPLETE BLD COUNT W/AUTO DIFF 2019-06-20 20:58:00 Harsh, Meenakshi Elmore COMPREHENSIVE METABOLIC PANEL 2019-06-20 20:58:00 Raeann Tatum LIPASE LEVEL 2019-06-20 20:58:00 Harsh, Raeann Amaral ESTIMATED GFR 2019-06-20 20:58:00 Raeann Tatum URINALYSIS SCREEN AND MICROSCOPY, WITH REFLEX TO CULTURE 201 04-14-17 20:54:00 Raeann Tatum HCG QUALITATIVE, URINE SCREEN 2019-06-20 20:54:00 Raeann Tatum HC COMPLETE BLD COUNT W/AUTO DIFF 2019-06-08 07:25:00 Mart High COMPREHENSIVE METABOLIC PANEL 2019-06-08 07:25:00 Christi High ESTIMATED GFR 2019-06-08 07:25:00 Mart High kellie Amaral URINE DRUGS OF ABUSE SCREEN 2019-06-08 07:02:00 Marly High HCG QUALITATIVE, SERUM SCREEN 2019-06-08 07:02:00 Christi High THYROID STIMULATING HORMONE 2019-06-08 07:02:00 Marly High T4, FREE 2019-06-08 07:02:00 Mart High Leos Jewish HC COMPLETE BLD COUNT W/AUTO DIFF 2019-05-27 14:45:00 Tirmizi, A donnie H. Deric Amaral COMPREHENSIVE METABOLIC PANEL 2019-05-27 14:45:00 Tirmizi, Aatif H. Deric Jewish T4, FREE 2019-05-27 14:45:00 Tirmizi, Aatif H. Deric Me thodist THYROID STIMULATING HORMONE 2019-05-27 14:45:00 Tirmizi, Aatif H . Deric Jewish CREATINE KINASE, TOTAL (CPK) 2019-05-27 14:45:00 Tirmizi, Aatif H. Deric Amaral HCG QUALITATIVE, SERUM SCREEN 2019-05-27 14:45:00 Tirmizi, Aatif H. Deric Jewish ACETAMINOPHEN LEVEL 2019-05-27 14:45:00 Tirmizi, Aatif H. [place] n Jewish SALICYLATE LEVEL 2019-05-27 14:45:00 Tirmizi, Aatif HKaylee Carson ethodist ESTIMATED GFR 2019-05-27 14:45:00 Tirmizi, Aatif H. Deric Me thodist ECG 12-LEAD 2019-05-27 14:40:52 Shreyas Alanis ECG ED PRELIMINARY INTERPRETATION 2019-05-27 14:09:19 Tirmizi, A donnie HKaylee Amaral HC COMPLETE BLD COUNT W/AUTO DIFF 2019-05-25 15:00:00 Luis Navas BASIC METABOLIC PANEL 2019-05-25 15:00:00 Aly Navas Jewish ESTIMATED GFR 2019-05-25 15:00:00 Aly Navas HC COMPLETE BLD COUNT W/AUTO DIFF 2019-05-24 15:08:00 Marcos Rincon COMPREHENSIVE METABOLIC PANEL 2019-05-24 15:08:00 Sole Rincon T4, FREE 2019-05-24 15:08:00 Sole Rincon M ethodist THYROID STIMULATING HORMONE 2019-05-24 15:08:00 Sole Rincon HCG QUALITATIVE, SERUM SCREEN 2019-05-24 15:08:00 Sole Rincon ACETAMINOPHEN LEVEL 2019-05-24 15:08:00 Sole Rincon [place] SALICYLATE LEVEL 2019-05-24 15:08:00 Sole Rincon ESTIMATED GFR 2019-05-24 15:08:00 Sole Rincon ethodist URINE CULTURE 2019-05-24 14:24:00 Sole Rincon ethodist URINALYSIS SCREEN AND MICROSCOPY, WITH REFLEX TO CULTURE 201 04-13-21 14:24:00 Sole Rincon URINE DRUGS OF ABUSE SCREEN 2019-05-24 14:24:00 Sole Rincon Plan of Care Planned Activity Planned Date Details Comments Source Future Scheduled Test 2020-05-04 00:00:00 IMM Influenza Seas onal May to October (>/= 19 yrs) [code = IMM Influenza Seasonal May to October (>/= 19 yrs)] [facility] Future Scheduled Test 2020-03-04 00:00:00 INFLUENZA VACCINE [code = INFLUENZA VACCINE] [facility] Future Scheduled Test 2004-12-20 00:00:00 Screening for corby gnant neoplasm of cervix (procedure) [code = 057110106] Deric Posada Future Scheduled Test 2004-12-20 00:00:00 Screening for corby gnant neoplasm of cervix (procedure) [code = 815540304] [facility] Instructions Sickle Cell Crisis [facility] Instructions [place] Diet - Adult [facility] Encounters Start Date/Time End Date/Time Encounter Type Admission Type Attendi [facility] Care Department Encounter ID Source 2018-06-17 17:18:00 Inpatient [facility] [id number] [facility] 2018-04-29 17:27:00 Inpatient [facility] [id number] [facility] 2020-04-12 00:00:00 2020-04-12 00:00:00 Emergency BRIAN FOLEY [facility] [id number] [facility] 2020-04-08 00:30:00 2020-04-08 01:30:00 [id number] 2020-03-30 00:00:00 2020-03-30 00:00:00 Emergency JONATHAN LEUNG [facility] [id number] [facility] 2020-03-27 00:00:00 2020-03-27 00:00:00 Emergency SPENCER BURROWS [facility] [id number] [facility] 2020-03-25 08:21:00 2020-03-25 08:21:00 Emergency E SW [facility] [id number] [facility] 2020-03-17 20:51:00 2020-03-17 22:59:00 Emergency E FEDERICO MENDSE [facility] [id number] 2020-02-28 14:46:00 2020-02-28 18:47:00 Departed Emergency Room 1 YANELIS LOLY [facility] [id number] [facility] 2020-02-20 09:17:00 2020-02-20 09:17:00 Emergency E MHSW [facility] [id number] [facility] 2020-01-20 15:14:01 2020-01-20 19:42:00 Emergency ER PATRICK ARAUJO [facility] [id number] MD Gee 2020-01-20 16:22:25 2020-01-20 16:57:31 Emergency EL ARSLAN ARAUJO [facility] [id number] MD Gee 2020-01-17 12:30:00 2020-01-17 12:30:00 Emergency E [facility]FB [facility] [id number] [facility] 2020-01-12 13:49:00 2020-01-12 13:49:00 Emergency E MHFB [facility]FB [id number] [facility] 2020-01-12 00:00:00 2020-01-12 00:00:00 Emergency TIHSA HIGH MADELINE [facility] [id number] [facility] 2020-01-10 18:24:00 2020-01-10 18:24:00 Outpatient E [facility] MED [id number] [facility] 2019-12-30 20:40:00 2019-12-30 22:06:00 Departed Emergency Room [facility] [id number] [facility] Patients [facility] 2019-12-01 10:56:00 2019-12-01 13:27:00 Departed Emergency Room 1 ED WAGNER [facility] [id number] I [facility] 2019-11-30 15:08:00 2019-11-30 15:08:00 Emergency E MHBL MHBL [id number] [facility] 2019-09-22 12:14:00 2019-09-22 12:14:00 Emergency E MHSE MHSE [id number] [facility] 2019-09-14 14:36:00 2019-09-14 14:36:00 Emergency E MHBL MHBL [id number] BL 2019-09-09 00:00:00 2019-09-09 00:00:00 Emergency GEORGE JONES [place] [id number] [facility] 2019-08-12 21:23:00 2019-08-12 21:23:00 Emergency E MHFB MHFB [id number] [facility] 2019-08-07 00:00:00 2019-08-09 00:00:00 Inpatient SHAHRAM MCCLOUD [facility] [id number] [facility] 2019-08-04 10:42:00 2019-08-04 10:42:00 Emergency E MHBL MHBL [id number] [facility] 2019-06-20 00:00:00 2019-06-21 00:00:00 Emergency RAEANN TATUM [place] [id number] [facility] 2019-06-08 00:00:00 2019-06-08 00:00:00 Emergency HIGHTISHA [place] [id number] [facility] 2019-06-06 19:53:00 2019-06-06 19:53:00 Emergency E MHKM MHKM [id number] [facility] 2019-05-27 00:00:00 2019-05-29 00:00:00 Emergency [place] [id number] [facility] 2019-05-05 00:27:00 2019-05-05 00:27:00 Emergency E MHKM MHKM [id number] [facility] 2019-04-10 20:33:00 2019-04-10 20:33:00 Emergency E MHFB MHFB [id number] FB 2019-04-06 00:00:00 2019-04-06 00:00:00 Emergency OMAR BROWN [facility] [id number] Deric Amaral 2019-02-16 00:56:00 2019-02-16 00:56:00 Emergency E [facility] [id number] [facility] 2019-01-06 11:53:00 2019-01-06 11:53:00 Emergency E [facility] [id number] [facility] 2018-10-21 11:07:00 2018-10-21 11:07:00 Emergency E [facility] [id number] [facility] 2018-07-22 00:00:00 2018-07-22 00:00:00 Outpatient [facility] [id number] [facility] 2018-07-17 00:00:00 2018-07-17 00:00:00 Outpatient [facility] [id number] [facility] 2018-07-09 02:29:00 2018-07-15 11:59:00 Inpatient 1 Ryan Oviedo, Ryan [facility] [id number] [facility] 2018-06-29 15:12:59 2018-06-29 15:12:59 Outpatient [facility] [id number] [facility] 2018-06-23 08:00:36 2018-06-23 08:00:36 Outpatient [facility] [id number] [facility] 2018-06-18 12:41:11 2018-06-18 12:41:11 Outpatient [facility] [id number] [facility] 2018-06-17 13:53:30 2018-06-17 13:53:30 Emergency [facility] [id number] [facility] 2018-06-17 10:57:15 2018-06-17 10:57:15 Emergency [facility] [id number] [facility] 2018-06-16 21:30:44 2018-06-16 21:30:44 Emergency [facility] [id number] [facility] 2018-05-19 00:00:00 2018-05-19 00:00:00 Outpatient [facility] [id number] [facility] 2018-05-15 00:00:00 2018-05-15 00:00:00 Outpatient [facility] [id number] [facility] 2018-05-05 11:09:57 2018-05-05 11:09:57 Outpatient [facility] [id number] [facility] 2018-04-26 19:41:32 2018-04-26 19:41:32 Emergency [facility] [id number] [facility] 2016-12-12 16:24:00 2016-12-12 16:24:00 Emergency E [facility] [id number] [facility] Results Test Description Test Time Test Comments Results Result Comments Source T4, free 2020-04-12 15:48:49 Test Item T4, free (test code = 3024-7) 0.8 ng/dL 0.8-1.8 Deric MethodistThyroid stimulating [id number] 15:48:49* Test Item Value Reference Range Interpretation Comments TSH (test code = 3016-3) 0.28 0.55- 4.78 uIU/mL L Lab Interpretation (test code = 64211-7) Abnormal [place] MethodistSalicylate [id number] 15:47:35* Test Item Value Reference Range Interpretation Comments Salicylate (test code = 4024-6) <0.4 mg/dL Therapeutic Range: 5 - 30 mg/dL [place] MethodistAcetaminophen [id number] 15:47:35* Test Item Value Reference Range Interpretation Comments Acetaminophen level (test code = 3298-7) <15.9 ug/mL Therapeutic 10- 30 ug/mL Possible Toxicity 150-200 ug/mL Probable Toxicity >200 ug/mL Leos MethodistComprehensive metabolic [id number] 15:37:55* Test Item Value Reference Range Interpretation Comments Sodium (test code = 2951-2) 136 135- 148 mEq/L Potassium (test code = 2823-3) 5.3 3.5- 5.0 mEq/L H Specimen hemolyzed Chloride (test code = 2075-0) 100 99- 109 mEq/L CO2 (test code = 2027-9) 22 24- 31 mEq/L L Anion gap (test code = 46918-2) 14@ANIO 7- 15 mEq/L BUN (test code = 3094-0) 9 mg/dL 8-24 Creatinine (test code = 2160-0) 0.51 mg/dL 0.5-0.9 Glucose (test code = 2345-7) 83 mg/dL 65-99 Calcium (test code = 35900-0) 9.3 mg/dL 8.6-10.6 Protein (test code = 2885-2) 7.2 g/dL 6.3-8.2 Albumin (test code = 1751-7) 3.7 g/dL 3.5-5 A/G ratio (test code = 1759-0) 1.1 0.7-3.8 Alkaline phosphatase (test code = 6768-6) 44 U/L 30-115 AST (test code = 1920-8) 40 U/L 15-46 ALT (test code = 1742-6) 11 U/L 10-55 Total bilirubin (test code = 1974-2) <0.3 0.2-1.2 Lab Interpretation (test code = 60517-8) Abnormal [place] MethodistAlcohol level, [id number] 15:37:55* Test Item Value Reference Range Interpretation Comments Alcohol percent (test code = 5643-2) None Detected % Normal None DetectedLegal Intoxication in [place] 80 mg/dL (0.08%) - Whole BloodToxic Concentration 200 mg/dL (0.2%)Potentially Fatal 350 - 500 mg/dL (0.35 - 0.5%) [place] MethodistCreatine kinase, total (CPK)2020-04-12 15:37:55* Test Item Value Reference Range Interpretation Comments Creatine kinase (test code = 2157-6) 90 U/L 35-200 [place] MethodistEstimated [id number] 15:37:55* Test Item Value Reference Range Interpretation Comments Estimated GFR (test code = 5488) >=90 mL/min/1.73 m2 Catergory Units InterpretationG1 >=90 Normal or highG2 60-89 Mildly rndxtdchyD2t 45-59 Mildly to moderately ptnyxjhsoN5r 30-44 Moderately to severely decreasedG4 15-29 Severely decreasedG5 <15 Kidney failureThe eGFR was calculated using the Chronic Kidney Disease Epidemiology Collaboration (CKD-EPI) equation. Interpretation is based on recommendations of the National Kidney Foundation-Kidney Disease Outcomes Quality Initiative (NKF-KDOQI) published in 2014. [place] JewishUrine drugs of abuse saothi0046-78-21 14:36:41* Test Item Value Reference Range Interpretation Comments Amphetamine screen, urine (test code = 3349-8) Negative Barbiturate screen, urine (test code = 3377-9) Negative Benzodiazepine screen, urine (test code = 3390-2) Negative Cocaine screen, urine (test code = 3397-7) Negative Methadone metabolite (EDDP), urine (test code = 03313-0) Negative Opiates screen, urine (test code = 3879-4) Positive A Oxycodone screen, urine (test code = 45286-8) Negative Phencyclidine screen, urine (test code = 3936-2) Negative Tricyclic screen, urine (test code = 81521-3) Negative Cannabinoid screen, urine (test code = 3427-2) Negative Drug screen minimum concentration of detectabilityAmphetamines 1000 ng/mLBarbiturates 200 ng/mLBenzodiazepines 300 ng/mLCocaine 300 ng/mLMethadone 300 ng/mLOpiates 300 ng/mLOxycodone 300 ng/mLPhencyclidine 25 ng/mLCannabinoids 50 ng/mLTricyclics 1000 ng/mLResults are from screening tests and should only be used for medical evaluation. Drug testing for legal purposes requires definitive (or confirmatory) testing methods, which are available upon request. Contact the laboratory if definitive testing is required. Lab Interpretation (test code = 17352-6) Abnormal Deric MethodistUrine [id number] 14:27:16* Test Item Value Reference Range Interpretation Comments Urine culture (test code = 6345853) SEE COMMENT Bacteriuria screen negative. Leos MethodistUrinalysis screen and microscopy, with reflex to culture 2020-04-12 14:27:15* Test Item Value Reference Range Interpretation Comments Specimen site (test code = 3024858) Clean catch Color, UA (test code = 5778-6) Yellow Appearance, UA (test code = 5767-9) Sl Cloudy Specific gravity, UA (test code = 5811-5) 1.011 1.001-1.035 pH, UA (test code = 5803-2) 8.0 5.0-8.5 Protein, UA (test code = 57971-5) Negative Negative Glucose, UA (test code = 54692-1) Negative Negative Ketones, UA (test code = 2514-8) Negative Negative Bilirubin, UA (test code = 5770-3) Negative Negative Blood, UA (test code = 5794-3) Negative Negative Nitrite, UA (test code = 5802-4) Negative Negative Urobilinogen, UA (test code = 20280-5) <2.0 <2.0 Leukocyte esterase, UA (test code = 5799-2) Negative Negative Epithelial cells, UA (test code = 5787-7) >20 /HPF WBC, UA (test code = 5821-4) 2 0- 4 /HPF RBC, UA (test code = 16689-7) None seen 0- 5 /HPF Bacteria, UA (test code = 37888-9) Few None seen Yeast, UA (test code = 83006-2) None seen Yeast with pseudohyphae, UA (test code = 45859-6) None seen Leos MethodistECG 12 [id number] 16:45:53* Test Item Value Reference Range Interpretation Comments Ventricular rate (test code = 253) 116 Atrial rate (test code = 255) 116 [place] interval (test code = 266) 132 QRSD [...] wave inversion now evident in Inferior leads- Leos MethodisthCG qualitative, urine [id number] 12:33:54* Test Item Value Reference Range Interpretation Comments hCG qualitative, urine (test code = 2106-3) Negative Sensitivity of HCG test: 25 mIU/ml Leos MethodistCT Abdomen Pelvis W [id number] 12:05:31Hm Interface, Radiology Results - 03/30/2020 12:08 PM CDTEXAMINATION: CT ABDOMEN PELVIS [...] perfor ation, ascites, fluid collection or hydronephrosis. [facility]-[id number] [place] MethodistXR Abdomen Acute Inc [id number] 11:11:54Hm Interface, Radiology Results 03/30/2020 11:15 AM CDTEXAMINATION: XR ABDOMEN ACUTE [...] within the asc ending colon may indicate constipation.[id number] MethodistLipase level 2020-03-30 10:55:20* Test Item Value Reference Range Interpretation Comments Lipase (test code = 3040-3) 20 U/L 13-60 [facility] [id number] 10:54:06* Test Item Value Reference Range Interpretation Comments BNP (test code = 29678-1) 14 pg/mL 0-100 [place] CwrvbdottAsrdekgm3754-13-24 10:53:45* Test Item Value Reference Range Interpretation Comments Troponin (test code = 65835-9) <0.006 0-0.04 In patients suspected of having [...] OR decreased by less than 0.020 ng/mL [facility] with [id number] 10:44:39* Test Item Value Reference Range Interpretation Comments Prothrombin time (test code = 5902-2) 13.0 11.5- 14.5 sec INR (test code = 04838-8) 1.0 Th e International Normalized Ratio (INR) is a therapeutic monitoring tool for patients who are stable on oral anticoagulant therapy. An INR of 2.0-3.0 is suggested for deep vein thrombosis/pulmonary embolism. [facility] qualitative, serum xidbvk2268-29-19 10:41:03* Test Item Value Reference Range Interpretation Comments hCG qualitative, serum (test code = 2118-8) Negative Sensitivity of HCG test: 25 mIU/mL [facility] with platelet and ockalulehiey9490-07-10 10:37:16* Test Item Value Reference Range Interpretation Comments WBC (test code = 11058-1) 4.2 4.5- 11.0 k/uL L RBC (test code = 71673-3) 3.96 m/uL 4.2-5.5 L HGB (test code = 718-7) 12.9 g/dL 12-16 HCT (test code = 4544-3) 37.9 % 37-47 MCV (test code = 787-2) 95.7 fL 82-100 MCH (test code = 785-6) 32.6 pg 27-34 MCHC (test code = 786-4) 34.0 g/dL 31-37 RDW - SD (test code = 87687-1) 42.2 fL 37-55 MPV (test code = 84375-6) 10.7 fL 6.9-11 Platelet count (test code = 55898-6) 263 K/uL 150-400 Nucleated RBC (test code = 80485-2) 0.00 /100 WBC Neutrophils (test code = 85054-7) 58.1 % 39-69 Lymphocytes (test code = 55360-4) 30.8 % 25-45 Monocytes (test code = 36623-5) 6.5 % 0-10 Eosinophils (test code = 47181-8) 3.4 % 0-5 Basophils (test code = 59547-4) 1.0 % 0-1 Immature granulocytes (test code = 86988-7) 0.2 % 0-1 Lab Interpretation (test code = 66893-2) Abnormal [facility] ED Preliminary Interpretation - Not an Pkwmz5953-82-65 09:48:38* Test Item Value Reference Range Interpretation Comments RADHA (test code = RADHA) Corbin Leung MD 12:48 [facility] ED Preliminary Interpretation - Not an OrderPerformed by: Corbin Leung MDAuthorized by: Corbin Leung MD ECG reviewed by ED Physician in the a bsence of a senior financial reporting analyst: yes Interpretation: Interpretation: abnormal Rate: ECG rate: 116 ECG rate assessment: tachycardic Rhythm: Rhythm: sinus tachycardia Ectopy: Ectopy: none QRS: QRS axis: Normal QRS intervals: NormalConduction: Conduction: normal ST segments: ST segments: Non- specificT waves: T waves: non-specific Comments: Sinus tachycardia, nonspecific ST-T changes Lab Interpretation (test code = 94476-5) Abnormal [place] [facility] [id number] 17:52:00* Test Item Value Reference Range Interpretation [...] Chk SOURCE OF URINE: CLEAN CATCHUR HCG [id number] 17:52:00* Test Item Value Reference Range Interpretation Comments UR HCG QUAL (test code = HCGQLU) NEGATIVE NEGATIVE SOURCE OF URINE: CLEAN CATCHDRUGS OF ABUSE SCREEN [id number] 17:52:00* Test Item Value Reference Range Interpretation Comments UR COCAINE (test code = COCAU) NEGATIVE NEGATIVE Cut off Value: 300 ng/mL UR CANNABINOIDS (THC) (test code = CANU) NEGATIVE NEGATIVE Cut off Value: 50 ng/mL UR AMPHETAMINE (test code = AMPHU) POSITIVE NEGATIVE [facility]: 1000 ng/mL UR BARBITURATE QUAL [...] 25 ng/mL SOURCE OF URINE: CLEAN CATCHURN [id number] 17:52:00* Test Item Value Reference Range Interpretation Comments URN AMPHETAMINE (test code = AMPHETURN) POSITIVE NEGATIVE A RESULTS CALLED TO ZACKERY ChamberlainREAD BACK & CONFIRMED? ADEEL ConstantinoLAB.IR1 03/22/20 4859 RESULTS SENT FOR CONFIRMATION OF SCREEN RESULTSSEE OTHER SPECIMEN FOR CONFIRMATION RESULTS These results are to be used only for medical (ie,treatment) purposes. Unconfirmed screening results must notbe used for non-medical purposes (eg, employment testing)DETECTION CUT OFF: 500 ng/mLCut off Value: 1000 ng/mL SOURCE OF URINE: CLEAN CATCHURINALYSIS [id number] 17:47:00* Test Item Value Reference Range Interpretation [...] Chk SOURCE OF URINE: CLEAN CATCHUR HCG [id number] 17:47:00* Test Item Value Reference Range Interpretation Comments UR HCG QUAL (test code = HCGQLU) NEGATIVE NEGATIVE SOURCE OF URINE: CLEAN CATCHDRUGS OF ABUSE SCREEN [id number] 17:47:00* Test Item Value Reference Range Interpretation [...] 25 ng/mL SOURCE OF URINE: CLEAN CATCHURN [id number] 17:47:00* Test Item Value Reference Range Interpretation Comments URN AMPHETAMINE (test code = AMPHETURN) POSITIVE NEGATIVE A RESULTS CALLED TO ZACKERY ChamberlainREAD BACK & CONFIRMED? YESBY F.LAB.IR1 03/22/20 1746 RESULTS SENT FOR CONFIRMATION OF SCREEN RESULTSSEE OTHER SPECIMEN FOR CONFIRMATION RESULTS These results are to be used only for medical (ie,treatment) purposes. Unconfirmed screening results must notbe used for non-medical purposes (eg, employment testing)DETECTION CUT OFF: 500 ng/mLCut off Value: 1000 ng/mL SOURCE OF URINE: CLEAN CATCHURN [id number] 17:46:00* Test Item Value Reference Range Interpretation Comments URN AMPHETAMINE (test code = AMPHETURN) POSITIVE NEGATIVE A RESULTS CALLED TO ZACKERY ChamberlainREAD BACK & CONFIRMED? YESBY F.LAB.IR1 03/22/20 1746 RESULTS SENT FOR CONFIRMATION OF SCREEN RESULTSSEE OTHER SPECIMEN FOR CONFIRMATION RESULTS These results are to be used only for medical (ie,treatment) purposes. Unconfirmed screening results must notbe used for non-medical purposes (eg, employment testing)DETECTION CUT OFF: 500 ng/mL SOURCE OF URINE: CLEAN CATCHRETICULOCYTE [id number] 13:34:00* Test Item Value Reference Range Interpretation Comments RETICULOCYTE COUNT (test code = RETICT) 1.4 % 0.5-1.5 N COMPREHENSIVE METABOLIC [id number] 13:20:00* Test Item Value Reference Range Interpretation [...] code = CK) 76 UNITS/L 30-135 N [id number] 13:20:00* Test Item Value Reference Range Interpretation Comments LIPASE (test code = LIP) 76 UNITS/L 23-300 N COMPREHENSIVE METABOLIC [id number] 13:19:00* Test Item Value Reference Range Interpretation [...] (CK) (test code = CK) UNITS/L 30-135 [id number] 13:19:00* Test Item Value Reference Range Interpretation Comments LIPASE (test code = LIP) UNITS/L 23-300 COMPREHENSIVE METABOLIC [id number] 13:18:00* Test Item Value Reference Range Interpretation [...] (CK) (test code = CK) UNITS/L 30-135 [id number] 13:18:00* Test Item Value Reference Range Interpretation Comments LIPASE (test code = LIP) UNITS/L 23-300 COMPREHENSIVE METABOLIC [id number] 13:17:00* Test Item Value Reference Range Interpretation [...] (CK) (test code = CK) UNITS/L 30-135 [id number] 13:17:00* Test Item Value Reference Range Interpretation Comments LIPASE (test code = LIP) UNITS/L 23-300 CBC W/AUTO [id number] 13:14:00* Test Item Value Reference Range Interpretation [...] = NRBC#) 0.00 K/mm3 0.0-0.1 N URINALYSIS [id number] 12:52:00* Test Item Value Reference Range Interpretation [...] Chk SOURCE OF URINE: CLEAN CATCHUR HCG [id number] 12:52:00* Test Item Value Reference Range Interpretation Comments UR HCG QUAL (test code = HCGQLU) NEGATIVE NEGATIVE SOURCE OF URINE: CLEAN CATCHDRUGS OF ABUSE SCREEN [id number] 12:52:00* Test Item Value Reference Range Interpretation [...] 25 ng/mL SOURCE OF URINE: CLEAN CATCHURINALYSIS [id number] 12:37:00* Test Item Value Reference Range Interpretation [...] Chk SOURCE OF URINE: CLEAN CATCHUR HCG [id number] 12:37:00* Test Item Value Reference Range Interpretation Comments UR HCG QUAL (test code = HCGQLU) NEGATIVE NEGATIVE SOURCE OF URINE: CLEAN CATCHDRUGS OF ABUSE SCREEN [id number] 12:37:00* Test Item Value Reference Range Interpretation [...] PHENCU) NEGATIVE SOURCE OF URINE: CLEAN CATCHURINALYSIS [id number] 12:28:00* Test Item Value Reference Range Interpretation [...] Chk SOURCE OF URINE: CLEAN CATCHUR HCG [id number] 12:28:00* Test Item Value Reference Range Interpretation Comments UR HCG QUAL (test code = HCGQLU) NEGATIVE NEGATIVE SOURCE OF URINE: CLEAN CATCHDRUGS OF ABUSE SCREEN [id number] 12:28:00* Test Item Value Reference Range Interpretation [...] PHENCU) NEGATIVE SOURCE OF URINE: CLEAN CATCHURINALYSIS [id number] 12:25:00* Test Item Value Reference Range Interpretation [...] Chk SOURCE OF URINE: CLEAN CATCHUR HCG [id number] 12:25:00* Test Item Value Reference Range Interpretation Comments UR HCG QUAL (test code = HCGQLU) NEGATIVE SOURCE OF URINE: CLEAN CATCHDRUGS OF ABUSE SCREEN [id number] 12:25:00* Test Item Value Reference Range Interpretation [...] 0.26-1.60 RET_# (test code = RET#) 0.03 X10\S\6/uL 0.01-0.07 HCT (test code = HCT) 30.8 % 35.0-44.0 L RBC (test code = RBC) 3.25 10\S\6/uL 4.30-5.70 L RET_COR (test code = RETC) 0.70 % 0.26-1.60 CBC (INCLUDES AUTOMATED DIFFERENTIAL)*[id number] 22:24:00* Test Item Value Reference Range Interpretation Comments WBC (test code = WBC) 3.9 10\S\3/uL 4.5-11.0 L RBC (test code = RBC) 3.22 10\S\6/uL 4.30-5.70 L HGB (test code = HBG) 10.4 g/dL 12.0-15.5 L HCT (test code = HCT) 30.5 % 35.0-44.0 L MCV (test code = MCV) 94.7 fL 81.0-99.0 MCH (test code = MCH) 32.3 pg 27.0-31.0 H MCHC (test code = MCHC) 34.1 g/dL 32.0-36.0 RDW (test code = RDW) 12.1 % 11.5-14.5 PLT (test code = PLT) 194 10\S\3/uL 130-400 MPV (test code = MPV) 11.1 fL 9.4-12.4 NEUTROP # (test code = NE#) 1.4 10\S\3/uL 1.6-8.0 L LYMPH # (test code = LY#) 2.0 10\S\3/uL 1.1-3.5 MONOCYTE # (test code = MO#) 0.4 10\S\3/uL 0.0-1.1 EOSINOPH # (test code = EO#) 0.1 10\S\3/uL 0.0-0.7 BASOPHIL # (test code = BA#) 0.0 10\S\3/uL 0.0-0.3 IG # (test code = IG#) 0.01 10\S\3/uL 0.00-0.06 NRBC # (test code = NRBC#) 0.00 10\S\3/uL 0.00-0.01 NEUTROPH % (test code = NE%) [...] 60A) 85 IU/L 73-393 COMPREHENSIVE METABOLIC BEY 2020-03-17 22:20:00* Test Item Value Reference Range [...] 0.4-1.1 GFR (test code = GFR) 110 mL/min/1.73m\S\2 >=90 GFR (test code = GFRAA) 127 mL/min/1.73m\S\2 >=90 EGFR (test code = EGFR) eGFR [...] 31A) 16 IU/L <=78 DRUGS OF ABUSE *WW*2020-03-17 22:16:00* Test Item Value Reference Range Interpretation [...] code = WAUAM) NO NO hCG, serum, cjpheqqcxba1675-92-93 14:06:00* Test Item Value Reference Range Interpretation Comments Preg Test, Serum (test code = 2110-5) Negative [facility], [id number] 14:06:00* Test Item Value Reference Range Interpretation Comments TEST SERUM (BEAKER) (test code = 584) Negative Comprehensive metabolic [id number] 14:03:00* Test Item Value Reference Range Interpretation Comments Protein, Total (test code = 2885-2) 8.4 6.0- 8.5 gm/dL Specimen slightly hemolyzed Albumin (test code = 51215-7) 4.7 g/dL 3.5-5 Specimen slightly hemolyzed Alkaline [...] mg/dL 70-110 L Calcium (test code = 32392-8) 9.3 mg/dL 8.5-10.5 AST (test code = 1920-8) 20 U/L 5-40 Spe cimen slightly hemolyzed ALT (test code = 1742-6) 8 U/L 5-50 Spe cimen slightly hemolyzed EGFR (test code = 38451-0) 103 mL/min/1.73 sq m ESTIMATED GFR IS NOT ACCURATE CREATININE CLEARANCE IN PREDICTING GLOMERULAR FILTRATION RATE. ESTIMATED GFR IS NOT APPLICABLE FOR DIALYSIS PATIENTS. RADHA (test code = RADHA) Target Protection Specialist ID - [id number] Lab Interpretation (test code = 99410-2) Abnormal [facility] [id number] 14:03:00* Test Item Value Reference Range Interpretation [...] GFR IS NOT APPLICABLE FOR DIALYSIS PATIENTS. Target Protection Specialist ID - [id number] 14:02:00* Test Item Value Reference Range Interpretation Comments Lipase (test code = 3040-3) 18 U/L 6-51 RADHA (test code = RADHA) [employer] Protection Specialist ID - [id number] Lab Interpretation (test code = 39994-0) Normal [facility] 14:02:00* Test Item Value Reference Range Interpretation Comments LIPASE (BEAKER) (test code = 749) 18 U/L 6-51 [employer] Protection Specialist ID - [id number] with platelet count + automated nibp6358-04-72 13:45:00 * Test Item Value Reference Range [...] 430 K/CU MM MPV (test code = 62869-3) 10.5 fL 6-11.5 nRBC (test code = [...] % 0-0 Lab Interpretation (test code = 93478-2) Abnormal [facility]/PLT COUNT & AUTO [id number] 13:45:00* Test Item Value Reference Range Interpretation [...] code = 2801) 0 % 0-0 Urinalysis w/Krsjrfrdhtc2152-59-69 13:13:00* Test Item Value Reference Range Interpretation Comments Color, UA (test code = 5778-6) Yellow Clarity, UA (test code = 5767-9) Clear Specific [place], UA (test code = 5811-5) >=1.030 1.001-1.035 pH, UA (test code = 5803-2) 5.5 5.0-8.0 Protein, UA (test code = 66604-0) Negative Negative Glucose, UA (test code = 365) Negative Negative Ketones, UA (test code = 2514-8) Negative Negative Bilirubin, UA (test code = 79571-4) Negative Negative Blood, UA (test code = 76802-6) Negative Negative Nitrite, UA (test code = 5802-4) Negative Negative Leukocytes, UA (test code = 5799-2) Negative Negative Urobilinogen, UA (test code = 92033-7) 0.2 mg/dL 0.2-1 Bacteria, UA (test code = 18697-0) Few RBC, UA (test code = 799-7) None Seen /HPF WBC, UA (test code = 30698-1) <5 /HPF SQUAMOUS EPITHELIAL (test code = 00774-4) 10-20 /HPF Specimen Source (test code = 2795) [facility]/ [id number] 13:13:00* Test Item Value Reference Range Interpretation [...] SOURCE(BEAKER) (test code = 2795) CT ABDOMEN/PELVIS [id number] 17:53:00 [facility] [address] [place] [address] Patient Name: KENNETH PLATT MR #: [id number] : 1985 Age/Sex: 34/F Req #: [id number] Adm Physician: Ordered by: LOLY HILARIO MD Report #: [id number] Location: [facility] Room/Bed: Procedure: [id number] CT/CT ABDOMEN/ PELVIS WO Exam Date: 02/28/20 [...] 02/28/201802 COPY TO: LOLY HILARIO MD URINALYSIS [id number] 13:11:00* Test Item Value Reference Range Interpretation [...] Chk SOURCE OF URINE: CLEAN CATCHUR HCG [id number] 13:11:00* Test Item Value Reference Range Interpretation Comments UR HCG QUAL (test code = HCGQLU) NEGATIVE NEGATIVE SOURCE OF URINE: CLEAN CATCHURINALYSIS [id number] 13:07:00* Test Item Value Reference Range Interpretation [...] Chk SOURCE OF URINE: CLEAN CATCHUR HCG [id number] 13:07:00* Test Item Value Reference Range Interpretation Comments UR HCG QUAL (test code = HCGQLU) NEGATIVE SOURCE OF URINE: CLEAN CATCHURINE [id number] 10:03:00* Test Item Value Reference Range Interpretation Comments Isolate 1 (test code = ISO1) Gardnerella Vaginalis RETIC COUNT WW2020-01-31 23:10:00* Test Item Value Reference Range Interpretation Comments RET% (test code = RET) 1.00 % 0.26-1.60 RET_# (test code = RET#) 0.04 X10\S\6/uL 0.01-0.07 HCT (test code = HCT) 37.8 % 35.0-44.0 RBC (test code = RBC) 4.00 10\S\6/uL 4.30-5.70 L RET_COR (test code = RETC) [...] the FDA and the [employer] (CAP) are more stringent than those [...] 0.4-1.1 GFR (test code = GFR) 101 mL/min/1.73m\S\2 >=90 GFR (test code = GFRAA) 117 mL/min/1.73m\S\2 >=90 EGFR (test code = EGFR) eGFR [...] = PGU) NEGATIVE NEGATIVE CBC (INCLUDES AUTOMATED DIFFERENTIAL)*[id number] 22:16:00* Test Item Value Reference Range Interpretation Comments WBC (test code = WBC) 4.5 10\S\3/uL 4.5-11.0 RBC (test code = RBC) 4.01 10\S\6/uL 4.30-5.70 L HGB (test code = HBG) 13.0 g/dL 12.0-15.5 HCT (test code = HCT) 37.9 % 35.0-44.0 MCV (test code = MCV) 94.5 fL 81.0-99.0 MCH (test code = MCH) 32.4 pg 27.0-31.0 H MCHC (test code = MCHC) 34.3 g/dL 32.0-36.0 RDW (test code = RDW) 12.1 % 11.5-14.5 PLT (test code = PLT) 212 10\S\3/uL 130-400 MPV (test code = MPV) 11.3 fL 9.4-12.4 NEUTROP # (test code = NE#) 1.7 10\S\3/uL 1.6-8.0 LYMPH # (test code = LY#) 2.2 10\S\3/uL 1.1-3.5 MONOCYTE # (test code = MO#) 0.3 10\S\3/uL 0.0-1.1 EOSINOPH # (test code = EO#) 0.2 10\S\3/uL 0.0-0.7 BASOPHIL # (test code = BA#) 0.0 10\S\3/uL 0.0-0.3 IG # (test code = IG#) 0.00 10\S\3/uL 0.00-0.06 NRBC # (test code = NRBC#) 0.00 10\S\3/uL 0.00-0.01 NEUTROPH % (test code = NE%) [...] MORPH (test code = WRBCMOR) NORMAL URINALYSIS [id number] 11:29:00* Test Item Value Reference Range Interpretation [...] MUCU) 4+ /LPF NONE SEEN UR HCG [id number] 11:29:00* Test Item Value Reference Range Interpretation Comments UR HCG QUAL (test code = HCGQLU) NEGATIVE NEGATIVE BASIC METABOLIC [id number] 11:21:00* Test Item Value Reference Range Interpretation [...] CA) 9.4 mg/dL 8.5-10.5 N LIVER FUNCTION [id number] 11:21:00* Test Item Value Reference Range Interpretation [...] code = ALKP) 37 U/L 42-121 L [id number] 11:21:00* Test Item Value Reference Range Interpretation Comments LIPASE (test code = LIP) 24 IU/L 22-51 N BASIC METABOLIC [id number] 11:17:00* Test Item Value Reference Range Interpretation [...] CA) 9.4 mg/dL 8.5-10.5 N LIVER FUNCTION [id number] 11:17:00* Test Item Value Reference Range Interpretation [...] PHOSPHATASE (test code = ALKP) U/L 42-121 [id number] 11:17:00* Test Item Value Reference Range Interpretation Comments LIPASE (test code = LIP) 24 IU/L 22-51 N CBC W/AUTO [id number] 11:03:00* Test Item Value Reference Range Interpretation [...] BA#) 0.1 x10 3/uL 0.0-0.1 N Urine pubueyk8935-67-30 08:42:00* Test Item Value Reference Range Interpretation Comments Result (test code = 6463-4) >100,000 col/mL skin vane [facility] W/PLT COUNT & AUTO [id number] 19:49:00* Test Item Value Reference Range Interpretation [...] (test code = 2801) 0 % 0-0 [id number] 19:41:00* Test Item Value Reference Range Interpretation Comments LIPASE (BEAKER) (test code = 749) 24 U/L 6-51 [employer] Specialist ID - [id number] metabolic panel (Na, K+, Cl, CO2, Glu, Ca, BUN, Cr) 2020-01-14 19:40:00* Test Item Value Reference Range Interpretation Comments Sodium (test code = 2951-2) 136 meq/L 135-148 Potassium (test code = 2823-3) 4.9 meq/L 3.6-5.5 Specimen moderately hemolyzed Chloride (test code = 2075-0) 109 meq/L 98-106 H CO2 (test code = 8-9) 15 meq/L 20-29 L BUN (test code = 3094-0) 18 mg/dL 10-26 Creatinine (test code = 2160-0) 0.69 mg/dL 0.5-1.2 Specimen moderately hemolyzed Glucose (test code = 2345-7) 70 mg/dL 70-110 Calcium (test code = 41308-1) 9.4 mg/dL 8.5-10.5 EGFR (test code = 66086-1) 117 mL/min/1.73 sq m ESTIMATED GFR IS NOT ACCURATE CREATININE CLEARANCE IN PREDICTING GLOMERULAR FILTRATION RATE. ESTIMATED GFR IS NOT APPLICABLE FOR DIALYSIS PATIENTS. RADHA (test code = RADHA) [employer] Protection Specialist ID - [id number] Lab Interpretation (test code = 71749-2) Abnormal [facility] METABOLIC CLHRL2620-30-31 19:40:00* Test Item Value Reference Range Interpretation [...] GFR IS NOT APPLICABLE FOR DIALYSIS PATIENTS. Target Protection Specialist ID - [id number], ZPPSACS6268-24-98 19:36:00Reason for exam:-> DYSURIAReason for exam:->one month [...] ied Date/Time: 01/14/2020 19:36:56 abdomen pelvis without lhbhsywl0116-52-33 19:36:00Interface, External Ris In - 01/14/2020 7:39 [...] Leigh Pichardo MDReport Verified Date/Time: 01/14/2020 19:36:56 [facility] Ishqp9686-93-74 17:01:00* Test Item Value Reference Range Interpretation Comments Protein, Total (test code = 2885-2) 8.8 6.0- 8.5 gm/dL H Albumin (test code = 73259-1) 4.4 g/dL 3.5-5 Total Bilirubin (test code = 1975-2) 0.2 mg/dL 0.1-1.2 Bilirubin, Direct (test code = 1968-7) <0.1 0-0.4 Alkaline Phosphatase (test code = 6768-6) 36 U/L 30-115 AST (test code = 1920-8) 35 U/L 5-40 ALT (test code = 1742-6) 11 U/L 5-50 RADHA (test code = RADHA) [employer] Protection Specialist ID - [email or web address] Lab Interpretation (test code = 25456-3) Abnormal [facility]AT[facility] FUNCTION [id number] 17:01:00* Test Item Value Reference Range Interpretation [...] (test code = 347) 11 U/L 5-50 [employer] Protection Specialist ID - JUSTINRapid drug screen, rgavg9037-62-52 16:52:00* Test Item Value Reference Range Interpretation Comments Barbiturate Screen (test code = 55562-8) Negative Negative Benzodiazepine Screen (test code = 77760-2) Positive Negative A Cocaine (Metab.) Screen (test code = 3397-7) Positive Negative A Methadone Screen (test code = 20035-9) Negative Negative Opiate Screen (test code = 55991-6) Positive Negative A Cannabinoid Screen (test code = 68830-9) Negative Negative Amph/Methamph Screen (test code = 00058-8) Positive Negative A Phencyclidine Screen (test code = 13775-5) Negative Negative pH, UA (test code = 5803-2) 7.0 5.0-8.0 RADHA (test code = RADHA) DRUG CUTOFF C ONC.Cocaine 300 ng/mL Cannabinoid 50 ng/mLBenzodiazepine 200 ng/mLBarbiturate 200 ng/mLPhencyclidine 25 ng/mLOpiate 300 ng/mLMethadone 300 ng/mLAmphetamine/ 1000 ng/mL Methamphetamine This assay provides an unconfirmed qualitative test result for the clinical management of patients in emergency situations. Chain of custody not maintained. Some naik-efq-asubvtz medications, as well as adulterants, may cause inaccurate results. Clinical correlation should be applied. A more comprehensive drug screen or confirmation of a detected drug may be performed upon request.Target Protection Specialist ID - JUSTINOperator ID - JUSTINOperator ID - JUSTINOperator ID - JUSTINOperator ID - JUSTINOperator ID - JUSTINOperator ID - JUSTINOperator ID - MANUELITO Lab Interpretation (test code = 07621-0) [facility]normal [facility], [id number] 16:52:00* Test Item Value Reference Range Interpretation [...] situations. Chain of custody not maintained. Some gpgm-fed-azgwzci me dications, as well as adulterants, may cause inaccurate results. Clinical correl ation should be applied. A more comprehensive drug screen or confirmation of a d etected drug may be performed upon request.[employer] Protection Specialist ID - JUSTINOperator ID - JUS TINOperator ID - JUSTINOperator ID - JUSTINOperator ID - JUSTINOperator ID - JUS TINOperator ID - JUSTINOperator ID - JUSTINURINALYSIS W/ ULRBBFKTHPX9236-34-35 16:50:00* Test Item Value Reference Range Interpretation [...] /HPF SOURCE(BEAKER) (test code = 2795) screen, bezuv5168-55-86 16:38:00* Test Item Value Reference Range Interpretation Comments Preg Test, Ur (test code = 2112-1) Negative [facility] HospitalPREGNANCY SCREEN, [id number] 16:38:00* Test Item Value Reference Range Interpretation Comments TEST URINE (BEAKER) (test code = 583) Negative CT Abdomen Pelvis Wo Pnztnsnj5580-53-83 21:52:29Hm Interface, Radiology Results 01/12/2020 9:55 PM [...] er or outlet obstruction. No hydronephrosis or hydroureter.[facility]-[id number] MethodistOccult blood, ksnoh1174-86-06 21:23:11* Test Item Value Reference Range Interpretation Comments Occult blood, stool (test code = 2334-1) Negative for occult blood. Specimen InformationSpecimen Source: StoolSpecimen Site: [facility] MethodistUS Pelvic Yaeqrdfgxiuo0463-43-67 21:07:06 Interface, Radiology Results Incoming 01/12/2020 9:10 PM CDTEXAMINATION: US PELVIC TRANSABDOMINAL, [...] unremar kable transabdominal and endovaginal pelvic ultrasound examination.[facility]-[id number] [facility] MethodistUS Pelvic Ctmdkzqwmahypw6376-62-91 21:07:06 Interface, Radiology Results Incoming 01/12/2020 9:10 PM CDTEXAMINATION: US PELVIC TRANSABDOMINAL, [...] unremar kable transabdominal and endovaginal pelvic ultrasound examination.[facility]-[id number] [facility] MethodistRAPID DRUG SCREEN, [id number] 10:06:00* Test Item Value Reference Range Interpretation [...] situations. Chain of custody not maintained. Some jwgj-hmu-wrzoiao me dications, as well as adulterants, may cause inaccurate results. Clinical correl ation should be applied. A more comprehensive drug screen or confirmation of a d etected drug may be performed upon request.[employer] Protection Specialist ID - [id number] ID - zdx g56Woiympne ID - chwi21Adklytjf ID - [id number] ID - [id number] ID - zdx h12Hyojvmns ID - [id number] ID - [id number], [id number] 07:49:00* Test Item Value Reference Range Interpretation Comments Free T4 (test code = 3024-7) 0.79 ng/dL 0.9-1.8 L RADHA (test code = RADHA) [employer] ID - [id number] Lab Interpretation (test code = 54690-3) [id number] 07:49:00* Test Item Value Reference Range Interpretation Comments FREE T4 (BEAKER) (test code = 655) 0.79 ng/dL 0.90-1.80 L [employer] ID - [id number]/Free T4 If [id number] 07:18:00* Test Item Value Reference Range Interpretation Comments TSH (test code = 04404-7) 0.330 0.350- 5.500 uIU/mL L RADHA (test code = RADHA) [employer] ID - [id number] Lab Interpretation (test code = 06975-2) Abnormal [facility]TSH[facility] T4 IF [id number] 07:18:00* Test Item Value Reference Range Interpretation Comments THYROID STIMULATING HORMONE (BEAKER) (test code = 772) 0.330 uIU /mL 0.350-5.500 L [employer] Protection Specialist ID - [id number] METABOLIC [id number] 06:47:00* Test Item Value Reference Range Interpretation [...] GFR IS NOT APPLICABLE FOR DIALYSIS PATIENTS. [employer] Specialist ID - [id number] W/PLT COUNT & AUTO [id number] 06:36:00* Test Item Value Reference Range Interpretation [...] code = 2801) 0 % 0-0 CT, [id number] 05:16:00Reason for exam:->ABDOMINAL PAINSuprapubic pain that radiates to the right lower back. Pt. had finished her Rx ABX for UTI 2 days ago. Also c/o burning \T\ frequency of urination with N/V.Is the patient [...] M.D. on 12/03 05:16 AM BASIC METABOLIC [id number] 03:08:00* Test Item Value Reference Range Interpretation [...] GFR IS NOT APPLICABLE FOR DIALYSIS PATIENTS. [employer] Specialist ID - [id number] 03:05:00* Test Item Value Reference Range Interpretation Comments LIPASE (BEAKER) (test code = 749) 20 U/L 6-51 [employer] Specialist ID - RESORIANURINALYSIS W/ [id number] 03:05:00* Test Item Value Reference Range Interpretation [...] SOURCE(BEAKER) (test code = 2795) HEPATIC FUNCTION [id number] 03:04:00* Test Item Value Reference Range Interpretation [...] (test code = 347) 10 U/L 5-50 [employer] Specialist ID - RESORIANPREGNANCY SCREEN, [id number] 03:02:00* Test Item Value Reference Range Interpretation Comments TEST URINE (BEAKER) (test code = 583) Negative Lactic acid, [id number] 02:57:00* Test Item Value Reference Range Interpretation Comments Lactate, Venous (test code = 2872) 0.41 mmol/L 0.5-2 L RADHA (test code = RADHA) [employer] Specialist ID - RESORIAN Lab Interpretation (test code = 52376-6) Abnormal [facility] CenterLACT[facility] ACID, [id number] 02:57:00* Test Item Value Reference Range Interpretation Comments LACTATE BLOOD VENOUS (2) (BEAKER) (test code = 2872) 0.41 mmol/L 0 .50-2.00 L [employer] Specialist ID - RESORIANCBC W/PLT COUNT & AUTO [id number] 02:44:00* Test Item Value Reference Range Interpretation [...] 0 % 0-0 US PELVIS-NON OB - [id number] 12:54:00 [place] [address] Patient Name: KENNETH PLATT MR #: [id number] : 1985 Age/Sex: 33/F Req #: [id number] Adm Physician: Ordered by: ED WAGNER MD Report #: [id number] Location: [facility] Room/Bed: Procedure: [id number] HOPD/US PEL VIS-NON OB - HOPD Exam [...] PM Dictated By: JUAN DAVID SPENCE MD 1255 Transcribed By: MALLIKA on 12/01/19 1255 COPY TO: ED JOLLY MD CT ABD/PEL WO [id number] 12:47:00 [place] [address] Patient Name: KENNETH PLATT MR #: [id number] : 1985 Age/Sex: 33/F Req #: [id number] Adm Physician: Ordered by: ED WAGNER MD Report #: [id number] Location: [facility] Room/Bed: Procedure: [id number] HOPD/CT ABD /PEL WO CONTRAST-HOPD Exam Date: [...] ED WAGNER MD STD Panel - CT/GC [id number] 12:21:00* Test Item Value Reference Range Interpretation Comments C. trachomatis RNA, TMA (test code = 6900281) NOT DETECTED N. gonorrhoeae RNA, TMA (test code = 1460168) NOT DETECTED REFERENCE RANGE: NOT DETECTED Methodology: Disaster Or Damage Control Specialist Mediated Amplification (TMA)to detect RNA. The analytical performance characteristics of this assay,when used to test SurePath(TM) specimens have been determinedby [facility]. The modificationshave not been cleared or approved by the FDA. This assayhas been validated pursuant to the CLIA regulations andis used for clinical purposes. For additional information, please refer tohttps://education.Undertone/faq/FFG784(This link is being provided for informational/educational purposes only.) RADHA (test code = RADHA) Performing Lab *[facility] [address] [place] [id number] Ash Peres MD [facility] HospitalCT, [id number] 16:13:00Reason for exam:-> ABDOMINAL PAINReason for exam:->NAUSEAReason [...] Verified Date/Time: 11/06/2019 16:1 3:27 Reading Location: [facility] B1 C013Y [address] Body Reading Room Electronically sig justin by: TERESO ROSE MD on 11/06/2019 04:[address] abdomen pelvis with IV [id number] 16:13:00Interface, External Ris In - 11/06/2019 4:16 [...] MDReport Verified Date/Time: 11/06/2019 16:13:27 Reading Location: [address] Body Reading Room [facility] MICROSCOPIC 2019-11-06 15:23:00* Test [...] /HPF SOURCE(BEAKER) (test code = 2795) SCREEN, [id number] 15:22:00* Test Item Value Reference Range Interpretation Comments TEST URINE (BEAKER) (test code = 583) Negative HIV-1 Antigen with HIV-1/2 Lbcmcmtj0936-31-14 14:49:00* Test Item Value Reference Range Interpretation Comments HIV-1 Antigen with HIV 1&2 Antibody (test code = 05197-8) No nreactive Nonreactive RADHA (test code = RADHA) [employer] Protection Specialist ID - [id number] Lab Interpretation (test code = 54537-2) Normal [facility] CenterHIV-[facility] ANTIGEN WITH HIV-1/2 [id number] 14:49:00* Test Item Value Reference Range Interpretation Comments HIV-1 ANTIGEN WITH HIV 1\T\2 ANTIBODY (2) (BEAKER) (te st code = 2586) Nonreactive Nonreactive [employer] Specialist ID - [id number] 14:40:00* Test Item Value Reference Range Interpretation Comments LIPASE (BEAKER) (test code = 749) 27 U/L 6-51 [employer] Specialist ID - [id number] FUNCTION [id number] 14:39:00* Test Item Value Reference Range Interpretation [...] 347) 11 U/L 5-50 Specimen moderately hemolyzed [employer] Specialist ID - [id number] METABOLIC [id number] 14:38:00* Test Item Value Reference Range Interpretation [...] GFR IS NOT APPLICABLE FOR DIALYSIS PATIENTS. [employer] Protection Specialist ID - [id number] ACID, [id number] 14:36:00* Test Item Value Reference Range Interpretation Comments LACTATE BLOOD VENOUS (2) (BEAKER) (test code = 2872) 0.77 mmol/L 0 .50-2.00 Specimen markedly hemolyzed [employer] Specialist ID - [id number] prep, qcpwpcy8539-33-03 14:17:00* Test Item Value Reference Range Interpretation Comments WBC - wet prep (test code = 12455-8) Few white blood cells seen Clue cells - wet prep (test code = 72172-3) No clue cells seen Yeast - wet prep (test code = 77176-3) No budding yeast seen Trichomonas - wet prep (test code = 6565-6) No Trichomonas seen Bacteria - wet prep (test code = 31634-7) Moderate bacteria seen [facility] CenterWET [id number] 14:17:00* Test Item Value Reference Range Interpretation [...] bacteria seen CBC W/PLT COUNT & AUTO [id number] 13:33:00* Test Item Value Reference Range Interpretation [...] % 0-0 U/S, PELVIS, WITH ENDOVAG AND [id number] 12:25:00Reason for exam:-> ABDOMINAL PAINReason for exam:->VAGINAL [...] Yasmin ified Date/Time: 09/24/2019 12:25:17 Reading Location: [facility] Radiology Reading Room pelvis with endovag with qbpwmoo8469-92-24 12:25:00Interface, External Ris In - 09/24/2019 12:27 [...] Harrington Verified Date/Time: 09/24/2019 12:25:17 Reading Location: [facility] Radiology Reading Room [facility] HospitalUrinalysis w/Microscopic + Reflex to Xfztmko8015-04-22 10:11:00* Test Item Value Reference Range Interpretation Comments Color, UA (test code = 5778-6) Yellow Clarity, UA (test code = 5767-9) Clear Specific [place], UA (test code = 5811-5) 1.010 1.001-1.035 pH, UA (test code = 5803-2) 6.0 5.0-8.0 Protein, UA (test code = 04164-5) Negative Negative Glucose, UA (test code = 365) Negative Negative Ketones, UA (test code = 2514-8) Negative Negative Bilirubin, UA (test code = 80775-2) Negative Negative Blood, UA (test code = 07357-9) Moderate Negative A Nitrite, UA (test code = 5802-4) Negative Negative Leukocytes, UA (test code = 5799-2) Negative Negative Urobilinogen, UA (test code = 61009-5) 0.2 mg/dL 0.2-1 Bacteria, UA (test code = 53081-7) Few RBC, UA (test code = 799-7) <5 /HPF WBC, UA (test code = 30432-0) <5 /HPF SQUAMOUS EPITHELIAL (test code = 48448-3) <5 /HPF Specimen Source (test code = 2795) Lab Interpretation (test code = 20233-3) Abnormal [facility] W/ REFLEX URINE [id number] 10:11:00* Test Item Value Reference Range Interpretation [...] /HPF SOURCE(BEAKER) (test code = 2795) SCREEN, [id number] 10:05:00* Test Item Value Reference Range Interpretation Comments TEST URINE (BEAKER) (test code = 583) Negative CT, [id number] 13:29:00FINAL REPORT CT of the abdomen and [...] seen right adnexal cystic structure. Signed: Sven Longo MDReport Verified Date/Time: 08/17/2019 13 :29:23 Reading Location: [facility] C013X Ortho Consult Reading Room [facility] signed by: SVEN LONGO M.D. on 08/17/2019 01:29 PM SCREEN, URINE 2019-08-17 12:40:00* Test Item Value Reference Range Interpretation Comments TEST URINE (BEAKER) (test code = 583) Negative HEPATIC FUNCTION [id number] 12:19:00* Test Item Value Reference Range Interpretation [...] 347) 16 U/L 5-50 Specimen moderately hemolyzed [employer] Protection Specialist ID - [id number] 12:15:00* Test Item Value Reference Range Interpretation Comments LIPASE (BEAKER) (test code = 749) 29 U/L 6-51 [employer] Protection Specialist ID - [id number] METABOLIC [id number] 12:12:00* Test Item Value Reference Range Interpretation [...] GFR IS NOT APPLICABLE FOR DIALYSIS PATIENTS. [employer] Protection Specialist ID - [id number] ACID, [id number] 12:07:00* Test Item Value Reference Range Interpretation Comments LACTATE BLOOD VENOUS (2) (BEAKER) (test code = 2872) 0.9 mmol/L 0 .5-2.0 Specimen moderately hemolyzed [employer] Protection Specialist ID - [id number] W/PLT COUNT & AUTO [id number] 11:52:00* Test Item Value Reference Range Interpretation [...] 0 % 0-0 Blood culture, aerobic & cjxzeepky6421-09-81 03:03:06* Test Item Value Reference Range Interpretation Comments Blood culture isolate (test code = 600-7) No growth after 5 days of incubation. Specimen InformationSpecimen Source: BloodSpecimen Site: Antecubital, left [place] MethodistBasic metabolic [id number] 06:01:21* Test Item Value Reference Range Interpretation Comments Sodium (test code = 2951-2) 137 135- 148 mEq/L Potassium (test code = 2823-3) 4.1 3.5- 5.0 mEq/L Chloride (test code = 2075-0) 109 98- 112 mEq/L CO2 (test code = 2028-9) 20 24- 31 mEq/L L Anion gap (test code = 31358-3) 8@ANIO 7- 15 mEq/L BUN (test code = 3094-0) 10 mg/dL 6-20 Creatinine (test code = 2160-0) 0.67 mg/dL 0.5-0.9 Glucose (test code = 2345-7) 94 mg/dL 65-99 Calcium (test code = 35980-3) 8.3 mg/dL 8.3-10.2 Lab Interpretation (test code = 99199-6) Abnormal [place] MethodistLactic acid level, SEPSIS - Now and repeat 2x every 3 hours 2019-08-08 03:02:51* Test Item Value Reference Range Interpretation Comments Lactic acid (test code = 88364-1) 0.7 mmol/L 0.5-2.2 [place] MethodistU/S, PELVIS, WITH ENDOVAG AND [id number] 02:04:00Reason for exam:->abd pain; eval for torsionFINAL [...] Pichardo MDReport Verified Date/Time: 08/03/2019 02:04:08 , [id number] 23:51:00 Reason for exam:->lower abd pain, vomitingFINAL REPORT CT, ABDOMEN \T\ PELVIS, WITH IV CONTRAST INDICATION: lower abd [...] GFR IS NOT APPLICABLE FOR DIALYSIS PATIENTS. [id number] 22:46:00* Test Item Value Reference Range Interpretation Comments LIPASE (BEAKER) (test code = 749) 31 U/L 6-51 URINALYSIS W/ [id number] 22:05:00* Test Item Value Reference Range Interpretation [...] 1661) <5 /HPF SOURCE(BEAKER) (test code = 1683) SQUAMOUS EPITHELIAL MANUAL (BEAKER) (test code = 1663) 50-100 /HPF This is an appended report. These results have been appended to a previously final verified report. SCREEN, [id number] 21:18:00* Test Item Value Reference Range Interpretation Comments TEST URINE (BEAKER) (test code = 583) Negative CBC W/PLT COUNT & AUTO [id number] 21:13:00* Test Item Value Reference Range Interpretation [...] code = 2801) 0 % 0-0 Manual Etyoqnkkkgsu3639-67-02 20:16:00* Test Item Value Reference Range Interpretation Comments Total Counted (test code = 1351) WBC Morphology (test code = 487) Normal RBC Morphology (test code = 762) Normal Hypogranular Platelet (test code = 2157) Present [facility] W/PLT COUNT & AUTO [id number] 20:16:00* Test Item Value Reference Range Interpretation [...] (test code = 2157) Present COMPREHENSIVE METABOLIC [id number] 19:38:00* Test Item Value Reference Range Interpretation [...] GFR IS NOT APPLICABLE FOR DIALYSIS PATIENTS. [id number] 19:38:00* Test Item Value Reference Range Interpretation Comments LIPASE (BEAKER) (test code = 749) 22 U/L 6-51 URINALYSIS W/ [id number] 19:30:00* Test Item Value Reference Range Interpretation [...] /HPF SOURCE(BEAKER) (test code = 2795) SCREEN, [id number] 19:22:00* Test Item Value Reference Range Interpretation Comments TEST URINE (BEAKER) (test code = 583) Negative - US PELVIC [id number] 15:20:00 Name: KENNETH PLATT : 1985 Age/S: 33 / F [id number] [address] Unit #: [id number] Loc: [place] [address] Phys: Mk Santos MD Acct: [id number] Dis Date: Status: REG ER PHONE #: [phone] Exam Date: 06/22/2019 1451 FAX #: Reason: pelvic pain EXAMS: CPT: [id number] US PELVIC COMPLETE 84865 Site ID: [id number] EXAMINATION: - US TRANSVAGINAL [...] Technologist: Filomena Bautista Trnscb Date/Time: 06/22/2019 (1520) CherTZS PAGE 1 Signed Report Name: KENNETH PLATT : 1985 Age/S: 33 / F [id number] [address] Unit #: [id number] Loc: [place] [address] Phys: Mk Santos MD Acct: [id number] Dis Date: Status: REG ER PHONE #: [phone] Exam Date: 06/22/2019 1455 FAX #: Reason: pelvic pain EXAMS: CPT: 04 [id number] US PELVIC COMPLETE 38727 < Continued> Orig Print D/T: S: 06/22/2019 (1523) Probe: PAGE 2 Signed Report - US TRANSVAGINAL NON [id number] 15:20:00 Name: KENNETH PLATT : 1985 Age/S: 33 / F [address] [address] Unit #: [id number] Loc: [place] [address] Phys: Mk Santos MD Acct: [id number] Di s Date: Status: REG ER PHONE #: Exam Date: 06/22/2019 1455 FAX #: Reason: pelvic pain EXAMS: CPT: [id number] [place] [address] Site ID: [id number] EXAMINATION: - US TRANSVAGINAL [...] PLATT : 1985 Age/S: 33 / F [address] [facility] [address] Unit #: [id number] Loc: [place] [address] Phys: Mk Santos MD Acct: [id number] Dis Date: Status: REG ER PHONE #: [phone] Exam Date: 06/22/2019 0702 FAX #: Reason: pelvic pain EXAMS: CPT: 04 [id number] [place] [address] < Continued> Orig Print D/T: S: 06/22/2019 (1523) Probe: [id number] PAGE 2 Signed Report UA RFLX MICR CULT IF [id number] 14:19:00* Test Item Value Reference Range Interpretation [...] CATCHIndication for culture: Dysuria/FrequencyDRUGS OF ABUSE SCREEN [id number] 14:19:00* Test Item Value Reference Range Interpretation [...] URINE: CLEAN CATCHIndication for culture: Dysuria/FrequencyBASIC METABOLIC [id number] 14:14:00* Test Item Value Reference Range Interpretation [...] CA) 8.4 MG/DL 8.5-10.1 L HEPATIC FUNCTION [id number] 14:14:00* Test Item Value Reference Range Interpretation [...] code = ALKP) 54 Unit/L 45-117 N [id number] 14:14:00* Test Item Value Reference Range Interpretation Comments LIPASE (test code = LIP) 83 Unit/L 114-286 L CBC W/AUTO [id number] 14:08:00* Test Item Value Reference Range Interpretation [...] = MDIFF) NO DIFF/SCN CRITERIA BASIC METABOLIC [id number] 14:08:00* Test Item Value Reference Range Interpretation [...] CA) 8.4 MG/DL 8.5-10.1 L HEPATIC FUNCTION [id number] 14:08:00* Test Item Value Reference Range Interpretation [...] TOTAL (test code = ALKP) Unit/L 45-117 [id number] 14:08:00* Test Item Value Reference Range Interpretation Comments LIPASE (test code = LIP) 83 Unit/L 114-286 L UA RFLX MICR CULT IF [id number] 14:02:00* Test Item Value Reference Range Interpretation [...] CATCHIndication for culture: Dysuria/FrequencyDRUGS OF ABUSE SCREEN [id number] 14:02:00* Test Item Value Reference Range Interpretation [...] for culture: Dysuria/FrequencyUA RFLX MICR CULT IF [id number] 14:02:00* Test Item Value Reference Range Interpretation [...] CATCHIndication for culture: Dysuria/FrequencyDRUGS OF ABUSE SCREEN [id number] 14:02:00* Test Item Value Reference Range Interpretation [...] beresampled and retested after 48 hours Gram [id number] 05:46:53Gram stain resultNo WBC'sMany Gram variable rods Comment: Specimen InformationSpecimen Source: UrineSpecimen Site: Clean [facility] MethodistU/S, PELVIS, WITH ENDOVAG AND DOPPLER 2019-04-17 02:58:00Reason for exam:->PELVIC PAINFINAL REPORT U/S, PELVIS, [...] sonographic examination of the pelvis. Signed: [facility] Verified Date/Time: 04/17/2019 02:58:04 EN, [id number] 02:11:00* Test Item Value Reference Range Interpretation Comments TEST URINE (BEAKER) (test code = 583) Negative URINALYSIS W/ [id number] 02:03:00* Test Item Value Reference Range Interpretation [...] /HPF SOURCE(BEAKER) (test code = 2795) WET [id number] 01:07:00* Test Item Value Reference Range Interpretation [...] = 532) Few bacteria seen COMPREHENSIVE METABOLIC [id number] 23:43:00* Test Item Value Reference Range Interpretation [...] GFR IS NOT APPLICABLE FOR DIALYSIS PATIENTS. [id number] 23:43:00* Test Item Value Reference Range Interpretation Comments LIPASE (BEAKER) (test code = 749) 14 U/L 6-51 CBC W/PLT COUNT & AUTO [id number] 23:28:00* Test Item Value Reference Range Interpretation [...] (test code = 2801) 0 % 0-0 [id number] 16:59:00* Test Item Value Reference Range Interpretation Comments LIPASE (BEAKER) (test code = 749) 71 U/L 40-240 BASIC METABOLIC [id number] 16:59:00* Test Item Value Reference Range Interpretation [...] NOT APPLICABLE FOR DIALYSIS PATIENTS. HEPATIC FUNCTION [id number] 16:59:00* Test Item Value Reference Range Interpretation [...] = 347) 24 U/L 5-50 BLOOD GAS, [id number] 16:53:00* Test Item Value Reference Range Interpretation [...] (test code = 1819) 21 LACTIC ACID, [id number] 16:53:00* Test Item Value Reference Range Interpretation Comments LACTATE BLOOD VENOUS (2) (BEAKER) (test code = 2872) 0.7 mmol/L 0 .5-2.2 CBC W/PLT COUNT & AUTO [id number] 16:45:00* Test Item Value Reference Range Interpretation [...] 0.04 K/ L 0. 00-0.20 URINALYSIS W/ [id number] 16:19:00* Test Item Value Reference Range Interpretation [...] code = 2795) CLUE CELLS SEEN. SCREEN, [id number] 16:12:00* Test Item Value Reference Range Interpretation Comments TEST URINE (BEAKER) (test code = 583) Negative GLUCOSE BEDSIDE [id number] 08:34:00* Test Item Value Reference Range Interpretation Comments GLUCOSE BEDSIDE TESTING (test code = GLUBED) 68 mg/dL 70-110 L BASIC METABOLIC [id number] 06:45:00* Test Item Value Reference Range Interpretation [...] CA) 7.9 MG/DL 8.5-10.1 L CBC W/AUTO [id number] 06:33:00* Test Item Value Reference Range Interpretation [...] = MDIFF) NO DIFF/SCN CRITERIA GLUCOSE BEDSIDE [id number] 17:47:00* Test Item Value Reference Range Interpretation Comments GLUCOSE BEDSIDE TESTING (test code = GLUBED) 93 mg/dL 70-110 N GLUCOSE BEDSIDE [id number] 16:55:00* Test Item Value Reference Range Interpretation Comments GLUCOSE BEDSIDE TESTING (test code = GLUBED) 60 mg/dL 70-110 L GLUCOSE BEDSIDE [id number] 12:21:00* Test Item Value Reference Range Interpretation Comments GLUCOSE BEDSIDE TESTING (test code = GLUBED) 71 mg/dL 70-110 N GLUCOSE BEDSIDE [id number] 08:42:00* Test Item Value Reference Range Interpretation Comments GLUCOSE BEDSIDE TESTING (test code = GLUBED) 72 mg/dL 70-110 N BASIC METABOLIC [id number] 07:31:00* Test Item Value Reference Range Interpretation [...] CA) 8.1 MG/DL 8.5-10.1 L CBC W/AUTO [id number] 07:19:00* Test Item Value Reference Range Interpretation [...] = MDIFF) NO DIFF/SCN CRITERIA GLUCOSE BEDSIDE [id number] 20:50:00* Test Item Value Reference Range Interpretation Comments GLUCOSE BEDSIDE TESTING (test code = GLUBED) 109 mg/dL 70-110 N GLUCOSE BEDSIDE [id number] 16:51:00* Test Item Value Reference Range Interpretation Comments GLUCOSE BEDSIDE TESTING (test code = GLUBED) 83 mg/dL 70-110 N GLUCOSE BEDSIDE [id number] 12:21:00* Test Item Value Reference Range Interpretation Comments GLUCOSE BEDSIDE TESTING (test code = GLUBED) 85 mg/dL 70-110 N BASIC METABOLIC [id number] 11:44:00* Test Item Value Reference Range Interpretation [...] CA) 8.2 MG/DL 8.5-10.1 L GLUCOSE BEDSIDE [id number] 08:26:00* Test Item Value Reference Range Interpretation Comments GLUCOSE BEDSIDE TESTING (test code = GLUBED) 90 mg/dL 70-110 N COMPREHENSIVE METABOLIC [id number] 07:31:00* Test Item Value Reference Range Interpretation [...] ALKP) 50 Unit/L 45-117 N GLUCOSE BEDSIDE [id number] 20:15:00* Test Item Value Reference Range Interpretation Comments GLUCOSE BEDSIDE TESTING (test code = GLUBED) 89 mg/dL 70-110 N GLUCOSE BEDSIDE [id number] 16:44:00* Test Item Value Reference Range Interpretation Comments GLUCOSE BEDSIDE TESTING (test code = GLUBED) 76 mg/dL 70-110 N GLUCOSE BEDSIDE [id number] 11:53:00* Test Item Value Reference Range Interpretation Comments GLUCOSE BEDSIDE TESTING (test code = GLUBED) 90 mg/dL 70-110 N GLUCOSE BEDSIDE [id number] 07:50:00* Test Item Value Reference Range Interpretation Comments GLUCOSE BEDSIDE TESTING (test code = GLUBED) 99 mg/dL 70-110 N GLUCOSE BEDSIDE [id number] 20:46:00* Test Item Value Reference Range Interpretation Comments GLUCOSE BEDSIDE TESTING (test code = GLUBED) 124 mg/dL 70-110 H GLUCOSE BEDSIDE [id number] 17:04:00* Test Item Value Reference Range Interpretation Comments GLUCOSE BEDSIDE TESTING (test code = GLUBED) 98 mg/dL 70-110 N GLUCOSE BEDSIDE [id number] 11:44:00* Test Item Value Reference Range Interpretation Comments GLUCOSE BEDSIDE TESTING (test code = GLUBED) 70 mg/dL 70-110 N GLUCOSE BEDSIDE [id number] 08:07:00* Test Item Value Reference Range Interpretation Comments GLUCOSE BEDSIDE TESTING (test code = GLUBED) 108 mg/dL 70-110 N BASIC METABOLIC [id number] 05:21:00* Test Item Value Reference Range Interpretation [...] CA) 8.0 MG/DL 8.5-10.1 L CBC W/AUTO [id number] 05:09:00* Test Item Value Reference Range Interpretation [...] = MDIFF) NO DIFF/SCN CRITERIA GLUCOSE BEDSIDE [id number] 20:47:00* Test Item Value Reference Range Interpretation Comments GLUCOSE BEDSIDE TESTING (test code = GLUBED) 88 mg/dL 70-110 N GLUCOSE BEDSIDE [id number] 16:59:00* Test Item Value Reference Range Interpretation Comments GLUCOSE BEDSIDE TESTING (test code = GLUBED) 72 mg/dL 70-110 N TRICYCLICS BY HPLC, ID [id number] 15:31:00* Test Item Value Reference Range Interpretation [...] None Detected ng/mL Not Estab. GLUCOSE BEDSIDE [id number] 08:44:00* Test Item Value Reference Range Interpretation Comments GLUCOSE BEDSIDE TESTING (test code = GLUBED) 88 mg/dL 70-110 N TRICYCLICS BY HPLC, ID [id number] 06:09:00* Test Item Value Reference Range Interpretation [...] None Detected ng/mL Not Estab. GLUCOSE BEDSIDE [id number] 20:56:00* Test Item Value Reference Range Interpretation Comments GLUCOSE BEDSIDE TESTING (test code = GLUBED) 70 mg/dL 70-110 N GLUCOSE BEDSIDE [id number] 18:11:00* Test Item Value Reference Range Interpretation Comments GLUCOSE BEDSIDE TESTING (test code = GLUBED) 90 mg/dL 70-110 N GLUCOSE BEDSIDE [id number] 12:41:00* Test Item Value Reference Range Interpretation Comments GLUCOSE BEDSIDE TESTING (test code = GLUBED) 90 mg/dL 70-110 N GLUCOSE BEDSIDE [id number] 08:10:00* Test Item Value Reference Range Interpretation Comments GLUCOSE BEDSIDE TESTING (test code = GLUBED) 102 mg/dL 70-110 N GLUCOSE BEDSIDE [id number] 00:58:00* Test Item Value Reference Range Interpretation Comments GLUCOSE BEDSIDE TESTING (test code = GLUBED) 105 mg/dL 70-110 N GLUCOSE BEDSIDE [id number] 20:36:00* Test Item Value Reference Range Interpretation Comments GLUCOSE BEDSIDE TESTING (test code = GLUBED) 128 mg/dL 70-110 H GLUCOSE BEDSIDE [id number] 17:10:00* Test Item Value Reference Range Interpretation Comments GLUCOSE BEDSIDE TESTING (test code = GLUBED) 111 mg/dL 70-110 H GLUCOSE BEDSIDE [id number] 09:10:00* Test Item Value Reference Range Interpretation Comments GLUCOSE BEDSIDE TESTING (test code = GLUBED) 104 mg/dL 70-110 N COMPREHENSIVE METABOLIC [id number] 07:10:00* Test Item Value Reference Range Interpretation [...] ALKP) 53 Unit/L 45-117 N CBC W/AUTO [id number] 07:02:00* Test Item Value Reference Range Interpretation [...] = MDIFF) NO DIFF/SCN CRITERIA GLUCOSE BEDSIDE [id number] 04:54:00* Test Item Value Reference Range Interpretation Comments GLUCOSE BEDSIDE TESTING (test code = GLUBED) 100 mg/dL 70-110 N GLUCOSE BEDSIDE [id number] 00:52:00* Test Item Value Reference Range Interpretation Comments GLUCOSE BEDSIDE TESTING (test code = GLUBED) 98 mg/dL 70-110 N GLUCOSE BEDSIDE [id number] 20:16:00* Test Item Value Reference Range Interpretation Comments GLUCOSE BEDSIDE TESTING (test code = GLUBED) 107 mg/dL 70-110 N GLUCOSE BEDSIDE [id number] 16:56:00* Test Item Value Reference Range Interpretation Comments GLUCOSE BEDSIDE TESTING (test code = GLUBED) 101 mg/dL 70-110 N COMPREHENSIVE METABOLIC [id number] 15:40:00* Test Item Value Reference Range Interpretation [...] ALKP) 58 Unit/L 45-117 N CBC W/AUTO [id number] 13:23:00* Test Item Value Reference Range Interpretation [...] code = MDIFF) DIFF/SCN CRITERIA CBC W/AUTO [id number] 13:23:00* Test Item Value Reference Range Interpretation [...] = MDIFF) NO DIFF/SCN CRITERIA GLUCOSE BEDSIDE [id number] 12:21:00* Test Item Value Reference Range Interpretation Comments GLUCOSE BEDSIDE TESTING (test code = GLUBED) 105 mg/dL 70-110 N - CT HEAD/BRAIN W/O [id number] 11:03:00 Name: KENNETH PLATT [place] : 1985 Age/S: 33 / F [address] Unit #: [id number] Loc: [place] [address] Phys: Supa Stroud MD Acct: [id number] Dis Date: Status: ADM IN PHONE #: [phone] Exam Date: 03/06/2019 1047 FAX #: Reason: AMS EXAMS: CPT: [id number] CT HEAD/BRAIN W/O CONT 04108 EXAM: - CT HEAD/BRAIN W/O CONT Location [...] Signed Report (C ONTINUED) Name: KENNETH PLATT [facility] : 1985 Age/S: 33 / F [address] Un it #: [id number] Loc: [place] [address] Phys: Supa Stroud MD Acct: [id number] Dis Date: Status: ADM IN PHONE #: [phone] Exam Date: 03/06/2019 1047 FAX #: Reason: AMS E XAMS: CPT: [id number] CT HEAD/BRAIN W/O CONT 85990 <Continued> CC: Ramone Bang MD; Supa Stroud MD Technologist:BEATRIZ SCHULTZ RT(R)(CT)(MR) CTDI: DLP: Trnscb Date/Time: 03/06/2019 (1103) [email or web address] Orig Print D/T: S: 03/06/2019 (8836) PAGE 2 Signed Report GLUCOSE BEDSIDE [id number] 07:53:00* Test Item Value Reference Range Interpretation Comments GLUCOSE BEDSIDE TESTING (test code = GLUBED) 93 mg/dL 70-110 N GLUCOSE BEDSIDE [id number] 04:49:00* Test Item Value Reference Range Interpretation Comments GLUCOSE BEDSIDE TESTING (test code = GLUBED) 87 mg/dL 70-110 N GLUCOSE BEDSIDE [id number] 00:27:00* Test Item Value Reference Range Interpretation Comments GLUCOSE BEDSIDE TESTING (test code = GLUBED) 132 mg/dL 70-110 H BASIC METABOLIC [id number] 22:35:00* Test Item Value Reference Range Interpretation [...] CA) 8.3 MG/DL 8.5-10.1 L GLUCOSE BEDSIDE [id number] 21:02:00* Test Item Value Reference Range Interpretation Comments GLUCOSE BEDSIDE TESTING (test code = GLUBED) 99 mg/dL 70-110 N GLUCOSE BEDSIDE [id number] 16:46:00* Test Item Value Reference Range Interpretation Comments GLUCOSE BEDSIDE TESTING (test code = GLUBED) 127 mg/dL 70-110 H GLUCOSE BEDSIDE [id number] 15:33:00* Test Item Value Reference Range Interpretation Comments GLUCOSE BEDSIDE TESTING (test code = GLUBED) 55 mg/dL 70-110 L COMPREHENSIVE METABOLIC [id number] 13:49:00* Test Item Value Reference Range Interpretation [...] L Last Dose Date: 03/05/19 Dose Time: [id number] 13:49:00* Test Item Value Reference Range Interpretation Comments ACETAMINOPHEN (test code = ACET) 7.5 mcG/ML 10.0-30.0 L Last Dose Date: 03/05/19 Dose Time: 1146TRICYCLICS [id number] 13:49:00* Test Item Value Reference Range Interpretation Comments TRICYCLICS UR (test code = TRIUR) SCREEN NONE DET Last Dose Date: 03/05/19 Dose Time: [id number] 13:45:00* Test Item Value Reference Range Interpretation Comments SALICYLATE (test code = NATALI) 1.9 MG/DL 2.8-20.0 THER L UA RFLX MICR CULT IF [id number] 13:36:00* Test Item Value Reference Range Interpretation [...] CATCHIndication for culture: Dysuria/FrequencyDRUGS OF ABUSE SCREEN [id number] 13:36:00* Test Item Value Reference Range Interpretation [...] URINE: CLEAN CATCHIndication for culture: Dysuria/FrequencyCBC W/AUTO [id number] 13:16:00* Test Item Value Reference Range Interpretation [...] DIFF/SCN CRITERIA UA RFLX MICR CULT IF [id number] 13:15:00* Test Item Value Reference Range Interpretation [...] CATCHIndication for culture: Dysuria/FrequencyDRUGS OF ABUSE SCREEN [id number] 13:15:00* Test Item Value Reference Range Interpretation [...] for culture: Dysuria/FrequencyUA RFLX MICR CULT IF [id number] 13:14:00* Test Item Value Reference Range Interpretation [...] CATCHIndication for culture: Dysuria/FrequencyDRUGS OF ABUSE SCREEN [id number] 13:14:00* Test Item Value Reference Range Interpretation [...] after 48 hours URINALYSIS W/ REFLEX URINE [id number] 00:04:00* Test Item Value Reference Range Interpretation [...] (test code = 2795) RAPID DRUG SCREEN, [id number] 13:55:00* Test Item Value Reference Range Interpretation [...] situations. Chain of custody not maintained. Some ldlc-fbs-apfmqae me dications, as well as adulterants, may cause inaccurate results. Clinical correl ation should be applied. A more comprehensive drug screen or confirmation of a d etected drug may be performed upon request.BASIC METABOLIC [id number] 13:38:00* Test Item Value Reference Range Interpretation [...] = 380) 98 U/L 29-20 0 SALICYLATE [id number] 13:37:00* Test Item Value Reference Range Interpretation Comments SALICYLATE LEVEL (BEAKER) (test code = 764) < mg/dL 15.0-30.0 L Therapeutic Range: 15.0-30.0 mg/dLToxic: >30.0 mg/dL Lethal: >70.0 mg/dLACETAMINOPHEN [id number] 13:35:00* Test Item Value Reference Range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 [facility]2016-[facility]-13 12:37:00* Test Item Value Reference Range Interpretation Comments ESR (test code = HESR) 52 mm/Hr 0-20 H Comprehensive Metabolic [id number] 09:23:00* Test Item Value Reference Range Interpretation [...] race is not provided, and the patient isAfrican-Swiss, multiply by 1.212. If sex is not [...] by the National Kidney Found ation,http://nkdep.nih.gov Vancomycin, [id number] 09:21:00* Test Item Value Reference Range Interpretation Comments Orlando Jones (test code = VANTR) <1.7 ug/mL 10.0-20.0 L Culture, [id number] 09:03:00Specimen: UrineCollected: 10/11/2016 10:55 Status: Final Last Updated: 10/13/2016 09:03 Culture Result (Final) (Final) 10/12/16 No growth 24 hours 10/13/2016 No growth 48 hours CBC with [id number] 08:34:00* Test Item Value Reference Range Interpretation [...] code = ALYMPH) 1.2 K/cumm 0.5-4.[address] [place] Abs (test code = AMONO) 0.5 K/cumm 0.0-1.2 N Eos Abs (test code = AEOS) 0.14 K/cumm 0.00-0.74 N Baso Abs (test code = ABASO) 0.0 K/cumm 0.00-0.21 N RPR, [id number] 19:58:00* Test Item Value Reference Range Interpretation Comments RPR (test code = RPR) Non-Reactive Non-Reactive N Rubella [id number] 05:46:00* Test Item Value Reference Range Interpretation Comments Rubella IgG (test code = RUBELIGG) Immune Immune N RPR, [id number] 05:46:00* Test Item Value Reference Range Interpretation Comments RPR (test code = RPR) Non-Reactive Non-Reactive N HIV [id number] 15:43:00* Test Item Value Reference Range Interpretation Comments HIV 1/2 Antibody (test code = HIV1/2AB) Non-Reactive Non-Reactive N HIV1/2 Antibody screen result indicates the absence of HIV1 and BKY2pcascqvvy.However, A Non-Reactive screen result does not rule [...] RNA Quantitative is recommended. Antibody Screen - [id number] 13:41:00* Test Item Value Reference Range Interpretation Comments Antibody Screen (test code = ABSCR) Negative Hep B Surface [id number] 12:19:00* Test Item Value Reference Range Interpretation Comments Hep Bs Ag (test code = HBSAG) Nonreactive Non-Reactive A [id number] 12:04:00* Test Item Value Reference Range Interpretation [...] = THC) Negative Negative N Comprehensive Metabolic [id number] 12:04:00* Test Item Value Reference Range Interpretation [...] race is not provided, and the patient isAfrican-Swiss, multiply by 1.212. If sex is not [...] National Kidney Found ation,http://nkdep.nih.gov Blood Type and [id number] 11:51:00* Test Item Value Reference Range Interpretation Comments ABO type (test code = ABO) O Rh Type (test code = RH) Negative Urinalysis [id number] 11:41:00* Test Item Value Reference Range Interpretation Comments Color (test code = COLOR) Yellow Yellow,Straw,Pl yellow N Clarity (test code = CLAR) Sl Cloudy Clear A Specific [place] (test code = SPGR) 1.016 1.001-1.035 N [...] code = MEXAM) Not indicated CBC with [id number] 11:37:00* Test Item Value Reference Range Interpretation [...] code = ALYMPH) 1.3 K/cumm 0.5-4.[address] [place] Abs (test code = AMONO) 0.5 K/cumm 0.0-1.2 N Eos Abs (test code = AEOS) 0.13 K/cumm 0.00-0.74 N Baso Abs (test code = ABASO) 0.0 K/cumm 0.00-0.21 N
== END 2020-05-01 23:56 | disposition home or self-care (01) ==
LOC: FSED 23:15
DX: R10.84 Generalized abdominal pain (principal); R11.2 Nausea with vomiting, unspecified
CPT/HCPCS: 96372; 99282; J2270; J2550

== ENCOUNTER 2020-05-12 14:17 | Emergency (ER) | payer SELFPAY ==
[~2020-05-12] VITALS: Ht 165.1 cm; Wt 68.0 kg
--- NOTE | 2020-05-12 14:45 | Emergency Department Note ---
History of Present Illnes History of Present Illness Chief Complaint: Skin Rash or Abscess History of Present Illness This is a 34 year old female, with a history of sickle cell disease, MRSA skin infection, and osteomyelitis of the finger back in 2017, who presents for evaluation of skin lesions, that she states her nonhealing, despite taking antibiotics. Patient states that one month ago she was treated for UTI with Bactrim, which she completed. She then developed some sores on her right arm and was placed on cephalexin and doxycycline, which she states she took for 2 weeks and completed. She then took a course of clindamycin for 2 weeks, and also used mupirocin ointment on the skin lesions. Patient states that despite taking the antibiotics, she still has skin lesions. The lesions appear to be loc alized primarily to the right upper extremity, with one open, ulcerated lesion on the posterior of the right upper arm, that appears to have scabbed either scratched or picked off. She also points to a lesion in her right suprapubic area, but is slightly swollen and tender to touch, this appears to be folliculitis, as she shaves her pubic hairs, and there is a raised tender nodule in that area, without fluctuance or drainage. Patient denies any fever or chills. She states she's had nausea and vomiting 2 today. She denies any joint pain or swelling. 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 Plasma Required: No Onset (how long ago): month(s) (1) Location: right upper extremity Quality: skin sores Radiation: Reports non-radiation Severity: mild Onset quality: gradual Duration (how long): month(s) (1) Progression: worsening Chronicity: recurrent Context: Reports recent illness (treated for a UTI 1 month ago;); Denies trauma/injury Relieving factors: none Exacerbating factors: none Associated symptoms: Reports nausea/vomiting (x 2 today;), Reports rash; Denies cough, Denies fever/chills, Denies malaise Treatments prior to arrival: other (antibiotics) Risk factors: Sickle Cell Anemia, previous MRSA infection, appears to pick skin; Past Medical/Family History Physician Review I have reviewed the patient's past medical and family history. Any updates have been documented here. Past Medical History Recent Fever: No Clinical Suspicion of Infectio: No New/Unexplained Change in Ment: No Past Medical History: UTI's Other Medical History: "colitis" sickle cell anemia osteomyelitis - 2017, of fingers MRSA infection Past Surgical History: Other Surgery: Osteomyelitis Social History Smoking Cessation: Never Smoker Counseling Performed: No Alcohol Use: None Any Illegal Drug Use: Yes (Methamphetamine) TB Exposure/Symptoms: No Physically hurt or threatened: No Family History Family history of heart diseas: No Other Last Tetanus: UTD Any Pre-Existing Lines (PICC,: No Is patient up to date on immun: No Review of Systems Review of Systems Constitutional: Denies chills, Denies fever EENTM: Reports no symptoms Cardiovascular: Denies chest pain, Denies palpitations Respiratory: Reports dyspnea; Denies cough Gastrointestinal: Reports nausea, Reports vomiting (x2); Denies abdominal pain Genitourinary: Reports no symptoms Musculoskeletal: Denies back pain, Denies neck pain Integumentary: Reports lesions (skin ulceration on back of RUE. ) Neurological: Denies headache, Denies weakness Psychological: Reports no symptoms Hematological/Lymphatic: Reports no symptoms Review of other systems: All other systems negative Physical Exam Related Data Allergies: Coded Allergies: Penicillins (Verified Allergy, Severe, 12/30/19) ondansetron (Verified Allergy, Severe, 12/30/19) phenazopyridine (Verified Allergy, Severe, 12/30/19) NSAIDS (Non-Steroidal Anti-Inflamma (Verified Allergy, Intermediate, 12/30/19) tramadol (Verified Allergy, Intermediate, 12/30/19) Triage Vital Signs Vital Signs Date Time Temp Pulse Resp B/P (MAP) Pulse Ox O2 Delivery O2 Flow Rate FiO2 05/12/20 14:26 98.5 128 22 159/80 100 Room Air Vital signs reviewed: Yes Physical Exam CONSTITUTIONAL Constitutional: Present well-developed, Present well-nourished, Present other (pt with speaking with "pressured speech."); Absent distressed, Absent ill appearing HENT HENT: Present normocephalic, Present atraumatic, Present oropharynx clear/moist, Present nose normal HENT L/R: Present left ext ear normal, Present right ext ear normal EYES Eyes: Reports PERRL, Reports conjunctivae normal NECK Neck: Present ROM normal PULMONARY Pulmonary: Present effort normal, Present breath sounds normal CARDIOVASCULAR Cardiovascular: Present regular rhythm, Present heart sounds normal, Present capillary refill normal, Present normal rate; Absent murmur GASTROINTESTINAL Abdominal: Present soft, Present nontender, Present bowel sounds normal; Absent tender, Absent mass GENITOURINARY Genitourinary: Present exam deferred SKIN Skin: Present warm, Present dry, Present lesion (healed/scarred lesions on the RUE, with one, round, small ulcerated macular lesion, that appears to have had the scab scratched off. No other open lesions; 0.5 cm, slightly raised, slightly tender, non-fluctuant nodule on the right pubic area that appears to be an inflamed hair follicle. Pt with shaved pubic hair. ) MUSCULOSKELETAL Musculoskeletal: Present ROM normal NEUROLOGICAL Neurological: Present alert, Present oriented x 3, Present no gross motor or sensory deficits PSYCHOLOGICAL Psychological: Present mood/affect normal, Present judgement normal Assessment & Plan Medical Decision Making MDM - Pt refused lab work or attempts at obtaining an IV, in order to administer IV antibiotics. She stated, "that she would just take some more oral antibiotics." - Pt is strongly advised to NOT PICK at her arms. She may apply heat to the nodule in the pubic area, to see if anything will drain from it. - Take ALL antibiotics, as directed. The Clindamycin is written for 4x/day--> it is important that you take 4 tabs/day, until finished. - Use the Chlorhexadene soap, as a body wash daily, while taking the antibiotics, and then 3x/week, thereafter. You may have to use it less often, if it dries your skin out too much. - Follow-up with your Primary Care Physician if your symptoms persist, or report the the ED, if you develop fevers, chills, and worsening skin infection. - Sleep with socks on your hands, if needed, to keep from scratching the sores on your skin. - Keep any open sore COVERED with antibiotic ointment and a bandaid. Assessment & Plan Final Impression: (1) Impetigo (2) Folliculitis (3) Sickle cell anemia (4) Methamphetamine use Depart Disposition: HOME, SELF-CARE Last Vital Signs Date Time Temp Pulse Resp B/P (MAP) Pulse Ox O2 Delivery O2 Flow Rate FiO2 05/12/20 14:26 98.5 128 22 159/80 100 Room Air Home Meds Active Scripts Clindamycin Hcl (CLINDAMYCIN HCL) 150 Mg Capsule, 300 MG PO QID for infection for 14 Days, #56 TAB-CAP 0 Refills 2 TABS PO TID Prov:TREE IRBY MD 05/12/20 Doxycycline Hyclate (DOXYCYCLINE HYCLATE) 100 Mg Capsule, 100 MG PO BID for skin infection for 14 Days, #28 CAP 0 Refills Prov:TREE IRBY MD 05/12/20 Promethazine Hcl* (PHENERGAN SUPP*) 25 Mg Supp, 50 MG FL Q6H PRN for NAUSEA AND VOMITING, #30 SUPP.RECT 1 Refill take 2 25 mg suppossitories at once Prov:SANDOVAL SESAY MD 05/01/20 Prednisone (PREDNISONE) 20 Mg Tab, 60 MG PO DAILY PRN for MODERATE PAIN (4-6), #15 TAB take 3 20 mg pills at once Prov:MAITE HOOKER 04/08/20 Acetaminophen/Codeine* (TYLENOL # 3*) 1 Ea Tab, 1 TAB PO Q4HR PRN for MODERATE PAIN (4-6), #30 TAB take after prednisone to control pain Prov:MAITE HOOKER 04/08/20 Acetaminophen With Codeine (TYLENOL WITH CODEINE #3 TABLET) 1 Each Tablet, 300 MG PO Q6H PRN for ABDOMINAL PAIN, #10 TAB Prov:LOLY HILARIO MD 02/28/20 Acetaminophen With Codeine (TYLENOL WITH CODEINE #3 TABLET) 1 Each Tablet, 300 MG PO QID PRN for pain for 3 Days, #12 TAB Prov:ED WAGNER MD 12/01/19 Promethazine Hcl (PHENADOZ) 25 Mg Supp.rect, 25 MG RC TID PRN for nausea, vomiting for 5 Days, #15 Prov:ED WAGNER MD 12/01/19 Sulfamethoxazole/Trimethoprim (BACTRIM DS TABLET) 1 Each Tablet, 1 EACH PO BID for 7 Days, #14 Prov:ED WAGNER MD 12/01/19 TREE IRBY MD May 12, 2020 14:45
[2020-05-12] MEDS ORDERED: DOXYCYCLINE HY100 MG PO (15:09)
[2020-05-12] MEDS ORDERED: CLINDAMYCIN HC150 MG PO (15:10)
--- OUTSIDE RECORDS SUMMARY | 2020-05-12 15:13 | XMS REPORT | Clinical Summary ---
Author Author [facility] Organization [facility] Address Unknown Phone Unavailable Care Team Providers Care Waxer Name Role Phone Philip Mcclain MD PCP [...] MD Right arm cellulitis (Primary Dx) 08/07/2019 [facility] Internal Ma dicine - Encounter 08/09/2019 [facility] MD [...] hallucinations (HCC) 05/24/2019 Emergency Emergency Medicine after 05/12/2019 Immunizations Name Administration Dates Next Due Rho (D) Immune Globulin 11/02/2016 Tdap 08/18/2016 Surgical History Surgery Date Site/Laterality Comments D&C FIRST TRIMESTER / TX INCOMPLETE / MISSED / SEPTIC / INDUCED HAND SURGERY 09/04/2016 - Right 10/01/2016 SECTION Medical History Medical History Date Comments Severe major depression with psychotic features (HCC) Endometriosis PID (acute pelvic inflammatory disease) Cellulitis Osteomyelitis of hand, right, acute (HCC) Hypoglycemia MDD (major depressive disorder) Anxiety Substance abuse (HCC) Diverticulosis Chronic pain Family History Medical History Relation Name Comments [...] or suspected to have Coronavirus / COVID-19? Obstetrics History Term Pre Abrt (TAB) (SAB) (Ect) Mult Lvng Comments Grav Para 3 0 0 0 0 0 0 2 Largest infant delivered vaginally was 8 lbs 4 3 Date GA Total Labor Labor/2nd/3rd Weight Sex Delivery Anes PTL Tena A1 A5 Name Clin Outcome Vag-Spont Living Term Complications: None Vag-Spont Living Term Complications: None CS-Unspec Term Last Filed Vital Signs Reading Time Taken [...] US PELVIC TRANSABDOMINAL STAT 09/09/2019 7:35 PM DIRECTOR OF ACADEMIC URINE CULTURE STAT 09/09/2019 5:54 PM DIRECTOR OF ACADEMIC ESTIMATED GFR STAT 09/09/2019 4:55 PM DIRECTOR OF ACADEMIC URINE DRUGS OF ABUSE STAT 09/09/2019 SCREEN 4:55 PM DIRECTOR OF ACADEMIC HCG QUALITATIVE, SERUM STAT 09/09/2019 SCREEN 4:55 PM DIRECTOR OF ACADEMIC URINALYSIS SCREEN AND STAT 09/09/2019 MICROSCOPY, WITH REFLEX 4:55 PM DIRECTOR OF ACADEMIC TO CULTURE LIPASE LEVEL STAT 09/09/2019 4:55 PM DIRECTOR OF ACADEMIC COMPREHENSIVE METABOLIC STAT 09/09/2019 PANEL 4:55 PM DIRECTOR OF ACADEMIC HC COMPLETE BLD COUNT STAT 09/09/2019 W/AUTO DIFF 4:55 PM DIRECTOR OF ACADEMIC ESTIMATED GFR Routine 08/09/2019 4:45 AM DIRECTOR OF ACADEMIC BASIC METABOLIC PANEL Routine 08/09/2019 4:45 AM DIRECTOR OF ACADEMIC URINE DRUGS OF ABUSE Routine 08/08/2019 SCREEN 2:15 PM DIRECTOR OF ACADEMIC ESTIMATED GFR Routine 08/08/2019 5:06 AM DIRECTOR OF ACADEMIC HC COMPLETE BLD COUNT Routine 08/08/2019 W/AUTO DIFF 5:06 AM DIRECTOR OF ACADEMIC BASIC METABOLIC PANEL Routine 08/08/2019 5:06 AM DIRECTOR OF ACADEMIC LACTIC ACID LEVEL, SEPSIS Timed 08/08/2019 - NOW AND REPEAT 2X EVERY 2:35 AM DIRECTOR OF ACADEMIC 3 HOURS LACTIC ACID LEVEL, SEPSIS Timed 08/07/2019 - NOW AND REPEAT 2X EVERY 11:48 PM DIRECTOR OF ACADEMIC 3 HOURS ESTIMATED GFR STAT 08/07/2019 9:25 PM DIRECTOR OF ACADEMIC HCG QUALITATIVE, SERUM STAT 08/07/2019 SCREEN 9:25 PM DIRECTOR OF ACADEMIC LACTIC ACID LEVEL, SEPSIS STAT 08/07/2019 - NOW AND REPEAT 2X EVERY 9:25 PM DIRECTOR OF ACADEMIC 3 HOURS HC COMPLETE BLD COUNT STAT 08/07/2019 W/AUTO DIFF 9:25 PM DIRECTOR OF ACADEMIC COMPREHENSIVE METABOLIC STAT 08/07/2019 PANEL 9:25 PM DIRECTOR OF ACADEMIC BLOOD CULTURE, AEROBIC & Routine 08/07/2019 ANAEROBIC 9:25 PM DIRECTOR OF ACADEMIC BLOOD CULTURE, AEROBIC & Routine 08/07/2019 ANAEROBIC 9:20 PM DIRECTOR OF ACADEMIC US PELVIC TRANSVAGINAL STAT 06/21/2019 12:11 AM DIRECTOR OF ACADEMIC US PELVIC TRANSABDOMINAL STAT 06/21/2019 12:[address] ABDOMEN PELVIS W STAT 06/20/2019 CONTRAST 11:14 PM DIRECTOR OF ACADEMIC GRAM STAIN STAT 06/20/2019 9:23 PM DIRECTOR OF ACADEMIC URINE CULTURE STAT 06/20/2019 9:23 PM DIRECTOR OF ACADEMIC ESTIMATED GFR STAT 06/20/2019 8:58 PM DIRECTOR OF ACADEMIC LIPASE LEVEL STAT 06/20/2019 8:58 PM DIRECTOR OF ACADEMIC COMPREHENSIVE METABOLIC STAT 06/20/2019 PANEL 8:58 PM DIRECTOR OF ACADEMIC HC COMPLETE BLD COUNT STAT 06/20/2019 W/AUTO DIFF 8:58 PM DIRECTOR OF ACADEMIC HCG QUALITATIVE, URINE STAT 06/20/2019 SCREEN 8:54 PM DIRECTOR OF ACADEMIC URINALYSIS SCREEN AND STAT 06/20/2019 MICROSCOPY, WITH REFLEX 8:54 PM DIRECTOR OF ACADEMIC TO CULTURE ESTIMATED GFR STAT 06/08/2019 7:25 AM DIRECTOR OF ACADEMIC COMPREHENSIVE METABOLIC STAT 06/08/2019 PANEL 7:25 AM DIRECTOR OF ACADEMIC HC COMPLETE BLD COUNT STAT 06/08/2019 W/AUTO DIFF 7:25 AM DIRECTOR OF ACADEMIC T4, FREE STAT 06/08/2019 7:02 AM DIRECTOR OF ACADEMIC THYROID STIMULATING STAT 06/08/2019 HORMONE 7:02 AM DIRECTOR OF ACADEMIC HCG QUALITATIVE, SERUM STAT 06/08/2019 SCREEN 7:02 AM DIRECTOR OF ACADEMIC URINE DRUGS OF ABUSE STAT 06/08/2019 SCREEN 7:02 AM DIRECTOR OF ACADEMIC ESTIMATED GFR STAT 05/27/2019 2:45 PM CDT [...] CULTURE STAT 05/24/2019 2:24 PM CDT after 05/12/2019 Results * Estimated GFR (04/12/2020 2:45 PM CDT) Only the most recent of 12 results within the time period is included. Pathologist [facility] Estimated GFR >=90 mL/min/1.73 m2 [place] Comment: [facility] Interpretation G1 >=90 Normal or high G2 [...] published in 2014. Specimen Performing Organization Address [facility] [place] [address] PATHOLOGY AND [facility] MEDICINE [address] * Thyroid stimulating hormone (04/12/2020 2:45 PM CDT) Only the most recent of 4 results within the time period is included. TSH 0.28 (L) 0.55 - 4.78 uIU/mL [facility] Specimen Serum Performing Organization Address [facility] P alexi Number [facility] [place] [address] PATHOLOGY AND GENOMIC MEDICINE [address] * T4, free (04/12/2020 2:45 PM CDT) Only the most recent of 4 results within the time period is included. T4, free 0.8 0.8 - 1.8 ng/dL [facility] Specimen Serum Performing Organization Address [facility] P aleix Number [facility] [place] [address] PATHOLOGY AND GENOMIC MEDICINE [address] * Creatine kinase, total (CPK) (04/12/2020 2:45 PM CDT) Only the most recent of 3 results within the time period is included. Creatine kinase 90 35 - 200 U/L [facility] Specimen Blood Performing Organization Address [facility] P alexi Number [facility] [address] PATHOLOGY AND GENOMIC MEDICINE [address] * Alcohol level, blood (04/12/2020 2:45 PM CDT) Only the most recent of 3 results within the time period is included. Alcohol None Detected mg/dL [place] Comment: [facility] None Detected Legal Intoxication in [place] 80 mg/dL (0.08%) - Whole Blood Toxic Concentration 200 mg/dL (0.2%) Potentially Fatal 350 - 500 mg/dL (0.35 - 0.5%) Alcohol percent None Detected % [facility] Specimen Blood Performing Organization Address [facility] P alexi Number [address] * Acetaminophen level (04/12/2020 2:45 PM CDT) Only the most recent of 3 results within the time period is included. [facility] Acetaminophen <15.9 ug/mL [place] level Comment: [facility] HOSPITAL 10-30 ug/mL Possible Toxicity 150-200 ug/mL Probable Toxicity >200 ug/mL Specimen Serum Performing Organization Address [facility] P alexi Number [address] * Salicylate level (04/12/2020 2:45 PM CDT) Only the most recent of 3 results within the time period is included. Pathologist [facility] Salicylate <0.4 mg/dL [place] Comment: [facility] Therapeutic Range: HOSPITAL 5 - 30 mg/dL Specimen Serum Performing Organization Address City/[facility] P alexi Number [address] MEDICINE [address] * Comprehensive metabolic panel (04/12/2020 2:45 PM CDT) Only the most recent of 9 results within the time period is included. [facility] Signature Sodium 136 135 - 148 mEq/L [facility] Potassium 5.3 (H)Comment: Specimen 3.5 - 5.0 mEq/L [facility] hemolyzed [facility] Chloride 100 99 - 109 mEq/L [facility] CO2 22 (L) 24 - 31 mEq/L [facility] Anion gap 14@ANIO 7 - 15 mEq/L [facility] BUN 9 8 - 24 mg/dL [facility] Creatinine 0.51 0.50 - 0.90 mg/dL [facility] Glucose 83 65 - 99 mg/dL [facility] Calcium 9.3 8.6 - 10.6 mg/dL [facility] Protein 7.2 6.3 - 8.2 g/dL [facility] Albumin 3.7 3.5 - 5.0 g/dL [facility] A/G ratio 1.1 0.7 - 3.8 [facility] Alkaline 44 30 - 115 U/L [place] phosphatase [facility] AST 40 15 - 46 U/L [facility] ALT 11 10 - 55 U/L [facility] Total bilirubin <0.3 0.2 - 1.2 mg/dL [facility] Specimen Blood Performing Organization Address City/State/ZIP Code [place] [address] [place] [address] PATHOLOGY AND GENOMIC MEDICINE [facility] [place] [address] * Urinalysis screen and microscopy, with reflex to culture (04/12/2020 1:50 PM CDT) Only the most recent of 6 results within the time period is included. Specimen site Clean catch [facility] Color, UA Yellow [facility] Appearance, UA Sl Cloudy [facility] Specific 1.011 1.001 - 1.035 [place] gravity, [facility] pH, UA 8.0 5.0 - 8.5 [facility] Protein, UA Negative Negative [facility] Glucose, UA Negative Negative [facility] Ketones, UA Negative Negative [facility] Bilirubin, UA Negative Negative [facility] Blood, UA Negative Negative [facility] Nitrite, UA Negative Negative [facility] Urobilinogen, <2.0 <2.0 [facility] Leukocyte Negative Negative [place] esterase, [facility] Epithelial >20 /HPF [place] cells, [facility] WBC, UA 2 0 - 4 /HPF [facility] RBC, UA None seen 0 - 5 /HPF [facility] Bacteria, UA Few None seen [facility] Yeast, UA None seen [facility] Yeast with None seen [place] [facility] Specimen Urine Performing Organization Address City/State/ZIP Code P alexi Number [facility] DEPARTMENT [address] [place] [address] PATHOLOGY AND GENOMIC MEDICINE [address] * Urine drugs of abuse screen (04/12/2020 1:50 PM CDT) Only the most recent of 5 results within the time period is included. Amphetamine Negative [place] screen, urine [facility] Barbiturate Negative [place] screen, urine [facility] Benzodiazepine Negative [place] screen, urine [facility] Cocaine screen, Negative [place] urine [facility] Methadone Negative [place] metabolite [facility] (ED[facility]), [facility] Opiates screen, Positive (A) [place] urine [facility] Oxycodone Negative [place] screen, urine [facility] Phencyclidine Negative [place] screen, urine [facility] Tricyclic Negative [place] screen, urine [facility] Cannabinoid Negative [place] screen, urine Comment: [facility] Drug screen minimum HOSPITAL concentration of [...] is required. Specimen Urine Performing Organization Address City/State/ZIP Code P alexi Number [address] [place] [address] PATHOLOGY AND [facility] MEDICINE [address] * Urine culture (04/12/2020 1:50 PM CDT) Only the most recent of 6 results within the time period is included. Urine culture SEE COMMENTComment: [place] Bacteriuria screen negative. [facility] Specimen Performing Organization Address City/State/ZIP [facility] P alexi Number [facility] DEPARTMENT [place] [address] [place] [address] PATHOLOGY AND GENOMIC MEDICINE [place] [facility] [address] [place], [place] [address] HOSPITAL * hCG qualitative, urine screen (03/30/2020 12:18 PM CDT) Only the most recent of 2 results within the time period is included. hCG NegativeComment: Sensitivity [place] qualitative, of HCG test: 25 mIU/ml [facility] Specimen Urine Performing Organization Address City/State/ZIP Code P alexi Number [facility] [place] [place] [address] [facility]. [place], [place] [address] PATHOLOGY AND GENOMIC MEDICINE [facility] [address] [facility] [place] [address] [facility] * CT Abdomen Pelvis W Contrast (03/30/2020 11:57 AM CDT) Only the most recent of 2 results within the time period is included. Specimen Narrative Performed At EXAMINATION: CT ABDOMEN PELVIS W CONTRAST [place] CLINICAL HISTORY: 34 years old Female. [...] perforation, ascites, flui d collection or hydronephrosis. [facility]-[id number] Procedure Note [facility], Radiology Results Incoming - 03/30/2020 12:08 PM [...] obstruction, perforation, ascites, fluid collection or hydronephrosis. [facility]-[id number] Performing Organization Address City/[facility]/ZIP Code P alexi Number [facility] [address] [place] [address] * XR Abdomen Acute Inc Chest (03/30/2020 [...] may indicate constipation. [id number] Performing Organization Address City/[facility]/ZIP Code P alexi Number [facility] [address] [place] [address] * Troponin (03/30/2020 10:10 AM CDT) Troponin <0.006 0.000 - 0.040 ng/mL [place] Comment: [facility] In patients suspected of [facility] having a myocardial infarction, along with all [...] 0.020 ng/mL Specimen Blood Performing Organization Address City/[facility] P alexi Number [facility] [id number] [place] [address] * Prothrombin time with INR (03/30/2020 10:10 AM CDT) Pathologist [facility] Prothrombin 13.0 11.5 - 14.[address] [facility] INR 1.0 [place] Comment: [facility] [employer] Normalized [facility] Ratio (INR) is a therapeutic monitoring tool for patients who are stable on oral anticoagulant therapy. An INR of 2.0-3.0 is suggested for deep vein thrombosis/pulmonary embolism. Specimen Blood Performing Organization Address City/[facility] P alexi Number [facility] [id number] [place] [address] PATHOLOGY AND [facility] MEDICINE [address] * CBC with platelet and differential (03/30/2020 10:10 AM CDT) Only the most recent of 10 results within the time period is included. WBC 4.2 (L) 4.5 - 11.0 k/uL [facility] RBC 3.96 (L) 4.20 - 5.50 m/uL [facility] HGB 12.9 12.0 - 16.0 g/dL [facility] HCT 37.9 37.0 - 47.0 % [facility] MCV 95.7 82.0 - 100.0 fL [facility] MCH 32.6 27.0 - 34.0 pg [facility] MCHC 34.0 31.0 - 37.0 g/dL [facility] RDW - SD 42.2 37.0 - 55.0 fL [facility] MPV 10.7 6.9 - 11.0 fL [facility] Platelet count 263 150 - 400 K/uL [facility] Nucleated RBC 0.00 /100 WBC [facility] Neutrophils 58.1 39.0 - 69.0 % [facility] Lymphocytes 30.8 25.0 - 45.0 % [facility] Monocytes 6.5 0.0 - 10.0 % [facility] Eosinophils 3.4 0.0 - 5.0 % [facility] Basophils 1.0 0.0 - 1.0 % [facility] Immature 0.2 0.0 - 1.0 % [place] granulocytes [facility] Specimen Blood Performing Organization Address [facility] P alexi Number [address] [address] PATHOLOGY AND [address] * hCG qualitative, serum screen (03/30/2020 10:10 AM CDT) Only the most recent of 7 results within the time period is included. hCG NegativeComment: Sensitivity [place] qualitative, of HCG test: 25 mIU/mL [facility] Specimen Blood Performing Organization Address City/[facility]/ZIP Code P alexi Number [address] [address] PATHOLOGY AND GENOMIC MEDICINE [address] * B natriuretic peptide (03/30/2020 10:10 AM CDT) BNP 14 0 - 100 pg/mL [facility] Specimen Blood Performing Organization Address City/[facility]/ZIP Code P alexi Number [address] [address] PATHOLOGY AND GENOMIC MEDICINE [facility] [address] * Lipase level (03/30/2020 10:10 AM CDT) Only the most recent of 4 results within the time period is included. Lipase 20 13 - 60 U/L [facility] Specimen Blood Performing Organization Address [facility]/ZIP [facility] P alexi Number [facility] [place] [address] [place], [place] [address] PATHOLOGY AND GENOMIC MEDICINE [facility] [address] * ECG ED Preliminary Interpretation - [...] Physician in the abs ence of a vba developer: yes Interpretation: Interpretation: abnormal Rate: ECG rate: [...] MUSE rate Atrial rate 116 [facility] MUSE TN interval 132 [facility] MUSE QRSD interval 70 [...] is n ot available. Performing Organization Address [facility] P alexi Number [facility] MUSE [address] [place] [address] * CT Abdomen Pelvis Wo Contrast (01/12/2020 9:45 PM CDT) Specimen Narrative Performed At CT ABDOMEN PELVIS WO CONTRAST [facility] CLINICAL INDICATION: abd pain TECHNIQUE: Multidetector [...] outlet obstruction. No hydro nephrosis or hydroureter. [facility]-[id number] Procedure Note Interface, Radiology Results Incoming - [...] or outlet obstruction. No hydronephrosis or hydroureter. [facility]-[id number] Performing Organization Address City/State/ZIP Code P alexi Number [facility] [address] [place] [address] * Occult blood, stool (01/12/2020 9:13 PM CDT) Occult blood, Negative for occult blood. [place] stool Comment: [facility] Specimen Information [facility] Specimen Source: Stool Specimen Site: Nonpreserved Specimen Stool - Nonpreserved Performing Organization Address City/State/ZIP Code P alexi Number [facility] [place] [place] [address] [place] [address] PATHOLOGY AND GENOMIC MEDICINE [facility] [address] [place], [place] [address] HOSPITAL * US Pelvic Transvaginal (01/12/2020 9:04 PM CDT) Only the most recent of 2 results within the time period is included. Specimen Narrative Performed At EXAMINATION: US PELVIC TRANSABDOMINAL, US PELVIC TR ANSVAGINAL [facility] CLINICAL H[facility]ORY: lower abd pain [...] transabdominal and endovaginal pelvic u ltrasound examination. [id number] Procedure Note Hm Interface, Radiology Results Incoming [...] unremarkable transabdominal and endovaginal pelvic ultrasound examination. [facility]-[id number] Performing Organization Address City/State/ZIP Code P alexi Number [facility] [address] [place] [address] * US Pelvic Transabdominal (01/12/2020 9:04 PM [...] transabdominal and endovaginal pelvic u ltrasound examination. [facility]-[id number] Procedure Note Hm Interface, Radiology Results Incoming [...] unremarkable transabdominal and endovaginal pelvic ultrasound examination. [facility]-[id number] Performing Organization Address City/[facility]/ZIP Code P alexi Number [facility] [address] [place] [address] * Basic metabolic panel (08/09/2019 4:45 AM DIRECTOR OF ACADEMIC) Only the most recent of 3 results within the time period is included. Sodium 137 135 - 148 mEq/L [facility] Potassium 4.1 3.5 - 5.0 mEq/L [facility] Chloride 109 98 - 112 mEq/L [facility] CO2 20 (L) 24 - 31 mEq/L [facility] Anion gap 8@ANIO 7 - 15 mEq/L [facility] BUN 10 6 - 20 mg/dL [facility] Creatinine 0.67 0.50 - 0.90 mg/dL [facility] Glucose 94 65 - 99 mg/dL [facility] Calcium 8.3 8.3 - 10.2 mg/dL [facility] Specimen Plasma specimen Performing Organization Address City/[facility]/ZIP Code P alexi Number [facility] [place] [address] [place], [place] [address] PATHOLOGY AND GENOMIC MEDICINE [facility] [address] [place] [address] [facility] * Lactic acid level, SEPSIS - Now and repeat 2x every 3 hours (08/08/2019 2:35 AM DIRECTOR OF ACADEMIC) Only the most recent of 3 results within the time period is included. Lactic acid 0.7 0.5 - 2.2 mmol/L [facility] Specimen Plasma specimen Performing Organization Address City/[facility]/ZIP Code P alexi Number [facility] [place] [place] [address] [place], [place] [address] PATHOLOGY AND GENOMIC MEDICINE [facility] [address] [place] [address] [facility] * Blood culture, aerobic & anaerobic (08/07/2019 9:25 PM DIRECTOR OF ACADEMIC) Only the most recent of 2 results within the time period is included. Blood culture No growth after 5 days of [place] isolate incubation. [facility] Comment: HOSPITAL Specimen Information Specimen Source: Blood Specimen Site: Antecubital, left Specimen Blood - Antecubital, left Performing Organization Address [facility] P alexi Number [facility] DEPARTMENT [address] [place] [address] PATHOLOGY AND GENOMIC MEDICINE [address] * Gram stain (06/20/2019 9:23 PM DIRECTOR OF ACADEMIC) Gram stain No WBC's [place] result Many Gram variable rods [facility] Comment: HOSPITAL Specimen Information Specimen Source: Urine Specimen Site: Clean catch Specimen Urine Performing Organization Address [facility] P alexi Number [facility] [place] [place] [address] PATHOLOGY AND GENOMIC MEDICINE [address] after 05/12/2019 Insurance Type Payer Benefit Subscriber ID Effective Phone Address Plan / Dates Group PPO MULTIPLAN MULTIPLAN [id number] 2019-P [facility] PPO resent Advance Directives For more information, please contact: [phone] Patient Clinical Data Abstractor Explanation Type Date Recorded Advance Directives, 06/20/2019 9:35 PM Living Will and Medical Power of Pressure Test Operator Advance Directives, 05/13/2018 5:15 PM Living Will and Medical Power of Pressure Test Operator Advance Directives, 06/20/2019 9:37 PM Living Will and Medical Power of Pressure Test Operator Advance Directives, 06/20/2019 9:39 PM Living Will and Medical Power of Pressure Test Operator Date Inactivated Comments Code Status Date Activated [...]
--- OUTSIDE RECORDS SUMMARY | 2020-05-12 15:13 | XMS REPORT | Clinical Summary ---
Author Author [facility] Address Unknown Phone Unavailable Care Team Providers Care Recruitment Consultant Name Role Phone Pcp, No PCP Unavailable [...] for Anxiety. Max Daily Amount: 15 mg Active hydroxyurea (DROXIA) 500 Take by mouth 0 mg capsule daily. 06/22/2019 Discontinued diazepam (VALIUM) 10 MG Take [...] (20 mg total) 9 by mouth daily. 06/23/2019 acetaminophen-codeine Take 1-2 0 06/20/20 1 [...] Encounters Care Team Description Date Type Specialty Luca Urena MD Stone, Mary Catherine, MD Generalized abdominal pain (Primary Dx); Nausea and vomiting in adult 05/06/2020 Emergency Emergency Medicine Thomas George MD Chronic abdominal pain (Primary [...] Emergency Emergency Medicine Agata Hdez MD 12/31/2019 [facility] Internal Me dicine - Encounter 01/01/2020 Nathaly Downs MD Acute cystitis without hematuria (Primar y Dx); Suprapubic abdominal pain 12/25/2019 Emergency Emergency Medicine 12/25/2019 Nathaly Livingston MD Nausea and vomiting in adult patient [...] Tolentino MD 06/22/2019 Emergency Emergency Medicine after 05/12/2019 Family History Medical History Relation Name Comments [...] Vital Signs Time Taken Vital Sign Reading 05/06/2020 6:38 PM CDT Blood Pressure 113/65 05/06/2020 6:38 PM CDT Pulse 91 05/06/2020 5:23 PM CDT Temperature 36.6 C (97.8 F) 05/06/2020 6:38 PM CDT Respiratory Rate 16 05/06/2020 6:38 PM CDT Oxygen Saturation 98% - Inhaled Oxygen - Concentration 05/06/2020 5:23 PM CDT Weight 68 kg (150 lb) 05/06/2020 5:23 PM CDT Height 165.1 cm (5' 5") 05/06/2020 5:23 PM CDT Body Mass Index 24.96 Plan of Treatment Health Maintenance Due Date Last Done Comments PNEUMOCOCCAL VACCINE 2-64 12/20/1989 YEARS AT RISK (1 of 1 - PPSV23) CERVICAL CANCER SCREENING 12/20/2004 PAP ONLY (Age 21-65) INFLUENZA VACCINE (#1) 2020 LIPID PANEL 04/28/2022 04/28/2019, 018 Procedures Comments Procedure Name Priority Date/Time Associated Diag nosis CBC W/PLT COUNT & AUTO STAT 05/06/2020 DIFFERENTIAL 6:14 PM CDT RETICULOCYTE COUNT STAT 05/06/2020 6:14 PM CDT SCREEN, URINE STAT 05/06/2020 6:14 PM CDT URINALYSIS W/ MICROSCOPIC STAT 05/06/2020 6:14 PM CDT CBC W/PLT COUNT & AUTO STAT 05/06/2020 DIFFERENTIAL 6:14 PM CDT LIPASE STAT 05/06/2020 6:14 PM CDT COMPREHENSIVE METABOLIC STAT 05/06/2020 PANEL 6:14 PM CDT CBC W/PLT COUNT & AUTO [...] LAB REPORT - 09/29/2019 SCAN 3:33 PM FILM CRITIC US PELVIS WITH ENDOVAG STAT 09/24/2019 WITH DOPPLER 12:15 PM FILM CRITIC URINALYSIS W/ REFLEX STAT 09/24/2019 URINE CULTURE 9:56 AM FILM CRITIC SCREEN, URINE STAT 09/24/2019 9:[address] ABDOMEN/PELVIS WITH IV STAT 08/17/2019 CONTRAST 12:56 PM FILM CRITIC SCREEN, URINE STAT 08/17/2019 12:33 PM FILM CRITIC CBC W/PLT COUNT & AUTO STAT 08/17/2019 DIFFERENTIAL 11:37 AM FILM CRITIC LIPASE STAT 08/17/2019 11:37 AM FILM CRITIC HEPATIC FUNCTION PANEL STAT 08/17/2019 11:37 AM FILM CRITIC LACTIC ACID, VENOUS STAT 08/17/2019 11:37 AM FILM CRITIC BASIC METABOLIC PANEL (7) STAT 08/17/2019 11:37 AM FILM CRITIC CBC W/PLT COUNT & AUTO STAT 08/17/2019 DIFFERENTIAL 11:37 AM FILM CRITIC US PELVIS WITH ENDOVAG STAT 08/03/2019 WITH DOPPLER 1:[address] ABDOMEN/PELVIS WITH IV STAT 08/02/2019 CONTRAST 11:01 PM FILM CRITIC LIPASE STAT 08/02/2019 10:21 PM FILM CRITIC COMPREHENSIVE METABOLIC STAT 08/02/2019 PANEL 10:21 PM FILM CRITIC CBC W/PLT COUNT & AUTO STAT 08/02/2019 DIFFERENTIAL 9:07 PM FILM CRITIC CBC W/PLT COUNT & AUTO STAT 08/02/2019 DIFFERENTIAL 9:07 PM FILM CRITIC URINALYSIS W/ MICROSCOPIC STAT 08/02/2019 9:00 PM FILM CRITIC SCREEN, URINE STAT 08/02/2019 9:00 PM FILM CRITIC (MANUAL DIFFERENTIAL) STAT 07/28/2019 7:09 PM FILM CRITIC CBC W/PLT COUNT & AUTO STAT 07/28/2019 DIFFERENTIAL 7:09 PM FILM CRITIC URINALYSIS W/ MICROSCOPIC STAT 07/28/2019 7:09 PM FILM CRITIC SCREEN, URINE STAT 07/28/2019 7:09 PM FILM CRITIC CBC W/PLT COUNT & AUTO STAT 07/28/2019 DIFFERENTIAL 7:09 PM FILM CRITIC LIPASE STAT 07/28/2019 7:09 PM FILM CRITIC COMPREHENSIVE METABOLIC STAT 07/28/2019 PANEL 7:09 PM FILM CRITIC after 05/12/2019 Results * CBC with platelet count + automated diff (05/06/2020 6:14 PM CDT) Only the most recent of 9 results within the time period is included. WBC 4.8 4.0 - 10.0 K/L [facility] RBC 3.90 (L) 4.00 - 5.00 M/L [facility] Hemoglobin 12.5 12.0 - 15.5 GM/DL [facility] Hematocrit 37.4 36.0 - 46.0 % [facility] MCV 95.9 82.0 - 99.0 fL [facility] MCH 32.1 27.0 - 33.0 pg [facility] MCHC 33.4 32.0 - 36.0 GM/DL [facility] RDW 12.5 12.0 - 15.0 % [facility] Platelets 268 150 - 430 K/CU MM [facility] MPV 11.3 6.0 - 11.5 fL [facility] nRBC 0 0 - 0 /100 WBC [facility] % Neutros 61 % [facility] % Lymphs 30 % [facility] % Monos 6 % [facility] % Eos 2 % [facility] % Baso 0 % [facility] # Neutros 2.90 1.80 - 8.00 K/L [facility] # Lymphs 1.45 (L) 1.48 - 4.50 K/L [facility] # Monos 0.29 0.00 - 1.30 K/L [facility] # Eos 0.11 0.00 - 0.50 K/L [facility] # Baso 0.02 0.00 - 0.20 K/L [facility] Immature 0 0 - 0 % [facility] Granulocytes-Relative [facility] Specimen Blood Performing Organization Address City/[facility] Ph one Number [facility] [address] [place] [phone] * screen, urine (05/06/2020 6:14 PM CDT) Only the most recent of 8 results within the time period is included. Preg Test, Ur Negative [facility] Specimen Urine Performing Organization Address [facility] one [facility] [address] [place] [phone] * Urinalysis w/Microscopic (05/06/2020 6:14 PM CDT) Only the most recent of 7 results within the time period is included. Color, UA Yellow [facility] Clarity, UA Clear [facility] Specific [place], UA 1.025 1.001 - 1.035 [facility] pH, UA 5.5 5.0 - 8.0 [facility] Protein, UA Negative Negative [facility] Glucose, UA Negative Negative [facility] Ketones, UA Negative Negative [facility] Bilirubin, UA Negative Negative [facility] Blood, UA Negative Negative [facility] Nitrite, UA Negative Negative [facility] Leukocytes, UA Trace (A) Negative [facility] Urobilinogen, UA 0.2 0.2 - 1.0 mg/dL [facility] Bacteria, UA Few [facility] RBC, UA None Seen /HPF [facility] WBC, UA 5-10 /HPF [facility] SQUAMOUS EPITHELIAL 5-10 /HPF [facility] RENAL EPITHELIAL <5 /HPF [facility] Specimen Source [facility] Specimen Urine Performing Organization Address [facility] Ph one Number [facility] [address] [place] [address] [phone] * Reticulocytes (05/06/2020 6:14 PM CDT) % Retic 1.1 0.4 - 2.9 % [facility] Specimen Blood Performing Organization Address [facility] one Number [facility] [address], [place] [phone] * Lipase (05/06/2020 6:14 PM CDT) Only the most recent of 8 results within the time period is included. Lipase 13 6 - 51 U/L [facility] Specimen Blood Narrative Performed At Area Field Worker ID - ADMIN [facility] Performing Organization Address [facility] Health one Number [facility] [address] [place] [address] * Comprehensive metabolic panel (05/06/2020 6:14 PM CDT) Only the most recent of 4 results within the time period is included. Protein, Total 7.7Comment: Specimen markedly 6.0 - 8.5 gm/dL [facility] hemolyzed [facility] Albumin 4.1Comment: Specimen markedly 3.5 - 5.0 g/dL [facility] Alkaline Phosphatase 45 30 - 115 U/L [facility] Total Bilirubin 0.2Comment: Specimen markedly 0.1 - 1.2 mg/dL [facility] Sodium 138 135 - 148 meq/L [facility] Potassium 4.8Comment: Specimen markedly 3.6 - 5.5 meq/L [facility] Chloride 105 98 - 106 meq/L [facility] CO2 20 20 - 29 meq/L [facility] BUN 9 (L) 10 - 26 mg/dL [facility] Creatinine 0.67Comment: Specimen markedly 0.50 - 1.20 mg/ dL [facility] Glucose 90 70 - 110 mg/dL [facility] Calcium 9.1 8.5 - 10.5 mg/dL [facility] AST 30Comment: Specimen markedly 5 - 40 U/L [facility] ALT 9Comment: Specimen markedly 5 - 50 U/L [facility] EGFR 121Comment: ESTIMATED GFR IS mL/min/1.73 sq m [facility] NOT ACCURATE CREATININE LAB[facility]ORY CLEARANCE IN PREDICTING GLOMERULAR FILTRATION RATE. ESTIMATED GFR IS NOT APPLICABLE FOR DIALYSIS PATIENTS. Specimen Blood Narrative Performed At Area Field Worker ID - ADMIN [facility] Performing Organization Address [facility]/Zipcode Ph one Number [facility] [address] [place] [address] * hCG, serum, qualitative (03/08/2020 1:29 PM CDT) Preg Test, Serum Negative [facility] Specimen Body Fluid Performing Organization Address [facility] Ph one Number [facility] [address] [place] [address] * CT abdomen pelvis without contrast (01/14/2020 7:17 PM CDT) Only the most recent of 2 results within the time period is included. Specimen Narrative Performed At FINAL REPORT [employer] CLINICAL HISTORY: Dysuria FINDINGS: Multiple axial images of the abdomen an d pelvis were performed without intravenous contrast. Oral cont rast was not given. There is enteric contrast in the colon from rece nt imaging procedure performed at an outside facility. This exam was performed according to [facility] departmental dose-optimization program, which includ es automated exposure control, adjustment of the mA and/or kV accordin g to patient size and/or use of the iterative reconstruction technUrban Interactions ue. Comparison: 12/25/2019 Lower chest: Clear lungs. [...] Verified Date/Time: 01/14/2020 19:36:56 Performing Organization Address City/State/[facility] Ph one Number [facility] * Basic metabolic panel (Na, K+, Cl, CO2, Glu, Ca, BUN, Cr) (01/14/2020 6:52 PM CDT) Only the most recent of 5 results within the time period is included. Sodium 136 135 - 148 meq/L [facility] Potassium 4.9Comment: Specimen 3.6 - 5.5 meq/L [facility] [place] [facility] Chloride 109 (H) 98 - 106 meq/L [facility] CO2 15 (L) 20 - 29 meq/L [facility] BUN 18 10 - 26 mg/dL [facility] Creatinine 0.69Comment: Specimen 0.50 - 1.20 mg/dL [facility] Glucose 70 70 - 110 mg/dL [facility] Calcium 9.4 8.5 - 10.5 mg/dL [facility] EGFR 117Comment: ESTIMATED GFR IS mL/min/1.73 sq m [facility] NOT ACCURATE CREATININE LAB[facility]ORY CLEARANCE IN PREDICTING GLOMERULAR FILTRATION RATE. ESTIMATED GFR IS NOT APPLICABLE FOR DIALYSIS PATIENTS. Specimen Blood Narrative Performed At Area Field Worker ID - [id number] [facility] Performing Organization Address [facility] one [facility] [address], [place] [phone] * Liver Panel (01/14/2020 4:40 PM CDT) Only the most recent of 4 results within the time period is included. Protein, Total 8.8 (H) 6.0 - 8.5 gm/dL [facility] Albumin 4.4 3.5 - 5.0 g/dL [facility] Total Bilirubin 0.2 0.1 - 1.2 mg/dL [facility] Bilirubin, Direct <0.1 0.0 - 0.4 mg/dL [facility] Alkaline Phosphatase 36 30 - 115 U/L [facility] AST 35 5 - 40 U/L [facility] ALT 11 5 - 50 U/L [facility] Specimen Blood Narrative Performed At Area Field Worker ID - MANUELITO [facility] Performing Organization Address [facility] one [facility] [address] [place] [address] [phone] * Rapid drug screen, urine (01/14/2020 4:29 [...] pH, UA 7.0 5.0 - 8.0 [facility] Specimen Urine Narrative Performed At [facility] Cocaine 300 ng/mL [facility] Glhikdhascc09 n g/mL Cztcnyttukivrt350 ng/mL Barbiturate 200 ng/ mL Vqphusulrbbpb42 ng/ mL Opiate3 00 ng/mL Methadone 300 n g/mL Amphetamine/ 1000 ng/mL Methamphetamine This assay provides an unconfirmed qual itative test result for the clinical management of patients in emergency sit uations. Chain of custody not maintained. Some gsvh-xzh-uoturta medications, as w ell as adulterants, may cause inaccurate results. Clinical correlation should be applied. A more comprehensive drug screen or confirmation of a detected dr ug may be performed upon request. Area Field Worker ID - MANUELITO Area Field Worker ID - MANUELITO Area Field Worker ID - MANUELITO Area Field Worker ID - MANUELITO Area Field Worker ID - MANUELITO Area Field Worker ID - MANUELITO Area Field Worker ID - MANUELITO Area Field Worker ID - MANUELITO Performing Organization Address [facility] one [facility] [address] [place] [phone] * Urine culture (01/14/2020 4:29 PM CDT) Only the most recent of 2 results within the time period is included. Result >100,000 col/mL skin vane [facility] Specimen Urine Performing Organization Address [facility] one [facility] [address] [place] [phone] * TSH/Free T4 If Indicated (01/01/2020 6:24 AM CDT) TSH 0.330 (L) 0.350 - 5.500 uIU/mL [facility] Specimen Blood Narrative Performed At Area Field Worker ID - [id number] [facility] Performing Organization Address [facility] one [facility] [address] [place] [phone] * T4, free (01/01/2020 6:24 AM CDT) Free T4 0.79 (L) 0.90 - 1.80 ng/dL [facility] Specimen Blood Narrative Performed At Area Field Worker ID - [id number] [facility] Performing Organization Address [facility] one [facility] [address] [place] [phone] * Lactic acid, venous (12/25/2019 2:10 AM CDT) Only the most recent of 3 results within the time period is included. Lactate, Venous 0.41 (L) 0.50 - 2.00 mmol/L [facility] Specimen Blood Narrative Performed At Area Field Worker ID - RESORIAN [facility] Performing Organization Address City/State/Zipcode Ph one Number [facility] [address] [facility] [place] [address] * CT abdomen pelvis with IV contrast (11/06/2019 3:59 PM CDT) Only the most recent of 3 results within the time period is included. Specimen Narrative Performed At FINAL REPORT [employer] TECHNIQUE: CT of the abdomen and pelvis [...] Report Verified Date/Time: 0 16:13:27 Reading Location: [address] Body Reading Room Procedure Note Interface, [...] Report Verified Date/Time: 11/06/2019 16:13:27 Reading Location: [place] [id number] CT Body Reading Room Performing Organization Address City/State/[facility] Ph one Number [facility] * HIV-1 Antigen with HIV-1/2 Antibody (11/06/2019 1:58 PM CDT) HIV-1 Antigen with HIV Nonreactive Nonreactive [facility] 1&2 Antibody [facility] Specimen Blood Narrative Performed At Area Field Worker ID - [email or web address] [facility] Performing Organization Address City/State/[facility] Ph one Number [facility] [address] [place] [address] * STD Panel - CT/GC RNA (11/06/2019 1:47 PM CDT) C. trachomatis RNA, TMA NOT DETECTED [facility] N. gonorrhoeae RNA, TMA NOT DETECTED [facility] Comment: INCORPORATED REFERENCE RANGE:NOT DETECTED Methodology: Family Law Attorney Mediated Amplification (TMA) to detect RNA. The analytical performance characteristics of this assay, when used to test SurePath(TM) specimens have been determined by [employer] [facility]. The modifications have not been cleared or approved by the FDA. This assay has been validated pursuant to the CLIA regulations and is used for clinical purposes. For additional information, please refer to https://education.[employer]/faq/QCW501 (This link is being provided for informational/ educational purposes only.) Specimen Vaginal Swab Narrative Performed At Performing Lab [facility] [employer] [facility] [employer] [id number] [place] [phone] Ash Peres MD Performing Organization Address City/[facility] Cent[facility] Ph one Number [facility], [address] [place] [address] [facility]ORPORATED [facility] [id number] * Wet prep, genital (11/06/2019 1:47 PM CDT) WBC - wet prep Few white blood cells seen [facility] Clue cells - wet prep No clue cells seen [facility] Yeast - wet prep No budding yeast seen [facility] Trichomonas - wet prep No Trichomonas seen [facility] Bacteria - wet prep Moderate bacteria seen [facility] Specimen Genital Performing Organization Address City/[facility] Ph one Number [facility] [address] [place], [place] [phone] * PERMANENT LAB REPORT - SCAN (09/29/2019 3:33 PM FILM CRITIC) Narrative Performed At This result has an attachment that is n ot available. * US pelvis with endovag with doppler (09/24/2019 12:15 PM FILM CRITIC) Only the most recent of 2 results within the time period is included. Specimen Narrative Performed At FINAL REPORT [facility] PELVIC ULTRASOUND, WITH ENDOVAGINAL OFE DY AND [...] Report Verified Date/Time: 0 12:25:17 Reading Location: [facility] Radiology Readi ng Room Procedure Note Interface, External Ris In - 09/24/2019 12:27 PM FILM CRITIC FINAL REPORT PELVIC ULTRASOUND, WITH ENDOVAGINAL STUDY [...] Report Verified Date/Time: 09/24/2019 12:25:17 Reading Location: [facility] Radiology Reading Room Performing Organization Address City/State/Zipcode Ph one Number [facility] * Urinalysis w/Microscopic + Reflex to Culture (09/24/2019 9:56 AM FILM CRITIC) Color, UA Yellow [facility] Clarity, UA Clear [facility] Specific [place], UA 1.010 1.001 - 1.035 [facility] [...] LAND [facility] Specimen Urine Performing Organization Address City/[facility] Ph one Number [facility] [address] [place] [address] * Manual Differential (07/28/2019 7:09 PM FILM CRITIC) Total Counted [facility] WBC Morphology Normal [facility] RBC Morphology Normal [facility] Hypogranular Platelet Present [facility] Specimen Blood Performing Organization Address [facility] Ph one Number [facility] [address] [place] [address] after 05/12/2019 Insurance Payer Benefit Subscriber ID Type Phone Address Plan / Group MEDICAID MEDICAID xxxxxxxxx Medicaid [place] Advance Directives For more information, please contact: [facility] [address] [place] [address] Date Inactivated Comments Code Status Date Activated 03/21/2018 12:35 PM Full Code 03/18/2018 1:21 AM This code status was determined by: Patient
--- OUTSIDE RECORDS SUMMARY | 2020-05-12 15:13 | XMS REPORT | Clinical Summary ---
Author Author [facility] Organization [facility] Address Unknown Phone Unavailable Care Team Providers Care Process Safety Engineering Technologist Name Role Phone Kelin Urbano PAM [phone] Allergies Comments Active Allergy Reactions Severity Noted [...] Ayanna Dao RN 01/04/2020 Nurse Triage after 05/12/2019 Family History Medical History Relation [...] (>/= 19 yrs) Results Not on fileafter 05/12/2019 Insurance Type Payer Benefit Subscriber ID Effective Phone Address Plan / Dates Group [place] MEDICAID [id number] xxxxxxxxx 2018- [phone] [address] [facility] [facility] [id number] [place], [place] PROGRAM [id number] [facility] SELF-PAY SELF-PAY xxxxxx 2017-2 [address] [place] [address] Advance Directives Date Inactivated Comments Code Status Date Activated 07/02/2018 4:23 PM Full Code 06/17/2018 5:49 PM 05/05/2018 4:24 PM Full Code 04/29/2018 5:42 PM 10/20/2017 4:52 PM Full Code 10/15/2017 4:04 PM 11/01/2015 9:27 PM Full Code 10/26/2015 4:55 AM 03/29/2015 6:22 PM Full Code 03/28/2015 3:16 AM
--- OUTSIDE RECORDS SUMMARY | 2020-05-12 15:16 | XMS REPORT | Continuity of Care Document ---
Author Author [facility] t Organization [facility] Address [address] [place] [address] Phone Unavailable Care Team Providers Care Chief Jailer Name Role Phone NONSTAFF PCP Unavailable Wilfrid Malcolm MD Attphys Jil Downs MD Attphys WILFRID MALCOLM Attphys Unavailable Salty ROBLERO, Brian Attphys Ariel ROBLERO, Laurie Guzman Attphys [phone] Corbin Leung MD Attphys Santiago Sapp MD Attphys DR YANI MENDES Attphys Unavailable Robi ROBLERO, Monik Neri Attphys Luis HILARIO Attphys Unavailable Manan ARAUJO Attphys Unavailable JIL DOWNS Attphys Unavailable Oc ROBLERO, Monica Cevallos Attphys Sylwia PITT, Ayanna Attphys Unavailable Lemuel ROBLERO, Cherry Parmar Attphys [phone] CH[address]Y PARK Attphys Unavailable Steve WAGNER Attphys Unavailable MONIK JAIMES DARON Attphys Unavailable Michelle ROBLERO, Gregorio Marion Attphys Ko ANDRE, Denilson Attphys Ame ROBLERO, Harrison Attphys Alex ROBLERO, Nilay Dowell Attphys NILAY JOHNSON Attphys Unavailable Rajan ROBLERO, Prieto Garnett Attphys Harsh ROBLERO, Jessie Marlow Attphys [phone] Rupa ANDRE, HKaylee Aatif Attphys Annabelle ROBLERO, Kristel Pritchett Attphys Yosef ROBLERO, Mariano Lu Attphys SAI BLANCAS Attphys Unavailable APOLLO BROWN Attphys Unavailable BALA POPE Attphys Unavailable RORO ZEE Attphys Unavailable SHARONA JUSTIN Attphys Unavailable Savana Palacio Attphys Unavailable Savana Palacio Attphys Unavailable GEORGIE GARCIA Attphys Unavailable MILLER LEYVA Attphys Unavailable LIZZYBRITNI Wilson Attphys Unavailable TIMOTHY JAVIER Attphys Unavailable DR YANI MENDES Admphys Unavailable CHERRY PARK Admphys Unavailable AME, HARRISON Admphys Unavailable RootSavana Admphys Unavailable GRISEL MORGAN Admphys Unavailable RYAN PALACIO M.D., Savana DAVIS Admphys Unava ilable TIMOTHY JAVIER Admphys Unavailable Payers Payer Name Policy Type Policy Number Effective Date Expiration Date Addi goodrich [place] xxxxxxxxx [facility] [employer] Ppo [id number] 2019 00:00:0 0 [facility] [employer] [id number] 2019-PresentPPO [id number] 2019 00:00:00 [facility] ARRIOLA RULE [id number] 2019 00:00:00 [place] [facility] [id number].[address] [place] [id number] xxxxxxxxx 2018 00:00:00 [facility] [id number] [place] [address] xxxxxx 2017 00:00:00 2027 2 3:59:59 [facility] Problems Condition Name Condition Details Condition Category Status Onset Date Resolution Date Last Treatment Date Treating Clinician Comments Source Right arm cellulitis Right arm cellulitis Disease Active 00:00:00 [facility] Schizoaffective disorder Schizoaffective disorder Disease Acti ve 2019-04-28 00:00:[address] [facility] st Psychotic disorder Psychotic disorder Disease Active 2018-06-18 00:00:0 0 [facility] PTSD (post-traumatic stress disorder) PTSD (post-traumatic s tress disorder) Disease Active 2018-06-18 00:00:00 [facility] Marijuana abuse Marijuana abuse Disease Active 2018-06-18 00:00:00 [facility] Cellulitis of right leg Cellulitis of right leg Disease Active 2018-03-18 00:00:00 [facility] affected by growth restriction [facility]reg[facility] cy affected by growth restriction Disease Active 2017-12-04 00:00:00 Deric Amaral Suicidal ideation Suicidal ideation Disease Active 2017-12-04 00:00:00 Deric Amaral Polysubstance abuse Polysubstance abuse Disease Active 2017-12-04 00:00 :00 D[facility] Amaral Urinary tract infection affecting care of mother, ante Urinary tract infection affecting care of mother, antepartum Disease Active 2017-11-27 00:00:[address] Osteomyelitis of finger of right hand Osteomyelitis of finge r of right hand Disease Active 2016-11-04 00:00:00 Deric Amaral Cellulitis Cellulitis Disease Active 2016-10-28 00:00:00 Deric Amaral Deep postoperative wound infection Deep postoperative wound infe ction Disease Active 2016-10-28 00:00:00 [place] [facility] Osteomyelitis of finger Osteomyelitis of finger Disease Active 2016-10-28 00:00:[address] Bacterial skin infection Bacterial skin infection Disease Acti ve 2016-10-25 00:00:[address] Cellulitis of finger of right hand Cellulitis of finger of right hand Disease Active 2016-10-24 00:00:00 [place] [facility] Adjustment disorder with mixed anxiety and depressed m ood Adjustment disorder with mixed anxiety and depressed mood Disease Active 2015-10-25 00:00:00 [facility] Depression Depression Disease Active 2015-03-26 00:00:00 [facility] Polysubstance abuse Polysubstance abuse Disease Active 2015-03-13 00:00 :00 [facility] Other specified persistent mood disorders Other specif ied persistent mood disorders Disease Active 2015-01-10 00:00:00 [facility] Cocaine-induced mood disorder Cocaine-induced mood disorder Disease Active 2014-07-06 00:00:00 [facility] 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 Active 2014-07-06 00:00:00 [facility] Disorder, Substance Use Disorder, Substance Use Disease Active 2014-07-05 00:00:00 [facility] Depression, major, recurrent, severe with psychosis De pression, major, recurrent, severe with psychosis Disease Active 2012-12-30 00:00:00 [facility] Acute stress disorder Acute stress disorder Disease Active 201 09-07-14 00:00:00 [facility] Pelvic pain in female Pelvic pain in female Disease Active 201 08-10-05 00:00:00 [facility] Gastritis Problem Active [facility] Hb-SS disease with crisis Problem Active [facility] Drug ingestion Drug ingestion Disease Active [facility] Benzodiazepine abuse Benzodiazepine abuse Disease Active [facility] 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 Disease Active [facility] Cocaine use Cocaine use Disease Active [facility] Substance-induced disorder Substance-induced disorder Disease Active [facility] Chronic pain of right thumb Chronic pain of right thumb Disease Active [facility] Osteomyelitis Osteomyelitis Disease Active Ov erview: finger, [facility] Hyperthyroidism Hyperthyroidism Disease Active [facility] Fibroid, uterine Fibroid, uterine Disease Active [facility] Depression Depression Disease Active C [facility] Anxiety Anxiety Disease Active [facility] Allergies, Adverse Reactions, Alerts Allergy Name Allergy Type Status Severity Reaction(s) Onset Date Inacti ve Date Treating Clinician Comments Source Other Propensity to adverse reactions Active Othe r (See Comments) 2020-04-12 00:00:00 Pt reports she could not take an tipsychotics [facility] haloperidol DA Active U 2020-03-21 00:00:00 [facility] NSAIDS (Non-Steroidal Anti-Inflamma Allergy to substance Active M oderate 2019-12-30 00:00:00 [facility] Penicillin Allergy to substance Active Severe 2019-12-30 00:00:00 [facility] Tramadol Allergy to substance Active Moderate 2019-12-30 00:00:00 [facility] Ondansetron Allergy to substance Active Severe 2019-12-30 00:00:00 [facility] Phenazopyridine Allergy to substance Active Severe 2019-12-30 00:0 0:00 [facility] phenazopyridine HCl DA Active U 2019-06-22 00:00:00 [facility] ketorolac tromethamine DA Active U 2019-06-22 00:00:00 [facility] Penicillins DA Active U 2019-06-22 00:00:00 [facility] risperidone DA Active SV 2019-06-22 00:00:00 [facility] ondansetron DA Active U 2019-06-22 00:00:00 [facility] risperidone DA Active SV 2019-05-31 00:00:00 [facility] Risperidone Propensity to adverse reactions to drug Active Other (See Comments) 2019-05-25 00:00:00 Tongue swelling [place] [facility] Tomato Propensity to adverse reactions to drug Active Rash 2019-04-28 00:00:00 [facility] Ondansetron Hcl Propensity to adverse reactions to drug Active Rash 2019-04-06 00:00:00 [facility] Penicillins DA Active SV 2018-08-31 00:00:00 [facility] phenazopyridine DA Active SV 2018-08-31 00:00:00 [facility] ondansetron DA Active U 2017-12-31 00:00:00 [facility] Ondansetron Propensity to adverse reactions Active Rash 2017 00:00:00 [facility] Tram[facility]ol Propensity to adverse reactions to drug Active Rash 2017-12-07 00:00:00 [facility] phenazopyridine HCl DA Active U 2017-11-26 00:00:00 [facility] ketorolac tromethamine DA Active U 2017-11-26 00:00:00 [facility] Penicillins DA Active U 2017-11-26 00:00:00 [facility] Ketorolac Propensity to adverse reactions to drug Active 2016-12-17 00:00:00 [facility] Ketorolac Tromethamine Propensity to adverse reactions Active Rash 2016-12-07 00:00:00 [facility] Nsaids (Non-Steroidal Anti-Inflammatory Drug) Propensity to adverse reactions Active Anaphylaxis 2016-12-07 00:00:00 [facility] Nsaids (Non-Steroidal Anti-Inflammatory Drug) Propensi ty to adverse reactions to drug Active Anaphylaxis 2016-05-07 00:00:00 [facility] Penicillins Propensity to adverse reactions to drug Active Anaphylaxis 2016-04-09 00:00:00 [facility] Haloperidol Propensity to adverse reactions Active 2015 00:00:00 Dyston[facility] Tramadol Propensity to adverse reactions Active Hives 2015-12 00:00:00 [facility] Penicillins Propensity to adverse reactions to drug Active 2015-03-26 00:00:00 [facility] Penicillins Propensity to adverse reactions Active Maria Antonia phylaxis, Rash 2013-05-31 00:00:00 [facility] Ketorolac Propensity to adverse reactions Active Rash , Swelling 2013-05-31 00:00:00 [facility] Haloperidol Lactate Propensity to adverse reactions to drug Active 2013-01-05 00:00:00 Dystonia [facility] Tramadol Propensity to adverse reactions to drug Active Hives 2012-02-08 00:00:00 [facility] Penicillins Propensity to adverse reactions to drug Active Rash 2011-03-24 00:00:00 [facility] Ketorolac Tromethamine Propensity to adverse reactions to drug Acti ve Swelling 2011-03-14 00:00:00 [facility] Phenazopyridine Propensity to adverse reactions to drug Active Hives 2011-03-07 00:00:00 No latex allergy [facility] Phenazopyridine Propensity to adverse reactions Active Rash, Hives, Anaphylaxis 2011-01-25 00:00:00 No latex allergy [facility] Family History Family Member Diagnosis Comments Start Date Stop Date Source Natural brother No Known Problems Ho jaime [facility] Cousin No Known Problems [facility] Natural father No Known Problems Graciela feliz Rast[facility]arian Maternal aunt No Known Problems [facility] k[facility] Maternal grandfather No Known Problems D[facility] Maternal grandfather Diabetes [facility] Maternal grandfather Hypertension [facility] Maternal grandmother No Known Problems [facility] Maternal uncle No Known Problems Graciela Amaral Natural mother Cancer [facility] Natural mother Cancer [facility] Natural mother Renal Disease [facility] Natural mother Hypertension [facility] Natural mother Kidney disease [facility] Other No Known Problems [facility] Paternal aunt No Known Problems [facility] Paternal grandfather No Known Problems [facility] Paternal grandmother No Known Problems [facility] Paternal uncle No Known Problems Graciela feliz Rastafarian Natural sister No Known Problems Graciela feliz Rast[facility]arian Social History Social Habit Start Date Stop Date Quantity Comments Source Exposure to SARS-CoV-2 (event) Not sure Deric Amaral History of tobacco use Cigarette Smoker [facility] Sex Assigned At [facility] Cigarettes smoked current (pack per day) - Reported 00:00:00 2020-05-06 00:00:00 [facility] Tobacco use and exposure 2020-04-12 00:00:00 2020-04-12 00:00:00 Curr ent user Deric Amaral Cigarette pack-years 2018-06-17 00:00:00 2018-06-17 00:00:00 [facility] Alcohol intake 2018-06-17 00:00:00 2018-06-17 00:00:00 Current non-drinker of alcohol (finding) [facility] Alcohol Comment 2012-12-24 00:00:00 2012-12-24 00:00:00 denies [facility] Tobacco Comment 2011-04-23 00:00:00 2011-04-23 00:00:00 quit 1 month ago [facility] Smoking Status Start Date Stop Date Source Current every day smoker 2020-05-06 00:00:00 [facility] Current some day smoker 2020-04-12 00:00:00 [facility] Medications Ordered Medication Name Filled Medication Name Start Date Stop Da te Current Medication? Ordering Clinician Indication Dosage Frequency Signature (SIG) Comments Components Source hydroxyurea (DROXIA) 500 mg capsule 2020-05-06 17:27:57 Yes QD Take by mouth daily. [facility] Promethazine Hcl (Phenergan Supp*) 25 Mg SUPP Prometha zine Hcl (Phenergan Supp*) 25 Mg SUPP 2020-05-01 23:19:00 Yes 50 E very 6 Hours as needed for Nausea And Vomiting [facility] diazePAM (Valium) 2 MG tablet 2020-04-12 00:00:00 2020-04-15 23: 59:00 No 2mg Q12H Take 1 tablet (2 mg total) b y mouth every 12 (twelve) hours as needed for anxiety for up to 3 days. [facility] Acetaminophen/Codeine Phosphate (Tylenol # 3*) 1 Ea TA B Acetaminophen/Codeine Phosphate (Tylenol # 3*) 1 Ea TAB 2020-04-08 01:29:00 Yes 1 Every 4 Hours as needed for Moderate Pain (4-6) [facility] Prednisone Prednisone 2020-04-08 01:29:00 Yes 60 Daily as needed for Moderate Pain (4-6) [facility] Promethazine Hcl (Phenergan Supp*) 25 Mg SUPP Prometha zine Hcl (Phenergan Supp*) 25 Mg SUPP 2020-04-08 01:29:00 2020-05-01 00:00:00 No 50 Every 6 Hours as needed for Nausea And Vomiting [facility] ciprofloxacin (CIPRO) 500 MG tablet 2020-03-30 12:45:4 [...] (FLAGYL) 250 MG tablet 2020-03-27 22:41:48 Yes [id number] Take by mouth 3 (three) times a day. Unknown dose. Deric Amaral diazePAM (VALIUM) 5 MG tablet 2020-03-10 00:00:00 Yes 5mg Take 1 tablet (5 mg total) by mouth every 8 (eight) hours as needed for Anxiety. Max Daily Amount: 15 mg [facility] acetaminophen-codeine (TYLENOL #3) 300-30 mg per tablet 2020-03-08 00:00:00 2020-03-15 23:59:00 No 1{tbl} Take 1 tablet by mouth every 6 (six) hours as needed for Pain for up to 7 days. Max Daily Amount: 4 tablets [facility] promethazine (PHENERGAN) 25 MG tablet 2020-03-08 00:00 :00 2020-03-15 23:59:00 No 25mg Take 1 tablet ( 25 mg total) by mouth every 6 (six) hours as needed for Nausea for up to 7 days. [facility] Acetaminophen With Codeine (Tylenol With Codeine #3 Ta blet) 1 Each TABLET Acetaminophen With Codeine (Tylenol With Codeine #3 Tablet) 1 Each TABLET 2020-02-28 18:31:00 Yes 300 Every 6 Hour s as needed for Abdominal Pain [facility] LORazepam (ATIVAN) 0.5 MG tablet 2020-02-22 00:00:00 2020-02 23:59:00 No .5mg Take 1 tablet (0.5 m g total) by mouth 3 (three) times daily as needed for Anxiety for up to 10 days. Max Daily Amount: 1.5 mg [facility] tamsulosin (FLOMAX) 0.4 mg capsule 2020-01-12 00:00:00 [...] vomiting for up to 7 days. [facility] acetaminophen-codeine (TYLENOL #3) 300-30 mg per tablet 2019-12-25 00:00:00 2020-01-04 23:59:00 No 1{tbl} Take 1-2 tablets by mouth every 6 (six) hours as needed for Pain for up to 10 days. Max Daily Amount: 8 tablets [facility] nitrofurantoin, macrocrystal-monohydrate, (MACROBID) 100 MG capsule 2019-12-25 00:00:00 2019-12-30 23:59:00 No 100mg Q.5D Take 1 capsule (100 mg total) by mouth 2 (two) times daily for 5 days. I [facility] Acetaminophen With Codeine (Tylenol With Codeine #3 Ta blet) 1 Each TABLET Acetaminophen With Codeine (Tylenol With Codeine #3 Tablet) 1 Each TABLET 2019-12-01 12:34:00 Yes 300 Four Times Daily a s needed for Pain [facility] Promethazine Hcl (Phenadoz) 25 Mg SUPP.RECT Promethazi ne Hcl (Phenadoz) 25 Mg SUPP.RECT 2019-12-01 12:34:00 Yes 25 Th ree Times A Day as needed for Nausea, Vomiting [facility] Sulfamethoxazole/Trimethoprim (Bactrim Ds Tablet) 1 Ea ch TABLET Sulfamethoxazole/Trimethoprim (Bactrim Ds Tablet) 1 Each TABLET 2019-12-01 12:34:00 Yes 1 Twice A Day [facility] fluconazole (DIFLUCAN) 150 MG tablet 2019-11-06 00:00:00 Ye s Take 1 tab PO q 72 hours for 3 doses. [facility] acetaminophen-codeine (TYLENOL #3) 300-30 mg per tablet 2019-11-06 00:00:00 2019-11-16 23:59:00 No 1{tbl} Take 1-2 tablets by mouth every 6 (six) hours as needed for Pain for up to 10 days. Max Daily Amount: 8 tablets [facility] promethazine (PHENERGAN) 25 MG tablet 2019-11-06 00:00 :00 2019-11-13 23:59:00 No 25mg Take 1 tablet ( 25 mg total) by mouth every 6 (six) hours as needed for Nausea for up to 7 days. [facility] promethazine (PHENERGAN) 25 MG tablet 2019-09-09 00:00 [...] 12 doses. Max Daily Amount: 5 mg [facility] metroNIDAZOLE (FLAGYL) 500 MG tablet 2019-08-17 00:00: 00 2019-08-27 23:59:00 No 500mg Q.[id number] Take 1 tablet (500 mg total) by mouth 3 (three) times daily for 10 days. [facility] ciprofloxacin HCl (CIPRO) 500 MG tablet 00:00:00 2019-08-24 23:59:00 No 500mg Q.5D Take 1 tablet (500 mg total) by mouth 2 (two) times daily for 7 days. [facility] doxycycline (VIBRAMYCIN) 50 MG capsule 6 00:00:00 [...] 10 days. Max Daily Amount: 8 tablets [facility] diazepam (VALIUM) 10 MG tablet 2019-06-22 11:40:00 2019-06-22 00 :00:00 No 10mg Take 10 mg by mouth every 6 (six) hours as needed. [facility] ARIPiprazole (ABILIFY) 5 MG tablet 2019-06-22 11:40:00 04-14-19 00:00:00 No 10mg QD Take 10 mg by mouth daily . [facility] citalopram (CELEXA) 20 MG tablet 2019-06-22 11:40:00 2019-06 00:00:00 No 20mg QD Take 20 mg by mouth daily. [facility] zolpidem (AMBIEN) 10 mg tablet 2019-06-22 11:40:00 2019-06-22 00 :00:00 No 10mg Take 10 mg by mouth every night as needed . [facility] acetaminophen-codeine (TYLENOL WITH CODEINE #3) 300-30 mg pe r tablet 2019-06-20 00:00:00 2019-06-23 23:59:00 No acute pain 1{tbl} Q6H Take 1-2 tablets by mouth every 6 (six) hours as needed for moderate pain for up to 3 days .Acute Pain. Deric Amaral acetaminophen-codeine (TYLENOL #3) 300-30 mg per tablet 2019-06-20 00:00:00 2019-06-23 23:59:00 No 1{tbl} Take 1-2 tablets by mouth. [facility] citalopram (CeleXA) 20 MG tablet 2019-04-30 00:00:00 [...] 2019-04-30 00:00: 00 2019-05-30 23:59:00 No 300mg Q.[id number] Take 1 capsule (300 mg total) by [...] 2019-04-30 00:00 :00 2019-05-30 23:59:00 No 300mg Q.[id number] Take 1 capsule (300 mg total) by [...] days .insomnia associated with depression. Deric Amaral citalopram (CELEXA) 20 MG tablet 2019-01-21 00:00:00 2019-06 00:00:00 No 20mg QD Take 1 tablet (20 mg total) by mouth daily. [facility] citalopram (CELEXA) 20 mg tablet 2018-07-02 00:00:00 Yes PTSD (post- traumatic stress disorder) 20mg QD Take 1 tablet by mouth daily. [facility] citalopram (CELEXA) 20 MG tablet 2018-07-02 00:00:00 2019-07 00:00:00 No 20mg Take 20 mg by mouth. [facility] gabapentin (NEURONTIN) 400 mg capsule 2018-07-01 00:00:00 Yes PTSD (post- traumatic stress disorder) 400mg Take 1 capsule by mouth 3 times daily. [facility] nicotine polacrilex (NICORETTE) 2 mg Gum 2018-07-01 00:00:00 Yes PTSD (post-traumatic stress disorder) 2mg Place 1 Each inside cheek as needed for Other (nicotene). [facility] QUEtiapine (SEROQUEL) 100 mg tablet 2018-07-01 00:00:00 Yes PTSD (post- traumatic stress disorder) 100mg Take 1 tablet by mouth at b edtime nightly. [facility] QUEtiapine (SEROQUEL) 50 mg tablet 2018-07-01 00:00:00 Yes PTSD (post- traumatic stress disorder) 50mg Q.5D Take 1 tablet by mouth 2 times daily. [facility] QUEtiapine (SEROQUEL) 100 mg tablet 2018-05-04 00:00:00 Yes Polysubstance abuse 100mg Take 1 tablet by mouth at bedtime nightly for 1 4 days. [facility] gabapentin (NEURONTIN) 400 mg capsule 2016-04-20 00:00:00 Yes Polysubstance abuse 400mg Take 1 capsule by mouth 3 times da beverly for 7 days. [facility] gabapentin (NEURONTIN) 400 MG capsule 2016-04-20 00:00 :00 2019-07-28 00:00:00 No 400mg Take 400 mg by mouth. I [facility] norgestimate-ethinyl estradiol 0.18/0.215/0.25 mg-35 mcg (28 ) per tablet 2013-08-12 00:00:00 Yes 1{tbl} Take 1 tablet by m outh. [facility] Immunizations Ordered Immunization Name Filled Immunization Name Date Status Comments Source Rho (D) Immune Globulin 2016-11-02 00:00:00 Completed Deric Amaral Tdap 2016-08-18 00:00:00 Completed Aren Amaral Vital Signs Vital Name Observation Time Observation Value Comments Source Systolic blood pressure 2020-05-06 18:38:00 113 mm[Hg] [facility] Diastolic blood pressure 2020-05-06 18:38:00 65 mm[Hg] [facility] Heart rate 2020-05-06 18:38:00 91 /min [facility] Respiratory rate 2020-05-06 18:38:00 16 /min [facility] Oxygen saturation in Arterial blood by Pulse oximetry 2019-08 18:38:00 98 /min [facility] Body temperature 2020-05-06 17:23:00 36.56 Madai [facility] Body height 2020-05-06 17:23:00 165.1 cm [facility] Body weight Measured 2020-05-06 17:23:00 68.04 kg [facility] BMI 2020-05-06 17:23:00 24.96 kg/m2 [facility] Weight 2020-05-01 23:20:00 150 [lb_av] [facility] BMI (Body Mass Index) 2020-05-01 23:20:00 25.0 kg/m2 [facility] Systolic blood pressure 2020-04-12 17:39:00 155 mm[Hg] [place] [facility] Diastolic blood pressure 2020-04-12 17:39:00 98 mm[Hg] [place] [facility] Heart rate 2020-04-12 17:39:00 96 /min [facility] Respiratory rate 2020-04-12 17:39:00 18 /min Tiffanie kyle [facility] Oxygen saturation in Arterial blood by Pulse oximetry 04-12 17:39:00 99 /min [place] [facility] Body height 2020-04-12 13:05:00 165.1 cm [facility] Body weight 2020-04-12 13:05:00 65.772 kg [facility] BMI 2020-04-12 13:05:00 24.13 kg/m2 [facility] Body temperature 2020-04-12 13:04:58 35.78 Madai [place] [facility] Weight 2020-04-08 00:15:00 150 [lb_av] [facility] BMI (Body Mass Index) 2020-04-08 00:15:00 25.0 kg/m2 [facility] Body Temperature 2020-02-28 18:48:00 99.3 [degF] [facility] Weight 2020-02-28 15:42:00 150 [lb_av] [facility] BMI (Body Mass Index) 2020-02-28 15:42:00 25.0 kg/m2 [facility] Weight 2019-12-30 21:00:00 150 [lb_av] [facility] BMI (Body Mass Index) 2019-12-30 21:00:00 25.0 kg/m2 [facility] Procedures Procedure Date / Time Performed Performing Clinician Sour e COMPREHENSIVE METABOLIC PANEL 2020-05-06 18:14:00 Romel [facility] cheo [facility] LIPASE 2020-05-06 18:14:00 Romel [facility] URINALYSIS W/ MICROSCOPIC 2020-05-06 18:14:00 Romel [facility] SCREEN, URINE 2020-05-06 18:14:00 Luca Malcolm [facility] RETICULOCYTE COUNT 2020-05-06 18:14:00 Romel [facility] CBC W/PLT COUNT & AUTO DIFFERENTIAL 2020-05-06 18:14:00 Raf Malcolm [facility] COMPREHENSIVE METABOLIC PANEL 2020-04-12 14:45:00 Yann Navas am CREATINE KINASE, TOTAL (CPK) 2020-04-12 14:45:00 Perla Navas THYROID STIMULATING HORMONE 2020-04-12 14:45:00 Aly Navas T4, FREE 2020-04-12 14:45:00 Aly Navas ACETAMINOPHEN LEVEL 2020-04-12 14:45:00 Ayl Navas SALICYLATE LEVEL 2020-04-12 14:45:00 Aly Navas ESTIMATED GFR 2020-04-12 14:45:00 Aly Navas URINE CULTURE 2020-04-12 13:50:00 Aly Navas URINE DRUGS OF ABUSE SCREEN 2020-04-12 13:50:00 Aly Navas URINALYSIS SCREEN AND MICROSCOPY, WITH REFLEX TO CULTURE 202 13:50:00 Aly Navas URINE CULTURE 2020-03-30 12:43:00 Corbin Leung Ia thodist URINALYSIS SCREEN AND MICROSCOPY, WITH REFLEX [...] Leung LIPASE LEVEL 2020-03-30 10:10:00 Corbin Leung Ia thodist TROPONIN 2020-03-30 10:10:00 Corbin Leung thodist B NATRIURETIC PEPTIDE 2020-03-30 10:10:00 Corbin Leung HCG QUALITATIVE, SERUM SCREEN 2020-03-30 10:10:00 Jonathan Leung ESTIMATED GFR 2020-03-30 10:10:00 Corbin Leung Ia thodist CREATINE KINASE, TOTAL (CPK) 2020-03-30 10:10:00 Andrew Leung ECG ED PRELIMINARY INTERPRETATION 2020-03-30 09:48:38 Corbin Leung ECG 12-LEAD 2020-03-30 09:37:14 Corbin Leung Ia thodist COMPREHENSIVE METABOLIC PANEL 2020-03-08 13:29:00 Luca Malcolm [facility] LIPASE 2020-03-08 13:29:00 Luca Malcolm [facility] HCG, SERUM, QUALITATIVE 2020-03-08 13:29:00 Malcolm, Luca Cox [facility] CBC W/PLT COUNT & AUTO DIFFERENTIAL 2020-03-08 13:29:00 Raf Malcolm [facility] URINALYSIS W/ MICROSCOPIC 2020-03-08 12:42:00 Romel Luca Cox [facility] CT of abdomen and pelvis without contrast 2020-02-28 00:00:00 [facility] CT ABDOMEN/PELVIS WITHOUT IV CONTRAST 2020-01-14 19:17:00 Nathaly Downs [facility] BASIC METABOLIC PANEL (7) 2020-01-14 18:52:00 Nathaly Downs [facility] LIPASE 2020-01-14 18:52:00 Nathaly DownsSepideh [facility] CBC W/PLT COUNT & AUTO DIFFERENTIAL 2020-01-14 18:52:00 Alli Downs [facility] HEPATIC FUNCTION PANEL 2020-01-14 16:40:00 Himanshu Sepideh [facility] URINE CULTURE 2020-01-14 16:29:00 Nathaly DownsSepideh [facility] SCREEN, URINE 2020-01-14 16:29:00 Nathaly Downs [facility] RAPID DRUG SCREEN, URINE 2020-01-14 16:29:00 Nathaly Downs [facility] URINALYSIS W/ MICROSCOPIC 2020-01-14 16:29:00 Nathaly Downs [facility] URINE CULTURE 2020-01-12 22:30:00 Mart High URINALYSIS SCREEN AND MICROSCOPY, WITH REFLEX TO CULTURE 22:09:[address] ABDOMEN PELVIS WO CONTRAST 2020-01-12 21:45:57 Christi High OCCULT BLOOD, STOOL 2020-01-12 21:13:00 Mart High US PELVIC TRANSVAGINAL 2020-01-12 21:04:46 Mart High US PELVIC TRANSABDOMINAL 2020-01-12 21:04:22 High, Mart Amaral COMPREHENSIVE METABOLIC PANEL 2020-01-12 17:50:00 Christi High dewayne Amaral ESTIMATED GFR 2020-01-12 17:50:00 High Mart Amaral HC COMPLETE BLD COUNT W/AUTO DIFF 2020-01-12 17:49:00 Mart High LIPASE LEVEL 2020-01-12 17:49:00 Oc Mart Amaral HCG QUALITATIVE, SERUM SCREEN 2020-01-12 17:49:00 Oc Christi Menesesnguyen Amaral RAPID DRUG SCREEN, URINE 2020-01-01 09:06:00 Agata Park Ma [facility] BASIC METABOLIC PANEL (7) 2020-01-01 06:24:00 Agata Park [facility] TSH/FREE T4 IF INDICATED 2020-01-01 06:24:00 Agata Park Ma [facility] T4, FREE 2020-01-01 06:24:00 Agata Park [facility] CBC W/PLT COUNT & AUTO DIFFERENTIAL 2020-01-01 06:24:00 Agata Rodriges [facility] CT ABDOMEN/PELVIS WITHOUT IV CONTRAST 2019-12-25 04:54:00 HimanshuNathaly [facility] URINE CULTURE 2019-12-25 02:13:00 HimanshuNathalySepideh [facility] BASIC METABOLIC PANEL (7) 2019-12-25 02:13:00 Nathaly Downs [facility] HEPATIC FUNCTION PANEL 2019-12-25 02:13:00 HimanshuNathalySepideh [facility] LIPASE 2019-12-25 02:13:00 Nathaly Downs [facility] SCREEN, URINE 2019-12-25 02:13:00 StoneNathaly [facility] URINALYSIS W/ MICROSCOPIC 2019-12-25 02:13:00 Nathaly Downs [facility] LACTIC ACID, VENOUS 2019-12-25 02:10:00 Nathaly Downs [facility] CBC W/PLT COUNT & AUTO DIFFERENTIAL 2019-12-25 02:10:00 Alli Downs Jil [facility] CT ABDOMEN/PELVIS WITH IV CONTRAST 2019-11-06 15:59:00 Yan Downs Jil [facility] SCREEN, URINE 2019-11-06 15:11:00 Nathaly Downs [facility] URINALYSIS W/ MICROSCOPIC 2019-11-06 15:11:00 Nathaly Downs [facility] HIV-1 ANTIGEN WITH HIV-1/2 ANTIBODY 2019-11-06 13:58:00 Alli Downs [facility] WET PREP 2019-11-06 13:47:00 Nathaly Downs [facility] STD PANEL - CT/GC RNA 2019-11-06 13:47:00 Nathaly Downs [facility] LIPASE 2019-11-06 13:47:00 Daron Jaimes [facility] LACTIC ACID, VENOUS 2019-11-06 13:47:00 Daron Jaimes [facility] BASIC METABOLIC PANEL (7) 2019-11-06 13:47:00 Daron Jaimes [facility] HEPATIC FUNCTION PANEL 2019-11-06 13:47:00 Daron Jaimes [facility] CBC W/PLT COUNT & AUTO DIFFERENTIAL 2019-11-06 13:19:00 Daron Jaimes [facility] PERMANENT LAB REPORT - SCAN 2019-09-29 15:33:16 Linda Maciel [facility] US PELVIS WITH ENDOVAG WITH DOPPLER 2019-09-24 12:15:00 Daron Jaimes [facility] SCREEN, URINE 2019-09-24 09:56:00 Daron Jaimes [facility] URINALYSIS W/ REFLEX URINE CULTURE 2019-09-24 09:56:00 Daron Jaimes [facility] US PELVIC TRANSABDOMINAL 2019-09-09 19:35:00 Nirmal Gutierrez [...] WITH IV CONTRAST 2019-08-17 12:56:00 Daron Jaimes [facility] SCREEN, URINE 2019-08-17 12:33:00 Daron Jaimes [facility] BASIC METABOLIC PANEL (7) 2019-08-17 11:37:00 Daron Jaimes [facility] LACTIC ACID, VENOUS 2019-08-17 11:37:00 Daron Jaimes [facility] HEPATIC FUNCTION PANEL 2019-08-17 11:37:00 Daron Jaimes [facility] LIPASE 2019-08-17 11:37:00 Daron Jaimes [facility] CBC W/PLT COUNT & AUTO DIFFERENTIAL 2019-08-17 11:37:00 Daron Jaimes [facility] BASIC METABOLIC PANEL 2019-08-09 04:45:00 Winston Valero ESTIMATED GFR 2019-08-09 04:45:00 Winston Valero URINE DRUGS OF ABUSE SCREEN 2019-08-08 14:15:00 Melanie Baker stephanie Deric Amaral BASIC METABOLIC PANEL 2019-08-08 05:06:00 MaryluWinston Tony Amaral HC COMPLETE BLD COUNT W/AUTO [...] ANAEROBIC 2019-08-07 21:20:00 Ty, Nora Amaral US PELVIS WITH ENDOVAG WITH DOPPLER 2019-08-03 01:44:[address] uart Nilay [facility] CT ABDOMEN/PELVIS WITH IV CONTRAST 2019-08-02 23:01:00 St Alexu art Nilay [facility] COMPREHENSIVE METABOLIC PANEL 2019-08-02 22:21:00 Linda Johnsonrt E rich [facility] LIPASE 2019-08-02 22:21:00 Alex Delmer Nilay [facility] CBC W/PLT COUNT & AUTO DIFFERENTIAL 2019-08-02 21:07:00 St lindy Johnson [facility] SCREEN, URINE 2019-08-02 21:00:00 Delmer Johnson [facility] URINALYSIS W/ MICROSCOPIC 2019-08-02 21:00:00 Delmer Johnson [facility] COMPREHENSIVE METABOLIC PANEL 2019-07-28 19:09:00 Luca Malcolm [facility] LIPASE 2019-07-28 19:09:00 Luca Malcolm [facility] SCREEN, URINE 2019-07-28 19:09:00 Luca Malcolm [facility] URINALYSIS W/ MICROSCOPIC 2019-07-28 19:09:00 Romel [facility] CBC W/PLT COUNT & AUTO DIFFERENTIAL 2019-07-28 19:09:00 Raf Malcolm [facility] (MANUAL DIFFERENTIAL) 2019-07-28 19:09:00 Luca Malcolm [facility] US PELVIC TRANSVAGINAL 2019-06-21 00:11:35 Raeann Tatum US PELVIC TRANSABDOMINAL 2019-06-21 00:11:[address] ABDOMEN PELVIS W CONTRAST 2019-06-20 23:14:46 Raeann Tatum URINE CULTURE 2019-06-20 21:23:00 Raeann Tatum GRAM STAIN 2019-06-20 21:23:00 Raeann Tatum HC COMPLETE BLD COUNT W/AUTO DIFF 2019-06-20 20:58:00 Meenakshi Tatum COMPREHENSIVE METABOLIC PANEL 2019-06-20 20:58:00 Raeann Tatum LIPASE LEVEL 2019-06-20 20:58:00 Raeann Tatum ESTIMATED GFR 2019-06-20 20:58:00 Raeann Tatum URINALYSIS SCREEN AND MICROSCOPY, WITH REFLEX TO CULTURE 201 04-14-17 20:54:00 Raeann Tatum Leos [facility] HCG QUALITATIVE, URINE SCREEN 2019-06-20 20:54:00 Raeann aTtum Leos [facility]ast[facility] HC COMPLETE BLD COUNT W/AUTO DIFF 2019-06-08 07:25:00 Mart High Deric Amaral COMPREHENSIVE METABOLIC PANEL 2019-06-08 07:25:00 Christi High [facility] ESTIMATED GFR 2019-06-08 07:25:00 Mart High [place] [facility] URINE DRUGS OF ABUSE SCREEN 2019-06-08 07:02:00 Marly High Zairaaashishabdoulboni [facility]os [facility] HCG QUALITATIVE, SERUM SCREEN 2019-06-08 07:02:00 Christi High Zairagregory Deric Daveyist THYROID STIMULATING HORMONE 2019-06-08 07:02:00 Marly High Zairaaashishabdoulboni Deric Daveyist T4, FREE 2019-06-08 07:02:00 Mart High Leos Rast[facility] HC COMPLETE BLD COUNT W/AUTO DIFF 2019-05-27 14:45:00 Rupa, A donniejose Amaral COMPREHENSIVE METABOLIC PANEL 2019-05-27 14:45:00 Rosales Goode T4, FREE 2019-05-27 14:45:00 Rosales Goode Ia thodist THYROID STIMULATING HORMONE 2019-05-27 14:45:00 Rosales Goode CREATINE KINASE, TOTAL (CPK) 2019-05-27 14:45:00 Rosales Goode HCG QUALITATIVE, SERUM SCREEN 2019-05-27 14:45:00 Rosales Goode ACETAMINOPHEN LEVEL 2019-05-27 14:45:00 Rosales Goode n Rastafarian SALICYLATE LEVEL 2019-05-27 14:45:00 Rosales Goode M ethodist ESTIMATED GFR 2019-05-27 14:45:00 Rosales Goode Me thodist ECG 12-LEAD 2019-05-27 14:40:52 AlanisShreyas Deric Hernandez hodist ECG ED PRELIMINARY INTERPRETATION 2019-05-27 14:09:19 Carlito Goode HC COMPLETE BLD COUNT W/AUTO DIFF 2019-05-25 15:00:00 Luis Navas BASIC METABOLIC PANEL 2019-05-25 15:00:00 Aly Navas ESTIMATED GFR 2019-05-25 15:00:00 Aly Navas HC COMPLETE BLD COUNT W/AUTO DIFF 2019-05-24 15:08:00 Marcos Rincon COMPREHENSIVE METABOLIC PANEL 2019-05-24 15:08:00 Sole Rincon T4, FREE 2019-05-24 15:08:00 Sole Rincon ethodist THYROID STIMULATING HORMONE 2019-05-24 15:08:00 Sole Rincon HCG QUALITATIVE, SERUM SCREEN 2019-05-24 15:08:00 Sole Rincon ACETAMINOPHEN LEVEL 2019-05-24 15:08:00 Sole Rincon on Rastafarian SALICYLATE LEVEL 2019-05-24 15:08:00 Sole Rincon ESTIMATED GFR 2019-05-24 15:08:00 Sole Rincon ethodist URINE CULTURE 2019-05-24 14:24:00 Sole Rincon ethodist URINALYSIS SCREEN AND MICROSCOPY, WITH REFLEX TO CULTURE 201 04-13-21 14:24:00 Sole Rincon URINE DRUGS OF ABUSE SCREEN 2019-05-24 14:24:00 Sole Rincon Plan of Care Planned Activity Planned Date Details Comments Source Future Scheduled Test 2022-04-28 00:00:00 Lipid panel (proce dure) [code = 45387965] [facility] Future Scheduled Test 2020-05-04 00:00:00 IMM Influenza Seas onal May to October (>/= 19 yrs) [code = IMM Influenza Seasonal May to October (>/= 19 yrs)] [facility] Future Scheduled Test 2020-04-04 00:00:00 INFLUENZA VACCINE (#1) [code = INFLUENZA VACCINE (#1)] [facility] Scheduled Test 2020-03-04 00:00:00 INFLUENZA VACCINE [code = INFLUENZA VACCINE] [facility] Scheduled Test 2004-12-20 00:00:00 Screening for corby gnant neoplasm of cervix (procedure) [code = 995107871] [facility] Scheduled Test 2004-12-20 00:00:00 Screening for corby gnant neoplasm of cervix (procedure) [code = 204316753] [facility] Scheduled Test 2004-12-20 00:00:00 Screening for corby gnant neoplasm of cervix (procedure) [code = 901979906] [facility] Future Scheduled Test 1989-12-20 00:00:00 PNEUMOCOCCAL VACCI NE 2-64 YEARS AT RISK (1 of 1 - PPSV23) [code = PNEUMOCOCCAL VACCINE 2-64 YEARS AT RISK (1 of 1 - PPSV23)] [facility] Instructions Abdominal Pain - Adult [facility] Encounters Start Date/Time End Date/Time Encounter Type Admission Type [facility] Care Department Encounter ID Source 2018-06-17 17:18:00 Inpatient [facility] [id number] [facility] 2018-04-29 17:27:00 Inpatient [facility] [id number] [facility] 2020-05-01 23:15:00 2020-05-01 23:56:00 Departed Emergency Room [facility] [id number] [facility] 2020-04-12 00:00:00 2020-04-12 00:00:00 Emergency LYNMARGOT BRIAN [place] [address] [id number] [facility] 2020-04-08 00:30:00 2020-04-08 01:30:00 Departed Emergency Room [facility] [id number] [facility] 2020-03-30 00:00:00 2020-03-30 00:00:00 Emergency LEUNGJONATHAN [facility]AN [facility] [id number] [facility] 2020-03-27 00:00:00 2020-03-27 00:00:00 Emergency SPENCER SAPP [facility] [id number] [facility] 2020-03-25 08:21:00 2020-03-25 08:21:00 Emergency E [facility] [id number] [facility] 2020-03-17 20:51:00 2020-03-17 22:59:00 Emergency E FEDERICO MENDES [facility] [id number] [facility] 2020-02-28 14:46:00 2020-02-28 18:47:00 Departed Emergency Room 1 LOLY HILARIO [facility] [id number] [facility] 2020-02-20 09:17:00 2020-02-20 09:17:00 Emergency E [facility] 7600 [facility] 2020-01-20 15:14:01 2020-01-20 19:42:00 Emergency ER PATRICK ARAUJO [facility] Emergency [id number] MD Gee 2020-01-20 16:22:25 2020-01-20 16:57:31 Emergency EL ARSLAN [facility]RAUJO [facility] [id number] Gerard 2020-01-17 12:30:00 2020-01-17 12:30:00 Emergency E MHFB [id number] 2020-01-12 13:49:00 2020-01-12 13:49:00 Emergency E MHFB [facility]FB [id number] [facility] 2020-01-12 00:00:00 2020-01-12 00:00:00 Emergency TISHA HIGH [facility] 064 [id number] [facility] 2020-01-10 18:24:00 2020-01-10 18:24:00 Outpatient E [facility] MED [id number] [facility] 2019-12-30 20:40:00 2019-12-30 22:06:00 Departed Emergency Room [facility] [id number] [facility] 2019-12-01 10:56:00 2019-12-01 13:27:00 Departed Emergency Room 1 ED WAGNER [facility] [id number] [facility] 2019-11-30 15:08:00 2019-11-30 15:08:00 Emergency E MHBL MHBL [id number] [facility] 2019-09-22 12:14:00 2019-09-22 12:14:00 Emergency E MHSE MHSE [id number] [facility] 2019-09-14 14:36:00 2019-09-14 14:36:00 Emergency E MHBL MHBL [id number] [facility] 2019-09-09 00:00:00 2019-09-09 00:00:00 Emergency GEOGRE JONES [facility] [id number] [facility] 2019-08-12 21:23:00 2019-08-12 21:23:00 Emergency E MHFB MHFB [id number] [facility] 2019-08-07 00:00:00 2019-08-09 00:00:00 Inpatient [facility]AM [facility] [id number] [facility] 2019-08-04 10:42:00 2019-08-04 10:42:00 Emergency E MHBL MHBL [id number] [facility] 2019-06-20 00:00:00 2019-06-21 00:00:00 Emergency RAENAN TATUM [place] [address] [id number] [facility] 2019-06-08 00:00:00 2019-06-08 00:00:00 Emergency TISHA HIGH [place] [address] [id number] [facility] 2019-06-06 19:53:00 2019-06-06 19:53:00 Emergency E MHKM MHKM [id number] [facility] 2019-05-27 00:00:00 2019-05-29 00:00:00 Emergency [place] [address] [id number] [facility] 2019-05-05 00:27:00 2019-05-05 00:27:00 Emergency E MHKM MHKM [id number] [facility] 2019-04-10 20:33:00 2019-04-10 20:33:00 Emergency E MHFB MHFB [id number] FB 2019-04-06 00:00:00 2019-04-06 00:00:00 Emergency OMAR BROWN Silvestre [facility] 064 [id number] [facility] 2019-02-16 00:56:00 2019-02-16 00:56:00 Emergency E MHSW MHSW 7588 [facility] 2019-01-06 11:53:00 2019-01-06 11:53:[address] [facility] [id number] [facility] 2018-10-21 11:07:00 2018-10-21 11:07:[address] [facility] [id number] [facility] 2018-07-22 00:00:00 2018-07-22 00:00:00 Outpatient [facility] [id number] [facility] 2018-07-17 00:00:00 2018-07-17 00:00:00 Outpatient [facility] [id number] [facility] 2018-07-09 02:29:00 2018-07-15 11:59:00 Inpatient 1 Ryan Oviedo, Ryan [facility] PS[facility] [id number] [facility] 2018-06-29 15:12:59 2018-06-29 15:12:59 Outpatient [facility] [id number] [facility] 2018-06-23 08:00:36 2018-06-23 08:00:36 Outpatient [facility] [id number] [facility] 2018-06-18 12:41:11 2018-06-18 12:41:11 Outpatient [facility] [id number] [facility] 2018-06-17 13:53:30 2018-06-17 13:53:30 Emergency [facility] [id number] [facility] 2018-06-17 10:57:15 2018-06-17 10:57:15 Emergency [facility] [id number] [facility] 2018-06-16 21:30:44 2018-06-16 21:30:44 Emergency [facility] [id number] [facility] 2018-05-19 00:00:00 2018-05-19 00:00:00 Outpatient [facility] [id number] [facility] 2018-05-15 00:00:00 2018-05-15 00:00:00 Outpatient [facility] [id number] [facility] 2018-05-05 11:09:57 2018-05-05 11:09:57 Outpatient [facility] [id number] [facility] 2018-04-26 19:41:32 2018-04-26 19:41:32 Emergency [facility] [id number] [facility] 2016-12-12 16:24:00 2016-12-12 16:24:00 Emergency E [facility] [id number] [facility] Results Test Description Test Time Test Comments Results Result Comments Source - CT ABD PELVIS W/CONT 2020-05-10 18:41:00 Makenna ent Name: KENNETH PLATT Unit No: [id number] EXAMS: CPT CODE: [id number] CT ABD PELVIS W/CONT 87025 CT abdomen and pelvis with contrast dated 05/10/2020 INDICATION: Generalized abdominal pain. Nausea and vomiting. COMPARISON: CT abdomen dated 07/07/2018. TECHNIQUE: A CT of the abdomen pelvis was performed using helical images from the thoracic outlet through the pubic symphysis with subsequent sagittal and coronal reconstruction. IV CONTRAST: 125 cc of Isovue-300 GI CONTRAST: None. CT imaging performed at this location utilizes radiation dose optimization techniques which include one or more of the followin) Automated exposure control; 2) Adjustment of mA and/or kV; 3) Use of iterative reconstructive technique. CT radiation dose DLP (mGy-cm): 235. FINDINGS: SOLID ORGANS: No acute CT abnormalities of the liver, spleen, pancreas, adrenal glands or kidneys are detected. There is no CT evidence of acute renal collecting system obstruction or calcified renal collecting system stone. BILIARY: The gallbladder is normally distended. No significant biliary ductal dilatation is identified. BOWEL: Bowel assessment is limited by the absence of bowel contrast. No gross abnormalities of the stomach or duodenum are identified. No small bowel dilatation is present to suggest obstruction. The appendix is identified and is not acutely inflamed. The colon demonstrates no evidence of diverticular disease or inflammatory wall thickening. PERITONEUM: There is no evidence of free intraperitoneal air. Trace free intraperitoneal fluid is identified in the pelvis. RETROPERITONEUM: The abdominal aorta demonstrates no evidence of aneurysm or dissection. There is no evidence of retroperitoneal mass or adenopathy. The [facility] NAME: KENNETH PLATT Radiology Department PHYS: Amelia Ledesma MD [address] : 1985 AGE: 34 SEX: F [place], [place] [address] LOC: TREMYANE PHONE #: [phone] EXAM DATE: 05/10/2020 STATUS: REG ER FAX #: [phone] RAD NO: Page 1 Signed Report 1 Patient Name: KENNETH PLATT Unit No: [id number] EXAMS: CPT CODE: [id number] CT ABD PELVIS W/CONT 14197 <Continued> PELVIS: The right ovary contains an approximately 2.4 cm cyst. The left ovary contains an approximately 2.8 cm cyst. The bladder wall appears thickened for the degree of bladder distention. LOWER CHEST: The lung bases appear clear of acute disease. ADDITIONAL FINDINGS: None. IMPRESSION: 1. The bladder wall appears thickened for the degree of bladder distention, raising concern for cystitis. Correlation with urinalysis is recommended. No additional acute CT abnormalities of the abdomen or pelvis are detected. SL: 131 at 1841 Reported and signed by: Rashawn Ho MD CC: Amelia Ji MD Technologist: Sasha Mcclain RT, CT CTDI: 7.77 DLP: 235.89 Trnscrbd D/ (1840) Radha [facility] NAME: KENNETH PLATT Radiology Department PHYS: Amelia Ledesma MD [address] : 1985 AGE: 34 SEX: F [place] [address] LOC: DougieERS PHONE #: [phone] EXAM DATE: 05/10/2020 STATUS: REG ER FAX #: [phone] RAD NO: Page 2 Signed Report 1 Patient Name: KENNETH PLATT Unit No: [id number] EXAMS: CPT CODE: [id number] CT ABD PELVIS W/CONT 19338 <Continued> Orig Print D/T: S: 05/10/2020 (184) [facility] NAME: KENNETH PLATT REIMIKIE Radiology Department PHYS: Amelia Ledesma MD [address] : 1985 AGE: 34 SEX: F [place] [address] LOC: DougieERS PHONE #: [phone] EXAM DATE: 05/10/2020 STATUS: REG ER FAX #: [phone] RAD NO: Page 3 Signed Report 1 UA RFLX MICR CULT IF INDICATED 2020-05-10 17:27:00 Test Item UA COLOR (test code = COLU) YELLOW YELLOW UA APPEARANCE (test code = APPU) CLEAR CLEAR UA GLUCOSE DIPSTICK (test code = DGLUU) NEGATIVE NEG UA BILIRUBIN DIPSTICK (test code = BILU) NEGATIVE NEG UA KETONE DIPSTICK (test code = KETU) NEGATIVE NEG UA SPECIFIC GRAVITY (test code = SGU) 1.019 1.001-1.035 N UA BLOOD DIPSTICK (test code = KIRTI) NEG NEG UA PH DIPSTICK (test code = GABRIEL) 6.0 5-9 UA PROTEIN DIPSTICK (test code = PROU) NEGATIVE NEG UA UROBILINIOGEN DIPSTICK (test code = URO) NEGATIVE mg/dL NEG UA NITRITE DIPSTICK (test code = BLU) NEG NEG UA LEUKOCYTE ESTERASE DIPSTICK (test code = LEUU) NEG NEG UA WBC (test code = WBCU) 0-2 #/hpf NONE SEEN UA RBC (test code = RBCU) 0-2 #/hpf NONE SEEN UA EPITHELIAL CELLS (test code = EPIU) RARE #/HPF RARE-FEW UA MUCUS (test code = MUCU) RARE NONE SEEN Indication for culture: Suprapubic PainSpecimen Description: CLEAN CATCHUR HCG [id number] 17:27:00* Test Item Value Reference Range Interpretation Comments UR HCG QUAL (test code = HCGQLU) NEGATIVE 1. Very dilute urine specimens, as indicated by a lowspecific gravity, may not contain sales support representative levels ofhCG. 2. False negative results may occur when the levels of hCGare below the sensitivity level of the test. If is still suspected, a first morningurine specimen should be collected 48 hours later andtested. Indication for culture: Suprapubic PainSpecimen Description: CLEAN CATCHUA RFLX MICR CULT IF [id number] 17:25:00* Test Item Value Reference Range Interpretation Comments UA COLOR (test code = COLU) YELLOW UA APPEARANCE (test code = APPU) CLEAR UA GLUCOSE DIPSTICK (test code = DGLUU) NEGATIVE UA BILIRUBIN DIPSTICK (test code = BILU) NEGATIVE UA KETONE DIPSTICK (test code = KETU) NEGATIVE UA SPECIFIC GRAVITY (test code = SGU) 1.001-1.035 UA BLOOD DIPSTICK (test code = KIRTI) NEGATIVE UA PH DIPSTICK (test code = GABRIEL) 5-9 UA PROTEIN DIPSTICK (test code = PROU) NEGATIVE UA UROBILINIOGEN DIPSTICK (test code = URO) mg/dL NEG UA NITRITE DIPSTICK (test code = BLU) NEGATIVE UA LEUKOCYTE ESTERASE DIPSTICK (test code = LEUU) NEG UA WBC (test code = WBCU) #/hpf NONE SEEN UA EPITHELIAL CELLS (test code = EPIU) #/HPF RARE-FEW Indication for culture: Suprapubic PainSpecimen Description: CLEAN CATCHUR HCG [id number] 17:25:00* Test Item Value Reference Range Interpretation Comments UR HCG QUAL (test code = HCGQLU) NEGATIVE 1. Very dilute urine specimens, as indicated by a lowspecific gravity, may not contain sales support representative levels ofhCG. 2. False negative results may occur when the levels of hCGare below the sensitivity level of the test. If is still suspected, a first morningurine specimen should be collected 48 hours later andtested. Indication for culture: Suprapubic PainSpecimen Description: CLEAN CATCH CHEMISTRY 7 [id number] 17:09:00* Test Item Value Reference Range Interpretation Comments SODIUM (test code = NA) 136 mEq/L 135-145 N POTASSIUM (test code = K) 3.3 mEq/L 3.5-5.0 L CHLORIDE (test code = CL) 104 mEq/L 100-115 N CARBON DIOXIDE (test code = CO2) 27 mEq/L 22-31 N ANION GAP (test code = GAP) 8.30 10-20 L GLUCOSE (test code = GLU) 88 mg/dL 65-110 N BLOOD UREA NITROGEN (test code = BUN) 7 mg/dL 7-18 N GLOMERULAR FILTRATION RATE (test code = GFR) 106 ml/min >60 N CREATININE (test code = CREAT) 0.7 mg/dL 0.5-1.0 N CALCIUM (test code = CA) 8.9 mg/dL 8.4-10.2 N LIVER [id number] 17:09:00* Test Item Value Reference Range Interpretation Comments TOTAL PROTEIN (test code = PROT) 7.4 gm/dL 6.3-8.2 N ALBUMIN (test code = ALB) 3.6 gm/dL 3.4-4.8 N BILIRUBIN TOTAL (test code = BILT) 0.3 mg/dL 0.2-1.0 N BILIRUBIN DIRECT (test code = BILD) 0.1 mg/dL <0.2 N SGOT/AST (test code = AST) 14 units/L 15-37 L SGPT/ALT (test code = ALT) 15 units/L 12-78 N ALKALINE PHOSPHATASE TOTAL (test code = ALKP) 54 units/L 46-116 N [id number] 17:09:00* Test Item Value Reference Range Interpretation Comments LIPASE (test code = LIP) 50 units/L 73-393 L CBC W/AUTO [id number] 17:01:00* Test Item Value Reference Range Interpretation Comments WHITE BLOOD CELL (test code = WBC) 5.1 K/mm3 6.6-12.1 L RED BLOOD CELL (test code = RBC) 3.66 M/mm3 3.45-5.01 N HEMOGLOBIN (test code = HGB) 11.8 g/dL 10.7-13.9 N HEMATOCRIT (test code = HCT) 35.0 % 32.1-42.1 N MEAN CELL VOLUME (test code = MCV) 96 fL 84.1-94.8 H MEAN CELL HGB (test code = MCH) 32.2 pg 27-35 N MEAN CELL HGB CONCETRATION (test code = MCHC) 33.7 gm/dL 32.2-34. 1 N RED CELL DISTRIBUTION WIDTH (test code = RDW) 11.9 % 12.4-16. 5 L PLATELET COUNT (test code = PLT) 243 K/mm3 133-385 N MEAN PLATELET VOLUME (test code = MPV) 10.8 fl 9.1-12.7 N NEUTROPHIL % (test code = NT%) 53.9 % 56.5-79.4 L LYMPHOCYTE % (test code = LY%) 33.5 % 14.3-34.3 N MONOCYTE % (test code = MO%) 9.4 % 5.1-10.4 N EOSINOPHIL % (test code = EO%) 2.4 % 0.1-3.0 N BASOPHIL % (test code = BA%) 0.6 % 0.1-1.0 N NEUTROPHIL # (test code = NT#) 2.8 K/mm3 LYMPHOCYTE # (test code = LY#) 1.7 K/mm3 MONOCYTE # (test code = MO#) 0.5 K/mm3 EOSINOPHIL # (test code = EO#) 0.12 K/mm3 BASOPHIL # (test code = BA#) 0.0 K/mm3 RBC MORPHOLOGY REQUIRED (test code = RBCM) NORMAL NORMAL PLATELET MORPHOLOGY REQUIRED (test code = PLTMR) NORMAL GIGI L [id number] 18:47:00* Test Item Value Reference Range Interpretation Comments Lipase (test code = 3040-3) 13 U/L 6-51 RADHA (test code = RADHA) Slab Polisher ID - ADMIN Lab Interpretation (test code = 44359-1) [facility] 18:47:[facility]* Test Item Value Reference Range Interpretation Comments LIPASE (BEAKER) (test code = 749) 13 U/L 6-51 Slab Polisher ID - ADMINComprehensive metabolic [id number] 18:46:00* Test Item Value Reference Range Interpretation Comments Protein, Total (test code = 2885-2) 7.7 6.0- 8.5 gm/dL Specimen markedly hemolyzed Albumin (test code = 56260-6) 4.1 g/dL 3.5-5 Specimen markedly hemolyzed Alkaline Phosphatase (test code = 6768-6) 45 U/L 30-115 Total Bilirubin (test code = 1975-2) 0.2 mg/dL 0.1-1.2 Specimen markedly hemolyzed Sodium (test code = 2951-2) 138 meq/L 135-148 Potassium (test code = 2823-3) 4.8 meq/L 3.6-5.5 Specimen markedly hemolyzed Chloride (test code = 5-0) 105 meq/L 98-106 CO2 (test code = 2027-9) 20 meq/L 20-29 BUN (test code = 3094-0) 9 mg/dL 10-26 L Creatinine (test code = 2160-0) 0.67 mg/dL 0.5-1.2 Specimen markedly hemolyzed Glucose (test code = 2345-7) 90 mg/dL 70-110 Calcium (test code = 24920-1) 9.1 mg/dL 8.5-10.5 AST (test code = 1920-8) 30 U/L 5-40 Spe cimen markedly hemolyzed ALT (test code = 1742-6) 9 U/L 5-50 Spe cimen markedly hemolyzed EGFR (test code = 60173-0) 121 mL/min/1.73 sq m ESTIMATED GFR IS NOT ACCURATE CREATININE CLEARANCE IN PREDICTING GLOMERULAR FILTRATION RATE. ESTIMATED GFR IS NOT APPLICABLE FOR DIALYSIS PATIENTS. RADHA (test code = RADHA) Slab Polisher ID - ADMIN Lab Interpretation (test code = 27331-7) Abnormal [facility] [id number] 18:46:00* Test Item Value Reference Range Interpretation Comments TOTAL PROTEIN (BEAKER) (test code = 770) 7.7 gm/dL 6.0-8.5 Specimen markedly hemolyzed ALBUMIN (BEAKER) (test code = 1145) 4.1 g/dL 3.5-5.0 Specimen markedly hemolyzed ALKALINE PHOSPHATASE (BEAKER) (test code = 346) 45 U/L 30-115 BILIRUBIN TOTAL (BEAKER) (test code = 377) 0.2 mg/dL 0.1-1.2 Specimen markedly hemolyzed SODIUM (BEAKER) (test code = 381) 138 meq/L 135-148 POTASSIUM (BEAKER) (test code = 379) 4.8 meq/L 3.6-5.5 Specimen markedly hemolyzed CHLORIDE (BEAKER) (test code = 382) 105 meq/L 98-106 CO2 (BEAKER) (test code = 355) 20 meq/L 20-29 BLOOD UREA NITROGEN (BEAKER) (test code = 354) 9 mg/dL 10-26 L CREATININE (BEAKER) (test code = 358) 0.67 mg/dL 0.50-1.20 Specimen markedly hemolyzed GLUCOSE RANDOM (BEAKER) (test code = 652) 90 mg/dL 70-110 CALCIUM (BEAKER) (test code = 697) 9.1 mg/dL 8.5-10.5 AST (SGOT) (BEAKER) (test code = 353) 30 U/L 5-40 Specimen markedly hemolyzed ALT (SGPT) (BEAKER) (test code = 347) 9 U/L 5-50 Specimen markedly hemolyzed EGFR (BEAKER) (test code = 1092) 121 mL/min/1.73 sq m ESTIMATED GFR IS NOT ACCURATE CREATININE CLEARANCE IN PREDICTING GLOMERULAR FILTRATION RATE. ESTIMATED GFR IS NOT APPLICABLE FOR DIALYSIS PATIENTS. Slab Polisher ID - ADMINUrinalysis w/Qhglowdgicr0653-73-38 18:39:00* Test Item Value Reference Range Interpretation Comments Color, UA (test code = 5778-6) Yellow Clarity, UA (test code = 5767-9) Clear Specific [place], UA (test code = 5811-5) 1.025 1.001-1.035 pH, UA (test code = 5803-2) 5.5 5.0-8.0 Protein, UA (test code = 45417-9) Negative Negative Glucose, UA (test code = 365) Negative Negative Ketones, UA (test code = 2514-8) Negative Negative Bilirubin, UA (test code = 69828-0) Negative Negative Blood, UA (test code = 34895-9) Negative Negative Nitrite, UA (test code = 5802-4) Negative Negative Leukocytes, UA (test code = 5799-2) Trace Negative A Urobilinogen, UA (test code = 06349-1) 0.2 mg/dL 0.2-1 Bacteria, UA (test code = 96978-2) Few RBC, UA (test code = 799-7) None Seen /HPF WBC, UA (test code = 80190-8) 5-10 /HPF SQUAMOUS EPITHELIAL (test code = 55242-5) 5-10 /HPF RENAL EPITHELIAL (test code = 89783-5) <5 /HPF Specimen Source (test code = 2795) Lab Interpretation (test code = 01306-1) [facility] kblaz4942-29-91 18:39:00* Test Item Value Reference Range Interpretation Comments Preg Test, Ur (test code = 2112-1) [facility] [id number] 18:39:00* Test Item Value Reference Range Interpretation Comments [...] (BEAKER) (test code = 1663) 5-10 /HPF RENAL EPITHELIAL MANUAL (BEAKER) (test code = 1662) <5 /HPF SOURCE(BEAKER) (test code = 2795) SCREEN, [id number] 18:39:00* Test Item Value Reference Range Interpretation Comments TEST URINE (BEAKER) (test code = 583) Negative Bodqwvankcadp9433-63-04 18:27:00* Test Item Value Reference Range Interpretation Comments % Retic (test code = 24166-2) 1.1 % 0.4-2.9 Lab Interpretation (test code = 60157-3) Normal [facility] with platelet count + automated [id number] 18:27:00* Test Item Value Reference Range Interpretation Comments WBC (test code = 6690-2) 4.8 4.0- 10.0 K/L RBC (test code = 789-8) 3.90 4.00- 5.00 M/L L MCHC (test code = 786-4) 33.4 32.0- 36.0 GM/DL Hematocrit (test code = 4544-3) 37.4 % 36-46 MCV (test code = 787-2) 95.9 fL 82-99 MCH (test code = 785-6) 32.1 pg 27-33 RDW (test code = 788-0) 12.5 % 12-15 Platelets (test code = 777-3) 268 150- 430 K/CU MM MPV (test code = 68547-8) 11.3 fL 6-11.5 nRBC (test code = 413) 0 0- 0 /100 WBC % Neutros (test code = 429) 61 % % Lymphs (test code = 430) 30 % % Monos (test code = 431) 6 % % Eos (test code = 432) 2 % % Baso (test code = 437) 0 % # Neutros (test code = 670) 2.90 1.80- 8.00 K/L # Lymphs (test code = 414) 1.45 1.48- 4.50 K/L L # Monos (test code = 415) 0.29 0.00- 1.30 K/L # Eos (test code = 416) 0.11 0.00- 0.50 K/L # Baso (test code = 417) 0.02 0.00- 0.20 K/L Immature Granulocytes-Relative (test code = 2801) 0 % 0-0 Lab Interpretation (test code = 96416-2) [facility]normal [facility]IC[facility] [id number] 18:27:00* Test Item Value Reference Range Interpretation Comments RETICULOCYTE COUNT PCT (BEAKER) (test code = 575) 1.1 % 0.4- 2.9 CBC W/PLT COUNT & AUTO [id number] 18:27:00* Test Item Value Reference Range Interpretation Comments WHITE BLOOD CELL COUNT (BEAKER) (test code = 775) 4.8 K/ L 4.0- 10.0 RED BLOOD CELL COUNT (BEAKER) (test code = 761) 3.90 M/ L 4.00-5 .00 L HEMOGLOBIN (BEAKER) (test code = 410) 12.5 GM/DL 12.0-15.5 HEMATOCRIT (BEAKER) (test code = 411) 37.4 % 36.0-46.0 MEAN CORPUSCULAR VOLUME (BEAKER) (test code = 753) 95.9 fL 82. 0-99.0 MEAN CORPUSCULAR HEMOGLOBIN (BEAKER) (test code = 751) 32.1 pg 27.0-33.0 MEAN CORPUSCULAR HEMOGLOBIN CONC (BEAKER) (test code = 752) 33.4 GM/DL 32.0-36.0 RED CELL DISTRIBUTION WIDTH (BEAKER) (test code = 412) 12.5 % 12.0-15.0 PLATELET COUNT (BEAKER) (test code = 756) 268 K/CU MM 150-430 MEAN PLATELET VOLUME (BEAKER) (test code = 754) 11.3 fL 6.0-11 .5 NUCLEATED RED BLOOD CELLS (BEAKER) (test code = 413) 0 /100 WBC 0 -0 NEUTROPHILS RELATIVE PERCENT (BEAKER) (test code = 429) 61 % LYMPHOCYTES RELATIVE PERCENT (BEAKER) (test code = 430) 30 % MONOCYTES RELATIVE PERCENT (BEAKER) (test code = 431) 6 % EOSINOPHILS RELATIVE PERCENT (BEAKER) (test code = 432) 2 % BASOPHILS RELATIVE PERCENT (BEAKER) (test code = 437) 0 % NEUTROPHILS ABSOLUTE COUNT (BEAKER) (test code = 670) 2.90 K/ L 1.80-8.00 LYMPHOCYTES ABSOLUTE COUNT (BEAKER) (test code = 414) 1.45 K/ L 1.48-4.50 L MONOCYTES ABSOLUTE COUNT (BEAKER) (test code = 415) 0.29 K/ L 0. 00-1.30 EOSINOPHILS ABSOLUTE COUNT (BEAKER) (test code = 416) 0.11 K/ L 0.00-0.50 BASOPHILS ABSOLUTE COUNT (BEAKER) (test code = 417) 0.02 K/ L 0. 00-0.20 IMMATURE GRANULOCYTES-RELATIVE PERCENT (BEAKER) (test code = 2801) 0 % 0-0 T4, [id number] 15:48:49* Test Item Value Reference Range Interpretation Comments T4, free (test code = 3024-7) 0.8 ng/dL 0.8-1.8 [place] MethodistThyroid stimulating smhyacq7791-19-07 15:48:49* Test Item Value Reference Range Interpretation Comments TSH (test code = 3016-3) 0.28 0.55- 4.78 uIU/mL L Lab Interpretation (test code = 57476-1) Abnormal [place] MethodistSalicylate dcnub0526-81-21 15:47:35* Test Item Value Reference Range Interpretation Comments Salicylate (test code = 4024-6) <0.4 mg/dL Therapeutic Range: 5 - 30 mg/dL [place] MethodistAcetaminophen fhbch1702-66-31 15:47:35* Test Item Value Reference Range Interpretation Comments Acetaminophen level (test code = 3298-7) <15.9 ug/mL Therapeutic 10- 30 ug/mL Possible Toxicity 150-200 ug/mL Probable Toxicity >200 ug/mL [place] MethodistComprehensive metabolic xagpa8704-92-57 15:37:55* Test Item Value Reference Range Interpretation Comments Sodium (test code = 2951-2) 136 135- 148 mEq/L Potassium (test code = 2823-3) 5.3 3.5- 5.0 mEq/L H Specimen hemolyzed Chloride (test code = 5-0) 100 99- 109 mEq/L CO2 (test code = 2027-9) 22 24- 31 mEq/L L Anion gap (test code = 35917-3) 14@ANIO 7- 15 mEq/L BUN (test code = 3094-0) 9 mg/dL 8-24 Creatinine (test code = 2160-0) 0.51 mg/dL 0.5-0.9 Glucose (test code = 2345-7) 83 mg/dL 65-99 Calcium (test code = 94068-0) 9.3 mg/dL 8.6-10.6 Protein (test code = 2885-2) 7.2 g/dL 6.3-8.2 Albumin (test code = 1751-7) 3.7 g/dL 3.5-5 A/G ratio (test code = 1759-0) 1.1 0.7-3.8 Alkaline phosphatase (test code = 6768-6) 44 U/L 30-115 AST (test code = 1920-8) 40 U/L 15-46 ALT (test code = 1742-6) 11 U/L 10-55 Total bilirubin (test code = 1974-) <0.3 0.2-1.2 Lab Interpretation (test code = 87365-2) Abnormal [place] MethodistAlcohol level, efayv9257-36-00 15:37:55* Test Item Value Reference Range Interpretation Comments Alcohol percent (test code = 5643-2) None Detected % Normal None DetectedLegal Intoxication in [place] 80 mg/dL (0.08%) - Whole BloodToxic Concentration 200 mg/dL (0.2%)Potentially Fatal 350 - 500 mg/dL (0.35 - 0.5%) [facility] MethodistCreatine kinase, total (CPK)2020-04-12 15:37:55* Test Item Value Reference Range Interpretation Comments Creatine kinase (test code = 2157-6) 90 U/L 35-200 Deric MethodistEstimated [id number] 15:37:55* Test Item Value Reference Range Interpretation Comments Estimated GFR (test code = 5488) >=90 mL/min/1.73 m2 Catergory Units InterpretationG1 >=90 Normal or highG2 60-89 Mildly loariasjxS8s 45-59 Mildly to moderately knxcmuwxhM1l 30-44 Moderately to severely decreasedG4 15-29 Severely decreasedG5 <15 Kidney failureThe eGFR was calculated using the Chronic Kidney Disease Epidemiology Collaboration (CKD-EPI) equation. Interpretation is based on recommendations of the National Kidney Foundation-Kidney Disease Outcomes Quality Initiative (NKF-KDOQI) published in 2014. Deric Joaquin drugs of abuse piybtp3834-46-61 14:36:41* Test Item Value Reference Range Interpretation Comments Amphetamine screen, urine (test code = 3349-8) Negative Barbiturate screen, urine (test code = 3377-9) Negative Benzodiazepine screen, urine (test code = 3390-2) Negative Cocaine screen, urine (test code = 3397-7) Negative Methadone metabolite (EDDP), urine (test code = 44891-4) Negative Opiates screen, urine (test code = 3879-4) Positive A Oxycodone screen, urine (test code = 26284-0) Negative Phencyclidine screen, urine (test code = 3936-2) Negative Tricyclic screen, urine (test code = 81294-8) Negative Cannabinoid screen, urine (test code = [...] is required. Lab Interpretation (test code = 70524-7) Abnormal Deric Joaquin hnlszoe0511-80-42 14:27:16* Test Item Value Reference Range Interpretation Comments Urine culture (test code = 7206861) SEE COMMENT Bacteriuria screen negative. Deric MethodistUrinalysis screen and microscopy, with reflex to culture 2020-04-12 14:27:15* Test Item Value Reference Range Interpretation Comments Specimen site (test code = 6978974) Clean catch Color, UA (test code = 5778-6) Yellow Appearance, UA (test code = 5767-9) Sl Cloudy Specific gravity, UA (test code = 5811-5) 1.011 1.001-1.035 pH, UA (test code = 5803-2) 8.0 5.0-8.5 Protein, UA (test code = 96271-8) Negative Negative Glucose, UA (test code = 03259-6) Negative Negative Ketones, UA (test code = 2514-8) Negative Negative Bilirubin, UA (test code = 5770-3) Negative Negative Blood, UA (test code = 5794-3) Negative Negative Nitrite, UA (test code = 5802-4) Negative Negative Urobilinogen, UA (test code = 45598-4) <2.0 <2.0 Leukocyte esterase, UA (test code = 5799-2) Negative Negative Epithelial cells, UA (test code = 5787-7) >20 /HPF WBC, UA (test code = 5821-4) 2 0- 4 /HPF RBC, UA (test code = 73159-3) None seen 0- 5 /HPF Bacteria, UA (test code = 39878-5) Few None seen Yeast, UA (test code = 86182-4) None seen Yeast with pseudohyphae, UA (test code = 63798-3) None seen Deric Worthington 12 oapp7346-54-29 16:45:53* Test Item Value Reference Range Interpretation Comments Ventricular rate (test code = 253) 116 Atrial rate (test code = 255) 116 MD interval (test code = 266) 132 QRSD [...] wave inversion now evident in Inferior leads- Deric MethodisthCG qualitative, urine ffrhfd9121-17-39 12:33:54* Test Item Value Reference Range Interpretation Comments hCG qualitative, urine (test code = 2106-3) Negative Sensitivity of HCG test: 25 mIU/ml Leos MethodistCT Abdomen Pelvis W Smaepoll2645-40-67 12:05:31Hm Interface, Radiology Results 03/30/2020 12:08 PM [...] perfor ation, ascites, fluid collection or hydronephrosis. [id number] [place] MethodistXR Abdomen Acute Inc Gunwv2194-81-13 11:11:54Hm Interface, Radiology Results 03/30/2020 11:15 AM [...] within the asc ending colon may indicate constipation.[id number] MethodistLipase level 2020-03-30 10:55:20* Test Item Value Reference Range Interpretation Comments Lipase (test code = 3040-3) 20 U/L 13-60 [facility] iiexxbf6778-04-36 10:54:06* Test Item Value Reference Range Interpretation Comments BNP (test code = 71656-5) 14 pg/mL 0-100 [place] ZfeixrutiTpxuwjpd2615-01-29 10:53:45* Test Item Value Reference Range Interpretation Comments Troponin (test code = 92726-7) <0.006 0-0.04 In patients suspected of having [...] decreased by less than 0.020 ng/mL Deric DaveyistProthrombin time with THG9546-53-60 10:44:39* Test Item Value Reference Range Interpretation Comments Prothrombin time (test code = 5902-2) 13.0 11.5- 14.5 sec INR (test code = 49234-6) 1.0 Th e International Normalized Ratio (INR) is a therapeutic monitoring tool for patients who are stable on oral anticoagulant therapy. An INR of 2.0-3.0 is suggested for deep vein thrombosis/pulmonary embolism. Deric AmaralhCG qualitative, serum uodkgx3864-34-74 10:41:03* Test Item Value Reference Range Interpretation Comments hCG qualitative, serum (test code = 2118-8) Negative Sensitivity of HCG test: 25 mIU/mL Deric DaveyistCBC with platelet and rgenhojkuqon0615-03-90 10:37:16* Test Item Value Reference Range Interpretation Comments WBC (test code = 65951-7) 4.2 4.5- 11.0 k/uL L RBC (test code = 78020-5) 3.96 m/uL 4.2-5.5 L HGB (test code = 718-7) 12.9 g/dL 12-16 HCT (test code = 4544-3) 37.9 % 37-47 MCV (test code = 787-2) 95.7 fL 82-100 MCH (test code = 785-6) 32.6 pg 27-34 MCHC (test code = 786-4) 34.0 g/dL 31-37 RDW - SD (test code = 28355-2) 42.2 fL 37-55 MPV (test code = 57947-0) 10.7 fL 6.9-11 Platelet count (test code = 07080-6) 263 K/uL 150-400 Nucleated RBC (test code = 60524-1) 0.00 /100 WBC Neutrophils (test code = 60400-7) 58.1 % 39-69 Lymphocytes (test code = 20662-6) 30.8 % 25-45 Monocytes (test code = 45817-9) 6.5 % 0-10 Eosinophils (test code = 63805-0) 3.4 % 0-5 Basophils (test code = 42512-9) 1.0 % 0-1 Immature granulocytes (test code = 61374-3) 0.2 % 0-1 Lab Interpretation (test code = 54169-5) Abnormal [place] MethodistECG ED Preliminary Interpretation - Not an Iasku4664-25-34 09:48:38* Test Item Value Reference Range Interpretation Comments RADHA (test code = RADHA) Corbin Leung MD 12:48 [facility] Preliminary Interpretation - Not an OrderPerformed by: Corbin Leung MDAuthorized by: Corbin Leung MD ECG reviewed by ED Physician in the a bsence of a siebel consultant: yes Interpretation: Interpretation: abnormal Rate: ECG rate: 116 ECG rate assessment: tachycardic Rhythm: Rhythm: sinus tachycardia Ectopy: Ectopy: none QRS: QRS axis: Normal QRS intervals: NormalConduction: Conduction: normal ST segments: ST segments: Non- specificT waves: T waves: non-specific Comments: Sinus tachycardia, nonspecific ST-T changes Lab Interpretation (test code = 54397-7) Abnormal [place] MethodistURINALYSIS JFQJHBTF4819-11-78 17:52:00* Test Item Value Reference Range Interpretation [...] Chk SOURCE OF URINE: CLEAN CATCHUR HCG [id number] 17:52:00* Test Item Value Reference Range Interpretation Comments UR HCG QUAL (test code = HCGQLU) NEGATIVE NEGATIVE SOURCE OF URINE: CLEAN CATCHDRUGS OF ABUSE SCREEN [id number] 17:52:00* Test Item Value Reference Range Interpretation Comments UR COCAINE (test code = COCAU) NEGATIVE NEGATIVE Cut off Value: 300 ng/mL UR CANNABINOIDS (THC) (test code = CANU) NEGATIVE NEGATIVE Cut off Value: 50 ng/mL UR AMPHETAMINE (test code = AMPHU) POSITIVE NEGATIVE [facility]: 1000 ng/mL UR BARBITURATE [...] 25 ng/mL SOURCE OF URINE: CLEAN CATCHURN BJJLAIVNLMW2684-80-14 17:52:00* Test Item Value Reference Range Interpretation Comments URN AMPHETAMINE (test code = AMPHETURN) POSITIVE NEGATIVE A RESULTS CALLED TO ZACKERY ChamberlainREAD BACK & CONFIRMED? ADEEL ConstantinoLAB.IR1 03/22/20 6046 RESULTS SENT FOR CONFIRMATION OF SCREEN RESULTSSEE OTHER SPECIMEN FOR CONFIRMATION RESULTS These results are to be used only for medical (ie,treatment) purposes. Unconfirmed screening results must notbe used for non-medical purposes (eg, employment testing)DETECTION CUT OFF: 500 ng/mLCut off Value: 1000 ng/mL SOURCE OF URINE: CLEAN CATCHURINALYSIS YTLJMLQX4988-03-46 17:47:00* Test Item Value Reference Range Interpretation [...] Chk SOURCE OF URINE: CLEAN CATCHUR HCG [id number] 17:47:00* Test Item Value Reference Range Interpretation Comments UR HCG QUAL (test code = HCGQLU) NEGATIVE NEGATIVE SOURCE OF URINE: CLEAN CATCHDRUGS OF ABUSE SCREEN [id number] 17:47:00* Test Item Value Reference Range Interpretation [...] 25 ng/mL SOURCE OF URINE: CLEAN CATCHURN TNKLBIATCXV5884-04-26 17:47:00* Test Item Value Reference Range Interpretation Comments URN AMPHETAMINE (test code = AMPHETURN) POSITIVE NEGATIVE A RESULTS CALLED TO ZACKERY ChamberlainREAD BACK & CONFIRMED? ADEEL MANCINI.IR1 03/22/20 2511 RESULTS SENT FOR CONFIRMATION OF SCREEN RESULTSSEE OTHER SPECIMEN FOR CONFIRMATION RESULTS These results are to be used only for medical (ie,treatment) purposes. Unconfirmed screening results must notbe used for non-medical purposes (eg, employment testing)DETECTION CUT OFF: 500 ng/mLCut off Value: 1000 ng/mL SOURCE OF URINE: CLEAN CATCHURN NILWGQTRQSG0181-53-15 17:46:00* Test Item Value Reference Range Interpretation Comments URN AMPHETAMINE (test code = AMPHETURN) POSITIVE NEGATIVE A RESULTS CALLED TO ZACKERY ChamberlainREAD BACK & CONFIRMED? ADEEL MANCINI.IR1 03/22/20 1746 RESULTS SENT FOR CONFIRMATION OF SCREEN RESULTSSEE OTHER SPECIMEN FOR CONFIRMATION RESULTS These results are to be used only for medical (ie,treatment) purposes. Unconfirmed screening results must notbe used for non-medical purposes (eg, employment testing)DETECTION CUT OFF: 500 ng/mL SOURCE OF URINE: CLEAN CATCHRETICULOCYTE [id number] 13:34:00* Test Item Value Reference Range Interpretation Comments RETICULOCYTE COUNT (test code = RETICT) 1.4 % 0.5-1.5 N COMPREHENSIVE METABOLIC [id number] 13:20:00* Test Item Value Reference Range Interpretation [...] code = CK) 76 UNITS/L 30-135 N [id number] 13:20:00* Test Item Value Reference Range Interpretation Comments LIPASE (test code = LIP) 76 UNITS/L 23-300 N COMPREHENSIVE METABOLIC [id number] 13:19:00* Test Item Value Reference Range Interpretation [...] (CK) (test code = CK) UNITS/L 30-135 [id number] 13:19:00* Test Item Value Reference Range Interpretation Comments LIPASE (test code = LIP) UNITS/L 23-300 COMPREHENSIVE METABOLIC [id number] 13:18:00* Test Item Value Reference Range Interpretation [...] (CK) (test code = CK) UNITS/L 30-135 [id number] 13:18:00* Test Item Value Reference Range Interpretation Comments LIPASE (test code = LIP) UNITS/L 23-300 COMPREHENSIVE METABOLIC [id number] 13:17:00* Test Item Value Reference Range Interpretation [...] (CK) (test code = CK) UNITS/L 30-135 [id number] 13:17:00* Test Item Value Reference Range Interpretation Comments LIPASE (test code = LIP) UNITS/L 23-300 CBC W/AUTO [id number] 13:14:00* Test Item Value Reference Range Interpretation [...] = NRBC#) 0.00 K/mm3 0.0-0.1 N URINALYSIS [id number] 12:52:00* Test Item Value Reference Range Interpretation [...] Chk SOURCE OF URINE: CLEAN CATCHUR HCG [id number] 12:52:00* Test Item Value Reference Range Interpretation Comments UR HCG QUAL (test code = HCGQLU) NEGATIVE NEGATIVE SOURCE OF URINE: CLEAN CATCHDRUGS OF ABUSE SCREEN [id number] 12:52:00* Test Item Value Reference Range Interpretation [...] 25 ng/mL SOURCE OF URINE: CLEAN CATCHURINALYSIS [id number] 12:37:00* Test Item Value Reference Range Interpretation [...] Chk SOURCE OF URINE: CLEAN CATCHUR HCG [id number] 12:37:00* Test Item Value Reference Range Interpretation Comments UR HCG QUAL (test code = HCGQLU) NEGATIVE NEGATIVE SOURCE OF URINE: CLEAN CATCHDRUGS OF ABUSE SCREEN [id number] 12:37:00* Test Item Value Reference Range Interpretation [...] PHENCU) NEGATIVE SOURCE OF URINE: CLEAN CATCHURINALYSIS [id number] 12:28:00* Test Item Value Reference Range Interpretation [...] Chk SOURCE OF URINE: CLEAN CATCHUR HCG [id number] 12:28:00* Test Item Value Reference Range Interpretation Comments UR HCG QUAL (test code = HCGQLU) NEGATIVE NEGATIVE SOURCE OF URINE: CLEAN CATCHDRUGS OF ABUSE SCREEN [id number] 12:28:00* Test Item Value Reference Range Interpretation [...] PHENCU) NEGATIVE SOURCE OF URINE: CLEAN CATCHURINALYSIS [id number] 12:25:00* Test Item Value Reference Range Interpretation [...] Chk SOURCE OF URINE: CLEAN CATCHUR HCG [id number] 12:25:00* Test Item Value Reference Range Interpretation Comments UR HCG QUAL (test code = HCGQLU) NEGATIVE SOURCE OF URINE: CLEAN CATCHDRUGS OF ABUSE SCREEN [id number] 12:25:00* Test Item Value Reference Range Interpretation [...] RETC) 0.70 % 0.26-1.60 CBC (INCLUDES AUTOMATED DIFFERENTIAL)*[id number] 22:24:00* Test Item Value Reference Range Interpretation [...] 200 ng/mL Opiates 2000 ng/mL URINE MONOCLONAL *WW*2020-03-17 22:07:00* Test Item Value Reference Range Interpretation Comments PREG UR (test code = PGU) NEGATIVE NEGATIVE URINALYSIS *WW*2020-03-17 22:05:00* Test Item Value Reference Range Interpretation [...] code = WAUAM) NO NO hCG, serum, onnyomgigcb9957-04-52 14:06:00* Test Item Value Reference Range Interpretation Comments Preg Test, Serum (test code = 2110-5) Negative [facility], [id number] 14:06:00* Test Item Value Reference Range Interpretation Comments TEST SERUM (BEAKER) (test code = 584) Negative COMPREHENSIVE METABOLIC [id number] 14:03:00* Test Item Value Reference Range Interpretation [...] GFR IS NOT APPLICABLE FOR DIALYSIS PATIENTS. Slab Polisher ID - [id number] 14:02:00* Test Item Value Reference Range Interpretation Comments LIPASE (BEAKER) (test code = 749) 18 U/L 6-51 Slab Polisher ID - [id number] W/PLT COUNT & AUTO [id number] 13:45:00* Test Item Value Reference Range Interpretation [...] (test code = 2801) 0 % 0-0 URINALYSIS W/ UOKHXUKUHGY7047-17-41 13:13:00* Test Item Value Reference Range Interpretation [...] SOURCE(BEAKER) (test code = 2795) CT ABDOMEN/PELVIS [id number] 17:53:00 [place] [address] Patient Name: KENNETH PLATT MR #: [id number] : 1985 Age/Sex: 34/F Req #: [id number] Adm Physician: Ordered by: LOLY HILARIO MD Report #: [id number] Location: [facility] Room/Bed: Procedure: [id number] CT/CT ABDOMEN/ PELVIS WO Exam Date: 02/28/20 [...] 02/28/201802 COPY TO: LOLY HILARIO MD URINALYSIS [id number] 13:11:00* Test Item Value Reference Range Interpretation [...] Chk SOURCE OF URINE: CLEAN CATCHUR HCG [id number] 13:11:00* Test Item Value Reference Range Interpretation Comments UR HCG QUAL (test code = HCGQLU) NEGATIVE NEGATIVE SOURCE OF URINE: CLEAN CATCHURINALYSIS [id number] 13:07:00* Test Item Value Reference Range Interpretation [...] Chk SOURCE OF URINE: CLEAN CATCHUR HCG [id number] 13:07:00* Test Item Value Reference Range Interpretation Comments UR HCG QUAL (test code = HCGQLU) NEGATIVE SOURCE OF URINE: CLEAN CATCHURINE [id number] 10:03:00* Test Item Value Reference Range Interpretation [...] the FDA and the [employer] (CAP) are more stringent than those [...] = PGU) NEGATIVE NEGATIVE CBC (INCLUDES AUTOMATED DIFFERENTIAL)*[id number] 22:16:00* Test Item Value Reference Range Interpretation [...] MORPH (test code = WRBCMOR) NORMAL URINALYSIS [id number] 11:29:00* Test Item Value Reference Range Interpretation [...] MUCU) 4+ /LPF NONE SEEN UR HCG [id number] 11:29:00* Test Item Value Reference Range Interpretation Comments UR HCG QUAL (test code = HCGQLU) NEGATIVE NEGATIVE BASIC METABOLIC [id number] 11:21:00* Test Item Value Reference Range Interpretation [...] CA) 9.4 mg/dL 8.5-10.5 N LIVER FUNCTION [id number] 11:21:00* Test Item Value Reference Range Interpretation [...] code = ALKP) 37 U/L 42-121 L [id number] 11:21:00* Test Item Value Reference Range Interpretation Comments LIPASE (test code = LIP) 24 IU/L 22-51 N BASIC METABOLIC [id number] 11:17:00* Test Item Value Reference Range Interpretation [...] CA) 9.4 mg/dL 8.5-10.5 N LIVER FUNCTION [id number] 11:17:00* Test Item Value Reference Range Interpretation [...] PHOSPHATASE (test code = ALKP) U/L 42-121 [id number] 11:17:00* Test Item Value Reference Range Interpretation Comments LIPASE (test code = LIP) 24 IU/L 22-51 N CBC W/AUTO [id number] 11:03:00* Test Item Value Reference Range Interpretation [...] BA#) 0.1 x10 3/uL 0.0-0.1 N Urine gjxgxoq3966-08-22 08:42:00* Test Item Value Reference Range Interpretation Comments Result (test code = 6463-4) >100,000 col/mL skin vane [facility] W/PLT COUNT & AUTO [id number] 19:49:00* Test Item Value Reference Range Interpretation [...] (test code = 2801) 0 % 0-0 [id number] 19:41:00* Test Item Value Reference Range Interpretation Comments LIPASE (BEAKER) (test code = 749) 24 U/L 6-51 Slab Polisher ID - [id number] metabolic panel (Na, K+, Cl, CO2, Glu, [...] 70 mg/dL 70-110 Calcium (test code = 03964-6) 9.4 mg/dL 8.5-10.5 EGFR (test code = 05374-2) 117 mL/min/1.73 sq m ESTIMATED GFR IS NOT ACCURATE CREATININE CLEARANCE IN PREDICTING GLOMERULAR FILTRATION RATE. ESTIMATED GFR IS NOT APPLICABLE FOR DIALYSIS PATIENTS. RADHA (test code = RADHA) Slab Polisher ID - [id number] Lab Interpretation (test code = 49230-4) Abnormal [facility] METABOLIC [id number] 19:40:00* Test Item Value Reference Range Interpretation [...] GFR IS NOT APPLICABLE FOR DIALYSIS PATIENTS. Slab Polisher ID - [id number], IOYNYGR6195-92-43 19:36:00Reason for exam:-> DYSURIAReason for exam:->one month [...] ied Date/Time: 01/14/2020 19:36:56 abdomen pelvis without wuoszrsy9086-47-26 19:36:00Interface, External Ris In - 01/14/2020 7:39 [...] Leigh Pichardo MDReport Verified Date/Time: 01/14/2020 19:36:56 [facility] [id number] 17:01:00* Test Item Value Reference Range Interpretation Comments Protein, Total (test code = 2885-2) 8.8 6.0- 8.5 gm/dL H Albumin (test code = 05778-2) 4.4 g/dL 3.5-5 Total Bilirubin (test code = 1975-2) 0.2 mg/dL 0.1-1.2 Bilirubin, Direct (test code = 1967-7) <0.1 0-0.4 Alkaline Phosphatase (test code = 6768-6) 36 U/L 30-115 AST (test code = 1920-8) 35 U/L 5-40 ALT (test code = 1742-6) 11 U/L 5-50 RADHA (test code = RADHA) Slab Polisher ID - MANUELITO Lab Interpretation (test code = 32543-6) Abnormal [facility] Center[facility]ATIC FUNCTION [id number] 17:01:00* Test Item Value Reference Range Interpretation [...] (test code = 347) 11 U/L 5-50 Slab Polisher ID - JUSTINRapid drug screen, stqha9475-80-76 16:52:00* Test Item Value Reference Range Interpretation Comments Barbiturate Screen (test code = 09150-7) Negative Negative Benzodiazepine Screen (test code = 58502-7) Positive Negative A Cocaine (Metab.) Screen (test code = 3397-7) Positive Negative A Methadone Screen (test code = 43651-6) Negative Negative Opiate Screen (test code = 16135-1) Positive Negative A Cannabinoid Screen (test code = 79335-7) Negative Negative Amph/Methamph Screen (test code = 46735-0) Positive Negative A Phencyclidine Screen (test code = 08077-2) Negative Negative pH, UA (test code = 5803-2) 7.0 5.0-8.0 RADHA (test code = RADHA) DRUG CUTOFF C ONC.Cocaine 300 ng/mL Cannabinoid 50 ng/mLBenzodiazepine 200 ng/mLBarbiturate 200 ng/mLPhencyclidine 25 ng/mLOpiate 300 ng/mLMethadone 300 ng/mLAmphetamine/ 1000 ng/mL Methamphetamine This assay provides an unconfirmed qualitative test result for the clinical management of patients in emergency situations. Chain of custody not maintained. Some gtcz-gjf-nnvpuik medications, as well as adulterants, may cause inaccurate results. Clinical correlation should be applied. A more comprehensive drug screen or confirmation of a detected drug may be performed upon request.Slab Polisher ID - JUSTINOperator ID - JUSTINOperator ID - JUSTINOperator ID - JUSTINOperator ID - JUSTINOperator ID - JUSTINOperator ID - JUSTINOperator ID - MANUELITO Lab Interpretation (test code = 00756-2) Abnormal [facility], [id number] 16:52:00* Test Item Value Reference Range Interpretation [...] situations. Chain of custody not maintained. Some rybe-tey-zysktzz me dications, as well as adulterants, may cause inaccurate results. Clinical correl ation should be applied. A more comprehensive drug screen or confirmation of a d etected drug may be performed upon request.Slab Polisher ID - JUSTINOperator ID - JUS TINOperator ID - JUSTINOperator ID - JUSTINOperator ID - JUSTINOperator ID - JUS TINOperator ID - JUSTINOperator ID - JUSTINURINALYSIS W/ ISFFYDRRFTS4888-14-50 16:50:00* Test Item Value Reference Range Interpretation [...] 20-50 /HPF SOURCE(BEAKER) (test code = 2795) SCREEN, [id number] 16:38:00* Test Item Value Reference Range Interpretation Comments TEST URINE (BEAKER) (test code = 583) Negative CT Abdomen Pelvis Wo Vxgwgzsg3159-51-21 21:52:29Hm Interface, Radiology Results - 01/12/2020 9:55 PM CDTCT ABDOMEN PELVIS WO [...] er or outlet obstruction. No hydronephrosis or hydroureter.[facility]-[id number] MethodistOccult blood, hibij4568-90-53 21:23:11* Test Item Value Reference Range Interpretation Comments Occult blood, stool (test code = 2334-1) Negative for occult blood. Specimen InformationSpecimen Source: StoolSpecimen Site: Nonpreserved [place] MethodistUS Pelvic Tsjrwdddwzst7828-26-39 21:07:06 Interface, Radiology Results 01/12/2020 9:10 PM [...] unremar kable transabdominal and endovaginal pelvic ultrasound examination.[facility]-[id number] [facility] MethodistUS Pelvic Sytfauyrvpualt1400-52-25 21:07:06 Interface, Radiology Results 01/12/2020 9:10 PM [...] unremar kable transabdominal and endovaginal pelvic ultrasound examination.[facility]-[id number] [facility] MethodistRAPID DRUG SCREEN, [id number] 10:06:00* Test Item Value Reference Range Interpretation [...] situations. Chain of custody not maintained. Some aaal-ksl-sxefntu me dications, as well as adulterants, may cause inaccurate results. Clinical correl ation should be applied. A more comprehensive drug screen or confirmation of a d etected drug may be performed upon request.Slab Polisher ID - [id number] ID - zdx x62Krxhvjlm ID - htyv92Wpazhpbd ID - plpx85Byxeyfpx ID - dcyf66Xdqogxtb ID - zdx s01Ivycdake ID - khhu53Alnkeefc ID - krxq86P9, vama1299-25-39 07:49:00* Test Item Value Reference Range Interpretation Comments Free T4 (test code = 3024-7) 0.79 ng/dL 0.9-1.8 L RADHA (test code = RADHA) Slab Polisher ID - [id number] Lab Interpretation (test code = 45720-8) Abnormal [facility] CenterT4, XUHF2364-12-71 07:49:00* Test Item Value Reference Range Interpretation Comments FREE T4 (BEAKER) (test code = 655) 0.79 ng/dL 0.90-1.80 L Slab Polisher ID - [id number]/Free T4 If Scxrqjgji9814-65-93 07:18:00* Test Item Value Reference Range Interpretation Comments TSH (test code = 06265-5) 0.330 0.350- 5.500 uIU/mL L RADHA (test code = RADHA) Slab Polisher ID - [id number] Lab Interpretation (test code = 04370-7) Abnormal [facility] CenterTSH/FREE T4 IF UYGYDLQVD6764-30-62 07:18:00* Test Item Value Reference Range Interpretation Comments THYROID STIMULATING HORMONE (BEAKER) (test code = 772) 0.330 uIU /mL 0.350-5.500 L Slab Polisher ID - [id number] METABOLIC [id number] 06:47:00* Test Item Value Reference Range Interpretation [...] GFR IS NOT APPLICABLE FOR DIALYSIS PATIENTS. Slab Polisher ID - [id number] W/PLT COUNT & AUTO YNEVNKIIWBTF2236-21-03 06:36:00* Test Item Value Reference Range Interpretation [...] code = 2801) 0 % 0-0 CT, [id number] 05:16:00Reason for exam:->ABDOMINAL PAINSuprapubic pain that radiates [...] pleural effusion or pneumothorax. Visualized cardiac contours gigi l. Liver: No significant findings. Gallbladder and [...] M.D. on 12/03 05:16 AM BASIC METABOLIC [id number] 03:08:00* Test Item Value Reference Range Interpretation [...] GFR IS NOT APPLICABLE FOR DIALYSIS PATIENTS. Slab Polisher ID - EJMEBSZSFUNOXW1831-45-64 03:05:00* Test Item Value Reference Range Interpretation Comments LIPASE (BEAKER) (test code = 749) 20 U/L 6-51 Slab Polisher ID - RESORIANURINALYSIS W/ NGBYHIMYEDW5958-31-13 03:05:00* Test Item Value Reference Range Interpretation [...] (BEAKER) (test code = 466) Trace Negat kalra A UROBILINOGEN UA (BEAKER) (test code = 463) 0.2 mg/dL 0.2-1.0 BACTERIA (BEAKER) (test code = 517) Moderate RBC UA-MANUAL (BEAKER) (test code = 1659) <5 /HPF WBC UA-MANUAL (BEAKER) (test code = 1661) 5-10 /HPF SQUAMOUS EPITHELIAL MANUAL (BEAKER) (test code = 1663) 10-20 /HPF SOURCE(BEAKER) (test code = 2795) HEPATIC FUNCTION [id number] 03:04:00* Test Item Value Reference Range Interpretation [...] (test code = 347) 10 U/L 5-50 Slab Polisher ID - RESORIANPREGNANCY SCREEN, EZIZS1087-11-54 03:02:00* Test Item Value Reference Range Interpretation Comments TEST URINE (BEAKER) (test code = 583) Negative Lactic acid, eochlw9247-63-21 02:57:00* Test Item Value Reference Range Interpretation Comments Lactate, Venous (test code = 2872) 0.41 mmol/L 0.5-2 L RADHA (test code = RADHA) Slab Polisher ID - RESORIAN Lab Interpretation (test code = 46950-2) Abnormal [facility] AC[facility], TFJGUU6983-31-61 02:57:00* Test Item Value Reference Range Interpretation Comments LACTATE BLOOD VENOUS (2) (BEAKER) (test code = 2872) 0.41 mmol/L 0 .50-2.00 L Slab Polisher ID - RESORIANCBC W/PLT COUNT & AUTO TVARYLUEDUYC3722-56-04 02:44:00* Test Item Value Reference Range Interpretation [...] 0 % 0-0 US PELVIS-NON OB - DUIL4835-36-58 12:54:00 [place] [address] Patient Name: KENNETH PLATT MR #: [id number] : 1985 Age/Sex: 33/F Req #: [id number] Adm Physician: Ordered by: ED WAGNER MD Report #: [id number] Location: [facility] Room/Bed: Procedure: [id number] HOPD/US PEL VIS-NON OB - HOPD Exam [...] MD 125 Transcribed By: MALLIKA on 12/01/19 125 COPY TO: ED JOLLY MD CT ABD/PEL WO JENXLSKK-MCKH8723-60-29 12:47:00 [place] [address] Patient Name: KENNETH PLATT MR #: [id number] : 1985 Age/Sex: 33/F Req #: [id number] [facility] Physician: Ordered by: ED WAGNER MD Report #: [id number] Location: [facility] Room/Bed: Procedure: [id number] HOPD/CT ABD /PEL WO CONTRAST-HOPD Exam Date: [...] ED WAGNER MD STD Panel - CT/GC IRL5933-42-51 12:21:00* Test Item Value Reference Range Interpretation Comments C. trachomatis RNA, TMA (test code = 1037398) NOT DETECTED N. gonorrhoeae RNA, TMA (test code = 1010350) NOT DETECTED REFERENCE RANGE: NOT DETECTED Methodology: Tooth Cutter Clutch Mediated Amplification (TMA)to detect RNA. The analytical performance characteristics of this assay,when used to test SurePath(TM) specimens have been determinedby [facility]. The modificationshave not been cleared or approved by the FDA. This assayhas been validated pursuant to the CLIA regulations andis used for clinical purposes. For additional information, please refer tohttps://education.KiwiTech.Showcase-TV/faq/WZA460(This link is being provided for informational/educational purposes only.) RADHA (test code = RADHA) Performing Lab *QDID [facility] [address] [place] [address] Ash Peres MD [facility] CenterCT, [id number] 16:13:00Reason for exam:-> ABDOMINAL PAINReason for exam:->NAUSEAReason [...] Verified Date/Time: 11/06/2019 16:1 3:27 Reading Location: [facility] C013Y CT Body Reading Room Electronically sig justin by: TERESO ROSE MD on 11/06/2019 04:[address] abdomen pelvis with IV gkbiomyt7714-47-89 16:13:00Interface, External Ris In - 11/06/2019 4:16 [...] MDReport Verified Date/Time: 11/06/2019 16:13:27 Reading Location: [place] [address] [facility] Body Reading Room Medical CenterURINALYSIS W/ MICROSCOPIC 2019-11-06 15:23:00* Test Item Value [...] /HPF SOURCE(BEAKER) (test code = 2795) SCREEN, [id number] 15:22:00* Test Item Value Reference Range Interpretation Comments TEST URINE (BEAKER) (test code = 583) Negative HIV-1 Antigen with HIV-1/2 Gyfmxleg0440-70-46 14:49:00* Test Item Value Reference Range Interpretation Comments HIV-1 Antigen with HIV 1&2 Antibody (test code = 96739-6) No nreactive Nonreactive RADHA (test code = RADHA) Slab Polisher ID - [id number] Lab Interpretation (test code = 78829-7) Normal [facility] ANTIGEN WITH HIV-1/2 UAQWNNFY0765-53-57 14:49:00* Test Item Value Reference Range Interpretation Comments HIV-1 ANTIGEN WITH HIV 1\T\2 ANTIBODY (2) (BEAKER) (te st code = 2586) Nonreactive Nonreactive Slab Polisher ID - woml54ZLKGUQ2611-37-00 14:40:00* Test Item Value Reference Range Interpretation Comments LIPASE (BEAKER) (test code = 749) 27 U/L 6-51 Slab Polisher ID - [id number] FUNCTION RVFNN5786-01-45 14:39:00* Test Item Value Reference Range Interpretation [...] 347) 11 U/L 5-50 Specimen moderately hemolyzed Slab Polisher ID - [id number] METABOLIC KLWFC0582-17-96 14:38:00* Test Item Value Reference Range Interpretation [...] GFR IS NOT APPLICABLE FOR DIALYSIS PATIENTS. Slab Polisher ID - [id number] ACID, KCLYNG2119-34-08 14:36:00* Test Item Value Reference Range Interpretation Comments LACTATE BLOOD VENOUS (2) (BEAKER) (test code = 2872) 0.77 mmol/L 0 .50-2.00 Specimen markedly hemolyzed Slab Polisher ID - fafc06Jwj prep, oemidgo3585-35-08 14:17:00* Test Item Value Reference Range Interpretation Comments WBC - wet prep (test code = 68639-1) Few white blood cells seen Clue cells - wet prep (test code = 30080-6) No clue cells seen Yeast - wet prep (test code = 00519-3) No budding yeast seen Trichomonas - wet prep (test code = 6565-6) No Trichomonas seen Bacteria - wet prep (test code = 02420-8) Moderate bacteria seen [facility] CYZZ2034-53-48 14:17:00* Test Item Value Reference Range Interpretation [...] bacteria seen CBC W/PLT COUNT & AUTO QHABFTOPZTRC6098-63-90 13:33:00* Test Item Value Reference Range Interpretation [...] % 0-0 U/S, PELVIS, WITH ENDOVAG AND SZMCWFK0951-00-44 12:25:00Reason for exam:-> ABDOMINAL PAINReason for exam:->VAGINAL [...] Yasmin ified Date/Time: 09/24/2019 12:25:17 Reading Location: [facility] Radiology Reading Room pelvis with endovag with eskydju3226-27-15 12:25:00Interface, External Ris In - 09/24/2019 12:27 [...] Harrington Verified Date/Time: 09/24/2019 12:25:17 Reading Location: [facility] Radiology Reading Room Medical CenterUrinalysis w/Microscopic + Reflex to Vlfoqpg5616-32-00 10:11:00* Test Item Value Reference Range Interpretation Comments Color, UA (test code = 5778-6) Yellow Clarity, UA (test code = 5767-9) Clear Specific [place], UA (test code = 5811-5) 1.010 1.001-1.035 pH, UA (test code = 5803-2) 6.0 5.0-8.0 Protein, UA (test code = 98255-3) Negative Negative Glucose, UA (test code = 365) Negative Negative Ketones, UA (test code = 2514-8) Negative Negative Bilirubin, UA (test code = 81456-5) Negative Negative Blood, UA (test code = 36125-1) Moderate Negative A Nitrite, UA (test code = 5802-4) Negative Negative Leukocytes, UA (test code = 5799-2) Negative Negative Urobilinogen, UA (test code = 95977-0) 0.2 mg/dL 0.2-1 Bacteria, UA (test code = 19870-5) Few RBC, UA (test code = 799-7) <5 /HPF WBC, UA (test code = 24021-6) <5 /HPF SQUAMOUS EPITHELIAL (test code = 33832-8) <5 /HPF Specimen Source (test code = 2795) Lab Interpretation (test code = 64642-7) Abnormal [facility]/ REFLEX URINE CFEVYQN9186-72-28 10:11:00* Test Item Value Reference Range Interpretation [...] /HPF SOURCE(BEAKER) (test code = 2795) SCREEN, QVJMO5335-13-11 10:05:00* Test Item Value Reference Range Interpretation Comments TEST URINE (BEAKER) (test code = 583) Negative CT, BOOZGSX1798-06-17 13:29:00FINAL REPORT CT of the abdomen and [...] Verified Date/Time: 08/17/2019 13 :29:23 Reading Location: [facility] C013X Ortho Consult Reading Room [facility] signed by: SVEN LONGO M.D. on 08/17/2019 01:29 PM SCREEN, URINE 2019-08-17 12:40:00* Test Item Value Reference Range Interpretation Comments TEST URINE (BEAKER) (test code = 583) Negative HEPATIC FUNCTION JPCET6736-18-62 12:19:00* Test Item Value Reference Range Interpretation [...] 347) 16 U/L 5-50 Specimen moderately hemolyzed Slab Polisher ID - fosr97CBIDZP4381-58-16 12:15:00* Test Item Value Reference Range Interpretation Comments LIPASE (BEAKER) (test code = 749) 29 U/L 6-51 Slab Polisher ID - [id number] METABOLIC DKPLQ0546-41-91 12:12:00* Test Item Value Reference Range Interpretation [...] GFR IS NOT APPLICABLE FOR DIALYSIS PATIENTS. Slab Polisher ID - [id number] ACID, QUZGZQ6827-31-42 12:07:00* Test Item Value Reference Range Interpretation Comments LACTATE BLOOD VENOUS (2) (BEAKER) (test code = 2872) 0.9 mmol/L 0 .5-2.0 Specimen moderately hemolyzed Slab Polisher ID - [id number] W/PLT COUNT & AUTO RJKGLGLKOTYE4231-54-88 11:52:00* Test Item Value Reference Range Interpretation [...] 0 % 0-0 Blood culture, aerobic & wcgemhcik5143-67-68 03:03:06* Test Item Value Reference Range Interpretation Comments Blood culture isolate (test code = 600-7) No growth after 5 days of incubation. Specimen InformationSpecimen Source: BloodSpecimen Site: Antecubital, left [place] MethodistBasic metabolic scxaz0830-75-81 06:01:21* Test Item Value Reference Range Interpretation Comments Sodium (test code = 2951-2) 137 135- 148 mEq/L Potassium (test code = 2823-3) 4.1 3.5- 5.0 mEq/L Chloride (test code = 2075-0) 109 98- 112 mEq/L CO2 (test code = 2028-9) 20 24- 31 mEq/L L Anion gap (test code = 03109-4) 8@ANIO 7- 15 mEq/L BUN (test code = 3094-0) 10 mg/dL 6-20 Creatinine (test code = 2160-0) 0.67 mg/dL 0.5-0.9 Glucose (test code = 2345-7) 94 mg/dL 65-99 Calcium (test code = 86972-0) 8.3 mg/dL 8.3-10.2 Lab Interpretation (test code = 90478-8) Abnormal [place] MethodistLactic acid level, SEPSIS - Now and repeat 2x every 3 hours 2019-08-08 03:02:51* Test Item Value Reference Range Interpretation Comments Lactic acid (test code = 78030-8) 0.7 mmol/L 0.5-2.2 [place] MethodistU/S, PELVIS, WITH ENDOVAG AND URMVFAO3695-53-74 02:04:00Reason for exam:->abd pain; eval for torsionFINAL [...] Pichardo MDReport Verified Date/Time: 08/03/2019 02:04:08 , DLSSSBK9834-10-99 23:51:00 Reason for exam:->lower abd pain, vomitingFINAL [...] GFR IS NOT APPLICABLE FOR DIALYSIS PATIENTS. WUNBCN7941-10-10 22:46:00* Test Item Value Reference Range Interpretation Comments LIPASE (BEAKER) (test code = 749) 31 U/L 6-51 URINALYSIS W/ PJGWNPJSJHM0994-72-94 22:05:00* Test Item Value Reference Range Interpretation [...] 1661) <5 /HPF SOURCE(BEAKER) (test code = 0255) SQUAMOUS EPITHELIAL MANUAL (BEAKER) (test code = 1663) 50-100 /HPF This is an appended report. These results have been appended to a previously final verified report. SCREEN, [id number] 21:18:00* Test Item Value Reference Range Interpretation Comments TEST URINE (BEAKER) (test code = 583) Negative CBC W/PLT COUNT & AUTO YIHVTNRYTPUT8025-74-42 21:13:00* Test Item Value Reference Range Interpretation [...] code = 2801) 0 % 0-0 Manual Gxkvoajgodwd6989-14-47 20:16:00* Test Item Value Reference Range Interpretation Comments Total Counted (test code = 1351) WBC Morphology (test code = 487) Normal RBC Morphology (test code = 762) Normal Hypogranular Platelet (test code = 2157) Present [facility] W/PLT COUNT & AUTO FXWFIDXYUZKV7465-23-17 20:16:00* Test Item Value Reference Range Interpretation [...] (test code = 2157) Present COMPREHENSIVE METABOLIC SIIYH4803-05-64 19:38:00* Test Item Value Reference Range Interpretation [...] GFR IS NOT APPLICABLE FOR DIALYSIS PATIENTS. [id number] 19:38:00* Test Item Value Reference Range Interpretation Comments LIPASE (BEAKER) (test code = 749) 22 U/L 6-51 URINALYSIS W/ [id number] 19:30:00* Test Item Value Reference Range Interpretation [...] /HPF SOURCE(BEAKER) (test code = 2795) SCREEN, [id number] 19:22:00* Test Item Value Reference Range Interpretation Comments TEST URINE (BEAKER) (test code = 583) Negative - US PELVIC [id number] 15:20:00 Name: KENNETH PLATT : 1985 Age/S: 33 / F [address] Unit #: [id number] Loc: [place] [address] Phys: Mk Santos MD Acct: [id number] Dis Date: Status: REG ER PHONE #: [phone] Exam Date: 06/22/2019 1454 FAX #: Reason: pelvic pain EXAMS: CPT: [id number] US PELVIC COMPLETE [id number] Site ID: [id number] EXAMINATION: - US TRANSVAGINAL [...] Technologist: Filomena Bautista Trnscb Date/Time: 06/22/2019 (1520) Molly.TZS PAGE 1 Signed Report Name: KENNETH PLATT : 1985 Age/S: 33 / F [address] Unit #: [id number] Loc: [place] [address] Phys: Mk Santos MD Acct: [id number] Dis Date: Status: REG ER PHONE #: [phone] Exam Date: 06/22/2019 1455 FAX #: Reason: pelvic pain EXAMS: CPT: [id number] US PELVIC COMPLETE 01439 < Continued> Orig Print D/T: S: 06/22/2019 (1523) Probe: PAGE 2 Signed Report - US TRANSVAGINAL NON [id number] 15:20:00 Name: KENNETH PLATT Osteen : 1985 Age/S: 33 / F [address] Unit #: [id number] Loc: [place] [address] Phys: Mk Santos MD Acct: [id number] Di s Date: Status: REG ER PHONE #: Exam Date: 06/22/2019 1455 FAX #: Reason: pelvic pain EXAMS: CPT: [id number] [place] [id number] Site ID: [id number] EXAMINATION: - US TRANSVAGINAL [...] PAGE 1 Signed Report Name: KENNETH PLATT Osteen : 1985 Age/S: 33 / F [address] Unit #: [id number] Loc: [place] [address] Phys: Mk Snatos MD Acct: [id number] Dis Date: Status: REG ER PHONE #: [phone] Exam Date: 06/22/2019 3295 FAX #: Reason: pelvic pain EXAMS: CPT: [id number] [place] [address] < Continued> Orig Print D/T: S: 06/22/2019 (1523) Probe: [id number] PAGE 2 Signed Report UA RFLX MICR CULT IF [id number] 14:19:00* Test Item Value Reference Range Interpretation [...] CATCHIndication for culture: Dysuria/FrequencyDRUGS OF ABUSE SCREEN [id number] 14:19:00* Test Item Value Reference Range Interpretation [...] URINE: CLEAN CATCHIndication for culture: Dysuria/FrequencyBASIC METABOLIC [id number] 14:14:00* Test Item Value Reference Range Interpretation [...] CA) 8.4 MG/DL 8.5-10.1 L HEPATIC FUNCTION [id number] 14:14:00* Test Item Value Reference Range Interpretation [...] code = ALKP) 54 Unit/L 45-117 N [id number] 14:14:00* Test Item Value Reference Range Interpretation Comments LIPASE (test code = LIP) 83 Unit/L 114-286 L CBC W/AUTO [id number] 14:08:00* Test Item Value Reference Range Interpretation [...] = MDIFF) NO DIFF/SCN CRITERIA BASIC METABOLIC [id number] 14:08:00* Test Item Value Reference Range Interpretation [...] CA) 8.4 MG/DL 8.5-10.1 L HEPATIC FUNCTION [id number] 14:08:00* Test Item Value Reference Range Interpretation [...] TOTAL (test code = ALKP) Unit/L 45-117 [id number] 14:08:00* Test Item Value Reference Range Interpretation Comments LIPASE (test code = LIP) 83 Unit/L 114-286 L UA RFLX MICR CULT IF [id number] 14:02:00* Test Item Value Reference Range Interpretation [...] CATCHIndication for culture: Dysuria/FrequencyDRUGS OF ABUSE SCREEN [id number] 14:02:00* Test Item Value Reference Range Interpretation [...] for culture: Dysuria/FrequencyUA RFLX MICR CULT IF [id number] 14:02:00* Test Item Value Reference Range Interpretation [...] CATCHIndication for culture: Dysuria/FrequencyDRUGS OF ABUSE SCREEN [id number] 14:02:00* Test Item Value Reference Range Interpretation [...] beresampled and retested after 48 hours Gram [id number] 05:46:53Gram stain resultNo WBC'sMany Gram variable rods Comment: Specimen InformationSpecimen Source: UrineSpecimen Site: [facility], PELVIS, WITH ENDOVAG AND DOPPLER 2019-04-17 [...] sonographic examination of the pelvis. Signed: [facility] Verified Date/Time: 04/17/2019 02:58:04 EN, [id number] 02:11:00* Test Item Value Reference Range Interpretation Comments TEST URINE (BEAKER) (test code = 583) Negative URINALYSIS W/ [id number] 02:03:00* Test Item Value Reference Range Interpretation [...] /HPF SOURCE(BEAKER) (test code = 2795) WET [id number] 01:07:00* Test Item Value Reference Range Interpretation [...] = 532) Few bacteria seen COMPREHENSIVE METABOLIC [id number] 23:43:00* Test Item Value Reference Range Interpretation [...] GFR IS NOT APPLICABLE FOR DIALYSIS PATIENTS. [id number] 23:43:00* Test Item Value Reference Range Interpretation Comments LIPASE (BEAKER) (test code = 749) 14 U/L 6-51 CBC W/PLT COUNT & AUTO [id number] 23:28:00* Test Item Value Reference Range Interpretation [...] (test code = 2801) 0 % 0-0 [id number] 16:59:00* Test Item Value Reference Range Interpretation Comments LIPASE (BEAKER) (test code = 749) 71 U/L 40-240 BASIC METABOLIC [id number] 16:59:00* Test Item Value Reference Range Interpretation [...] NOT APPLICABLE FOR DIALYSIS PATIENTS. HEPATIC FUNCTION [id number] 16:59:00* Test Item Value Reference Range Interpretation [...] = 347) 24 U/L 5-50 BLOOD GAS, [id number] 16:53:00* Test Item Value Reference Range Interpretation [...] (test code = 1819) 21 LACTIC ACID, [id number] 16:53:00* Test Item Value Reference Range Interpretation Comments LACTATE BLOOD VENOUS (2) (BEAKER) (test code = 2872) 0.7 mmol/L 0 .5-2.2 CBC W/PLT COUNT & AUTO [id number] 16:45:00* Test Item Value Reference Range Interpretation [...] 0.04 K/ L 0. 00-0.20 URINALYSIS W/ [id number] 16:19:00* Test Item Value Reference Range Interpretation [...] code = 2795) CLUE CELLS SEEN. SCREEN, [id number] 16:12:00* Test Item Value Reference Range Interpretation Comments TEST URINE (BEAKER) (test code = 583) Negative GLUCOSE BEDSIDE [id number] 08:34:00* Test Item Value Reference Range Interpretation Comments GLUCOSE BEDSIDE TESTING (test code = GLUBED) 68 mg/dL 70-110 L BASIC METABOLIC [id number] 06:45:00* Test Item Value Reference Range Interpretation [...] CA) 7.9 MG/DL 8.5-10.1 L CBC W/AUTO [id number] 06:33:00* Test Item Value Reference Range Interpretation [...] = MDIFF) NO DIFF/SCN CRITERIA GLUCOSE BEDSIDE [id number] 17:47:00* Test Item Value Reference Range Interpretation Comments GLUCOSE BEDSIDE TESTING (test code = GLUBED) 93 mg/dL 70-110 N GLUCOSE BEDSIDE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 03/17/2018 23:38:39 Reading Location: [address] Reading Room W/PLT COUNT & AUTO [id number] 23:25:00* Test Item Value Reference Range Interpretation [...] = 2801) 0 % 0-1 US Abdomen [id number] 12:39:50Patient: KENNETH PLATT Date/Time12/11/2017 12:29 CDTReason for ExamNausea and vomitingReportUS Abdomen LimitedLOCATION: [id number]:Nausea and vomitingCOMPARISON: CT of the abdomen and [...] 12 :39 pmUS [employer] w/Transvag if [id number] 12:37:35Patient: KENNETH PLATT Date/Time12/11/2017 12:30 CDTReason for ExamPain (please specify)ReportUS [employer] w/Transvag if indicatedLOCATION: [id number]: Pain (please specify); nausea and vomiting; patient [...] 12:35 pmSigned by: MD Pemberton A lfred ESignlynette (Electronic Signature): 12/11/2017 12:37 pmChlamydia/GC [id number] 16:27:00* Test Item Value Reference Range Interpretation Comments Chlamydia trachomatis, ERIN (test code = 621037) Negative Negati ve N Neisseria gonorrhoeae, ERIN (test code = 171719) Negative Negati ve N Culture, [id number] 08:46:00Specimen: UrineCollected: 11/12/2017 16:30 Status: Final Last Updated: 11/14/2017 08:46 Culture Result (Final) (Final) 11/13/17 No growth 24 hours 11/14/17 No growth 48 hours Antibody Screen - [id number] 09:04:00* Test Item Value Reference Range Interpretation Comments Antibody Screen (test code = ABSCR) Negative Blood Type and [id number] 08:43:00* Test Item Value Reference Range Interpretation Comments ABO type (test code = ABO) O Rh Type (test code = RH) Negative Hep B Surface [id number] 08:14:00* Test Item Value Reference Range Interpretation Comments Hep Bs Ag (test code = HBSAG) Nonreactive Non-Reactive A Rubella [id number] 23:55:00* Test Item Value Reference Range Interpretation Comments Rubella IgG (test code = RUBELIGG) Immune Immune N [id number] 18:53:00* Test Item Value Reference Range Interpretation [...] code = THC) Negative Negative N Urinalysis [id number] 18:53:00* Test Item Value Reference Range Interpretation Comments Color (test code = COLOR) Yellow Yellow,Straw,Pl yellow N Clarity (test code = CLAR) Clear Clear N Specific [place] (test code = SPGR) 1.020 1.001-1.035 N [...] (test code = YEAST) Few /HPF HIV [id number] 18:30:00* Test Item Value Reference Range Interpretation Comments HIV 1/2 Antibody (test code = HIV1/2AB) Non-Reactive Non-Reactive N HIV1/2 Antibody screen result indicates the absence of HIV1 and FIR3rxabgoikh.However, A Non-Reactive screen result does not rule [...] suspected, HIV RNA Quantitative is recommended. Membrane [id number] 18:17:00* Test Item Value Reference Range Interpretation [...] be based solely on ROMPlus results. RPR, [id number] 02:06:00* Test Item Value Reference Range Interpretation Comments RPR (test code = RPR) Non-Reactive Non-Reactive N Thyroid Stimulating Hormone (TSH)2017-11-11 21:52:00* Test Item Value Reference Range Interpretation Comments TSH (test code = TSH) 1.64 mIU/mL 0.270-4.200 N Comprehensive Metabolic [id number] 21:52:00* Test Item Value Reference Range Interpretation [...] race is not provided, and the patient isAfrican-Swazi, multiply by 1.212. If sex is not [...] by the National Kidney Found ation,http://nkdep.nih.gov Lipid [id number] 21:52:00* Test Item Value Reference Range Interpretation Comments Cholesterol (test code = CHOL) 200 mg/dL 0-200 N Triglycerides (test code = TRIG) 133 mg/dL 9-200 N HDL (test code = HDL) 101 mg/dL 50-60 H Chol/HDL (test code = CHOLPHDL) 2.0 Ratio 0.0-4.4 N LDL, Calculated (test code = LDLC) 72 mg/dL 0-130 N (NOTE)RISK OF HEART DISEASEPublished by Swazi Heart AssociationAnalyte Optimal Boderline Increased RiskCHOL <200 200-239 >240TRIG <150 150-199 >200HDL Male: >60 <40HDL Female: >60 <50LDL <100 130-159 >160LDL NEAR OPTIMAL IS 100-129 VLDL (test code = VLDL) 27 mg/dL 5-40 N LDL/HDL (test code = LDLPHDL) 1 CBC with [id number] 21:37:00* Test Item Value Reference Range Interpretation [...] code = ALYMPH) 1.9 K/cumm 0.5-4.6 N [place] Abs (test code = AMONO) 0.4 K/cumm 0.0-1.2 N Eos Abs (test code = AEOS) 0.16 K/cumm 0.00-0.74 N Baso Abs (test code = ABASO) 0.0 K/cumm 0.00-0.21 N Hypochromic (test code = HYPO) Slight US OB LIMITED POSITION [id number] 21:08:25PREGNANCY ULTRASOUNDLOCATION: R 16History: Technique: Transabdominal sonography [...] day gestation. No oth er obviousabnormality identified.URINE [id number] 10:03:00* Test Item Value Reference Range Interpretation Comments CULTURE (BEAKER) (test code = 1095) >100,000 col/mL skin vane POCT-GLUCOSE [id number] 15:29:00* Test Item Value Reference Range Interpretation Comments POC-GLUCOSE METER (BEAKER) (test code = 1538) 89 mg/dL 70-[address] [facility] [address] [facility] [address] URINALYSIS W/ [id number] 14:59:00* Test Item Value Reference Range Interpretation [...] /HPF SOURCE(BEAKER) (test code = 2795) SCREEN, [id number] 14:59:00* Test Item Value Reference Range Interpretation Comments TEST URINE (BEAKER) (test code = 583) Positive HCG, QUANTITATIVE, [id number] 12:34:00* Test Item Value Reference Range Interpretation [...] DIALYSIS PATIENTS. CBC W/PLT COUNT & AUTO [id number] 12:07:00* Test Item Value Reference Range Interpretation [...] code = 2801) 0 % 0-1 TROPONIN [id number] 16:23:00* Test Item Value Reference Range Interpretation [...] neurological disease, and per sistent tachyarrhythmia.COMPREHENSIVE METABOLIC [id number] 16:21:00* Test Item Value Reference Range Interpretation [...] GFR IS NOT APPLICABLE FOR DIALYSIS PATIENTS. [id number] 16:17:00* Test Item Value Reference Range Interpretation Comments LIPASE (BEAKER) (test code = 749) 9 U/L 6-51 URINALYSIS W/ [id number] 16:10:00* Test Item Value Reference Range Interpretation [...] /HPF SOURCE(BEAKER) (test code = 2795) SCREEN, [id number] 16:06:00* Test Item Value Reference Range Interpretation Comments TEST URINE (BEAKER) (test code = 583) Negative CBC W/PLT COUNT & AUTO [id number] 15:51:00* Test Item Value Reference Range Interpretation [...] = 417) 0.00 K/ L 0. 00-0.20 [id number] 09:09:00* Test Item Value Reference Range Interpretation [...] = THC) POSITIVE Negative A Comprehensive Metabolic [id number] 09:09:00* Test Item Value Reference Range Interpretation [...] race is not provided, and the patient isAfrican-Swazi, multiply by 1.212. If sex is not [...] by the National Kidney Found ation,http://nkdep.nih.gov Urinalysis [id number] 09:06:00* Test Item Value Reference Range Interpretation Comments Color (test code = COLOR) Straw Yellow,Straw,Pl yellow N Clarity (test code = CLAR) Cloudy Clear A Specific [place] (test code = SPGR) 1.015 1.001-1.035 N [...] code = TRICH) Many /HPF CBC with Ylftrrsvkrha3645-17-84 08:57:00* Test Item Value Reference Range Interpretation [...] code = ALYMPH) 1.1 K/cumm 0.5-4.6 N [place] Abs (test code = AMONO) 0.4 K/cumm 0.0-1.2 N Eos Abs (test code = AEOS) 0.10 K/cumm 0.00-0.74 N Baso Abs (test code = ABASO) 0.0 K/cumm 0.00-0.21 N Hypochromic (test code = HYPO) Slight BHCG, Serum, [id number] 08:51:00* Test Item Value Reference Range Interpretation Comments Preg Qual [Se] (test code = BSHCG) Negative Negative N BLOOD [id number] 07:00:00* Test Item Value Reference Range Interpretation Comments CULTURE (BEAKER) (test code = 1095) No growth in 5 days BLOOD [id number] 07:00:00* Test Item Value Reference Range Interpretation Comments CULTURE (BEAKER) (test code = 1095) No growth in 5 days URINE [id number] 07:59:00* Test Item Value Reference Range Interpretation Comments CULTURE (BEAKER) (test code = 1095) 90-99,000 col/mL skin vane RAPID DRUG SCREEN, [id number] 05:09:00* Test Item Value Reference Range Interpretation [...] situations. Chain of custody not maintained. Some ykro-hhh-tgtpczv me dications, as well as adulterants, may cause inaccurate results. Clinical correl ation should be applied. A more comprehensive drug screen or confirmation of a d etected drug may be performed upon request.Propoxyphene - NegativeSignify ER [place] g Screen Test KitSAINT [facility] W/PLT COUNT & AUTO [id number] 05:04:00* Test Item Value Reference Range Interpretation [...] 417) 0.00 K/ L 0. 00-0.20 WET [id number] 05:03:00* Test Item Value Reference Range Interpretation [...] = 532) Few bacteria seen COMPREHENSIVE METABOLIC [id number] 05:03:00* Test Item Value Reference Range Interpretation [...] NOT APPLICABLE FOR DIALYSIS PATIENTS. URINALYSIS W/ [id number] 04:59:00* Test Item Value Reference Range Interpretation [...] code = 2795) LACTIC ACID, VENOUS, WHOLE [id number] 04:55:00* Test Item Value Reference Range Interpretation Comments LACTATE BLOOD VENOUS (2) (BEAKER) (test code = 2872) 0.5 mmol/L 0 .5-2.2 Effective 12/06/2015: Units/Reference Range ChangeNew: 0.5-2.2 mmol/L Previous: 5 -18 mg/dLCBC W/PLT COUNT & AUTO [id number] 09:16:00* Test Item Value Reference Range Interpretation [...] = 417) 0.02 K/ L 0. 00-0.20 0.64Wqf-Rth9953-45-13 08:23:00* Test Item Value Reference Range Interpretation Comments NT ProBnp (test code = PBNP) 7 pg/mL 0-124 N CK [id number] 07:41:00* Test Item Value Reference Range Interpretation Comments CK (test code = CK) n/a U/L 26-192 N CKMB (test code = CKMB) <1.0 ng/mL 0.0-2.8 N CKMB% (test code = CKMBP) No Calc % 0.0-3.4 N Un able to calculate due to one or more values out of test measurement range. BHCG, Serum, [id number] 07:38:00* Test Item Value Reference Range Interpretation Comments B hCG, Quant (test code = BHCGQT) 6365 mIU/mL Weeks of Gestation Ranges (mIU/mL)3 weeks 5.40 - 72.04 weeks 10.2 - 7085 weeks 217 - 66658 weeks 152 - 607024 weeks 4059 - 1659384 weeks 39217 - 1687949 weeks 82007 - 95000258 weeks 41274 - 52217280 weeks 69934 - 51338408 weeks 06286 - 7343353 weeks 08109 - 3647320 weeks 0153 - 8511091 weeks 7657 - 2920483 weeks 1309 - [address] Comprehensive Metabolic [id number] 07:26:00* Test Item Value Reference Range Interpretation [...] race is not provided, and the patient isAfrican-Swazi, multiply by 1.212. If sex is not [...] by the National Kidney Found ation,http://nkdep.nih.gov Troponin [id number] 07:25:00* Test Item Value Reference Range Interpretation Comments Troponin T (test code = CARRIE) <0.010 ng/mL 0.000-0.090 N D-Dimer, [id number] 06:59:00* Test Item Value Reference Range Interpretation Comments D-Dimer, Quant (test code = DDQNT) 1302 ng/mL 0-500 H Prothrombin [id number] 06:56:00* Test Item Value Reference Range Interpretation Comments PT (test code = PT) 11.30 seconds 9.78-13.35 N INR (test code = INR) 0.99 Ratio 0.6-1.2 N Partial Thromboplastin [id number] 06:56:00* Test Item Value Reference Range Interpretation Comments aPTT (test code = PTT) 30.80 seconds 24.39-37.25 N CBC with Iisnppnacleb5009-18-28 06:47:00* Test Item Value Reference Range Interpretation [...] code = ALYMPH) 1.5 K/cumm 0.5-4.6 N [place] Abs (test code = AMONO) 0.6 K/cumm 0.0-1.2 N Eos Abs (test code = AEOS) 0.15 K/cumm 0.00-0.74 N Baso Abs (test code = ABASO) 0.0 K/cumm 0.00-0.21 N Sed Rate ESR ([place])2016-10-13 12:37:00* Test Item Value Reference Range Interpretation Comments ESR (test code = HESR) 52 mm/Hr 0-20 H Comprehensive Metabolic [id number] 09:23:00* Test Item Value Reference Range Interpretation [...] race is not provided, and the patient isAfrican-Swazi, multiply by 1.212. If sex is not [...] by the National Kidney Found ation,http://nkdep.nih.gov Vancomycin, [id number] 09:21:00* Test Item Value Reference Range Interpretation Comments [place] Jones (test code = VANTR) <1.7 ug/mL 10.0-20.0 L Culture, [id number] 09:03:00Specimen: UrineCollected: 10/11/2016 10:55 Status: Final Last Updated: 10/13/2016 09:03 Culture Result (Final) (Final) 10/12/16 No growth 24 hours 10/13/2016 No growth 48 hours CBC with [id number] 08:34:00* Test Item Value Reference Range Interpretation [...] code = ALYMPH) 1.2 K/cumm 0.5-4.6 N [place] Abs (test code = AMONO) 0.5 K/cumm 0.0-1.2 N Eos Abs (test code = AEOS) 0.14 K/cumm 0.00-0.74 N Baso Abs (test code = ABASO) 0.0 K/cumm 0.00-0.21 N RPR, [id number] 19:58:00* Test Item Value Reference Range Interpretation Comments RPR (test code = RPR) Non-Reactive Non-Reactive N Rubella [id number] 05:46:00* Test Item Value Reference Range Interpretation Comments Rubella IgG (test code = RUBELIGG) Immune Immune N RPR, [id number] 05:46:00* Test Item Value Reference Range Interpretation Comments RPR (test code = RPR) Non-Reactive Non-Reactive N HIV [id number] 15:43:00* Test Item Value Reference Range Interpretation Comments HIV 1/2 Antibody (test code = HIV1/2AB) Non-Reactive Non-Reactive N HIV1/2 Antibody screen result indicates the absence of HIV1 and LQQ5jmrrblovd.However, A Non-Reactive screen result does not rule [...] RNA Quantitative is recommended. Antibody Screen - [id number] 13:41:00* Test Item Value Reference Range Interpretation Comments Antibody Screen (test code = ABSCR) Negative Hep B Surface [id number] 12:19:00* Test Item Value Reference Range Interpretation Comments Hep Bs Ag (test code = HBSAG) Nonreactive Non-Reactive A [id number] 12:04:00* Test Item Value Reference Range Interpretation [...] = THC) Negative Negative N Comprehensive Metabolic [id number] 12:04:00* Test Item Value Reference Range Interpretation [...] race is not provided, and the patient isAfrican-Swazi, multiply by 1.212. If sex is not [...] National Kidney Found ation,http://nkdep.nih.gov Blood Type and [id number] 11:51:00* Test Item Value Reference Range Interpretation Comments ABO type (test code = ABO) O Rh Type (test code = RH) Negative Urinalysis Dwcfcecr1127-97-71 11:41:00* Test Item Value Reference Range Interpretation Comments Color (test code = COLOR) Yellow Yellow,Straw,Pl yellow N Clarity (test code = CLAR) Sl Cloudy Clear A Specific [place] (test code = SPGR) 1.016 1.001-1.035 N [...] code = MEXAM) Not indicated CBC with Ermewnbocslg0729-96-43 11:37:00* Test Item Value Reference Range Interpretation [...] code = ALYMPH) 1.3 K/cumm 0.5-4.6 N [place] Abs (test code = AMONO) 0.5 K/cumm 0.0-1.2 N Eos Abs (test code = AEOS) 0.13 K/cumm 0.00-0.74 N Baso Abs (test code = ABASO) 0.0 K/cumm 0.00-0.21 N
== END 2020-05-12 15:30 | disposition home or self-care (01) ==
LOC: FSED 14:43
DX: L01.00 Impetigo, unspecified (principal); L73.9 Follicular disorder, unspecified; D57.1 Sickle-cell disease without crisis; F15.90 Other stimulant use, unspecified, uncomplicated
CPT/HCPCS: 99283

== ENCOUNTER 2020-11-23 22:56 | Emergency (ER) | payer MEDICARE, OTHER ==
[~2020-11-23] VITALS: Ht 165.1 cm; Wt 77.1 kg
[~2020-11-23 22:56] MED LIST changes: +CLINDAMYCIN HC150 MG PO; +DOXYCYCLINE HY100 MG PO
[2020-11-24] MEDS ORDERED: PROMETHAZINE HCL (IM) 25 MG/ML VIAL IM ONE (02:08)
[2020-11-24] MEDS ORDERED: MORPHINE SULFATE INJ 4 MG/ML INJ 1ML ONE (02:08)
[2020-11-24 02:25] VITALS: BP 108/79
== END 2020-11-24 02:25 | disposition home or self-care (01) ==
LOC: FSED 11-24 02:00
DX: D57.00 Hb-SS disease with crisis, unspecified (principal)
CPT/HCPCS: 80048; 85025; 96372; 99283; J2270; J2550

== ENCOUNTER 2020-11-24 19:20 | Emergency (ER) | payer OTHER ==
[~2020-11-24] VITALS: Ht 165.1 cm; Wt 82.1 kg
[2020-11-24] MEDS ORDERED: SODIUM CHLORIDE 0.9% 1000ML 1,000 ML IV STA (19:43)
[2020-11-24] MEDS ORDERED: PROMETHAZINE 25MG/ NS 50ML (IV) IV ONE (19:45)
[2020-11-24] MEDS ORDERED: FAMOTIDINE 20 MG/2 ML VIAL IV ONE (19:45)
[2020-11-24 20:45] VITALS: BP 112/70
[2020-11-24] MEDS ORDERED: PROMETHAZINE HCL (IM) 25 MG/ML VIAL IM ONE ×2 (20:45)
== END 2020-11-24 20:45 | disposition home or self-care (01) ==
LOC: FSED 19:42
DX: O99.013 Anemia complicating pregnancy, third trimester (principal); O21.2 Late vomiting of pregnancy
CPT/HCPCS: 96372; 99282; J2550

== ENCOUNTER 2021-02-10 00:28 | Emergency (ER) | payer OTHER ==
[~2021-02-10] VITALS: Ht 165.1 cm; Wt 82.1 kg
[2021-02-10] MEDS ORDERED: SODIUM CHLORIDE 0.9% 1000ML 1,000 ML IV STA (00:45)
[2021-02-10] MEDS ORDERED: PROMETHAZINE HCL (IM) 25 MG/ML VIAL IM ONE (01:05)
[2021-02-10] MEDS ORDERED: MORPHINE SULFATE INJ 4 MG/ML INJ 1ML ONE (01:05)
[2021-02-10] MEDS ORDERED: SODIUM CHLORIDE 0.9% 500ML 500 ML ONE (01:05)
[2021-02-10] MEDS ORDERED: MORPHINE SULFATE INJ 4 MG/ML INJ 1ML IV STA (02:16)
[2021-02-10] MEDS ORDERED: PROMETHAZINE 25MG/ NS 50ML (IV) IV ONE (02:30)
== END 2021-02-10 02:50 | disposition home or self-care (01) ==
LOC: FSED 00:38
DX: N93.8 Other specified abnormal uterine and vaginal bleeding (principal); R10.30 Lower abdominal pain, unspecified; R11.2 Nausea with vomiting, unspecified
CPT/HCPCS: 80053; 85025; 99283; J2270; J2550; J7040

== ENCOUNTER 2021-03-24 16:17 | Emergency (ER) | payer OTHER ==
[~2021-03-24] VITALS: Ht 165.1 cm; Wt 65.8 kg
[2021-03-24] MEDS ORDERED: PERCOCET 10-321 EACH PO (16:56)
[2021-03-24] MEDS ORDERED: ACETAMINOPHEN/1 EAC1 PO (16:56)
[2021-03-24] MEDS ORDERED: CITALOPRAM HBR20 MG PO (16:56)
[2021-03-24] MEDS ORDERED: CLONAZEPAM1 MG PO (16:56)
[2021-03-24] MEDS ORDERED: LEVOFLOXACIN 500 MG TAB PO STA (17:06)
[2021-03-24] MEDS ORDERED: MORPHINE SULFATE INJ 4 MG/ML INJ 1ML IM ONE (17:06)
[2021-03-24] MEDS ORDERED: ONDANSETRON HCL 4 MG ORAL DISINTEGRATING TAB PO ONE (17:15)
[2021-03-24] MEDS ORDERED: PROMETHAZINE HCL 25 MG TAB PO STA (17:15)
[2021-03-24] MEDS ORDERED: LEVOFLOXACIN 500 MG TAB ONE (17:24)
[2021-03-24] MEDS ORDERED: MORPHINE SULFATE INJ 4 MG/ML INJ 1ML ONE (17:25)
[2021-03-24] MEDS ORDERED: ACETAMINOPHEN-1 EAC4 PO (17:26)
[2021-03-24] MEDS ORDERED: PROMETHAZINE HC25 M1 PO (17:26)
[2021-03-24] MEDS ORDERED: CIPRO500 MG PO (17:26)
[2021-03-24] MEDS ORDERED: BACTRIM DS TAB1 EACH PO (17:26)
== END 2021-03-24 17:37 | disposition home or self-care (01) ==
LOC: FSED 16:20
DX: S81.001A Unspecified open wound, right knee, initial encounter (principal); Z86.14 Personal history of Methicillin resistant Staphylococcus aureus infection; F17.210 Nicotine dependence, cigarettes, uncomplicated
CPT/HCPCS: 71046; 73562; 96372; 99283; J2270

== ENCOUNTER 2021-07-12 00:59 | Emergency (ER) | payer OTHER ==
[~2021-07-12] VITALS: Ht 165.1 cm; Wt 65.8 kg
[~2021-07-12 00:59] MED LIST changes: +ACETAMINOPHEN-1 EAC4 PO; +ACETAMINOPHEN/1 EAC1 PO; +CIPRO500 MG PO; +CITALOPRAM HBR20 MG PO; +CLONAZEPAM1 MG PO; +PERCOCET 10-321 EACH PO; +PROMETHAZINE HC25 M1 PO
[2021-07-12] MEDS ORDERED: HYDROCODONE/APAP 5MG-325MG TAB PO ONE (02:00)
[2021-07-12] MEDS ORDERED: PROMETHAZINE HCL 25 MG TAB PO PRN (02:00)
[2021-07-12] MEDS ORDERED: HYDROCODONE/APAP 5MG-325MG TAB ONE (02:01)
== END 2021-07-12 02:10 | disposition home or self-care (01) ==
LOC: FSED 01:41
DX: D57.80 Other sickle-cell disorders without crisis (principal); Z86.14 Personal history of Methicillin resistant Staphylococcus aureus infection; Z87.19 Personal history of other diseases of the digestive system
CPT/HCPCS: 99282

== ENCOUNTER 2021-10-17 23:12 | Emergency (ER) | payer OTHER ==
[~2021-10-17] VITALS: Ht 165.1 cm; Wt 65.8 kg
[2021-10-17] MEDS ORDERED: SODIUM CHLORIDE 0.9% 1000ML 1,000 ML IV STA (23:57)
== END 2021-10-18 01:01 | disposition home or self-care (01) ==
LOC: FSED 23:16
DX: S60.211A Contusion of right wrist, initial encounter (principal); W01.0XXA Fall on same level from slipping, tripping and stumbling without subsequent striking against object, initial encounter; Y92.015 Private garage of single-family (private) house as the place of occurrence of the external cause; F32.A Depression, unspecified; Z86.14 Personal history of Methicillin resistant Staphylococcus aureus infection
CPT/HCPCS: 99282